=== PATIENT | male | born 1970 | race Caucasian/White ===

== ENCOUNTER 2017-07-15 11:28 | Emergency (ER) | payer BC, OTHER ==
[~2017-07-15] VITALS: Ht 182.9 cm; Wt 97.6 kg
[2017-07-15 11:33] VITALS: TEMP 36.9; Ht 182.9 cm; Wt 97.6 kg
[2017-07-15] MEDS ORDERED: XYLOCAINE 1%/SOD BICARB 20 ML VIAL INFIL ONE (12:00)
--- NOTE | 2017-07-15 12:02 | EMERGENCY ROOM VISIT NOTE ---
ED Visit Note First contact with patient: 11:39 CHIEF COMPLAINT: Left arm laceration HISTORY OF PRESENT ILLNESS: This 46-year-old male patient presents to the emergency department ambulatory after cutting the left anterior forearm. The bleeding has stopped. Denies weakness or numbness of the hand or fingers. He rates his discomfort a 2/10. The patient denies any other injuries. The patient 's Tetanus shot is up to date. REVIEW OF SYSTEMS: A 6 system review of systems was completed with positives and pertinent negatives listed in the HPI. ALLERGIES: No known drug allergies MEDICATIONS: None PMH: None SOCIAL HISTORY: E patient lives locally with family PHYSICAL EXAM: Vital Signs: Reviewed Nurse's notes, vital signs stable. GENERAL : Since a 46-year-old male, in no acute distress, well-developed, well- nourished. SKIN: There is a 4 cm long laceration on the anterior aspect of the left forearm. The edges gape apart with traction. There is no foreign material in the wound and it looks clean. There is minimal bleeding. No deep structures such as tendons, bones, or nerves are seen in the base of the wound. Normal strength and movement of the hand and fingers. There are 2 superficial lacerations one to the hand and one to the second finger. Capillary refill less than 2 seconds. Normal sensation to light and sharp touch. EMERGENCY DEPARTMENT COURSE: I examined the patient. Using sterile technique the wound was cleaned with Betadine. The area was sterilely draped. 5 ml of 1% buffered lidocaine was used to anesthetize the laceration on the arm. Once the patient was numb, the wound was copiously irrigated under pressure with sterile saline. The wound was explored and was as described above. The laceration was repaired using 2 vertical mattress 4-0 nylon sutures and 7 simple interrupted 4- 0 nylon sutures with the wound edges being well approximated. The patient tolerated the procedure well. The bleeding stopped. The area was cleaned with sterile saline and dressed with bacitracin ointment and bandage. The patient was discharged home in good condition. Vital Signs Date Time Temp Pulse Resp B/P (MAP) Pulse Ox O2 Delivery O2 Flow Rate FiO2 07/15/17 13:24 68 16 166/97 99 Room Air 07/15/17 11:33 36.9 80 18 165/101 96 Room Air Departure Information Impression Primary Impression: Laceration Dispostion Home / Self-Care Condition GOOD Referrals Karrie Baker (PCP) Patient Instructions ED Laceration All, My [facility] Additional Instructions Keep wound clean and dry. Do not allow any crusting or dried blood to accumulate on sutures. If this occurs, use a 1:1 solution of hydrogen peroxide/ water on a Q-tip to clean the wound. Use an antibiotic ointment for 3-4 days, then let wound dry. Suture removal in 10-12 days. Return sooner for any signs of infection (increasing redness, swelling, drainage). Ice and elevate for swelling and pain. Ibuprofen 600 mg every 6 hrs for pain. Keep covered when in sun until sutures removed then SPF 50 or higher for one year. Vitamin E oil if desired two weeks after suture removal for reduction of scar.
[2017-07-15 13:24] VITALS: BP 166/97; PULSE 68; O2SAT 99
== END 2017-07-15 13:27 | disposition home or self-care (01) ==
LOC: C.EDB 11:32 → C.EDD 13:27
DX: S51.812A Laceration without foreign body of left forearm, initial encounter (principal); W45.8XXA Other foreign body or object entering through skin, initial encounter; Y92.9 Unspecified place or not applicable

== ENCOUNTER 2018-03-01 17:11 | Emergency (ER) | payer OTHER ==
[~2018-03-01] VITALS: Ht 182.9 cm; Wt 101.0 kg
[2018-03-01 17:27] VITALS: TEMP 36.7; Ht 182.9 cm; Wt 101.0 kg
[2018-03-01] MEDS ORDERED: ONDANSETRON INJ 2 MG/ML 2 ML VIAL IV STA (18:57)
[2018-03-01] MEDS ORDERED: MoRPHine SULFATE 10 MG/ML CARP/VIAL IV STA (18:57)
[2018-03-01] MEDS ORDERED: OPTIRAY 320 IV PRN (19:00)
[2018-03-01] MEDS ORDERED: LISI-461 PO (19:09)
[2018-03-01] MEDS ORDERED: MELO-84 PO (19:09)
[2018-03-01] MEDS ORDERED: ASPI81TA28 PO (19:09)
[2018-03-01] MEDS ORDERED: OMEP20TA PO (19:09)
[2018-03-01] MEDS ORDERED: WLLSR150 PO (19:09)
[2018-03-01] MEDS ORDERED: DILT120C41 PO (19:09)
[2018-03-01] MEDS ORDERED: MULT20CH PO (19:09)
[2018-03-01 19:11] LABS: BASO % 0.2 %; BASO ABS # 0.02 K/uL (0-0.2); EOS % 1.5 %; EOS ABS # 0.13 K/uL (0-0.5); HEMATOCRIT 45.7 % (42-52); HEMOGLOBIN 16.4 g/dL (14.0-18.0); IG# 0.04 K/uL (0.00-0.02); MEAN CELL VOLUME 97.6 fL (80-100); MEAN CORPUSCULAR HGB CONC 35.9 g/dl (32-36); MEAN PLATELET VOLUME 9.3 fL (7.4-10.4); MONO % 11.5 %; MONO ABS # 0.97 K/uL (0.11-0.59); NEUT % 67.3 %; NEUT ABS # 5.65 K/uL (1.4-6.5); PLATELET COUNT 180 K/uL (130-400); RED CELL DISTRIBUTION WIDTH CV 12.4 % (11.5-14.5); RED CELL DISTRIBUTION WIDTH SD 43.8 fL (36.4-46.3); WHITE BLOOD COUNT 8.41 K/uL (4.8-10.8)
[2018-03-01 19:29] LABS: ALBUMIN 3.9 gm/dl (3.4-5.0); CALCIUM 9.3 mg/dl (8.5-10.1); CREATININE 1.03 mg/dl (0.60-1.40); POTASSIUM 3.6 mmol/L (3.5-5.1)
[2018-03-01 19:32] LABS: TOTAL PROTEIN 7.5 gm/dl (6.4-8.2)
--- NOTE | 2018-03-01 20:12 | EMERGENCY ROOM VISIT NOTE ---
History First contact with patient: 18:30 Chief Complaint: GI ASSESSMENT Stated Complaint: GASTRO DISTRESS Nursing Triage Summary: Patient ambulatory to triage with an upright and steady gait, states "I have had stomach cramps for the last couple of days. The last couple of hours have been brutal. I have the chills and nausea. My hands are shaking like crazy. I haven' t eaten anything at all today. All of the pain is in my right lower abdomen and down into my pelvis. I am nauseated and feel constipated." Patient reports feeling like his blood sugar is low. Not diabetic. BS. History of Present Illness The patient is a 47 year old male who presents to the Emergency Room with complaints of abdominal pain. The patient reports that he has had some generalized abdominal cramping for the past 2 days. He states that last night, the pain began to settle into his right lower quadrant. He reports severe pain in the right lower abdomen which radiates across his lower abdomen to the left side. He states that the pain is constant and is a burning sensation with waves of more severe pain. He rates his discomfort a 5/10. He states that the pain is better when he is standing but is worse when he is lying flat down. Pain is associated with nausea and chills. He has not vomited. He has not eaten today. He denies any urinary symptoms or changes in his bowel movements. He denies any history of abdominal issues. He does report that he feels bloated. He has not taken any medication for his symptoms. Review of Systems A complete 10 point review of systems was reviewed with the patient with pertinent positives and negatives as per history of present illness. All else were negative. Past Medical/Surgical History Medical Problems: (1) Hypertension Social History Smoking Status: Former Smoker Alcohol Use: occasionally Marital Status: Housing Status: lives with significant other Occupation Status: employed Current/Historical Medications Scheduled Aspirin (Aspirin Ec), 81 MG PO DAILY Bupropion HCl (Bupropion HCl Sr), 150 MG PO BID Ciprofloxacin Hcl (Cipro), 500 MG PO BID Diltiazem Hcl (Dilt-Xr), 120 MG PO DAILY Lisinopril (Zestril), 10 MG PO BID Meloxicam (Mobic), 15 MG PO DAILY Metronidazole (Flagyl), 500 MG PO TID Multiple Vitamins W/ Minerals (Adult One Daily Gummies), 2 TABS PO DAILY Omeprazole (Omeprazole), 20 MG PO DAILY Scheduled PRN Oxycodone Ir (Roxicodone Ir), 1 TAB PO Q4H PRN for Pain Physical Exam Vital Signs Date Time Temp Pulse Resp B/P (MAP) Pulse Ox O2 Delivery O2 Flow Rate FiO2 03/01/18 21:09 76 20 162/97 97 03/01/18 20:23 68 98 03/01/18 19:53 74 16 177/92 94 Room Air 03/01/18 18:50 71 24 171/102 99 Room Air 03/01/18 17:27 36.7 85 18 181/87 97 Room Air Physical Exam VITALS: Vitals are noted on the nurse's note and reviewed by myself. GENERAL: This is a 47-year-old male, uncomfortable appearing, well-developed well-nourished. SKIN: The skin was without rashes. HEAD: Normocephalic atraumatic. EARS: External auditory canals clear, tympanic membranes pearly herring without erythema or effusion bilaterally. EYES: Pupils equal round and reactive to light and accommodation. MOUTH: Mucous membranes moist. Tonsils are not enlarged. Pharynx without erythema or exudate. HEART: Regular rate and rhythm without murmurs gallops or rubs. LUNGS: Clear to auscultation bilaterally without wheezes, rales or rhonchi. ABDOMEN: Positive bowel sounds x 4. Soft, moderate tenderness to palpation in the right lower quadrant. No guarding or rebound tenderness. Negative Rovsing sign. NEURO: Patient was alert and oriented to person place and time. Medical Decision & Procedures ER Provider Diagnostic Interpretation: ABDOMEN AND PELVIS CT WITH IV AND ORAL CONTRAST FINDINGS: There is a 4 mm nodule within the left lower lobe on image 9. No pneumoperitoneum. No pneumatosis. No fractures within the visualized osseous structures. Hepatic steatosis. The gallbladder, pancreas, spleen, adrenal glands, and kidneys are unremarkable. No hydronephrosis. No retroperitoneal lymphadenopathy. Normal bladder. Focal moderate bowel wall thickening within the mid sigmoid colon with surrounding pericolonic inflammatory change and a thickened diverticulum. This is consistent with acute diverticulitis. No perforation or abscess identified at this time. No evidence for bowel obstruction. Normal appendix. Distended common hepatic duct measuring 1.5 cm. However, no significant intrahepatic bile duct dilatation. IMPRESSION: 1. Acute sigmoid diverticulitis. No perforation or abscess at this time. Recommend follow-up to ensure resolution and to exclude the less likely possibility of an underlying colonic lesion. 2. Distended common hepatic duct measuring 1.5 cm. However, there is no significant intrahepatic bile duct dilatation and the mid to distal common bile duct appears normal in caliber. Therefore, this is of uncertain clinical significance. Recommend correlation with LFTs. 3. Hepatic steatosis. 4. A 4 mm nodule within the left lower lobe. Please refer to the chart below for recommended follow-up. Laboratory Results 03/01/18 18:56 Red Blood Count 4.68, Mean Corpuscular Volume 97.6, Mean Corpuscular Hemoglobin 35.0, Mean Corpuscular Hemoglobin Concent 35.9, Mean Platelet Volume 9.3, Neutrophils (%) (Auto) 67.3, Lymphocytes (%) (Auto) 19.0, Monocytes (%) (Auto) 11.5, Eosinophils (%) (Auto) 1.5, Basophils (%) (Auto) 0.2, Neutrophils # (Auto ) 5.65, Lymphocytes # (Auto) 1.60, Monocytes # (Auto) 0.97, Eosinophils # (Auto ) 0.13, Basophils # (Auto) 0.02 03/01/18 18:56 Test 03/01/18 17:30 03/01/18 18:40 03/01/18 18:56 Bedside Glucose 87 mg/dl (70-99) Urine Color DK YELLOW Urine Appearance CLEAR (CLEAR) Urine pH 7.5 (4.5-7.5) Urine Specific [place] 1.023 (1.000-1.030) Urine Protein NEG (NEG) Urine Glucose (UA) NEG (NEG) Urine Ketones NEG (NEG) Urine Occult Blood NEG (NEG) Urine Nitrite NEG (NEG) Urine Bilirubin NEG (NEG) Urine Urobilinogen NEG (NEG) Urine Leukocyte Esterase NEG (NEG) White Blood Count 8.41 K/uL (4.8-10.8) Red Blood Count 4.68 M/uL (4.7-6.1) Hemoglobin 16.4 g/dL (14.0-18.0) Hematocrit 45.7 % (42-52) Mean Corpuscular Volume 97.6 fL (80-100) Mean Corpuscular Hemoglobin 35.0 pg (25-34) Mean Corpuscular Hemoglobin Concent 35.9 g/dl (32-36) Platelet Count 180 K/uL (130-400) Mean Platelet Volume 9.3 fL (7.4-10.4) Neutrophils (%) (Auto) 67.3 % Lymphocytes (%) (Auto) 19.0 % Monocytes (%) (Auto) 11.5 % Eosinophils (%) (Auto) 1.5 % Basophils (%) (Auto) 0.2 % Neutrophils # (Auto) 5.65 K/uL (1.4-6.5) Lymphocytes # (Auto) 1.60 K/uL (1.2-3.4) Monocytes # (Auto) 0.97 K/uL (0.11-0.59) Eosinophils # (Auto) 0.13 K/uL (0-0.5) Basophils # (Auto) 0.02 K/uL (0-0.2) RDW Standard Deviation 43.8 fL (36.4-46.3) RDW Coefficient of Variation 12.4 % (11.5-14.5) Immature Granulocyte % (Auto) 0.5 % Immature Granulocyte # (Auto) 0.04 K/uL (0.00-0.02) Anion Gap 9.0 mmol/L (3-11) Est Creatinine Clear Calc Drug Dose 109.1 ml/min Estimated GFR () 99.8 Estimated GFR (Non- 86.1 BUN/Creatinine Ratio 11.9 (10-20) Calcium Level 9.3 mg/dl (8.5-10.1) Total Bilirubin 0.9 mg/dl (0.2-1) Aspartate Amino Transf (AST/SGOT) 106 U/L (15-37) Alanine Aminotransferase (ALT/SGPT) 171 U/L (12-78) Alkaline Phosphatase 128 U/L (45-117) Total Protein 7.5 gm/dl (6.4-8.2) Albumin 3.9 gm/dl (3.4-5.0) Globulin 3.6 gm/dl (2.5-4.0) Albumin/Globulin Ratio 1.1 (0.9-2) Lipase 148 U/L (73-393) Medications Administered Medications (Trade) Dose Ordered Sig/Vani Route Start Time Stop Time Status Last Admin Dose Admin Morphine Sulfate (MoRPHine SULFATE INJ) 6 mg NOW STAT IV 03/01/18 18:57 03/01/18 18:58 DC 03/01/18 19:08 6 MG Ondansetron HCl (Zofran Inj) 4 mg NOW STAT IV 03/01/18 18:57 03/01/18 18:58 DC 03/01/18 19:07 4 MG Ciprofloxacin (Cipro 500MG Home Pack) 1 homepack UD ONCE PO 03/01/18 20:45 03/01/18 20:46 DC 03/01/18 21:00 1 HOMEPACK Metronidazole (Flagyl Tab) 1,000 mg NOW STAT PO 03/01/18 20:33 03/01/18 20:36 DC 03/01/18 21:00 1,000 MG Oxycodone HCl (Roxicodone Immediate Rel 5MG Home Pack) 1 homepack UD ONCE PO 03/01/18 21:00 03/01/18 21:01 DC 03/01/18 21:00 1 HOMEPACK ED Course The patient was evaluated as above. Labs were drawn and IV access was obtained. Patient was medicated with 6 mg morphine and [address] of the abdomen and pelvis was performed and read by radiology as above. Patient was reevaluated and findings were discussed. Home packs of medications were ordered. Discharge instructions were reviewed with the patient. The patient verbalized understanding of my assessment and treatment plan and was discharged home in good condition. Medical Decision Differential diagnosis includes appendicitis, kidney stone, diverticulitis, colitis, bowel obstruction, among others. The patient is a 47-year-old male who presents today complaining of right lower quadrant pain. Labs revealed no leukocytosis. Urinalysis was not suggestive of infection. No blood in the urine. CT scan did show evidence of acute diverticulitis. CT additionally showed distention of the common hepatic duct, but no intrahepatic bile duct dilatation. LFTs were mildly elevated. Patient was informed of this finding. I am unsure of the clinical significance at this time, although he will certainly need to be rechecked by his primary care provider. The patient was advised to avoid Tylenol and alcohol. I did check with the pharmacist to ensure that ciprofloxacin and Flagyl were safe to take and did not need to be hepatically adjusted. She confirmed that these were safe to take at the regular dosage for diverticulitis. Patient did request something for pain. He was given a small amount of OxyIR but urged to take this sparingly so as not to mask any worsening symptoms. He will need follow- up with his PCP for recheck of the LFTs as well as follow-up of this episode of diverticulitis. The patient's case was reviewed with Dr. Stephens, ED attending physician, who agreed with my assessment and treatment plan. Based on the patient's presentation and work up, I feel the patient is stable for outpatient treatment. The patient was educated to return to the emergency department for any worsening of their current condition or new/concerning symptoms. He will follow up with his primary care provider. Medication Reconcilliation Current Medication List: was personally reviewed by me Blood Pressure Screening Patient's blood pressure: Elevated blood pressure Blood pressure disposition: Elevated BP felt to be situational, Referred to PCP Impression Primary Impression: Acute diverticulitis Additional Impression: Elevated LFTs Departure Information Dispostion Home / Self-Care Condition GOOD Prescriptions Oxycodone Ir (Roxicodone Ir) 5 Mg Tab 1 TAB PO Q4H Y for Pain, #8 TAB For Initial Treatment Prov: Faiza Pacheco PA-C 03/01/18 Ciprofloxacin Hcl (CIPRO) 500 Mg Tab 500 MG PO BID for 10 Days, #20 TAB Prov: Faiza Pacheco PA-C 03/01/18 Metronidazole (FLAGYL) 500 Mg Tab 500 MG PO TID for 10 Days, #30 TAB Prov: Faiza Pacheco PA-C 03/01/18 Referrals Lizet Montenegro D.O. (PCP) Patient Instructions ED Diverticulitis, My [facility] Additional Instructions You have been treated in the Emergency Department for your Abdominal Pain. Your CT showed diverticulitis. You were prescribed ciprofloxacin to be taken 500 mg twice daily. This is an antibiotic. All antibiotics have the potential to cause diarrhea. Stop this medication and contact a medical provider if you were to develop any significant adverse side effects including: wheezing, shortness of breath, passing out, vomiting, or a diffuse rash. Always take antibiotics as directed and COMPLETE the ENTIRE course regardless of the improvement of your symptoms. You were prescribed Flagyl to be taken 500 mg 3 times daily. This is an antibiotic. All antibiotics have the potential to cause diarrhea. Stop this medication and contact a medical provider if you were to develop any significant adverse side effects including: wheezing, shortness of breath, passing out, vomiting, or a diffuse rash. Always take antibiotics as directed and COMPLETE the ENTIRE course regardless of the improvement of your symptoms. Avoid all alcohol while taking this medication. You have been prescribed Oxy IR to be used for pain control. This is a narcotic medication. You cannot drive or consume alcohol while on this medicine. This medicine should only be used for pain that cannot be controlled with over-the- counter pain medicines. For pain control, you can use the following [id number] medicines (if >12 yo): - Regular strength (200 mg/tab) Advil (ibuprofen) 3-4 tabs every 4-6 hours as needed. Do not exceed a dose of 3200 mg per day. You should keep a clear liquid diet for the next 48 hours, then advance to eating foods as tolerated. As with any trip to the Emergency Department, you should follow-up with your Primary Care Provider from today's visit. Call them to schedule an appointment within 1-2 weeks. You had some elevation of your liver function tests. This should be rechecked by her primary care provider. In the meantime, avoid alcohol and Tylenol as these can be harmful to your liver. Return to the emergency department if your symptoms persist despite treatment plan outlined above or if the following symptoms occur: Worsening pain, fevers, vomiting, passing out, or other new/concerning symptoms. Problem Qualifiers
--- NOTE | 2018-03-01 20:13 | DIAGNOSTIC IMAGING REPORT ---
ABDOMEN AND PELVIS CT WITH IV AND ORAL CONTRAST CT DOSE: 595.60 mGy.cm HISTORY: Right lower quadrant abdominal pain. TECHNIQUE: Multiaxial CT images of the abdomen and pelvis were performed following the use of intravenous and oral contrast. A dose lowering technique was utilized adhering to the principles of ALARA. COMPARISON STUDY: None. FINDINGS: There is a 4 mm nodule within the left lower lobe on image 9. No pneumoperitoneum. No pneumatosis. No fractures within the visualized osseous structures. Hepatic steatosis. The gallbladder, pancreas, spleen, adrenal glands, and kidneys are unremarkable. No hydronephrosis. No retroperitoneal lymphadenopathy. Normal bladder. Focal moderate bowel wall thickening within the mid sigmoid colon with surrounding pericolonic inflammatory change and a thickened diverticulum. This is consistent with acute diverticulitis. No perforation or abscess identified at this time. No evidence for bowel obstruction. Normal appendix. Distended common hepatic duct measuring 1.5 cm. However, no significant intrahepatic bile duct dilatation. IMPRESSION: 1. Acute sigmoid diverticulitis. No perforation or abscess at this time. Recommend follow-up to ensure resolution and to exclude the less likely possibility of an underlying colonic lesion. 2. Distended common hepatic duct measuring 1.5 cm. However, there is no significant intrahepatic bile duct dilatation and the mid to distal common bile duct appears normal in caliber. Therefore, this is of uncertain clinical significance. Recommend correlation with LFTs. 3. Hepatic steatosis. 4. A 4 mm nodule within the left lower lobe. Please refer to the chart below for recommended follow-up. Please refer to below summary of Fleischner criteria recommendations for follow-up of incidental CT nodules (Lori Fuentes, Guidelines for management of small pulmonary nodules detected on CT scans: A statement from the Fleischner Society, Radiology 237: [phone].) SOLID NODULES Solitary nodule size: <6 mm * Low risk patients: no follow-up needed * high risk patients: optional CT at 12 months Solitary nodule size: 6-8 mm * Low risk patients: follow-up at 6-12 months, then consider further follow-up at 18-24 months * high risk patients: initial follow-up CT at 6-12 months and then at 18-24 months if no change Solitary nodule size: >8 mm * either low or high risk patients - consider follow-up CT at 3 months, and/or CT-PET, and/or biopsy Multiple nodules size: <6 mm * Low risk patients: no routine follow-up * high risk patients: optional CT at 12 months Multiple nodules size: 6-8 mm * Low risk patients: follow-up at 3-6 months, then consider further follow-up at 18-24 months * high risk patients: follow-up at 3-6 months, then at 18-24 months if no change Multiple nodules size: >8 mm * Low risk patients: follow-up at 3-6 months, then consider further follow-up at 18-24 months * high risk patients: follow-up at 3-6 months, then at 18-24 months if no change Note: newly detected indeterminate nodule in persons 35 years of age or older. * Low risk patients: minimal or absent history of smoking and/or other known risk factors * high risk patients: history of smoking or of other known risk factors (e.g. first degree relative with lung cancer, or exposure to asbestos, radon, uranium) * if a nodule up to 8 mm is partly solid or is ground glass further follow-up is required after 24 months to exclude possible slow growing adenocarcinoma (KERRI) SUBSOLID NODULES Solitary pure ground-glass nodule * nodule size <6 mm - no CT follow-up required * nodule size >=6 mm - follow-up CT at 6-12 months, then every 2 years until 5 years Solitary part-solid nodule * nodule size <6 mm - no CT follow-up required * nodule size >=6 mm - follow-up CT at 3-6 months. If unchanged, and solid component remains <6 mm, then annual follow-up for 5 years Multiple subsolid nodules * nodule size <6 mm - follow-up CT at 3-6 months, consider further follow-up at 2 and 4 years if stable * nodule size >=6 mm - follow-up CT at 3-6 months, subsequent management based on the most suspicious nodule(s) Electronically signed by: Paddy Lucero M.D. 03/01/2018 8:12 PM Dictated Date/Time: 03/01/2018 8:06 PM
[2018-03-01] MEDS ORDERED: METRONIDAZOLE 250 MG TAB PO STA (20:33)
[2018-03-01] MEDS ORDERED: METR500T PO (20:37)
[2018-03-01] MEDS ORDERED: CIPR-255 PO (20:37)
[2018-03-01] MEDS ORDERED: HYDR-5688 PO (20:38)
[2018-03-01] MEDS ORDERED: OXYC1TAB3 PO (20:44)
[2018-03-01] MEDS ORDERED: CIPROFLOXACIN 500MG HOME PACK PO ONE (20:45)
[2018-03-01] MEDS ORDERED: NORCO 5/325MG HOME PACK PO ONE (20:45)
[2018-03-01] MEDS ORDERED: OXYCODONE IR HOME PACK PO ONE (21:00)
[2018-03-01 21:09] VITALS: BP 162/97; PULSE 76; O2SAT 97
== END 2018-03-01 21:11 | disposition home or self-care (01) ==
LOC: C.EDB 17:12 → C.EDC 21:11
DX: K57.92 Diverticulitis of intestine, part unspecified, without perforation or abscess without bleeding (principal); R79.89 Other specified abnormal findings of blood chemistry; K83.8 Other specified diseases of biliary tract; I10 Essential (primary) hypertension; Z79.82 Long term (current) use of aspirin; Z87.891 Personal history of nicotine dependence

== ENCOUNTER → 2018-06-29 | Outpatient (CLI) | payer OTHER ==
[~2018-06-29] MED LIST: ASPI81TA28 PO; ATOR-26 PO; DILT120C41 PO; LISI-461 PO; METO25TA56 PO; MULT20CH PO; NTRGSL/4 UT; OMEP20TA PO; PLV75 PO; TRMO2580 TOP; WLLSR150 PO
--- NOTE | 2018-06-29 15:55 | DIAGNOSTIC IMAGING REPORT ---
SOFT TISS HEAD/NECK-THYROID CLINICAL HISTORY: 47 years-old Male with R22.1 Localized swelling, mass or lump of neckWith attention to. Acute pain and swelling of the left supraclavicular neck COMPARISON: None available TECHNIQUE: Multiple real time sonographic images of the left and right supraclavicular neck were obtained accessing herring scale appearance and color doppler flow. FINDINGS: Within the area of clinical concern within the left supraclavicular tissues, no focal mass, lymph node, tissue heterogeneity, hyperemia or drainable fluid collection identified. Images of the right supraclavicular tissues were also obtained for comparison. Symmetric appearing tissue noted bilaterally. IMPRESSION: No focal mass or other abnormality identified within the left supraclavicular tissues. The above report was generated using voice recognition software. It may contain grammatical, syntax or spelling errors. Electronically signed by: Juan A March M.D. 06/29/2018 3:53 PM Dictated Date/Time: 06/29/2018 3:52 PM
== END | disposition home or self-care (01) ==
LOC: C.ULTRBC 15:15
PROVIDERS: ATTEND Nurse Practitioner Family
DX: R22.1 Localized swelling, mass and lump, neck (principal)

== ENCOUNTER → 2018-06-29 | Outpatient (CLI) | payer OTHER ==
[2018-06-29 17:34] LABS: ALBUMIN 3.8 gm/dl (3.4-5.0); ALKALINE PHOSPHATASE 96 U/L (45-117); ALT/SGPT 140 U/L (12-78); AST/SGOT 99 U/L (15-37); BLOOD UREA NITROGEN 13 mg/dl (7-18); CALCIUM 8.8 mg/dl (8.5-10.1); CARBON DIOXIDE 28 mmol/L (21-32); CHOLESTEROL 123 mg/dl (0-200); CREATININE 1.09 mg/dl (0.60-1.40); GLUCOSE 79 mg/dl (70-99); LDL CHOLESTEROL CALCULATED 52 mg/dl; POTASSIUM 3.8 mmol/L (3.5-5.1); SODIUM 140 mmol/L (136-145); TOTAL PROTEIN 7.1 gm/dl (6.4-8.2)
== END | disposition home or self-care (01) ==
LOC: C.LABBFT 11:17
PROVIDERS: ATTEND Neuromusculoskeletal Medicine & OMM
DX: R79.89 Other specified abnormal findings of blood chemistry (principal)

== ENCOUNTER → 2018-07-04 | Outpatient (CLI) | payer OTHER | END | disposition home or self-care (01) | LOC: C.LAB1850 10:52 | PROVIDERS: ATTEND Neuromusculoskeletal Medicine & OMM | DX: T14.8XXA Other injury of unspecified body region, initial encounter (principal); X58.XXXA Exposure to other specified factors, initial encounter ==

== ENCOUNTER → 2018-07-15 | Outpatient (CLI) | payer OTHER ==
[~2018-07-15] MED LIST changes: +CLOP1TAB15 PO; +CRS20 PO; +LISI40TA PO; -NTRGSL/4 UT; +OPTIRAY 320 IV PRN; +PANT40TA2 PO
--- NOTE | 2018-07-15 18:15 | DIAGNOSTIC IMAGING REPORT ---
CT OF THE ABDOMEN AND PELVIS WITH CONTRAST CLINICAL HISTORY: Left lower quadrant pain. Rectal bleeding. History of diverticulitis. COMPARISON STUDY: CT of the abdomen and pelvis March 01, 2018. TECHNIQUE: Following IV administration of 93 mL of Optiray-320, axial images of the abdomen and pelvis were obtained from the lung bases to the proximal femurs. Images were reviewed in the axial, sagittal, and coronal planes. IV contrast was administered without complication. A dose lowering technique was utilized adhering to the principles of ALARA. Oral contrast was administered. CT DOSE: 950.61 mGy.cm FINDINGS: Fatty infiltration of the liver is noted. Dilatation of the common hepatic duct is unchanged since exam of March 01, 2018. There is no pancreatic ductal dilatation. No hepatic lesions are identified. The spleen, adrenal glands and kidneys are normal. There is no evidence for a bowel obstruction. The appendix is normal. There is sigmoid diverticulosis. There is minimal infiltration adjacent to the proximal sigmoid colon. There is mild colonic wall thickening. No free air or abscess is present. No suspicious osseous lesion is noted. There is no lymphadenopathy. IMPRESSION: 1. Sigmoid diverticulosis with minimal infiltration adjacent to the proximal sigmoid colon which favors mild acute sigmoid diverticulitis. No free air or abscess. 2. Fatty liver. 3. No change in mild dilatation of the common hepatic duct since exam of March 01, 2018. Stability favors a benign etiology however correlation with obstructive liver function tests is recommended. Electronically signed by: Pieter Villegas M.D. 07/15/2018 6:14 PM Dictated Date/Time: 07/15/2018 6:07 PM
== END | disposition home or self-care (01) ==
LOC: C.CTS 15:37
PROVIDERS: ATTEND Physician Assistant
DX: R10.32 Left lower quadrant pain (principal); Z87.19 Personal history of other diseases of the digestive system; K62.5 Hemorrhage of anus and rectum; K62.89 Other specified diseases of anus and rectum; K76.0 Fatty (change of) liver, not elsewhere classified; K57.30 Diverticulosis of large intestine without perforation or abscess without bleeding

== ENCOUNTER → 2018-07-18 | Outpatient (CLI) | payer OTHER ==
[~2018-07-18] MED LIST changes: -OPTIRAY 320 IV PRN
[2018-07-18 12:46] LABS: ALBUMIN 3.6 gm/dl (3.4-5.0); ALKALINE PHOSPHATASE 118 U/L (45-117); ALT/SGPT 98 U/L (12-78); AST/SGOT 73 U/L (15-37); BLOOD UREA NITROGEN 13 mg/dl (7-18); CALCIUM 8.4 mg/dl (8.5-10.1); CARBON DIOXIDE 26 mmol/L (21-32); CREATININE 1.02 mg/dl (0.60-1.40); GLUCOSE 99 mg/dl (70-99); POTASSIUM 3.8 mmol/L (3.5-5.1); SODIUM 139 mmol/L (136-145); TOTAL PROTEIN 7.1 gm/dl (6.4-8.2)
[2018-07-18 13:35] LABS: HEP C IGG 13 YRS+OLDER_RFLX NEG (NEG)
[2018-07-19 15:09] LABS: ANA SCREEN TC 249X POSITIVE (NEGATIVE)
[2018-07-19 16:54] LABS: ANA TITER 1:40 TITER (<1:40)
== END | disposition home or self-care (01) ==
LOC: C.LAB1850 11:34
PROVIDERS: ATTEND Physician Assistant
DX: R94.5 Abnormal results of liver function studies (principal)

== ENCOUNTER 2018-07-21 12:01 | Inpatient (IN) | payer OTHER ==
[~2018-07-21] VITALS: Ht 180.3 cm; Wt 102.0 kg
[~2018-07-21 12:01] MED LIST changes: -CLOP1TAB15 PO; -CRS20 PO; -LISI40TA PO; -PANT40TA2 PO
[2018-07-21] MEDS ORDERED: SODIUM CHLORIDE 0.9% 1000ML 500 ML IV STA (12:27)
[2018-07-21] MEDS ORDERED: CLOP1TAB15 PO (12:31)
[2018-07-21] MEDS ORDERED: LISI40TA PO (12:31)
--- NOTE | 2018-07-21 13:05 | DIAGNOSTIC IMAGING REPORT ---
CHEST ONE VIEW PORTABLE CLINICAL HISTORY: 47 years-old Male presenting with CHEST PAIN. TECHNIQUE: Portable upright AP view of the chest was obtained. COMPARISON: None. FINDINGS: Cardiomediastinal silhouette normal. No focal opacity. No large effusion or pneumothorax. Osseous structures normal. Upper abdomen normal. IMPRESSION: 1. No acute cardiopulmonary disease. Electronically signed by: Raphael Ray M.D. 07/21/2018 1:04 PM Dictated Date/Time: 07/21/2018 1:03 PM
[2018-07-21 13:16] LABS: HEMATOCRIT 42.6 % (42-52); HEMOGLOBIN 14.9 g/dL (14.0-18.0); MEAN CELL VOLUME 98.2 fL (80-100); MEAN CORPUSCULAR HEMOGLOBIN 34.3 pg (25-34); MEAN PLATELET VOLUME 9.5 fL (7.4-10.4); PLATELET COUNT 183 K/uL (130-400); RED CELL DISTRIBUTION WIDTH CV 12.4 % (11.5-14.5); RED CELL DISTRIBUTION WIDTH SD 44.3 fL (36.4-46.3)
[2018-07-21 13:19] LABS: ALBUMIN 3.9 gm/dl (3.4-5.0); CREATININE 1.33 mg/dl (0.60-1.40); POTASSIUM 3.7 mmol/L (3.5-5.1); TOTAL PROTEIN 7.7 gm/dl (6.4-8.2)
[2018-07-21] MEDS ORDERED: ACETAMINOPHEN 325 MG TAB PO PRN (14:30)
[2018-07-21] MEDS ORDERED: ALUMINUM/MAGNESIUM/SIMETH (MAALOX MAX) 30 ML UDC PO PRN (14:30)
[2018-07-21] MEDS ORDERED: NITROGLYCERIN 0.4 MG SL PER TAB CHARGE SL PRN (14:30)
[2018-07-21] MEDS ORDERED: ZOLPIDEM TARTRATE 5 MG TAB PO PRN (14:30)
[2018-07-21] MEDS ORDERED: POLYETHYLENE (MIRALAX) 17 GM PACK PO PRN (14:30)
[2018-07-21] MEDS ORDERED: MoRPHine SULFATE 2 MG/ML CARP IV PRN (14:30)
[2018-07-21] MEDS ORDERED: ONDANSETRON INJ 2 MG/ML 2 ML VIAL IV PRN (14:30)
[2018-07-21] MEDS ORDERED: HEPARIN 25000 UNIT/500 ML D5W ONE (14:30)
[2018-07-21] MEDS ORDERED: MAGNESIUM HYDROXIDE SUSP 30 ML UDC PO PRN (14:30)
--- NOTE | 2018-07-21 14:35 | History and Physical ---
History & Physical Date & Time of Service: Jul 21, 2018 at 14:28 Chief Complaint: Chest Pain Primary Care Physician: Moise Drake D.O. History of Present Illness Source: patient, hospital records, other 47 y/o M Hx CAD, HTN, HLD. Cath 05/16 resulting in RCA stent. The pt presents with central CP, SOB, nausea and diaphoresis. He reports that he was working the prior day when he developed symptoms. He stopped working and drove home. His symptoms had abated within 15 min, however, he continued to have a poking sensation in his chest overnight. He was attending cardiac rehab prior to arrival when he developed CP again. He was provided with NTG which led to resolution of the pain. An EKG and labs were obtained. The EKG did not show ischemic changes. Initial troponin returned elevated however. The pt reports missing one dose of Plavix 5 days ago and has otherwise complied with his medications. Past Medical/Surgical History 1) HTN 2) HLD 3) CAD - RCA stent - Cath report 05/16: 1. Left main coronary artery: The LMCA is large in caliber. No significant CAD. 2. Left anterior descending: The LAD is large in caliber and extends to the apex. Proximal LAD 10-20%. There is a small caliber D1, large caliber D2, and small to medium caliber D3. No significant CAD within the diagonal vessels or remaining LAD. 3. Circumflex: The circumflex is a large caliber vessel and continues distally as a small caliber vessel. There is a large caliber OM1. No significant CAD within the circumflex system. 4. Right coronary artery: The RCA is dominant and a large caliber vessel. Proximal RCA 30%. Mid RCA has a 50-70% stenosis. There is a large caliber PDA and medium caliber PL without significant CAD. NAVID 3 flow. 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 Marital Status: Occupational Status: employed Allergies Coded Allergies: Codeine (Verified Allergy, Intermediate, Hives, swelling, 07/21/18) Penicillins (Verified Allergy, Intermediate, Hives, swelling, 07/21/18) Home Medications Scheduled Aspirin (Aspirin Ec), 81 MG PO DAILY Atorvastatin (Lipitor), 1 TAB PO DAILY Clopidogrel (Plavix), 75 MG PO DAILY Diltiazem Hcl (Dilt-Xr), 120 MG PO DAILY Lisinopril (Zestril), 40 MG PO DAILY Metoprolol Tartrate (Lopressor) (Lopressor), 1 TAB PO BID Multiple Vitamins W/ Minerals (Adult One Daily Gummies), 2 TABS PO DAILY Omeprazole (Omeprazole), 20 MG PO DAILY Review of Systems Constitutional: + sweats, No fever, No chills Eyes: No worsening of vision ENT: No hearing loss, No unusual epistaxis, No nasal symptoms Respiratory: + shortness of breath (with CP), No cough, No sputum, No wheezing Abdomen: No nausea Musculoskeletal: No joint pain Genitourinary - Male: No hematuria, No dysuria Neurologic: No memory loss, No paralysis, No weakness Psychiatric: No depression symptoms Endocrine: No fatigue Hematologic / Lymphatic: No abnormal bleeding/bruising Integumentary: No rash Allergic / Immunologic: No environmental allergies Physical Exam Vital Signs Date Time Temp Pulse Resp B/P (MAP) Pulse Ox O2 Delivery O2 Flow Rate FiO2 07/21/18 13:47 52 20 157/74 97 Room Air 07/21/18 12:43 59 20 142/83 97 Room Air 07/21/18 12:08 61 07/21/18 12:04 97 Room Air 07/21/18 12:04 97 Room Air 07/21/18 12:04 37.2 58 16 163/81 97 Room Air General Appearance: WD/WN, no apparent distress Head: normocephalic Eyes: normal inspection ENT: normal ENT inspection, pharynx normal Neck: supple, no JVD Respiratory/Chest: chest non-tender, lungs clear, normal breath sounds Cardiovascular: regular rate, rhythm, no edema, no gallop Abdomen/GI: normal bowel sounds, non tender, soft Back: normal inspection, no CVA tenderness Extremities/Musculoskelatal: normal inspection, no calf tenderness 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, no motor/sensory deficits, alert, oriented x 3 Skin: normal color Diagnostics Laboratory Results Results Past 24 Hours Test 07/21/18 12:20 Range/Units White Blood Count 5.70 4.8-10.8 K/uL Red Blood Count 4.34 4.7-6.1 M/uL Hemoglobin 14.9 14.0-18.0 g/dL Hematocrit 42.6 42-52 % Mean Corpuscular Volume 98.2 80-100 fL Mean Corpuscular Hemoglobin 34.3 25-34 pg Mean Corpuscular Hemoglobin Concent 35.0 32-36 g/dl RDW Standard Deviation 44.3 36.4-46.3 fL RDW Coefficient of Variation 12.4 11.5-14.5 % Platelet Count 183 130-400 K/uL Mean Platelet Volume 9.5 7.4-10.4 fL Prothrombin Time 10.9 9.0-12.0 SECONDS Prothromb Time International Ratio 1.0 0.9-1.1 Activated Partial Thromboplast Time 28.0 21.0-31.0 SECONDS Partial Thromboplastin Ratio 1.1 Sodium Level 134 136-145 mmol/L Potassium Level 3.7 3.5-5.1 mmol/L Chloride Level 101 98-107 mmol/L Carbon Dioxide Level 23 21-32 mmol/L Anion Gap 10.0 3-11 mmol/L Blood Urea Nitrogen 18 7-18 mg/dl Creatinine 1.33 0.60-1.40 mg/dl Est Creatinine Clear Calc Drug Dose 84.6 ml/min Estimated GFR () 73.3 Estimated GFR (Non- 63.2 BUN/Creatinine Ratio 13.6 10-20 Random Glucose 106 70-99 mg/dl Calcium Level 9.0 8.5-10.1 mg/dl Total Bilirubin 0.9 0.2-1 mg/dl Aspartate Amino Transf (AST/SGOT) 155 15-37 U/L Alanine Aminotransferase (ALT/SGPT) 149 12-78 U/L Alkaline Phosphatase 120 45-117 U/L Troponin I 0.270 0-0.045 ng/ml Total Protein 7.7 6.4-8.2 gm/dl Albumin 3.9 3.4-5.0 gm/dl Globulin 3.8 2.5-4.0 gm/dl Albumin/Globulin Ratio 1.0 0.9-2 EKG Sinus jessenia, LVH Impression Assessment and Plan 47 y/o M Hx CAD, HTN, HLD. Cath 05/16 resulting in RCA stent. The pt presents with central CP, SOB, nausea and diaphoresis. He reports that he was working the prior day when he developed symptoms. He stopped working and drove home. His symptoms had abated within 15 min, however, he continued to have a poking sensation in his chest overnight. He was attending cardiac rehab prior to arrival when he developed CP again. He was provided with NTG which led to resolution of the pain. An EKG and labs were obtained. The EKG did not show ischemic changes. Initial troponin returned elevated however. The pt reports missing one dose of Plavix 5 days ago and has otherwise complied with his medications. 1) CAD/NSTEMI - placed on full-dose Heparin - cont Lipitor, ASA, Plavix, Metoprolol. Cardiology consulted as there is concern for stent occlusion. 2) HTN - cont Diltiazem, Metoprolol 3) HLD - cont Lipitor - is on high-intensity Tx Full code - Full dose Heparin Total time for this admit including review of labs, meds, imaging, records - discussion with pt and ER attending - 38 min Resuscitation Status VTE Prophylaxis Will order VTE Prophylaxis: Yes
[2018-07-21 15:00] VITALS: O2SAT 98; Ht 180.3 cm; Wt 102.0 kg
--- NOTE | 2018-07-21 15:17 | EMERGENCY ROOM VISIT NOTE ---
History Report prepared by Shiloh: Jose Fontaine Under the Supervision of: Dr. Jose Perez M.D. First contact with patient: 12:23 Chief Complaint: CARDIAC ASSESSMENT Stated Complaint: CHEST PAIN Nursing Triage Summary: Patient was at cardiac rehab due to having chest pain & pressure yesterday while working. 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 PT reported SOB last evening but denies now. Cardiac rehab specialist administered 1 nitro tablet which relieved the chest pressure. EKG showed sinus bradycardia, but the nurse reported that his troponin was mildly elevated. This past May pt had a cath performed and stent placed RCA. PT is pain free at this time. History of Present Illness The patient is a 47 year old male who presents to the Emergency Room with complaints of intermittent chest pain beginning yesterday around 15:30-16:00. 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 He reports that after a [address] home, the chest pressure became a minor "twinge," and was resolved with rest. He notes that last night he was still experiencing the diaphoresis and shortness of breath. He states that today, he has been experiencing more chest pain, describing the sensation as if someone is poking him in that region. The patient reports that he went to cardiac rehabilitation today and was found to have an elevated troponin level. He notes that he was given nitroglycerin today, which improved his symptoms. He notes he currently feels "okay." The patient denies a history of these symptoms, but states that he had a coronary stent placed 5 weeks ago. He states that he regularly takes aspirin and Plavix, noting that 8 days ago he missed one dose. He reports that this past weekend he was placed on 2 antibiotics, possibly Cipro and Flagyl, for diverticulitis. He states his PCP is Dr. Vidal Love. Source of History: patient Onset: yesterday around 15:30-16:00 Position: chest Symptom Intensity: yesterday mild to moderate Timing: intermittent Modifying Factors (Worsening): exertion Modifying Factors (Relieving): rest, other (nitroglycerin) Associated Symptoms: + diaphoresis, + SOB Review of Systems See HPI for pertinent positives & negatives. A total of 10 systems reviewed and were otherwise negative. Past Medical & Surgical Medical Problems: (1) Hypertension (2) NSTEMI (non-ST elevated myocardial infarction) Family History Cancer Diabetes mellitus FH: heart disease FHx: lung disease Kidney disease Kidney stones Social History Smoking Status: Former Smoker Alcohol Use: occasionally Marital Status: Housing Status: lives with significant other Occupation Status: employed Current/Historical Medications Scheduled Aspirin (Aspirin Ec), 81 MG PO DAILY Atorvastatin (Lipitor), 1 TAB PO DAILY Clopidogrel (Plavix), 75 MG PO DAILY Diltiazem Hcl (Dilt-Xr), 120 MG PO DAILY Lisinopril (Zestril), 40 MG PO DAILY Metoprolol Tartrate (Lopressor) (Lopressor), 1 TAB PO BID Multiple Vitamins W/ Minerals (Adult One Daily Gummies), 2 TABS PO DAILY Omeprazole (Omeprazole), 20 MG PO DAILY Allergies Coded Allergies: Codeine (Verified Allergy, Intermediate, Hives, swelling, 07/21/18) Penicillins (Verified Allergy, Intermediate, Hives, swelling, 07/21/18) Physical Exam Vital Signs Date Time Temp Pulse Resp B/P (MAP) Pulse Ox O2 Delivery O2 Flow Rate FiO2 07/21/18 13:47 52 20 157/74 97 Room Air 07/21/18 12:43 59 20 142/83 97 Room Air 07/21/18 12:08 61 07/21/18 12:04 97 Room Air 07/21/18 12:04 97 Room Air 07/21/18 12:04 37.2 58 16 163/81 97 Room Air Physical Exam GENERAL: Patient is in no acute distress. HEENT: No acute trauma, normocephalic atraumatic, mucous membranes moist, no nasal congestion, no scleral icterus. NECK: No stridor, no adenopathy, no meningismus, trachea is midline. LUNGS: Clear to auscultation bilaterally, no wheeze, no rhonchi, breath sounds equal. HEART: Bradycardic with a regular rhythm. No murmurs. ABDOMEN: Soft, nontender, bowel sounds positive, no hernias, no peritonitis. EXTREMITIES: No cyanosis or edema, full range of motion of all the joints without pain or difficulty, no signs for acute trauma. NEUROLOGIC: Oriented x 3, no acute motor or sensory deficits, no focal weakness. SKIN: No rash, no jaundice, no diaphoresis. Medical Decision & Procedures ER Provider Diagnostic Interpretation: Radiology results as stated below per my review and radiologist interpretation: CHEST ONE VIEW PORTABLE CLINICAL HISTORY: 47 years-old Male presenting with CHEST PAIN. TECHNIQUE: Portable upright AP view of the chest was obtained. COMPARISON: None. FINDINGS: Cardiomediastinal silhouette normal. No focal opacity. No large effusion or pneumothorax. Osseous structures normal. Upper abdomen normal. IMPRESSION: 1. No acute cardiopulmonary disease. Electronically signed by: Raphael Ray M.D. 07/21/2018 1:04 PM Dictated Date/Time: 07/21/2018 1:03 PM Laboratory Results 07/21/18 12:20 07/21/18 12:20 Test 07/21/18 12:20 Red Blood Count 4.34 M/uL (4.7-6.1) Mean Corpuscular Volume 98.2 fL (80-100) Mean Corpuscular Hemoglobin 34.3 pg (25-34) Mean Corpuscular Hemoglobin Concent 35.0 g/dl (32-36) RDW Standard Deviation 44.3 fL (36.4-46.3) RDW Coefficient of Variation 12.4 % (11.5-14.5) Mean Platelet Volume 9.5 fL (7.4-10.4) Prothrombin Time 10.9 SECONDS (9.0-12.0) Prothromb Time International Ratio 1.0 (0.9-1.1) Activated Partial Thromboplast Time 28.0 SECONDS (21.0-31.0) Partial Thromboplastin Ratio 1.1 Anion Gap 10.0 mmol/L (3-11) Est Creatinine Clear Calc Drug Dose 84.6 ml/min Estimated GFR () 73.3 Estimated GFR (Non- 63.2 BUN/Creatinine Ratio 13.6 (10-20) Calcium Level 9.0 mg/dl (8.5-10.1) Total Bilirubin 0.9 mg/dl (0.2-1) Aspartate Amino Transf (AST/SGOT) 155 U/L (15-37) Alanine Aminotransferase (ALT/SGPT) 149 U/L (12-78) Alkaline Phosphatase 120 U/L (45-117) Troponin I 0.270 ng/ml (0-0.045) Total Protein 7.7 gm/dl (6.4-8.2) Albumin 3.9 gm/dl (3.4-5.0) Globulin 3.8 gm/dl (2.5-4.0) Albumin/Globulin Ratio 1.0 (0.9-2) Laboratory results reviewed by me. Medications Administered Medications (Trade) Dose Ordered Sig/Vani Route Start Time Stop Time Status Last Admin Dose Admin Sodium Chloride 500 ml @ 999 mls/hr Q31M STAT IV 07/21/18 12:27 07/21/18 12:57 DC 07/21/18 12:42 999 MLS/HR ECG Per My Interpretation Indication: chest pain Rate (beats per minute): 51 Rhythm: sinus bradycardia Findings: other (No ST elevation. No PVCs. LVH is present.) ED Course 1226: The patient was evaluated in room B4B. A complete history and physical exam was performed. 1227: Ordered Sodium Chloride 500 ml @ 999 mls/hr IV 1339: I updated with the patient on the current plan. 1342: I consulted Dr. Marlee Cesar [facility] Hospitalist. He will reevaluate the patient for hospitalization. Medical Decision Differential diagnosis: angina, MA, electrolyte imbalance, anemia, pneumonia, pericarditis, PE There is no leukocytosis or concerning anemia. No significant electrolyte abnormality or kidney failure. The patient does have some liver enzyme elevations. Chest film does not show mediastinal widening, pneumonia or pneumothorax. EKG shows a sinus rhythm, there was no acute ischemic change. Cardiac enzyme testing 1 is elevated, this is concerning for recent cardiac injury/strain. The patient was given a 500 cc saline bolus. He is currently resting comfortably. The patient presents with exertional chest pain. He had exertional chest pain yesterday and then again today. Today's event occurred at cardiac rehab. Patient had received nitroglycerin prior to arrival. He is currently pain-free but does have a troponin elevation. Patient requires further cardiac workup, a hospital stay is warranted. I spoke to the patient and case management. The on -call hospitalist was consulted. Medication Reconcilliation Current Medication List: was personally reviewed by me Blood Pressure Screening Patient's blood pressure: Elevated blood pressure referred to hospitalist Consults Time Called: [id number] Consulting Physician: Dr. Marlee Cesar [facility] Hospitalist Returned Call: [phone] Marlee Cesar [facility] Hospitalist. He will reevaluate the patient for hospitalization. Impression Primary Impression: Precordial chest pain Additional Impression: Elevated troponin Scribe Attestation The scribe's documentation has been prepared under my direction and personally reviewed by me in its entirety. I confirm that the note above accurately reflects all work, treatment, procedures, and medical decision making performed by me. Departure Information Dispostion Being Evaluated By Hospitalist Referrals Moise Drake D.O. (PCP) Patient Instructions My [facility] Problem Qualifiers
[2018-07-21 16:23] VITALS: BP 155/89; PULSE 57; TEMP 36.9
[2018-07-21 16:30] VITALS: O2SAT 98
[2018-07-21] MEDS: NITROGLYCERIN 2% OINTMENT 30GM TUBE EXT SCH ×2 (17:13→22:48)
--- NOTE | 2018-07-21 17:51 | Cardiology Consultation ---
Cardiology Consultation Date of Consultation: Jul 21, 2018. Requesting Physician: Dr. Whalen Reason for Consultation: Chest pain Pt evaluation today including: conversation w/ patient, conversation w/ family , physical exam, lab review, review of studies, review of inpatient medication list History of Present Illness This is a 47-year-old gentleman who had a history of angina for which he underwent stress testing, that was abnormal and therefore he underwent cardiac catheterization on June 08, 2018. He was found to have multivessel coronary disease but the right coronary artery was significantly stenotic (based on flow measurements) therefore he had a drug-eluting stent placed on that day. He was discharged and has been in cardiac rehab. He was building a shed yesterday which involved walking back and forth getting tools and he had typical substernal chest pain which he feels was the same as what he had in the past, this lasted 15-20 minutes and resolved but he was left with a heavy sensation after that. He went to cardiac rehab this morning and told them about it, blood tests were drawn and he was sent to the emergency room. He was admitted as his troponin was slightly abnormal, and on arrival in the floor he had a different type of substernal chest discomfort. This was a cramping type discomfort which he calls a spasm, he tells me that he has had it before but certainly not in the last 6 months and not related to exertion as his other discomfort was. The discomfort yesterday was similar to his prior angina. He was treated with intravenous heparin and topical nitroglycerin and he is had a brief "spasm" even after this treatment but it was brief and was this atypical type discomfort from his angina. He is not having shortness of breath or palpitations. He has not noticed any change in his exercise ability. He also has abnormal liver function tests, the value seem to fluctuate and he tells me are felt not to be related to statin therapy. Past Medical/Surgical History Hypertension Coronary artery disease PCI June 08, 2018 Family History Cancer Diabetes mellitus FH: heart disease FHx: lung disease Kidney disease Kidney stones Social History Smoking Status: Former Smoker History of Alcohol Use: Yes (2 [employer]/MONTH) Review of Systems Constitutional: No fever, No weight loss, No weakness Respiratory: No cough, No wheezing, No shortness of breath, No dyspnea on exertion Cardiac: + see HPI, + chest pain, No orthopnea, No PND, No edema, No palpitations Abdomen: No pain, No nausea, No vomiting, No diarrhea, No GI bleeding Male : No urinary frequency, No nocturia more than once/night, No slowing stream, No sexual dysfunction Neurologic: No paralysis, No weakness, No numbness/tingling, No balance problems Heme: No abnormal bleeding/bruising, No clotting problems Endo: No fatigue Skin: No problem reported All Other Systems: Reviewed and Negative Allergies Coded Allergies: Codeine (Verified Allergy, Intermediate, Hives, swelling, 07/21/18) Penicillins (Verified Allergy, Intermediate, Hives, swelling, 07/21/18) Medications Current Inpatient Medications Medications (Trade) Dose Ordered Sig/Vani Route Start Time Stop Time Status Last Admin Dose Admin Aspirin (Ecotrin Tab) 81 mg DAILY PO 07/22/18 09:00 08/21/18 08:59 Atorvastatin Calcium (Lipitor Tab) 80 mg DAILY PO 07/22/18 09:00 08/21/18 08:59 Clopidogrel Bisulfate (plAVix TAB) 75 mg DAILY PO 07/22/18 09:00 08/21/18 08:59 Diltiazem HCl (Dilacor Xr Cap) 120 mg DAILY PO 07/22/18 09:00 08/21/18 08:59 Lisinopril (Zestril Tab) 40 mg DAILY PO 07/22/18 09:00 08/21/18 08:59 Metoprolol Tartrate (Lopressor Tab) 25 mg BID PO 07/21/18 21:00 08/20/18 20:59 Pantoprazole Sodium (Protonix Tab) 40 mg DAILY PO 07/22/18 09:00 08/21/18 08:59 Heparin Sodium/ Dextrose 1 ea Q15M N/A 07/21/18 14:32 08/20/18 14:31 Acetaminophen (Tylenol Tab) 650 mg Q4H PRN PO 07/21/18 14:30 08/20/18 14:29 Al Hydrox/Mg Hydrox/Simethicone (Maalox Max Susp) 15 ml Q4H PRN PO 07/21/18 14:30 08/20/18 14:29 Magnesium Hydroxide (Milk Of Magnesia Susp) 30 ml Q12H PRN PO 07/21/18 14:30 08/20/18 14:29 Zolpidem Tartrate (Ambien Tab) 5 mg HSZ PRN PO 07/21/18 14:30 08/20/18 14:29 Ondansetron HCl (Zofran Inj) 4 mg Q6H PRN IV 07/21/18 14:30 08/20/18 14:29 Nitroglycerin (Nitrostat Tab) 0.4 mg UD PRN SL 07/21/18 14:30 08/20/18 14:29 Morphine Sulfate (MoRPHine SULFATE INJ) 2 mg Q30M PRN IV 07/21/18 14:30 08/04/18 14:29 Polyethylene (Miralax Powder Packet) 17 gm DAILY PRN PO 07/21/18 14:30 08/20/18 14:29 Nitroglycerin (Nitroglycerin 2% Oint) 0.5 inch Q6H EXT 07/21/18 17:15 08/20/18 17:14 07/21/18 17:13 0.5 INCH Physical Exam Vital Signs Past 12 Hours Date Time Temp Pulse Resp B/P (MAP) Pulse Ox O2 Delivery O2 Flow Rate FiO2 07/21/18 16:23 36.9 57 24 155/89 (111) 07/21/18 15:34 57 18 140/83 98 Room Air 07/21/18 15:00 98 Room Air 07/21/18 14:36 56 20 150/78 98 Room Air 07/21/18 13:47 52 20 157/74 97 Room Air 07/21/18 12:43 59 20 142/83 97 Room Air 07/21/18 12:08 61 07/21/18 12:04 97 Room Air 07/21/18 12:04 97 Room Air 07/21/18 12:04 37.2 58 16 163/81 97 Room Air Constitutional: General Apperance: heathly-appearing Level of Distress: NAD Psychiatric: Mental Status: active & alert Head: normocephalic Eyes: EOM: EOMI ENMT: normal ENT inspection, hearing grossly normal Neck: supple, no masses Lungs: Respiratory effort: no dyspnea, good air movement Auscultation: breath sounds normal, no wheezing Cardiovascular: Heart Auscultation: RRR, no murmurs, no rubs, no gallops Peripheral Pulses: Bruits: none appreciated Abdomen: Bowel Sounds: normal Inspection & Palpation: soft, no tenderness, guarding & rebound, no masses Musculoskeletal: normal strength (5/5 throughout) Extremities: no edema Neurologic: Cranial Nerves: grossly intact Sensation: grossly intact Data Laboratory Results: Last 24 Hours Test 07/21/18 12:20 07/21/18 16:57 White Blood Count 5.70 K/uL Red Blood Count 4.34 M/uL Hemoglobin 14.9 g/dL Hematocrit 42.6 % Mean Corpuscular Volume 98.2 fL Mean Corpuscular Hemoglobin 34.3 pg Mean Corpuscular Hemoglobin Concent 35.0 g/dl RDW Standard Deviation 44.3 fL RDW Coefficient of Variation 12.4 % Platelet Count 183 K/uL Mean Platelet Volume 9.5 fL Prothrombin Time 10.9 SECONDS Prothromb Time International Ratio 1.0 Activated Partial Thromboplast Time 28.0 SECONDS Partial Thromboplastin Ratio 1.1 Sodium Level 134 mmol/L Potassium Level 3.7 mmol/L Chloride Level 101 mmol/L Carbon Dioxide Level 23 mmol/L Anion Gap 10.0 mmol/L Blood Urea Nitrogen 18 mg/dl Creatinine 1.33 mg/dl Est Creatinine Clear Calc Drug Dose 84.6 ml/min Estimated GFR () 73.3 Estimated GFR (Non- 63.2 BUN/Creatinine Ratio 13.6 Random Glucose 106 mg/dl Calcium Level 9.0 mg/dl Total Bilirubin 0.9 mg/dl Aspartate Amino Transf (AST/SGOT) 155 U/L Alanine Aminotransferase (ALT/SGPT) 149 U/L Alkaline Phosphatase 120 U/L Troponin I 0.270 ng/ml Total Protein 7.7 gm/dl Albumin 3.9 gm/dl Globulin 3.8 gm/dl Albumin/Globulin Ratio 1.0 EKG: Sinus rhythm, no significant abnormality and no acute changes Telemetry reviewed: Sinus rhythm, no abnormality Assessment & Plan 1. Chest discomfort: He has 2 different types of chest discomfort now, when he had yesterday is worrisome in that it was the same for intervention and seemed to resolve with intervention until yesterday. That lasted 15-20 minutes and resolved. He was left with a dull sensation however. He also has a different type of chest discomfort which he calls a spasm, this he has had historically but was not exercise related and is not exercise related now. Former is suspicious for angina, the latter probably is not. It is worrisome that his cardiac enzymes are abnormal in view of his recent intervention and recurrence of symptoms. Since admission his enzymes have had a descending pattern, including his most recent of the 3, suggesting that this did occur some time prior to admission, perhaps yesterday. 2. Elevated liver function tests: His AST, ALT and alkaline phosphatase are all elevated, the AST and ALT are somewhat higher than in the recent past although his ALT was higher in February of this year. He is on atorvastatin 80 mg daily but this does not seem to suggest a trend. We do tentatively have him scheduled for catheterization tomorrow morning at 7: 00. Thank you for allowing me to participate in his care.
[2018-07-21 19:22] VITALS: BP 148/69; PULSE 77; TEMP 36.8; O2SAT 96
[2018-07-21] MEDS: HEPARIN 25,000 UNIT/500ML D5W 500 ML IV SCH ×2 (19:34→23:18)
[2018-07-21] MEDS: METOPROLOL TARTRATE 25 MG TAB PO SCH (20:38)
[2018-07-21] MEDS: ASPIRIN 81 MG ECTAB PO SCH (20:40)
[2018-07-21] MEDS: LISINOPRIL 40 MG TAB PO SCH (20:41)
[2018-07-21 21:02] LABS: PTT PATIENT 65.9 SECONDS (21.0-31.0)
[2018-07-21 23:36] VITALS: BP 134/71; PULSE 59; TEMP 37; O2SAT 97
[2018-07-22] VITALS (12 sets, daily range): BP systolic 97–149; BP diastolic 57–88; PULSE 52–69; TEMP 36.4–36.9; O2SAT 94–98
[2018-07-22 04:15] LABS: HEMATOCRIT 39.4 % (42-52); HEMOGLOBIN 13.9 g/dL (14.0-18.0); MEAN CELL VOLUME 98.3 fL (80-100); MEAN CORPUSCULAR HEMOGLOBIN 34.7 pg (25-34); MEAN CORPUSCULAR HGB CONC 35.3 g/dl (32-36); MEAN PLATELET VOLUME 9.4 fL (7.4-10.4); PLATELET COUNT 155 K/uL (130-400); RED CELL DISTRIBUTION WIDTH CV 12.5 % (11.5-14.5); RED CELL DISTRIBUTION WIDTH SD 44.6 fL (36.4-46.3); WHITE BLOOD COUNT 5.73 K/uL (4.8-10.8)
[2018-07-22 04:33] LABS: CALCIUM 8.4 mg/dl (8.5-10.1); CREATININE 1.07 mg/dl (0.60-1.40); POTASSIUM 3.5 mmol/L (3.5-5.1)
[2018-07-22] MEDS: NITROGLYCERIN 2% OINTMENT 30GM TUBE EXT SCH ×2 (05:15→11:15)
[2018-07-22] MEDS: HEPARIN 25,000 UNIT/500ML D5W 500 ML IV SCH (05:43)
--- NOTE | 2018-07-22 07:02 | Pre Sedation Assessment ---
Pre Sedation Assessment General Date of Sedation: Jul 22, 2018. Vital Signs Past 12 Hours Date Time Temp Pulse Resp B/P (MAP) Pulse Ox O2 Delivery O2 Flow Rate FiO2 07/22/18 03:45 36.9 56 16 97/57 (70) 94 Room Air 07/21/18 23:36 37.0 59 18 134/71 (92) 97 Room Air 07/21/18 23:20 Room Air 07/21/18 19:22 36.8 77 20 148/69 (95) 96 Room Air Review Cardiovascular: regular rate, rhythm Lungs: lungs clear Pre-Sedation Airway Assessment Smoking Status: Former Smoker Oral Cavity: WNL Mallampati Classification: Class II NPO Status Date of Last Intake of Fluids: Jul 21, 2018 Time of Last Intake of Fluids: 19:00 Date of Last Intake of Solids: Jul 21, 2018 Time of Last Intake of Solids: 19:00 Procedure Planning Contraindications for Sedation: None Current Medications Reviewed: Yes Notes The planned sedation has been discussed with the patient. Informed Consent was obtained. I have identified the patient, determined the appropriateness of sedation and have assessed the patient immediately prior to the procedure. All medicine(s) and interventions are by my order.
--- NOTE | 2018-07-22 07:54 | Cardiac Catheterization ---
Procedure Note Procedure Date Jul 22, 2018. Pre-Procedure Diagnosis Angina AUC Score 8 Post-Procedure Diagnosis Severe CAD, Normal Intracardiac Pressures Procedure(s) Performed Coronary Angiography, Left Heart Cath Risk Assessor Dr. Lechuga Sanitation Director(s) Omari Estimated Blood Loss < 25 ml Medication(s) Fentanyl, Heparin, Nicardipine, Versed, Lidocaine 1% Summary of Findings Coronary angiography: 1. Left main coronary artery: The LMCA is without significant CAD. 2. Left anterior descending: The LAD is a large caliber vessel that wraps around the apex. Proximal LAD 10-20% luminal irregularities. Small D1, large D2, small D3. No significant CAD within the diagonal vessels or remainder of the LAD. 3. Circumflex: The circumflex is a large caliber vessel. Proximal circumflex with mild luminal irregularities. Mid circumflex 70-80% stenosis, just before the bifurcation of a large OM1. The circumflex then continues on distally as a small caliber vessel. NAVID 3 flow. Large OM1 without significant CAD. 4. Right coronary artery: The RCA is a large and dominant vessel. Proximal RCA 20%. Mid RCA stent patent. Large PL branch and PDA without significant CAD. Left heart catheterization: 1. Left ventriculography was not performed. 2. Normal LVEDP; 9mmHg. 3. No aortic stenosis. Sedation start time: 7:10 a.m. Sedation end time: 7:30 a.m. Procedural details: 1. Coronary angiography was performed via the right radial artery with 6 [place] diagnostic catheters (JL 3.5 and JR4). No known complication. Impression: 1. Severe CAD involving the circumflex. 2. Mild nonobstructive CAD involving the RCA and LAD. 3. Patent mid RCA stent. 4. No aortic stenosis. 5. Normal LVEDP. Plan: 1. Dr. Bucio of interventional Cardiology was asked to review images and plans on performing PCI of the circumflex. Hemodynamics Rest Ao: 97/56 Final Ao: 115/66 LV: 107/0/9 Recommendations PCI without planned CABG Specimens None Radiation Exposure (mGy) 1131 mGy. Fluoro time 6.7 min. Contrast (mls) 30 ml Optiray. Procedural Complication(s) None Disposition Knuckle Strap Sewer Holding/Recovery (Remains in labor mediator for PCI.) ACC Data Cardiac Status Clinical evaluation leading to the procedure CAD Presntation: Unstable angina Anginal Classification: CCS III Heart Failure: No Cardiogenic Shock w/in 24Hrs: No Cardiac Arrest w/in 24Hrs: No Imaging studies past 6 months: Yes (Prior cardiac cath.) Stress studies past 6 months: Yes Standard Exercise Stress Test: Yes - Positive, Risk/Extent of Ischemia ( Intermediate) Stress Echocardiogram: No Stress Testing w/SPECT MPI: No Cardiac CTA: No Coronary Anatomy Dominant: Right Left Main (% Stenosis): Normal LAD (% Stenosis): Proximal (10-20%) D1 (% Stenosis): Normal D2 (% Stenosis): Normal D3 (% Stenosis): Normal Circumflex (% Stenosis): Mid (70-80%) OM1 (% Stenosis): Normal RCA (% Stenosis): Proximal (20%), Mid (mid RCA stent is patent) R PDA (% Stenosis): Normal R PL1 (% Stenosis): Normal Left Ventricular Angiography EF (%): n/a Diagnostic Physician's Name: Bakari Lechuga MD Status: Elective Closure Device Percutaneous Entry Location: Radial Closure Device: Radial Band Recommendations: PCI without planned CABG
--- NOTE | 2018-07-22 07:57 | Consultant Recommendations ---
Clinical Informatics Director Recommendations Date of Service Jul 22, 2018. Clinical Informatics Director Recommendations ACTIVITY RECOMMENDATIONS: Excess manipulation of the wrist should be avoided for the next 24-48 hours. * No lifting over 2 pounds (approximately a 1/2 gallon of milk) with the utilized arm for 24 hours. * No strenuous activity such as bowling or tennis for 3 days. * Keep the site of the procedure covered with a bandage for 24 hours. *You may shower the day after the procedure. Do not take a tub bath or submerge the puncture site in water for the next 3 days. *Do not operate any motorized equipment for 3 days. SPECIAL CARE INSTRUCTIONS: The site may be slightly bruised and sore following your procedure. Should any of the following occur, contact the Dr. who performed your procedure. 1. Redness/inflammation, swelling, chills, or fever, or colored drainage at procedure site within 3-7 days after your procedure. 2. Coldness, discoloration, ongoing numbness, severe pain, or swelling. Expect mild tingling of hand and tenderness at the puncture site for up to three days. If this persists beyond three days, or other symptoms develop, notify the Dr. who performed your procedure. BLEEDING: If the procedure site on your wrist begins to bleed, do not panic 1. Place 1 or 2 fingers firmly just slightly above the insertion site to stop the bleeding. You may be able to feel your pulse as you hold pressure. 2. Lift your finger after 5 minutes to see if the bleeding has stopped. 3. Once the bleeding has stopped, gently wipe the wrist area clean with a bandage. * If the bleeding from your wrist does not stop after 10 minutes, or if there is a large amount of bleeding or spurting, call 911 (do not drive yourself to the hospital). SKIN IRRITATION: * You may experience some redness and/or swelling in the area where radiation was administered. If any skin irritation occurs, please contact your family physician. FOLLOW UP VISIT: Keep any scheduled doctor appointments.
[2018-07-22] MEDS ORDERED: SODIUM CHLORIDE 0.9% 1000ML 1,000 ML IV SCH (07:58)
--- NOTE | 2018-07-22 08:00 | Post Sedation Assessment ---
Post Sedation Assessment General Date of Sedation Jul 22, 2018. Vital Signs: Vital Signs Past 12 Hours Date Time Temp Pulse Resp B/P (MAP) Pulse Ox O2 Delivery O2 Flow Rate FiO2 07/22/18 03:45 36.9 56 16 97/57 (70) 94 Room Air 07/21/18 23:36 37.0 59 18 134/71 (92) 97 Room Air 07/21/18 23:20 Room Air Post Procedure Recovery Score Activity: (2) Moves 4 extremities * Respiration: (2) Deep breath/cough Circulation: (2) +/-20% PreAnes Value Consciousness: (2) Fully Awake Oxygen Saturation: (1) O2 needed for >90% Discharge Sedation Level of Care: Fast Track Phase II Post Sedation Plan On clinical assessment, the patient appears to have tolerated the sedation without complications. Patient is recovering as anticipated. Patient will continue to be monitored by nursing and may be discharged when sedation discharge criteria are met per below protocol. Upon Completions of procedure and additional 15 minutes continue every 5 minute vital signs and the P.A.R. score; then discharge to a Phase I or Fast Track to Phase II per the following guidelines: * Discharge Patient to appropriate Phase II area if PAR is 8 or greater or return to pre- procedure baseline. The post - procedure orders will be as directed. * If PAR score is less than 8 or not return to pre-procedure baseline then patient will follow Phase I monitoring till PAR is reached for Phase II. The Phase I may be done in procedure room or may call to secure a Phase I area. * If naloxone or flumazenil are used for reversal, hold in Phase I for an additional 60 -120 minutes before discharge to Phase II. Please call the Sedation Physician to re-evaluate and complete post-note for discharge to Phase II area. Do NOT discharge from procedure sedation or Phase 1 until post- sedation evaluation note is complete by procedure /sedation MD Sedation Discharge Instructions to be given to the patient at discharge to home.
--- NOTE | 2018-07-22 08:05 | Cardiac Catheterization ---
Procedure Note Procedure Date Jul 22, 2018. Pre-Procedure Diagnosis Non STEMI AUC Score 8 Post-Procedure Diagnosis Severe CAD, Successful PCI Procedure(s) Performed Drug Eluting Stent Corporate Accountant caleb [employer](s) patrice Estimated Blood Loss 10 Medication(s) Fentanyl, Heparin, Versed, Lidocaine 1% Summary of Findings For full details of patient's coronary angiography please cath report dictated by Dr. Lechuga. Briefly, patient found to have severe single vessel disease including a 80% stenosis involving the mid circumflex. Decision to proceed with PCI. Indication: NSTEMI Access: 6fr right radial artery Catheters: EBU 3.5 guide -- PCI -- Antithrombotic therapy: Heparin, Clopidogrel Procedure: LM cannulated with EBU3.5 guide BMW wire passed across lesion into distal vessel Mid circumflex lesion predilated with 2.0 compliant balloon Dilated lesion stented with 2.75 x 12 [place] SHORTY Stent post-dilated with 2.75 noncompliant balloon IC vasodilators administered for spasm Post procedure NAVID 3 flow, stent well expanded with minimal residual stenosis and no apparent cardiac complications. Arterial Closure: TR band Summary: 1. Successful PCI of mid circumflex with single SHORTY (2.75 x 12 [place]). Recommendations: To PCU for continued monitoring Re-loaded with Clopidogrel 300mg in cathead operator Continue dual-antiplatelet therapy for at least 1 year Continue statin, and ASCVD risk factor modification Consult cardiac Rehab Hemodynamics Rest Ao: 97/57/75 Final Ao: 119/67/90 LV: -- Recommendations PCI without planned CABG Specimens None Radiation Exposure (mGy) 2575 Contrast (mls) 80 opti Fluids (cc crystalloids) 50 Drains none Anesthesia moderate Procedural Complication(s) None Disposition PCU ACC Data Cardiac Status Clinical evaluation leading to the procedure CAD Presntation: Non STEMI Anginal Classification: CCS IV Heart Failure: No, NYHA Class: CCS I Cardiogenic Shock w/in 24Hrs: No Cardiac Arrest w/in 24Hrs: No Imaging studies past 6 months: Yes Stress studies past 6 months: No Diagnostic Physician's Name: Bakari Lechuga MD Status: Elective Closure Device Percutaneous Entry Location: Radial Closure Device: Radial Band Recommendations: PCI without planned CABG PCI Indication: PCI for high risk Non-STEMI Lesion Segment Name: mid circumflex Culprit Artery: Yes Stenosis Prior to Rx (%): 80 Chronic Total Occlusion: No IVUS: No FFR: No Pre-Procedure NAVID Flow: 3 Previously Treated Lesion: No Lesion Complexity: Non-High/Non-C Lesion Length (mm): 8 Thrombus Present: Yes Bifurcation Lesion: Yes Guidewire Across Lesion: Yes Guidewire: Stenosis Post-Procedure (%): 0 Post-Procedure NAVID Flow: 3 Device(s) Deployed: Yes Intraprocedure Events Significant Dissection: No Perforation: No
--- NOTE | 2018-07-22 08:12 | Cardiology Follow-Up ---
Subjective Date of Service: Jul 22, 2018. Pt evaluation today including: conversation w/ patient, conversation w/ family , physical exam, chart review, lab review, review of studies, review of inpatient medication list History of Present Illness He has not had any further angina. He has a right-sided chest discomfort which has been intermittently occurring for years. This has been constant since yesterday. He has describes 3 different types of chest pain. His angina, which is a squeezing sensation substernally, a central chest pressure, and then a right-sided pain. He denies shortness of breath, syncope, near-syncope, palpitations, or edema. He underwent cardiac catheterization earlier today. He was found to have a significant mid circumflex stenosis which underwent PCI. Review of systems: As above. Medications Current Inpatient Medications Medications (Trade) Dose Ordered Sig/Vani Route Start Time Stop Time Status Last Admin Dose Admin Aspirin (Ecotrin Tab) 81 mg DAILY PO 07/22/18 09:00 08/21/18 08:59 07/21/18 20:40 81 MG Atorvastatin Calcium (Lipitor Tab) 80 mg DAILY PO 07/22/18 09:00 08/21/18 08:59 07/21/18 20:41 80 MG Clopidogrel Bisulfate (plAVix TAB) 75 mg DAILY PO 07/22/18 09:00 08/21/18 08:59 Diltiazem HCl (Dilacor Xr Cap) 120 mg DAILY PO 07/22/18 09:00 08/21/18 08:59 Lisinopril (Zestril Tab) 40 mg DAILY PO 07/22/18 09:00 08/21/18 08:59 07/21/18 20:41 40 MG Metoprolol Tartrate (Lopressor Tab) 25 mg BID PO 07/21/18 21:00 08/20/18 20:59 07/21/18 20:38 25 MG Pantoprazole Sodium (Protonix Tab) 40 mg DAILY PO 07/22/18 09:00 08/21/18 08:59 Acetaminophen (Tylenol Tab) 650 mg Q4H PRN PO 07/21/18 14:30 08/20/18 14:29 Al Hydrox/Mg Hydrox/Simethicone (Maalox Max Susp) 15 ml Q4H PRN PO 07/21/18 14:30 08/20/18 14:29 Magnesium Hydroxide (Milk Of Magnesia Susp) 30 ml Q12H PRN PO 07/21/18 14:30 08/20/18 14:29 Zolpidem Tartrate (Ambien Tab) 5 mg HSZ PRN PO 07/21/18 14:30 08/20/18 14:29 Ondansetron HCl (Zofran Inj) 4 mg Q6H PRN IV 07/21/18 14:30 08/20/18 14:29 Nitroglycerin (Nitrostat Tab) 0.4 mg UD PRN SL 07/21/18 14:30 08/20/18 14:29 Morphine Sulfate (MoRPHine SULFATE INJ) 2 mg Q30M PRN IV 07/21/18 14:30 08/04/18 14:29 Polyethylene (Miralax Powder Packet) 17 gm DAILY PRN PO 07/21/18 14:30 08/20/18 14:29 Nitroglycerin (Nitroglycerin 2% Oint) 0.5 inch Q6H EXT 07/21/18 17:15 08/20/18 17:14 07/21/18 22:48 0.5 INCH Heparin Sodium/ Dextrose 500 ml @ 28 mls/hr [id number] IV 07/21/18 19:00 08/20/18 18:59 07/22/18 05:43 28 MLS/HR Objective Vital Signs Past 12 Hours Date Time Temp Pulse Resp B/P (MAP) Pulse Ox O2 Delivery O2 Flow Rate FiO2 07/22/18 03:45 36.9 56 16 97/57 (70) 94 Room Air 07/21/18 23:36 37.0 59 18 134/71 (92) 97 Room Air 07/21/18 23:20 Room Air Last Recorded Weight-Kilograms: 105.000 Intake & Output 07/21/18 07/22/18 07/23/18 08:00 08:00 08:00 Intake Total 896 ml Balance 896 ml Physical Exam Gen.: No acute distress. Alert and oriented. HEENT: Anicteric sclera. Neck: No JVD. Cardiac: Regular rate and rhythm. Normal S1-S2. No murmurs, rubs, or gallops. Pulmonary: Clear to auscultation bilaterally without wheezes, rales, or rhonchi. Abdomen: Soft, nontender, nondistended, with normoactive bowel sounds. No bruits noted. Extremities: 2+ radial pulses bilaterally. No edema or cyanosis. Psychiatric: Affect appears appropriate. Chest: Nontender to palpation. Data Laboratory Results: Last 24 Hours Test 07/21/18 12:20 07/21/18 16:57 07/21/18 20:21 07/21/18 23:02 White Blood Count 5.70 K/uL Red Blood Count 4.34 M/uL Hemoglobin 14.9 g/dL Hematocrit 42.6 % Mean Corpuscular Volume 98.2 fL Mean Corpuscular Hemoglobin 34.3 pg Mean Corpuscular Hemoglobin Concent 35.0 g/dl RDW Standard Deviation 44.3 fL RDW Coefficient of Variation 12.4 % Platelet Count 183 K/uL Mean Platelet Volume 9.5 fL Prothrombin Time 10.9 SECONDS Prothromb Time International Ratio 1.0 Activated Partial Thromboplast Time 28.0 SECONDS 65.9 SECONDS Partial Thromboplastin Ratio 1.1 2.5 Sodium Level 134 mmol/L Potassium Level 3.7 mmol/L Chloride Level 101 mmol/L Carbon Dioxide Level 23 mmol/L Anion Gap 10.0 mmol/L Blood Urea Nitrogen 18 mg/dl Creatinine 1.33 mg/dl Est Creatinine Clear Calc Drug Dose 84.6 ml/min Estimated GFR () 73.3 Estimated GFR (Non- 63.2 BUN/Creatinine Ratio 13.6 Random Glucose 106 mg/dl Calcium Level 9.0 mg/dl Total Bilirubin 0.9 mg/dl Aspartate Amino Transf (AST/SGOT) 155 U/L Alanine Aminotransferase (ALT/SGPT) 149 U/L Alkaline Phosphatase 120 U/L Troponin I 0.270 ng/ml 0.204 ng/ml 0.194 ng/ml Total Protein 7.7 gm/dl Albumin 3.9 gm/dl Globulin 3.8 gm/dl Albumin/Globulin Ratio 1.0 Test 07/22/18 03:57 White Blood Count 5.73 K/uL Red Blood Count 4.01 M/uL Hemoglobin 13.9 g/dL Hematocrit 39.4 % Mean Corpuscular Volume 98.3 fL Mean Corpuscular Hemoglobin 34.7 pg Mean Corpuscular Hemoglobin Concent 35.3 g/dl RDW Standard Deviation 44.6 fL RDW Coefficient of Variation 12.5 % Platelet Count 155 K/uL Mean Platelet Volume 9.4 fL Activated Partial Thromboplast Time 107.0 SECONDS Partial Thromboplastin Ratio 4.1 Sodium Level 139 mmol/L Potassium Level 3.5 mmol/L Chloride Level 104 mmol/L Carbon Dioxide Level 25 mmol/L Anion Gap 10.0 mmol/L Blood Urea Nitrogen 14 mg/dl Creatinine 1.07 mg/dl Est Creatinine Clear Calc Drug Dose 105.2 ml/min Estimated GFR () 95.3 Estimated GFR (Non- 82.2 BUN/Creatinine Ratio 13.0 Random Glucose 103 mg/dl Calcium Level 8.4 mg/dl Magnesium Level 1.9 mg/dl Telemetry personally reviewed: No arrhythmia. Sinus rhythm. ECG personally reviewed 07/21/2018: Sinus bradycardia 57 bpm. Prolonged QT. Prior cardiac catheterization images personally reviewed. Cataract catheterization image from a 2418 reviewed. Mid circumflex severe stenosis which underwent PCI by Dr. Bucio. Otherwise, nonobstructive CAD and LAD and RCA. Assessment and Plan ASSESSMENT/PLAN: 1. Unstable angina: Symptoms concerning for unstable angina especially given elevated troponin which was trending down upon presentation. This likely represents this squeezing sensation which he refers to as prior angina that occurred day prior to presentation. The other chest discomforts are not likely ischemic in nature. He was on heparin drip which cannot be discontinued following PCI. Continue aspirin 81 mg daily indefinitely given prior PCI. Continue Plavix for at least 1 year from today's date as he had another stent deployed. Limited Echocardiogram to evaluate for wall motion abnormality. 2. CAD status post PCI: He now has a circumflex and RCA stent. Mid circumflex stent placed today. Continue aspirin and Plavix as above. Continue beta-kip and MAKI-inhibitor. Continue statin therapy if no contraindication given elevated transaminase levels. 3. Hypertension: Blood pressure has been intermittently hypertensive throughout but was hypotensive this morning. Can further titrate medications if necessary. Otherwise for now, continue current regimen. 4. Dyslipidemia: He does have elevated transaminase levels, which is not new. Given the fact that his AST is now greater than 3 times normal limit, atorvastatin will be replaced with Crestor 20 mg daily. Monitor transaminase levels closely. Consider further evaluation for elevated transaminase levels which appear to be chronic in nature. If able to continue statin therapy, this would be strongly recommended given his CAD. Patient states that he was diagnosed with fatty liver disease, to explain his chronic transaminase elevation. 5. Disposition: If no further acute issues, can likely be discharged tomorrow. Continue cardiac rehab upon discharge. Patient care discussed with the primary hospitalist, Preeti BOLDEN.
[2018-07-22] MEDS: CLOPIDOGREL BISULFATE 75 MG TAB PO SCH (08:17)
[2018-07-22] MEDS: PANTOprazole SOD 40 MG TAB PO SCH (08:18)
[2018-07-22] MEDS: METOPROLOL TARTRATE 25 MG TAB PO SCH ×2 (08:18→20:30)
[2018-07-22] MEDS: DILTIAZEM HCL 120 MG ER CAP PO SCH (08:18)
[2018-07-22] MEDS ORDERED: ATORVASTATIN 40 MG TAB PO SCH (09:00)
--- NOTE | 2018-07-22 10:11 | Hospitalist Progress Note ---
Hospitalist Progress Note Date of Service Jul 22, 2018. (Preeti Bruner CRNP) Subjective Pt evaluation today including: conversation w/ patient, physical exam, chart review, lab review, review of inpatient medication list Voiding: no voiding problems Mr. Calixto is feeling well and anxious to go home. He is post cath with stent this morning. He denies any chest pain or discomfort. ROS Constitutional: no chills, aches, sweats or fever Respiratory: no sob,cough, sputum, or wheezing Cardiac: no chest pain, palpitations, edema, orthopnea or lightheadedness GI: no abdominal pain, nausea, vomiting, diarrhea or constipation : no dysuria or hesitancy Extremities: no joint pain or weakness Skin: no rash All other systems reviewed and negative (Preeti Bruner CRNP) Medications Medications Administered Medications (Trade) Dose Ordered Sig/Vani Route Start Time Stop Time Status Last Admin Dose Admin Sodium Chloride 500 ml @ 999 mls/hr Q31M STAT IV 07/21/18 12:27 07/21/18 12:57 DC 07/21/18 12:42 999 MLS/HR Aspirin (Ecotrin Tab) 81 mg DAILY PO 07/22/18 09:00 08/21/18 08:59 07/21/18 20:40 81 MG Atorvastatin Calcium (Lipitor Tab) 80 mg DAILY PO 07/22/18 09:00 07/22/18 09:00 DC 07/21/18 20:41 80 MG Diltiazem HCl (Dilacor Xr Cap) 120 mg DAILY PO 07/22/18 09:00 08/21/18 08:59 07/22/18 08:18 120 MG Lisinopril (Zestril Tab) 40 mg DAILY PO 07/22/18 09:00 08/21/18 08:59 07/21/18 20:41 40 MG Metoprolol Tartrate (Lopressor Tab) 25 mg BID PO 07/21/18 21:00 08/20/18 20:59 07/22/18 08:18 25 MG Pantoprazole Sodium (Protonix Tab) 40 mg DAILY PO 07/22/18 09:00 08/21/18 08:59 07/22/18 08:18 40 MG Heparin Sodium/ Dextrose (Heparin 25,000 Unit/500ml D5W) 25,000 unit STK-MED ONCE .ROUTE 07/21/18 14:30 07/21/18 14:31 DC 07/21/18 14:33 25,000 UNIT Nitroglycerin (Nitroglycerin 2% Oint) 0.5 inch Q6H EXT 07/21/18 17:15 08/20/18 17:14 07/21/18 22:48 0.5 INCH Heparin Sodium/ Dextrose 500 ml @ 28 mls/hr [id number] IV 07/21/18 19:00 08/20/18 18:59 07/22/18 05:43 28 MLS/HR Sodium Chloride 1,000 ml @ 100 mls/hr Q10H IV 07/22/18 07:58 07/22/18 12:57 07/22/18 08:17 100 MLS/HR (Preeti Bruner .KIMI) Objective Vital Signs Date Time Temp Pulse Resp B/P (MAP) Pulse Ox O2 Delivery O2 Flow Rate FiO2 07/22/18 08:28 Room Air 07/22/18 08:05 68 16 146/88 (107) 96 Room Air 07/22/18 08:00 Room Air 07/22/18 07:56 68 16 147/92 (110) 96 Room Air 07/22/18 03:45 36.9 56 16 97/57 (70) 94 Room Air 07/21/18 23:36 37.0 59 18 134/71 (92) 97 Room Air 07/21/18 23:20 Room Air 07/21/18 19:22 36.8 77 20 148/69 (95) 96 Room Air 07/21/18 16:30 98 Room Air 07/21/18 16:23 36.9 57 24 155/89 (111) 07/21/18 15:34 57 18 140/83 98 Room Air 07/21/18 15:00 98 Room Air 07/21/18 14:36 56 20 150/78 98 Room Air 07/21/18 13:47 52 20 157/74 97 Room Air 07/21/18 12:43 59 20 142/83 97 Room Air 07/21/18 12:08 61 07/21/18 12:04 97 Room Air 07/21/18 12:04 97 Room Air 07/21/18 12:04 37.2 58 16 163/81 97 Room Air (Preeti Bruner CRNP) Physical Exam Notes: General: no distress Eyes: normal inspection, PERLL Respiratory: chest non tender, clear to auscultation, normal breath sounds, no respiratory distress, no accessory muscle use Cardiac: regular rate and rhythm, no rub or gallop, no murmur, no edema, no jvd GI/: active bowel sounds, no abd pain or tenderness, soft, non distended Extremities: normal range of motion, normal strength, non tender Neuro/Psych: alert and oriented x 3, normal mood and affect Skin: normal color, dry, TR band intact, no apparent bleeding (rPeeti Bruner CRNP) Laboratory Results Last 24 Hours Test 07/21/18 12:20 07/21/18 16:57 07/21/18 20:21 07/21/18 23:02 White Blood Count 5.70 K/uL Red Blood Count 4.34 M/uL Hemoglobin 14.9 g/dL Hematocrit 42.6 % Mean Corpuscular Volume 98.2 fL Mean Corpuscular Hemoglobin 34.3 pg Mean Corpuscular Hemoglobin Concent 35.0 g/dl RDW Standard Deviation 44.3 fL RDW Coefficient of Variation 12.4 % Platelet Count 183 K/uL Mean Platelet Volume 9.5 fL Prothrombin Time 10.9 SECONDS Prothromb Time International Ratio 1.0 Activated Partial Thromboplast Time 28.0 SECONDS 65.9 SECONDS Partial Thromboplastin Ratio 1.1 2.5 Sodium Level 134 mmol/L Potassium Level 3.7 mmol/L Chloride Level 101 mmol/L Carbon Dioxide Level 23 mmol/L Anion Gap 10.0 mmol/L Blood Urea Nitrogen 18 mg/dl Creatinine 1.33 mg/dl Est Creatinine Clear Calc Drug Dose 84.6 ml/min Estimated GFR () 73.3 Estimated GFR (Non- 63.2 BUN/Creatinine Ratio 13.6 Random Glucose 106 mg/dl Calcium Level 9.0 mg/dl Total Bilirubin 0.9 mg/dl Aspartate Amino Transf (AST/SGOT) 155 U/L Alanine Aminotransferase (ALT/SGPT) 149 U/L Alkaline Phosphatase 120 U/L Troponin I 0.270 ng/ml 0.204 ng/ml 0.194 ng/ml Total Protein 7.7 gm/dl Albumin 3.9 gm/dl Globulin 3.8 gm/dl Albumin/Globulin Ratio 1.0 Test 07/22/18 03:57 07/22/18 07:08 07/22/18 07:23 White Blood Count 5.73 K/uL Red Blood Count 4.01 M/uL Hemoglobin 13.9 g/dL Hematocrit 39.4 % Mean Corpuscular Volume 98.3 fL Mean Corpuscular Hemoglobin 34.7 pg Mean Corpuscular Hemoglobin Concent 35.3 g/dl RDW Standard Deviation 44.6 fL RDW Coefficient of Variation 12.5 % Platelet Count 155 K/uL Mean Platelet Volume 9.4 fL Activated Partial Thromboplast Time 107.0 SECONDS Partial Thromboplastin Ratio 4.1 Sodium Level 139 mmol/L Potassium Level 3.5 mmol/L Chloride Level 104 mmol/L Carbon Dioxide Level 25 mmol/L Anion Gap 10.0 mmol/L Blood Urea Nitrogen 14 mg/dl Creatinine 1.07 mg/dl Est Creatinine Clear Calc Drug Dose 105.2 ml/min Estimated GFR () 95.3 Estimated GFR (Non- 82.2 BUN/Creatinine Ratio 13.0 Random Glucose 103 mg/dl Calcium Level 8.4 mg/dl Magnesium Level 1.9 mg/dl Kaolin Activated Coagulation Time 153 SECONDS 202 SECONDS (Preeti Bruner CRNP) Assessment and Plan Mr. Calixto is a 47 year old man here for chest pain. CAD/NSTEMI - troponin peaked at 0.27 and trended down, no further chest pain today, no events on monitor - s/p stent to circumflex 07/22 - placed on full-dose Heparin, per discussion with cardiology can be discontinued - ASA, Plavix, Metoprolol. - high dose atorvastatin changed to 20mg Crestor due to liver function HLD, Elevated LFTs, hx fatty liver disease - patient's LFTs had been elevated above normal but now above 3x upper limit, will need to adjust statin. Cardiology changed statin from high dose atorvastatin to 20 mg Crestor. Will trend LFTs, hopefully will trend down and we can keep him on statin. I did caution him to stop drinking given his liver function and history HTN - cont Diltiazem, Metoprolol (Preeti Bruner CRNP) [employer] Physician Supervision Note: I discussed with Preeti Bruner NP and agree with findings and plan as documented in the note. Any exceptions or clarifications are listed here: None Acute NH, patient has known coronary disease with stenting of circumflex. He has elevation of his AST which raises some concern for continued use of statin therapy we will continue high potency statin with cautious surveillance of his AST. Documented By: Lan Laguerre (Lna Laguerre M.D.)
[2018-07-22 12:25] LABS: PTT PATIENT 62.3 SECONDS (21.0-31.0)
[2018-07-22] MEDS ORDERED: NURSING VERBAL MED ORDER ONE (16:30)
--- NOTE | 2018-07-22 17:57 | ECHOCARDIOGRAM REPORT ---
*NOTICE TO RECEIVING [employer] This information is strictly Confidential and protected under [place] law. [place] law prohibits you from making any further disclosure of this information unless further disclosure is expressly permitted by the written consent of the person to whom it pertains or is authorized by law. A general authorization for the release of medical or other information is not sufficient for this purpose. Hospital accepts no responsibility if the information is made available to any other person, INCLUDING THE PATIENT. Interpretation Summary * Name: BETO OLIVERA Study Date: 07/22/2018 10:06 AM BP: 122/76 mmHg * Patient Location: [facility] HR: 61 * : 1970 (M/d/yyyy) Gender: Male Height: 71 in * Age: 47 yrs Ethnicity: [place] Weight: 231 lb * Ordering Physician: Bakari Lechuga MD * Performed By: Eryn Damian RDCS * * Reason For Study: Unstable angina with elevated troponin * BSA: 2.2 m2 * -- Conclusions -- * 1. Normal left ventricular size and systolic function. EF 60-65%. No regional wall motion abnormalities. No left ventricular hypertrophy. No significant diastolic dysfunction. * 2. No significant valvular abnormalities visualized. * 3. Technically difficult study. Procedure Details * A two-dimensional transthoracic echocardiogram, with color flow Doppler was performed. * A two-dimensional transthoracic echocardiogram with M-mode and Doppler was performed. * A two-dimensional transthoracic echocardiogram with pulsed and continuous Doppler was performed. * A two-dimensional transthoracic echocardiogram was performed. Left Ventricle * Normal left ventricular size and systolic function. EF 60-65%. No regional wall motion abnormalities. No left ventricular hypertrophy. No significant diastolic dysfunction. Right Ventricle * The right ventricle is normal in size and function. * The right ventricular systolic function is normal as assessed by tricuspid annular plane systolic excursion (TAPSE) (normal >1.5 cm). Atria * The left atrial size is normal. * Right atrial size is normal. * There is no evidence of atrial septal defect, but resolution does not allow assessment for a patent foramen ovale. Mitral Valve * The mitral valve is grossly normal. * There is no mitral valve stenosis. * There is trace mitral regurgitation. Tricuspid Valve * The tricuspid valve is not well visualized. * There is no tricuspid stenosis. * Significant tricuspid regurgitation is absent. Aortic Valve * The aortic valve is trileaflet. * No hemodynamically significant valvular aortic stenosis. * No aortic regurgitation is present. Pulmonic Valve * The pulmonary valve is inadequately visualized, but the Doppler data is adequate for interpretation. * There is no pulmonic valvular stenosis. * Trace pulmonic valvular regurgitation. Great Vessels * The aortic root is normal size. * Ascending aorta of normal dimension Pericardium/Pleural * There is no pericardial effusion. Great Vessels * IVC not well visualized. MMode 2D Measurements and Calculations IVSd 0.87 cm IVSs 1.4 cm LVIDd 4.6 cm LVIDs 3.0 cm LVPWd 1.0 cm LVPWs 1.9 cm IVS/LVPW 0.85 FS 33.6 % EDV(Teich) 96.4 ml ESV(Teich) 36.2 ml EF(Teich) 62.4 % EDV(cubed) 96.1 ml ESV(cubed) 28.1 ml EF(cubed) 70.7 % % IVS thick 61.8 % % LVPW thick 89.2 % LV mass(C)d 146.2 grams LV mass(C)dI 65.2 grams/m\S\2 LV mass(C)s 193.5 grams LV mass(C)sI 86.3 grams/m\S\2 SV(Teich) 60.2 ml SI(Teich) 26.8 ml/m\S\2 SV(cubed) 68.0 ml SI(cubed) 30.3 ml/m\S\2 Ao root diam 3.5 cm Ao root area 9.8 cm\S\2 ACS 2.2 cm LA dimension 3.5 cm asc Aorta Diam 3.1 cm LA/Ao 0.98 LVOT diam 2.0 cm LVOT area 3.0 cm\S\2 LVAd ap4 28.0 cm\S\2 LVLd ap4 7.4 cm EDV(MOD-sp4) 85.6 ml EDV(sp4-el) 90.0 ml LVAs ap4 14.3 cm\S\2 LVLs ap4 5.7 cm ESV(MOD-sp4) 30.3 ml ESV(sp4-el) 30.5 ml EF(MOD-sp4) 64.6 % EF(sp4-el) 66.2 % LVAd ap2 29.9 cm\S\2 LVLd ap2 7.8 cm EDV(MOD-sp2) 97.1 ml EDV(sp2-el) 97.3 ml LVAs ap2 14.8 cm\S\2 LVLs ap2 5.8 cm ESV(MOD-sp2) 31.2 ml ESV(sp2-el) 32.2 ml EF(MOD-sp2) 67.9 % EF(sp2-el) 66.9 % LVLd %diff 13.3 % EDV(MOD-bp) 107.2 ml LVLs %diff 2.2 % ESV(MOD-bp) 31.1 ml EF(MOD-bp) 71.0 % SV(MOD-sp4) 55.3 ml SI(MOD-sp4) 24.7 ml/m\S\2 SV(MOD-sp2) 65.9 ml SI(MOD-sp2) 29.4 ml/m\S\2 SV(MOD-bp) 76.0 ml SI(MOD-bp) 33.9 ml/m\S\2 SV(sp4-el) 59.6 ml SI(sp4-el) 26.6 ml/m\S\2 SV(sp2-el) 65.1 ml SI(sp2-el) 29.0 ml/m\S\2 Doppler Measurements and Calculations MV E max tim 90.1 cm/sec MV A max tim 69.0 cm/sec MV E/A 1.3 MV dec time 0.25 sec Ao V2 max 130.7 cm/sec Ao max PG 6.8 mmHg Ao max PG (full) 2.6 mmHg RITCHIE(V,A) 2.4 cm\S\2 RITCHIE(V,D) 2.4 cm\S\2 LV V1 max PG 4.2 mmHg LV V1 max 102.5 cm/sec PA V2 max 68.2 cm/sec PA max PG 1.9 mmHg PA acc slope 339.1 cm/sec\S\2 PA acc time 0.16 sec PA pr(Accel) 8.2 mmHg
[2018-07-22] MEDS: ASPIRIN 81 MG ECTAB PO SCH (20:33)
[2018-07-22] MEDS: LISINOPRIL 40 MG TAB PO SCH (20:33)
[2018-07-22] MEDS ORDERED: ROSUVASTATIN CALCIUM 20 MG TAB PO SCH (21:00)
[2018-07-23 02:58] VITALS: BP 107/65; PULSE 56; TEMP 36.6; O2SAT 96
[2018-07-23 06:05] LABS: HEMATOCRIT 40.6 % (42-52); HEMOGLOBIN 13.8 g/dL (14.0-18.0); MEAN CELL VOLUME 100.5 fL (80-100); MEAN CORPUSCULAR HEMOGLOBIN 34.2 pg (25-34); MEAN PLATELET VOLUME 9.7 fL (7.4-10.4); PLATELET COUNT 155 K/uL (130-400); RED CELL DISTRIBUTION WIDTH CV 12.6 % (11.5-14.5); RED CELL DISTRIBUTION WIDTH SD 46.2 fL (36.4-46.3); WHITE BLOOD COUNT 4.29 K/uL (4.8-10.8)
[2018-07-23 06:44] LABS: ALBUMIN 3.4 gm/dl (3.4-5.0); CALCIUM 8.6 mg/dl (8.5-10.1); CREATININE 1.02 mg/dl (0.60-1.40); POTASSIUM 3.7 mmol/L (3.5-5.1); TOTAL PROTEIN 7.1 gm/dl (6.4-8.2)
[2018-07-23 07:26] VITALS: BP 124/74; PULSE 67; TEMP 36.5; O2SAT 97
[2018-07-23] MEDS: CLOPIDOGREL BISULFATE 75 MG TAB PO SCH (08:11)
[2018-07-23] MEDS: METOPROLOL TARTRATE 25 MG TAB PO SCH (08:11)
[2018-07-23] MEDS: DILTIAZEM HCL 120 MG ER CAP PO SCH (08:11)
[2018-07-23] MEDS: PANTOprazole SOD 40 MG TAB PO SCH (08:11)
[2018-07-23 10:29] VITALS: BP 124/74; PULSE 67; TEMP 36.5; O2SAT 97
[2018-07-23] MEDS ORDERED: PANT40TA2 PO (10:56)
[2018-07-23] MEDS ORDERED: CRS20 PO (10:56)
--- NOTE | 2018-07-23 11:04 | Discharge Instructions ---
Discharge Instructions Date of Service Jul 23, 2018. Admission Reason for Admission: Nstemi (Non-St Elevated Myocardial Infarction) Discharge Discharge Diagnosis / Problem: NSTEMI Discharge Goals Goal(s): Improve disease control Activity Recommendations Activity Limitations: resume your previous activity Exercise/Sports Limitations: gradually increase as tolerated . Instructions / Follow-Up Instructions / Follow-Up Please have your blood drawn on Wednesday to recheck your LFTs, results will go to Dr. Verdin and Dr. Akhtar I have changed your GERD medication to pantoprazole instead of omeprazole due to potential drug interaction with clopidogrel. Please follow up with Dr. Akhtar's office concerning further workup for your elevated liver function test Home Care: * Take your medications exactly as directed. Don't skip doses. * Remember that recovery after a heart attack takes time. Plan to rest for at lease 4-8 weeks while you recover. Then return to normal activity when your doctor says it's okay. * Ask your doctor about joining a heart rehabilitation program. * Tell your doctor if you are feeling depressed. Feelings of sadness are common after a heart attack, but it is important that you speak to someone if you are feeling overwhelmed by these feelings. * If you are having chest pain, call 911 for an ambulance. Do NOT drive yourself to the hospital. * Ask your family members to learn CPR. * Learn to take your own blood pressure and pulse. Keep a record of your results. Ask your doctor when you should seek emergency medical attention. He or she will tell you which blood pressure reading is dangerous. Lifestyle Changes: * Maintain a healthy weight. Get help to lose any extra pounds. * Cut back on salt. * Limit canned, dried, packaged, and fast foods. * Don't add salt to your food. * Season foods with herbs instead of salt when you cook. * Break the smoking habit. Enroll in a stop-smoking program to improve your chances of success. * Limit fatty foods. * Ask your doctor about having your lipid levels checked regularly. * Build up your activity according to your doctor's recommendation. * Ask your doctor when it's okay to resume sexual activity. * Tell your doctor about any erectile dysfunction (ED) medication you are taking. Some ED medications are not safe if you take certain heart medications. * Try to manage stress. Follow Up: It is important for you to keep your follow up appointments with your medical provider. ACTIVITY RECOMMENDATIONS: Excess manipulation of the wrist should be avoided for the next 24-48 hours. * No lifting over 2 pounds (approximately a 1/2 gallon of milk) with the utilized arm for 24 hours. * No strenuous activity such as bowling or tennis for 3 days. * Keep the site of the procedure covered with a bandage for 24 hours. *You may shower the day after the procedure. Do not take a tub bath or submerge the puncture site in water for the next 3 days. *Do not operate any motorized equipment for 3 days. SPECIAL CARE INSTRUCTIONS: The site may be slightly bruised and sore following your procedure. Should any of the following occur, contact the Dr. who performed your procedure. 1. Redness/inflammation, swelling, chills, or fever, or colored drainage at procedure site within 3-7 days after your procedure. 2. Coldness, discoloration, ongoing numbness, severe pain, or swelling. Expect mild tingling of hand and tenderness at the puncture site for up to three days. If this persists beyond three days, or other symptoms develop, notify the Dr. who performed your procedure. BLEEDING: If the procedure site on your wrist begins to bleed, do not panic 1. Place 1 or 2 fingers firmly just slightly above the insertion site to stop the bleeding. You may be able to feel your pulse as you hold pressure. 2. Lift your finger after 5 minutes to see if the bleeding has stopped. 3. Once the bleeding has stopped, gently wipe the wrist area clean with a bandage. * If the bleeding from your wrist does not stop after 10 minutes, or if there is a large amount of bleeding or spurting, call 911 (do not drive yourself to the hospital). SKIN IRRITATION: * You may experience some redness and/or swelling in the area where radiation was administered. If any skin irritation occurs, please contact your family physician. FOLLOW UP VISIT: Keep any scheduled doctor appointments. Current Hospital Diet Patient's current hospital diet: AHA Diet (Heart Healthy) Discharge Diet Recommended Diet: AHA Diet (Heart Healthy) Procedures Procedures Performed: Cardiac catheterization with placement of single drug eluting stent to the mid circumflex artery Pending Studies Studies pending at discharge: no Laboratory Results Lipid Panel Test 06/29/18 11:26 Range/Units Triglycerides Level 136 0-150 mg/dl Cholesterol Level 123 0-200 mg/dl HDL Cholesterol 44 mg/dl Cholesterol/HDL Ratio 2.8 LDL Cholesterol, Calculated 52 mg/dl Medical Emergencies . Who to Call and When: Medical Emergencies: If at any time you feel your situation is an emergency, please call 911 immediately. Call 911 immediately or go to your nearest Emergency Room if you experience any of the following: Warning Signs and Symptoms of a Heart Attack * Chest pain that is not relieved by medication * Shortness of breath . Non-Emergent Contact Non-Emergency issues call your: Primary Care Provider, Drum Sprayer Call Non-Emergent contact if: wound has increased drainage, you have any medication questions . . "Provider Documentation" section prepared by Preeti Bruner. . Special Education Director Recommendations Special Education Director Recommendations: ACTIVITY RECOMMENDATIONS: Excess manipulation of the wrist should be avoided for the next 24-48 hours. * No lifting over 2 pounds (approximately a 1/2 gallon of milk) with the utilized arm for 24 hours. * No strenuous activity such as bowling or tennis for 3 days. * Keep the site of the procedure covered with a bandage for 24 hours. *You may shower the day after the procedure. Do not take a tub bath or submerge the puncture site in water for the next 3 days. *Do not operate any motorized equipment for 3 days. SPECIAL CARE INSTRUCTIONS: The site may be slightly bruised and sore following your procedure. Should any of the following occur, contact the Dr. who performed your procedure. 1. Redness/inflammation, swelling, chills, or fever, or colored drainage at procedure site within 3-7 days after your procedure. 2. Coldness, discoloration, ongoing numbness, severe pain, or swelling. Expect mild tingling of hand and tenderness at the puncture site for up to three days. If this persists beyond three days, or other symptoms develop, notify the Dr. who performed your procedure. BLEEDING: If the procedure site on your wrist begins to bleed, do not panic 1. Place 1 or 2 fingers firmly just slightly above the insertion site to stop the bleeding. You may be able to feel your pulse as you hold pressure. 2. Lift your finger after 5 minutes to see if the bleeding has stopped. 3. Once the bleeding has stopped, gently wipe the wrist area clean with a bandage. * If the bleeding from your wrist does not stop after 10 minutes, or if there is a large amount of bleeding or spurting, call 911 (do not drive yourself to the hospital). SKIN IRRITATION: * You may experience some redness and/or swelling in the area where radiation was administered. If any skin irritation occurs, please contact your family physician. FOLLOW UP VISIT: Keep any scheduled doctor appointments. AMI Core Measures Reason no ASA as I/P: Treatment provided - N/A Reason no ASA at D/C: Treatment provided - N/A Reason no statin as I/P: Treatment provided - N/A Reason no statin at D/C: Treatment provided - N/A
--- NOTE | 2018-07-23 11:18 | Cardiology Follow-Up ---
Subjective Subjective Date of Service: Jul 23, 2018. Pt evaluation today including: conversation w/ patient, conversation w/ family , physical exam, chart review, lab review, review of studies, review of inpatient medication list Additional Details: feeling well. no recurrent chest pain. brief episode of atrial tachycardia on telemetry -- largely asymptomatic. no other new complaints. Problem List Medical Problems: (1) Elevated troponin Status: Acute (2) Laceration Status: Acute (3) Precordial chest pain Status: Acute Review of Systems Constitutional: No fever, No weight loss, No weakness Abdomen: No pain, No nausea, No vomiting, No diarrhea, No GI bleeding Male : No urinary frequency, No nocturia more than once/night, No slowing stream, No sexual dysfunction Neurologic: No paralysis, No weakness, No numbness/tingling, No balance problems Heme: No abnormal bleeding/bruising, No clotting problems Endo: No fatigue Skin: No problem reported Objective Vital Signs Last Vital Signs Documentation Date Time Temp Pulse Resp B/P (MAP) Pulse Ox O2 Delivery O2 Flow Rate FiO2 07/23/18 10:29 36.5 67 16 97 Room Air 07/23/18 07:26 124/74 (91) Physical Exam: General Appearance: no apparent distress ENT: hearing grossly normal Neck: no JVD Respiratory/Chest: chest non-tender, lungs clear, normal breath sounds Cardiovascular: regular rate, rhythm, no edema Abdomen: non tender, soft Extremities: normal inspection, no pedal edema, + pertinent finding (right radial artery -- no access site complications. Pulses intact, no ecchymosis/ hematoma. ) Neurologic/Psychiatric: alert, normal mood/affect Skin: normal color, warm/dry Assessment and Plan 1. NSTEMI 2. Multivessel CAD -- post PCI with SHORTY to circumflex. 3. Dyslipidemia 4. Elevated LFTs 5. Atrial tachycardia From a cardiac standpoint OK for discharge today. Continue DAPT with ASA/Clopidogrel. Home on [facility], follow-up LFTs as an outpatient. On AV juanjo agents with atrial tachycardia and largely asymptomatic. Follow-up with Dr. Lechuga in 2-3 weeks. Medications: Current Inpatient Medications Medications (Trade) Dose Ordered Sig/Vani Route Start Time Stop Time Status Last Admin Dose Admin Aspirin (Ecotrin Tab) 81 mg DAILY PO 07/22/18 09:00 9/23/18 08:59 07/22/18 20:33 81 MG Clopidogrel Bisulfate (plAVix TAB) 75 mg DAILY PO 07/22/18 09:00 08/21/18 08:59 07/23/18 08:11 75 MG Diltiazem HCl (Dilacor Xr Cap) 120 mg DAILY PO 07/22/18 09:00 08/21/18 08:59 07/23/18 08:11 120 MG Lisinopril (Zestril Tab) 40 mg DAILY PO 07/22/18 09:00 08/21/18 08:59 07/22/18 20:33 40 MG Metoprolol Tartrate (Lopressor Tab) 25 mg BID PO 07/21/18 21:00 08/20/18 20:59 07/23/18 08:11 25 MG Pantoprazole Sodium (Protonix Tab) 40 mg DAILY PO 07/22/18 09:00 08/21/18 08:59 07/23/18 08:11 40 MG Acetaminophen (Tylenol Tab) 650 mg Q4H PRN PO 07/21/18 14:30 08/20/18 14:29 07/22/18 19:23 650 MG Al Hydrox/Mg Hydrox/Simethicone (Maalox Max Susp) 15 ml Q4H PRN PO 07/21/18 14:30 08/20/18 14:29 Magnesium Hydroxide (Milk Of Magnesia Susp) 30 ml Q12H PRN PO 07/21/18 14:30 08/20/18 14:29 Zolpidem Tartrate (Ambien Tab) 5 mg HSZ PRN PO 07/21/18 14:30 08/20/18 14:29 07/22/18 22:07 5 MG Ondansetron HCl (Zofran Inj) 4 mg Q6H PRN IV 07/21/18 14:30 08/20/18 14:29 Nitroglycerin (Nitrostat Tab) 0.4 mg UD PRN SL 07/21/18 14:30 08/20/18 14:29 Morphine Sulfate (MoRPHine SULFATE INJ) 2 mg Q30M PRN IV 07/21/18 14:30 08/04/18 14:29 Polyethylene (Miralax Powder Packet) 17 gm DAILY PRN PO 07/21/18 14:30 08/20/18 14:29 Rosuvastatin Calcium (Crestor Tab) 20 mg HS PO 07/22/18 21:00 08/21/18 20:59 07/22/18 20:30 20 MG Lab Results: 07/23/18 05:25 07/23/18 05:25 Test 07/22/18 11:48 07/23/18 05:25 Activated Partial Thromboplast Time 62.3 SECONDS (21.0-31.0) Partial Thromboplastin Ratio 2.4 Red Blood Count 4.04 M/uL (4.7-6.1) Mean Corpuscular Volume 100.5 fL (80-100) Mean Corpuscular Hemoglobin 34.2 pg (25-34) Mean Corpuscular Hemoglobin Concent 34.0 g/dl (32-36) RDW Standard Deviation 46.2 fL (36.4-46.3) RDW Coefficient of Variation 12.6 % (11.5-14.5) Mean Platelet Volume 9.7 fL (7.4-10.4) Anion Gap 9.0 mmol/L (3-11) Est Creatinine Clear Calc Drug Dose 108.9 ml/min Estimated GFR () 101.0 Estimated GFR (Non- 87.1 BUN/Creatinine Ratio 10.8 (10-20) Calcium Level 8.6 mg/dl (8.5-10.1) Total Bilirubin 0.8 mg/dl (0.2-1) Direct Bilirubin 0.3 mg/dl (0-0.2) Aspartate Amino Transf (AST/SGOT) 105 U/L (15-37) Alanine Aminotransferase (ALT/SGPT) 114 U/L (12-78) Alkaline Phosphatase 101 U/L (45-117) Total Protein 7.1 gm/dl (6.4-8.2) Albumin 3.4 gm/dl (3.4-5.0)
--- NOTE | 2018-07-23 11:20 | Discharge Summary ---
Discharge Summary Date of Service Jul 23, 2018. Discharge Summary Admission Date: Jul 21, 2018 at 14:23 Discharge Date: Jul 23, 2018 Discharge Disposition: Home Principal Diagnosis: NSTEMI Problems/Secondary Diagnoses: HTN, HLD, fatty liver disease, elevated LFTs Procedures: Procedure Date Jul 22, 2018. Pre-Procedure Diagnosis Non STEMI AUC Score 8 Post-Procedure Diagnosis Severe CAD, Successful PCI Procedure(s) Performed Drug Eluting Stent External Relations Director caleb Business Systems Manager(s) patrice Estimated Blood Loss 10 Medication(s) Fentanyl, Heparin, Versed, Lidocaine 1% Summary of Findings For full details of patient's coronary angiography please cath report dictated by Dr. Lechuga. Briefly, patient found to have severe single vessel disease including a 80% stenosis involving the mid circumflex. Decision to proceed with PCI. Indication: NSTEMI Access: 6fr right radial artery Catheters: EBU 3.5 guide -- PCI -- Antithrombotic therapy: Heparin, Clopidogrel Procedure: LM cannulated with EBU3.5 guide BMW wire passed across lesion into distal vessel Mid circumflex lesion predilated with 2.0 compliant balloon Dilated lesion stented with 2.75 x 12 [place] SHORTY Stent post-dilated with 2.75 noncompliant balloon IC vasodilators administered for spasm Post procedure NAVID 3 flow, stent well expanded with minimal residual stenosis and no apparent cardiac complications. Arterial Closure: TR band Summary: 1. Successful PCI of mid circumflex with single SHORTY (2.75 x 12 [place]). Recommendations: To PCU for continued monitoring Re-loaded with Clopidogrel 300mg in freezer laboratory technician Continue dual-antiplatelet therapy for at least 1 year Continue statin, and ASCVD risk factor modification Consult cardiac Rehab Hemodynamics Rest Ao: 97/57/75 Final Ao: 119/67/90 LV: -- Recommendations PCI without planned CABG Specimens None Radiation Exposure (mGy) 2575 Contrast (mls) 80 opti Fluids (cc crystalloids) 50 Drains none Anesthesia moderate Procedural Complication(s) None Disposition PCU ACC Data Cardiac Status Clinical evaluation leading to the procedure CAD Presntation: Non STEMI Anginal Classification: CCS IV Heart Failure: No, NYHA Class: CCS I Cardiogenic Shock w/in 24Hrs: No Cardiac Arrest w/in 24Hrs: No Imaging studies past 6 months: Yes Stress studies past 6 months: No Diagnostic Physician's Name: Bakari Lechuga MD Status: Elective Closure Device Percutaneous Entry Location: Radial Closure Device: Radial Band Recommendations: PCI without planned CABG PCI Indication: PCI for high risk Non-STEMI Lesion Segment Name: mid circumflex Culprit Artery: Yes Stenosis Prior to Rx (%): 80 Chronic Total Occlusion: No IVUS: No FFR: No Pre-Procedure NAVID Flow: 3 Previously Treated Lesion: No Lesion Complexity: Non-High/Non-C Lesion Length (mm): 8 Thrombus Present: Yes Bifurcation Lesion: Yes Guidewire Across Lesion: Yes Guidewire: Stenosis Post-Procedure (%): 0 Post-Procedure NAVID Flow: 3 Device(s) Deployed: Yes Intraprocedure Events Significant Dissection: No Perforation: No Consultations: Dr. Lechuga and Dr. Bucio from cardiology Medication Reconciliation New Medications: Pantoprazole (Pantoprazole Sodium) 40 Mg Tab 40 MG PO DAILY for 30 Days, #30 TAB Rosuvastatin Calcium (Crestor) 20 Mg Tab 20 MG PO HS for 30 Days, #30 TAB Continued Medications: Aspirin (Aspirin Ec) 81 Mg Tab 81 MG PO DAILY Clopidogrel (Plavix) 75 Mg Tab 75 MG PO DAILY, TAB Diltiazem Hcl (Dilt-Xr) 120 Mg Cap 120 MG PO DAILY Lisinopril (Zestril) 40 Mg Tab 40 MG PO DAILY, TAB Metoprolol Tartrate (Lopressor) (Lopressor) 25 Mg Tab 1 TAB PO BID Multiple Vitamins W/ Minerals (Adult One Daily Gummies) 1 Chw Chw 2 TABS PO DAILY Discontinued Medications: Atorvastatin (Lipitor) 80 Mg Tab 1 TAB PO DAILY Omeprazole (Omeprazole) 20 Mg Tab 20 MG PO DAILY, TAB Discharge Exam ROS Constitutional: no chills, aches, sweats or fever Respiratory: no sob,cough, sputum, or wheezing Cardiac: no chest pain, palpitations, edema, orthopnea or lightheadedness GI: no abdominal pain, nausea, vomiting, diarrhea or constipation : no dysuria or hesitancy Extremities: no joint pain or weakness Skin: no rash All other systems reviewed and negative General: no distress Eyes: normal inspection, PERLL Respiratory: chest non tender, clear to auscultation, normal breath sounds, no respiratory distress, no accessory muscle use Cardiac: regular rate and rhythm, no rub or gallop, no murmur, no edema, no jvd GI/: active bowel sounds, no abd pain or tenderness, soft, non distended Extremities: normal range of motion, normal strength, non tender Neuro/Psych: alert and oriented x 3, normal mood and affect Skin: normal color, dry, radial PCI site dressing dry and intact, no s/s of hematoma or bleeding Hospital Course Mr. Calixto is a 47 y/o man with history of CAD, HTN, HLD. Cath 05/16 resulting in RCA stent. The pt presents with central CP, SOB, nausea and diaphoresis. He reports that he was working the prior day to admission when he developed symptoms. He stopped working and drove home. His symptoms had abated within 15 min, however, he continued to have a poking sensation in his chest overnight. He was attending cardiac rehab prior to arrival when he developed CP again. He was provided with NTG which led to resolution of the pain. An EKG and labs were obtained. The EKG did not show ischemic changes. Initial troponin returned elevated however. The pt reports missing one dose of Plavix 5 days ago and has otherwise had complied with his medications. CAD/NSTEMI - troponin peaked at 0.27 and trended down, no further chest pain post cath, brief tachycardia 07/22 on monitor, Dr. Bucio aware and patient had only a brief feeling of palpitations during the episode and no further issues after that - s/p stent to circumflex 07/22 - full dose heparin drip prior to cath and discontinued after - ASA, Plavix, Metoprolol. - high dose atorvastatin changed to 20mg Crestor due to liver function - liver enzymes back within 3x upper limit of normal, patient can continue the Crestor with repeat labs Wednesday. HLD, Elevated LFTs, hx fatty liver disease - LFTs and statin as above - Cardiology changed statin from high dose atorvastatin to 20 mg Crestor. - I did caution patient to stop drinking given his liver function and history -He has had hepatitis panel drawn by Dr. Akhtar last week which resulted showing negative panels for Hep A,B,C but abnormal DESTINY. I did discuss these results with him and told him to follow up with Dr. Akhtar's office for any further workup. HTN - cont Diltiazem, Metoprolol GERD - change from home omeprazole to Protonix as patient is on Plavix APPLE CHECKER Physician Supervision Note: I discussed with Preeti Guillard APPLE CHECKER and agree with findings and plan as documented in the note. Any exceptions or clarifications are listed here: None follow LFT and follow up with gastroenterology Documented By: Lan Laguerre Total Time Spent: Greater than 30 minutes This includes examination of the patient, discharge planning, medication reconciliation, and communication with other providers. Discharge Instructions Please refer to the electronic Patient Visit Report (Discharge Instructions) for additional information. Follow-Up pcp, cardiology, cardiac rehab next week, schedule with Dr. Akhtar Additional Copies To Wilian Verdin II., DO
== END 2018-07-23 11:54 | disposition home or self-care (01) | DRG 247 ==
LOC: EDBD 12:01 → C.EDB 12:02 → C.2T 14:23 → ENRESERV 15:06
PROVIDERS: ADMIT Internal Medicine; ATTEND Nurse Practitioner Family
PROC: B2111ZZ Fluoroscopy of Multiple Coronary Arteries using Low Osmolar Contrast (ICD-10-PCS; 2018-07-22)
PROC: 4A023N7 Measurement of Cardiac Sampling and Pressure, Left Heart, Percutaneous Approach (ICD-10-PCS; 2018-07-22)
PROC: 027034Z Dilation of Coronary Artery, One Artery with Drug-eluting Intraluminal Device, Percutaneous Approach (ICD-10-PCS; principal; 2018-07-22 06:36)
DX: I21.4 Non-ST elevation (NSTEMI) myocardial infarction (principal); I25.110 Atherosclerotic heart disease of native coronary artery with unstable angina pectoris; I10 Essential (primary) hypertension; Z83.3 Family history of diabetes mellitus; Z82.49 Family history of ischemic heart disease and other diseases of the circulatory system; Z87.891 Personal history of nicotine dependence; Z84.2 Family history of other diseases of the genitourinary system; Z95.5 Presence of coronary angioplasty implant and graft; E78.5 Hyperlipidemia, unspecified; Z88.5 Allergy status to narcotic agent; Z88.0 Allergy status to penicillin; K76.0 Fatty (change of) liver, not elsewhere classified; K21.9 Gastro-esophageal reflux disease without esophagitis

== ENCOUNTER 2019-10-05 13:28 | Inpatient (IN) ==
[2019-10-05] MEDS ORDERED: SODIUM CHLORIDE 0.9% 1000ML 1,000 ML IV SCH (14:15)
[2019-10-05 14:21] LABS: Basophils # (auto) 0.02 K/uL (0-0.2); Basophils % (auto) 0.3 %; Eosinophils # (auto) 0.11 K/uL (0-0.5); Eosinophils % (auto) 1.7 %; Hematocrit (blood only) 40.6 % (42-52); Immature Granulocytes # (auto) 0.01 K/uL (0.00-0.02); Immature Granulocytes % (auto) 0.2 %; Lymphocytes # (auto) 0.76 K/uL (1.2-3.4); Lymphocytes % (auto) 11.7 %; Mean Corpuscular Hemoglobin 35.2 pg (25-34); Mean Corpuscular Hgb Conc 34.5 g/dL (32-36); Mean Platelet Volume 10.7 fL (7.4-10.4); Monocytes # (auto) 1.22 K/uL (0.11-0.59); Monocytes % (auto) 18.8 %; Neutrophils # (auto) 4.37 K/uL (1.4-6.5); Neutrophils % (auto) 67.3 %; Platelet Count 129 K/uL (130-400); RDW Coefficient of Variation 13.1 % (11.5-14.5); RDW Standard Deviation 48.7 fL (36.4-46.3); Red Blood Count 3.98 M/uL (4.7-6.1); White Blood Count 6.49 K/uL (4.8-10.8)
[2019-10-05 15:11] LABS: Albumin Globulin Ratio 0.8 (0.9-2); BUN Creatinine Ratio 6.9 (10-20); Bilirubin,Total 1.3 mg/dl (0.2-1); Creatinine Clr Calc Pharmacy 15.7 ml/min; Est GFR (African American) 10.1; Est GFR (Non-African American) 8.7; Globulin 4.9 gm/dl (2.5-4.0); Magnesium 1.3 mg/dl (1.8-2.4); Potassium 4.3 mmol/L (3.5-5.1); Thyroid Stimulating Hormone 3.9 uIu/ml (0.300-4.500); Total Protein 8.9 gm/dl (6.4-8.2); Troponin I 0.105 ng/ml (0-0.045)
[2019-10-05] MEDS ORDERED: cefTRIAXone SODIUM 2,000 MG/70 ML BAG IV STA (15:16)
[2019-10-05 15:18] LABS: Appearance Urine Clear (Clear); Bilirubin Urine Negative (Negative); Blood Urine 3+ (Negative); Color Urine Yellow; Epithelial Cell Urine Auto >30 /lpf (0-5); Glucose Urine UA Trace (Negative); Ketones Urine Negative (Negative); Leukocyte Esterase Urine Negative (Negative); Nitrite Urine Negative (Negative); Protein Urine 2+ (Negative); RBC Urine Automated 0-4 /hpf (0-4); Specific Gravity Urine 1.013 (1.000-1.030); Urobilinogen Urine Negative (Negative); pH Urine 6.5 (4.5-7.5)
[2019-10-05 15:30] LABS: Bacteria Urine Automated 1+ (Negative)
[2019-10-05] MEDS: MAGNESIUM SULFATE / D5W 1 GM/100 ML BAG IV SCH ×2 (15:47→16:49)
[2019-10-05 15:50] LABS: Base Excess VBG -3.8 mEq/L; pH VBG 7.44 (7.36-7.41)
[2019-10-05] MEDS ORDERED: DAPTOmycin 750 MG in SYRINGE 0 ML IV ONE (16:00)
[2019-10-05] MEDS ORDERED: AZTREONAM 2,000 MG in DEXTROSE 5% 100 ML IV ONE (16:15)
--- NOTE | 2019-10-05 16:35 | XRay Report ---
SINGLE VIEW CHEST CLINICAL HISTORY: Generalized weakness. FINDINGS: 2 AP, portable, upright chest radiographs are compared to study dated 07/21/2018. The examin ation is degraded by portable technique and patient rotation. The heart is top normal for projection. The mediastinal contour is within normal limits. There is no airspace consolidation or large pleural effusion. No pneumothorax is seen. The bony thorax is grossly intact. IMPRESSION: No acute cardiopulmonary abnormality. Electronically signed by: Jose Hernandez M.D. 10/05/2019 4:33 PM
[2019-10-05] MEDS ORDERED: SODIUM CHLORIDE 0.9% 1000ML 1,000 ML IV ONE (17:08)
--- NOTE | 2019-10-05 17:13 | Emergency Department Note ---
Entered by Rudy Fontenot acting as a scribe for History of Present Illness General Chief complaint: Dehydration Stated complaint: DEHYDRATION Time Seen by Provider: 10/05/19 13:56 Source: patient History of Present Illness Onset (ago): day(s) (yesterday) Location: abdomen Pain Consistency: + intermittent Maximum Pain Intensity: 1 Quality: + other (diarrhea) Associated symptoms: + denies other symptoms (swelling to his anal fissure, vomiting, abdominal pain, fever, eating something abnormal, sore throat) and + other (worsening shakes, mild nose bleed, nausea); no chest pain and no hal rtness of breath The patient is a 48 y/o male who presents to the ED w/ CC of intermittent diarrhea beginning yesterday. The patient states he thinks he caught a bug. He reports he woke yesterday and felt okay. The patient notes his symptoms worsened as the day progressed, and he spent a large amount of time on the toilet with diarrhea. He states he was having diarrhea every 20 minutes yesterday, and then his diarrhea turned to gas. The patient reports his episodes of diarrhea return ed this morning and are about every hour. He notes he has a history of an anal fissure, so it is extremely painful to go to the restroom. The patient states he has also been shaking intermittent for the past week, and his symptoms worsened yesterday. He reports he has also had chills over the past day and is always thirsty. The patient notes he feels as if his lips are very cracked. He states he had nausea this morning that resolved with Zofran. The patient reports a very mild nose bleed that started last night and has continued into today. He notes he has been to four different offices over the past couple weeks. The patient states he was at his PCP for a well check-up, a gastrosurgeon for his anal fissure, a dentist, and a asthma educator for his inflamed liver. He reports a history of fatty liver and was told to stop drinking alcohol. The patient notes he normally drinks three alcoholic drinks on each day of the weekend. He states he does not drink during the week and has not had shakes when he stopped drinking alcohol. The patient reports a history of a heart murmur that supposedly resolved. He notes two months ago he had a heart catheterization and stress test that did not warrant intervention. The patient states last Wednesday he was told his heart murmur returned, and he has not seen his needle loom weaver, Dr. Santiago, yet. He reports a history of two cardiac stent placements, di verticulitis, and heart disease. He states he also takes Plavix and an aspirin daily. The patient denies swelling to his anal fissure, vomiting, abdominal pain, fever, eating something abnormal, shortness of breath, sore throat, and chest pain. Home Medications Home Medications Medication Instructions Recorded Confirmed Type clopidogrel [Plavix] 75 mg PO QAM 10/04/18 10/05/19 History diltiazem HCl 120 mg PO QAM 10/04/18 10/05/19 History multivitamin 1 tab PO QAM 10/04/18 10/05/19 History nitroglycerin [Nitrostat] 0.4 mg SUBLINGUAL UD PRN 10/04/18 10/05/19 History omega 1-xzn-hbe-fish oil [Fish Oil] 1,000 mg PO QAM 10/04/18 10/05/19 History fluticasone propionate 50 1 sprays INTRANASAL BID PRN #1 gm 06/20/19 10/05/19 History mcg/actuation nasal spray,suspension rosuvastatin 20 mg tablet 20 mg PO HS #90 tab 08/22/19 10/05/19 Rx broccoli flower 600 mg PO DAILY 09/14/19 10/05/19 History aspirin 81 mg PO HS 10/05/19 10/05/19 History cholecalciferol (vitamin D3) 50,000 units PO 2XWK 10/05/19 10/05/19 History lidocaine 1 appln TOP UD PRN 10/05/19 10/05/19 History lisinopril 10 mg PO QPM 10/05/19 10/05/19 History pantoprazole 40 mg PO HS 10/05/19 10/05/19 History potassium chloride [Klor-Con M20] 20 meq PO BID 10/05/19 10/05/19 History sertraline [Zoloft] 25 mg PO QAM 10/05/19 10/05/19 History Allergies Allergy/AdvReac Type Severity Reaction Status Date / Time mushroom Allergy Severe ANAPHALYAXSIS, Verified 10/05/19 17:04 HIVES oxycodone Allergy Severe rash Verified 10/05/19 17:04 swelling, anaphylaxis Penicillins Allergy Severe Hives, Verified 10/05/19 19:08 swelling hydrocodone Allergy Intermediate SWELLING, Verified 10/05/19 17:04 HIVES codeine Allergy MO Hives, Verified 10/05/19 17:04 swelling Past Med/Surg History Medical History Asthma MILD - NO INHALERS Bronchitis H/O Degenerative disc disease Depression NO MEDICATIONS CURRENTLY Diverticular disease Fatty liver GERD (gastroesophageal reflux disease) H/O esophageal spasm TAKES CARDIZEM H/O mitral valve prolapse HAS "GONE AWAY IN THE LAST 20 YEARS" Hemorrhoid Hypertension Myocardial Infarction Osteoarthritis Sleep apnea RECENT DIAGNOSIS -- NO MACHINE YET (CPAP) Surgical History History of cardiac cath MAY & JUNE 2018 AT [facility] JUN 2019 AT [facility] History of colonoscopy Done withing the last year. History of esophagogastroduodenoscopy (EGD) History of heart valve replacement X2 STENTS (MAY AND JUNE 2018) AT [facility] Family History Grandfather Family history of esophageal cancer Mother Myocardial infarction Father Myocardial infarction Grandfather (Maternal) Prostate cancer Other Colon cancer Social History Preferred Language: Spanish Communication Ability: Effective Visual Impairment: No Limitations 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: Normal Sap Project Manager Required: No Beliefs That Will Affect Care: None marital status: Current Living Situation: Spouse current occupational status: employed Feels Safe at Home: Yes Smoking Status: Former smoker Tobacco Type: cigarettes ; Age Quit Using Tobacco: 44 ; packs per day: 1 ; Second Hand Exposure: No ; Hx Alcohol Use: Yes Alcohol type: hard liquor Alcohol Intake Frequency: Weekly Alcohol Intake Frequency Comment: 2-3 week Hx Substance Use: No Dental Care, Regularly: Yes Physical Activity Frequency: Does not Exercise Review of Systems See HPI for pertinent positives & negatives. and A total of 10 systems reviewed and were otherwise negative Physical Exam Vital Signs Vital Signs - 24 hr 10/05/19 13:32 10/05/19 13:48 10/05/19 13:50 Temperature 36.7 C Temperature Source Oral Sepsis Recent Fever Within 48 Hours No Sepsis Action Taken by Nursing No Action Required Pulse Rate 93 H 74 69 Pulse Rate from SpO2 Sensor 73 70 Respiratory Rate 16 20 21 Blood Pressure 150/75 H 148/66 H Blood Pressure Mean 100 93 Pulse Oximetry 96 97 95 Oxygen Delivery Method Room Air 10/05/19 14:00 10/05/19 14:01 10/05/19 14:22 Temperature Temperature Source Sepsis Recent Fever Within 48 Hours Sepsis Action Taken by Nursing Pulse Rate 90 87 75 Pulse Rate from SpO2 Sensor 91 H 88 Respiratory Rate 18 15 18 Blood Pressure 119/93 119/93 Blood Pressure Mean 101 101 Pulse Oximetry 97 96 Oxygen Delivery Method 10/05/19 14:30 10/05/19 15:03 10/05/19 15:30 Temperature Temperature Source Sepsis Recent Fever Within 48 Hours Sepsis Action Taken by Nursing Pulse Rate 71 98 H 78 Pulse Rate from SpO2 Sensor 79 Respiratory Rate 22 23 Blood Pressure 156/68 H Blood Pressure Mean 97 Pulse Oximetry 96 Oxygen Delivery Method 10/05/19 16:00 10/05/19 16:01 10/05/19 16:30 Temperature Temperature Source Sepsis Recent Fever Within 48 Hours Sepsis Action Taken by Nursing Pulse Rate 83 76 72 Pulse Rate from SpO2 Sensor 83 78 69 Respiratory Rate 20 17 22 Blood Pressure 155/75 H 131/64 Blood Pressure Mean 101 86 Pulse Oximetry 95 96 96 Oxygen Delivery Method 10/05/19 16:31 Temperature Temperature Source Sepsis Recent Fever Within 48 Hours Sepsis Action Taken by Nursing Pulse Rate 74 Pulse Rate from SpO2 Sensor 73 Respiratory Rate 18 Blood Pressure Blood Pressure Mean Pulse Oximetry 97 Oxygen Delivery Method GENERAL: Patient is in no acute distress. HEENT: No acute trauma, normocephalic atraumatic, mucous membranes moist, no nasal congestion, no scleral icterus. NECK: No stridor, no adenopathy, no meningismus, trachea is midline. LUNGS: Clear to auscultation bilaterally, no wheeze, no rhonchi, breath sounds equal. HEART: 4/6 systolic murmur, regular rate and rhythm. ABDOMEN: Soft, nontender, bowel sounds positive, no hernias, no peritonitis. RECTAL: No evidence for perirectal abscess clinically. No bleeding. EXTREMITIES: No cyanosis or edema, full range of motion of all the joints without pain or difficulty, no signs for acute trauma. NEUROLOGIC: Oriented x 3, no acute motor or sensory deficits, no focal weakness. Extremity tremor noted. SKIN: No rash, no jaundice, no diaphoresis. Course 1359: Past medical records reviewed. The patient was evaluated in room C04. A complete history and physical exam was performed. 1409: I discussed the patient's case with Dr. Santiago, Cardiology. He recommends the patient have an echocardiogram, and he will read it. 1522: Upon reevaluation, the patient is resting comfortably. I discussed laboratory and radiographic results with him. He verbalized agreement of the treatment plan. The patient will be evaluated for further management and care. 1526: I discussed the patient's case with Dr. Gallegos, [facility] Nephrology. She recommends a renal ultrasound, and she will evaluate the patient tomorrow. She notes a hospitalist evaluation and ensuring the patient is well hydrated. 1534: I reviewed the patient's case with Dr. Drake, [facility] Hospitalist. He will evaluate the patient for further management. 1622: I spoke with Dr. Santiago again. He notes there is no obvious vegetation to suspect endocarditis, and he will follow-up with the patient in the hospital. Administered Medications Heparin Sodium (Porcine) (Heparin Sodium (Porcine)) 5,000 units SQ Q12 SARA Stop: 11/04/19 20:59 Last Admin: 10/05/19 21:02 Dose: Not Given Documented by: [id number] Rosuvastatin Calcium (Crestor) 20 mg PO HS SARA Stop: 11/04/19 20:59 Last Admin: 10/05/19 21:01 Dose: 20 mg Documented by: [id number] Discontinued Medications Sodium Chloride (Nss 1000ml) 1,000 mls @ 999 mls/hr IV .Q1H1M SARA Stop: 10/05/19 15:15 Last Infusion: 10/05/19 15:42 Dose: 0 mls/hr Documented by: [id number] Admin: 10/05/19 14:33 Dose: 999 mls/hr Documented by: [id number] Magnesium Sulfate/Dextrose (Magnesium Sulfate / D5w) 1 gm in 100 mls @ 100 mls/hr IV Q1H SARA Stop: 10/05/19 17:29 Last Infusion: 10/05/19 18:00 Dose: 0 mls/hr Documented by: [id number] Admin: 10/05/19 16:49 Dose: 100 mls/hr Documented by: [id number] Infusion: 10/05/19 16:47 Dose: 100 mls/hr Documented by: [id number] Admin: 10/05/19 15:47 Dose: 100 mls/hr Documented by: [id number] Daptomycin 750 mg/ Syringe 15 mls @ 7.5 mls/min IV NOW ONE; Protocol Stop: 10/05/19 16:01 Last Admin: 10/05/19 16:06 Dose: 7.5 mls/min Documented by: [id number] Aztreonam 2,000 mg/ Dextrose 110 mls @ 110 mls/hr IV NOW ONE Stop: 10/05/19 17:14 Last Infusion: 10/05/19 17:06 Dose: 0 mls/hr Documented by: [id number] Admin: 10/05/19 16:06 Dose: 110 mls/hr Documented by: [id number] Sodium Chloride (Nss 1000ml) 1,000 mls @ 999 mls/hr IV .Q1H1M ONE Stop: 10/05/19 18:08 Last Infusion: 10/05/19 18:45 Dose: 0 mls/hr Documented by: [id number] Admin: 10/05/19 17:39 Dose: 999 mls/hr Documented by: [id number] Lactated Ringer's (Lr) 1,000 mls @ 80 mls/hr IV .[id number] SARA Stop: 11/04/19 19:27 Last Infusion: 10/05/19 21:29 Dose: 0 mls/hr Documented by: [id number] Infusion: 10/05/19 21:28 Dose: 0 mls/hr Documented by: [id number] Admin: 10/05/19 20:46 Dose: 80 mls/hr Documented by: [id number] Oxymetazoline HCl (Afrin 0.05%) 1 sprays NA NOW ONE Stop: 10/05/19 20:06 Last Admin: 10/05/19 20:45 Dose: 1 sprays Documented by: [id number] Medical Decision Making Differential Diagnosis Differential diagnosis includes: endocarditis, alcohol withdraw, dehydration, electrolyte imbalance, anemia, [place], viral or food borne illness. Medical Records Attestation: I reviewed the patient's medical records. Home Medications Current Medication List: was personally reviewed by me Laboratory Data Attestation: I reviewed the patient's lab results. Result diagrams: 10/05/19 13:45 10/05/19 13:45 Lab Results 10/05/19 10/05/19 10/05/19 Range/Units 13:45 13:45 13:45 WBC 6.49 (4.8-10.8) K/uL RBC 3.98 L (4.7-6.1) M/uL Hgb 14.0 (14.0-18.0) g/dL Hct 40.6 L (42-52) % MCV 102.0 H (80-100) fL MCH 35.2 H (25-34) pg MCHC 34.5 (32-36) g/dL RDW Std Deviation 48.7 H (36.4-46.3) fL RDW Coeff of Heather 13.1 (11.5-14.5) % Plt Count 129 L (130-400) K/uL MPV 10.7 H (7.4-10.4) fL Immature Gran % (Auto) 0.2 % Neut % (Auto) 67.3 % Lymph % (Auto) 11.7 % [place] % (Auto) 18.8 % Eos % (Auto) 1.7 % Baso % (Auto) 0.3 % Immature Gran # (Auto) 0.01 (0.00-0.02) K/uL Neut # (Auto) 4.37 (1.4-6.5) K/uL Lymph # (Auto) 0.76 L (1.2-3.4) K/uL [place] # (Auto) 1.22 H (0.11-0.59) K/uL Eos # (Auto) 0.11 (0-0.5) K/uL Baso # (Auto) 0.02 (0-0.2) K/uL ESR > 90 H (0-14) mm/hr PT (9.0-12.0) Seconds INR (0.9-1.1) VBG pH (7.36-7.41) VBG pCO2 (38-50) mmHg VBG pO2 mmHg VBG HCO3 mmol/L VBG O2 Saturation % VBG Base Excess mEq/L Barometric Pressure mm/Hg Sodium 134 L (136-145) mmol/L Potassium 4.3 (3.5-5.1) mmol/L Chloride 104 (98-107) mmol/L Carbon Dioxide 16 L (21-32) mmol/L Anion Gap 14.0 H (3-11) BUN 47 H (7-18) mg/dl Creatinine 6.82 H* (0.6-1.4) mg/dl Est Cr Clr Drug Dosing 15.7 ml/min Est GFR ( Amer) 10.1 Est GFR (Non-Af Amer) 8.7 BUN/Creatinine Ratio 6.9 L (10-20) Glucose 116 H (70-99) mg/dl Lactate (0.4-2.0) mmol/L Calcium 10.0 (8.5-10.1) mg/dl Magnesium 1.3 L (1.8-2.4) mg/dl Total Bilirubin 1.3 H (0.2-1) mg/dl AST 80 H (15-37) U/L ALT 62 (12-78) U/L Alkaline Phosphatase 161 H (45-117) U/L Troponin I 0.105 H* (0-0.045) ng/ml Total Protein 8.9 H (6.4-8.2) gm/dl Albumin 4.0 (3.4-5.0) gm/dl Globulin 4.9 H (2.5-4.0) gm/dl Albumin/Globulin Ratio 0.8 L (0.9-2) TSH 3.900 (0.300-4.500) uIu/ml Urine Color Urine Appearance (Clear) Urine pH (4.5-7.5) Ur Specific [place] (1.000-1.030) Urine Protein (Negative) Urine Glucose (UA) (Negative) Urine Ketones (Negative) Urine Blood (Negative) Urine Nitrite (Negative) Urine Bilirubin (Negative) Urine Urobilinogen (Negative) Ur Leukocyte Esterase (Negative) Urine WBC (Auto) (0-5) /hpf Urine RBC (Auto) (0-4) /hpf U Hyaline Cast (Auto) (0-5) /lpf U Epithel Cells (Auto) (0-5) /lpf Urine Bacteria (Auto) (Negative) Ur Renal Epithelial Cell Granular Casts (0) /lpf 10/05/19 10/05/19 10/05/19 Range/Units 13:45 13:45 14:20 WBC (4.8-10.8) K/uL RBC (4.7-6.1) M/uL Hgb (14.0-18.0) g/dL Hct (42-52) % MCV (80-100) fL MCH (25-34) pg MCHC (32-36) g/dL RDW Std Deviation (36.4-46.3) fL RDW Coeff of Heather (11.5-14.5) % Plt Count (130-400) K/uL MPV (7.4-10.4) fL Immature Gran % (Auto) % Neut % (Auto) % Lymph % (Auto) % [place] % (Auto) % Eos % (Auto) % Baso % (Auto) % Immature Gran # (Auto) (0.00-0.02) K/uL Neut # (Auto) (1.4-6.5) K/uL Lymph # (Auto) (1.2-3.4) K/uL [place] # (Auto) (0.11-0.59) K/uL Eos # (Auto) (0-0.5) K/uL Baso # (Auto) (0-0.2) K/uL ESR (0-14) mm/hr PT 11.9 (9.0-12.0) Seconds INR 1.2 H (0.9-1.1) VBG pH (7.36-7.41) VBG pCO2 (38-50) mmHg VBG pO2 mmHg VBG HCO3 mmol/L VBG O2 Saturation % VBG Base Excess mEq/L Barometric Pressure mm/Hg Sodium (136-145) mmol/L Potassium (3.5-5.1) mmol/L Chloride (98-107) mmol/L Carbon Dioxide (21-32) mmol/L Anion Gap (3-11) BUN (7-18) mg/dl Creatinine (0.6-1.4) mg/dl Est Cr Clr Drug Dosing ml/min Est GFR ( Amer) Est GFR (Non-Af Amer) BUN/Creatinine Ratio (10-20) Glucose (70-99) mg/dl Lactate 1.5 (0.4-2.0) mmol/L Calcium (8.5-10.1) mg/dl Magnesium (1.8-2.4) mg/dl Total Bilirubin (0.2-1) mg/dl AST (15-37) U/L ALT (12-78) U/L Alkaline Phosphatase (45-117) U/L Troponin I Cancelled (0-0.045) ng/ml Total Protein (6.4-8.2) gm/dl Albumin (3.4-5.0) gm/dl Globulin (2.5-4.0) gm/dl Albumin/Globulin Ratio (0.9-2) TSH (0.300-4.500) uIu/ml Urine Color Urine Appearance (Clear) Urine pH (4.5-7.5) Ur Specific [place] (1.000-1.030) Urine Protein (Negative) Urine Glucose (UA) (Negative) Urine Ketones (Negative) Urine Blood (Negative) Urine Nitrite (Negative) Urine Bilirubin (Negative) Urine Urobilinogen (Negative) Ur Leukocyte Esterase (Negative) Urine WBC (Auto) (0-5) /hpf Urine RBC (Auto) (0-4) /hpf U Hyaline Cast (Auto) (0-5) /lpf U Epithel Cells (Auto) (0-5) /lpf Urine Bacteria (Auto) (Negative) Ur Renal Epithelial Cell Granular Casts (0) /lpf 10/05/19 10/05/19 Range/Units 15:08 15:29 WBC (4.8-10.8) K/uL RBC (4.7-6.1) M/uL Hgb (14.0-18.0) g/dL Hct (42-52) % MCV (80-100) fL MCH (25-34) pg MCHC (32-36) g/dL RDW Std Deviation (36.4-46.3) fL RDW Coeff of Heather (11.5-14.5) % Plt Count (130-400) K/uL MPV (7.4-10.4) fL Immature Gran % (Auto) % Neut % (Auto) % Lymph % (Auto) % [place] % (Auto) % Eos % (Auto) % Baso % (Auto) % Immature Gran # (Auto) (0.00-0.02) K/uL Neut # (Auto) (1.4-6.5) K/uL Lymph # (Auto) (1.2-3.4) K/uL [place] # (Auto) (0.11-0.59) K/uL Eos # (Auto) (0-0.5) K/uL Baso # (Auto) (0-0.2) K/uL ESR (0-14) mm/hr PT (9.0-12.0) Seconds INR (0.9-1.1) VBG pH 7.44 H (7.36-7.41) VBG pCO2 28 L (38-50) mmHg VBG pO2 52 mmHg VBG HCO3 19 mmol/L VBG O2 Saturation 87.0 % VBG Base Excess -3.8 mEq/L Barometric Pressure 733.3 mm/Hg Sodium (136-145) mmol/L Potassium (3.5-5.1) mmol/L Chloride (98-107) mmol/L Carbon Dioxide (21-32) mmol/L Anion Gap (3-11) BUN (7-18) mg/dl Creatinine (0.6-1.4) mg/dl Est Cr Clr Drug Dosing ml/min Est GFR ( Amer) Est GFR (Non-Af Amer) BUN/Creatinine Ratio (10-20) Glucose (70-99) mg/dl Lactate (0.4-2.0) mmol/L Calcium (8.5-10.1) mg/dl Magnesium (1.8-2.4) mg/dl Total Bilirubin (0.2-1) mg/dl AST (15-37) U/L ALT (12-78) U/L Alkaline Phosphatase (45-117) U/L Troponin I (0-0.045) ng/ml Total Protein (6.4-8.2) gm/dl Albumin (3.4-5.0) gm/dl Globulin (2.5-4.0) gm/dl Albumin/Globulin Ratio (0.9-2) TSH (0.300-4.500) uIu/ml Urine Color Yellow Urine Appearance Clear (Clear) Urine pH 6.5 (4.5-7.5) Ur Specific [place] 1.013 (1.000-1.030) Urine Protein 2+ H (Negative) Urine Glucose (UA) Trace H (Negative) Urine Ketones Negative (Negative) Urine Blood 3+ H (Negative) Urine Nitrite Negative (Negative) Urine Bilirubin Negative (Negative) Urine Urobilinogen Negative (Negative) Ur Leukocyte Esterase Negative (Negative) Urine WBC (Auto) 1-5 (0-5) /hpf Urine RBC (Auto) 0-4 (0-4) /hpf U Hyaline Cast (Auto) 1-5 (0-5) /lpf U Epithel Cells (Auto) >30 H (0-5) /lpf Urine Bacteria (Auto) 1+ H (Negative) Ur Renal Epithelial Cell Not Reportable Granular Casts 5-10 H (0) /lpf Imaging Data Radiologist's Impression: Radiology results as stated below per my review and the radiologist's interpretation: SINGLE VIEW CHEST CLINICAL HISTORY: Generalized weakness. FINDINGS: 2 AP, portable, upright chest radiographs are compared to study dated 07/21/2018. The examination is degraded by portable technique and patient rotation. The heart is top normal for projection. The mediastinal contour is within normal limits. There is no airspace consolidation or large pleural effusion. No pneumothorax is seen. The bony thorax is grossly intact. IMPRESSION: No acute cardiopulmonary abnormality. Electronically signed by: Jose Hernandez M.D. 10/05/2019 4:33 PM ULTRASOUND KIDNEYS AND BLADDER CLINICAL HISTORY: Elevated serum creatinine. COMPARISON STUDY: Abdominal CT dated 02/17/2019 TECHNIQUE: Real-time, grayscale, and color flow sonography of the kidneys and bladder is performed. Images are reviewed in the transverse and longitudinal planes. FINDINGS: Kidneys: The kidneys are normal in size and echotexture. The right kidney measures 11.8 cm in length and the left kidney measures 1.7 cm in length. There is no hydronephrosis. No shadowing renal calculi are identified. There is no sonographic evidence of contour deforming renal mass lesion. No perinephric fluid is identified. Bladder: The bladder is normal as imaged. Bilateral ureteral jets were seen. Upper abdomen: Survey images of the liver show evidence of steatosis. There is no evidence of abdominal ascites. IMPRESSION: 1. Unremarkable sonographic appearance of the kidneys. 2. The bladder is normal as visualized. 3. Hepatic steatosis. Electronically signed by: Jose Hernandez M.D. 10/05/2019 5:21 PM ECG Data Attestation: I personally reviewed and interpreted this ECG as follows: Indication: + weakness Rate (beats per minute): 68 Rhythm: + normal sinus ECG ST segments: no ST elevation ECG Findings: + Other (LVH, QTc prolonged at 521); no PACs and no PVCs Comparison ECG Date: from (07/21/18) Change: no significant change Blood Pressure Blood Pressure Findings: Elevated blood pressure Blood Pressure Disposition: further management by hospitalist JERED Narrative There is no leukocytosis or concerning anemia. Platelet count slightly low but this has been documented before. Sed rate was quite elevated at over 90, this is concerning for ongoing inflammation/infection. VBG does not show significant acidosis. Renal panel testing shows a lower CO2. The creatinine was quite high at 6.8. Potassium was normal. Lactic acid level was not elevated making sepsis less likely. Magnesium was low at 1.3. There were a few subtle liver enzyme elevations. EKG showed a sinus rhythm with a prolonged QT. The EKG was unchanged compared to previous EKGs. Cardiac enzyme testing x1 does show a mild troponin elevation, the patient has a history of such mild elevations. Urinalysis showed some blood and protein. Some granular casts were seen. Chest film does not show pneumonia or CHF. Renal ultrasound did not show any evidence for hydronephrosis. Blood cultures are pending. Patient presents with diarrhea. Work-up shows evidence for acute renal failure, possibly from the diarrhea and dehydration. Given the strong systolic murmur h eard, endocarditis was a concern. The patient was aggressively managed. He received 2 L of IV saline. He received IV daptomycin and IV aztreonam for the possibility of endocarditis/bacteremia. Patient received IV magnesium. The patient is resting comfortably. He is aware of all his findings. I did speak with cardiology as well as nephrology. Hospitalization was felt warranted. I spoke with case management, the on-call hospitalist has been consulted. Further work-up and care is required. Impression & Plan MAE (acute kidney injury), Acute dehydration, Newly recognized heart murmur, Hypomagnesemia, Diarrhea Discharge Plan Visit Data *Final* Discharge Date/Time: 10/05/19 18:29 Chief Complaint: Dehydration Stated Complaint: DEHYDRATION ED Provider: Jose Perez Discharge Problem: MAE (acute kidney injury), Acute dehydration, Newly recognized heart murmur, Hypomagnesemia, Diarrhea Patient Disposition: Admitted As Inpatient Discharge Instructions Interventions: ED Discharge Assessment Last Done: 10/05/19 18:29 Discharge Problem: Diarrhea Qualifiers: Diarrhea type: unspecified type Qualified Code(s): R19.7 - Diarrhea, unspecified The scribe's documentation has been prepared under my direction and personally reviewed by me in its entirety. I confirm that the note above accurately reflects all work, treatment, procedures, and medical decision making performed by me.
--- NOTE | 2019-10-05 17:23 | Ultrasound Report ---
ULTRASOUND KIDNEYS AND BLADDER CLINICAL HISTORY: Elevated serum creatinine. COMPARISON STUDY: Abdominal CT dated 02/17/2019 TECHNIQUE: Real-time, grayscale, and color flow sonography of the kidneys and bladder is performed. I mages are reviewed in the transverse and longitudinal planes. FINDINGS: Kidneys: The kidneys are normal in size and echotexture. The right kidney measures 11.8 cm in length and the left kidney measures 1.7 cm in length. There is no hydronephrosis. No shadowing renal calculi are identified. There is no sonographic evidence of contour deforming renal mass lesion. No perineph wilfredo fluid is identified. Bladder: The bladder is normal as imaged. Bilateral ureteral jets were seen. Upper abdomen: Survey images of the liver show evidence of steatosis. There is no evidence of abdomin al ascites. IMPRESSION: 1. Unremarkable sonographic appearance of the kidneys. 2. The bladder is normal as visualized. 3. Hepatic steatosis. Electronically signed by: Jose Hernandez M.D. 10/05/2019 5:21 PM
--- NOTE | 2019-10-05 17:30 | History & Physical Report ---
Date of Service October 05, 2019 Assessment & Plan (1) MAE (acute kidney injury): Baseline Cr was 1.0 one month ago. Admission Cr is 6.8 with unclear etiology. Ddx includes pre-renal/ATN from dehydration from his diarrhea, post- renal from unknown obstruction, intrinsic from some other factor (ED considering septic emboli given the new heart murmur.). - Renal ultrasound to look for obstruction - IV fluids - Abx as below - Monitor Cr - Consulted nephrology in the ED (2) Newly recognized heart murmur: Significant systolic ejection murmur noted on exam today. He reports he had a murmur as a child, but this has not been noted on recent cardiology visits. Concern for endocarditis; however, presently has 0 Lezama's criteria. He has no focal sign of infection. He denies high-risk behavior such as IV drug use. No recent dental procedures (last cleaning 6 months ago). Does use suppositories for his anal fissure; however, no pain, redness per ED provider. - Echo - Given daptomycin/aztreoname in the ED - I continued daptomycin; however, unless stat echo shows vegetation, will stop given low concern. (3) Diarrhea: Concern for infectious cause given rapid onset along with systemic symptoms; however, he denies eating anything out of the ordinary. No potlucks, no eating out, nothing different to diet. No one else sick around him. - C. diff, infectious testing - If negative, can treat with Imodium (4) Hypertension: Normal BP in the ED at 130/65. Normally takes - Hold lisinopril - Continue calcium channel kip (5) CAD (coronary artery disease): S/p 2 stents (RCA in 05/2018 & LCx in 06/2018) with Drs. Lechuga and Fortunato. - Continue ASA, Plavix (6) RUSSELL (nonalcoholic steatohepatitis): Significant liver work-up with Dr. Akhtar's office. Biopsy from 09/14/2019 shows likely hypersteatosis with possible early cirrhosis. Liver labs have waxed and waned for patient with AST/ALT as high as 160/145 and as low as 80/60 today. Has plan to see [facility] hepatology late this month. MELD unclear as he does not have coags here today. - Get PT/INR - Trend CMPs - Consult GI (7) Anemia: Hgb has been low-normal in recent draws. However, he has a macrocytosis as well which may be due to alcohol intake vs. B12/folate deficiency. - Monitor hgb - B12/folate in the morning (8) DVT prophylaxis: Heparin 5000 units BID Patient reports he has a DNR/DNI and confirms this with his SO present in the room. 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 Per the patient, he was in his usual state of health until 1pm yesterday when he began to feel dizzy, "punky," and had shaking hands and feet. Around 3pm, he had a large amount of non-bloody, non-tarry watery diarrhea which he reports occurred nearly every 30 minutes almost until midnight. He reports it has tapered off since then, but he is still going almost every hour. He also notes subjective chills, though no measured fever. His significant other in the room notes that he has been more "wheezy" in the last few weeks, though he does not note this. He reports drinking plenty of water and having normal output of light urine. He has not had any dysuria, polyuria, chest pain, abdominal pain, shortness of breath, headache, or other issues. He has an anal fissure with some bleeding, and has been using diltiazem suppositories, but has not noted any new, more significant pain in the rectal area and no major bleeding. Allergies Allergy/AdvReac Type Severity Reaction Status Date / Time mushroom Allergy Severe ANAPHALYAXSIS, Verified 10/05/19 17:04 HIVES oxycodone Allergy Severe rash Verified 10/05/19 17:04 swelling, anaphylaxis Penicillins Allergy Severe Hives, Verified 10/05/19 17:04 swelling hydrocodone Allergy Intermediate SWELLING, Verified 10/05/19 17:04 HIVES codeine Allergy MO Hives, Verified 10/05/19 17:04 swelling Home Medications Home Medications Medication Instructions Recorded Confirmed Type clopidogrel [Plavix] 75 mg PO QAM 10/04/18 10/05/19 History diltiazem HCl 120 mg PO QAM 10/04/18 10/05/19 History multivitamin 1 tab PO QAM 10/04/18 10/05/19 History nitroglycerin [Nitrostat] 0.4 mg SUBLINGUAL UD PRN 10/04/18 10/05/19 History omega 7-zny-dzd-fish oil [Fish Oil] 1,000 mg PO QAM 10/04/18 10/05/19 History fluticasone propionate 50 1 sprays INTRANASAL BID PRN #1 gm 06/20/19 10/05/19 History mcg/actuation nasal spray,suspension rosuvastatin 20 mg tablet 20 mg PO HS #90 tab 08/22/19 10/05/19 Rx broccoli flower 600 mg PO DAILY 09/14/19 10/05/19 History aspirin 81 mg PO HS 10/05/19 10/05/19 History cholecalciferol (vitamin D3) 50,000 units PO 2XWK 10/05/19 10/05/19 History lidocaine 1 appln TOP UD PRN 10/05/19 10/05/19 History lisinopril 10 mg PO QPM 10/05/19 10/05/19 History pantoprazole 40 mg PO HS 10/05/19 10/05/19 History potassium chloride [Klor-Con M20] 20 meq PO BID 10/05/19 10/05/19 History sertraline [Zoloft] 25 mg PO QAM 10/05/19 10/05/19 History Past Med/Surg History Medical History Asthma MILD - NO INHALERS Bronchitis H/O Degenerative disc disease Depression NO MEDICATIONS CURRENTLY Diverticular disease Fatty liver GERD (gastroesophageal reflux disease) H/O esophageal spasm TAKES CARDIZEM H/O mitral valve prolapse HAS "GONE AWAY IN THE LAST 20 YEARS" Hemorrhoid Hypertension Myocardial Infarction Osteoarthritis Sleep apnea RECENT DIAGNOSIS -- NO MACHINE YET (CPAP) Surgical History History of cardiac cath MAY & JUNE [address] [facility] JUN [address] [facility] History of colonoscopy Done withing the last year. History of esophagogastroduodenoscopy (EGD) History of heart valve replacement X2 STENTS (MAY AND JUNE 2018) AT 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 Required: No Beliefs That Will Affect Care: None marital status: Current Living Situation: Spouse current occupational status: employed Feels Safe at Home: Yes Smoking Status: Former smoker Tobacco Type: cigarettes ; Age Quit Using Tobacco: 44 ; packs per day: 1 ; Number of Years Since Quit: 4 ; Second Hand Exposure: No ; Hx Alcohol Use: Yes Alcohol type: hard liquor Alcohol Intake Frequency: Weekly Alcohol Intake Frequency Comment: 2-3 week Hx Substance Use: No Dental Care, Regularly: Yes Physical Activity Frequency: Does not Exercise Review of Systems Review of Systems: All systems reviewed & are unremarkable except as noted in HPI & below Physical Exam Constitutional: WD/WN, vitals as above Eyes: EOM intact bilaterally; no conjunctival abnormality ENMT: external ear and nose normal, oropharynx normal Neck: trachea midline, no thyromegaly normal visual inspection Respiratory: normal respiratory effort, lungs clear to auscultation no respiratory distress Cardiovascular: RRR, no murmur, no edema Gastrointestinal (Abdomen): Inspection/Auscultation: abdomen normal to inspection; abdomen not distended Musculoskeletal: no cyanosis or clubbing, extremities motor strength 5/5 Skin: no rashes, warm and dry Neurologic: moves all extremities and awake Psychiatric: Orientation: alert, oriented to person and cooperative Results & Data Vital Signs (Past 12 Hours) Vital Signs Temp Pulse Resp BP Pulse Ox 10/05/19 16:31 74 18 97 10/05/19 16:30 72 22 131/64 96 10/05/19 16:01 76 17 96 10/05/19 16:00 83 20 155/75 H 95 10/05/19 15:30 78 23 96 10/05/19 15:03 98 H 10/05/19 14:30 71 22 156/68 H 10/05/19 14:22 75 18 119/93 10/05/19 14:01 87 15 96 10/05/19 14:00 90 18 119/93 97 10/05/19 13:50 69 21 95 11/07/19 13:48 74 20 148/66 H 97 10/05/19 13:32 36.7 C 93 H 16 150/75 H 96 Code Status & VTE Plan VTE Prophylaxis Plan VTE Prophylaxis will be ordered: Yes PG Care Time/CCT Total # of Minutes Spent Total Time Spent with Patient: Total time spent is greater than 50% in coordination of care (as documented) at patient's floor/unit and/or counseling patient: (1) Diarrhea Diarrhea type: unspecified type Qualified Code(s): R19.7 - Diarrhea, unspecified
[2019-10-05] MEDS ORDERED: ACETAMINOPHEN 325 MG TAB PO PRN (19:28)
[2019-10-05] MEDS ORDERED: ONDANSETRON INJ 2 MG/ML 2 ML VIAL IV PRN (19:28)
[2019-10-05] MEDS ORDERED: LACTATED RINGER'S 1,000 ML IV SCH (19:28)
[2019-10-05] MEDS ORDERED: DAPTOMYCIN CONSULT ACTIVE PRN (19:34)
[2019-10-05 20:00] LABS: INR 1.2 (0.9-1.1); Prothrombin Time 11.9 Seconds (9.0-12.0)
[2019-10-05] MEDS ORDERED: OXYMETAZOLINE 0.05% 30 ML BTL ONE (20:05)
[2019-10-05] MEDS ORDERED: ROSUVASTATIN CALCIUM 20 MG TAB PO SCH (21:00)
[2019-10-05] MEDS: HEPARIN SOD 5,000 UNIT/0.5 ML VIAL SQ SCH (21:02)
[2019-10-05] MEDS: SODIUM BICARBONATE 8.4% 150 MEQ in DEXTROSE 5% 1,000 ML IV SCH (22:09)
[2019-10-06 06:48] LABS: Hematocrit (blood only) 38.1 % (42-52); Hemoglobin 12.8 g/dL (14.0-18.0); Mean Corpuscular Hemoglobin 34.4 pg (25-34); Mean Corpuscular Hgb Conc 33.6 g/dL (32-36); Mean Corpuscular Volume 102.4 fL (80-100); Mean Platelet Volume 10.7 fL (7.4-10.4); Platelet Count 102 K/uL (130-400); RDW Coefficient of Variation 13.1 % (11.5-14.5); RDW Standard Deviation 48.8 fL (36.4-46.3); Red Blood Count 3.72 M/uL (4.7-6.1); White Blood Count 4.76 K/uL (4.8-10.8)
[2019-10-06 06:57] LABS: INR 1.2 (0.9-1.1); Prothrombin Time 12.1 Seconds (9.0-12.0)
[2019-10-06 07:29] LABS: Albumin Globulin Ratio 0.7 (0.9-2); Albumin Level 3.3 gm/dl (3.4-5.0); BUN Creatinine Ratio 7.7 (10-20); Bilirubin,Total 0.8 mg/dl (0.2-1); Calcium 9.5 mg/dl (8.5-10.1); Est GFR (African American) 13.6; Est GFR (Non-African American) 11.7; Globulin 4.6 gm/dl (2.5-4.0); Magnesium 1.7 mg/dl (1.8-2.4); Phosphorus 4.3 mg/dl (2.5-4.9); Potassium 3.9 mmol/L (3.5-5.1); Total Protein 7.9 gm/dl (6.4-8.2)
[2019-10-06 08:13] LABS: Folate (Folic Acid) 13.53 ng/ml (>5.38)
[2019-10-06] MEDS: SERTRALINE HCL 50 MG TABLET PO SCH (08:18)
[2019-10-06] MEDS: ASPIRIN 81 MG ECTAB PO SCH (08:18)
[2019-10-06] MEDS: CLOPIDOGREL BISULFATE 75 MG TAB PO SCH (08:18)
[2019-10-06] MEDS: dilTIAZem HCL 120 MG CAPCR PO SCH (08:18)
[2019-10-06] MEDS: HEPARIN SOD 5,000 UNIT/0.5 ML VIAL SQ SCH ×2 (08:19→20:26)
--- NOTE | 2019-10-06 08:30 | Nephrology Consultation ---
Date of Consultation October 06, 2019 Assessment & Plan (1) MAE (acute kidney injury): Paddy presented to the hospital with 1 day history of diarrheal illness and found to have acute kidney injury with prior normal kidney function. On admission creatinine was 6.5 with metabolic acidosis, normal potassium. Diarrhea resolved and denies any other systemic symptom. Urinalysis with 2+ proteinuria hematuria. Renal ultrasound was unremarkable for any evidence of post renal obstruction. Currently, blood pressure, volume status acceptable. Denies any uremic symptoms. Acute kidney injury could be secondary to prerenal versus ATN however with hematuria and proteinuria in urinalysis there is definitive concern for acute GN versus acute interstitial nephritis. --continue sodium bicarbonate drip at current dose --24 hour urine for better assessment of proteinuria, ANCA, anti-GBM, DESTINY c omplements C3 and C4 and SPEP and UPEP --there is no acute indication for renal replacement therapy however if renal function continues to worsen or developed electrolyte abnormality may need to consider dialysis. Considering proteinuria hematuria with concern for underlying glomerular pathology, may need renal biopsy for definitive diagnosis and ultimately treatment in case renal function continues to worsen. -- avoid all NSAIDs, hold lisinopril for now. --Discussed in detail with the patient and explained the current status of his kidney function Will follow. Thank you for the consultation, it was a pleasure to see Paddy. History of Present Illness Reason for Consultation: Acute kidney injury Attending Physician: Diann Harvey MD History of Present Illness Paddy Calixto a 48-year-old gentlemen with past medical history significant for hypertension, coronary artery disease admitted to the hospital with gastroenteritis and found to have acute kidney injury. Nephrology consult was requested to manage acute kidney injury. Electronic medical records including labs and imaging are reviewed in detail during patient's visit. Paddy presented to the hospital with 1 day history of of diarrhea and dehydrated at home. He has been urinating normally and has been trying to keep up with fluid intake at home. He has been trying to keep up with fluid intake at home. Did not take any NSAID at home. Did not receive any antibiotics. On admission his creatinine was 6.8, had metabolic acidosis with bicarb 16, potassium normal. Urinalysis showed 2+ proteinuria and 3+ hematuria. Renal ultrasound showed otherwise normal kidney without any hydronephrosis. No known history of chronic kidney disease, had normal renal function on lab done just 2 weeks ago. Admission echo was negative for any endocarditis. No history of autoimmune disorder. No history of diabetes. Ex-smoker, quit smoking 5 years ago after more than 20 years smoking. Drinks alcohol over the weekend. No known family history of chronic kidney disease or end-stage renal disease, both parents at age 50-58. 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 , has grown-up son, lives at home with . Hypertension, seems to be well controlled, was on lisinopril 10 milligrams daily. History of coronary artery disease, had stent times twice before recent cardiac catheterization few months ago was normal. No history of congestive heart failure, had normal EF. Currently he is feeling better, did not have any further episode of diarrhea since he came in. Continues to urinate normally. Never had gross hematuria. Denies shortness of breath or chest pain, denies nausea, abdominal pain. Allergies Allergy/AdvReac Type Severity Reaction Status Date / Time mushroom Allergy Severe ANAPHALYAXSIS, Verified 10/05/19 17:04 HIVES oxycodone Allergy Severe rash Verified 10/05/19 17:04 swelling, anaphylaxis Penicillins Allergy Severe Hives, Verified 10/05/19 19:08 swelling hydrocodone Allergy Intermediate SWELLING, Verified 10/05/19 17:04 HIVES codeine Allergy MO Hives, Verified 10/05/19 17:04 swelling Home Medications Home Medications Medication Instructions Recorded Confirmed Type clopidogrel [Plavix] 75 mg PO QAM 10/04/18 10/05/19 History diltiazem HCl 120 mg PO QAM 10/04/18 10/05/19 History multivitamin 1 tab PO QAM 10/04/18 10/05/19 History nitroglycerin [Nitrostat] 0.4 mg SUBLINGUAL UD PRN 10/04/18 10/05/19 History omega 0-yym-enl-fish oil [Fish Oil] 1,000 mg PO QAM 10/04/18 10/05/19 History fluticasone propionate 50 1 sprays INTRANASAL BID PRN #1 gm 06/20/19 10/05/19 History mcg/actuation nasal spray,suspension rosuvastatin 20 mg tablet 20 mg PO HS #90 tab 08/22/19 10/05/19 Rx broccoli flower 600 mg PO DAILY 09/14/19 10/05/19 History aspirin 81 mg PO HS 10/05/19 10/05/19 History cholecalciferol (vitamin D3) 50,000 units PO 2XWK 10/05/19 10/05/19 History lidocaine 1 appln TOP UD PRN 10/05/19 10/05/19 History lisinopril 10 mg PO QPM 10/05/19 10/05/19 History pantoprazole 40 mg PO HS 10/05/19 10/05/19 History potassium chloride [Klor-Con M20] 20 meq PO BID 10/05/19 10/05/19 History sertraline [Zoloft] 25 mg PO QAM 10/05/19 10/05/19 History Patient History Medical History Asthma MILD - NO INHALERS Bronchitis H/O Degenerative disc disease Depression NO MEDICATIONS CURRENTLY Diverticular disease Fatty liver GERD (gastroesophageal reflux disease) H/O esophageal spasm TAKES CARDIZEM H/O mitral valve prolapse HAS "GONE AWAY IN THE LAST 20 YEARS" Hemorrhoid Hypertension Myocardial Infarction Osteoarthritis Sleep apnea RECENT DIAGNOSIS -- NO MACHINE YET (CPAP) Surgical History History of cardiac cath MAY & JUNE 2018 AT [facility] JUN 2019 AT [facility] History of colonoscopy Done withing the last year. History of esophagogastroduodenoscopy (EGD) History of heart valve replacement X2 STENTS (MAY AND JUNE 2018) AT [facility] Family History Grandfather Family history of esophageal cancer Mother Myocardial infarction Father Myocardial infarction Grandfather (Maternal) Prostate cancer Other Colon cancer Social History Preferred Language: [place] African Communication Ability: Effective Visual Impairment: No Limitations 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: Normal Stove Mounter Required: No Beliefs That Will Affect Care: None marital status: Current Living Situation: Spouse current occupational status: employed Feels Safe at Home: Yes Smoking Status: Former smoker Tobacco Type: cigarettes ; Age Quit Using Tobacco: 44 ; packs per day: 1 ; Second Hand Exposure: No ; Hx Alcohol Use: Yes Alcohol type: beer Alcohol Intake Frequency: Weekly Alcohol Intake Frequency Comment: 2-3 week Hx Substance Use: No Dental Care, Regularly: Yes Physical Activity Frequency: Does not Exercise Review of Systems Review of Systems: All systems reviewed & are unremarkable except as noted in HPI & below Physical Exam Constitutional: WD/WN, vitals as above well developed and well nourished; no acute distress Eyes: PERRL, conjunctivae normal, anicteric sclerae ENMT: external ear and nose normal, oropharynx normal Ears: no hearing impairment Neck: trachea midline Respiratory: normal respiratory effort, lungs clear to auscultation no cough Auscultation: no crackles, no rales and no wheezes Cardiovascular: RRR, no murmur, no edema Gastrointestinal (Abdomen): normal bowel sounds, soft, nontender, no hepatosplenomegaly Percussion/Palpation: abdomen nontender, no guarding and abdomen not rigid Musculoskeletal: Extremities: extremities normal to inspection Gait: normal gait Skin: no rashes, warm and dry Neurologic: moves all extremities and awake Psychiatric: A+Ox3, euthymic affect Results & Data Vital Signs (Past 12 Hours) Vital Signs Temp Pulse Pulse Resp BP Pulse Ox 10/06/19 08:20 64 124/71 10/06/19 07:14 70 10/06/19 06:57 36.6 C 74 18 155/72 H 94 10/06/19 04:00 36.8 C 71 18 111/66 97 10/06/19 00:55 57 L 10/05/19 22:38 66 10/05/19 21:00 36.9 C 16 96 PG Care Time/CCT Total # of Minutes Spent Total Time Spent with Patient: Total time spent is greater than 50% in coordination of care (as documented) at patient's floor/unit and/or counseling patient:
[2019-10-06] MEDS ORDERED: SERTRALINE HCL 50 MG TABLET PO SCH (09:00)
--- NOTE | 2019-10-06 09:12 | Gastrointestinal Consultation ---
Date of Consultation October 06, 2019 Assessment & Plan (1) RUSSELL (nonalcoholic steatohepatitis): Patient has had an extensive liver work-up including autoimmune studies, infectious hepatitis studies, normal HH panel and subsequent hematology eval, & a liver biopsy with fibrosis. Proceed with outpatient hepatology evaluation as already scheduled. I would reinforce the hematology recommendation of alcohol cessation, I would also advise he control underlying risk factors like hyperlipidemia, hypertension, CAD, and weight loss would be recommended to prevent progression to cirrhosis. There is no indication for further inpatient GI intervention at this time. Of note, please remove the diagnosis of hemochromatosis from the chart as he does not have this diagnosis. GI will sign off at this time. Present on Admission?: Yes Supervising Physician Co-Signing Physician Notes I personally evaluated the patient and agree with the findings as documented by Debra Frost, RUSTY Exam: abd: soft, nt, nd, central obesity is noted Impression: he has RUSSELL fibrosis without cirrhosis at this time. I do not think his acute kidney disease is related to his RUSSELL. I spoke with him about treatment options for his RUSSELL including achieving a minimum 10% weight loss in the next 6-12 months, and also regarding possible Bariatric surgery if he has trouble losing the weight with diet and exercise alone. Bariatric surgery has been shown to reverse/improve fibrosis in RUSSELL patients. He is scheduled to see a deputy sheriff civil division at [facility] as an outpatient so he will proceed with that evaluation. He also notes some constipation since being hospitalized, hard stools, in the setting of a healing anal fissure that he was on outpatient therapy for. Recs: --start senna and colace for bowel regimen while inpatient --supportive care --rest of care as per primary team History of Present Illness Reason for Consultation: Fibrosis, RUSSELL Attending Physician: Diann Harvey MD History of Present Illness Patient is a 48 yo male with a PMH of CAD with NSTEMI & PCI, Anemia, MAHAMED, recurrent diverticulitis, GERD, HLD, HTN, & internal hemorrhoids. The patient has intermittent elevation of his LFTs over the past 1+ year. He had an extensive work-up including normal autoimmune & infectious hepatitis studies. He was recently referred to our outpatient office for "hemochromatosis." His testing was negative for hereditary hemochromatosis. He had a liver biopsy in August that indicated fibrosis. He was seen by the hematology clinic at [facility] last week. It was reinforced that he does not have hemochromatosis. He was advised to stop drinking alcohol. He has an upcoming hepatology appointment at [facility]. He is currently hospitalized with unrelated issues. Current LFTs are: AST 73, ALT 52, T bili 0.8, Alk phos 138. Of note, he does see colorectal surgery at [facility] for his recurrent diverticulitis & hemorrhoids. He has required banding in the past due to extensive bleeding on ASA & Plavix. He recently saw Dr. Garcia for an anal fissure and was placed on Diltiazem topical ointment. Allergies Allergy/AdvReac Type Severity Reaction Status Date / Time mushroom Allergy Severe ANAPHALYAXSIS, Verified 10/05/19 17:04 HIVES oxycodone Allergy Severe rash Verified 10/05/19 17:04 swelling, anaphylaxis Penicillins Allergy Severe Hives, Verified 10/05/19 19:08 swelling hydrocodone Allergy Intermediate SWELLING, Verified 10/05/19 17:04 HIVES codeine Allergy MO Hives, Verified 10/05/19 17:04 swelling Home Medications Home Medications Medication Instructions Recorded Confirmed Type clopidogrel [Plavix] 75 mg PO QAM 10/04/18 10/05/19 History diltiazem HCl 120 mg PO QAM 10/04/18 10/05/19 History multivitamin 1 tab PO QAM 10/04/18 10/05/19 History nitroglycerin [Nitrostat] 0.4 mg SUBLINGUAL UD PRN 10/04/18 10/05/19 History omega 3-ojc-pds-fish oil [Fish Oil] 1,000 mg PO QAM 10/04/18 10/05/19 History fluticasone propionate 50 1 sprays INTRANASAL BID PRN #1 gm 06/20/19 10/05/19 History mcg/actuation nasal spray,suspension rosuvastatin 20 mg tablet 20 mg PO HS #90 tab 08/22/19 10/05/19 Rx broccoli flower 600 mg PO DAILY 09/14/19 10/05/19 History aspirin 81 mg PO HS 10/05/19 10/05/19 History cholecalciferol (vitamin D3) 50,000 units PO 2XWK 10/05/19 10/05/19 History lidocaine 1 appln TOP UD PRN 10/05/19 10/05/19 History pantoprazole 40 mg PO HS 10/05/19 10/05/19 History potassium chloride [Klor-Con M20] 20 meq PO BID 10/05/19 10/05/19 History sertraline [Zoloft] 25 mg PO QAM 10/05/19 10/05/19 History Patient History Medical History Asthma MILD - NO INHALERS Bronchitis H/O Degenerative disc disease Depression NO MEDICATIONS CURRENTLY Diverticular disease Fatty liver GERD (gastroesophageal reflux disease) H/O esophageal spasm TAKES CARDIZEM H/O mitral valve prolapse HAS "GONE AWAY IN THE LAST 20 YEARS" Hemorrhoid Hypertension Myocardial Infarction Osteoarthritis Sleep apnea RECENT DIAGNOSIS -- NO MACHINE YET (CPAP) Surgical History History of cardiac cath MAY & JUNE 2018 AT [facility] JUN 2019 AT [facility] History of colonoscopy Done withing the last year. 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 Required: No Beliefs That Will Affect Care: None marital status: Current Living Situation: Spouse current occupational status: employed Feels Safe at Home: Yes Smoking Status: Former smoker Tobacco Type: cigarettes ; Age Quit Using Tobacco: 44 ; packs per day: 1 ; Second Hand Exposure: No ; Hx Alcohol Use: Yes Alcohol type: beer Alcohol Intake Frequency: Weekly Alcohol Intake Frequency Comment: 2-3 week Hx Substance Use: No Dental Care, Regularly: Yes Physical Activity Frequency: Does not Exercise Review of Systems Constitutional: + fatigue Eyes: no acute complaints Ear, Nose, Mouth, Throat: no acute complaints Respiratory: + dyspnea on exertion; no cough and no dyspnea Cardiovascular: no chest pain Gastrointestinal: no abdominal pain Musculoskeletal: no joint pain Integumentary: no rash Neurologic: no abnormal speech Psychiatric: no acute complaints Endocrine: + fatigue Hematologic / Lymphatic: + easy bleeding Physical Exam Constitutional: WD/WN, vitals as above Eyes: PERRL, conjunctivae normal, anicteric sclerae ENMT: external ear and nose normal, oropharynx normal Neck: normal visual inspection Respiratory: normal respiratory effort, lungs clear to auscultation Cardiovascular: Rate/Rhythm: regular rate and regular rhythm Heart Sounds: + murmur Gastrointestinal (Abdomen): normal bowel sounds, soft, nontender, no hepatosplenomegaly Musculoskeletal: Extremities: extremities normal to inspection Skin: no rashes, warm and dry Psychiatric: A+Ox3, euthymic affect Results & Data Vital Signs (Past 12 Hours) Vital Signs Temp Pulse Pulse Resp BP Pulse Ox 10/06/19 08:20 64 124/71 10/06/19 07:14 70 10/06/19 06:57 36.6 C 74 18 155/72 H 94 10/06/19 04:00 36.8 C 71 18 111/66 97 10/06/19 00:55 57 L 10/05/19 22:38 66 PG Care Time/CCT Total # of Minutes Spent Total Time Spent with Patient: Total time spent is greater than 50% in coordination of care (as documented) at patient's floor/unit and/or counseling patient:
[2019-10-06] MEDS ORDERED: LORazepam 1 MG TAB PO PRN (09:27)
[2019-10-06] MEDS: SODIUM BICARBONATE 8.4% 150 MEQ in DEXTROSE 5% 1,000 ML IV SCH (11:19)
--- NOTE | 2019-10-06 11:35 | Hospitalist Progress Note ---
Date of Service October 06, 2019 Assessment & Plan (1) MAE (acute kidney injury): - Presented with Creatinine 6.8 with associated metabolic acidosis; possibly related to prerenal in setting of dehydration/diarrhea vs. ATN vs. acute GN or interstitial nephritis. - U/a positive for +2 protein, +3 blood, +1 bacteria and granular cast cells -- proteinuria and hematuria raise concern for acute GN or acute interstitial nephritis. - 24 hour urine for proteinuria, ANCA, anti-GBM, DESTINY, complements C3 and C4, SPEP/UPEP all pending. - Renal US negative for obstruction. - Creatinine improved over last 24 hours, was 5.33 this morning; monitor levels daily. - Continue sodium bicarb drip at 80 cc/hr. - Holding nephrotoxic meds, including home Lisinopril. - Nephrology following, greatly appreciate input; may ultimately require renal biopsy for definitive diagnosis pending work up. (2) Diarrhea: - May be related to viral gastroenteritis vs. other infectious source. - C. diff and stool cultures pending - has not had a BM since admission. (3) Newly recognized heart murmur: - Systolic ejection murmur noted on exam; did have childhood murmur but has not had any recent cardiology evaluations. - Concern for endocarditis but pt. does deny IV drug abuse, recent dental procedures, has 0 Lezama's Criteria; TTE was negative for vegetation, consider completing REBECA. - Received Dapto/Aztreonam in the ED, will hold further doses. (4) Hypertension: - Continue CCB; holding home ACEI in setting of ARF. (5) HLD (hyperlipidemia): - Holding home statin. (6) CAD (coronary artery disease): - S/p 2 stents (RCA in 05/2018 & LCx in 06/2018) with Drs. Lechuga and Fortunato. - Continue ASA, Plavix as prescribed. Holding home statin. (7) RUSSELL (nonalcoholic steatohepatitis): - S/p biopsy 09/14/19 showed hypersteatosis with possible early cirrhosis and fibrosis; he will be evaluated by hepatology later this month at [facility]. - His LFTs have fluctuated and are currently trending down. - Monitor CMP daily. - Consulted GI, appreciate input -- will sign off, no acute intervention indicated. - Recommend complete cessation of ETOH; control other risk factors, including HLD, HTN, CAD as well to prevent progression of cirrhosis. (8) Anemia: - B12 and Folate levels were WNL; has a macrocytic anemia noted on labs. - Will continue to monitor. (9) Thrombocytopenia: - Baseline plt count ~120 since June 2019. - Will continue to monitor - caution with DVT ppx and ASA/Plavix therapy. (10) Elevated CK: - CK level was 2102; on sodium bicarb drip, consider more aggressive IV fluids if necessary. (11) Epistaxis: - In setting of thrombocytopenia; consider plt transfusion if symptoms persist. - Also has prolonged INR in setting of underlying liver dysfunction -- consider Vit K x 3 doses. - Will continue to monitor; Afrin spray prn for max of 3 days. (12) Anal fissure: - Recently evaluated by Dr. Garcia and placed on Diltiazem topical ointment. - Will continue to monitor. - Of note, pt. also has required banding for hemorrhoids in setting of Plavix/ASA therapy. (13) Depression: - Continue home Zoloft as prescribed. (14) DVT prophylaxis: - Heparin BID; caution in setting of thrombocytopenia. Mag level 1.7 - ordered mag sulfate 1 gm IV. Dispo: Med/surg with tele for evaluation of ARF; nephro following. DNR/DNI - pt. did confirm this with SO present in room on day of admission. Supervising Physician Co-Signing Physician Notes PA Supervision Note: I did not personally see or examine the patient today, but I verified all spicer points of EFRAÍN Bah's assessment and plan with the following exceptions/additions: None Subjective Pt. reports dizziness is now improved. Tremor is present but also improving -- he has a chronic tremor. Is having frequent nosebleeds -- had improvement with Afrin last evening. Nephro and GI following, appreciate input. Review of Systems Review of Systems: All systems reviewed & are unremarkable except as noted in HPI & below Constitutional: no fever, no chills, no fatigue, no weakness and no anorexia Ear, Nose, Mouth, Throat: + epistaxis Respiratory: no cough, no dyspnea, no dyspnea on exertion and no wheezing Cardiovascular: no chest pain, no palpitations and no edema Gastrointestinal: no abdominal pain, no nausea, no vomiting and no constipation Genitourinary: no dysuria, no difficulty urinating, no decreased urination and no hematuria Musculoskeletal: no back pain and no joint pain Integumentary: no non-healing lesions Physical Exam Physical Exam: General: Resting comfortably, was present at bedside. HEENT: NC/AT; PERRLA with EOMI; [place] conjunctiva, MMM. +Epistaxis noted during exam. Neck: Supple and nontender Cardiac: RRR Lungs: CTA bilaterally Abdomen: Bowel normoactive X 4; Nontender to palpation Extremities: Warm. No edema present Neuro: No focal weakness Skin: No rash Results & Data Vital Signs (Past 12 Hours) Vital Signs Temp Pulse Pulse Resp BP Pulse Ox 10/06/19 08:20 64 124/71 10/06/19 07:14 70 10/06/19 06:57 36.6 C 74 18 155/72 H 94 10/06/19 04:00 36.8 C 71 18 111/66 97 10/06/19 00:55 57 L Laboratory Results 10/06/19 10/06/19 10/06/19 Range/Units 08:07 06:24 06:24 WBC (4.8-10.8) K/uL RBC (4.7-6.1) M/uL Hgb (14.0-18.0) g/dL Hct (42-52) % MCV (80-100) fL MCH (25-34) pg MCHC (32-36) g/dL RDW Std Deviation (36.4-46.3) fL RDW Coeff of Heather (11.5-14.5) % Plt Count (130-400) K/uL MPV (7.4-10.4) fL Immature Gran % (Auto) % Neut % (Auto) % Lymph % (Auto) % Hunt % (Auto) % Eos % (Auto) % Baso % (Auto) % Immature Gran # (Auto) (0.00-0.02) K/uL Neut # (Auto) (1.4-6.5) K/uL Lymph # (Auto) (1.2-3.4) K/uL Hunt # (Auto) (0.11-0.59) K/uL Eos # (Auto) (0-0.5) K/uL Baso # (Auto) (0-0.2) K/uL ESR (0-14) mm/hr PT (9.0-12.0) Seconds INR (0.9-1.1) VBG pH (7.36-7.41) VBG pCO2 (38-50) mmHg VBG pO2 mmHg VBG HCO3 mmol/L VBG O2 Saturation % VBG Base Excess mEq/L Barometric Pressure mm/Hg Sodium 138 (136-145) mmol/L Potassium 3.9 (3.5-5.1) mmol/L Chloride 108 H (98-107) mmol/L Carbon Dioxide 20 L (21-32) mmol/L Anion Gap 10.0 (3-11) BUN 41 H (7-18) mg/dl Creatinine 5.33 H* D (0.6-1.4) mg/dl Est Cr Clr Drug Dosing 20.0 ml/min Est GFR ( Amer) 13.6 Est GFR (Non-Af Amer) 11.7 BUN/Creatinine Ratio 7.7 L (10-20) Glucose 104 H (70-99) mg/dl Lactate (0.4-2.0) mmol/L Calcium 9.5 (8.5-10.1) mg/dl Phosphorus 4.3 (2.5-4.9) mg/dl Magnesium 1.7 L (1.8-2.4) mg/dl Total Bilirubin 0.8 D (0.2-1) mg/dl AST 73 H (15-37) U/L ALT 52 (12-78) U/L Alkaline Phosphatase 138 H (45-117) U/L Total Creatine Kinase 2102 H (39-308) U/L Troponin I (0-0.045) ng/ml Total Protein 7.9 (6.4-8.2) gm/dl Total Protein (PEP) Pending Albumin 3.3 L (3.4-5.0) gm/dl Albumin (PEP) Pending Globulin 4.6 H (2.5-4.0) gm/dl Albumin/Globulin Ratio 0.7 L (0.9-2) Yiqol-1-Ksrpqhmrg Pending Clilf-2-Qmlqynpnz Pending Zdtq-5-Erswkscd Pending Paux-5-Dxlimrwc Pending Gamma Globulins Pending Monoclonal Peak 3 Pending Ser Monoclonl Protein Pending Ser Monoclonal Prot 2 Pending PEP Interpretation Pending Vitamin B12 625 (211-911) pg/ml Folate 13.53 (>5.38) ng/ml TSH (0.300-4.500) uIu/ml Urine Color Urine Appearance (Clear) Urine pH (4.5-7.5) Ur Specific [place] (1.000-1.030) Urine Protein (Negative) Urine Glucose (UA) (Negative) Urine Ketones (Negative) Urine Blood (Negative) Urine Nitrite (Negative) Urine Bilirubin (Negative) Urine Urobilinogen (Negative) Ur Leukocyte Esterase (Negative) Urine WBC (Auto) (0-5) /hpf Urine RBC (Auto) (0-4) /hpf U Hyaline Cast (Auto) (0-5) /lpf U Epithel Cells (Auto) (0-5) /lpf Urine Bacteria (Auto) (Negative) Ur Renal Epithelial Cell Granular Casts (0) /lpf Ur Random Creatinine mg/dl Ur Random Sodium mmol/L DESTINY Screen Pending Anti-Proteinase 3 Pending Anti-Myeloperoxidase Pending ANCA Pending Glomerular Base Memb Ab Pending Complement C3 Pending Complement C4 Pending Free [place] LC, Quant Pending Free Lambda LC, Quant Pending Free [place]/Lambda Ratio Pending 10/06/19 10/06/19 10/05/19 Range/Units 06:24 06:24 Unknown WBC 4.76 L (4.8-10.8) K/uL RBC 3.72 L (4.7-6.1) M/uL Hgb 12.8 L (14.0-18.0) g/dL Hct 38.1 L (42-52) % MCV 102.4 H (80-100) fL MCH 34.4 H (25-34) pg MCHC 33.6 (32-36) g/dL RDW Std Deviation 48.8 H (36.4-46.3) fL RDW Coeff of Heather 13.1 (11.5-14.5) % Plt Count 102 L (130-400) K/uL MPV 10.7 H (7.4-10.4) fL Immature Gran % (Auto) % Neut % (Auto) % Lymph % (Auto) % Hunt % (Auto) % Eos % (Auto) % Baso % (Auto) % Immature Gran # (Auto) (0.00-0.02) K/uL Neut # (Auto) (1.4-6.5) K/uL Lymph # (Auto) (1.2-3.4) K/uL Hunt # (Auto) (0.11-0.59) K/uL Eos # (Auto) (0-0.5) K/uL Baso # (Auto) (0-0.2) K/uL ESR (0-14) mm/hr PT 12.1 H (9.0-12.0) Seconds INR 1.2 H (0.9-1.1) VBG pH (7.36-7.41) VBG pCO2 (38-50) mmHg VBG pO2 mmHg VBG HCO3 mmol/L VBG O2 Saturation % VBG Base Excess mEq/L Barometric Pressure mm/Hg Sodium (136-145) mmol/L Potassium (3.5-5.1) mmol/L Chloride (98-107) mmol/L Carbon Dioxide (21-32) mmol/L Anion Gap (3-11) BUN (7-18) mg/dl Creatinine (0.6-1.4) mg/dl Est Cr Clr Drug Dosing ml/min Est GFR ( Amer) Est GFR (Non-Af Amer) BUN/Creatinine Ratio (10-20) Glucose (70-99) mg/dl Lactate (0.4-2.0) mmol/L Calcium (8.5-10.1) mg/dl Phosphorus (2.5-4.9) mg/dl Magnesium (1.8-2.4) mg/dl Total Bilirubin (0.2-1) mg/dl AST (15-37) U/L ALT (12-78) U/L Alkaline Phosphatase (45-117) U/L Total Creatine Kinase (39-308) U/L Troponin I (0-0.045) ng/ml Total Protein (6.4-8.2) gm/dl Total Protein (PEP) Albumin (3.4-5.0) gm/dl Albumin (PEP) Globulin (2.5-4.0) gm/dl Albumin/Globulin Ratio (0.9-2) Axaif-2-Wzzfpmmvl Blejr-1-Hagjggfdg Royv-9-Yxacszuk Uhcl-1-Crwjyeoj Gamma Globulins Monoclonal Peak 3 Ser Monoclonl Protein Ser Monoclonal Prot 2 PEP Interpretation Vitamin B12 (211-911) pg/ml Folate (>5.38) ng/ml TSH (0.300-4.500) uIu/ml Urine Color Urine Appearance (Clear) Urine pH (4.5-7.5) Ur Specific [place] (1.000-1.030) Urine Protein (Negative) Urine Glucose (UA) (Negative) Urine Ketones (Negative) Urine Blood (Negative) Urine Nitrite (Negative) Urine Bilirubin (Negative) Urine Urobilinogen (Negative) Ur Leukocyte Esterase (Negative) Urine WBC (Auto) (0-5) /hpf Urine RBC (Auto) (0-4) /hpf U Hyaline Cast (Auto) (0-5) /lpf U Epithel Cells (Auto) (0-5) /lpf Urine Bacteria (Auto) (Negative) Ur Renal Epithelial Cell Granular Casts (0) /lpf Ur Random Creatinine mg/dl Ur Random Sodium 81 mmol/L DESTINY Screen Anti-Proteinase 3 Anti-Myeloperoxidase ANCA Glomerular Base Memb Ab Complement C3 Complement C4 Free [place] LC, Quant Free Lambda LC, Quant Free [place]/Lambda Ratio 10/05/19 10/05/19 10/05/19 Range/Units Unknown 15:29 15:08 WBC (4.8-10.8) K/uL RBC (4.7-6.1) M/uL Hgb (14.0-18.0) g/dL Hct (42-52) % MCV (80-100) fL MCH (25-34) pg MCHC (32-36) g/dL RDW Std Deviation (36.4-46.3) fL RDW Coeff of Heather (11.5-14.5) % Plt Count (130-400) K/uL MPV (7.4-10.4) fL Immature Gran % (Auto) % Neut % (Auto) % Lymph % (Auto) % Hunt % (Auto) % Eos % (Auto) % Baso % (Auto) % Immature Gran # (Auto) (0.00-0.02) K/uL Neut # (Auto) (1.4-6.5) K/uL Lymph # (Auto) (1.2-3.4) K/uL Hunt # (Auto) (0.11-0.59) K/uL Eos # (Auto) (0-0.5) K/uL Baso # (Auto) (0-0.2) K/uL ESR (0-14) mm/hr PT (9.0-12.0) Seconds INR (0.9-1.1) VBG pH 7.44 H (7.36-7.41) VBG pCO2 28 L (38-50) mmHg VBG pO2 52 mmHg VBG HCO3 19 mmol/L VBG O2 Saturation 87.0 % VBG Base Excess -3.8 mEq/L Barometric Pressure 733.3 mm/Hg Sodium (136-145) mmol/L Potassium (3.5-5.1) mmol/L Chloride (98-107) mmol/L Carbon Dioxide (21-32) mmol/L Anion Gap (3-11) BUN (7-18) mg/dl Creatinine (0.6-1.4) mg/dl Est Cr Clr Drug Dosing ml/min Est GFR ( Amer) Est GFR (Non-Af Amer) BUN/Creatinine Ratio (10-20) Glucose (70-99) mg/dl Lactate (0.4-2.0) mmol/L Calcium (8.5-10.1) mg/dl Phosphorus (2.5-4.9) mg/dl Magnesium (1.8-2.4) mg/dl Total Bilirubin (0.2-1) mg/dl AST (15-37) U/L ALT (12-78) U/L Alkaline Phosphatase (45-117) U/L Total Creatine Kinase (39-308) U/L Troponin I (0-0.045) ng/ml Total Protein (6.4-8.2) gm/dl Total Protein (PEP) Albumin (3.4-5.0) gm/dl Albumin (PEP) Globulin (2.5-4.0) gm/dl Albumin/Globulin Ratio (0.9-2) Wfhtm-6-Dndyoldyp Rewhe-4-Rqrxjeqoc Uozr-6-Ffcauukm Ledo-1-Fhqfpmwr Gamma Globulins Monoclonal Peak 3 Ser Monoclonl Protein Ser Monoclonal Prot 2 PEP Interpretation Vitamin B12 (211-911) pg/ml Folate (>5.38) ng/ml TSH (0.300-4.500) uIu/ml Urine Color Yellow Urine Appearance Clear (Clear) Urine pH 6.5 (4.5-7.5) Ur Specific [place] 1.013 (1.000-1.030) Urine Protein 2+ H (Negative) Urine Glucose (UA) Trace H (Negative) Urine Ketones Negative (Negative) Urine Blood 3+ H (Negative) Urine Nitrite Negative (Negative) Urine Bilirubin Negative (Negative) Urine Urobilinogen Negative (Negative) Ur Leukocyte Esterase Negative (Negative) Urine WBC (Auto) 1-5 (0-5) /hpf Urine RBC (Auto) 0-4 (0-4) /hpf U Hyaline Cast (Auto) 1-5 (0-5) /lpf U Epithel Cells (Auto) >30 H (0-5) /lpf Urine Bacteria (Auto) 1+ H (Negative) Ur Renal Epithelial Cell Not Reportable Granular Casts 5-10 H (0) /lpf Ur Random Creatinine 65.5 mg/dl Ur Random Sodium mmol/L DESTINY Screen Anti-Proteinase 3 Anti-Myeloperoxidase ANCA Glomerular Base Memb Ab Complement C3 Complement C4 Free [place] LC, Quant Free Lambda LC, Quant Free [place]/Lambda Ratio 10/05/19 10/05/19 10/05/19 Range/Units 14:20 13:45 13:45 WBC (4.8-10.8) K/uL RBC (4.7-6.1) M/uL Hgb (14.0-18.0) g/dL Hct (42-52) % MCV (80-100) fL MCH (25-34) pg MCHC (32-36) g/dL RDW Std Deviation (36.4-46.3) fL RDW Coeff of Heather (11.5-14.5) % Plt Count (130-400) K/uL MPV (7.4-10.4) fL Immature Gran % (Auto) % Neut % (Auto) % Lymph % (Auto) % Hunt % (Auto) % Eos % (Auto) % Baso % (Auto) % Immature Gran # (Auto) (0.00-0.02) K/uL Neut # (Auto) (1.4-6.5) K/uL Lymph # (Auto) (1.2-3.4) K/uL Hunt # (Auto) (0.11-0.59) K/uL Eos # (Auto) (0-0.5) K/uL Baso # (Auto) (0-0.2) K/uL ESR (0-14) mm/hr PT 11.9 (9.0-12.0) Seconds INR 1.2 H (0.9-1.1) VBG pH (7.36-7.41) VBG pCO2 (38-50) mmHg VBG pO2 mmHg VBG HCO3 mmol/L VBG O2 Saturation % VBG Base Excess mEq/L Barometric Pressure mm/Hg Sodium (136-145) mmol/L Potassium (3.5-5.1) mmol/L Chloride (98-107) mmol/L Carbon Dioxide (21-32) mmol/L Anion Gap (3-11) BUN (7-18) mg/dl Creatinine (0.6-1.4) mg/dl Est Cr Clr Drug Dosing ml/min Est GFR ( Amer) Est GFR (Non-Af Amer) BUN/Creatinine Ratio (10-20) Glucose (70-99) mg/dl Lactate 1.5 (0.4-2.0) mmol/L Calcium (8.5-10.1) mg/dl Phosphorus (2.5-4.9) mg/dl Magnesium (1.8-2.4) mg/dl Total Bilirubin (0.2-1) mg/dl AST (15-37) U/L ALT (12-78) U/L Alkaline Phosphatase (45-117) U/L Total Creatine Kinase (39-308) U/L Troponin I Cancelled (0-0.045) ng/ml Total Protein (6.4-8.2) gm/dl Total Protein (PEP) Albumin (3.4-5.0) gm/dl Albumin (PEP) Globulin (2.5-4.0) gm/dl Albumin/Globulin Ratio (0.9-2) Mohjc-0-Bevbrkala Ziivg-6-Idccwzecm Keha-1-Kfjgitqi Vufo-9-Rrjuzwss Gamma Globulins Monoclonal Peak 3 Ser Monoclonl Protein Ser Monoclonal Prot 2 PEP Interpretation Vitamin B12 (211-911) pg/ml Folate (>5.38) ng/ml TSH (0.300-4.500) uIu/ml Urine Color Urine Appearance (Clear) Urine pH (4.5-7.5) Ur Specific [place] (1.000-1.030) Urine Protein (Negative) Urine Glucose (UA) (Negative) Urine Ketones (Negative) Urine Blood (Negative) Urine Nitrite (Negative) Urine Bilirubin (Negative) Urine Urobilinogen (Negative) Ur Leukocyte Esterase (Negative) Urine WBC (Auto) (0-5) /hpf Urine RBC (Auto) (0-4) /hpf U Hyaline Cast (Auto) (0-5) /lpf U Epithel Cells (Auto) (0-5) /lpf Urine Bacteria (Auto) (Negative) Ur Renal Epithelial Cell Granular Casts (0) /lpf Ur Random Creatinine mg/dl Ur Random Sodium mmol/L DESTINY Screen Anti-Proteinase 3 Anti-Myeloperoxidase ANCA Glomerular Base Memb Ab Complement C3 Complement C4 Free [place] LC, Quant Free Lambda LC, Quant Free [place]/Lambda Ratio 10/05/19 10/05/19 10/05/19 Range/Units 13:45 13:45 13:45 WBC 6.49 (4.8-10.8) K/uL RBC 3.98 L (4.7-6.1) M/uL Hgb 14.0 (14.0-18.0) g/dL Hct 40.6 L (42-52) % MCV 102.0 H (80-100) fL MCH 35.2 H (25-34) pg MCHC 34.5 (32-36) g/dL RDW Std Deviation 48.7 H (36.4-46.3) fL RDW Coeff of Heather 13.1 (11.5-14.5) % Plt Count 129 L (130-400) K/uL MPV 10.7 H (7.4-10.4) fL Immature Gran % (Auto) 0.2 % Neut % (Auto) 67.3 % Lymph % (Auto) 11.7 % Hunt % (Auto) 18.8 % Eos % (Auto) 1.7 % Baso % (Auto) 0.3 % Immature Gran # (Auto) 0.01 (0.00-0.02) K/uL Neut # (Auto) 4.37 (1.4-6.5) K/uL Lymph # (Auto) 0.76 L (1.2-3.4) K/uL Hunt # (Auto) 1.22 H (0.11-0.59) K/uL Eos # (Auto) 0.11 (0-0.5) K/uL Baso # (Auto) 0.02 (0-0.2) K/uL ESR > 90 H (0-14) mm/hr PT (9.0-12.0) Seconds INR (0.9-1.1) VBG pH (7.36-7.41) VBG pCO2 (38-50) mmHg VBG pO2 mmHg VBG HCO3 mmol/L VBG O2 Saturation % VBG Base Excess mEq/L Barometric Pressure mm/Hg Sodium 134 L (136-145) mmol/L Potassium 4.3 (3.5-5.1) mmol/L Chloride 104 (98-107) mmol/L Carbon Dioxide 16 L (21-32) mmol/L Anion Gap 14.0 H (3-11) BUN 47 H (7-18) mg/dl Creatinine 6.82 H* (0.6-1.4) mg/dl Est Cr Clr Drug Dosing 15.7 ml/min Est GFR ( Amer) 10.1 Est GFR (Non-Af Amer) 8.7 BUN/Creatinine Ratio 6.9 L (10-20) Glucose 116 H (70-99) mg/dl Lactate (0.4-2.0) mmol/L Calcium 10.0 (8.5-10.1) mg/dl Phosphorus (2.5-4.9) mg/dl Magnesium 1.3 L (1.8-2.4) mg/dl Total Bilirubin 1.3 H (0.2-1) mg/dl AST 80 H (15-37) U/L ALT 62 (12-78) U/L Alkaline Phosphatase 161 H (45-117) U/L Total Creatine Kinase (39-308) U/L Troponin I 0.105 H* (0-0.045) ng/ml Total Protein 8.9 H (6.4-8.2) gm/dl Total Protein (PEP) Albumin 4.0 (3.4-5.0) gm/dl Albumin (PEP) Globulin 4.9 H (2.5-4.0) gm/dl Albumin/Globulin Ratio 0.8 L (0.9-2) Pbvqw-7-Idvlamnsh Dotsw-6-Sffplxbcu Ppsu-3-Lbgdnuim Uvng-1-Bprvghvv Gamma Globulins Monoclonal Peak 3 Ser Monoclonl Protein Ser Monoclonal Prot 2 PEP Interpretation Vitamin B12 (211-911) pg/ml Folate (>5.38) ng/ml TSH 3.900 (0.300-4.500) uIu/ml Urine Color Urine Appearance (Clear) Urine pH (4.5-7.5) Ur Specific [place] (1.000-1.030) Urine Protein (Negative) Urine Glucose (UA) (Negative) Urine Ketones (Negative) Urine Blood (Negative) Urine Nitrite (Negative) Urine Bilirubin (Negative) Urine Urobilinogen (Negative) Ur Leukocyte Esterase (Negative) Urine WBC (Auto) (0-5) /hpf Urine RBC (Auto) (0-4) /hpf U Hyaline Cast (Auto) (0-5) /lpf U Epithel Cells (Auto) (0-5) /lpf Urine Bacteria (Auto) (Negative) Ur Renal Epithelial Cell Granular Casts (0) /lpf Ur Random Creatinine mg/dl Ur Random Sodium mmol/L DESTINY Screen Anti-Proteinase 3 Anti-Myeloperoxidase ANCA Glomerular Base Memb Ab Complement C3 Complement C4 Free [place] LC, Quant Free Lambda LC, Quant Free [place]/Lambda Ratio PG Care Time/CCT Total # of Minutes Spent Total Time Spent with Patient: Total time spent is greater than 50% in coordination of care (as documented) at patient's floor/unit and/or counseling patient: (1) Diarrhea Diarrhea type: unspecified type Qualified Code(s): R19.7 - Diarrhea, unspecified
[2019-10-06] MEDS ORDERED: MAGNESIUM SULFATE / D5W 1 GM/100 ML BAG IV ONE (12:15)
[2019-10-06 15:05] LABS: Appearance Urine Clear (Clear); Bacteria Urine Automated Negative (Negative); Bilirubin Urine Negative (Negative); Blood Urine 3+ (Negative); Color Urine Yellow; Epithelial Cell Urine Auto >30 /lpf (0-5); Glucose Urine UA 1+ (Negative); Ketones Urine Negative (Negative); Leukocyte Esterase Urine Negative (Negative); Nitrite Urine Negative (Negative); RBC Urine Automated 0-4 /hpf (0-4); Specific Gravity Urine 1.014 (1.000-1.030); Urobilinogen Urine Negative (Negative); pH Urine 7.5 (4.5-7.5)
[2019-10-06 15:29] LABS: Protein Urine Negative (Negative); Sulfosalicylic Acid Urine Negative (Negative)
[2019-10-06] MEDS: DOCUSATE SODIUM 100 MG CAP PO SCH (20:26)
[2019-10-06] MEDS: ZOLPIDEM TARTRATE 5 MG TAB PO PRN (22:32)
[2019-10-07] MEDS: SODIUM BICARBONATE 8.4% 150 MEQ in DEXTROSE 5% 1,000 ML IV SCH (02:14)
[2019-10-07 07:53] LABS: Albumin Level 3.3 gm/dl (3.4-5.0); BUN Creatinine Ratio 8.1 (10-20); Calcium 9.8 mg/dl (8.5-10.1); Creatinine Clr Calc Pharmacy 25.9 ml/min; Est GFR (African American) 18.5; Potassium 3.3 mmol/L (3.5-5.1)
[2019-10-07] MEDS: DOCUSATE SODIUM 100 MG CAP PO SCH ×2 (08:21→20:32)
[2019-10-07] MEDS: CLOPIDOGREL BISULFATE 75 MG TAB PO SCH (08:22)
[2019-10-07] MEDS: SENNA 8.6 MG TAB PO SCH (08:22)
[2019-10-07] MEDS: ASPIRIN 81 MG ECTAB PO SCH (08:22)
[2019-10-07] MEDS: HEPARIN SOD 5,000 UNIT/0.5 ML VIAL SQ SCH ×2 (08:22→20:32)
[2019-10-07] MEDS: SERTRALINE HCL 50 MG TABLET PO SCH (08:22)
[2019-10-07] MEDS: dilTIAZem HCL 120 MG CAPCR PO SCH (08:23)
[2019-10-07] MEDS ORDERED: POTASSIUM CHLORIDE 20 MEQ TABCR PO ONE (08:30)
--- NOTE | 2019-10-07 10:14 | Hospitalist Progress Note ---
Date of Service October 07, 2019 Assessment & Plan (1) MAE (acute kidney injury): - Presented with Creatinine 6.8 with associated metabolic acidosis; possibly related to prerenal in setting of dehydration/diarrhea vs. ATN vs. acute GN or interstitial nephritis. - U/a positive for +2 protein, +3 blood, +1 bacteria and granular cast cells -- proteinuria and hematuria raise concern for acute GN or acute interstitial nephritis. - 24 hour urine for proteinuria, ANCA, anti-GBM, DESTINY, complements C3 and C4, SPEP/UPEP pending. - Renal US negative for obstruction. - Creatinine is trending down, was 4.12 this morning; CO2 also trending up, no anion gap noted. - Will d/c sodium bicarb drip; PO intake is adequate. - Holding nephrotoxic meds, including Lisinopril; avoid NSAIDs. - Nephrology following, greatly appreciate input; may ultimately require renal biopsy for definitive diagnosis pending results of testing documented above. (2) Diarrhea: - May be related to viral gastroenteritis vs. other infectious source. - C. diff and stool cultures pending - is constipated, no BM since admission. (3) Newly recognized heart murmur: - Systolic ejection murmur noted on exam; did have childhood murmur but has not had any recent cardiology evaluations. - Concern for endocarditis but pt. does deny IV drug abuse, recent dental procedures, has 0 Lezama's Criteria; TTE was negative for vegetation, consider REBECA. - Received Dapto/Aztreonam in the ED, hold further doses. - Per patient, Dr. Lechuga is planning on discussing newly diagnosed murmur with him today. (4) Hypertension: - Continue CCB; hold home ACEI in setting of ARF. (5) HLD (hyperlipidemia): - Hold home statin. (6) CAD (coronary artery disease): - S/p 2 stents (RCA in 05/2018 & LCx in 06/2018) with Drs. Lechuga and Fortunato. - Continue ASA, Plavix. Holding home statin. (7) RUSSELL (nonalcoholic steatohepatitis): - S/p biopsy 09/14/19 showed hypersteatosis with possible early cirrhosis and fibrosis; he will be evaluated by hepatology later this month at [facility]. - His LFTs have fluctuated over last few months. - Consulted GI, appreciate input -- signed off, no acute intervention indicated. - Recommend complete cessation of ETOH; control other risk factors, including HLD, HTN, CAD as well to prevent progression of cirrhosis. - Monitor LFTs frequently. (8) Anemia: - B12 and Folate levels were WNL; has a macrocytic anemia noted on labs. - Will continue to monitor - has not required transfusion support. (9) Thrombocytopenia: - Baseline plt count ~120 since June 2019. - Caution with DVT ppx and ASA/Plavix therapy. (10) Elevated CK: - CK level was 2102. - Repeat CK level on 10/08 to monitor for improvement. (11) Epistaxis: - In setting of thrombocytopenia; consider plt transfusion if symptoms persist. - Prolonged INR in setting of underlying liver dysfunction -- consider Vit K x 3 doses. - Continue home Plavix/ASA due to cardiac history; pt. is refusing heparin, encouraged ambulation. (12) Anal fissure: - Recently evaluated by Dr. Garcia and placed on Diltiazem topical ointment. - Of note, pt. also has required banding for hemorrhoids in setting of Plavix/ASA therapy. (13) Depression: - Continue home Zoloft as prescribed. (14) DVT prophylaxis: - Heparin BID - pt has been refusing injection; caution in setting of thrombocytopenia. K level 3.3 -- ordered K 20 mEq PO x 1 dose. Dispo: Med/surg with tele for evaluation of ARF; nephro following. DNR/DNI - pt. did confirm this with SO present in room on day of admission. Supervising Physician Co-Signing Physician Notes I have seen and examined patient with Holley Fuentes PA-C and agree with assessment and plan. Subjective Pt. is stable -- no BMs since admission. Is having intermittent nose bleeds - has been refusing heparin, ambulating often in hallways. Creatinine level is trending down, will continue to monitor. Review of Systems Review of Systems: All systems reviewed & are unremarkable except as noted in HPI & below Constitutional: no fever, no chills, no fatigue, no weakness and no anorexia Respiratory: no cough, no dyspnea, no dyspnea on exertion and no wheezing Cardiovascular: no chest pain, no palpitations and no edema Gastrointestinal: + constipation; no abdominal pain, no nausea and no vomiting Genitourinary: no dysuria and no difficulty urinating Musculoskeletal: no back pain and no joint pain Integumentary: no non-healing lesions Physical Exam Physical Exam: General: Resting comfortably. HEENT: NC/AT; PERRLA with EOMI; [place] conjunctiva, MMM. +Epistaxis noted during exam. Neck: Supple and nontender Cardiac: +3/6 systolic murmur noted. Lungs: CTA bilaterally Abdomen: Bowel normoactive X 4; Nontender to palpation Extremities: Warm. No edema present Neuro: No focal weakness Skin: No rash Results & Data Vital Signs (Past 12 Hours) Vital Signs Temp Pulse Pulse Resp BP BP Pulse Ox 10/07/19 07:26 36.8 C 64 20 122/70 96 10/07/19 04:00 36.8 C 57 L 20 124/68 96 10/07/19 03:38 61 10/06/19 23:53 36.8 C 56 L 20 131/70 95 Laboratory Results 10/07/19 10/07/19 10/07/19 Range/Units 10:10 06:52 06:52 Sodium 139 (136-145) mmol/L Potassium 3.3 L D (3.5-5.1) mmol/L Chloride 105 (98-107) mmol/L Carbon Dioxide 26 (21-32) mmol/L Anion Gap 9.0 (3-11) BUN 33 H (7-18) mg/dl Creatinine 4.12 H D (0.6-1.4) mg/dl Est Cr Clr Drug Dosing 25.9 ml/min Est GFR ( Amer) 18.5 Est GFR (Non-Af Amer) 16.0 BUN/Creatinine Ratio 8.1 L (10-20) Glucose 99 (70-99) mg/dl Calcium 9.8 (8.5-10.1) mg/dl Phosphorus 4.0 (2.5-4.9) mg/dl Total Protein (PEP) Pending Albumin 3.3 L (3.4-5.0) gm/dl Albumin (PEP) Pending [id number] Pending Akciz-8-Ycufolwon Pending [id number]-Emjrbgvm Pending [id number]-Wovwyyba Pending Gamma Globulins Pending Monoclonal Peak 3 Pending Ser Monoclonl Protein Pending Ser Monoclonal Prot 2 Pending PEP Interpretation Pending Urine Color Urine Appearance (Clear) Urine pH (4.5-7.5) Ur Specific Bighorn (1.000-1.030) Urine Protein (Negative) Urine Glucose (UA) (Negative) Urine Ketones (Negative) Urine Blood (Negative) Urine Nitrite (Negative) Urine Bilirubin (Negative) Urine Urobilinogen (Negative) Ur Leukocyte Esterase (Negative) Urine WBC (Auto) (0-5) /hpf Urine RBC (Auto) (0-4) /hpf U Hyaline Cast (Auto) (0-5) /lpf U Epithel Cells (Auto) (0-5) /lpf Urine Bacteria (Auto) (Negative) Urine Total Volume Pending Ur Total Protein 24 Hr Pending Urine Total Protein Pending 10/06/19 Range/Units 14:01 Sodium (136-145) mmol/L Potassium (3.5-5.1) mmol/L Chloride (98-107) mmol/L Carbon Dioxide (21-32) mmol/L Anion Gap (3-11) BUN (7-18) mg/dl Creatinine (0.6-1.4) mg/dl Est Cr Clr Drug Dosing ml/min Est GFR ( Amer) Est GFR (Non-Af Amer) BUN/Creatinine Ratio (10-20) Glucose (70-99) mg/dl Calcium (8.5-10.1) mg/dl Phosphorus (2.5-4.9) mg/dl Total Protein (PEP) Albumin (3.4-5.0) gm/dl Albumin (PEP) [id number] Vuaxd-6-Ibyzrurhu Vkye-6-Vbqwsibm Qhry-7-Qtnntodx Gamma Globulins Monoclonal Peak 3 Ser Monoclonl Protein Ser Monoclonal Prot 2 PEP Interpretation Urine Color Yellow Urine Appearance Clear (Clear) Urine pH 7.5 (4.5-7.5) Ur Specific Bighorn 1.014 (1.000-1.030) Urine Protein Negative (Negative) Urine Glucose (UA) 1+ H (Negative) Urine Ketones Negative (Negative) Urine Blood 3+ H (Negative) Urine Nitrite Negative (Negative) Urine Bilirubin Negative (Negative) Urine Urobilinogen Negative (Negative) Ur Leukocyte Esterase Negative (Negative) Urine WBC (Auto) 1-5 (0-5) /hpf Urine RBC (Auto) 0-4 (0-4) /hpf U Hyaline Cast (Auto) 1-5 (0-5) /lpf U Epithel Cells (Auto) >30 H (0-5) /lpf Urine Bacteria (Auto) Negative (Negative) Urine Total Volume Ur Total Protein 24 Hr Urine Total Protein PG Care Time/CCT Total # of Minutes Spent Total Time Spent with Patient: Total time spent is greater than 50% in coordination of care (as documented) at patient's floor/unit and/or counseling patient: (1) Diarrhea Diarrhea type: unspecified type Qualified Code(s): R19.7 - Diarrhea, unspecified
--- NOTE | 2019-10-07 10:28 | Nephrology Progress Note ---
Date of Service October 07, 2019 Assessment & Plan (1) MAE (acute kidney injury): Paddy presented to the hospital with 1 day history of diarrheal illness and found to have acute kidney injury with prior normal kidney function. On admission creatinine was 6.5 with metabolic acidosis, normal potassium. Diarrhea resolved and denies any other systemic symptom. Urinalysis with 2+ proteinuria hematuria. Renal ultrasound was unremarkable for any evidence of post renal obstruction. Currently, blood pressure, volume status acceptable. Denies any uremic symptoms. Acute kidney injury could be secondary to prerenal versus ATN however with hematuria and proteinuria in urinalysis there is definitive concern for acute GN versus acute interstitial nephritis. Renal function continues to improve. --DC IV fluid if po intake adequate -- avoid all NSAIDs, hold lisinopril for now. --if renal function continues to improve and clinically otherwise stable, OK to be DC tomorrow, will f/u the pending labs. Will follow. Subjective Paddy was seen and examined this morning. Overall doing well, no diarrhea, appetite fine. BP, volume status acceptable. Renal function improving. Review of Systems Review of Systems: All systems reviewed & are unremarkable except as noted in HPI & below Physical Exam Constitutional: WD/WN, vitals as above no acute distress Respiratory: normal respiratory effort, lungs clear to auscultation Cardiovascular: Rate/Rhythm: regular rate and regular rhythm Heart Sounds: normal S1, normal S2 and + murmur Skin: no rashes, warm and dry Neurologic: moves all extremities and awake; not confused Psychiatric: A+Ox3, euthymic affect Results & Data Vital Signs (Past 12 Hours) Vital Signs Temp Pulse Pulse Resp BP BP Pulse Ox 10/07/19 07:26 36.8 C 64 20 122/70 96 10/07/19 04:00 36.8 C 57 L 20 124/68 96 10/07/19 03:38 61 10/06/19 23:53 36.8 C 56 L 20 131/70 95 PG Care Time/CCT Total # of Minutes Spent Total Time Spent with Patient: Total time spent is greater than 50% in coordination of care (as documented) at patient's floor/unit and/or counseling patient:
[2019-10-07 10:49] LABS: Urine Total Protein 74.6 mg/dl
[2019-10-07 10:52] LABS: Total Protein 24 Hour Urine 2051.5 mg/24 Hr (0-149.1)
[2019-10-07] MEDS ORDERED: DAPTOmycin 450 MG in SYRINGE 0 ML IV SCH (16:00)
[2019-10-07] MEDS: ZOLPIDEM TARTRATE 5 MG TAB PO PRN (21:54)
[2019-10-08 06:47] LABS: Hematocrit (blood only) 39.1 % (42-52); Hemoglobin 13.1 g/dL (14.0-18.0); Mean Corpuscular Hemoglobin 34.6 pg (25-34); Mean Corpuscular Hgb Conc 33.5 g/dL (32-36); Mean Corpuscular Volume 103.2 fL (80-100); Mean Platelet Volume 10.5 fL (7.4-10.4); Platelet Count 100 K/uL (130-400); RDW Coefficient of Variation 12.8 % (11.5-14.5); RDW Standard Deviation 48.4 fL (36.4-46.3); Red Blood Count 3.79 M/uL (4.7-6.1); White Blood Count 5.05 K/uL (4.8-10.8)
[2019-10-08 07:25] LABS: Albumin Level 3.4 gm/dl (3.4-5.0); BUN Creatinine Ratio 10.3 (10-20); Calcium 10.3 mg/dl (8.5-10.1); Creatinine Clr Calc Pharmacy 31.6 ml/min; Est GFR (African American) 23.8; Est GFR (Non-African American) 20.5; Potassium 3.6 mmol/L (3.5-5.1)
[2019-10-08 07:40] LABS: Albumin Globulin Ratio 0.8 (0.9-2); Bilirubin,Total 1.1 mg/dl (0.2-1); Globulin 4.4 gm/dl (2.5-4.0); Total Protein 7.8 gm/dl (6.4-8.2)
[2019-10-08] MEDS ORDERED: SODIUM CHLORIDE 0.9% 1000ML 500 ML IV ONE (08:03)
[2019-10-08] MEDS: SENNA 8.6 MG TAB PO SCH (08:18)
[2019-10-08] MEDS: ASPIRIN 81 MG ECTAB PO SCH (08:18)
[2019-10-08] MEDS: SERTRALINE HCL 50 MG TABLET PO SCH (08:18)
[2019-10-08] MEDS: CLOPIDOGREL BISULFATE 75 MG TAB PO SCH (08:18)
[2019-10-08] MEDS: DOCUSATE SODIUM 100 MG CAP PO SCH ×2 (08:18→20:00)
[2019-10-08] MEDS: dilTIAZem HCL 120 MG CAPCR PO SCH (08:19)
[2019-10-08] MEDS: HEPARIN SOD 5,000 UNIT/0.5 ML VIAL SQ SCH ×2 (08:19→20:01)
[2019-10-08] MEDS: SODIUM CHLORIDE 0.9% 1000ML 1,000 ML IV SCH ×3 (08:49→22:06)
--- NOTE | 2019-10-08 11:25 | Hospitalist Progress Note ---
Date of Service October 08, 2019 Assessment & Plan (1) MAE (acute kidney injury): - Presented with Creatinine 6.8 with associated metabolic acidosis; possibly related to prerenal in setting of dehydration/diarrhea vs. ATN vs. acute GN or interstitial nephritis. - U/a positive for +2 protein, +3 blood, +1 bacteria and granular cast cells -- proteinuria and hematuria raise concern for acute GN or acute interstitial nephritis. - 24 hour urine for proteinuria, ANCA, anti-GBM, DESTINY, complements C3 and C4, SPEP/UPEP pending. - Renal US negative for obstruction. - Creatinine is trending down, was 4.12 this morning; CO2 also trending up, no anion gap noted. - Will d/c sodium bicarb drip; PO intake is adequate. - Holding nephrotoxic meds, including Lisinopril; avoid NSAIDs. - Nephrology following, greatly appreciate input; may ultimately require renal biopsy for definitive diagnosis pending results of testing documented above. (2) Diarrhea: - May be related to viral gastroenteritis vs. other infectious source. - C. diff and stool cultures pending - is constipated, no BM since admission. (3) Newly recognized heart murmur: - Systolic ejection murmur noted on exam; did have childhood murmur but has not had any recent cardiology evaluations. - Concern for endocarditis but pt. does deny IV drug abuse, recent dental procedures, has 0 Lezama's Criteria; TTE was negative for vegetation, consider REBECA. - Received Dapto/Aztreonam in the ED, hold further doses. - Per patient, Dr. Lechuga is planning on discussing newly diagnosed murmur with him today. (4) Hypertension: - Continue CCB; hold home ACEI in setting of ARF. (5) HLD (hyperlipidemia): - Hold home statin. (6) CAD (coronary artery disease): - S/p 2 stents (RCA in 05/2018 & LCx in 06/2018) with Drs. Lechuga and Fortunato. - Continue ASA, Plavix. Holding home statin. (7) RUSSELL (nonalcoholic steatohepatitis): - S/p biopsy 09/14/19 showed hypersteatosis with possible early cirrhosis and fibrosis; he will be evaluated by hepatology later this month at [facility]. - His LFTs have fluctuated over last few months. - Consulted GI, appreciate input -- signed off, no acute intervention indicated. - Recommend complete cessation of ETOH; control other risk factors, including HLD, HTN, CAD as well to prevent progression of cirrhosis. - Monitor LFTs frequently. (8) Anemia: - B12 and Folate levels were WNL; has a macrocytic anemia noted on labs. - Will continue to monitor - has not required transfusion support. (9) Thrombocytopenia: - Baseline plt count ~120 since June 2019. - Caution with DVT ppx and ASA/Plavix therapy. (10) Elevated CK: - CK level was 2102. - Repeat CK level on 10/08 to monitor for improvement. (11) Epistaxis: - In setting of thrombocytopenia; consider plt transfusion if symptoms persist. - Prolonged INR in setting of underlying liver dysfunction -- consider Vit K x 3 doses. - Continue home Plavix/ASA due to cardiac history; pt. is refusing heparin, encouraged ambulation. (12) Anal fissure: - Recently evaluated by Dr. Garcia and placed on Diltiazem topical ointment. - Of note, pt. also has required banding for hemorrhoids in setting of Plavix/ASA therapy. (13) Depression: - Continue home Zoloft as prescribed. (14) DVT prophylaxis: - Heparin BID - pt has been refusing injection; caution in setting of thrombocytopenia. K level 3.3 -- ordered K 20 mEq PO x 1 dose. Dispo: Med/surg with tele for evaluation of ARF; nephro following. DNR/DNI - pt. did confirm this with SO present in room on day of admission. Results & Data Vital Signs (Past 12 Hours) Vital Signs Temp Pulse Pulse Pulse Resp BP BP 10/08/19 11:15 36.4 C L 66 18 155/72 H 10/08/19 08:15 71 10/08/19 07:17 36.7 C 59 L 18 136/76 10/08/19 03:09 36.8 C 64 18 118/66 10/08/19 02:14 48 L 10/07/19 23:40 37.0 C 75 18 126/65 Pulse Ox 10/08/19 11:15 94 10/08/19 08:15 10/08/19 07:17 95 10/08/19 03:09 95 10/08/19 02:14 10/07/19 23:40 96 PG Care Time/CCT Total # of Minutes Spent Total Time Spent with Patient: Total time spent is greater than 50% in coordination of care (as documented) at patient's floor/unit and/or counseling patient: (1) Diarrhea Diarrhea type: unspecified type Qualified Code(s): R19.7 - Diarrhea, unspecified
--- NOTE | 2019-10-08 11:38 | Nephrology Progress Note ---
Date of Service October 08, 2019 Assessment & Plan (1) MAE (acute kidney injury): Paddy presented to the hospital with 1 day history of diarrheal illness and found to have acute kidney injury with prior normal kidney function. On admission creatinine was 6.5 with metabolic acidosis, normal potassium. Diarrhea resolved and denies any other systemic symptom. Urinalysis with 2+ proteinuria hematuria. Renal ultrasound was unremarkable for any evidence of post renal obstruction. Currently, blood pressure, volume status acceptable. Denies any uremic symptoms. Acute kidney injury could be secondary to prerenal versus ATN however with hematuria and proteinuria in urinalysis there is definitive concern for acute GN versus acute interstitial nephritis. Renal function continues to improve, creatinine down to 3.3 however he was found to have elevated CK and calcium was high at 10.3. --resume IV fluid, normal saline at 150ml/h, worsened check CPK, renal panel mainly to follow-up on calcium in the afternoon and if CPK stays stable okay to be discharged with close outpatient lab monitoring. -- avoid all NSAIDs, hold lisinopril for now. --avoid ca and vit D, check PTha nd vit D Will follow. Subjective Paddy was seen and examined this morning his at bedside. Overall doing well, no diarrhea, appetite fine. BP, volume status acceptable. Renal function improving. CPK came back elevated at again to around 4000. Calcium slightly elevated at 10.3. Review of Systems Review of Systems: All systems reviewed & are unremarkable except as noted in HPI & below Physical Exam Constitutional: WD/WN, vitals as above well developed and well nourished; no acute distress Neck: trachea midline Respiratory: normal respiratory effort, lungs clear to auscultation no cough Auscultation: no crackles, no rales and no wheezes Cardiovascular: RRR, no murmur, no edema Rate/Rhythm: regular rate and regular rhythm Heart Sounds: normal S1, normal S2 and + murmur Skin: no rashes, warm and dry Neurologic: moves all extremities and awake; not confused Psychiatric: A+Ox3, euthymic affect Results & Data Vital Signs (Past 12 Hours) Vital Signs Temp Pulse Pulse Pulse Resp BP BP 10/08/19 11:15 36.4 C L 66 18 155/72 H 10/08/19 08:15 71 10/08/19 07:17 36.7 C 59 L 18 136/76 10/08/19 03:09 36.8 C 64 18 118/66 10/08/19 02:14 48 L 10/07/19 23:40 37.0 C 75 18 126/65 Pulse Ox 10/08/19 11:15 94 10/08/19 08:15 10/08/19 07:17 95 10/08/19 03:09 95 10/08/19 02:14 10/07/19 23:40 96 PG Care Time/CCT Total # of Minutes Spent Total Time Spent with Patient: Total time spent is greater than 50% in coordination of care (as documented) at patient's floor/unit and/or counseling patient:
[2019-10-08 14:56] LABS: Albumin Level 3.2 gm/dl (3.4-5.0); BUN Creatinine Ratio 9.5 (10-20); Calcium 9.5 mg/dl (8.5-10.1); Creatinine Clr Calc Pharmacy 33.6 ml/min; Est GFR (African American) 25.7; Est GFR (Non-African American) 22.1; Potassium 3.3 mmol/L (3.5-5.1)
[2019-10-08] MEDS ORDERED: POTASSIUM CHLORIDE 20 MEQ TABCR PO STA (15:07)
[2019-10-08 15:14] LABS: Phosphorus 2.7 mg/dl (2.5-4.9)
--- NOTE | 2019-10-08 15:31 | Hospitalist Progress Note ---
Date of Service October 08, 2019 Assessment & Plan (1) MAE (acute kidney injury): - Presented with Creatinine 6.8 with associated metabolic acidosis; possibly related to prerenal in setting of dehydration/diarrhea vs. ATN vs. acute GN or interstitial nephritis. - U/a positive for +2 protein, +3 blood, +1 bacteria and granular cast cells -- proteinuria and hematuria raise concern for acute GN or acute interstitial nephritis. - 24 hour urine for proteinuria, ANCA, anti-GBM, DESTINY, complements C3 and C4, SPEP/UPEP pending. - Renal US negative for obstruction. - Creatinine is trending down, 3.13 per most recent labs. - Restarted NS at 150 cc/hr in setting of elevated CK levels. - Holding nephrotoxic meds, including Lisinopril; avoid NSAIDs. - Nephrology following, greatly appreciate input; may ultimately require renal biopsy for definitive diagnosis pending results of testing documented above. (2) Elevated CK: - CK level was 2,102 on 10/06, trended up to 3,979 this morning --> 4,711 this afternoon (after aggressive IV fluids) - Holding home statin. - Continue NS at 150 cc/hr; also received 500 cc bolus. - Repeat CK level in the morning. - Discussed case with rheumatology -- autoimmune process unlikely as ARF responded well without initiation of IV steroids. ANCA is pending (?vasculitis but unlikely). Will send HMG CoA reductase Ab test to evaluate for statin induced rhabdo (1 week send out lab). Polymyositis is unlikely as pt. did not present with progressive weakness x 2-3 months. Rhabdo is likely related metabolic etiology. DESTINY was negative in June, is not likely related to lupus. ESR was >90, could be multi-factorial. (3) Diarrhea: - May be related to viral gastroenteritis vs. other infectious source. - C. diff and stool cultures pending. (4) Newly recognized heart murmur: - Systolic ejection murmur noted on exam; did have childhood murmur but has not had any recent cardiology evaluations. - Concern for endocarditis but pt. does deny IV drug abuse, recent dental procedures, has 0 Lezama's Criteria; TTE was negative for vegetation, consider REBECA. - Received Dapto/Aztreonam in the ED, hold further doses. - Follows with Dr. Lechuga. (5) Hypertension: - Continue CCB; hold home ACEI in setting of ARF. (6) HLD (hyperlipidemia): - Holding home statin in setting of rhabdo/elevated CK levels. (7) CAD (coronary artery disease): - S/p 2 stents (RCA in 05/2018 & LCx in 06/2018) with Drs. Lechuga and Fortunato. - Continue ASA, Plavix. Holding home statin. (8) RUSSELL (nonalcoholic steatohepatitis): - S/p biopsy 09/14/19 showed hypersteatosis with possible early cirrhosis and fibrosis; he will be evaluated by hepatology later this month at [facility]. - LFTs have fluctuated over last few months. - Consulted GI, appreciate input -- signed off, no acute intervention indicated. - Recommend complete cessation of ETOH; control other risk factors, including HLD, HTN, CAD as well to prevent progression of cirrhosis. - Monitor LFTs frequently - trending up slightly over last few days. (9) Anemia: - B12 and Folate levels were WNL; has a macrocytic anemia noted on labs. (10) Thrombocytopenia: - Baseline plt count ~120 since June 2019. - Caution with DVT ppx and ASA/Plavix therapy. (11) Epistaxis: - In setting of thrombocytopenia. - Prolonged INR in setting of underlying liver dysfunction -- consider Vit K x 3 doses. - Continue home Plavix/ASA due to cardiac history. (12) Anal fissure: - Recently evaluated by Dr. Garcia and placed on Diltiazem topical ointment. - Of note, pt. also has required banding for hemorrhoids in setting of Plavix/ASA therapy. (13) Depression: - Continue home Zoloft as prescribed. (14) DVT prophylaxis: - Heparin BID - pt has been refusing injection; caution in setting of thrombocytopenia. K level 3.3 -- ordered K 40 mEq PO x 1 dose. Dispo: Med/surg with tele for evaluation of ARF; nephro following. Discharge pending improvement in rhabdomyolysis. DNR/DNI - pt. did confirm this with SO present in room on day of admission. Supervising Physician Co-Signing Physician Notes I have seen and examined pt with Holley Fuentes PA-C and agree with assessment and plan. Subjective Pt. is feeling well overall -- eating/drinking as tolerated. Denies chest pain, SOB. CK level elevated, trending up overall -- will continue aggressive IV fluids and monitor over next 24 hours. Review of Systems Review of Systems: All systems reviewed & are unremarkable except as noted in HPI & below Constitutional: no fever, no chills, no fatigue, no weakness and no anorexia Respiratory: no cough, no dyspnea and no dyspnea on exertion Cardiovascular: no chest pain and no edema Gastrointestinal: + constipation; no abdominal pain and no nausea Musculoskeletal: no back pain and no joint pain Physical Exam Physical Exam: General: Resting comfortably. HEENT: NC/AT; PERRLA with EOMI; [place] conjunctiva, MMM. +Epistaxis noted during exam. Neck: Supple and nontender Cardiac: +3/6 systolic murmur noted. Lungs: CTA bilaterally Abdomen: Bowel normoactive X 4; Nontender to palpation Extremities: Warm. No edema present Neuro: No focal weakness Skin: No rash Results & Data Vital Signs (Past 12 Hours) Vital Signs Temp Pulse Pulse Resp BP BP Pulse Ox 10/08/19 14:39 36.9 C 65 18 144/67 H 96 10/08/19 11:15 36.4 C L 66 18 155/72 H 94 10/08/19 08:15 71 10/08/19 07:17 36.7 C 59 L 18 136/76 95 Laboratory Results 10/08/19 10/08/19 10/08/19 Range/Units 15:03 14:15 09:34 WBC (4.8-10.8) K/uL RBC (4.7-6.1) M/uL Hgb (14.0-18.0) g/dL Hct (42-52) % MCV (80-100) fL MCH (25-34) pg MCHC (32-36) g/dL RDW Std Deviation (36.4-46.3) fL RDW Coeff of Heather (11.5-14.5) % Plt Count (130-400) K/uL MPV (7.4-10.4) fL Sodium 141 (136-145) mmol/L Potassium 3.3 L (3.5-5.1) mmol/L Chloride 107 (98-107) mmol/L Carbon Dioxide 23 (21-32) mmol/L Anion Gap 11.0 (3-11) BUN 30 H (7-18) mg/dl Creatinine 3.13 H (0.6-1.4) mg/dl Est Cr Clr Drug Dosing 33.6 ml/min Est GFR ( Amer) 25.7 Est GFR (Non-Af Amer) 22.1 BUN/Creatinine Ratio 9.5 L (10-20) Glucose 114 H (70-99) mg/dl Calcium 9.5 (8.5-10.1) mg/dl Phosphorus 2.7 D (2.5-4.9) mg/dl Total Bilirubin (0.2-1) mg/dl AST (15-37) U/L ALT (12-78) U/L Alkaline Phosphatase (45-117) U/L Total Creatine Kinase 4711 H (39-308) U/L Total Protein (6.4-8.2) gm/dl Albumin 3.2 L (3.4-5.0) gm/dl Globulin (2.5-4.0) gm/dl Albumin/Globulin Ratio (0.9-2) Vit D 1,25-Dihyd Total Pending 1,25 Dihydroxy Vit D2 Pending 1,25 Dihydroxy Vit D3 Pending PTH Intact (18.4-80.1) pg/ml Stl C. diff Tox B Gene Pending 10/08/19 10/08/19 10/08/19 Range/Units 09:34 06:08 06:08 WBC 5.05 (4.8-10.8) K/uL RBC 3.79 L (4.7-6.1) M/uL Hgb 13.1 L (14.0-18.0) g/dL Hct 39.1 L (42-52) % MCV 103.2 H (80-100) fL MCH 34.6 H (25-34) pg MCHC 33.5 (32-36) g/dL RDW Std Deviation 48.4 H (36.4-46.3) fL RDW Coeff of Heather 12.8 (11.5-14.5) % Plt Count 100 L (130-400) K/uL MPV 10.5 H (7.4-10.4) fL Sodium 140 (136-145) mmol/L Potassium 3.6 (3.5-5.1) mmol/L Chloride 107 (98-107) mmol/L Carbon Dioxide 26 (21-32) mmol/L Anion Gap 7.0 (3-11) BUN 34 H (7-18) mg/dl Creatinine 3.33 H D (0.6-1.4) mg/dl Est Cr Clr Drug Dosing 31.6 ml/min Est GFR ( Amer) 23.8 Est GFR (Non-Af Amer) 20.5 BUN/Creatinine Ratio 10.3 (10-20) Glucose 82 (70-99) mg/dl Calcium 10.3 H (8.5-10.1) mg/dl Phosphorus (2.5-4.9) mg/dl Total Bilirubin 1.1 H (0.2-1) mg/dl AST 145 H (15-37) U/L ALT 69 (12-78) U/L Alkaline Phosphatase 153 H (45-117) U/L Total Creatine Kinase 3979 H (39-308) U/L Total Protein 7.8 (6.4-8.2) gm/dl Albumin 3.4 (3.4-5.0) gm/dl Globulin 4.4 H (2.5-4.0) gm/dl Albumin/Globulin Ratio 0.8 L (0.9-2) Vit D 1,25-Dihyd Total 1,25 Dihydroxy Vit D2 1,25 Dihydroxy Vit D3 PTH Intact 42.0 (18.4-80.1) pg/ml Stl C. diff Tox B Gene PG Care Time/CCT Total # of Minutes Spent Total Time Spent with Patient: Total time spent is greater than 50% in coordination of care (as documented) at patient's floor/unit and/or counseling patient: (1) Diarrhea Diarrhea type: unspecified type Qualified Code(s): R19.7 - Diarrhea, unspecified
[2019-10-08] MEDS: ZOLPIDEM TARTRATE 5 MG TAB PO PRN (22:06)
[2019-10-09] MEDS: SODIUM CHLORIDE 0.9% 1000ML 1,000 ML IV SCH ×2 (03:57→11:44)
[2019-10-09 06:31] LABS: BUN Creatinine Ratio 12.9 (10-20); Calcium 9.2 mg/dl (8.5-10.1); Creatinine Clr Calc Pharmacy 47.1 ml/min; Est GFR (African American) 38.1; Est GFR (Non-African American) 32.8; Potassium 3.7 mmol/L (3.5-5.1)
[2019-10-09 06:45] LABS: Albumin Globulin Ratio 0.8 (0.9-2); Globulin 3.9 gm/dl (2.5-4.0); Total Protein 6.9 gm/dl (6.4-8.2)
[2019-10-09] MEDS: dilTIAZem HCL 120 MG CAPCR PO SCH (09:00)
[2019-10-09] MEDS: CLOPIDOGREL BISULFATE 75 MG TAB PO SCH (09:01)
[2019-10-09] MEDS: DOCUSATE SODIUM 100 MG CAP PO SCH (09:01)
[2019-10-09] MEDS: ASPIRIN 81 MG ECTAB PO SCH (09:01)
[2019-10-09] MEDS: SERTRALINE HCL 50 MG TABLET PO SCH (09:01)
[2019-10-09] MEDS: SENNA 8.6 MG TAB PO SCH (09:01)
[2019-10-09] MEDS: HEPARIN SOD 5,000 UNIT/0.5 ML VIAL SQ SCH (09:01)
[2019-10-09 11:41] VITALS: BP 161/74; TEMP 98.6; O2SAT 96
--- NOTE | 2019-10-09 12:27 | Nephrology Progress Note ---
Date of Service October 09, 2019 Assessment & Plan (1) MAE (acute kidney injury): Paddy presented to the hospital with 1 day history of diarrheal illness and found to have acute kidney injury with prior normal kidney function. On admission creatinine was 6.5 with metabolic acidosis, normal potassium. Diarrhea resolved and denies any other systemic symptom. Urinalysis with 2+ proteinuria hematuria. Renal ultrasound was unremarkable for any evidence of post renal obstruction. Currently, blood pressure, volume status acceptable. Denies any uremic symptoms. Kidney function continues to improve. Would stop IV fluids at this time. Encourage oral fluids. Patient should have close outpatient follow-up in the nephrology clinic with Dr. Gallegos after discharge. Patient's CPK remains elevated. The etiology of this is unclear. He did have daptomycin on . Physical exam is unrevealing. No other significant culprit medications were identified. We will repeat this afternoon and if stable improving discharge with outpatient follow-up Subjective No acute events overnight. Overall, the patient feels well. He hopes to be discharged home today. Review of Systems Constitutional: no weight loss, no weight gain and no problem reported Eyes: no problem reported Ear, Nose, Mouth, Throat: no problem reported Respiratory: no problem reported Cardiovascular: no problem reported Gastrointestinal: no problem reported Musculoskeletal: no problem reported Integumentary: no problem reported Neurologic: no problem reported Psychiatric: no problem reported Endocrine: no problem reported Hematologic / Lymphatic: no problem reported Physical Exam Constitutional: well developed; no acute distress Eyes: no scleral abnormality and no corneal abnormality ENMT: Mouth: no oral mucosal abnormality and oral mucous membranes not dry Neck: normal visual inspection and trachea midline Respiratory: normal respiratory effort Auscultation: lungs clear to auscultation bilaterally Cardiovascular: Rate/Rhythm: regular rate Heart Sounds: normal S1 and normal S2 Extremities: no edema Musculoskeletal: Extremities: no cyanosis and no clubbing Skin: normal turgor; no lesions Neurologic: Motor/Sensory: no tremor and no asterixis Psychiatric: Orientation: alert and oriented x 3 Results & Data Vital Signs (Past 12 Hours) Vital Signs Temp Pulse Pulse Resp BP BP Pulse Ox 10/09/19 11:39 37.0 C 64 20 161/74 H 96 10/09/19 09:23 36.6 C 60 60 18 135/75 135/75 92 10/09/19 08:55 63 153/75 H 10/09/19 02:55 37.0 C 67 17 124/70 96 PG Care Time/CCT Total # of Minutes Spent Total Time Spent with Patient: Total time spent is greater than 50% in coordination of care (as documented) at patient's floor/unit and/or counseling patient:
[2019-10-09 13:43] LABS: Calcium 9.6 mg/dl (8.5-10.1); Creatinine Clr Calc Pharmacy 45.9 ml/min; Est GFR (African American) 36.9; Est GFR (Non-African American) 31.8; Potassium 3.4 mmol/L (3.5-5.1)
[2019-10-09 14:14] VITALS: PULSE 66
--- NOTE | 2019-10-09 15:16 | Discharge Summary ---
Date of Service October 09, 2019 Admission HPI Per Admitting Provider 48yo M w/ hx of CAD s/p 2 stents in LCx (06/2018) and RCA (05/2018) & presumed RUSSELL fibrosis/early cirrhosis who presents for acute renal failure. Per the patient, he was in his usual state of health until 1pm yesterday when he began to feel dizzy, "punky," and had shaking hands and feet. Around 3pm, he had a large amount of non-bloody, non-tarry watery diarrhea which he reports occurred nearly every 30 minutes almost until midnight. He reports it has tapered off since then, but he is still going almost every hour. He also notes subjective chills, though no measured fever. His significant other in the room notes that he has been more "wheezy" in the last few weeks, though he does not note this. He reports drinking plenty of water and having normal output of light urine. He has not had any dysuria, polyuria, chest pain, abdominal pain, shortness of breath, headache, or other issues. He has an anal fissure with some bleeding, and has been using diltiazem suppositories, but has not noted any new, more significant pain in the rectal area and no major bleeding. Principal Diagnosis Acute renal failure, improving Discharge Exam Constitutional WD/WN, vitals as above Eyes PERRL, conjunctivae normal, anicteric sclerae ENMT external ear and nose normal, oropharynx normal Neck trachea midline, no thyromegaly Respiratory normal respiratory effort, lungs clear to auscultation Cardiovascular Rate/Rhythm: regular rate and regular rhythm Heart Sounds: normal S1, normal S2 and + murmur Vessels: no JVD Extremities: normal capillary refill; no edema Gastrointestinal (Abdomen) normal bowel sounds, soft, nontender, no hepatosplenomegaly Musculoskeletal no cyanosis or clubbing, extremities motor strength 5/5 Skin no rashes, warm and dry Neurologic patellar DTR's 2+ bilat, sensation intact and PERRL, EOMI, accommodation nl, no face palsy, no dysarthria Psychiatric A+Ox3, euthymic affect Lymphatic no cervical or axillary lymphadenopathy Discharge Data Allergies Allergy/AdvReac Type Severity Reaction Status Date / Time mushroom Allergy Severe ANAPHALYAXSIS, Verified 10/05/19 17:04 HIVES oxycodone Allergy Severe rash Verified 10/05/19 17:04 swelling, anaphylaxis Penicillins Allergy Severe Hives, Verified 10/05/19 19:08 swelling hydrocodone Allergy Intermediate SWELLING, Verified 10/05/19 17:04 HIVES codeine Allergy MO Hives, Verified 10/05/19 17:04 swelling Consultations 10/05/19 15:39 ED Decision to Admit Stat 10/05/19 19:28 Consult Gastroenterology Routine Consult Nephrology Routine Ordered Studies 10/05/19 15:29 US renal/blad retro comp Stat Hospital Course (1) MAE (acute kidney injury): - Presented with Creatinine 6.8 with associated metabolic acidosis; possibly related to prerenal in setting of dehydration/diarrhea vs. ATN vs. acute GN or interstitial nephritis. - U/a positive for +2 protein, +3 blood, +1 bacteria and granular cast cells -- proteinuria and hematuria raise concern for acute GN or acute interstitial nephritis. - 24 hour urine for proteinuria = 2gm level, ANCA, anti-GBM, DESTINY, complements C3 and C4, SPEP/UPEP pending. - Renal US negative for obstruction. Cr trended down with IV fluids and holding any potential nephrotoxins Cr down to 2.2 and 2.3 on the day of discharge d/c to home, instructed to stay well hydrated and get rest, avoid NSAIDs, Lisinopril etc repeat BMP on 10/12 with results to PCP and Dr. Gallegos follow up scheduled with Dr. Gallegos in one week discussed d/c plan with Dr. Barrera today (2) Elevated CK: - CK level was 2,102 on 10/06, trended up to 3,979 --> 4,711 and then 6000 and 6100 today continue to hold statin no muscle pain or weakness could be Daptomycin dose received earlier in admission? repeat CPK level on 10/12 HMG CoA reductase Ab sent out, results pending (3) Diarrhea: - May be related to viral gastroenteritis vs. other infectious source. - C. diff and stool cultures negative (4) Newly recognized heart murmur: - Systolic ejection murmur noted on exam; did have childhood murmur but has not had any recent cardiology evaluations. - blood cultures negative, no clinical signs of endocarditis follow up with Dr. Lechuga as previously scheduled 10/23 (5) Hypertension: - Continue CCB; hold home ACEI in setting of ARF. continue to hold Ming inh on discharge (6) HLD (hyperlipidemia): - Holding home statin in setting of rhabdo/elevated CK levels. (7) CAD (coronary artery disease): - S/p 2 stents (RCA in 05/2018 & LCx in 06/2018) with Drs. Lechuga and Fortunato. - Continue ASA, Plavix. Holding home statin. (8) RUSSELL (nonalcoholic steatohepatitis): - S/p biopsy 09/14/19 showed hypersteatosis with possible early cirrhosis and fibrosis; he will be evaluated by hepatology later this month at [facility]. - LFTs have fluctuated over last few months, stable during this admission - Recommend complete cessation of ETOH; control other risk factors, including HLD, HTN, CAD as well to prevent progression of cirrhosis. follow up with [facility] as scheduled (9) Anemia: - B12 and Folate levels were WNL; has a macrocytic anemia noted on labs. (10) Thrombocytopenia: - Baseline plt count ~120 since June 2019. - Caution with DVT ppx and ASA/Plavix therapy. (11) Epistaxis: - In setting of thrombocytopenia. - Prolonged INR in setting of underlying liver dysfunction -- consider Vit K x 3 doses. - Continue home Plavix/ASA due to cardiac history. (12) Anal fissure: - Recently evaluated by Dr. Garcia and placed on Diltiazem topical ointment. - Of note, pt. also has required banding for hemorrhoids in setting of Plavix/ASA therapy. (13) Depression: - Continue home Zoloft as prescribed. (14) DVT prophylaxis: - Heparin BID - pt has been refusing injection; caution in setting of thrombocytopenia. Total Time Total Time Spent Total Time Spent (In Minutes): 40 minutes Total Time Includes: Examination of the Patient, Discharge Planning, Medication Reconciliation, Communication With Other Providers (Dr. Barrera) and Other (discussion with patient's ) Discharge Plan Discharge Items Patient Disposition: Home - Self-Care Reason For Visit: RENAL FAILURE Discharge Diagnosis: Acute Renal Failure Condition on Discharge: Fair Goals: follow up renal function with labs on 10/[address] Gallegos with nephrology early next week, 10/16 Activity: As commented below Lifting: Gradually increase as tolerated Bathing: No limitations Sexual Activity: When tolerated Exercise/Sports: Wait until after follow-up appointment Driving/Machine Use: Resume 1 day after discharge Weightbearing: Full weightbearing Non-emergency contact: Primary Care Provider and Parachute Repairer Call non-emergency contact if: you have any medication questions, your symptoms worsen, your pain is not controlled and you have a fever Follow-up/Referrals: Dorothy Gallegos MD [Physician] - 10/16/19 3:15 pm (Please, follow up at [facility] Nephrology Office with Dr. Gallegos on WednesdayOctober 16 at 3:15 pm. *The office is located in [address] of [facility], next to this hospital. If you need to change this appointment, call the office at [phone].) Moise Drake, [Primary Care Provider] - 10/13/19 9:20 am (Please, follow up with Dr. Moise Drake on WednesdayOctober 13 at 9:20 am. *If you need to change this appointment, call the office at [phone].) Diet: Heart Healthy and Low Sodium (2gm) Ambulatory Orders: Basic Metabolic Panel (Routine) Timeframe: 3 Days Location: Determined by Patient Ordered By: Jasper Montenegro Creatine Kinase (Routine) Timeframe: 3 Days Location: Determined by Patient Ordered By: Jasper Valdes Attending Provider Instructions: Medications: - POTASSIUM: dose reduced to 20mEq from 40 Acute renal failure: still unclear etiology, multiple serology studies pending Cr has improved to 2.2 from a Cr of 6.8 on admission looking at past labs, your baseline is 1.0-1.2 you are making urine, your electrolytes are stable and Cr coming down will order repeat BMP for , results will go to Dr Gallegos recommend that you keep follow up appt with nephrology for next week, my nurse navigator will help arrange AVOID all NSAIDs such as ibuprofen, naproxen, Advil, Aleve etc Heart murmur: keep appt with Dr. Lechuga there was no growth on blood cultures here, no concerns at all for endocarditis RUSSELL: keep appt with [facility] bilirubin, other liver enzymes stable here minimally elevated to normal levels during stay important to continue to abstain from alcohol Elevated creatine kinase (muscle enzyme) could be delayed reaction from Daptomycin (antibiotic) safe to follow up outpatient since you have no muscle pain, no weakness recommend that you do NOT take rosuvastatin until told to resume by physician antibody for autoimmune reaction to the statin sent out, but results will take a week Pending Studies at Discharge: Yes Studies:: multiple serology studies for acute renal failure anti HMG CoA reductase testing Stand-Alone Forms: My [facility] Medications and DC Order Prescriptions: New potassium chloride [Klor-Con M20] 20 mEq tablet,ER particles/crystals 20 meq PO DAILY 30 Days Qty: 30 RF: 1 Continued fluticasone propionate [Flonase Allergy Relief] 50 mcg/actuation spray,suspension 1 sprays intranasal BID PRN (Reason: Allergy Symptoms) Qty: 1 RF: 0 multivitamin Tablet 1 tab PO QAM RF: 0 clopidogrel [Plavix] 75 mg Tablet 75 mg PO QAM RF: 0 nitroglycerin [Nitrostat] 0.4 mg Tablet, Sublingual 0.4 mg Sublingual UD PRN (Reason: CHEST PAINS) RF: 0 diltiazem HCl 120 mg Capsule,Extended Release 24hr 120 mg PO QAM RF: 0 omega [id number] oil [Fish Oil] 1,000 mg (120 mg-180 mg) Capsule 1,000 mg PO QAM RF: 0 broccoli flower 500 mg Tablet 600 mg PO DAILY RF: 0 aspirin 81 mg Tablet,Delayed Release (Dr/Ec) 81 mg PO HS RF: 0 pantoprazole 40 mg tablet,delayed release (DR/EC) 40 mg PO HS RF: 0 sertraline [Zoloft] 25 mg tablet 25 mg PO QAM RF: 0 cholecalciferol (vitamin D3) 50,000 unit capsule 50,000 units PO 2XWK RF: 0 lidocaine 5 % ointment 1 appln TOP UD PRN (Reason: anal irritation) RF: 0 Discontinued rosuvastatin 20 mg tablet 20 mg PO HS Qty: 90 RF: 3 Discharge Orders: Discharge Order (Routine); Ordered 10/09/19 Ordered By: Jasper Montenegro Admission Data Admit Date/Time: 10/05/19 16:51 Attending Provider: Jasper Montenegro Admit Provider: Tree Drake Primary Care Provider: Moise Drake Other Providers: Tree Drake ; Uday Akhtar ; Dorothy Gallegos Other Interventions: Discharge Summary Assessment (RN) Last Done: 10/09/19 14:11 DC Date/Time DO NOT enter until pt leaves facility: 10/09/19 15:01
[2019-10-09 20:42] LABS: Albumin 3.5 G/DL (3.8-4.8); Alpha 1 Globulin 0.3 G/DL (0.2-0.3); Alpha 2 Globulin 0.8 G/DL (0.5-0.9); Beta-1-Globulin 0.4 G/DL (0.4-0.6); Beta-2-Globulin 0.5 G/DL (0.2-0.5); Gamma Globulin 1.2 G/DL (0.8-1.7); Monoclonal Protein Band 1 DNR G/DL (NOT DETECTED); Monoclonal Protein Band 2 DNR G/DL (NOT DETECTED); Monoclonal Protein Band 3 DNR G/DL (NOT DETECTED); Total Protein 6.7 G/DL (6.2-8.3)
[2019-10-12 17:22] LABS: Vitamin D 1,25 30 pg/mL (18-72); Vitamin D3,1,25 30 pg/mL
== END 2019-10-09 15:01 | disposition home or self-care (01) | DRG 684 ==
LOC: ED 13:28 → SUATTDRO 16:51 → 2W 16:51

== ENCOUNTER 2019-10-13 12:00 | Inpatient (IN) ==
[2019-10-13] MEDS ORDERED: SODIUM CHLORIDE 0.9% 1000ML 1,000 ML IV SCH ×2 (12:30)
[2019-10-13 13:25] LABS: Basophils # (auto) 0.03 K/uL (0-0.2); Basophils % (auto) 0.8 %; Eosinophils # (auto) 0.12 K/uL (0-0.5); Hematocrit (blood only) 39.4 % (42-52); Hemoglobin 13.5 g/dL (14.0-18.0); Lymphocytes # (auto) 0.87 K/uL (1.2-3.4); Lymphocytes % (auto) 21.8 %; Mean Corpuscular Hgb Conc 34.3 g/dL (32-36); Mean Corpuscular Volume 102.1 fL (80-100); Mean Platelet Volume 10.1 fL (7.4-10.4); Neutrophils # (auto) 2.38 K/uL (1.4-6.5); Neutrophils % (auto) 59.4 %; Platelet Count 127 K/uL (130-400); RDW Coefficient of Variation 13.1 % (11.5-14.5); RDW Standard Deviation 48.5 fL (36.4-46.3); Red Blood Count 3.86 M/uL (4.7-6.1)
[2019-10-13 13:42] LABS: Albumin Level 3.5 gm/dl (3.4-5.0); BUN Creatinine Ratio 14.1 (10-20); Calcium 9.9 mg/dl (8.5-10.1); Creatinine Clr Calc Pharmacy 71.2 ml/min; Est GFR (African American) 63.5; Est GFR (Non-African American) 54.8; Potassium 3.2 mmol/L (3.5-5.1)
[2019-10-13 14:14] LABS: Albumin Globulin Ratio 0.8 (0.9-2); Bilirubin,Total 1.2 mg/dl (0.2-1); Globulin 4.5 gm/dl (2.5-4.0); Thyroid Stimulating Hormone 2.71 uIu/ml (0.300-4.500)
[2019-10-13 14:36] LABS: Appearance Urine Clear (Clear); Bacteria Urine Automated Negative (Negative); Bilirubin Urine Negative (Negative); Blood Urine 2+ (Negative); Color Urine Yellow; Glucose Urine UA Trace (Negative); Ketones Urine Negative (Negative); Leukocyte Esterase Urine Negative (Negative); Nitrite Urine Negative (Negative); Protein Urine Negative (Negative); RBC Urine Automated 0-4 /hpf (0-4); Specific Gravity Urine 1.016 (1.000-1.030); Urobilinogen Urine Negative (Negative); pH Urine 5.5 (4.5-7.5)
[2019-10-13] MEDS ORDERED: SODIUM CHLORIDE 0.9% 1000ML 1,000 ML IV ONE (15:13)
[2019-10-13 17:33] LABS: Amphetamines+Metham, Urine Neg (Neg); Barbiturates, Urine Neg (Neg); Benzodiazepine, Urine Neg (Neg); Cocaine, Urine Neg (Neg); MDMA (Ecstacy), Urine Neg (Neg); Methadone, Urine Neg (Neg); Opiate, Urine Neg (Neg); Phencyclidine, Urine Neg (Neg)
--- NOTE | 2019-10-13 18:23 | History & Physical Report ---
Date of Service October 13, 2019 Assessment & Plan (1) Rhabdomyolysis: 49-year-old male with history of NSTEMI x2, severe CAD status post stent to RCA and mid circumflex, hyperlipidemia, hypertension, hepatic steatosis (possibly Norman versus alcoholic given history) and GERD presents for concern of elevated CK per PCP. Rhabdomyolysis Possibly the second thing of alcohol withdrawal: Patient stopped drinking 2-1/2 weeks ago and has active tremors Denies marijuana/recreational drug use, negative drug screen Potassium 3.2, [place] 2 [place] [address] LR at 150 cc/h -ensure urine output of 200 to 300 cc/h Continue to monitor CK MAE: Improving Likely in the setting of rhabdomyolysis versus ATN BUNs/creatinine 19/12.48 -patent improved from 1.6 yesterday and 6.8 on 10/05/2018 Previous admission: - U/a positive for +2 protein, +3 blood, +1 bacteria and granular cast cells -- proteinuria and hematuria raise concern for acute GN or acute interstitial nephritis. - 24 hour urine for proteinuria = 2gm level, -ANCA, anti-GBM, DESTINY, complements C3 and C4, SPEP/UPEP: wnl, free kappa and lambda light chains both increased with normal ratio which likely points to renal disease Current UA no protein, trace ketones and 2+ blood (likely myoglobin) Elevated liver enzymes Likely secondary to alcohol intake versus rhabdo History of hepatic steatosis: Likely alcoholic versus Norman AST 502, ALT 143 alk phos 145 total bili 1.2 (gradually increased since previous admission) Renal ultrasound 10/05/2019: Noted hepatic steatosis Continue to monitor LFTs History of CAD/NSTEMI/hyperlipidemia/hypertension Continue home aspirin, Plavix, diltiazem Hold home lisinopril in the setting of MAE Hold home statin in the setting of abnormal LFTs GERD Continue home Protonix Anal fissures Continue home lidocaine and diltiazem topical FEN/GI: Heart healthy diet, LR at 150 cc/h DVT prophylaxis: Encourage ambulation, SCDs Code: DNR/DNI as discussed with patient Disposition: MedSurg with telemetry (2) HLD (hyperlipidemia): (3) Anal fissure: (4) Thrombocytopenia: (5) CAD (coronary artery disease): (6) MAE (acute kidney injury): (7) Anemia: (8) S/P coronary artery stent placement: (9) Acute diverticulitis: History of Present Illness Chief Complaint: Lab abnormality Primary Care Provider: Moise Drake DO 49-year-old male with history of NSTEMI x2, severe CAD status post stent to RCA and mid circumflex, hyperlipidemia, hypertension, hepatic steatosis (possibly Norman versus alcoholic given history) presents with elevated CK per PCP. Patient was admitted on 10/05/2019 for 1 day history of diarrheal illness and found to have acute kidney injury with prior normal kidney function. On admission creatinine was 6.5 with metabolic acidosis, normal potassium. Diarrhea resolved, his renal function improved and he was discharged home with p.o. intake encouragement and nephrology follow-up. However his CPK remains elevated to 6000 on 10/09/2019 on the day of discharge of unknown etiology potential risk factors included receiving daptomycin on 10/05/2019. Today patient reports feeling well however his PCP had checked labs and noted elevated CK of 11,000 and was told to come to the emergency room. He has anal fissures and reports occasional blood on toilet paper. Otherwise denies any fever, chills, chest pain, shortness of breath, headache, lightheadedness, nausea, vomiting, abdominal pain, diarrhea, constipation, hematochezia, melena dysuria, hematuria Patient denies marijuana or recreational drug use. Reports stopping alcohol 2- 1/2 weeks ago. Patient used to drink 3 mixed drinks on Wednesday and Wednesday. Quit smoking 4-1/2 years ago used to smoke for 28 years 1 pack/day 20 pack years Allergies Allergy/AdvReac Type Severity Reaction Status Date / Time mushroom Allergy Severe ANAPHALYAXSIS, Verified 10/13/19 15:00 HIVES oxycodone Allergy Severe rash Verified 10/13/19 15:00 swelling, anaphylaxis Penicillins Allergy Severe Hives, Verified 10/13/19 15:00 swelling hydrocodone Allergy Intermediate SWELLING, Verified 10/13/19 15:00 HIVES codeine Allergy MO Hives, Verified 10/13/19 15:00 swelling Home Medications Home Medications Medication Instructions Recorded Confirmed Type clopidogrel [Plavix] 75 mg PO QAM 10/04/18 10/13/19 History diltiazem HCl 120 mg PO QAM 10/04/18 10/13/19 History multivitamin 1 tab PO QAM 10/04/18 10/13/19 History nitroglycerin [Nitrostat] 0.4 mg SUBLINGUAL UD PRN 10/04/18 10/13/19 History omega 4-mvo-oue-fish oil [Fish Oil] 1,000 mg PO QAM 10/04/18 10/13/19 History fluticasone propionate 50 1 sprays INTRANASAL BID PRN #1 gm 06/20/19 10/13/19 History mcg/actuation nasal spray,suspension broccoli flower 600 mg PO QAM 09/14/19 10/13/19 History aspirin 81 mg PO QAM 10/05/19 10/13/19 History cholecalciferol (vitamin D3) 50,000 units PO UD 10/05/19 10/13/19 History lidocaine 1 appln TOP UD PRN 10/05/19 10/13/19 History pantoprazole 40 mg PO QAM 10/05/19 10/13/19 History sertraline [Zoloft] 25 mg PO QAM 10/05/19 10/13/19 History Diltiazem 2% Ointment 1 applic TOPICAL TID 10/13/19 10/13/19 History docusate sodium [Colace] 100 mg PO BID 10/13/19 10/13/19 History hydroxyzine HCl 25 mg tablet See Rx Instructions PO .qhs PRN 10/13/19 10/13/19 Rx #60 tab oxymetazoline [Afrin 2 spray INTRANASAL Q12H PRN 10/13/19 10/13/19 History (oxymetazoline)] potassium chloride [Klor-Con M20] 20 meq PO QAM 10/13/19 10/13/19 History Past Med/Surg History Medical History Asthma MILD - NO INHALERS Bronchitis H/O Degenerative disc disease Depression NO MEDICATIONS CURRENTLY Diverticular disease Fatty liver GERD (gastroesophageal reflux disease) H/O esophageal spasm TAKES CARDIZEM H/O mitral valve prolapse HAS "GONE AWAY IN THE LAST 20 YEARS" Hemorrhoid Hypertension Myocardial Infarction Osteoarthritis Sleep apnea RECENT DIAGNOSIS -- NO MACHINE YET (CPAP) Surgical History History of cardiac cath MAY & JUNE 2018 AT [facility] JUN 2019 AT [facility] History of colonoscopy Done withing the last year. 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: No Beliefs That Will Affect Care: None marital status: Current Living Situation: Spouse current occupational status: employed Other Information That Helps Us Care for You: No Feels Safe at Home: Yes Safety Concerns: Feels Safe At This Time Smoking Status: Former smoker Tobacco Type: cigarettes ; Age Quit Using Tobacco: 44 ; packs per day: 1 ; Do You Dip or Chew Tobacco: No ; Number of Years Since Quit: 4 ; Second Hand Exposure: No ; Hx Alcohol Use: Yes Alcohol type: beer Alcohol Intake Frequency: Weekly Alcohol Intake Frequency Comment: 2-3 week Hx Substance Use: No Dental Care, Regularly: Yes Physical Activity Frequency: Does not Exercise Review of Systems Review of Systems: As per HPI Physical Exam Physical Exam: General: In NAD HEENT: moist oral mucosa Neuro: A&O x 4, active hand tremors Pulm: CTAB equal breath sounds bilaterally CV: RRR, no m/r/g, cap refill 3 secs Abdomen:+BS, no TTP in all quadrants, non-distended LE: no LE edema, no calf TTP Results & Data Vital Signs (Past 12 Hours) Vital Signs Temp Pulse Resp BP Pulse Ox 10/13/19 18:00 59 L 14 99 10/13/19 17:31 49 L 17 98 10/13/19 17:30 53 L 16 153/78 H 97 10/13/19 17:01 53 L 21 98 10/13/19 17:00 58 L 21 139/83 99 10/13/19 16:31 54 L 20 98 10/13/19 16:30 52 L 23 139/86 97 10/13/19 16:01 56 L 16 99 10/13/19 16:00 59 L 20 147/91 H 98 10/13/19 15:31 59 L 24 98 10/13/19 15:30 57 L 17 147/83 H 97 10/13/19 15:00 74 23 98 10/13/19 14:31 58 L 24 97 10/13/19 14:30 57 L 21 142/81 H 97 10/13/19 14:00 66 18 149/83 H 97 10/13/19 13:30 59 L 15 155/77 H 97 10/13/19 13:11 53 L 18 145/75 H 96 10/13/19 13:00 54 L 18 96 10/13/19 12:03 36.6 C 16 L 16 153/85 H 97 Laboratory Results Abnormal lab results 10/13/19 10/13/19 10/13/19 Range/Units 13:08 13:08 14:10 WBC 4.00 L (4.8-10.8) K/uL RBC 3.86 L (4.7-6.1) M/uL Hgb 13.5 L (14.0-18.0) g/dL Hct 39.4 L (42-52) % MCV 102.1 H (80-100) fL MCH 35.0 H (25-34) pg RDW Std Deviation 48.5 H (36.4-46.3) fL Plt Count 127 L (130-400) K/uL Lymph # (Auto) 0.87 L (1.2-3.4) K/uL Pacific # (Auto) 0.60 H (0.11-0.59) K/uL Potassium 3.2 L (3.5-5.1) mmol/L Chloride 109 H (98-107) mmol/L BUN 21 H (7-18) mg/dl Creatinine 1.48 H (0.6-1.4) mg/dl Glucose 127 H (70-99) mg/dl Total Bilirubin 1.2 H (0.2-1) mg/dl AST 502 H (15-37) U/L ALT 143 H (12-78) U/L Alkaline Phosphatase 145 H (45-117) U/L Total Creatine Kinase 56009 H (39-308) U/L Globulin 4.5 H (2.5-4.0) gm/dl Albumin/Globulin Ratio 0.8 L (0.9-2) Urine Glucose (UA) Trace H (Negative) Urine Blood 2+ H (Negative) U Epithel Cells (Auto) 5-10 H (0-5) /lpf Code Status & VTE Plan Code Status DNR/DNI per patient VTE Prophylaxis Plan VTE Prophylaxis will be ordered: Yes Supervising Physician Co-Signing Physician Notes I personally interviewed and examined the patient. I agree with history of present illness and physical exam mentioned above, I also performed my own history taking and examination. Past medical history and review of system has been obtained by myself I reviewed all pertinent labs and studies Reviewed current medications I discussed and formulated of the assessment and plan mentioned above. Please refer to the Summary mentioned below. 49-year-old male with history of non-STEMI x2, CAD status post stents, dyslipidemia, hypertension, alcohol abuse and GERD recently admitted for diarrhea acute kidney injury and rhabdomyolysis, was discharged after renal function improved, unfortunately after discharge patient creatinine CK started going up again he was sent from her primary care physician after CT was 11,000, his CK here in the ED is 24,000 will be admitted for hydration and treatment of rhabdo, patient denies any use of any drugs or marijuana, denies synthetic or medicinal marijuana, patient reported that he has been sober from alcohol for 2 weeks now. Unsure about the cause of his rhabdo if not improved by tomorrow consider consulting nephrology General Appearance: not in acute distress Eyes: normal Sclerae, extraocular muscle intact ENT: hearing grossly normal Neck: supple Respiratory/Chest: normal air entry bilateral ,no respiratory distress, no accessory muscle use Cardiovascular: regular rate, rhythm, no murmur Abdomen: non tender, soft, no masses Extremities: no edema musculoskeletal: no significant swelling or inflammation in any joint Neurologic/Psychiatric: Awake alert oriented times place and person moves all extremities sensation intact cranial nerves II-12 appear to be intact Skin: normal color, warm/dry, no rash Mariola Betancourt MD, [facility] hospitalist group Resident Activity Tracking Resident Involvement: Resident Care Provided Care Provided: Adult Hospital Medicine (1) Rhabdomyolysis Rhabdomyolysis type: non-traumatic Qualified Code(s): M62.82 - Rhabdomyolysis
--- NOTE | 2019-10-13 19:31 | Emergency Department Note ---
Entered by See Bang acting as a scribe for ED Provider Note CHIEF COMPLAINT: Abnormal labs HISTORY OF PRESENT ILLNESS: The patient is a 49 year old male who presents to the ED with a chief complaint of abnormal labs that he was notified of today while seeing his doctor as an outpatient. The patient reports that he was recently hospitalized for acute renal failure last week. At this time his creatinine level was 6.8 which is greatly increased from his baseline of 1.2. The patient states that he had a stomach bug just prior to his kidney injury which the doctors thought might have made him severely dehydrated. The patient adds that yesterday his creatinine lev el was greatly improved at 1.6, however his CK levels were elevated at 11,537. The patient denies any muscle soreness or aches but given his recent kidney injury, Dr. Drake told him to go to the ED. The patient states he has a nephrology appointment next week and is currently asymptomatic. The patient is on Plavix for a history of CAD and 2 coronary stents. Pt denies LOC, headache, fevers, chills, diaphoresis, visual changes, neck pain, chest pain, breathing difficulties, nausea, vomiting, abdominal pain, back pain, melena, hematochezia, urinary symptoms, numbness, weakness, lymphadenopathy, rash, or other complaints. REVIEW OF SYSTEMS: See HPI for pertinent positives and negatives. A total of ten systems were reviewed and were otherwise negative. PMHx/PSHx: HLD CAD Diverticulitis HTN SOCIAL HISTORY: Patient lives at home. PHYSICAL EXAM: GENERAL: Awake, alert, well-appearing, in no distress HENT: Normocephalic, atraumatic. Oropharynx unremarkable. EYES: Normal conjunctiva. Sclera non-icteric. NECK: Inspection normal. Non-tender. Supple. No nuchal rigidity. FROM. No masses. RESPIRATORY: Clear to auscultation. No wheezes. No rales. Normal respiratory effort. CARDIAC: Normal rate. Normal rhythm. No murmurs. No rubs. Extremities warm and well perfused. Pulses equal. No JVD. GI: Soft, non-distended. No tenderness to palpation. No rebound or guarding. No masses. RECTAL: Deferred. MUSCULOSKELETAL: Atraumatic. Chest examination reveals no tenderness. The back is symmetrical on inspection without obvious abnormality. There is no CVA tenderness to palpation. No joint edema. LOWER EXTREMITIES: Calves are equal size bilaterally and non-tender. No edema. No discoloration. NEURO: Normal sensorium. No sensory or motor deficits noted. SKIN: No rash or jaundice noted. Venipuncture site is nontender. No thrombosis. EMERGENCY DEPARTMENT COURSE: 1250: Past medical records reviewed. The patient was evaluated in room C4, and a complete history and physical examination were performed. 1525: I checked on and updated the patient on all results. 1651: I discussed the case with Dr. Graham-[facility] Hospitalist who accepts the patient for further evaluation. MEDICAL DECISION MAKING: Patient presents to the emergency department due to abnormal outpatient labs. The patient had an elevated total CK. Differential includes rhabdomyolysis, acute kidney injury, medication effect, infectious, myositis, as well as others. Blood work was obtained. The patient was started on IV hydration. His CBC showed a mild pancytopenia. The patient did have mild hypokalemia but otherwise his chemistry panel was unremarkable. The patient's total CK came back markedly elevated over 24,000. He is experiencing rhabdomyolysis. The exact etiology is not obvious at this time. I did review his medications with pharmacy. He was taken off of his cholesterol medication previously. He will need further management in the hospital to prevent further deterioration. I gave my usual and customary discussion regarding this issue. Consult patient was made with internal medicine. The patient was evaluated for further management. IMPRESSION: Rhabdomyolysis PLAN: Evaluated by hospitalist. The scribe's documentation has been prepared under my direction and personally reviewed by me in its entirety. I confirm that the note above accurately reflects all work, treatment, procedures, and medical decision making performed by me. Impression & Plan Rhabdomyolysis Past Med/Surg History Medical History Asthma MILD - NO INHALERS Bronchitis H/O Degenerative disc disease Depression NO MEDICATIONS CURRENTLY Diverticular disease Fatty liver GERD (gastroesophageal reflux disease) H/O esophageal spasm TAKES CARDIZEM H/O mitral valve prolapse HAS "GONE AWAY IN THE LAST 20 YEARS" Hemorrhoid Hypertension Myocardial Infarction Osteoarthritis Sleep apnea RECENT DIAGNOSIS -- NO MACHINE YET (CPAP) Surgical History History of cardiac cath MAY & JUNE 2018 AT [facility] JUN 2019 AT [facility] History of colonoscopy Done withing the last year. History of esophagogastroduodenoscopy (EGD) History of heart valve replacement X2 STENTS (MAY AND JUNE 2018) AT [facility] Family History Grandfather Family history of esophageal cancer Mother Myocardial infarction Father Myocardial infarction Grandfather (Maternal) Prostate cancer Other Colon cancer Social History Preferred Language: Mauritian Communication Ability: Effective Visual Impairment: No Limitations 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: Normal Devulcanizer Tender Required: No Beliefs That Will Affect Care: None marital status: Current Living Situation: Spouse current occupational status: employed Feels Safe at Home: Yes Smoking Status: Former smoker Tobacco Type: cigarettes ; Age Quit Using Tobacco: 44 ; packs per day: 1 ; Number of Years Since Quit: 4 ; Second Hand Exposure: No ; Hx Alcohol Use: Yes Alcohol type: beer Alcohol Intake Frequency: Weekly Alcohol Intake Frequency Comment: 2-3 week Hx Substance Use: No Dental Care, Regularly: Yes Physical Activity Frequency: Does not Exercise Results & Data Vital Signs Vital Signs - 24 hr 10/13/19 12:03 10/13/19 13:00 10/13/19 13:11 Temperature 36.6 C Temperature Source Oral Pulse Rate 16 L 54 L 53 L Pulse Rate from SpO2 Sensor 54 L Pulse Rhythm Regular Respiratory Rate 16 18 18 Respiratory Effort / Characteristics Non-Labored Respiratory Depth Normal Respiratory Pattern Regular Blood Pressure 153/85 H 145/75 H Blood Pressure Mean 107 89 Blood Pressure Position Sitting Pulse Oximetry 97 96 96 Oxygen Delivery Method Room Air Room Air Sepsis Recent Fever Within 48 Hours No Sepsis New/Unexplained Change in Mental Status No Sepsis Action Taken by Nursing No Action Required 10/13/19 13:30 10/13/19 14:00 10/13/19 14:30 Temperature Temperature Source Pulse Rate 59 L 66 57 L Pulse Rate from SpO2 Sensor 58 L 56 L Pulse Rhythm Respiratory Rate 15 18 21 Respiratory Effort / Characteristics Respiratory Depth Respiratory Pattern Blood Pressure 155/77 H 149/83 H 142/81 H Blood Pressure Mean 103 93 97 Blood Pressure Position Pulse Oximetry 97 97 97 Oxygen Delivery Method Sepsis Recent Fever Within 48 Hours Sepsis New/Unexplained Change in Mental Status Sepsis Action Taken by Nursing 10/13/19 14:31 10/13/19 15:00 10/13/19 15:30 Temperature Temperature Source Pulse Rate 58 L 74 57 L Pulse Rate from SpO2 Sensor 59 L 74 54 L Pulse Rhythm Respiratory Rate 24 23 17 Respiratory Effort / Characteristics Respiratory Depth Respiratory Pattern Blood Pressure 147/83 H Blood Pressure Mean 104 Blood Pressure Position Pulse Oximetry 97 98 97 Oxygen Delivery Method Sepsis Recent Fever Within 48 Hours Sepsis New/Unexplained Change in Mental Status Sepsis Action Taken by Nursing 10/13/19 15:31 10/13/19 16:00 10/13/19 16:01 Temperature Temperature Source Pulse Rate 59 L 59 L 56 L Pulse Rate from SpO2 Sensor 58 L 59 L 56 L Pulse Rhythm Respiratory Rate 24 20 16 Respiratory Effort / Characteristics Respiratory Depth Respiratory Pattern Blood Pressure 147/91 H Blood Pressure Mean 112 Blood Pressure Position Pulse Oximetry 98 98 99 Oxygen Delivery Method Sepsis Recent Fever Within 48 Hours Sepsis New/Unexplained Change in Mental Status Sepsis Action Taken by Nursing 10/13/19 16:30 10/13/19 16:31 10/13/19 17:00 Temperature Temperature Source Pulse Rate 52 L 54 L 58 L Pulse Rate from SpO2 Sensor 53 L 55 L 56 L Pulse Rhythm Respiratory Rate 23 20 21 Respiratory Effort / Characteristics Respiratory Depth Respiratory Pattern Blood Pressure 139/86 139/83 Blood Pressure Mean 109 94 Blood Pressure Position Pulse Oximetry 97 98 99 Oxygen Delivery Method Sepsis Recent Fever Within 48 Hours Sepsis New/Unexplained Change in Mental Status Sepsis Action Taken by Nursing 10/13/19 17:01 10/13/19 17:30 10/13/19 17:31 Temperature Temperature Source Pulse Rate 53 L 53 L 49 L Pulse Rate from SpO2 Sensor 52 L 52 L 49 L Pulse Rhythm Respiratory Rate 21 16 17 Respiratory Effort / Characteristics Respiratory Depth Respiratory Pattern Blood Pressure 153/78 H Blood Pressure Mean 89 Blood Pressure Position Pulse Oximetry 98 97 98 Oxygen Delivery Method Sepsis Recent Fever Within 48 Hours Sepsis New/Unexplained Change in Mental Status Sepsis Action Taken by Nursing 10/13/19 18:00 10/13/19 18:30 10/13/19 18:33 Temperature Temperature Source Pulse Rate 59 L 53 L 53 L Pulse Rate from SpO2 Sensor 61 52 L 54 L Pulse Rhythm Respiratory Rate 14 24 18 Respiratory Effort / Characteristics Respiratory Depth Respiratory Pattern Blood Pressure 146/85 H Blood Pressure Mean 101 Blood Pressure Position Pulse Oximetry 99 97 97 Oxygen Delivery Method Sepsis Recent Fever Within 48 Hours Sepsis New/Unexplained Change in Mental Status Sepsis Action Taken by Care Home Medications Current Medication List: was personally reviewed by me Laboratory Data Attestation: I reviewed the patient's lab results. Result diagrams: 10/13/19 13:08 10/13/19 13:08 Lab Results 10/13/19 10/13/19 10/13/19 Range/Units 13:08 13:08 14:10 WBC 4.00 L (4.8-10.8) K/uL RBC 3.86 L (4.7-6.1) M/uL Hgb 13.5 L (14.0-18.0) g/dL Hct 39.4 L (42-52) % MCV 102.1 H (80-100) fL MCH 35.0 H (25-34) pg MCHC 34.3 (32-36) g/dL RDW Std Deviation 48.5 H (36.4-46.3) fL RDW Coeff of Heather 13.1 (11.5-14.5) % Plt Count 127 L (130-400) K/uL MPV 10.1 (7.4-10.4) fL Immature Gran % (Auto) 0.0 % Neut % (Auto) 59.4 % Lymph % (Auto) 21.8 % Mccone % (Auto) 15.0 % Eos % (Auto) 3.0 % Baso % (Auto) 0.8 % Immature Gran # (Auto) 0.00 (0.00-0.02) K/uL Neut # (Auto) 2.38 (1.4-6.5) K/uL Lymph # (Auto) 0.87 L (1.2-3.4) K/uL Mccone # (Auto) 0.60 H (0.11-0.59) K/uL Eos # (Auto) 0.12 (0-0.5) K/uL Baso # (Auto) 0.03 (0-0.2) K/uL Sodium 138 (136-145) mmol/L Potassium 3.2 L (3.5-5.1) mmol/L Chloride 109 H (98-107) mmol/L Carbon Dioxide 22 (21-32) mmol/L Anion Gap 7.0 (3-11) BUN 21 H (7-18) mg/dl Creatinine 1.48 H (0.6-1.4) mg/dl Est Cr Clr Drug Dosing 71.2 ml/min Est GFR ( Amer) 63.5 Est GFR (Non-Af Amer) 54.8 BUN/Creatinine Ratio 14.1 (10-20) Glucose 127 H (70-99) mg/dl Calcium 9.9 (8.5-10.1) mg/dl Magnesium 2.0 (1.8-2.4) mg/dl Total Bilirubin 1.2 H (0.2-1) mg/dl AST 502 H (15-37) U/L ALT 143 H (12-78) U/L Alkaline Phosphatase 145 H (45-117) U/L Total Creatine Kinase 24088 H (39-308) U/L Total Protein 8.0 (6.4-8.2) gm/dl Albumin 3.5 (3.4-5.0) gm/dl Globulin 4.5 H (2.5-4.0) gm/dl Albumin/Globulin Ratio 0.8 L (0.9-2) TSH 2.710 (0.300-4.500) uIu/ml Urine Color Yellow Urine Appearance Clear (Clear) Urine pH 5.5 (4.5-7.5) Ur Specific [place] 1.016 (1.000-1.030) Urine Protein Negative (Negative) Urine Glucose (UA) Trace H (Negative) Urine Ketones Negative (Negative) Urine Blood 2+ H (Negative) Urine Nitrite Negative (Negative) Urine Bilirubin Negative (Negative) Urine Urobilinogen Negative (Negative) Ur Leukocyte Esterase Negative (Negative) Urine WBC (Auto) 1-5 (0-5) /hpf Urine RBC (Auto) 0-4 (0-4) /hpf U Hyaline Cast (Auto) 1-5 (0-5) /lpf U Epithel Cells (Auto) 5-10 H (0-5) /lpf Urine Bacteria (Auto) Negative (Negative) Urine Opiates Screen (Neg) Ur Methadone, Qual (Neg) Urine Barbiturates (Neg) Ur Phencyclidine (PCP) (Neg) U Amphetamin/Meth Scrn (Neg) MDMA (Ecstasy) Screen (Neg) U Benzodiazepines Scrn (Neg) Ur Cocaine Metabolite (Neg) U Marijuana (THC) Screen (Neg) 10/13/19 Range/Units 14:10 WBC (4.8-10.8) K/uL RBC (4.7-6.1) M/uL Hgb (14.0-18.0) g/dL Hct (42-52) % MCV (80-100) fL MCH (25-34) pg MCHC (32-36) g/dL RDW Std Deviation (36.4-46.3) fL RDW Coeff of Heather (11.5-14.5) % Plt Count (130-400) K/uL MPV (7.4-10.4) fL Immature Gran % (Auto) % Neut % (Auto) % Lymph % (Auto) % Mccone % (Auto) % Eos % (Auto) % Baso % (Auto) % Immature Gran # (Auto) (0.00-0.02) K/uL Neut # (Auto) (1.4-6.5) K/uL Lymph # (Auto) (1.2-3.4) K/uL Mccone # (Auto) (0.11-0.59) K/uL Eos # (Auto) (0-0.5) K/uL Baso # (Auto) (0-0.2) K/uL Sodium (136-145) mmol/L Potassium (3.5-5.1) mmol/L Chloride (98-107) mmol/L Carbon Dioxide (21-32) mmol/L Anion Gap (3-11) BUN (7-18) mg/dl Creatinine (0.6-1.4) mg/dl Est Cr Clr Drug Dosing ml/min Est GFR ( Amer) Est GFR (Non-Af Amer) BUN/Creatinine Ratio (10-20) Glucose (70-99) mg/dl Calcium (8.5-10.1) mg/dl Magnesium (1.8-2.4) mg/dl Total Bilirubin (0.2-1) mg/dl AST (15-37) U/L ALT (12-78) U/L Alkaline Phosphatase (45-117) U/L Total Creatine Kinase (39-308) U/L Total Protein (6.4-8.2) gm/dl Albumin (3.4-5.0) gm/dl Globulin (2.5-4.0) gm/dl Albumin/Globulin Ratio (0.9-2) TSH (0.300-4.500) uIu/ml Urine Color Urine Appearance (Clear) Urine pH (4.5-7.5) Ur Specific [place] (1.000-1.030) Urine Protein (Negative) Urine Glucose (UA) (Negative) Urine Ketones (Negative) Urine Blood (Negative) Urine Nitrite (Negative) Urine Bilirubin (Negative) Urine Urobilinogen (Negative) Ur Leukocyte Esterase (Negative) Urine WBC (Auto) (0-5) /hpf Urine RBC (Auto) (0-4) /hpf U Hyaline Cast (Auto) (0-5) /lpf U Epithel Cells (Auto) (0-5) /lpf Urine Bacteria (Auto) (Negative) Urine Opiates Screen Neg (Neg) Ur Methadone, Qual Neg (Neg) Urine Barbiturates Neg (Neg) Ur Phencyclidine (PCP) Neg (Neg) U Amphetamin/Meth Scrn Neg (Neg) MDMA (Ecstasy) Screen Neg (Neg) U Benzodiazepines Scrn Neg (Neg) Ur Cocaine Metabolite Neg (Neg) U Marijuana (THC) Screen Neg (Neg) Administered Medications Sodium Chloride (Nss 1000ml) 1,000 mls @ 125 mls/hr IV .Q8H SARA Stop: 10/13/19 20:29 Last Infusion: 10/13/19 14:33 Dose: 0 mls/hr Documented by: [id number] Admin: 10/13/19 13:00 Dose: 999 mls/hr Documented by: [id number] Discontinued Medications Sodium Chloride (Nss 1000ml) 1,000 mls @ 999 mls/hr IV .Q1H1M SARA Stop: 10/13/19 13:30 Last Infusion: 10/13/19 14:33 Dose: 0 mls/hr Documented by: [id number] Admin: 10/13/19 13:00 Dose: 999 mls/hr Documented by: [id number] Sodium Chloride (Nss 1000ml) 1,000 mls @ 999 mls/hr IV .Q1H1M ONE Stop: 10/13/19 16:13 Last Admin: 10/13/19 16:38 Dose: 125 mls/hr Documented by: [id number] ECG Data Attestation: I personally reviewed and interpreted this ECG as follows: Indication: + other (abnormal labs) Rate (beats per minute): 58 Rhythm: sinus bradycardia ECG Intervals/blocks: + Normal QRS ECG ST segments: no ST depression and no ST elevation ECG Findings: + Other (LVH); no PACs and no PVCs Blood Pressure Blood Pressure Findings: Elevated blood pressure Blood Pressure Disposition: further management by hospitalist Discharge Plan Visit Data Chief Complaint: Abnormal Labs/Diagnostic Testing Stated Complaint: ELEVATED CK LEVELS ED Provider: Ambrosio Swenson Discharge Problem: Rhabdomyolysis Patient Disposition: Being Evaluated by Hospitalist Forms Stand Alone Forms: My [facility] Prescriptions Prescriptions: No Action fluticasone propionate [Flonase Allergy Relief] 50 mcg/actuation spray,suspension 1 sprays intranasal BID PRN (Reason: Allergy Symptoms) Qty: 1 RF: 0 hydroxyzine HCl 25 mg tablet See Rx Instructions PO .qhs PRN (Reason: sleep) Qty: 60 RF: 1 multivitamin Tablet 1 tab PO QAM RF: 0 clopidogrel [Plavix] 75 mg Tablet 75 mg PO QAM RF: 0 nitroglycerin [Nitrostat] 0.4 mg Tablet, Sublingual 0.4 mg Sublingual UD PRN (Reason: CHEST PAINS) RF: 0 diltiazem HCl 120 mg Capsule,Extended Release 24hr 120 mg PO QAM RF: 0 omega 9-hmb-yik-fish oil [Fish Oil] 1,000 mg (120 mg-180 mg) Capsule 1,000 mg PO QAM RF: 0 docusate sodium [Colace] 100 mg Capsule 100 mg PO BID RF: 0 oxymetazoline [Afrin (oxymetazoline)] 0.05 % [place],Non-Aerosol 2 spray INTRANASAL Q12H PRN (Reason: Congestion) RF: 0 Diltiazem 2% Ointment 1 applic topical TID RF: 0 potassium chloride [Klor-Con M20] 20 mEq tablet,ER particles/crystals 20 meq PO QAM RF: 0 broccoli flower 500 mg Tablet 600 mg PO QAM RF: 0 aspirin 81 mg Tablet,Delayed Release (Dr/Ec) 81 mg PO QAM RF: 0 pantoprazole 40 mg tablet,delayed release (DR/EC) 40 mg PO QAM RF: 0 sertraline [Zoloft] 25 mg tablet 25 mg PO QAM RF: 0 cholecalciferol (vitamin D3) 50,000 unit capsule 50,000 units PO UD RF: 0 lidocaine 5 % ointment 1 appln TOP UD PRN (Reason: anal irritation) RF: 0 Referrals Referrals: Moise Drake DO [Primary Care Provider] - Discharge Problem: Rhabdomyolysis Qualifiers: Rhabdomyolysis type: non-traumatic Qualified Code(s): M62.82 - Rhabdomyolysis The scribe's documentation has been prepared under my direction and personally reviewed by me in its entirety. I confirm that the note above accurately reflects all work, treatment, procedures, and medical decision making performed by me.
[2019-10-13] MEDS ORDERED: NITROGLYCERIN SL 0.4 MG/TAB TAB SL PRN (20:03)
[2019-10-13] MEDS ORDERED: ACETAMINOPHEN 325 MG TAB PO PRN (20:03)
[2019-10-13] MEDS ORDERED: LIDOCAINE HCL 5% OINT 30 GM TUBE TOP PRN (20:03)
[2019-10-13] MEDS ORDERED: POLYETHYLENE (MIRALAX) 17 GM PACK PO PRN (20:03)
[2019-10-13] MEDS ORDERED: LORazepam 1 MG TAB PO PRN ×3 (20:03→20:45)
[2019-10-13] MEDS ORDERED: FLUTICASONE PROPIONATE NA SPR 16 GM BTL PRN (20:03)
[2019-10-13] MEDS: LACTATED RINGER'S 1,000 ML IV SCH (20:36)
[2019-10-13] MEDS: DOCUSATE SODIUM 100 MG CAP PO SCH (21:05)
--- NOTE | 2019-10-13 21:23 | Billing Data ---
Coding Level of Care Code 40463 Initial Inpt Care Lvl 2
[2019-10-13] MEDS: ZOLPIDEM TARTRATE 5 MG TAB PO PRN (22:37)
[2019-10-14] MEDS: LACTATED RINGER'S 1,000 ML IV SCH ×3 (03:28→18:04)
[2019-10-14] MEDS: dilTIAZem HCL 120 MG CAPCR PO SCH (07:45)
[2019-10-14] MEDS: DOCUSATE SODIUM 100 MG CAP PO SCH ×2 (07:46→21:07)
[2019-10-14] MEDS: ASPIRIN 81 MG ECTAB PO SCH (07:47)
[2019-10-14] MEDS: FOLIC ACID 1 MG TAB PO SCH (07:47)
[2019-10-14] MEDS: CLOPIDOGREL BISULFATE 75 MG TAB PO SCH (07:48)
[2019-10-14] MEDS: PANTOprazole 40 MG TAB PO SCH (07:48)
[2019-10-14] MEDS: POTASSIUM CHLORIDE 20 MEQ TABCR PO SCH (07:48)
[2019-10-14] MEDS: SERTRALINE HCL 50 MG TABLET PO SCH (07:49)
[2019-10-14] MEDS: THIAMINE HCL 100 MG TAB PO SCH (07:49)
[2019-10-14 08:32] LABS: Basophils # (auto) 0.03 K/uL (0-0.2); Basophils % (auto) 0.9 %; Eosinophils # (auto) 0.12 K/uL (0-0.5); Eosinophils % (auto) 3.6 %; Hemoglobin 12.5 g/dL (14.0-18.0); Lymphocytes # (auto) 0.88 K/uL (1.2-3.4); Lymphocytes % (auto) 26.4 %; Mean Corpuscular Hemoglobin 34.6 pg (25-34); Mean Corpuscular Hgb Conc 33.8 g/dL (32-36); Mean Corpuscular Volume 102.5 fL (80-100); Mean Platelet Volume 9.7 fL (7.4-10.4); Monocytes # (auto) 0.49 K/uL (0.11-0.59); Monocytes % (auto) 14.7 %; Neutrophils # (auto) 1.81 K/uL (1.4-6.5); Neutrophils % (auto) 54.4 %; Platelet Count 119 K/uL (130-400); RDW Coefficient of Variation 13.1 % (11.5-14.5); RDW Standard Deviation 48.9 fL (36.4-46.3); Red Blood Count 3.61 M/uL (4.7-6.1); White Blood Count 3.33 K/uL (4.8-10.8)
[2019-10-14 09:08] LABS: Albumin Level 3.1 gm/dl (3.4-5.0); BUN Creatinine Ratio 12.8 (10-20); Bilirubin Direct 0.5 mg/dl (0-0.2); Calcium 9.5 mg/dl (8.5-10.1); Est GFR (African American) 77.1; Est GFR (Non-African American) 66.5; Potassium 3.6 mmol/L (3.5-5.1)
[2019-10-14 09:40] LABS: Bilirubin,Total 1.2 mg/dl (0.2-1); Total Protein 7.2 gm/dl (6.4-8.2)
--- NOTE | 2019-10-14 11:25 | Hospitalist Progress Note ---
Date of Service October 14, 2019 Assessment & Plan (1) Rhabdomyolysis: unclear etiology CK climbed to 24k from a level of 6k when discharged 5 days prior renal function actually improved LFT elevated slightly but has a h/o such with his RUSSELL treated with aggressive IV fluids CK down to 8k today, Cr down to 1.2 making adequate urine nephrology following plan to repeat labs in the morning (2) MAE (acute kidney injury): Cr was quite elevated on prior admission improved on admission at 1.48, down to 1.26 today immunologic testing from last admission for vasculitis, auto immune disease was all negative continue IV fluids, repeat BMP in the AM at this point the MAE appears to be completely resolved (3) HLD (hyperlipidemia): holding statin since last admission due to rhabdomyolysis anti HMG CoA sent out last admission, don't see results back (4) Anal fissure: no current issues (5) Thrombocytopenia: stable at 119, due to RUSSELL (6) CAD (coronary artery disease): no chest pain (7) Anemia: Hb stable at 12.5 (8) S/P coronary artery stent placement: (9) RUSSELL (nonalcoholic steatohepatitis): follows with Pj has frequent rise and fall of LFT they are within normal ranges for him Subjective patient feeling well says he has felt well all week, no muscle pain, no muscle weakness if it were not for the elevated CK he does not see a reason to be in hospital CK down to 8k today from 24k yesterday Cr is improved to 1.2 from 1.4 making adequate urine appreciate nephrology consult, will continue aggressive IV fluids and repeat labs in the AM eating and drinking well, no complaints Review of Systems Review of Systems: All systems reviewed & are unremarkable except as noted in HPI & below Physical Exam Constitutional: WD/WN, vitals as above Eyes: PERRL, conjunctivae normal, anicteric sclerae ENMT: external ear and nose normal, oropharynx normal Neck: trachea midline, no thyromegaly Respiratory: normal respiratory effort, lungs clear to auscultation Cardiovascular: RRR, no murmur, no edema Gastrointestinal (Abdomen): normal bowel sounds, soft, nontender, no hepatosplenomegaly Musculoskeletal: no cyanosis or clubbing, extremities motor strength 5/5 Skin: no rashes, warm and dry Neurologic: patellar DTR's 2+ bilat, sensation intact and PERRL, EOMI, accommodation nl, no face palsy, no dysarthria Psychiatric: A+Ox3, euthymic affect Lymphatic: no cervical or axillary lymphadenopathy Results & Data Vital Signs (Past 12 Hours) Vital Signs Temp Pulse Resp BP BP Pulse Ox 10/14/19 07:22 36.5 C 51 L 18 143/82 H 95 10/14/19 04:55 36.6 C 52 L 18 127/62 96 Laboratory Results Laboratory Results - last 24 hr 10/13/19 10/13/19 10/13/19 13:08 13:08 14:10 WBC 4.00 L RBC 3.86 L Hgb 13.5 L Hct 39.4 L MCV 102.1 H MCH 35.0 H MCHC 34.3 RDW Std Deviation 48.5 H RDW Coeff of Heather 13.1 Plt Count 127 L MPV 10.1 Immature Gran % (Auto) 0.0 Neut % (Auto) 59.4 Lymph % (Auto) 21.8 [place] % (Auto) 15.0 Eos % (Auto) 3.0 Baso % (Auto) 0.8 Immature Gran # (Auto) 0.00 Neut # (Auto) 2.38 Lymph # (Auto) 0.87 L [place] # (Auto) 0.60 H Eos # (Auto) 0.12 Baso # (Auto) 0.03 Hypersegmented Neuts Sodium 138 Potassium 3.2 L Chloride 109 H Carbon Dioxide 22 Anion Gap 7.0 BUN 21 H Creatinine 1.48 H Est Cr Clr Drug Dosing 71.2 Est GFR ( Amer) 63.5 Est GFR (Non-Af Amer) 54.8 BUN/Creatinine Ratio 14.1 Glucose 127 H Calcium 9.9 Phosphorus Magnesium 2.0 Total Bilirubin 1.2 H Direct Bilirubin AST 502 H ALT 143 H Alkaline Phosphatase 145 H Total Creatine Kinase 17188 H Total Protein 8.0 Albumin 3.5 Globulin 4.5 H Albumin/Globulin Ratio 0.8 L TSH 2.710 Urine Color Yellow Urine Appearance Clear Urine pH 5.5 Ur Specific [place] 1.016 Urine Protein Negative Urine Glucose (UA) Trace H Urine Ketones Negative Urine Blood 2+ H Urine Nitrite Negative Urine Bilirubin Negative Urine Urobilinogen Negative Ur Leukocyte Esterase Negative Urine WBC (Auto) 1-5 Urine RBC (Auto) 0-4 U Hyaline Cast (Auto) 1-5 U Epithel Cells (Auto) 5-10 H Urine Bacteria (Auto) Negative Urine Opiates Screen Ur Methadone, Qual Urine Barbiturates Ur Phencyclidine (PCP) U Amphetamin/Meth Scrn MDMA (Ecstasy) Screen U Benzodiazepines Scrn Ur Cocaine Metabolite U Marijuana (THC) Screen 10/13/19 10/14/19 10/14/19 14:10 08:19 08:19 WBC 3.33 L RBC 3.61 L Hgb 12.5 L Hct 37.0 L MCV 102.5 H MCH 34.6 H MCHC 33.8 RDW Std Deviation 48.9 H RDW Coeff of Heather 13.1 Plt Count 119 L MPV 9.7 Immature Gran % (Auto) 0.0 Neut % (Auto) 54.4 Lymph % (Auto) 26.4 [place] % (Auto) 14.7 Eos % (Auto) 3.6 Baso % (Auto) 0.9 Immature Gran # (Auto) 0.00 Neut # (Auto) 1.81 Lymph # (Auto) 0.88 L [place] # (Auto) 0.49 Eos # (Auto) 0.12 Baso # (Auto) 0.03 Hypersegmented Neuts 1+ Sodium 141 Potassium 3.6 Chloride 112 H Carbon Dioxide 23 Anion Gap 6.0 BUN 16 Creatinine 1.26 Est Cr Clr Drug Dosing 84.0 Est GFR ( Amer) 77.1 Est GFR (Non-Af Amer) 66.5 BUN/Creatinine Ratio 12.8 Glucose 97 Calcium 9.5 Phosphorus Magnesium Total Bilirubin 1.2 H Direct Bilirubin 0.5 H AST 332 H ALT 118 H Alkaline Phosphatase 123 H Total Creatine Kinase 8161 H Total Protein 7.2 Albumin 3.1 L Globulin Albumin/Globulin Ratio TSH Urine Color Urine Appearance Urine pH Ur Specific [place] Urine Protein Urine Glucose (UA) Urine Ketones Urine Blood Urine Nitrite Urine Bilirubin Urine Urobilinogen Ur Leukocyte Esterase Urine WBC (Auto) Urine RBC (Auto) U Hyaline Cast (Auto) U Epithel Cells (Auto) Urine Bacteria (Auto) Urine Opiates Screen Neg Ur Methadone, Qual Neg Urine Barbiturates Neg Ur Phencyclidine (PCP) Neg U Amphetamin/Meth Scrn Neg MDMA (Ecstasy) Screen Neg U Benzodiazepines Scrn Neg Ur Cocaine Metabolite Neg U Marijuana (THC) Screen Neg 10/14/19 08:19 WBC RBC Hgb Hct MCV MCH MCHC RDW Std Deviation RDW Coeff of Heather Plt Count MPV Immature Gran % (Auto) Neut % (Auto) Lymph % (Auto) [place] % (Auto) Eos % (Auto) Baso % (Auto) Immature Gran # (Auto) Neut # (Auto) Lymph # (Auto) [place] # (Auto) Eos # (Auto) Baso # (Auto) Hypersegmented Neuts Sodium Potassium Chloride Carbon Dioxide Anion Gap BUN Creatinine Est Cr Clr Drug Dosing Est GFR ( Amer) Est GFR (Non-Af Amer) BUN/Creatinine Ratio Glucose Calcium Phosphorus 2.4 L Magnesium Total Bilirubin Direct Bilirubin AST ALT Alkaline Phosphatase Total Creatine Kinase Total Protein Albumin Globulin Albumin/Globulin Ratio TSH Urine Color Urine Appearance Urine pH Ur Specific [place] Urine Protein Urine Glucose (UA) Urine Ketones Urine Blood Urine Nitrite Urine Bilirubin Urine Urobilinogen Ur Leukocyte Esterase Urine WBC (Auto) Urine RBC (Auto) U Hyaline Cast (Auto) U Epithel Cells (Auto) Urine Bacteria (Auto) Urine Opiates Screen Ur Methadone, Qual Urine Barbiturates Ur Phencyclidine (PCP) U Amphetamin/Meth Scrn MDMA (Ecstasy) Screen U Benzodiazepines Scrn Ur Cocaine Metabolite U Marijuana (THC) Screen Medications Administered Current Inpatient Medications Acetaminophen (Tylenol) 650 mg PO Q4H PRN PRN Reason: Pain or Fever Stop: 11/12/19 20:02 Aspirin (Ecotrin Ectab) 81 mg PO [facility] Stop: 11/13/19 08:59 Last Admin: 10/14/19 07:47 Dose: 81 mg Documented by: Clopidogrel Bisulfate (Plavix) 75 mg PO [facility] Stop: 11/13/19 08:59 Last Admin: 10/14/19 07:48 Dose: 75 mg Documented by: Diltiazem HCl (Cardizem Cd) 120 mg PO [facility] Stop: 11/13/19 08:59 Last Admin: 10/14/19 07:45 Dose: Not Given Documented by: Docusate Sodium (Colace) 100 mg PO BID [facility] Stop: 11/12/19 20:59 Last Admin: 10/14/19 07:46 Dose: 100 mg Documented by: Fluticasone Propionate (Flonase) 1 sprays NA BID PRN PRN Reason: Allergy Symptoms Stop: 11/12/19 20:02 Folic Acid (Folvite) 1 mg PO QAM [facility] Stop: 11/13/19 08:59 Last Admin: 10/14/19 07:47 Dose: 1 mg Documented by: Lactated Ringer's (Lr) 1,000 mls @ 150 mls/hr IV .Q6H40M [facility] Stop: 11/12/19 20:02 Last Admin: 10/14/19 11:18 Dose: 150 mls/hr Documented by: Lidocaine (Xylocaine 5% Oint) 1 appln TOP UD PRN PRN Reason: anal irritation Stop: 11/12/19 20:02 Lorazepam (Ativan) 1 mg PO UD PRN; Protocol PRN Reason: EtoH Withdrawal AWSS 6-10 Miscellaneous (Order Awaiting Action) 1 ea N/A QS [facility] Stop: 11/13/19 00:00 Last Admin: 10/14/19 07:43 Dose: Not Given Documented by: Nitroglycerin (Nitrostat) 0.4 mg SL UD PRN PRN Reason: CHEST PAINS Stop: 11/12/19 20:02 Pantoprazole [facility]odium ([facility]ix) [facility] [place] Stop: 11/13/19 08:59 Last Admin: 10/14/19 07:48 Dose: 40 mg Documented by: Polyethylene Glycol (Miralax Powder Packet) 17 gm PO DAILY PRN PRN Reason: Constipation Stop: 11/12/19 20:02 Potassium Chloride (Klor-Con M20) [facility] meq [facility] [place] Stop: 11/13/19 08:59 Last Admin: 10/14/19 07:48 Dose: 20 meq Documented by: Sertraline HCl (Zoloft) [facility] [place] Stop: 11/13/19 08:59 Last Admin: 10/14/19 07:49 Dose: 25 mg Documented by: Thiamine HCl (Vitamin B-1) [facility] [place] Stop: 11/13/19 08:59 Last Admin: 10/14/19 07:49 Dose: 100 mg Documented by: Zolpidem Tartrate (Ambien) 5 mg PO HS PRN PRN Reason: Sleep Stop: 11/12/19 20:19 Last Admin: 10/13/19 22:37 Dose: 5 mg Documented by: PG Care Time/CCT Total # of Minutes Spent Total Time Spent with Patient: Total time spent is greater than 50% in coordination of care (as documented) at patient's floor/unit and/or counseling patient: (1) Rhabdomyolysis Rhabdomyolysis type: non-traumatic Qualified Code(s): M62.82 - Rhabdomyolysis
[2019-10-14] MEDS ORDERED: POT PHOSPHATE MONOBASIC W/ SOD TAB PO STA (11:57)
--- NOTE | 2019-10-14 12:00 | Nephrology Consultation ---
Date of Consultation October 14, 2019 Assessment & Plan (1) Rhabdomyolysis: Improving. Muscle compartments are all soft. Abdomen is benign. No alcohol or NSAIDs. Statin has been held. MAE resolving. PO4 replacement provided. Etiology likely related to persistent response to daptomycin in setting of renal insufficiency with inadequate fluid intake. (2) MAE (acute kidney injury): Improving with IVF. Continue LR at 150 ml/hr and repeat metabolic profile this afternoon. Document I/O's. (3) HLD (hyperlipidemia): Holding statin. anti HMG CoA sent out last admission. (4) CAD (coronary artery disease): (5) Anemia: Chronic, stable. (6) NORMAN (nonalcoholic steatohepatitis): LFTs slightly elevated but improving. History of Present Illness Reason for Consultation: rhabdomyolysis, MAE Requesting Physician: Jasper Montenegro DO Attending Physician: Jasper Montenegro DO History of Present Illness Mr. Paddy Calixto is a 49-year-old male with coronary artery disease, hyperlipidemia, hypertension, hepatic steatosis, history of alcohol abuse, osteoarthritis. The patient is know from prior recent admission to [facility]. Nephrology consultation provided today regarding elevated CPK and creatinine. The patient was seen and evaluated this morning with his at the bedside. He was referred to the ER yesterday from his PCP's office due to rising CK levels. [place] [address]. He feels well and denies any complaints. Paddy has not engaged in any physically strenuous activities since hospital discharge. His statin has been held. He denies NSAID use. He has not consumed alcohol. He denies any illicit drug or substance use. He denies pain. He as has persistent loose stool but this is improving. He is drinking plenty of fluids. His urine is clear. He has not had fevers or chills. Appetite is good. Medical history is notable for NSTEMI x 2 in the past. Paddy is status post stent to RCA and mid circumflex. He has hyperlipidemia, hypertension, hepatic steatosis (possibly Norman versus alcoholic given history). He was admitted on 10/05/2019 for 1 day history of diarrheal illness and found to have acute kidney injury with prior normal kidney function. On admission creatinine was 6.5 with metabolic acidosis, normal potassium. Diarrhea resolved, his renal function improved and he was discharged home with p.o. intake encouragement and nephrology follow-up. However his CPK remains elevated to 6000 on 10/09/2019 on the day of discharge of unknown etiology potential risk factors included receiving daptomycin on 10/05/2019. This continued to rise after discharge. An infusion of IV LR was [place] overnight[place] [address] to 8000. Creatinine improved from 1.48 to 1.26 mg/dL. Electrolytes are otherwise normal with a slightly low PO4 of 2.8. Allergies Allergy/AdvReac Type Severity Reaction Status Date / Time mushroom Allergy Severe ANAPHALYAXSIS, Verified 10/13/19 15:00 HIVES oxycodone Allergy Severe rash Verified 10/13/19 15:00 swelling, anaphylaxis Penicillins Allergy Severe Hives, Verified 10/13/19 15:00 swelling hydrocodone Allergy Intermediate SWELLING, Verified 10/13/19 15:00 HIVES codeine Allergy MO Hives, Verified 10/13/19 15:00 swelling Home Medications Home Medications Medication Instructions Recorded Confirmed Type clopidogrel [Plavix] 75 mg PO QAM 10/04/18 10/13/19 History diltiazem HCl 120 mg PO QAM 10/04/18 10/13/19 History multivitamin 1 tab PO QAM 10/04/18 10/13/19 History nitroglycerin [Nitrostat] 0.4 mg SUBLINGUAL UD PRN 10/04/18 10/13/19 History omega [id number]-fish oil [Fish Oil] 1,000 mg PO QAM 10/04/18 10/13/19 History fluticasone propionate 50 1 sprays INTRANASAL BID PRN #1 gm 06/20/19 10/13/19 History mcg/actuation nasal spray,suspension broccoli flower 600 mg PO QAM 09/14/19 10/13/19 History aspirin 81 mg PO QAM 10/05/19 10/13/19 History cholecalciferol (vitamin D3) 50,000 units PO UD 10/05/19 10/13/19 History lidocaine 1 appln TOP UD PRN 10/05/19 10/13/19 History pantoprazole 40 mg PO QAM 10/05/19 10/13/19 History sertraline [Zoloft] 25 mg PO QAM 10/05/19 10/13/19 History Diltiazem 2% Ointment 1 applic TOPICAL TID 10/13/19 10/13/19 History docusate sodium [Colace] 100 mg PO BID 10/13/19 10/13/19 History hydroxyzine HCl 25 mg tablet See Rx Instructions PO .qhs PRN 10/13/19 10/13/19 Rx #60 tab oxymetazoline [Afrin 2 spray INTRANASAL Q12H PRN 10/13/19 10/13/19 History (oxymetazoline)] potassium chloride [Klor-Con M20] 20 meq PO QAM 10/13/19 10/13/19 History Patient History Medical History Asthma MILD - NO INHALERS Bronchitis H/O Degenerative disc disease Depression NO MEDICATIONS CURRENTLY Diverticular disease Fatty liver GERD (gastroesophageal reflux disease) H/O esophageal spasm TAKES CARDIZEM H/O mitral valve prolapse HAS "GONE AWAY IN THE LAST 20 YEARS" Hemorrhoid Hypertension Myocardial Infarction Osteoarthritis Sleep apnea RECENT DIAGNOSIS -- NO MACHINE YET (CPAP) Surgical History History of cardiac cath MAY & JUNE 2018 AT [facility] JUN 2019 AT [facility] History of colonoscopy Done withing the last year. 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 Beliefs That Will Affect Care: None marital status: Current Living Situation: Spouse current occupational status: employed Other Information That Helps Us Care for You: No Feels Safe at Home: Yes Safety Concerns: Feels Safe At This Time Smoking Status: Former smoker Tobacco Type: cigarettes ; Age Quit Using Tobacco: 44 ; packs per day: 1 ; Do You Dip or Chew Tobacco: No ; Number of Years Since Quit: 4 ; Second Hand Exposure: No ; Hx Alcohol Use: Yes Alcohol type: beer Alcohol Intake Frequency: Weekly Alcohol Intake Frequency Comment: 2-3 week Hx Substance Use: No Dental Care, Regularly: Yes Physical Activity Frequency: Does not Exercise Review of Systems Review of Systems: All systems reviewed & are unremarkable except as noted in HPI & below Physical Exam Constitutional: well developed; no acute distress Eyes: no scleral abnormality and no corneal abnormality ENMT: Mouth: no oral mucosal abnormality and oral mucous membranes not dry Neck: normal visual inspection and trachea midline Respiratory: normal respiratory effort Auscultation: lungs clear to auscultation bilaterally Cardiovascular: Rate/Rhythm: regular rate Heart Sounds: normal S1 and normal S2 Extremities: no edema Musculoskeletal: Extremities: no cyanosis and no clubbing Skin: normal turgor; no lesions Neurologic: Motor/Sensory: no tremor and no asterixis Psychiatric: Orientation: alert and oriented x 3 Results & Data Vital Signs (Past 12 Hours) Vital Signs Temp Pulse Pulse Resp BP BP Pulse Ox 10/14/19 08:00 63 10/14/19 07:22 36.5 C 51 L 18 143/82 H 95 10/14/19 04:55 36.6 C 52 L 18 127/62 96 Laboratory Results Laboratory Results - last 24 hr 10/13/19 10/13/19 10/13/19 13:08 13:08 14:10 WBC 4.00 L RBC 3.86 L Hgb 13.5 L Hct 39.4 L MCV 102.1 H MCH 35.0 H MCHC 34.3 RDW Std Deviation 48.5 H RDW Coeff of Heather 13.1 Plt Count 127 L MPV 10.1 Immature Gran % (Auto) 0.0 Neut % (Auto) 59.4 Lymph % (Auto) 21.8 [place] % (Auto) 15.0 Eos % (Auto) 3.0 Baso % (Auto) 0.8 Immature Gran # (Auto) 0.00 Neut # (Auto) 2.38 Lymph # (Auto) 0.87 L [place] # (Auto) 0.60 H Eos # (Auto) 0.12 Baso # (Auto) 0.03 Hypersegmented Neuts Sodium 138 Potassium 3.2 L Chloride 109 H Carbon Dioxide 22 Anion Gap 7.0 BUN 21 H Creatinine 1.48 H Est Cr Clr Drug Dosing 71.2 Est GFR ( Amer) 63.5 Est GFR (Non-Af Amer) 54.8 BUN/Creatinine Ratio 14.1 Glucose 127 H Calcium 9.9 Phosphorus Magnesium 2.0 Total Bilirubin 1.2 H Direct Bilirubin AST 502 H ALT 143 H Alkaline Phosphatase 145 H Total Creatine Kinase 14790 H Total Protein 8.0 Albumin 3.5 Globulin 4.5 H Albumin/Globulin Ratio 0.8 L TSH 2.710 Urine Color Yellow Urine Appearance Clear Urine pH 5.5 Ur Specific [place] 1.016 Urine Protein Negative Urine Glucose (UA) Trace H Urine Ketones Negative Urine Blood 2+ H Urine Nitrite Negative Urine Bilirubin Negative Urine Urobilinogen Negative Ur Leukocyte Esterase Negative Urine WBC (Auto) 1-5 Urine RBC (Auto) 0-4 U Hyaline Cast (Auto) 1-5 U Epithel Cells (Auto) 5-10 H Urine Bacteria (Auto) Negative Urine Opiates Screen Ur Methadone, Qual Urine Barbiturates Ur Phencyclidine (PCP) U Amphetamin/Meth Scrn MDMA (Ecstasy) Screen U Benzodiazepines Scrn Ur Cocaine Metabolite U Marijuana (THC) Screen 10/13/19 10/14/19 10/14/19 14:10 08:19 08:19 WBC 3.33 L RBC 3.61 L Hgb 12.5 L Hct 37.0 L MCV 102.5 H MCH 34.6 H MCHC 33.8 RDW Std Deviation 48.9 H RDW Coeff of Heather 13.1 Plt Count 119 L MPV 9.7 Immature Gran % (Auto) 0.0 Neut % (Auto) 54.4 Lymph % (Auto) 26.4 [place] % (Auto) 14.7 Eos % (Auto) 3.6 Baso % (Auto) 0.9 Immature Gran # (Auto) 0.00 Neut # (Auto) 1.81 Lymph # (Auto) 0.88 L [place] # (Auto) 0.49 Eos # (Auto) 0.12 Baso # (Auto) 0.03 Hypersegmented Neuts 1+ Sodium 141 Potassium 3.6 Chloride 112 H Carbon Dioxide 23 Anion Gap 6.0 BUN 16 Creatinine 1.26 Est Cr Clr Drug Dosing 84.0 Est GFR ( Amer) 77.1 Est GFR (Non-Af Amer) 66.5 BUN/Creatinine Ratio 12.8 Glucose 97 Calcium 9.5 Phosphorus Magnesium Total Bilirubin 1.2 H Direct Bilirubin 0.5 H AST 332 H ALT 118 H Alkaline Phosphatase 123 H Total Creatine Kinase 8161 H Total Protein 7.2 Albumin 3.1 L Globulin Albumin/Globulin Ratio TSH Urine Color Urine Appearance Urine pH Ur Specific [place] Urine Protein Urine Glucose (UA) Urine Ketones Urine Blood Urine Nitrite Urine Bilirubin Urine Urobilinogen Ur Leukocyte Esterase Urine WBC (Auto) Urine RBC (Auto) U Hyaline Cast (Auto) U Epithel Cells (Auto) Urine Bacteria (Auto) Urine Opiates Screen Neg Ur Methadone, Qual Neg Urine Barbiturates Neg Ur Phencyclidine (PCP) Neg U Amphetamin/Meth Scrn Neg MDMA (Ecstasy) Screen Neg U Benzodiazepines Scrn Neg Ur Cocaine Metabolite Neg U Marijuana (THC) Screen Neg 10/14/19 08:19 WBC RBC Hgb Hct MCV MCH MCHC RDW Std Deviation RDW Coeff of Heather Plt Count MPV Immature Gran % (Auto) Neut % (Auto) Lymph % (Auto) [place] % (Auto) Eos % (Auto) Baso % (Auto) Immature Gran # (Auto) Neut # (Auto) Lymph # (Auto) [place] # (Auto) Eos # (Auto) Baso # (Auto) Hypersegmented Neuts Sodium Potassium Chloride Carbon Dioxide Anion Gap BUN Creatinine Est Cr Clr Drug Dosing Est GFR ( Amer) Est GFR (Non-Af Amer) BUN/Creatinine Ratio Glucose Calcium Phosphorus 2.4 L Magnesium Total Bilirubin Direct Bilirubin AST ALT Alkaline Phosphatase Total Creatine Kinase Total Protein Albumin Globulin Albumin/Globulin Ratio TSH Urine Color Urine Appearance Urine pH Ur Specific [place] Urine Protein Urine Glucose (UA) Urine Ketones Urine Blood Urine Nitrite Urine Bilirubin Urine Urobilinogen Ur Leukocyte Esterase Urine WBC (Auto) Urine RBC (Auto) U Hyaline Cast (Auto) U Epithel Cells (Auto) Urine Bacteria (Auto) Urine Opiates Screen Ur Methadone, Qual Urine Barbiturates Ur Phencyclidine (PCP) U Amphetamin/Meth Scrn MDMA (Ecstasy) Screen U Benzodiazepines Scrn Ur Cocaine Metabolite U Marijuana (THC) Screen PG Care Time/CCT Total # of Minutes Spent Total Time Spent with Patient: Total time spent is greater than 50% in coordination of care (as documented) at patient's floor/unit and/or counseling patient: (1) Rhabdomyolysis Rhabdomyolysis type: non-traumatic Qualified Code(s): M62.82 - Rhabdomyolysis
[2019-10-14 20:16] LABS: BUN Creatinine Ratio 13.6 (10-20); Calcium 9.3 mg/dl (8.5-10.1); Creatinine Clr Calc Pharmacy 83.3 ml/min; Est GFR (African American) 76.4; Est GFR (Non-African American) 65.9; Potassium 3.3 mmol/L (3.5-5.1)
[2019-10-14] MEDS: ZOLPIDEM TARTRATE 5 MG TAB PO PRN (22:44)
[2019-10-14] MEDS ORDERED: POTASSIUM CHLORIDE 20 MEQ TABCR PO STA (23:41)
[2019-10-15] MEDS: LACTATED RINGER'S 1,000 ML IV SCH ×4 (00:06→22:48)
[2019-10-15] MEDS: POTASSIUM CHLORIDE 20 MEQ TABCR PO SCH (07:33)
[2019-10-15] MEDS: CLOPIDOGREL BISULFATE 75 MG TAB PO SCH (07:33)
[2019-10-15] MEDS: DOCUSATE SODIUM 100 MG CAP PO SCH ×2 (07:33→21:10)
[2019-10-15] MEDS: SERTRALINE HCL 50 MG TABLET PO SCH (07:34)
[2019-10-15] MEDS: ASPIRIN 81 MG ECTAB PO SCH (07:34)
[2019-10-15] MEDS: FOLIC ACID 1 MG TAB PO SCH (07:34)
[2019-10-15] MEDS: THIAMINE HCL 100 MG TAB PO SCH (07:34)
[2019-10-15] MEDS: PANTOprazole 40 MG TAB PO SCH (07:34)
[2019-10-15] MEDS: dilTIAZem HCL 120 MG CAPCR PO SCH (07:35)
[2019-10-15 08:09] LABS: Albumin Level 2.8 gm/dl (3.4-5.0); BUN Creatinine Ratio 12.7 (10-20); Calcium 9.6 mg/dl (8.5-10.1); Creatinine Clr Calc Pharmacy 85.4 ml/min; Est GFR (African American) 78.6; Est GFR (Non-African American) 67.8; Potassium 3.7 mmol/L (3.5-5.1)
[2019-10-15 08:23] LABS: Phosphorus 2.8 mg/dl (2.5-4.9)
[2019-10-15] MEDS ORDERED: POT PHOSPHATE MONOBASIC W/ SOD TAB PO STA (10:24)
--- NOTE | 2019-10-15 10:36 | Nephrology Progress Note ---
Date of Service October 15, 2019 Assessment & Plan (1) Rhabdomyolysis: Etiology unclear but possibly related to daptomycin in setting of renal insufficiency, hypokalemia. Improving. Will stop IVF this AM and repeat labs this afternoon. Encourage oral fluids. No potentially contributory medications identified at this time. (2) MAE (acute kidney injury): Prerenal improved with IVF. (3) HLD (hyperlipidemia): Holding statin. anti HMG CoA sent out last admission. (4) CAD (coronary artery disease): (5) Anemia: Chronic, stable. (6) RUSSELL (nonalcoholic steatohepatitis): LFTs slightly elevated but improving in the setting of elevated CK and known history of RUSSELL and ETOH. The importance of avoiding alcohol at this time has been discussed in detail. (7) Vitamin D imbalance: Vitamin D excessive on admission. Corrected calcium remains excessive. Hold all vitamin D supplements. Unclear if this may have contributed to some of the patient's persistent laboratory abnormalities on admission. Subjective No acute events overnight. Paddy feels well this morning. He was seen and evaluated with his at the bedside. He would really like to go home today. He is tolerating IVF. He denies pain. He denies constipation. He feels well overall. Review of Systems Review of Systems: All systems reviewed & are unremarkable except as noted in HPI & below Physical Exam Constitutional: well developed; no acute distress Eyes: no scleral abnormality and no corneal abnormality ENMT: Mouth: no oral mucosal abnormality and oral mucous membranes not dry Neck: normal visual inspection and trachea midline Respiratory: normal respiratory effort Auscultation: lungs clear to auscultation bilaterally Cardiovascular: Rate/Rhythm: regular rate Heart Sounds: normal S1 and normal S2 Extremities: no edema Musculoskeletal: Extremities: no cyanosis and no clubbing Skin: normal turgor; no lesions Neurologic: Motor/Sensory: no tremor and no asterixis Psychiatric: Orientation: alert and oriented x 3 Results & Data Vital Signs (Past 12 Hours) Vital Signs Temp Pulse Pulse Resp BP Pulse Ox 10/15/19 07:30 36.4 C L 55 L 18 145/81 H 93 10/15/19 07:23 51 L 10/15/19 01:19 51 L 10/14/19 22:47 36.8 C 55 L 19 164/83 H 97 Laboratory Results Laboratory Results - last 24 hr 10/14/19 10/15/19 19:51 06:57 Sodium 140 142 Potassium 3.3 L 3.7 Chloride 111 H 113 H Carbon Dioxide 23 22 Anion Gap 6.0 8.0 BUN 17 16 Creatinine 1.27 1.24 Est Cr Clr Drug Dosing 83.3 85.4 Est GFR ( Amer) 76.4 78.6 Est GFR (Non-Af Amer) 65.9 67.8 BUN/Creatinine Ratio 13.6 12.7 Glucose 104 H 81 Calcium 9.3 9.6 Phosphorus 2.8 Total Creatine Kinase 5632 H 3320 H Albumin 2.8 L PG Care Time/CCT Total # of Minutes Spent Total Time Spent with Patient: Total time spent is greater than 50% in coordination of care (as documented) at patient's floor/unit and/or counseling patient: (1) Rhabdomyolysis Rhabdomyolysis type: non-traumatic Qualified Code(s): M62.82 - Rhabdomyolysis
[2019-10-15 15:20] LABS: BUN Creatinine Ratio 9.6 (10-20); Calcium 9.6 mg/dl (8.5-10.1); Creatinine Clr Calc Pharmacy 63.1 ml/min; Est GFR (African American) 54.5; Potassium 3.8 mmol/L (3.5-5.1)
--- NOTE | 2019-10-15 15:46 | Hospitalist Progress Note ---
Date of Service October 15, 2019 Assessment & Plan (1) Rhabdomyolysis: unclear etiology CK climbed to 24k from a level of 6k when discharged 5 days prior renal function actually improved at the time of admission LFT elevated slightly but has a h/o such with his RUSSELL treated with aggressive IV fluids CK down to 3300 and then 2700 this afternoon continue fluids at 150cc/hr making adequate urine nephrology following plan to repeat labs in the morning (2) MAE (acute kidney injury): Cr was quite elevated on prior admission initially Cr was improved at 1.2, up to 1.68 this afternoon, unclear why continue IV fluids and repeat in the morning immunologic testing from last admission for vasculitis, auto immune disease was all negative (3) HLD (hyperlipidemia): holding statin since last admission due to rhabdomyolysis anti HMG CoA sent out last admission, don't see results back (4) Anal fissure: no current issues (5) Thrombocytopenia: stable, due to RUSSELL (6) CAD (coronary artery disease): no chest pain (7) Anemia: Hb stable at 12.5 (8) S/P coronary artery stent placement: (9) RUSSELL (nonalcoholic steatohepatitis): follows with [facility] has frequent rise and fall of LFT they are within normal ranges for him (10) Hypercalcemia: corrected calcium in the 10.5 range will continue IV fluids to push Ca lower Subjective patient feeling well again today no muscle pain, no muscle weakness eating and drinking well labs this AM with Cr at 1.2, CK down to [address] Barrera, stopped fluids, encouraged PO fluid intake, repeat labs labs this afternoon show Cr up to 1.68, CK down at 2700, corrected calcium high, around 10.[address] Barrera, will resume IV fluids and repeat labs in the AM patient frustrated but okay with staying Review of Systems Review of Systems: All systems reviewed & are unremarkable except as noted in HPI & below Physical Exam Constitutional: WD/WN, vitals as above Eyes: PERRL, conjunctivae normal, anicteric sclerae ENMT: external ear and nose normal, oropharynx normal Neck: trachea midline, no thyromegaly Respiratory: normal respiratory effort, lungs clear to auscultation Cardiovascular: RRR, no murmur, no edema Gastrointestinal (Abdomen): normal bowel sounds, soft, nontender, no hepatosplenomegaly Musculoskeletal: no cyanosis or clubbing, extremities motor strength 5/5 Skin: no rashes, warm and dry Neurologic: patellar DTR's 2+ bilat, sensation intact and PERRL, EOMI, accommodation nl, no face palsy, no dysarthria Psychiatric: A+Ox3, euthymic affect Lymphatic: no cervical or axillary lymphadenopathy Results & Data Vital Signs (Past 12 Hours) Vital Signs Temp Pulse Pulse Resp BP Pulse Ox 10/15/19 14:46 58 L 10/15/19 07:30 36.4 C L 55 L 18 145/81 H 93 10/15/19 07:23 51 L Laboratory Results Laboratory Results - last 24 hr 10/14/19 10/15/19 10/15/19 19:51 06:57 14:54 Sodium 140 142 141 Potassium 3.3 L 3.7 3.8 Chloride 111 H 113 H 109 H Carbon Dioxide 23 22 24 Anion Gap 6.0 8.0 8.0 BUN 17 16 16 Creatinine 1.27 1.24 1.68 H D Est Cr Clr Drug Dosing 83.3 85.4 63.1 Est GFR ( Amer) 76.4 78.6 54.5 Est GFR (Non-Af Amer) 65.9 67.8 47.0 BUN/Creatinine Ratio 13.6 12.7 9.6 L Glucose 104 H 81 78 Calcium 9.3 9.6 9.6 Phosphorus 2.8 Total Creatine Kinase 5632 H 3320 H 2751 H Albumin 2.8 L Medications Administered Current Inpatient Medications Acetaminophen (Tylenol) 650 mg PO Q4H PRN PRN Reason: Pain or Fever Stop: 11/12/19 20:02 Aspirin (Ecotrin Ectab) 81 mg PO [facility] Stop: 11/13/19 08:59 Last Admin: 10/15/19 07:34 Dose: 81 mg Documented by: Clopidogrel Bisulfate (Plavix) 75 mg PO [facility] Stop: 11/13/19 08:59 Last Admin: 10/15/19 07:33 Dose: 75 mg Documented by: Diltiazem HCl (Cardizem Cd) 120 mg PO [facility] Stop: 11/13/19 08:59 Last Admin: 10/15/19 07:35 Dose: Not Given Documented by: Docusate Sodium (Colace) 100 mg PO BID [facility] Stop: 11/12/19 20:59 Last Admin: 10/15/19 07:33 Dose: 100 mg Documented by: Fluticasone Propionate (Flonase) 1 sprays NA BID PRN PRN Reason: Allergy Symptoms Stop: 11/12/19 20:02 Folic Acid (Folvite) 1 mg PO QAM [facility] Stop: 11/13/19 08:59 Last Admin: 10/15/19 07:34 Dose: 1 mg Documented by: Lactated Ringer's (Lr) 1,000 mls @ 150 mls/hr IV .Q6H40M [facility] Stop: 11/14/19 15:44 Lidocaine (Xylocaine 5% Oint) 1 appln TOP UD PRN PRN Reason: anal irritation Stop: 11/12/19 20:02 Lorazepam (Ativan) 1 mg PO UD PRN; Protocol PRN Reason: EtoH Withdrawal AWSS 6-10 Miscellaneous (Order Awaiting Action) 1 ea N/A QS [facility] Stop: 11/13/19 00:00 Last Admin: 10/15/19 15:27 Dose: Not Given Documented by: Nitroglycerin (Nitrostat) 0.4 mg SL UD PRN PRN Reason: CHEST PAINS Stop: 11/12/19 20:02 Pantoprazole [facility] ([facility]ix) [facility] Stop: 11/13/19 08:59 Last Admin: 10/15/19 07:34 Dose: 40 mg Documented by: Polyethylene Glycol (Miralax Powder Packet) 17 gm PO DAILY PRN PRN Reason: Constipation Stop: 11/12/19 20:02 Potassium Chloride (Klor-Con M20) 20 meq [facility] Stop: 11/13/19 08:59 Last Admin: 10/15/19 07:33 Dose: 20 meq Documented by: Sertraline HCl (Zoloft) [facility] Stop: 11/13/19 08:59 Last Admin: 10/15/19 07:34 Dose: 25 mg Documented by: Thiamine HCl (Vitamin B-1) 100 mg PO QAM [facility] Stop: 11/13/19 08:59 Last Admin: 10/15/19 07:34 Dose: 100 mg Documented by: Zolpidem Tartrate (Ambien) 5 mg PO HS PRN PRN Reason: Sleep Stop: 11/12/19 20:19 Last Admin: 10/14/19 22:44 Dose: 5 mg Documented by: PG Care Time/CCT Total # of Minutes Spent Total Time Spent with Patient: Total time spent is greater than 50% in coordination of care (as documented) at patient's floor/unit and/or counseling patient: (1) Rhabdomyolysis Rhabdomyolysis type: non-traumatic Qualified Code(s): M62.82 - Rhabdomyolysis
[2019-10-15] MEDS: ZOLPIDEM TARTRATE 5 MG TAB PO PRN (22:48)
[2019-10-16] MEDS: LACTATED RINGER'S 1,000 ML IV SCH ×2 (05:29→11:50)
[2019-10-16 07:22] LABS: Hematocrit (blood only) 35.1 % (42-52); Mean Corpuscular Hemoglobin 34.8 pg (25-34); Mean Corpuscular Hgb Conc 34.2 g/dL (32-36); Mean Corpuscular Volume 101.7 fL (80-100); Mean Platelet Volume 10.1 fL (7.4-10.4); Platelet Count 128 K/uL (130-400); RDW Coefficient of Variation 13.3 % (11.5-14.5); Red Blood Count 3.45 M/uL (4.7-6.1); White Blood Count 3.62 K/uL (4.8-10.8)
[2019-10-16] MEDS: THIAMINE HCL 100 MG TAB PO SCH (07:34)
[2019-10-16] MEDS: DOCUSATE SODIUM 100 MG CAP PO SCH (07:34)
[2019-10-16] MEDS: CLOPIDOGREL BISULFATE 75 MG TAB PO SCH (07:35)
[2019-10-16] MEDS: PANTOprazole 40 MG TAB PO SCH (07:35)
[2019-10-16] MEDS: SERTRALINE HCL 50 MG TABLET PO SCH (07:35)
[2019-10-16] MEDS: ASPIRIN 81 MG ECTAB PO SCH (07:35)
[2019-10-16] MEDS: FOLIC ACID 1 MG TAB PO SCH (07:35)
[2019-10-16] MEDS: POTASSIUM CHLORIDE 20 MEQ TABCR PO SCH (07:35)
[2019-10-16] MEDS: dilTIAZem HCL 120 MG CAPCR PO SCH (07:36)
[2019-10-16 07:43] LABS: Albumin Level 2.9 gm/dl (3.4-5.0); BUN Creatinine Ratio 12.2 (10-20); Calcium 9.9 mg/dl (8.5-10.1); Creatinine Clr Calc Pharmacy 84.7 ml/min; Est GFR (African American) 77.9; Est GFR (Non-African American) 67.2; Potassium 3.7 mmol/L (3.5-5.1)
[2019-10-16 07:57] LABS: Albumin Globulin Ratio 0.8 (0.9-2); Globulin 3.7 gm/dl (2.5-4.0); Total Protein 6.6 gm/dl (6.4-8.2)
--- NOTE | 2019-10-16 10:18 | Nephrology Progress Note ---
Date of Service October 16, 2019 Assessment & Plan (1) Rhabdomyolysis: -- Etiology unclear but possibly related to daptomycin in setting of renal insufficiency, hypokalemia. CPK is now < 2,000 -- Remains on IVF. Continue for now. Discussed importance of hydration following discharge from hospital. Advised sufficient free water to maintain clear urine (2) MAE (acute kidney injury): -- Resolved. Cr 1.2 this am. Electrolyte balance acceptable -- Patient reports missed appointment w/ Dr. Gallegos. Please schedule Nephrology follow up visit w/ Dr. Gallegos when hospital discharge is anticipated (3) HLD (hyperlipidemia): -- Holding statin -- Patient had been taking Broccoli supplement. Advised against using any supplement without [facility]PC seal (4) CAD (coronary artery disease): -- Quiescent (5) Anemia: -- Mild, asymptomatic. No acute indication for JONO (6) RUSSELL (nonalcoholic steatohepatitis): -- Reinforced importance of abstinence from alcohol Subjective Mr. aClixto was seen & examined in his hospital room this morning. He reports tolerating IVF without dyspnea or LE swelling. His UO has been brisk and his urine has been clear. Mr. Cailxto denies muscle tenderness or weakness. He is anxious to return home. Review of Systems Constitutional: no fever, no chills and no weakness Eyes: no worsening vision and no problem reported Ear, Nose, Mouth, Throat: no problem reported Respiratory: no cough and no dyspnea Cardiovascular: no chest pain, no palpitations and no edema Gastrointestinal: no abdominal pain, no nausea, no vomiting and no diarrhea/loose stools Genitourinary: no dysuria, no urinary hesitancy and no hematuria Musculoskeletal: no back pain Integumentary: no rash Neurologic: no falls, no dizziness and no confusion Physical Exam Constitutional: well developed, well nourished and healthy appearing Eyes: PERRL, conjunctivae normal, anicteric sclerae ENMT: external ear and nose normal, oropharynx normal Neck: trachea midline, no thyromegaly Respiratory: normal respiratory effort, lungs clear to auscultation Cardiovascular: Rate/Rhythm: regular rate and regular rhythm Heart Sounds: + murmur Extremities: no edema Gastrointestinal (Abdomen): normal bowel sounds, soft, nontender, no hepatosplenomegaly Musculoskeletal: Extremities: no cyanosis Skin: no rashes, warm and dry Neurologic: awake; not confused Results & Data Vital Signs (Past 12 Hours) Vital Signs Temp Pulse Pulse Resp BP Pulse Ox 10/16/19 07:24 53 L 10/16/19 07:00 36.6 C 55 L 20 151/84 H 94 10/16/19 01:08 57 L 10/15/19 22:46 36.8 C 67 18 156/85 H 96 Laboratory Results Laboratory Tests 10/16/19 10/16/19 06:42 06:42 WBC 3.62 L Hgb 12.0 L Hct 35.1 L Plt Count 128 L Sodium 142 Potassium 3.7 Chloride 112 H Carbon Dioxide 22 BUN 15 Creatinine 1.25 D Glucose 83 Calcium 9.9 AST 143 H ALT 92 H Alkaline Phosphatase 126 H Total Creatine Kinase 1315 H Albumin 2.9 L PG Care Time/CCT Total # of Minutes Spent Total Time Spent with Patient: Total time spent is greater than 50% in coordination of care (as documented) at patient's floor/unit and/or counseling patient: (1) Rhabdomyolysis Rhabdomyolysis type: non-traumatic Qualified Code(s): M62.82 - Rhabdomyolysis
--- NOTE | 2019-10-16 15:13 | Discharge Summary ---
Date of Service October 16, 2019 Admission HPI Per Admitting Provider 49-year-old male with history of NSTEMI x2, severe CAD status post stent to RCA and mid circumflex, hyperlipidemia, hypertension, hepatic steatosis (possibly Norman versus alcoholic given history) presents with elevated CK per PCP. Patient was admitted on 10/05/2019 for 1 day history of diarrheal illness and found to have acute kidney injury with prior normal kidney function. On admission creatinine was 6.5 with metabolic acidosis, normal potassium. Diarrhea resolved, his renal function improved and he was discharged home with p.o. intake encouragement and nephrology follow-up. However his CPK remains elevated to 6000 on 10/09/2019 on the day of discharge of unknown etiology potential risk factors included receiving daptomycin on 10/05/2019. Today patient reports feeling well however his PCP had checked labs and noted elevated CK of 11,000 and was told to come to the emergency room. He has anal fissures and reports occasional blood on toilet paper. Otherwise denies any fever, chills, chest pain, shortness of breath, headache, lightheadedness, nausea, vomiting, abdominal pain, diarrhea, constipation, hematochezia, melena dysuria, hematuria Patient denies marijuana or recreational drug use. Reports stopping alcohol 2- 1/2 weeks ago. Patient used to drink 3 mixed drinks on Wednesday and Wednesday. Quit smoking 4-1/2 years ago used to smoke for 28 years 1 pack/day 20 pack years Principal Diagnosis Rhabdomyolysis, Acute kidney injury Discharge Exam Constitutional WD/WN, vitals as above Eyes + anicteric sclerae ENMT external ear and nose normal, oropharynx normal Neck trachea midline, no thyromegaly Respiratory normal respiratory effort, lungs clear to auscultation Cardiovascular RRR, no murmur, no edema Gastrointestinal (Abdomen) normal bowel sounds, soft, nontender, no hepatosplenomegaly Musculoskeletal Extremities: extremities normal to inspection; no cyanosis and no clubbing Skin no rashes, warm and dry Neurologic moves all extremities and awake; no focal motor deficits Psychiatric A+Ox3, euthymic affect Discharge Data Allergies Allergy/AdvReac Type Severity Reaction Status Date / Time mushroom Allergy Severe ANAPHALYAXSIS, Verified 10/13/19 15:00 HIVES oxycodone Allergy Severe rash Verified 10/13/19 15:00 swelling, anaphylaxis Penicillins Allergy Severe Hives, Verified 10/13/19 15:00 swelling hydrocodone Allergy Intermediate SWELLING, Verified 10/13/19 15:00 HIVES codeine Allergy MO Hives, Verified 10/13/19 15:00 swelling Consultations 10/13/19 15:42 ED Decision to Admit Stat 10/14/19 07:48 Consult Nephrology Routine Hospital Course (1) Rhabdomyolysis: unclear etiology, but possible that was secondary to receiving a single dose of Daptomycin on admission last time in the setting of MAE and statin use caused the rhabdo CK climbed to 24k from a level of 6k when discharged 5 days prior and then was down to 1300 at the time of discharge after aggressive IVF hydration Renal function actually improved at the time of admission from previous LFT elevated slightly but has a h/o such with his NORMAN Stable for discharge and will have follow up labs in 2-3 days and see Nephrology and PCP within the week (2) MAE (acute kidney injury): Cr was quite elevated on prior admission initially Cr was improved at 1.2, up to 1.68 the day prior to discharge, but then back to 1.25 with further IVF hydration Encouraged copious po hydration after discharge -check BMP in 2-3 days as outpt immunologic testing from last admission for vasculitis, auto immune disease was all negative A 24 hour urine did have 2 gm of protein -Appreciate Nephrology consultation-he will f/u as planned with Nephrology as outpt (3) HLD (hyperlipidemia): holding statin since last admission due to rhabdomyolysis anti HMG CoA sent out last admission, don't see results back yet by the time of discharge-f/u as outpt (4) Anal fissure: no current issues (5) Thrombocytopenia: stable, due to NORMAN possibly Plts 128 day of dc (6) CAD (coronary artery disease): no chest pain -continue home ASA, Plavix, but holding statin as above due to rhabdo -too bradycardic for beta kip (7) Anemia: Hb stable at 12.0 (8) S/P coronary artery stent placement: with known CAD as above (9) NORMAN (nonalcoholic steatohepatitis): follows with [place] has frequent rise and fall of LFT they are within normal ranges for him -continue f/u with Hepatology at [place] (10) Hypercalcemia: corrected calcium here in the 10.5-10.7 range, not severely elevated -iPTH normal -his Vitamin D level was significantly elevated at 147 -his Vit D supplement and multivitamin should not be continued --please follow calcium levels as outpt (11) Hypervitaminosis D: Vit D level elevated at 147 -taking Vit D 46074 units "as directed" but unclear how often he is actually taking -dc Vit D supplement Dispo-stable for dc to home Total Time Total Time Spent Total Time Spent (In Minutes): 35 min Total Time Includes: Examination of the Patient, Discharge Planning, Medication Reconciliation and Communication With Other Providers (Nephrology) Discharge Plan Discharge Items Patient Disposition: Home - Self-Care Reason For Visit: RHABDOMYOLYSIS WITH MAE AND LIVER DYSFUNCTION Discharge Diagnosis: Acute kidney injury, Rhabdomyolysis Condition on Discharge: Good Health Concerns: You have been hospitalized for an acute medical problem. During your stay at [facility], we have made an effort to correct the problem that brought you to the hospital while keeping you as comfortable as possible. Please make sure you see your Primary Care Provider as part of your follow up plan. Activity: Resume your previous activity Lifting: Gradually increase as tolerated Bathing: No limitations Exercise/Sports: Gradually increase as tolerated Non-emergency contact: Primary Care Provider and Marketing Agent Call non-emergency contact if: you have any medication questions and your symptoms worsen Follow-up/Referrals: Dorothy Gallegos MD [Physician] - 10/24/19 11:00 am (follow up appointment with the kidney doctor) Moise Drake DO [Primary Care Provider] - 10/23/19 9:20 am (follow up appointment with your primary care physician) Diet: Heart Healthy Ambulatory Orders: Creatine Kinase (Routine) Timeframe: 3 Days Location: Determined by Patient Ordered By: Diann Harvey Comprehensive Metabolic Panel (Routine) Timeframe: 3 Days Location: Determined by Patient Ordered By: Diann Harvey Addtl Attending Provider Instructions: Please ensure you stay hydrated with plenty of water so that your urine remains pale in color. Please get labs drawn in 3-4 days to recheck your kidney function and muscle enzyme level. Please keep your follow up appointments with Dr. Gallegos and Dr. Drake as scheduled. Pending Studies at Discharge: No Stand-Alone Forms: My [facility] Medications and DC Order Prescriptions: Continued fluticasone propionate [Flonase Allergy Relief] 50 mcg/actuation spray,suspension 1 sprays intranasal BID PRN (Reason: Allergy Symptoms) Qty: 1 RF: 0 clopidogrel [Plavix] 75 mg Tablet 75 mg PO QAM RF: 0 nitroglycerin [Nitrostat] 0.4 mg Tablet, Sublingual 0.4 mg Sublingual UD PRN (Reason: CHEST PAINS) RF: 0 diltiazem HCl 120 mg Capsule,Extended Release 24hr 120 mg PO QAM RF: 0 omega [id number]-lik-fish oil [Fish Oil] 1,000 mg (120 mg-180 mg) Capsule 1,000 mg PO QAM RF: 0 docusate sodium [Colace] 100 mg Capsule 100 mg PO BID RF: 0 oxymetazoline [Afrin (oxymetazoline)] 0.05 % Zephyr,Non-Aerosol 2 spray INTRANASAL Q12H PRN (Reason: Congestion) RF: 0 Diltiazem 2% Ointment 1 applic topical TID RF: 0 potassium chloride [Klor-Con M20] 20 mEq tablet,ER particles/crystals 20 meq PO QAM RF: 0 aspirin 81 mg Tablet,Delayed Release (Dr/Ec) 81 mg PO QAM RF: 0 pantoprazole 40 mg tablet,delayed release (DR/EC) 40 mg PO QAM RF: 0 sertraline [Zoloft] 25 mg tablet 25 mg PO QAM RF: 0 lidocaine 5 % ointment 1 appln TOP UD PRN (Reason: anal irritation) RF: 0 Discontinued zolpidem 6.25 mg tablet,ext release multiphase 6.25 mg PO .qhs PRN (Reason: sleep) Qty: 10 RF: 0 hydroxyzine HCl 25 mg tablet See Rx Instructions PO .qhs PRN (Reason: sleep) Qty: 60 RF: 1 multivitamin Tablet 1 tab PO QAM RF: 0 broccoli flower 500 mg Tablet 600 mg PO QAM RF: 0 cholecalciferol (vitamin D3) 50,000 unit capsule 50,000 units PO UD RF: 0 Discharge Orders: Discharge Order (Routine); Ordered 10/16/19 Ordered By: Diann Harvey Admission Data Admit Date/Time: 10/13/19 18:20 Attending Provider: Tussey,Diann B. Admit Provider: Mariola Wallace Primary Care Provider: Moise Drake Other Providers: Mariola Wallace ; Oh Barrera Other Interventions: Discharge Summary Assessment (RN) Last Done: 10/16/19 15:46 DC Date/Time DO NOT enter until pt leaves facility: 10/16/19 15:58
--- NOTE | 2019-10-20 19:28 | Communication Note ---
Date of Service: October 20, 2019 I received this patient's BMP results in my inbox that he had drawn today after discharge. I called him to review the results. His creatinine has increased slightly to 1.5 from 1.25. He reports he has been drinking 2 gallons of water every day. I advised him to drink fluids that had some salts in them such as Gatorade in addition to the free water. I also advised him that his calcium level was back up and because his vitamin D level was so high from previous, advised him to completely discontinue his vitamin D supplement at this time. His CPK was normal and his LFTs were stable to improved. Otherwise, patient reported he was doing well, denied any leg swelling or other difficulties. Patient has an appointment with nephrology this coming Wednesday and will likely need repeat BMP at that time to ensure the creatinine is not continuing to rise again Patient understood all of his results and appreciated the phone call.
== END 2019-10-16 15:58 | disposition home or self-care (01) | DRG 683 ==
LOC: ED 12:00 → 2W 18:20 → SUATTDRO 18:20 → 2W 19:41

== ENCOUNTER 2020-07-08 15:47 | Inpatient (IN) ==
[2020-07-08 16:37] LABS: Hematocrit (blood only) 35.2 % (42-52); Hemoglobin 12.2 g/dL (14.0-18.0); Mean Corpuscular Hemoglobin 35.7 pg (25-34); Mean Corpuscular Hgb Conc 34.7 g/dL (32-36); Mean Corpuscular Volume 102.9 fL (80-100); Mean Platelet Volume 9.4 fL (7.4-10.4); Platelet Count 120 K/uL (130-400); RDW Coefficient of Variation 14.4 % (11.5-14.5); RDW Standard Deviation 54.1 fL (36.4-46.3); Red Blood Count 3.42 M/uL (4.7-6.1); White Blood Count 5.51 K/uL (4.8-10.8)
[2020-07-08 16:55] LABS: Alanine Aminotransferase 102 U/L (12-78); Albumin Level 4.1 gm/dl (3.4-5.0); Aspartate Aminotransferase 63 U/L (15-37); BUN Creatinine Ratio 11.5 (10-20); Blood Urea Nitrogen 33 mg/dl (7-18); Calcium 9.3 mg/dl (8.5-10.1); Carbon Dioxide 20 mmol/L (21-32); Chloride 109 mmol/L (98-107); Est GFR (African American) 28.5; Est GFR (Non-African American) 24.6; Glucose 93 mg/dl (70-99); Magnesium 2.3 mg/dl (1.8-2.4); Potassium 3.9 mmol/L (3.5-5.1); Sodium 140 mmol/L (136-145)
[2020-07-08 16:56] LABS: Partial Thromboplastin Time 28.2 Seconds (21.0-31.0); Prothrombin Time 10.9 Seconds (9.0-12.0)
[2020-07-08 16:58] LABS: Albumin Globulin Ratio 1.1 (0.9-2); Alkaline Phosphatase 87 U/L (45-117); Bilirubin,Total 0.7 mg/dl (0.2-1); Globulin 3.6 gm/dl (2.5-4.0); Total Protein 7.7 gm/dl (6.4-8.2)
[2020-07-08] MEDS ORDERED: SODIUM CHLORIDE 0.9% 500 ML IV ONE (18:53)
[2020-07-08 19:12] LABS: Creatine Kinase 65 U/L (39-308)
--- NOTE | 2020-07-08 19:16 | Emergency Department Note ---
History of Present Illness General Chief complaint: Neuro Symptoms/Deficit Stated complaint: left sided weakness, dizzy, blurry vison Time Seen by Provider: 07/08/20 18:33 Source: patient Mode of arrival: ambulatory Limitations: no limitations History of Present Illness Provider complaint: Dizziness This is a 49-year-old male who presents to the ED with a chief complaint of dizziness. The patient states that he has been having dizzy spells for the past couple of weeks. He states that it has been worse today. He also reports some vision issues in his right eye for the past couple of weeks. He also states th at he has tremors and some numbness in his hands. He reports a decreased appetite. He was seen by his PCP today. He states that his PCP was worried about MS and sent him here for further evaluation. Nothing makes his symptoms better or worse. The patient does report drinking alcohol daily. He states that he drinks 3 fingers with high of bourbon each night. He denies Tylenol use. Home Medications Home Medications Medication Instructions Recorded Confirmed Type nitroglycerin [Nitrostat] 0.4 mg SUBLINGUAL UD PRN 10/04/18 07/08/20 History aspirin 81 mg PO QAM 10/05/19 07/08/20 History clopidogrel 75 mg tablet 75 mg PO QAM #90 tab 11/14/19 07/08/20 Rx tamsulosin 0.4 mg capsule 0.4 mg PO DAILY #90 cap 01/26/20 07/08/20 Rx pantoprazole 40 mg tablet,delayed 40 mg PO QAM #30 tab 02/23/20 07/08/20 Rx release lidocaine 5 % topical ointment 1 appln TOP UD PRN #30 gm 03/28/20 07/08/20 Rx diltiazem HCl 120 mg 120 mg PO QAM #30 cap 04/23/20 07/08/20 Rx capsule,extended release 24 hr lisinopril 10 mg tablet 10 mg PO DAILY #90 tab 05/02/20 07/08/20 Rx fluticasone propionate 50 1 sprays INTRANASAL DAILY PRN #1 gm 06/03/20 07/08/20 History mcg/actuation nasal spray,suspension sertraline 50 mg tablet 50 mg PO QAM #30 tab 06/06/20 07/08/20 Rx propranolol 10 mg tablet 10 mg PO BID PRN #60 tab 06/07/20 07/08/20 Rx topiramate 50 mg tablet 50 mg PO DAILY 30 Days #30 tab 07/05/20 07/08/20 Rx Allergies Allergy/AdvReac Type Severity Reaction Status Date / Time mushroom Allergy Severe ANAPHALYAXSIS, Verified 07/08/20 15:02 HIVES oxycodone Allergy Severe rash Verified 07/08/20 15:02 swelling, anaphylaxis hydrocodone Allergy Intermediate SWELLING, Verified 07/08/20 15:02 HIVES codeine Allergy MO Hives, Verified 07/08/20 15:02 swelling doxycycline Allergy Unknown "CPK Verified 07/08/20 15:02 levels get out of whack" Past Med/Surg History Medical History Acute kidney injury (Acute) Asthma MILD - NO INHALERS Bronchitis H/O Degenerative disc disease Depression NO MEDICATIONS CURRENTLY Diverticular disease Fatty liver GERD (gastroesophageal reflux disease) H/O esophageal spasm TAKES CARDIZEM H/O mitral valve prolapse HAS "GONE AWAY IN THE LAST 20 YEARS" Hemorrhoid Hypertension Hypervitaminosis D Myocardial Infarction Osteoarthritis Sleep apnea RECENT DIAGNOSIS -- NO MACHINE YET (CPAP) Surgical History History of cardiac cath MAY & JUNE 2018 AT [facility] JUN 2019 AT [facility] History of colonoscopy Done withing the last year. History of esophagogastroduodenoscopy (EGD) History of heart valve replacement X2 STENTS (MAY AND JUNE 2018) AT [facility] History of neurologic surgery 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 Family History Grandfather Family history of esophageal cancer Mother Myocardial infarction Diabetes Hypertension Father Myocardial infarction Hypertension Grandfather (Maternal) Prostate cancer Brother Myocardial infarction Grandfather (Paternal) Myocardial infarction Grandmother (Paternal) Myocardial infarction Other Colon cancer Denies family history of Ovarian cancer Breast cancer Social History Smoking Status: Former smoker Age Quit Using Tobacco: 44; packs per day: 1; Number of Years Since Quit: 4; Second Hand Exposure: No; Hx Alcohol Use: Yes Alcohol type: beer Alcohol Intake Frequency Comment: 2-3 week Hx Substance Use: No Preferred Language: Turkmen Communication Ability: Effective Visual Impairment: No Limitations 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: Normal 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 Beliefs That Will Affect Care: None marital status: Current Living Situation: Spouse current occupational status: employed Feels Safe at Home: Yes Dental Care, Regularly: Yes Physical Activity Frequency: Does not Exercise Review of Systems A total of 10 systems reviewed and were otherwise negative Physical Exam Vital Signs Vital Signs - 24 hr 07/08/20 16:01 07/08/20 18:29 Temperature 36.6 C Temperature Source Oral Pulse Rate 66 Pulse Rate [Apical] 56 L Respiratory Rate 20 16 Blood Pressure 94/56 L Blood Pressure [Left Arm] 143/69 H Blood Pressure Mean 68 Blood Pressure Mean [Left Arm] 93 Pulse Oximetry 98 98 Oxygen Delivery Method Room Air Room Air Sepsis Recent Fever Within 48 Hours No Sepsis New/Unexplained Change in Mental Status No Sepsis Action Taken by Nursing No Action Required CONSTITUTIONAL/VITAL SIGNS: Reviewed / noted above. GENERAL: Non-toxic in appearance. INTEGUMENTARY: Warm, dry, and [place]. HEAD: Normocephalic. EYES: without scleral icterus or trauma. ENT/OROPHARYNX: clear and moist. LYMPHADENOPATHY/NECK: Is supple without lymphadenopathy or meningismus. RESPIRATORY: Lungs clear and equal. CARDIOVASCULAR: Regular rate and rhythm. GI/ABDOMEN: Soft and nontender. No organomegaly or pulsatile mass. No rebound or guarding. Normal bowel sounds. EXTREMITIES: Warm and well perfused. BACK: No CVA tenderness. NEUROLOGICAL: Intact without focal deficits. Patient does have tremors in his h ands. PSYCHIATRIC: normal affect. MUSCULOSKELETAL: Normally developed with good muscle tone. TRIAGE NURSING DOCUMENTATION REVIEWED. Course Administered Medications Sodium Chloride (Nss) 500 mls @ 999 mls/hr IV .Q31M ONE Stop: 07/08/20 19:23 Last Admin: 07/08/20 19:14 Dose: 999 mls/hr Documented by: [id number] Medical Decision Making Differential Diagnosis Differential includes acute coronary syndrome, myocardial infarction, CVA, TIA, anemia, infection, pneumonia, UTI, pyelonephritis, poor nutrition, dehydration, electrolyte disturbance,hypoglycemia. Medical Records Attestation: I reviewed the patient's medical records. Home Medications Current Medication List: was personally reviewed by me Laboratory Data Attestation: I reviewed the patient's lab results. Result diagrams: 07/08/20 16:20 07/08/20 16:20 Lab Results 07/08/20 07/08/20 07/08/20 Range/Units 16:20 16:20 16:20 WBC 5.51 (4.8-10.8) K/uL RBC 3.42 L (4.7-6.1) M/uL Hgb 12.2 L (14.0-18.0) g/dL Hct 35.2 L (42-52) % MCV 102.9 H (80-100) fL MCH 35.7 H (25-34) pg MCHC 34.7 (32-36) g/dL RDW Std Deviation 54.1 H (36.4-46.3) fL RDW Coeff of Heather 14.4 (11.5-14.5) % Plt Count 120 L (130-400) K/uL MPV 9.4 (7.4-10.4) fL PT 10.9 (9.0-12.0) Seconds INR 1.0 (0.9-1.1) APTT 28.2 (21.0-31.0) Seconds PTT Ratio 1.0 Sodium 140 (136-145) mmol/L Potassium 3.9 (3.5-5.1) mmol/L Chloride 109 H (98-107) mmol/L Carbon Dioxide 20 L (21-32) mmol/L Anion Gap 11.0 (3-11) BUN 33 H (7-18) mg/dl Creatinine 2.87 H (0.6-1.4) mg/dl Est Cr Clr Drug Dosing Not Reportable Est GFR ( Amer) 28.5 Est GFR (Non-Af Amer) 24.6 BUN/Creatinine Ratio 11.5 (10-20) Glucose 93 (70-99) mg/dl Calcium 9.3 (8.5-10.1) mg/dl Magnesium 2.3 (1.8-2.4) mg/dl Total Bilirubin 0.7 (0.2-1) mg/dl AST 63 H (15-37) U/L ALT 102 H (12-78) U/L Alkaline Phosphatase 87 (45-117) U/L Total Creatine Kinase 65 (39-308) U/L Total Protein 7.7 (6.4-8.2) gm/dl Albumin 4.1 (3.4-5.0) gm/dl Globulin 3.6 (2.5-4.0) gm/dl Albumin/Globulin Ratio 1.1 (0.9-2) ECG Data Attestation: I personally reviewed and interpreted this ECG as follows: Indication: + weakness Rate (beats per minute): 55 Rhythm: + sinus bradycardia ECG Intervals/blocks: + Normal QT-c ECG ST segments: no ST elevation ECG Findings: no PVCs MDM Narrative This is a 49-year-old male who presents to the ED with a chief complaint of dizzy spells that have been worsening over the past couple of weeks. He does drink alcohol daily although he reports that it is a small amount. Further details listed above. His vital signs here reveal hypertension. Other vital signs are unremarkable. His exam showed some tremors in his hands but otherwise no other acute abnormality. His CBC is normal. His BUN is 33 and his creatinine is 2.87. In December it was 1.02. His ALT is 102 and the AST is 63. An EKG shows a sinus bradycardia at a rate of 55. The patient was told the results of the test. He has had renal failure in the past. He states that it was related to doxycycline causing rhabdomyolysis. His total CK today was 65. Because of his acute renal failure, he will see the hospitalist for further patient evaluation and care. Impression & Plan Acute renal failure (ARF) Discharge Plan Visit Data Chief Complaint: Neuro Symptoms/Deficit Stated Complaint: left sided weakness, dizzy, blurry vison ED Provider: Oh Pelletier Discharge Problem: Acute renal failure (ARF) Patient Disposition: Being Evaluated by Hospitalist Forms Stand Alone Forms: [facility] Prescriptions Prescriptions: No Action clopidogrel [Plavix] 75 mg tablet 75 mg PO QAM Qty: 90 RF: 3 tamsulosin 0.4 mg capsule 0.4 mg PO DAILY Qty: 90 RF: 2 pantoprazole 40 mg tablet,delayed release (DR/EC) 40 mg PO QAM Qty: 30 RF: 5 lidocaine 5 % ointment 1 appln TOP UD PRN (Reason: anal irritation) Qty: 30 RF: 0 diltiazem HCl 120 mg capsule,extended release 24hr 120 mg PO QAM Qty: 30 RF: 5 lisinopril 10 mg tablet 10 mg PO DAILY Qty: 90 RF: 3 sertraline 50 mg tablet 50 mg PO QAM Qty: 30 RF: 5 propranolol 10 mg tablet 10 mg PO BID PRN (Reason: tremor) Qty: 60 RF: 0 topiramate 50 mg tablet 50 mg PO DAILY 30 Days Qty: 30 RF: 0 fluticasone propionate [Flonase Allergy Relief] 50 mcg/actuation spray,suspension 1 sprays intranasal DAILY PRN (Reason: Allergy Symptoms) Qty: 1 RF: 0 nitroglycerin [Nitrostat] 0.4 mg Tablet, Sublingual 0.4 mg Sublingual UD PRN (Reason: CHEST PAINS) RF: 0 aspirin 81 mg Tablet,Delayed Release (Dr/Ec) 81 mg PO QAM RF: 0 Referrals Referrals: Moise Drake DO [Primary Care Provider] -
--- NOTE | 2020-07-08 19:34 | XRay Report ---
XR chest 1V portable CLINICAL HISTORY: dizziness, SOB, blurry vision, left sided numbness COMPARISON STUDY: 01/18/2020 FINDINGS: The cardiac and mediastinal contours remain stable. There is no focal pulmonary consolidati on. There is no failure. There are no pleural effusions. There is minor elevation/eventration of the left hemidiaphragm. IMPRESSION: No active disease in the chest. ACT 112: Negative or not required by law. Electronically signed by: Yohannes Quinonez M.D. 07/08/2020 7:33 PM
--- NOTE | 2020-07-08 20:29 | History & Physical Report ---
Date of Service July 08, 2020 Assessment & Plan Admission and Anticipated Discharge Date Admission Date: Paddy Calixto is a 49 year old man with a past medical history significant for CAD with NSTEMI and stent placement in 2018, RUSSELL, hemochromatosis, rhabdomyolysis with hospitalization for acute renal failure in 2019, and Chiari malformation repaired many years ago presents today with dizziness, occasional blindness in his right eye and muscle weakness MAE No symptoms of obstruction, either intrinsic or pre renal Will treat as pre renal and give fluid now, 500 ml bolus in ED, 125 mls/hour NSS moving forward Will check CK with past history of Rhabdo and current MAE and muscle body tenderness Patient having orthostatic symptoms which could be indicative of a prerenal process Renal ultrasound last year negative, follows with Dr. Gallegos of nephrology WIll recheck BMP in am if not improving could consider intrinsic causes and further workup Neuro Symptoms Wide differential for global weakness, hyperreflexia, Concerning story of vision changes, but examines normally at present will check B12, Folate, TSH, electrolytes, Brain MRI no known tick bite but will check lyme, anaplasmosis, erlichiosis Does not appear to have any focal neuro symptoms at this time, Dizziness may be secondary to dehydration though patient tells me he drinks a large 40 oz water bottle or two every day. Will hold propranolol and diltiazem CAD Stable, no anginal or exertional symptoms Continuing home asa and clopidogrel, holding home lisinopril for acute renal injury. F/E/N: Heart Healthy diet Dispo: Admit for further workup, IV fluid rehydration and neuro evaluation DVT PPx: Heparin Full Code History of Present Illness Chief Complaint: Blurry vision, left sided weakness Primary Care Provider: Moise Drake DO Paddy Calixto is a 49 year old man with a past medical history significant for CAD with NSTEMI and stent placement in 2018, RUSSELL, hemochromatosis, rhabdomyolysis with hospitalization for acute renal failure in 2019, and Chiari malformation repaired many years ago presents today with dizziness, occasional blindness in his right eye and muscle weakness. He tells me he has been having dizziness, headaches and weakness for a few months that is getting worse particularly in the last week. He has a neurologist Dr. Crum who he sees for his tremor who placed him on topiramate and propranolol which he feels have made his tremor even worse. He has also developed a new symptom over the past few weeks of occasionally losing vision in his right eye. He says he can still see light and shape but not make anything out of his right eye. He also reports a ghost vision phenomenon of seeing his hand move by in a delayed way with one eye but not the other. He presented to his primary care provider earlier today who noticed worsening tremor, weakness he advised him to come into emergency department for evaluation. In ED patient was found to have MAE with creatinine elevated from 1.0 in December up to 2.87. He also appears to have a metabolic acidosis. AST and ALT are both elevated at 63 and 102 respectively they have both been chronically elevated in the past. He did not have any vision symptoms or sided weakness in ED but rather a global weakness. CXR negative. Was given 500 mls of NSS. He is a current drinker of alcohol, says he drinks a little over six fingers of bourbon a night, he is a former smoker with a 27 pack year smoking history no drug use. He tells me his appetite has been low, but usually a meat and potato diet, here with his . Full code Allergies Allergy/AdvReac Type Severity Reaction Status Date / Time mushroom Allergy Severe ANAPHALYAXSIS, Verified 07/08/20 15:02 HIVES oxycodone Allergy Severe rash Verified 07/08/20 19:26 swelling, anaphylaxis hydrocodone Allergy Intermediate SWELLING, Verified 07/08/20 15:02 HIVES codeine Allergy MO Hives, Verified 07/08/20 15:02 swelling doxycycline Allergy Unknown "CPK Verified 07/08/20 15:02 levels get out of whack" daptomycin AdvReac Rhabdomyoly Verified 07/08/20 19:36 sis Home Medications Home Medications Medication Instructions Recorded Confirmed Type nitroglycerin [Nitrostat] 0.4 mg SUBLINGUAL UD PRN 10/04/18 07/08/20 History aspirin 81 mg PO QAM 10/05/19 07/08/20 History clopidogrel 75 mg tablet 75 mg PO QAM #90 tab 11/14/19 07/08/20 Rx tamsulosin 0.4 mg capsule 0.4 mg PO DAILY #90 cap 01/26/20 07/08/20 Rx pantoprazole 40 mg tablet,delayed 40 mg PO QAM #30 tab 02/23/20 07/08/20 Rx release lidocaine 5 % topical ointment 1 appln TOP UD PRN #30 gm 03/28/20 07/08/20 Rx diltiazem HCl 120 mg 120 mg PO QAM #30 cap 04/23/20 07/08/20 Rx capsule,extended release 24 hr lisinopril 10 mg tablet 10 mg PO DAILY #90 tab 05/02/20 07/08/20 Rx fluticasone propionate 50 1 sprays INTRANASAL DAILY PRN #1 gm 06/03/20 07/08/20 History mcg/actuation nasal spray,suspension sertraline 50 mg tablet 50 mg PO QAM #30 tab 06/06/20 07/08/20 Rx topiramate 50 mg tablet 50 mg PO DAILY 30 Days #30 tab 07/05/20 07/08/20 Rx propranolol 5 mg PO DAILY PRN 07/08/20 07/08/20 History Past Med/Surg History Medical History Acute kidney injury (Acute) Asthma MILD - NO INHALERS Bronchitis H/O Degenerative disc disease Depression NO MEDICATIONS CURRENTLY Diverticular disease Fatty liver GERD (gastroesophageal reflux disease) H/O esophageal spasm TAKES CARDIZEM H/O mitral valve prolapse HAS "GONE AWAY IN THE LAST 20 YEARS" Hemorrhoid Hypertension Hypervitaminosis D Myocardial Infarction Osteoarthritis Sleep apnea RECENT DIAGNOSIS -- NO MACHINE YET (CPAP) Surgical History History of cardiac cath MAY & JUNE 2018 AT [facility] JUN 2019 AT [facility] History of colonoscopy Done withing the last year. History of esophagogastroduodenoscopy (EGD) History of heart valve replacement X2 STENTS (MAY AND JUNE 2018) AT [facility] History of neurologic surgery 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 Family History Grandfather Family history of esophageal cancer Mother Myocardial infarction Diabetes Hypertension Father Myocardial infarction Hypertension Grandfather (Maternal) Prostate cancer Brother Myocardial infarction Grandfather (Paternal) Myocardial infarction Grandmother (Paternal) Myocardial infarction Other Colon cancer Denies family history of Ovarian cancer Breast cancer Social History Smoking Status: Former smoker Age Quit Using Tobacco: 44; packs per day: 1; Smoking End Date: 5 years ago; Number of Years Since Quit: 4; Second Hand Exposure: No; Do You Dip or Chew Tobacco: No; Hx Alcohol Use: Yes Alcohol type: hard liquor Alcohol Intake Frequency Comment: 2-3 week Hx Substance Use: No Preferred Language: Yoruba Communication Ability: Effective Visual Impairment: No Limitations 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: Normal Psychiatric Security Nurse Required: No Beliefs That Will Affect Care: None marital status: Current Living Situation: Spouse current occupational status: employed Other Information That Helps Us Care for You: No Feels Safe at Home: Yes Safety Concerns: Feels Safe At This Time Dental Care, Regularly: Yes Physical Activity Frequency: Does not Exercise Review of Systems Constitutional: + fatigue and + weakness; no fever and no chills Eyes: as per Subjective / HPI and + decreased night vision; no blind spots, no diplopia, no loss of peripheral vision, no photophobia and no spots in vision Ear, Nose, Mouth, Throat: no problem reported Respiratory: no cough, no dyspnea, no dyspnea on exertion, no wheezing and no problem reported Cardiovascular: no chest pain, no dyspnea, no orthopnea, no lightheadedness, no syncope, no edema and no calf pain Gastrointestinal: no abdominal pain, no nausea, no vomiting, no blood in stool s and no melena Genitourinary: no dysuria, no difficulty urinating and no urinary frequency Musculoskeletal: + muscle weakness Neurologic: + unsteadiness, + tremor(s) and + headache(s); no gait abnormality, no seizure-like activity and no syncope Physical Exam Constitutional: well developed, well nourished and + well hydrated; no acute distress, not ill appearing and no altered mental status Eyes: PERRL, conjunctivae normal, anicteric sclerae normal accommodation; no scleral abnormality ENMT: external ear and nose normal, oropharynx normal Neck: trachea midline, no thyromegaly Respiratory: normal respiratory effort, lungs clear to auscultation Cardiovascular: RRR, no murmur, no edema Heart Sounds: no click, no gallop and no cardiac rub Vessels: normal peripheral pulses Gastrointestinal (Abdomen): normal bowel sounds, soft, nontender, no hepatosplenomegaly Musculoskeletal: no cyanosis or clubbing, extremities motor strength 5/5 Neurologic: CN's II-XI intact bilaterally and moves all extremities; no focal motor deficits Speech / Cognition: normal speech Motor/Sensory: + tremor Deep tendon reflexes exaggerated, 3+ globally, able to exhibit clonus in bilateral feet. Tremor at all times with any moving muscle including eye lids, arms, legs. Results & Data Results & Data ([facility]) Vital Signs (Past 12 Hours) Vital Signs Temp Pulse Pulse Resp BP BP Pulse Ox 07/08/20 20:10 59 L 20 95 07/08/20 20:01 63 29 H 96 07/08/20 20:00 54 L 21 145/75 H 98 07/08/20 19:50 64 21 99 07/08/20 19:40 55 L 15 98 07/08/20 19:38 53 L 23 145/74 H 99 07/08/20 19:30 58 L 22 98 07/08/20 19:20 64 23 96 07/08/20 19:10 58 L 22 99 07/08/20 19:00 52 L 24 97 07/08/20 18:50 57 L 18 98 07/08/20 18:40 55 L 22 97 07/08/20 18:39 52 L 17 97 07/08/20 18:29 56 L 16 143/69 H 98 07/08/20 18:27 51 L 18 143/69 H 98 07/08/20 16:01 36.6 C 66 20 94/56 L 98 Supervising Physician Co-Signing Physician Notes Attending addendum: I have physically seen this patient, have supervised the medical residents activities, and agree with the H&P unless as otherwise noted. Assessment and Plan: Acute kidney injury- Creatinine 2.87 upon admission, with range 1.02-1.68. Hold lisinopril for now. Received 500 cc normal saline in the ED, and will continue 125 mL's per hour. Recheck laboratories in the a.m. CAD/HTN/Stented coronary arteries x 2- continue ASA and clopidogrel BPH with LUTS- hold tamsulosin due to retrograde ejaculation and orthostasis issues. Neuro symptoms- check lyme, ehrlichiosis and anaplasmosis order brain MRI orthostatic component would improve with holding tamsulosin and propranolol. Remaining orders and notations as noted Resident Activity Tracking Resident Involvement: Resident Care Provided Care Provided: [facility] Medicine
[2020-07-08] MEDS ORDERED: NITROGLYCERIN SL 0.4 MG/TAB TAB SL PRN (21:42)
[2020-07-08] MEDS ORDERED: MULTI-VITAMIN INFUSION 10 ML, THIAMINE HCL 100 MG, FOLIC ACID 1 MG in SODIUM CHLORIDE 0... IV ONE (21:42)
[2020-07-08] MEDS ORDERED: POLYETHYLENE (MIRALAX) 17 GM PACK PO PRN (21:42)
[2020-07-08] MEDS ORDERED: LIDOCAINE HCL 5% OINT 30 GM TUBE TOP PRN (21:42)
[2020-07-08] MEDS ORDERED: FLUTICASONE PROPIONATE NA SPR 16 GM BTL PRN (21:42)
[2020-07-08 23:03] LABS: Folate (Folic Acid) 17.39 ng/ml (>5.38)
[2020-07-08] MEDS: SODIUM CHLORIDE 0.9% 1000ML 1,000 ML IV SCH (23:42)
[2020-07-08 23:44] LABS: Lyme Ab IgM w/WB Rflx Negative (Negative)
[2020-07-08 23:45] LABS: Lyme Ab IgG w/WB Rflx Negative (Negative)
[2020-07-08] MEDS ORDERED: LORazepam 0.5 MG TAB PO PRN (23:54)
[2020-07-08] MEDS ORDERED: LORazepam 0.5 MG TAB PO STA (23:54)
[2020-07-09] MEDS: ENOXAPARIN INJ 40 MG/0.4 ML SYR SQ SCH ×2 (00:55→21:48)
[2020-07-09] MEDS ORDERED: LORazepam 1 MG/2 ML VIAL IV PRN (02:55)
--- NOTE | 2020-07-09 07:32 | Magnetic Resonance Report ---
Brain MRI WITHOUT CONTRAST HISTORY: Weakness, vision changes, tremor, TECHNIQUE: Multiplanar multisequence MRI of the brain was performed without the use of contrast. COMPARISON STUDY: Brain MRI 01/11/2019. FINDINGS: There are no areas of restricted diffusion to suggest acute infarction. The midline structu res are intact. The paranasal sinuses are clear. The mastoid air cells are clear. The ventricles and sulci are within normal limits for age. There is no mass, hematoma, midline shift. The major vascular flow-voids at the skull base are well maintained. IMPRESSION: No acute intracranial abnormality. ACT 112: Negative or not required by law. Electronically signed by: Paddy Lucero M.D. 07/09/2020 7:30 AM
[2020-07-09] MEDS: SODIUM CHLORIDE 0.9% 1000ML 1,000 ML IV SCH (07:49)
[2020-07-09 08:50] LABS: Hematocrit (blood only) 32.1 % (42-52); Hemoglobin 11.1 g/dL (14.0-18.0); Mean Corpuscular Hemoglobin 35.4 pg (25-34); Mean Corpuscular Volume 102.2 fL (80-100); RDW Standard Deviation 52.1 fL (36.4-46.3); Red Blood Count 3.14 M/uL (4.7-6.1); White Blood Count 4.43 K/uL (4.8-10.8)
[2020-07-09] MEDS ORDERED: TOPIRAMATE 50 MG TAB PO SCH (09:00)
[2020-07-09] MEDS ORDERED: CLOPIDOGREL BISULFATE 75 MG TAB PO SCH (09:00)
[2020-07-09] MEDS ORDERED: SERTRALINE HCL 50 MG TABLET PO SCH (09:00)
[2020-07-09] MEDS ORDERED: ASPIRIN 81 MG ECTAB PO SCH (09:00)
[2020-07-09] MEDS ORDERED: TAMSULOSIN HCL 0.4 MG CAP PO SCH (09:00)
[2020-07-09] MEDS ORDERED: PANTOprazole 40 MG TAB PO SCH (09:00)
[2020-07-09 09:16] LABS: BUN Creatinine Ratio 22.5 (10-20); Calcium 8.4 mg/dl (8.5-10.1); Creatinine Clr Calc Pharmacy 78.1 ml/min; Est GFR (African American) 69.1; Est GFR (Non-African American) 59.6; Potassium 4.2 mmol/L (3.5-5.1)
[2020-07-09 09:20] LABS: Basophils # (auto) 0.01 K/uL (0-0.2); Basophils % (auto) 0.2 %; Eosinophils # (auto) 0.13 K/uL (0-0.5); Eosinophils % (auto) 2.9 %; Lymphocytes # (auto) 1.21 K/uL (1.2-3.4); Lymphocytes % (auto) 27.3 %; Mean Corpuscular Hgb Conc 34.6 g/dL (32-36); Mean Platelet Volume 8.8 fL (7.4-10.4); Monocytes # (auto) 0.56 K/uL (0.11-0.59); Monocytes % (auto) 12.6 %; Neutrophils # (auto) 2.52 K/uL (1.4-6.5); Platelet Count 88 K/uL (130-400); Platelet Estimate Decreased (Normal)
--- NOTE | 2020-07-09 11:03 | Neurology Consultation ---
Date of Consultation July 09, 2020 Assessment & Plan (1) Benign essential tremor: This patient has a history of benign essential tremor. He has not tolerated propranolol dosage increases previously and this medication is currently on hold. He seems to be having some difficulty tolerating topiramate that was started for his tremor 3 months ago as well. At this point I would recommend discontinuing the topiramate. At this point, I will hold off on starting another medication for his tremor. However, I may consider a trial of either primidone or gabapentin going forward, depending on his clinical status. Either of these medications could potentially be started in the outpatient setting. (2) Episode of visual loss of right eye: This patient does report experiencing multiple episodes of painless vision loss to the right eye over the past few weeks. Explicitly denies the perception of a shade or darkness coming over the eye. I am not really certain if the episodes are consistent with amaurosis fugax. Ocular pathology not excluded. The patient informs me that he has an appointment tomorrow with Dr. Milligan, ophthalmology, which is appropriate. I would like him to have a carotid ultrasound as well as MR angiography of the head and neck completed during this hospitalization, however. There is no evidence of stroke, multiple sclerosis, Parkinson's disease, or other significant neurological process in this patient. He does appear to have dehydration and acute kidney injury. He has endorsed daily alcohol/hard liquor consumption. However, to what extent alcohol use/withdrawal could be contributing to his current presentation is not clear. He is tremulous, anxious, and somewhat diaphoretic appearing. It may be delgado to monitor for alcohol withdrawal. Please contact me if I may be of further assistance. History of Present Illness Reason for Consultation: Weakness, hyperreflexia, tremor Requesting Physician: Epi Nuñez MD Attending Physician: Cristino Shirley MD History of Present Illness The patient is a 49-year-old male who is known to me, he was last seen in neurology clinic on April 02, 2020 for ongoing management of a chronic bilateral upper extremity, left greater than right postural and action tremor. He has been on propranolol for his tremor but has not tolerated dosage escalation. I had recommended starting a trial of topiramate for his tremor at his last appointment. The patient indicates that his tremor has not significantly improved with the addition of topiramate to his medication regimen. He also reports experiencing generalized tingling/paresthesias of the limbs since starting the medication as well as some increased dizziness lately. He is also complained of mild difficulty with concentration and word finding difficulty previously. He has a history of obstructive sleep apnea, chronic insomnia, coronary artery disease, hemochromatosis, [place], and remote Chiari I malformation decompressive surgery. He presented to the emergency department yesterday complaining of dizziness, weakness, and episodic vision loss affecting the right eye for the past few weeks. He informs me that he has an appointment with Dr. Delgado, ophthalmology, tomorrow. He expressed some concern as to whether or not his symptoms could be related to multiple sclerosis. A brain MRI completed overnight was normal and described in further detail below. He was admitted w ith a diagnosis of acute kidney injury likely related to dehydration. His propranolol and diltiazem have been held. Allergies Allergy/AdvReac Type Severity Reaction Status Date / Time mushroom Allergy Severe ANAPHALYAXSIS, Verified 07/08/20 15:02 HIVES oxycodone Allergy Severe rash Verified 07/08/20 19:26 swelling, anaphylaxis hydrocodone Allergy Intermediate SWELLING, Verified 07/08/20 15:02 HIVES codeine Allergy MO Hives, Verified 07/08/20 15:02 swelling doxycycline Allergy Unknown "CPK Verified 07/08/20 15:02 levels get out of whack" daptomycin AdvReac Rhabdomyoly Verified 07/08/20 19:36 sis Home Medications Home Medications Medication Instructions Recorded Confirmed Type nitroglycerin [Nitrostat] 0.4 mg SUBLINGUAL UD PRN 10/04/18 07/08/20 History aspirin 81 mg PO QAM 10/05/19 07/08/20 History clopidogrel 75 mg tablet 75 mg PO QAM #90 tab 11/14/19 07/08/20 Rx tamsulosin 0.4 mg capsule 0.4 mg PO DAILY #90 cap 01/26/20 07/08/20 Rx pantoprazole 40 mg tablet,delayed 40 mg PO QAM #30 tab 02/23/20 07/08/20 Rx release lidocaine 5 % topical ointment 1 appln TOP UD PRN #30 gm 03/28/20 07/08/20 Rx diltiazem HCl 120 mg 120 mg PO QAM #30 cap 04/23/20 07/08/20 Rx capsule,extended release 24 hr lisinopril 10 mg tablet 10 mg PO DAILY #90 tab 05/02/20 07/08/20 Rx fluticasone propionate 50 1 sprays INTRANASAL DAILY PRN #1 gm 06/03/20 07/08/20 History mcg/actuation nasal spray,suspension sertraline 50 mg tablet 50 mg PO QAM #30 tab 06/06/20 07/08/20 Rx topiramate 50 mg tablet 50 mg PO DAILY 30 Days #30 tab 07/05/20 07/08/20 Rx propranolol 5 mg PO DAILY PRN 07/08/20 07/08/20 History Patient History Medical History Acute kidney injury (Acute) Asthma MILD - NO INHALERS Bronchitis H/O Degenerative disc disease Depression NO MEDICATIONS CURRENTLY Diverticular disease Fatty liver GERD (gastroesophageal reflux disease) H/O esophageal spasm TAKES CARDIZEM H/O mitral valve prolapse HAS "GONE AWAY IN THE LAST 20 YEARS" Hemorrhoid Hypertension Hypervitaminosis D Myocardial Infarction Osteoarthritis Sleep apnea RECENT DIAGNOSIS -- NO MACHINE YET (CPAP) Surgical History History of cardiac cath MAY & JUNE 2018 AT [facility] JUN 2019 AT [facility] History of colonoscopy Done withing the last year. History of esophagogastroduodenoscopy (EGD) History of heart valve replacement X2 STENTS (MAY AND JUNE 2018) AT [facility] History of neurologic surgery 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 Family History Grandfather Family history of esophageal cancer Mother Myocardial infarction Diabetes Hypertension Father Myocardial infarction Hypertension Grandfather (Maternal) Prostate cancer Brother Myocardial infarction Grandfather (Paternal) Myocardial infarction Grandmother (Paternal) Myocardial infarction Other Colon cancer Denies family history of Ovarian cancer Breast cancer Social History Smoking Status: Former smoker Age Quit Using Tobacco: 44; packs per day: 1; Smoking End Date: 5 years ago; Number of Years Since Quit: 4; Second Hand Exposure: No; Do You Dip or Chew Tobacco: No; Hx Alcohol Use: Yes Alcohol type: hard liquor Alcohol Intake Frequency Comment: 2-3 week Hx Substance Use: No Preferred Language: Sinhala Communication Ability: Effective Visual Impairment: No Limitations 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: Normal 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 Ear, Nose, Mouth, Throat: no tinnitus Respiratory: no cough and no dyspnea Cardiovascular: no chest pain and no palpitations Gastrointestinal: no nausea and no vomiting Genitourinary: no dysuria Musculoskeletal: no myalgia Integumentary: no rash and no lesions Neurologic: as per Subjective / HPI, + paresthesia and + tremor(s) Psychiatric: + anxiety; no depression Hematologic / Lymphatic: no easy bleeding and no easy bruising Exam (Neuro) Constitutional: well developed and well nourished; no acute distress Eyes: normal visual dickson by confrontation, PERRL, normal accommodation and EOM intact bilaterally; no fundoscopic abnormality, no nystagmus and no papilledema Cardiovascular: Vessels: normal carotid upstroke; no carotid bruit Neurologic: Oriented to:: Person, Place and Time Memory: Short Term Intact and Remote Intact Attention: Span Intact and Concentration Intact Language: Naming Objects and Repeating Phrases Speech Fluency: negative Dysarthria Speech Aphasia: negative Aphasia Fund of Knowledge: Current Events, Past History and Vocabulary Cranial Nerves: Normal II (Visual dickson full to confrontation, visual acuity normal), III, IV, (Pupils equal round reactive to light and accommodation, eye movements normal), V (Facial sensation intact), VII (There is no facial droop or weakness), VIII (Hearing intact), IX, X (Palate elevates to midline), XI (Shoulder shrug intact) and XII (Tongue protrudes to midline) Motor Strength: Normal Lower Extremities and Normal Upper Extremities; negative Pronator Drift Motor Tone: Normal Lower Extremities and Normal Upper Extremities Muscle Bulk/Involuntary Movements: Intention Tremor and Action Tremor; negative Muscle Atrophy, Pill Rolling Tremor and Rest Tremor (Arm) Sensation: Light Touch Intact, Pain/Temperature Intact, Vibration Intact and Proprioception Intact Coordination: Normal; negative Limited Balance, Dysdiadochokinesia, Finger-Nose Abnormal and Heel-Mcgee Abnormal Deep Tendon Reflexes: Rt Triceps: 2+, Lt Triceps: 2+, Rt Biceps: 2+, Lt Biceps: 2+, Rt Brachioradialis: 2+, Lt Brachioradialis: 2+, Rt Patellar: 3+, Lt Patellar: 3+, Rt Ankle: 3+ and Lt Ankle: 3+ Special Tests: negative Babinski Present Gait: Normal Station and Gait Results & Data ([facility]) Vital Signs (Past 12 Hours) Vital Signs Temp Pulse Pulse Resp BP Pulse Ox 07/09/20 07:39 36.8 C 57 L 18 127/76 97 07/08/20 23:30 36.6 C 61 20 164/74 H 96 Laboratory Results WBC 4.43, hemoglobin 11.1, hematocrit 32.1, platelet count 88, sodium 140, potassium 4.2, BUN 31, creatinine 1.38, glucose 90, calcium 8.4, magnesium 2.3, AST 63, ALT 102, CK 65, B12 824, folate 17.39 Lyme antibody screen negative, anaplasmosis smear negative Diagnostic Findings Brain MRI reveals no significant abnormalities. No evidence of demyelinating disease or acute or subacute stroke. Cerebellar tonsils appear normal. No hydrocephalus or obvious structural abnormalities. I reviewed the images as well as the radiologist interpretation of this test. An electrocardiogram completed yesterday reveals sinus bradycardia, 55 bpm. Coding Level of Care Code 12930 Office/OBS Consult Lvl 5 Diagnoses Benign essential tremor G25.0 Episode of visual loss of right eye H53.121
--- NOTE | 2020-07-09 11:57 | Nephrology Consultation ---
Date of Consultation July 09, 2020 Assessment & Plan (1) Acute renal failure (ARF): Creatinine has improved significantly with IV fluids. This suggested the patient was volume depleted. It is unclear why would become so at dehydrated based on his clinical history. However, at this time is reasonable to stop his IV fluids. I would not just attributes his elevated creatinine to a lab error. It is reassuring to note that his CK chest checked and found to be normal. His electrolytes are otherwise normal. On exam he is euvolemic. His blood pressure is appropriate. No nephrotoxic medications were identified. No additional change in his treatment was recommended at this time. I note that testing for in a plasma [place] was also negative. IV saline infusion will be stopped. I will repeat a metabolic profile this afternoon. At this time and nothing more to add. Nephrology follow-up in the outpatient clinic can be arranged with Dr. Gallegos as needed. History of Present Illness Reason for Consultation: MAE Requesting Physician: Cristino Shirley MD Attending Physician: Cristino Shirley MD History of Present Illness Mr. 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 He avoids tetracyclines. Paddy has followed in the nephrology clinic with Dr. Gallegos. Creatinine has been normal as measured at 1.0 mg/dL as recently as December 2019. Medical history is also notable for obstructive sleep apnea, coronary artery disease, hypertension, chronic liver disease, Spaulding's esophagus, alcohol use, documented hemochromatosis. Patient also has a essential tremor. Has multiple recent neurologic concerns. These include intermittent sudden vision loss affecting his right eye. He is scheduled to see Dr. Delgado in the Ophthalmology Clinic for evaluation of this tomorrow. Patient follows in the Neurology Clinic locally with Dr. Crum. He was seen evaluated by Dr. Crum in the hospitals morning. Paddy presented to the hospital yesterday with serum creatinine of 2.87 mg/dL. He has received IV fluids. He is maintained in a positive fluid balance of approximately 2 L. He is nonoliguric. Blood pressure has been acceptable. He denies any recent tetracycline use. He denies any recent NSAID use. At this time he feels well. Creatinine has improved to 1.38 mg/dL. No urine studies or renal imaging are available for this admission. Allergies Allergy/AdvReac Type Severity Reaction Status Date / Time mushroom Allergy Severe ANAPHALYAXSIS, Verified 07/08/20 15:02 HIVES oxycodone Allergy Severe rash Verified 07/08/20 19:26 swelling, anaphylaxis hydrocodone Allergy Intermediate SWELLING, Verified 07/08/20 15:02 HIVES codeine Allergy MO Hives, Verified 07/08/20 15:02 swelling doxycycline Allergy Unknown "CPK Verified 07/08/20 15:02 levels get out of whack" daptomycin AdvReac Rhabdomyoly Verified 07/08/20 19:36 sis Home Medications Home Medications Medication Instructions Recorded Confirmed Type nitroglycerin [Nitrostat] 0.4 mg SUBLINGUAL UD PRN 10/04/18 07/08/20 History aspirin 81 mg PO QAM 10/05/19 07/08/20 History clopidogrel 75 mg tablet 75 mg PO QAM #90 tab 11/14/19 07/08/20 Rx tamsulosin 0.4 mg capsule 0.4 mg PO DAILY #90 cap 01/26/20 07/08/20 Rx pantoprazole 40 mg tablet,delayed 40 mg PO QAM #30 tab 02/23/20 07/08/20 Rx release lidocaine 5 % topical ointment 1 appln TOP UD PRN #30 gm 03/28/20 07/08/20 Rx diltiazem HCl 120 mg 120 mg PO QAM #30 cap 04/23/20 07/08/20 Rx capsule,extended release 24 hr lisinopril 10 mg tablet 10 mg PO DAILY #90 tab 05/02/20 07/08/20 Rx fluticasone propionate 50 1 sprays INTRANASAL DAILY PRN #1 gm 06/03/20 07/08/20 History mcg/actuation nasal spray,suspension sertraline 50 mg tablet 50 mg PO QAM #30 tab 06/06/20 07/08/20 Rx topiramate 50 mg tablet 50 mg PO DAILY 30 Days #30 tab 07/05/20 07/08/20 Rx propranolol 5 mg PO DAILY PRN 07/08/20 07/08/20 History Patient History Medical History Acute kidney injury (Acute) Asthma MILD - NO INHALERS Bronchitis H/O Degenerative disc disease Depression NO MEDICATIONS CURRENTLY Diverticular disease Fatty liver GERD (gastroesophageal reflux disease) H/O esophageal spasm TAKES CARDIZEM H/O mitral valve prolapse HAS "GONE AWAY IN THE LAST 20 YEARS" Hemorrhoid Hypertension Hypervitaminosis D Myocardial Infarction Osteoarthritis Sleep apnea RECENT DIAGNOSIS -- NO MACHINE YET (CPAP) Surgical History History of cardiac cath MAY & JUNE 2018 AT [facility] JUN 2019 AT [facility] History of colonoscopy Done withing the last year. History of esophagogastroduodenoscopy (EGD) History of heart valve replacement X2 STENTS (MAY AND JUNE 2018) AT [facility] History of neurologic surgery 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 Family History Grandfather Family history of esophageal cancer Mother Myocardial infarction Diabetes Hypertension Father Myocardial infarction Hypertension Grandfather (Maternal) Prostate cancer Brother Myocardial infarction Grandfather (Paternal) Myocardial infarction Grandmother (Paternal) Myocardial infarction Other Colon cancer Denies family history of Ovarian cancer Breast cancer Social History Smoking Status: Former smoker Age Quit Using Tobacco: 44; packs per day: 1; Smoking End Date: 5 years ago; Number of Years Since Quit: 4; Second Hand Exposure: No; Do You Dip or Chew Tobacco: No; Hx Alcohol Use: Yes Alcohol type: hard liquor Alcohol Intake Frequency Comment: 2-3 week Hx Substance Use: No Preferred Language: Omani Communication Ability: Effective Visual Impairment: No Limitations 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: 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 Beliefs That Will Affect Care: None marital status: Current Living Situation: Spouse current occupational status: employed Other Information That Helps Us Care for You: No Feels Safe at Home: Yes Safety Concerns: Feels Safe At This Time Dental Care, Regularly: Yes Physical Activity Frequency: Does not Exercise Review of Systems Review of Systems: All systems reviewed & are unremarkable except as noted in HPI & below Physical Exam Constitutional: well developed; no acute distress Eyes: no scleral abnormality and no corneal abnormality ENMT: Mouth: no oral mucosal abnormality and oral mucous membranes not dry Neck: normal visual inspection and trachea midline Respiratory: normal respiratory effort Auscultation: lungs clear to auscultation bilaterally Cardiovascular: Rate/Rhythm: regular rate Heart Sounds: normal S1 and normal S2 Extremities: no edema Musculoskeletal: Extremities: no cyanosis and no clubbing Skin: normal turgor; no lesions Neurologic: Motor/Sensory: no tremor and no asterixis Psychiatric: Orientation: alert and oriented x 3 Results & Data Vital Signs (Past 12 Hours) Vital Signs Temp Pulse Resp BP Pulse Ox 07/09/20 07:39 36.8 C 57 L 18 127/76 97 Laboratory Results Laboratory Results - last 24 hr 07/08/20 07/08/20 07/08/20 16:20 16:20 16:20 WBC 5.51 RBC 3.42 L Hgb 12.2 L Hct 35.2 L MCV 102.9 H MCH 35.7 H MCHC 34.7 RDW Std Deviation 54.1 H RDW Coeff of Heather 14.4 Plt Count 120 L MPV 9.4 Immature Gran % (Auto) Neut % (Auto) Lymph % (Auto) [place] % (Auto) Eos % (Auto) Baso % (Auto) Neut # (Auto) Lymph # (Auto) [place] # (Auto) Eos # (Auto) Baso # (Auto) Immature Gran # (Auto) Platelet Estimate PT 10.9 INR 1.0 APTT 28.2 PTT Ratio 1.0 Sodium 140 Potassium 3.9 Chloride 109 H Carbon Dioxide 20 L Anion Gap 11.0 BUN 33 H Creatinine 2.87 H Est Cr Clr Drug Dosing Not Reportable Est GFR ( Amer) 28.5 Est GFR (Non-Af Amer) 24.6 BUN/Creatinine Ratio 11.5 Glucose 93 Calcium 9.3 Magnesium 2.3 Total Bilirubin 0.7 AST 63 H ALT 102 H Alkaline Phosphatase 87 Total Creatine Kinase 65 Total Protein 7.7 Albumin 4.1 Globulin 3.6 Albumin/Globulin Ratio 1.1 Vitamin B12 Folate Anaplasma Smear A. phagocytophilum DNA Lyme Disease IgG Ab Lyme Disease IgM Ab 07/08/20 07/08/20 07/08/20 22:16 22:16 22:16 WBC RBC Hgb Hct MCV MCH MCHC RDW Std Deviation RDW Coeff of Heather Plt Count MPV Immature Gran % (Auto) Neut % (Auto) Lymph % (Auto) [place] % (Auto) Eos % (Auto) Baso % (Auto) Neut # (Auto) Lymph # (Auto) [place] # (Auto) Eos # (Auto) Baso # (Auto) Immature Gran # (Auto) Platelet Estimate PT INR APTT PTT Ratio Sodium Potassium Chloride Carbon Dioxide Anion Gap BUN Creatinine Est Cr Clr Drug Dosing Est GFR ( Amer) Est GFR (Non-Af Amer) BUN/Creatinine Ratio Glucose Calcium Magnesium Total Bilirubin AST ALT Alkaline Phosphatase Total Creatine Kinase Total Protein Albumin Globulin Albumin/Globulin Ratio Vitamin B12 Folate Anaplasma Smear See Comment A. phagocytophilum DNA Pending Lyme Disease IgG Ab Negative Lyme Disease IgM Ab Negative 07/08/20 07/09/20 07/09/20 22:16 08:37 08:37 WBC 4.43 L RBC 3.14 L Hgb 11.1 L Hct 32.1 L MCV 102.2 H MCH 35.4 H MCHC 34.6 RDW Std Deviation 52.1 H RDW Coeff of Heather 14.0 Plt Count 88 L MPV 8.8 Immature Gran % (Auto) 0.0 Neut % (Auto) 57.0 Lymph % (Auto) 27.3 [place] % (Auto) 12.6 Eos % (Auto) 2.9 Baso % (Auto) 0.2 Neut # (Auto) 2.52 Lymph # (Auto) 1.21 [place] # (Auto) 0.56 Eos # (Auto) 0.13 Baso # (Auto) 0.01 Immature Gran # (Auto) 0.00 Platelet Estimate Decreased L PT INR APTT PTT Ratio Sodium 140 Potassium 4.2 Chloride 113 H Carbon Dioxide 22 Anion Gap 5.0 BUN 31 H Creatinine 1.38 D Est Cr Clr Drug Dosing 78.1 Est GFR ( Amer) 69.1 Est GFR (Non-Af Amer) 59.6 BUN/Creatinine Ratio 22.5 H Glucose 90 Calcium 8.4 L Magnesium Total Bilirubin AST ALT Alkaline Phosphatase Total Creatine Kinase Total Protein Albumin Globulin Albumin/Globulin Ratio Vitamin B12 824 Folate 17.39 Anaplasma Smear A. phagocytophilum DNA Lyme Disease IgG Ab Lyme Disease IgM Ab PG Care Time/CCT Total # of Minutes Spent Total Time Spent with Patient: Total time spent is greater than 50% in coordi nation of care (as documented) at patient's floor/unit and/or counseling patient: Coding Level of Care Code 96164 Inpt Consult Level 4 Diagnoses Acute renal failure (ARF) N17.9 Acute renal failure type: unspecified (1) Acute renal failure (ARF) Acute renal failure type: unspecified Qualified Code(s): N17.9 - Acute kidney failure, unspecified
--- NOTE | 2020-07-09 12:55 | Medical Student Progress Note ---
Date of Service July 09, 2020 Assessment & Plan (1) Episode of visual loss of right eye: Paddy is a 49-year-old male with a past medical history significant for CAD with NSTEMI and stent placement, RUSSELL, hemochromatosis, and MAE secondary to rhabdomyolysis in 2019 who is currently being evaluated for intermittent right vision loss and MAE. 1. Right vision loss and weakness The patient's history of intermittent vision loss has a wide differential diagnosis and Neurology has been consulted. Due to the patient's personal and family history of CAD, a vascular etiology deserves consideration. -B12 and folate levels within normal range -Lyme IgG and IgM antibodies negative -Negative Anaplasma smear. PCR pending -Brain MRI negative for any acute intracranial findings -Neurology consulted * Carotid Ultrasound obtained - no carotid stenosis * MRA head w/o contrast ordered - pending * discontinued topiramate due to potential side effects of weakness, hyperreflexia -Ophthalmology appointment scheduled for 07/10 for further evaluation 2. Acute Kidney Injury Initial lab work showed evidence of MAE of unclear prerenal vs. intrinsic renal etiology. However, the improvement in creatinine following IV fluids suggests prerenal MAE. A normal CK is reassuring that Paddy is not having a repeat episode of rhabdomyolysis-induced MAE. -500 mL fluid bolus administered in ED followed by 125 mL normal saline upon admission -Creatinine downtrending (2.87 --> 1.38) -Total creatine kinase = 65 -Nephrology consulted * discontinued fluids * trend BMP 3. Idiopathic Essential Tremor The patient has an essential tremor of the left arm for which he is followed by neurology as an outpatient. Medication modifications over the past few months have not improved symptoms and may have contributed to the other neurologic symptoms of weakness and visual disturbance. -Neurology consulted * Discontinued Topiramate and Propranolol * Withhold from new medication trials at this time. primidone or gabapentin may be considered as an outpatient 4. Alcohol Use Disorder Paddy endorses a long history of alcohol abuse but he is actively working on reducing his alcohol consumption. He is seeing a therapist and has reduced his alcohol consumption over the past few months. He attributes his alcohol use to a combination of depression, PTSD, and insomnia. -Discussed connection between insomnia and alcohol use disorder. Consider initiating Trazodone for management of insomnia prior to discharge 5. Depression - continue Sertraline 50 mg daily - patient has upcoming appointment with psychiatrist for depression and sleep FENGI: heart healthy, no IVF DVT Prophylaxis: Lovenox 40 mg SQ Code Status: Full Code Disposition: med/surg, discharge planning pending MRA head results Supervising Attestation Attending attestation Pt seen and examined in concert with Student Dr. Toledo and Dr. Saul. In agreement with the documented findings as noted in the resident documentation with any exceptions or additions as noted here. Resting comfortably in bed with intermittent opthalmic complaint of loss of focus/blurring without overt loss. Does report feeling better since d/c of topiramate, propranolol and tamsulosin, comparatively. On examination, S1/S2 nl RRR no MCG. CTAB. Abd NT/ND BS+ve. CNII-XII grossly intact. Right sided vision loss with weakness - neurology consultation appreciated - follow up MRA brain - ophthalmology f/u pending d/c MAE - resolved, lab error v. acute fluid shift. Off IVF for now, repeat BMP in AM Essential tremor - off topiramate and propranolol. Neuro rec's appreciated, for further mgmt as outpatient. Else see resident documentation as noted. Subjective Paddy Calixto is a 49/year-old male with an extensive past medical history of CAD with stent placement, RUSSELL, hemochromatosis, MAE secondary to rhabdomyolysis, and repaired chiari malformation presenting with worsening dizziness, transient right vision loss, and muscle weakness. He states that he has been experiencing dizziness, headaches, and weakness for the past few months. Over the past week, however, his symptoms have increased in severity and frequency and he now endorses intermittent right visual disturbance as well. He is currently being followed by Dr. Crum of Neurology as an outpatient for management of an idiopathic essential tremor. In the emergency department, Paddy did not display any localized neurologic findings but he was found to have global weakness. He was also found to have MAE of unclear prerenal vs. intrinsic renal etiology, for which fluids were initiated. Today, Paddy continues to endorse intermittent dizziness and lightheadedness. However, he denies any muscle weakness. He notes that he experienced an episode of blurry vision in his right eye while he was undergoing the carotid ultrasound but his vision has returned to baseline. He endorses good urine output without dysuria. Additional history worth noting includes daily alcohol consumption of "6 fingers" worth of bourbon for the last 3 months since starting therapy, and more than twice as much daily alcohol consumption for years before starting therapy. 27 pack-year smoking history, and a significant family history of myocardial infarction in his dad, mom, both paternal grandparents, and brother. Review of Systems Constitutional: no weakness Eyes: no diplopia, no eye pain and no problem reported Ear, Nose, Mouth, Throat: no tinnitus and no hearing loss Respiratory: no problem reported Cardiovascular: no problem reported Gastrointestinal: no problem reported Genitourinary: no decreased urination Musculoskeletal: no muscle weakness Physical Exam Constitutional: WD/WN, vitals as above no acute distress Eyes: PERRL, conjunctivae normal, anicteric sclerae normal visual dickson by confrontation, normal accommodation, EOM intact bilaterally and reactive pupils ENMT: Ears: no hearing impairment Neck: normal visual inspection Respiratory: normal respiratory effort, lungs clear to auscultation Cardiovascular: RRR, no murmur, no edema Musculoskeletal: no cyanosis or clubbing, extremities motor strength 5/5 Skin: no rashes, warm and dry Neurologic: PERRL, EOMI, accommodation nl, no face palsy, no dysarthria CN's II-XI intact bilaterally; no focal motor deficits Motor/Sensory: + sukhjinder mor (Left hand) Coordination: normal [id number] test Results & Data ([facility]) Vital Signs (Past 12 Hours) Vital Signs Temp Pulse Resp BP Pulse Ox 07/09/20 07:39 36.8 C 57 L 18 127/76 97 Laboratory Results Hgb 12.2 MCV 102.9 Sodium 140 Potassium 3.9 -->4.2 Calcium 8.4 Magnesium 2.3 BUN 33 --> 31 Cr 2.87 --> 1.38 (Baseline 1.02 in December 2019) AST 63, ALT 102, ALP 87 Total CK 65 B12 824, Folate 17 Lyme IgM and IgG negative Negative Anaplasma smear, PCR pending Diagnostic Findings No abnormal findings on CXR Brain MRI: No acute intracranial abnormalities Resident Activity Tracking Resident Involvement: Resident Care Provided Care Provided: [facility]
--- NOTE | 2020-07-09 14:05 | Ultrasound Report ---
US carotid doppler BI HISTORY: Visual change Transient vision loss right eye, amaurosis fugax? COMPARISON: None. TECHNIQUE: Real-time, grayscale, and color Doppler sonography of the carotid arteries was performed. Imaging reviewed in the transverse and longitudinal planes. All measurements were calculated based on NASCET criteria. FINDINGS: Antegrade flow is seen in the bilateral vertebral arteries. The brachial pressures are hemodynamically similar. Minimal plaque formation bilaterally The peak systolic velocity within the right ICA is 59. The right systolic ratio is 0.6. The peak systolic velocity within the left ICA is 71. The left systolic ratio is 0.7. IMPRESSION: No hemodynamically significant stenosis seen within the carotid arteries. Minimal plaque formation. ACT 112: Negative or not required by law. The above report was generated using voice recognition software. It may contain grammatical, syntax or spelling errors. Electronically signed by: Pillo Espinoza M.D. 07/09/2020 2:04 PM
[2020-07-09 14:41] LABS: BUN Creatinine Ratio 19.8 (10-20); Creatinine Clr Calc Pharmacy 73.3 ml/min; Est GFR (Non-African American) 55.2; Potassium 3.9 mmol/L (3.5-5.1)
--- NOTE | 2020-07-09 19:02 | Magnetic Resonance Report ---
MR ANGIOGRAM OF THE BRAIN CLINICAL HISTORY: Generalized weakness. Partial blindness of the right eye. COMPARISON STUDY: MRI of the brain performed the same day 07/09/2020. TECHNIQUE: 3-D [id number] MR angiography of the intracranial circulation is performed. 3-D tumble views are created and assessed. IV contrast was not administered for this examination. FINDINGS: There is origin of the right posterior cerebral artery. The internal carotid arteries are widely patent bilaterally, as are the anterior and middle cerebral arteries. The vertebrobasilar system and posterior cerebral arteries are widely patent. The right vertebral artery is dominant. T here is no aneurysm, high-grade stenosis, or focal vessel cutoff seen throughout the intracranial cir culation. The brain parenchyma is normal as visualized. IMPRESSION: Unremarkable MR angiogram of the brain. ACT 112: Negative or not required by law. Electronically signed by: Jose Hernandez M.D. 07/09/2020 7:01 PM
--- NOTE | 2020-07-09 20:24 | Billing Data ---
Date of Service July 09, 2020 Coding Level of Care Code 36624 Initial Inpt Care Lvl 3
[2020-07-09 22:53] VITALS: O2SAT 98
[2020-07-10] MEDS ORDERED: Nursing to Pharmacy Communication SCH (06:30)
[2020-07-10 06:45] LABS: Basophils # (auto) 0.01 K/uL (0-0.2); Basophils % (auto) 0.2 %; Eosinophils # (auto) 0.14 K/uL (0-0.5); Eosinophils % (auto) 3.1 %; Hematocrit (blood only) 34.6 % (42-52); Hemoglobin 11.9 g/dL (14.0-18.0); Immature Granulocytes # (auto) 0.01 K/uL (0.00-0.02); Immature Granulocytes % (auto) 0.2 %; Lymphocytes # (auto) 1.24 K/uL (1.2-3.4); Lymphocytes % (auto) 27.7 %; Mean Corpuscular Hemoglobin 35.2 pg (25-34); Mean Corpuscular Hgb Conc 34.4 g/dL (32-36); Mean Corpuscular Volume 102.4 fL (80-100); Mean Platelet Volume 9.3 fL (7.4-10.4); Monocytes # (auto) 0.49 K/uL (0.11-0.59); Neutrophils # (auto) 2.58 K/uL (1.4-6.5); Neutrophils % (auto) 57.8 %; Platelet Count 100 K/uL (130-400); RDW Coefficient of Variation 13.8 % (11.5-14.5); RDW Standard Deviation 51.8 fL (36.4-46.3); Red Blood Count 3.38 M/uL (4.7-6.1); White Blood Count 4.47 K/uL (4.8-10.8)
[2020-07-10 07:19] LABS: BUN Creatinine Ratio 19.5 (10-20); Calcium 9.2 mg/dl (8.5-10.1); Creatinine Clr Calc Pharmacy 85.5 ml/min; Est GFR (African American) 77.1; Est GFR (Non-African American) 66.5; Potassium 4.4 mmol/L (3.5-5.1)
[2020-07-10 07:36] VITALS: BP 138/80; TEMP 98.4
[2020-07-10] MEDS ORDERED: TAMSULOSIN HCL 0.4 MG CAP PO SCH ×2 (09:00→21:00)
[2020-07-10 11:03] VITALS: PULSE 49
--- NOTE | 2020-07-10 12:24 | Nephrology Progress Note ---
Date of Service July 10, 2020 Assessment & Plan (1) Acute renal failure (ARF): Creatinine has improved significantly with IV fluids. This suggested the patient was volume depleted. It is unclear why would become so at dehydrated based on his clinical history. However, I would defer any additional evaluation at this time given the rapid improvement. I would not just attribute his elevated creatinine to a lab error. It is reassuring to note that his CK chest checked and found to be normal. His electrolytes are otherwise normal. On exam he is euvolemic. His blood pressure is appropriate. No nephrotoxic medications were identified. No additional change in his treatment was recommended at this time. Nephrology follow-up in the outpatient clinic can be arranged with Dr. Gallegos as needed. Admission and Anticipated Discharge Date Admission Date: July 08, 2020 Subjective No acute events overnight. Paddy was seen and evaluated with his at the bedside this AM. Plan for discharge reviewed. Review of Systems Review of Systems: All systems reviewed & are unremarkable except as noted in HPI & below Physical Exam Constitutional: well developed; no acute distress Eyes: no scleral abnormality and no corneal abnormality ENMT: Mouth: no oral mucosal abnormality and oral mucous membranes not dry Neck: normal visual inspection and trachea midline Respiratory: normal respiratory effort Auscultation: lungs clear to auscultation bilaterally Cardiovascular: Rate/Rhythm: regular rate Heart Sounds: normal S1 and normal S2 Extremities: no edema Musculoskeletal: Extremities: no cyanosis and no clubbing Skin: normal turgor; no lesions Neurologic: Motor/Sensory: no tremor and no asterixis Psychiatric: Orientation: alert and oriented x 3 Results & Data ([facility]) Vital Signs (Past 12 Hours) Vital Signs Temp Pulse Pulse Resp BP Pulse Ox 07/10/20 11:02 36.9 C 53 L 49 L 16 138/80 98 07/10/20 07:34 36.9 C 53 L 16 138/80 98 Laboratory Results Laboratory Results - last 24 hr 07/09/20 07/10/20 07/10/20 14:05 06:23 06:23 WBC 4.47 L RBC 3.38 L Hgb 11.9 L Hct 34.6 L MCV 102.4 H MCH 35.2 H MCHC 34.4 RDW Std Deviation 51.8 H RDW Coeff of Heather 13.8 Plt Count 100 L MPV 9.3 Immature Gran % (Auto) 0.2 Neut % (Auto) 57.8 Lymph % (Auto) 27.7 [place] % (Auto) 11.0 Eos % (Auto) 3.1 Baso % (Auto) 0.2 Neut # (Auto) 2.58 Lymph # (Auto) 1.24 [place] # (Auto) 0.49 Eos # (Auto) 0.14 Baso # (Auto) 0.01 Immature Gran # (Auto) 0.01 Sodium 140 141 Potassium 3.9 4.4 Chloride 113 H 114 H Carbon Dioxide 20 L 20 L Anion Gap 8.0 7.0 BUN 29 H 25 H Creatinine 1.47 H 1.26 Est Cr Clr Drug Dosing 73.3 85.5 Est GFR ( Amer) 64.0 77.1 Est GFR (Non-Af Amer) 55.2 66.5 BUN/Creatinine Ratio 19.8 19.5 Glucose 125 H 89 Calcium 9.0 9.2 PG Care Time/CCT Total # of Minutes Spent Total Time Spent with Patient: Total time spent is greater than 50% in coordination of care (as documented) at patient's floor/unit and/or counseling patient: Coding Level of Care Code 32162 Subseq Hosp Care Lvl 3 Diagnoses Acute renal failure (ARF) N17.9 Acute renal failure type: unspecified (1) Acute renal failure (ARF) Acute renal failure type: unspecified Qualified Code(s): N17.9 - Acute kidney failure, unspecified
--- NOTE | 2020-07-10 17:43 | Discharge Summary ---
Date of Service July 10, 2020 Admission HPI Per Admitting Provider Paddy Calixto is a 49 year old man with a past medical history significant for CAD with NSTEMI and stent placement in 2018, RUSSELL, hemochromatosis, rhabdomyolysis with hospitalization for acute renal failure in 2019, and Chiari malformation repaired many years ago presents today with dizziness, occasional blindness in his right eye and muscle weakness. He tells me he has been having dizziness, headaches and weakness for a few months that is getting worse particularly in the last week. He has a neurologist Dr. Crum who he sees for his tremor who placed him on topiramate and propranolol which he feels have made his tremor even worse. He has also developed a new symptom over the past few weeks of occasionally losing vision in his right eye. He says he can still see light and shape but not make anything out of his right eye. He also reports a ghost vision phenomenon of seeing his hand move by in a delayed way with one eye but not the other. He presented to his primary care provider earlier today who noticed worsening tremor, weakness he advised him to come into emergency department for evaluation. In ED patient was found to have MAE with creatinine elevated from 1.0 in December up to 2.87. He also appears to have a metabolic acidosis. AST and ALT are both elevated at 63 and 102 respectively they have both been chronically elevated in the past. He did not have any vision symptoms or sided weakness in ED but rather a global weakness. CXR negative. Was given 500 mls of NSS. He is a current drinker of alcohol, says he drinks a little over six fingers of bourbon a night, he is a former smoker with a 27 pack year smoking history no drug use. He tells me his appetite has been low, but usually a meat and potato diet, here with his . Full code Admission Exam Per Admitting Provider Constitutional: well developed, well nourished and + well hydrated; no acute distress, not ill appearing and no altered mental status Eyes: PERRL, conjunctivae normal, anicteric sclerae normal accommodation; no scleral abnormality ENMT: external ear and nose normal, oropharynx normal Neck: trachea midline, no thyromegaly Respiratory: normal respiratory effort, lungs clear to auscultation Cardiovascular: RRR, no murmur, no edema Heart Sounds: no click, no gallop and no cardiac rub Vessels: normal peripheral pulses Gastrointestinal (Abdomen): normal bowel sounds, soft, nontender, no hepatosplenomegaly Musculoskeletal: no cyanosis or clubbing, extremities motor strength 5/5 Neurologic: CN's II-XI intact bilaterally and moves all extremities; no focal motor deficits Speech / Cognition: normal speech Motor/Sensory: + tremor Deep tendon reflexes exaggerated, 3+ globally, able to exhibit clonus in bila teral feet. Tremor at all times with any moving muscle including eye lids, arms, legs. Principal Diagnosis Acute Kidney Injury Generalized weakness Intermittent Blurry Vision in Right Eye Discharge Exam Constitutional WD/WN, vitals as above Eyes PERRL, conjunctivae normal, anicteric sclerae ENMT external ear and nose normal, oropharynx normal Neck normal visual inspection Respiratory normal respiratory effort, lungs clear to auscultation Cardiovascular RRR, no murmur, no edema Gastrointestinal (Abdomen) normal bowel sounds, soft, nontender, no hepatosplenomegaly Inspection/Auscultation: abdomen not distended Musculoskeletal no cyanosis or clubbing, extremities motor strength 5/5 Head/Neck/Chest: normocephalic and head atraumatic Skin no rashes, warm and dry Neurologic patellar DTR's 2+ bilat, sensation intact and PERRL, EOMI, accommodation nl, no face palsy, no dysarthria normal touch/pain/proprioception, CN's II-XI intact bilaterally, deep tendon reflexes 2+ bilaterally and moves all extremities Motor/Sensory: + tremor Psychiatric A+Ox3, euthymic affect Lymphatic no cervical lymphadenopathy Discharge Data Allergies Allergy/AdvReac Type Severity Reaction Status Date / Time mushroom Allergy Severe ANAPHALYAXSIS, Verified 07/08/20 15:02 HIVES oxycodone Allergy Severe rash Verified 07/08/20 19:26 swelling, anaphylaxis hydrocodone Allergy Intermediate SWELLING, Verified 07/08/20 15:02 HIVES codeine Allergy MO Hives, Verified 07/08/20 15:02 swelling doxycycline Allergy Unknown "CPK Verified 07/08/20 15:02 levels get out of whack" daptomycin AdvReac Rhabdomyoly Verified 07/08/20 19:36 sis Consultations 07/08/20 19:18 ED Decision to Admit Stat 07/08/20 21:42 Consult Nephrology Routine Consult Neurology Routine Ordered Studies 07/09/20 00:00 MR brain wo con Urgent 07/09/20 13:30 US carotid doppler BI Routine 07/09/20 17:54 MR angio head wo con Stat Hospital Course (1) Episode of visual loss of right eye: Paddy is a 49-year-old male with a past medical history significant for CAD with NSTEMI and stent placement, RUSSELL, hemochromatosis, essential tremor and MAE secondary to rhabdomyolysis in 2019 who was admitted on 07/08/2020 for MAE, generalized weakness, and intermittent blurry vision of right eye. He was started on IVFs which quickly resolved the MAE - Creatinine near baseline by the morning of 07/09 - suspected to be secondary to dehydration as the patient was only drinking two bottles of water per day. He was seen by Nephrology which ruled out other potential causes of MAE, including rhabdomyolysis, given his past medical history. He was also seen by neurology and had a neck US, MRI brain and MRA head which did not show signs of carotid artery stenosis, other vascular pathology, or any acute intracranial process. Neurology also discontinued his Topamax and Propranolol for his essential tremor, as these medications may have contributed to his generalized weakness. The patient reported that his intermittent blurry vision improved throughout the hospitalization. He was discharged on 07/10/2020 in good condition. He will follow up with his Council Member on 07/10/2020. He will also follow up with his Neurologist for further treatment of tremor, weakness and eye symptoms, and he will follow with his Amr Physician as well. (2) Acute kidney injury: Total Time Total Time Spent Total Time Spent (In Minutes): 30 minutes Total Time Includes: Examination of the Patient, Discharge Planning and Medication Reconciliation Discharge Plan Discharge Items Patient Disposition: Home - Self-Care Reason For Visit: MAE, WEAKNESS, TREMOR Discharge Diagnosis: Acute Kidney Injury secondary to Dehydration, resolved Condition on Discharge: Good Activity: Per Instructions section Non-emergency contact: Primary Care Provider and Neurologist Call non-emergency contact if: you have any medication questions, your symptoms worsen and you have a fever Follow-up/Referrals: Jose Crum MD [Physician] - 08/13/20 3:45 pm Oh Barrera DO [Physician] - 07/17/20 10:20 am Moise Drake DO [Primary Care Provider] - 07/12/20 9:20 am Diet: Heart Healthy Addtl Attending Provider Instructions: You were admitted to [facility] on 07/08/2020 for an acute kidney injury and for generalized weakness with occasional right eye vision blurriness. We treated your kidney injury with IV fluids which quickly resolved your injury. You were also seen by your Neurologist in the hospital for your weakness and eye symptoms - he ordered an ultrasound of your neck and imaging of your brain which both showed no signs of vessel blockage. You should follow up with your Council Member for further evaluation of your eye symptoms, should they continue. Your Neurologist also recommended that you stop the Topamax and Propranolol medications that you have been taking for tremors, as he thinks your weakness may be due to this medication. You should follow up with your Amr Physician to monitor your kidneys. You will be discharged on 07/10/2020. You should follow up with your neurologist for further management of your tremors. You should also follow up with your primary care physician and your therapist in order to continue on your path to alcohol cessation. Pending Studies at Discharge: No Stand-Alone Forms: My [facility], Smoking Cessation Medications and DC Order Prescriptions: Continued clopidogrel [Plavix] 75 mg tablet 75 mg PO QAM Qty: 90 RF: 3 pantoprazole 40 mg tablet,delayed release (DR/EC) 40 mg PO QAM Qty: 30 RF: 5 lidocaine 5 % ointment 1 appln TOP UD PRN (Reason: anal irritation) Qty: 30 RF: 0 diltiazem HCl 120 mg capsule,extended release 24hr 120 mg PO QAM Qty: 30 RF: 5 lisinopril 10 mg tablet 10 mg PO DAILY Qty: 90 RF: 3 sertraline 50 mg tablet 50 mg PO QAM Qty: 30 RF: 5 fluticasone propionate [Flonase Allergy Relief] 50 mcg/actuation spray,suspension 1 sprays intranasal DAILY PRN (Reason: Allergy Symptoms) Qty: 1 RF: 0 nitroglycerin [Nitrostat] 0.4 mg Tablet, Sublingual 0.4 mg Sublingual UD PRN (Reason: CHEST PAINS) RF: 0 aspirin 81 mg Tablet,Delayed Release (Dr/Ec) 81 mg PO QAM RF: 0 Discontinued tamsulosin 0.4 mg capsule 0.4 mg PO DAILY Qty: 90 RF: 2 topiramate 50 mg tablet 50 mg PO DAILY 30 Days Qty: 30 RF: 0 propranolol 10 mg tablet 5 mg PO DAILY PRN (Reason: tremor) RF: 0 Discharge Orders: Discharge Order (Routine); Ordered 07/10/20 Ordered By: Mahnaz Asif/Other Patient Handouts: Alcoholism Resources, Alcohol Addiction Admission Data Admit Date/Time: 07/08/20 20:42 Attending Provider: Cristino Shirley Admit Provider: Epi Nuñez Primary Care Provider: Moise Drake Other Providers: Vlad Lobo ; Oh Barrera ; Jose Crum Other Interventions: Discharge Summary Assessment (RN) Last Done: 07/10/20 11:02 Supervising Physician Co-Signing Physician Notes Attending attestation Pt seen and examined in concert with Student Dr. Toledo and Dr. Saul. In agreement with the documented findings as noted in the resident documentation with any exceptions or additions as noted here. Resting comfortably in bed with intermittent opthalmic complaint of loss of focus/blurring without overt loss. Reports episodes are considerably lessened since medications changed. BPH was mild and occurred remotely, no issues with nocturia or daily function. On examination, S1/S2 nl RRR no MCG. CTAB. Abd NT/ND BS+ve. CNII-XII grossly intact. Right sided vision loss with weakness - neurology consultation appreciated - follow up MRA brain - ophthalmology f/u pending d/c. Can d/c tamsulosin with follow up with PCP MAE - resolved, lab error v. acute fluid shift Essential tremor - off topiramate and propranolol. Neuro rec's appreciated, for further mgmt as outpatient. Else see resident documentation as noted. Greater than 30 minutes of attending time spent in the preparation and completion of this discharge. Resident Activity Tracking Resident Involvement: Resident Care Provided Care Provided: Adult Hospital Medicine
[2020-07-10] MEDS ORDERED: PANTOprazole 40 MG TAB PO SCH (21:00)
[2020-07-10] MEDS ORDERED: SERTRALINE HCL 50 MG TABLET PO SCH (21:00)
[2020-07-10] MEDS ORDERED: CLOPIDOGREL BISULFATE 75 MG TAB PO SCH (21:00)
[2020-07-10] MEDS ORDERED: ASPIRIN 81 MG ECTAB PO SCH (21:00)
--- NOTE | 2020-07-10 23:20 | Electrocardiogram Report ---
Test Reason : Blood Pressure : / mmHG Vent. Rate : 055 BPM Atrial Rate : 055 BPM P-R Int : 190 ms QRS Dur : 092 ms QT Int : 442 ms P-R-T Axes : 001 -10 007 degrees QTc Int : 422 ms Sinus bradycardia Minimal voltage criteria for LVH, may be normal variant Cannot rule out Anterior infarct , age undetermined Abnormal ECG When compared with ECG of 13-OCT-2019 12:42, QT has shortened Confirmed by Bakari Lechuga ([id number]) on 07/10/2020 11:20:41 PM Referred By: Moise Drake Confirmed By:Bakari Lechuga
== END 2020-07-10 11:33 | disposition home or self-care (01) | DRG 684 ==
LOC: ED 15:47 → 3N 20:42 → SUATTDRO 20:42 → 3N 21:24

== ENCOUNTER 2020-08-24 14:52 | Inpatient (IN) ==
[2020-08-24] MEDS ORDERED: LORazepam 1 MG TAB SL STA (15:41)
--- NOTE | 2020-08-24 16:00 | Emergency Department Note ---
History of Present Illness General Chief complaint: Mental Health Evaluation Stated complaint: MENTAL HEALTH EVAL Time Seen by Provider: 08/24/20 15:06 Source: patient and RN notes reviewed Mode of arrival: ambulatory Limitations: no limitations History of Present Illness Provider complaint: Suicidal ideation Maximum Pain Intensity: 2 This patient is a 49-year-old male who presents emergency department with complaints of thoughts of self-harm earlier today. The patient states "something became disconnected" and points to his head. He states he had thoughts of cutting his forearms with a utility knife while sitting in a hot bath. Patient got the utility knife out of the drawer however did not proceed any further. He contacted his and asked her to come home from work. He did begin a text message to her son with his boris, however he did not actually send it. Patient states he has had "30 years of clinical depression" and a remote history of suicide attempt x1. He does drink bourbon and white tequila "3 finger breaths, 2-3 drinks daily." He admits to a history of heart disease, anxiety and an inability to sleep. He did present to the crisis center [facility] for assistance today. They referred him to the emergency department for further management. Patient states he used to smoke but quit 5 years ago. He does not use any illicit substances. Home Medications Home Medications Medication Instructions Recorded Confirmed Type nitroglycerin [Nitrostat] 0.4 mg SUBLINGUAL UD PRN 10/04/18 08/24/20 History aspirin 81 mg PO QAM 10/05/19 08/24/20 History clopidogrel 75 mg tablet 75 mg PO QAM #90 tab 11/14/19 08/24/20 Rx pantoprazole 40 mg tablet,delayed 40 mg PO QAM #30 tab 02/23/20 08/24/20 Rx release lidocaine 5 % topical ointment 1 appln TOP UD PRN #30 gm 03/28/20 08/24/20 Rx fluticasone propionate 50 1 sprays INTRANASAL DAILY PRN #1 gm 06/03/20 08/24/20 History mcg/actuation nasal spray,suspension sertraline 50 mg tablet 50 mg PO QAM #30 tab 06/06/20 08/24/20 Rx primidone 50 mg tablet 50 mg PO .QD PRN #30 tab 08/21/20 09/26/20 Rx lisinopril 5 mg tablet 5 mg PO DAILY #90 tab 07/30/20 08/24/20 Rx potassium phosphate, monobasic 500 500 mg PO TID #10 tab 07/30/20 08/24/20 Rx mg soluble tablet diltiazem HCl 180 mg 180 mg PO QAM #30 cap 08/13/20 08/24/20 Rx capsule,extended release 24 hr Allergies Allergy/AdvReac Type Severity Reaction Status Date / Time mushroom Allergy Severe ANAPHALYAXSIS, Verified 08/14/20 13:44 HIVES doxycycline Allergy Unknown "CPK Verified 08/14/20 13:44 levels get out of whack" venom-honey bee AdvReac Unknown Anaphylaxis Verified 08/14/20 13:44 daptomycin AdvReac Rhabdomyoly Verified 08/14/20 13:44 sis Past Med/Surg History Medical History Acute renal failure (ARF) Asthma MILD - NO INHALERS Bronchitis H/O Degenerative disc disease Depression NO MEDICATIONS CURRENTLY Diverticular disease Fatty liver GERD (gastroesophageal reflux disease) H/O esophageal spasm TAKES CARDIZEM H/O mitral valve prolapse HAS "GONE AWAY IN THE LAST 20 YEARS" Hemorrhoid Hypertension Hypervitaminosis D Hypophosphatemia Myocardial Infarction Osteoarthritis Sleep apnea RECENT DIAGNOSIS -- NO MACHINE YET (CPAP) Surgical History History of cardiac cath MAY & JUNE 2018 AT [facility] JUN 2019 AT [facility] History of colonoscopy Done withing the last year. 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 Family History Grandfather Family history of esophageal cancer Mother Myocardial infarction Diabetes Hypertension Father Myocardial infarction Hypertension Grandfather (Maternal) Prostate cancer Brother Myocardial infarction Grandfather (Paternal) Myocardial infarction Grandmother (Paternal) Myocardial infarction Other Colon cancer Denies family history of Ovarian cancer Breast cancer Social History (Updated 08/24/20 @ 16:07 by Yolanda Fuller MD) Smoking Status: Former smoker Age Quit Using Tobacco: 44; packs per day: 1; Number of Years Since Quit: 4; Second Hand Exposure: No; Hx Alcohol Use: Yes Alcohol type: hard liquor Alcohol Intake Frequency Comment: 2-3 large serving hard liquor/daily Hx Substance Use: No Preferred Language: Thai Communication Ability: Effective Visual Impairment: No Limitations 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: Normal Language Path Required: No Beliefs That Will Affect Care: None marital status: Current Living Situation: Spouse current occupational status: other current occupation: unemployed x 2 years b/c of "medical conditions" Feels Safe at Home: Yes Dental Care, Regularly: Yes Physical Activity Frequency: Does not Exercise Assistive Devices: Glasses Review of Systems See HPI for pertinent positives & negatives. and A total of 10 systems reviewed and were otherwise negative Physical Exam Vital Signs Vital Signs - 24 hr 08/24/20 14:54 08/24/20 17:34 Temperature 37.0 C Temperature Source Oral Pulse Rate 75 Pulse Rate [Right Finger] 72 Respiratory Rate 18 16 Respiratory Depth Normal Blood Pressure 148/89 H Blood Pressure [Right Arm] 144/66 H Blood Pressure Mean 108 Blood Pressure Mean [Right Arm] 92 Blood Pressure Position [Right Arm] Lying Pulse Oximetry 96 96 Oxygen Delivery Method Room Air Room Air Sepsis Recent Fever Within 48 Hours No Sepsis New/Unexplained Change in Mental Status No Sepsis Action Taken by Nursing No Action Required Vital signs reviewed. General: Well-appearing 49 yo male, in no significant distress. HEENT: No scleral icterus, PERRLA, neck supple. Atraumatic. Cardiovascular: Regular rate and rhythm, no extra sounds. Pulmonary: Clear to auscultation bilaterally, normal work of breathing. Abdomen: Soft, nontender, nondistended, positive bowel sounds. Musculoskeletal: Atraumatic, no peripheral edema. Neurologic: Patient awake alert and oriented x 3, baseline peripheral tremor Psych: Positive SI with plan and active furtherance, negative HI. Currently denies any intention of self-harm. Skin: Warm, dry, no rash Course Administered Medications Aspirin (Aspirin 81 Mg Ectab) [address] [facility] Stop: 09/23/20 21:14 Last Admin: 08/24/20 22:05 Dose: Not Given Documented by: [id number] Admin: 08/24/20 21:58 Dose: 81 mg Documented by: [id number] Clopidogrel Bisulfate (Clopidogrel Bisulfate 75 Mg Tab) [address] [facility] Stop: 10/26/20 21:14 Last Admin: 08/24/20 22:05 Dose: Not Given Documented by: [id number] Admin: 08/24/20 22:02 Dose: 75 mg Documented by: [id number] Diltiazem HCl (Diltiazem Hcl 180 Mg Capcr) [address] [facility] Stop: 09/23/20 21:14 Last Admin: 08/24/20 22:05 Dose: Not Given Documented by: [id number] Admin: 08/24/20 21:57 Dose: 180 mg Documented by: [id number] Lisinopril (Lisinopril 5 Mg Tab) 5 mg PO [facility] Stop: 09/23/20 21:14 Last Admin: 08/24/20 22:06 Dose: Not Given Documented by: [id number] Admin: 08/24/20 22:03 Dose: 5 mg Documented by: [id number] Pantoprazole Sodium (Pantoprazole 40 Mg Tab) [address] [facility] Stop: 09/23/20 21:14 Last Admin: 08/24/20 22:06 Dose: Not Given Documented by: [id number] Admin: 08/24/20 21:59 Dose: 40 mg Documented by: [id number] Potassium Phosphate (Pot Phosphate Monobasic W/ Sod Tab) 2 tab PO TID SARA Stop: 09/23/20 20:59 Last Admin: 08/24/20 21:56 Dose: 2 tab Documented by: [id number] Sertraline HCl (Sertraline Hcl 50 Mg Tablet) [address] [facility] Stop: 09/23/20 21:14 Last Admin: 08/24/20 22:06 Dose: Not Given Documented by: [id number] Admin: 08/24/20 22:04 Dose: 50 mg Documented by: [id number] Discontinued Medications Lorazepam (Lorazepam 1 Mg Tab) 2 mg SL NOW STA Stop: 08/24/20 15:42 Last Admin: 08/24/20 16:02 Dose: 2 mg Documented by: [id number] Potassium Chloride (Potassium Chloride 20 Meq Tabcr) 40 meq PO NOW STA Stop: 08/24/20 16:49 Last Admin: 08/24/20 17:12 Dose: 40 meq Documented by: [id number] Medical Decision Making Differential Diagnosis Differential diagnosis: Etiologies such as psychiatric disorder, infection, hypoglycemia, electrolyte abnormalities, cardiac sources, intracerebral event, toxicological process, neurologic disorder, as well as others were entertained. Medical Records Attestation: I reviewed the patient's medical records. Home Medications Current Medication List: was personally reviewed by me Laboratory Data Attestation: I reviewed the patient's lab results. Result diagrams: 08/24/20 15:25 08/24/20 15:25 Lab Results 08/24/20 08/24/20 08/24/20 Range/Units 15:25 15:25 15:25 WBC 5.29 (4.8-10.8) K/uL RBC 4.04 L (4.7-6.1) M/uL Hgb 15.0 (14.0-18.0) g/dL Hct 43.2 (42-52) % MCV 106.9 H (80-100) fL MCH 37.1 H (25-34) pg MCHC 34.7 (32-36) g/dL RDW Std Deviation 51.2 H (36.4-46.3) fL RDW Coeff of Heather 12.9 (11.5-14.5) % Plt Count 143 (130-400) K/uL MPV 9.6 (7.4-10.4) fL Immature Gran % (Auto) 0.2 % Neut % (Auto) 54.7 % Lymph % (Auto) 26.5 % Parmer % (Auto) 14.9 % Eos % (Auto) 2.8 % Baso % (Auto) 0.9 % Neut # (Auto) 2.89 (1.4-6.5) K/uL Lymph # (Auto) 1.40 (1.2-3.4) K/uL Parmer # (Auto) 0.79 H (0.11-0.59) K/uL Eos # (Auto) 0.15 (0-0.5) K/uL Baso # (Auto) 0.05 (0-0.2) K/uL Immature Gran # (Auto) 0.01 (0.00-0.02) K/uL RBC Morphology Unremarkable PT (9.0-12.0) Seconds INR (0.9-1.1) Sodium 138 (136-145) mmol/L Potassium 3.0 L (3.5-5.1) mmol/L Chloride 103 (98-107) mmol/L Carbon Dioxide 24 (21-32) mmol/L Anion Gap 11.0 (3-11) BUN 7 (7-18) mg/dl Creatinine 0.86 (0.6-1.4) mg/dl Est Cr Clr Drug Dosing 126.6 ml/min Est GFR ( Amer) 118.0 Est GFR (Non-Af Amer) 101.8 BUN/Creatinine Ratio 8.3 L (10-20) Glucose 97 (70-99) mg/dl Calcium 9.0 (8.5-10.1) mg/dl Phosphorus 2.6 (2.5-4.9) mg/dl Magnesium 1.8 (1.8-2.4) mg/dl Total Bilirubin 1.1 H (0.2-1) mg/dl AST 133 H (15-37) U/L ALT 134 H (12-78) U/L Alkaline Phosphatase 151 H (45-117) U/L Total Protein 8.0 (6.4-8.2) gm/dl Albumin 4.1 (3.4-5.0) gm/dl Globulin 3.9 (2.5-4.0) gm/dl Albumin/Globulin Ratio 1.1 (0.9-2) TSH 1.520 (0.300-4.500) uIu/ml Urine Color Urine Appearance (Clear) Urine pH (4.5-7.5) Ur Specific [place] (1.000-1.030) Urine Protein (Negative) Urine Glucose (UA) (Negative) Urine Ketones (Negative) Urine Blood (Negative) Urine Nitrite (Negative) Urine Bilirubin (Negative) Urine Urobilinogen (Negative) Ur Leukocyte Esterase (Negative) Salicylates < 1.7 L (2.8-20) mg/dl Urine Opiates Screen (Neg) Ur Methadone, Qual (Neg) Acetaminophen < 2 L (10-30) ug/ml Urine Barbiturates (Neg) Ur Phencyclidine (PCP) (Neg) U Amphetamin/Meth Scrn (Neg) MDMA (Ecstasy) Screen (Neg) U Benzodiazepines Scrn (Neg) Ur Cocaine Metabolite (Neg) U Marijuana (THC) Screen (Neg) Ethyl Alcohol mg/dL (0-3) mg/dl 08/24/20 08/24/20 08/24/20 Range/Units 15:25 15:30 17:33 WBC (4.8-10.8) K/uL RBC (4.7-6.1) M/uL Hgb (14.0-18.0) g/dL Hct (42-52) % MCV (80-100) fL MCH (25-34) pg MCHC (32-36) g/dL RDW Std Deviation (36.4-46.3) fL RDW Coeff of Heather (11.5-14.5) % Plt Count (130-400) K/uL MPV (7.4-10.4) fL Immature Gran % (Auto) % Neut % (Auto) % Lymph % (Auto) % Parmer % (Auto) % Eos % (Auto) % Baso % (Auto) % Neut # (Auto) (1.4-6.5) K/uL Lymph # (Auto) (1.2-3.4) K/uL Parmer # (Auto) (0.11-0.59) K/uL Eos # (Auto) (0-0.5) K/uL Baso # (Auto) (0-0.2) K/uL Immature Gran # (Auto) (0.00-0.02) K/uL RBC Morphology PT 11.4 (9.0-12.0) Seconds INR 1.1 (0.9-1.1) Sodium (136-145) mmol/L Potassium (3.5-5.1) mmol/L Chloride (98-107) mmol/L Carbon Dioxide (21-32) mmol/L Anion Gap (3-11) BUN (7-18) mg/dl Creatinine (0.6-1.4) mg/dl Est Cr Clr Drug Dosing ml/min Est GFR ( Amer) Est GFR (Non-Af Amer) BUN/Creatinine Ratio (10-20) Glucose (70-99) mg/dl Calcium (8.5-10.1) mg/dl Phosphorus (2.5-4.9) mg/dl Magnesium (1.8-2.4) mg/dl Total Bilirubin (0.2-1) mg/dl AST (15-37) U/L ALT (12-78) U/L Alkaline Phosphatase (45-117) U/L Total Protein (6.4-8.2) gm/dl Albumin (3.4-5.0) gm/dl Globulin (2.5-4.0) gm/dl Albumin/Globulin Ratio (0.9-2) TSH (0.300-4.500) uIu/ml Urine Color Yellow Urine Appearance Clear (Clear) Urine pH 6.0 (4.5-7.5) Ur Specific [place] 1.010 (1.000-1.030) Urine Protein Negative (Negative) Urine Glucose (UA) Negative (Negative) Urine Ketones Negative (Negative) Urine Blood Negative (Negative) Urine Nitrite Negative (Negative) Urine Bilirubin Negative (Negative) Urine Urobilinogen Negative (Negative) Ur Leukocyte Esterase Negative (Negative) Salicylates (2.8-20) mg/dl Urine Opiates Screen (Neg) Ur Methadone, Qual (Neg) Acetaminophen (10-30) ug/ml Urine Barbiturates (Neg) Ur Phencyclidine (PCP) (Neg) U Amphetamin/Meth Scrn (Neg) MDMA (Ecstasy) Screen (Neg) U Benzodiazepines Scrn (Neg) Ur Cocaine Metabolite (Neg) U Marijuana (THC) Screen (Neg) Ethyl Alcohol mg/dL 85.0 H (0-3) mg/dl 08/24/20 Range/Units 17:33 WBC (4.8-10.8) K/uL RBC (4.7-6.1) M/uL Hgb (14.0-18.0) g/dL Hct (42-52) % MCV (80-100) fL MCH (25-34) pg MCHC (32-36) g/dL RDW Std Deviation (36.4-46.3) fL RDW Coeff of Heather (11.5-14.5) % Plt Count (130-400) K/uL MPV (7.4-10.4) fL Immature Gran % (Auto) % Neut % (Auto) % Lymph % (Auto) % Parmer % (Auto) % Eos % (Auto) % Baso % (Auto) % Neut # (Auto) (1.4-6.5) K/uL Lymph # (Auto) (1.2-3.4) K/uL [place]mer # (Auto) (0.11-0.59) K/uL Eos # (Auto) (0-0.5) K/uL Baso # (Auto) (0-0.2) K/uL Immature Gran # (Auto) (0.00-0.02) K/uL RBC Morphology PT (9.0-12.0) Seconds INR (0.9-1.1) Sodium (136-145) mmol/L Potassium (3.5-5.1) mmol/L Chloride (98-107) mmol/L Carbon Dioxide (21-32) mmol/L Anion Gap (3-11) BUN (7-18) mg/dl Creatinine (0.6-1.4) mg/dl Est Cr Clr Drug Dosing ml/min Est GFR ( Amer) Est GFR (Non-Af Amer) BUN/Creatinine Ratio (10-20) Glucose (70-99) mg/dl Calcium (8.5-10.1) mg/dl Phosphorus (2.5-4.9) mg/dl Magnesium (1.8-2.4) mg/dl Total Bilirubin (0.2-1) mg/dl AST (15-37) U/L ALT (12-78) U/L Alkaline Phosphatase (45-117) U/L Total Protein (6.4-8.2) gm/dl Albumin (3.4-5.0) gm/dl Globulin (2.5-4.0) gm/dl Albumin/Globulin Ratio (0.9-2) TSH (0.300-4.500) uIu/ml Urine Color Urine Appearance (Clear) Urine pH (4.5-7.5) Ur Specific [place] (1.000-1.030) Urine Protein (Negative) Urine Glucose (UA) (Negative) Urine Ketones (Negative) Urine Blood (Negative) Urine Nitrite (Negative) Urine Bilirubin (Negative) Urine Urobilinogen (Negative) Ur Leukocyte Esterase (Negative) Salicylates (2.8-20) mg/dl Urine Opiates Screen Neg (Neg) Ur Methadone, Qual Neg (Neg) Acetaminophen (10-30) ug/ml Urine Barbiturates Neg (Neg) Ur Phencyclidine (PCP) Neg (Neg) U Amphetamin/Meth Scrn Neg (Neg) MDMA (Ecstasy) Screen Neg (Neg) U Benzodiazepines Scrn Neg (Neg) Ur Cocaine Metabolite Neg (Neg) U Marijuana (THC) Screen Neg (Neg) Ethyl Alcohol mg/dL (0-3) mg/dl Blood Pressure Blood Pressure Findings: Elevated blood pressure Blood Pressure Disposition: elevated BP felt to be situational MDM Narrative This patient was evaluated and appeared to be in no significant distress. He was medically evaluated and is cleared for mental health evaluation. Patient did receive 2 mg of sublingual Ativan for anxiety but more importantly potential alcohol withdrawal. EtOH level is noted to be 85. The patient was either drinking earlier in the day or was highly intoxicated overnight and has yet to clear. Nonetheless I think the patient minimizes his alcohol intake overall. Lori quinn has made some significant suicidal gestures and warrants inpatient mental health treatment. He has been referred to [facility] and accepted on a 201. Impression & Plan Suicidal risk, Alcohol intoxication Discharge Plan Visit Data Chief Complaint: Mental Health Evaluation Stated Complaint: MENTAL HEALTH EVAL ED Provider: Yolanda Fuller Discharge Problem: Suicidal risk, Alcohol intoxication Patient Disposition: Admitted As Inpatient Discharge Instructions Interventions: ED Discharge Assessment Last Done: 08/24/20 20:15 Discharge Problem: Alcohol intoxication Qualifiers: Complication of substance-induced condition: uncomplicated Qualified Code(s): F10.920 - Alcohol use, unspecified with intoxication, uncomplicated
[2020-08-24 16:14] LABS: Albumin Level 4.1 gm/dl (3.4-5.0); BUN Creatinine Ratio 8.3 (10-20); Creatinine Clr Calc Pharmacy 126.6 ml/min; Est GFR (Non-African American) 101.8
[2020-08-24 16:22] LABS: Basophils # (auto) 0.05 K/uL (0-0.2); Basophils % (auto) 0.9 %; Eosinophils # (auto) 0.15 K/uL (0-0.5); Eosinophils % (auto) 2.8 %; Hematocrit (blood only) 43.2 % (42-52); Immature Granulocytes # (auto) 0.01 K/uL (0.00-0.02); Immature Granulocytes % (auto) 0.2 %; Lymphocytes % (auto) 26.5 %; Mean Corpuscular Hemoglobin 37.1 pg (25-34); Mean Corpuscular Hgb Conc 34.7 g/dL (32-36); Mean Corpuscular Volume 106.9 fL (80-100); Mean Platelet Volume 9.6 fL (7.4-10.4); Monocytes # (auto) 0.79 K/uL (0.11-0.59); Monocytes % (auto) 14.9 %; Neutrophils # (auto) 2.89 K/uL (1.4-6.5); Neutrophils % (auto) 54.7 %; Platelet Count 143 K/uL (130-400); RBC Morphology Unremarkable; RDW Coefficient of Variation 12.9 % (11.5-14.5); RDW Standard Deviation 51.2 fL (36.4-46.3); Red Blood Count 4.04 M/uL (4.7-6.1); White Blood Count 5.29 K/uL (4.8-10.8)
[2020-08-24 16:24] LABS: Albumin Globulin Ratio 1.1 (0.9-2); Bilirubin,Total 1.1 mg/dl (0.2-1); Globulin 3.9 gm/dl (2.5-4.0); Thyroid Stimulating Hormone 1.52 uIu/ml (0.300-4.500)
[2020-08-24] MEDS ORDERED: POTASSIUM CHLORIDE 20 MEQ TABCR PO STA (16:48)
[2020-08-24 17:00] LABS: Acetaminophen < 2 ug/ml (10-30); Salicylate < 1.7 mg/dl (2.8-20)
[2020-08-24 17:08] LABS: Magnesium 1.8 mg/dl (1.8-2.4); Phosphorus 2.6 mg/dl (2.5-4.9)
[2020-08-24 17:08] LABS: INR 1.1 (0.9-1.1); Prothrombin Time 11.4 Seconds (9.0-12.0)
[2020-08-24 17:45] LABS: Appearance Urine Clear (Clear); Bilirubin Urine Negative (Negative); Blood Urine Negative (Negative); Color Urine Yellow; Glucose Urine UA Negative (Negative); Ketones Urine Negative (Negative); Leukocyte Esterase Urine Negative (Negative); Nitrite Urine Negative (Negative); Protein Urine Negative (Negative); Urobilinogen Urine Negative (Negative)
[2020-08-24 18:10] LABS: Amphetamines+Metham, Urine Neg (Neg); Barbiturates, Urine Neg (Neg); Benzodiazepine, Urine Neg (Neg); Cocaine, Urine Neg (Neg); MDMA (Ecstacy), Urine Neg (Neg); Methadone, Urine Neg (Neg); Opiate, Urine Neg (Neg); Phencyclidine, Urine Neg (Neg)
[2020-08-24] MEDS ORDERED: SODIUM CHLORIDE 0.65% NA SOLN 45 ML (OCEAN) PRN (19:23)
[2020-08-24] MEDS ORDERED: ACETAMINOPHEN 325 MG TAB PO PRN (19:23)
[2020-08-24] MEDS ORDERED: ALUMINUM/MAGNESIUM SUSP 30 ML UDC PO PRN (19:23)
[2020-08-24] MEDS ORDERED: MAGNESIUM HYDROXIDE SUSP 30 ML UDC PO PRN (19:23)
[2020-08-24] MEDS ORDERED: LORazepam 1 MG TAB PO PRN (19:23)
[2020-08-24] MEDS ORDERED: BISMUTH SUBSALICYLATE LIQD 236 ML PO PRN (19:23)
[2020-08-24] MEDS ORDERED: NITROGLYCERIN SL 0.4 MG/TAB TAB SL PRN (19:27)
[2020-08-24] MEDS ORDERED: LIDOCAINE HCL 5% OINT 30 GM TUBE TOP PRN (19:27)
[2020-08-24] MEDS ORDERED: PRIMIDONE 50 MG TAB PO PRN (19:27)
[2020-08-24] MEDS ORDERED: FLUTICASONE PROPIONATE NA SPR 16 GM BTL NAE PRN (19:27)
[2020-08-24] MEDS: POT PHOSPHATE MONOBASIC W/ SOD TAB PO SCH (21:56)
[2020-08-24] MEDS: dilTIAZem HCL 180 MG CAPCR PO SCH ×2 (21:57→22:05)
[2020-08-24] MEDS: ASPIRIN 81 MG ECTAB PO SCH ×2 (21:58→22:05)
[2020-08-24] MEDS: PANTOprazole 40 MG TAB PO SCH ×2 (21:59→22:06)
[2020-08-24] MEDS: CLOPIDOGREL BISULFATE 75 MG TAB PO SCH ×2 (22:02→22:05)
[2020-08-24] MEDS: lisinopriL 5 MG TAB PO SCH ×2 (22:03→22:06)
[2020-08-24] MEDS: SERTRALINE HCL 50 MG TABLET PO SCH ×2 (22:04→22:06)
[2020-08-25] MEDS ORDERED: CLOPIDOGREL BISULFATE 75 MG TAB PO SCH (09:00)
[2020-08-25] MEDS ORDERED: dilTIAZem HCL 180 MG CAPCR PO SCH (09:00)
[2020-08-25] MEDS ORDERED: lisinopriL 5 MG TAB PO SCH (09:00)
[2020-08-25] MEDS ORDERED: ASPIRIN 81 MG ECTAB PO SCH (09:00)
[2020-08-25] MEDS ORDERED: PANTOprazole 40 MG TAB PO SCH (09:00)
[2020-08-25] MEDS ORDERED: SERTRALINE HCL 50 MG TABLET PO SCH (09:00)
--- NOTE | 2020-08-25 09:25 | History & Physical ---
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 (Diltiazem Hcl 180 Mg Capcr) 180 mg PO HS [facility] Stop: 09/23/20 21:14 Last Admin: 08/24/20 22:05 Dose: Not Given Documented by: Fluticasone Propionate (Fluticasone Propionate Na Spr 16 Gm Btl) 1 sprays ESTRELLITA DAILY PRN PRN Reason: Allergy Symptoms Stop: 09/23/20 19:26 Hydroxyzine HCl (Hydroxyzine Hcl 25 Mg Tab) 50 mg PO HSZ PRN PRN Reason: Insomnia Stop: 09/23/20 19:22 Last Admin: 08/24/20 22:43 Dose: 50 mg Documented by: Hydroxyzine HCl (Hydroxyzine Hcl 25 Mg Tab) 25 mg PO Q4H PRN PRN Reason: Anxiety Stop: 09/23/20 19:22 Lidocaine (Lidocaine Hcl 5% Oint 30 Gm Tube) 1 appln TOP DAILY PRN PRN Reason: anal irritation Stop: 09/23/20 19:26 Lisinopril (Lisinopril 5 Mg Tab) 5 mg PO HS SARA Stop: 09/23/20 21:14 Last Admin: 08/24/20 22:06 Dose: Not Given Documented by: Lorazepam (Lorazepam 1 Mg Tab) 1 - 3 mg PO UD PRN; Protocol PRN Reason: EtoH Withdrawal AWSS 6-10+ Stop: 09/23/20 19:22 Magnesium Hydroxide (Magnesium Hydroxide Susp 30 Ml Udc) 30 ml PO DAILY PRN PRN Reason: Constipation Stop: 09/23/20 19:22 Nitroglycerin (Nitroglycerin Sl 0.4 Mg/Tab Tab) 0.4 mg SL UD PRN PRN Reason: CHEST PAINS Stop: 09/23/20 19:26 Pantoprazole Sodium (Pantoprazole 40 Mg Tab) 40 mg PO HS SARA Stop: 09/23/20 21:14 Last Admin: 08/24/20 22:06 Dose: Not Given Documented by: Potassium Phosphate (Pot Phosphate Monobasic W/ Sod Tab) 2 tab PO TID SARA Stop: 09/23/20 20:59 Last Admin: 08/24/20 21:56 Dose: 2 tab Documented by: Primidone (Primidone 50 Mg Tab) 50 mg PO QD PRN PRN Reason: tremor Stop: 09/23/20 19:26 Sertraline HCl (Sertraline Hcl 50 Mg Tablet) 50 mg PO HS SARA Stop: 09/23/20 21:14 Last Admin: 08/24/20 22:06 Dose: Not Given Documented by: Sodium Chloride (Sodium Chloride 0.65% Na Soln 45 Ml ([place])) 1 - 2 sprays NA PRN PRN PRN Reason: Nasal Dryness/Congestion Stop: 09/23/20 19:22
[2020-08-25] MEDS: POT PHOSPHATE MONOBASIC W/ SOD TAB PO SCH ×3 (09:40→21:38)
--- NOTE | 2020-08-25 11:28 | Electrocardiogram Report ---
Test Reason : Blood Pressure : / mmHG Vent. Rate : 061 BPM Atrial Rate : 061 BPM P-R Int : 182 ms QRS Dur : 086 ms QT Int : 468 ms P-R-T Axes : -08 -13 -10 degrees QTc Int : 471 ms Normal sinus rhythm Minimal voltage criteria for LVH, may be normal variant Borderline ECG When compared with ECG of 08-JUL-2020 16:13, QT has lengthened Confirmed by Joseph Reina ([id number]) on 08/25/2020 11:27:30 AM Referred By: Confirmed By:Joseph Reina
[2020-08-25] MEDS: ASPIRIN 81 MG ECTAB PO SCH (21:39)
[2020-08-25] MEDS: dilTIAZem HCL 180 MG CAPCR PO SCH (21:39)
[2020-08-25] MEDS: lisinopriL 5 MG TAB PO SCH (21:40)
[2020-08-25] MEDS: PANTOprazole 40 MG TAB PO SCH (21:40)
[2020-08-25] MEDS: CLOPIDOGREL BISULFATE 75 MG TAB PO SCH (21:40)
[2020-08-25] MEDS: SERTRALINE HCL 50 MG TABLET PO SCH (21:41)
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
[2020-08-26] MEDS: POT PHOSPHATE MONOBASIC W/ SOD TAB PO SCH ×3 (08:44→22:15)
[2020-08-26] MEDS ORDERED: SERTRALINE HCL 50 MG TABLET PO SCH (22:00)
[2020-08-26] MEDS: ASPIRIN 81 MG ECTAB PO SCH (22:15)
[2020-08-26] MEDS: CLOPIDOGREL BISULFATE 75 MG TAB PO SCH (22:15)
[2020-08-26] MEDS: lisinopriL 5 MG TAB PO SCH (22:16)
[2020-08-26] MEDS: dilTIAZem HCL 180 MG CAPCR PO SCH (22:16)
[2020-08-26] MEDS: PANTOprazole 40 MG TAB PO SCH (22:17)
[2020-08-27] MEDS: POT PHOSPHATE MONOBASIC W/ SOD TAB PO SCH (09:05)
--- NOTE | 2020-08-27 09:35 | Discharge Summary ---
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 For questions or emergencies related to your hospital stay, please contact the Inpatient Behavioral Health Unit at [phone]. A enforcement manager is on-call 21/06 for the Behavioral Health Unit for emergencies At any time you feel your situation is an emergency, you may also call 911 immediately. Pending Studies at Discharge: No Stand-Alone Forms: My [facility] [employer], Smoking Cessation, Suicide Prevention Resources Medications and DC Order Prescriptions: New sertraline 50 mg Tablet 75 mg PO HS 30 Days Qty: 45 RF: 0 Continued lidocaine 5 % ointment 1 appln TOP UD PRN (Reason: anal irritation) Qty: 30 RF: 0 fluticasone propionate [Flonase Allergy Relief] 50 mcg/actuation spray,suspension 1 sprays intranasal DAILY PRN (Reason: Allergy Symptoms) Qty: 1 RF: 0 potassium phosphate, monobasic 500 mg tablet,soluble 500 mg PO TID Qty: 10 RF: 0 primidone 50 mg tablet 50 mg PO .QD PRN (Reason: tremor) Qty: 30 RF: 2 Vaqta (PF) 50 unit/mL syringe 1 ml IM ONCE Qty: 1 RF: 0 nitroglycerin [Nitrostat] 0.4 mg Tablet, Sublingual 0.4 mg Sublingual UD PRN (Reason: CHEST PAINS) RF: 0 Changed diltiazem HCl 180 mg capsule,extended release 24hr 180 mg PO HS Qty: 30 RF: 5 pantoprazole 40 mg tablet,delayed release (DR/EC) 40 mg PO HS Qty: 30 RF: 5 clopidogrel [Plavix] 75 mg tablet 75 mg PO HS Qty: 90 RF: 3 lisinopril 5 mg tablet 5 mg PO HS Qty: 90 RF: 3 aspirin 81 mg Tablet,Delayed Release (Dr/Ec) 81 mg PO HS Qty: 0 RF: 0 Discontinued sertraline 50 mg tablet 50 mg PO QAM Qty: 30 RF: 5 Discharge Orders: Discharge Order (Routine); Ordered 08/27/20 Ordered By: Diann Rod Admission Data Admit Date/Time: 08/24/20 19:23 Attending Provider: Michelle Doshi Admit Provider: Michelle Doshi Primary Care Provider: Moise Drake Other Interventions: PSY Interdisciplinary Discharge Planning Last Done: 08/27/20 08:43 Coding Level of Care Code 83503 D/C day mgmt > 30 min Diagnoses Suicidal ideation R45.851 Depression F32.9 PTSD (post-traumatic stress disorder) F43.10 Alcohol abuse F10.10 Hypokalemia E87.6 Benign essential tremor G25.0 RUSSELL (nonalcoholic steatohepatitis) K75.81 CAD (coronary artery disease) I25.10 Hypertension I10 GERD (gastroesophageal reflux disease) K21.9
== END 2020-08-27 11:48 | disposition home or self-care (01) | DRG 885 ==
LOC: ED 14:52 → 3S 19:23

== ENCOUNTER 2021-09-08 11:46 | Observation (INO) ==
[2021-09-08 12:12] LABS: Hematocrit (blood only) 39.7 % (42-52); Hemoglobin 14.2 g/dL (14.0-18.0); Mean Corpuscular Hemoglobin 32.9 pg (25-34); Mean Corpuscular Hgb Conc 35.8 g/dL (32-36); Mean Corpuscular Volume 92.1 fL (80-100); Mean Platelet Volume 9.3 fL (7.4-10.4); Platelet Count 175 K/uL (130-400); RDW Coefficient of Variation 14.1 % (11.5-14.5); RDW Standard Deviation 47.5 fL (36.4-46.3); Red Blood Count 4.31 M/uL (4.7-6.1); White Blood Count 7.28 K/uL (4.8-10.8)
[2021-09-08 12:22] LABS: INR 1.1 (0.9-1.1); Partial Thromboplastin Time 26.5 Seconds (21.0-31.0); Prothrombin Time 10.7 Seconds (9.0-12.0)
[2021-09-08 12:31] LABS: Albumin Level 3.9 gm/dl (3.4-5.0); BUN Creatinine Ratio 18.2 (10-20); Calcium 9.5 mg/dl (8.5-10.1); Creatinine Clr Calc Pharmacy 120.2 ml/min; Est GFR (African American) 113.5 ml/min; Est GFR (Non-African American) 97.9 ml/min; Potassium 3.7 mmol/L (3.5-5.1)
[2021-09-08 12:34] LABS: Albumin Globulin Ratio 1.2 (0.9-2); Bilirubin,Total 1.1 mg/dl (0.2-1); Globulin 3.3 gm/dl (2.5-4.0); Total Protein 7.2 gm/dl (6.4-8.2)
--- NOTE | 2021-09-08 14:10 | Emergency Department Note ---
Impression & Plan Acute lower GI bleeding ED Provider Note NAME: BETO OLIVERA AGE: 50 SEX: M : 1970 ARRIVES VIA: Walk-In INFORMANT: Patient, ED PROVIDER(S): Eulogio Cruz DO CHIEF COMPLAINT: Rectal bleeding HPI: The patient is a 50-year-old male who presented to the emergency department for rectal bleeding. The patient had a colonoscopy in July at our facility. He was found to have multiple polyps which were removed but then he was found to have a very large polyp that was very vascular and just above the rectum. This was felt to be better managed at a tertiary center and the patient was referred to [facility]. The patient had a colonoscopy at [place] on the first of this month. He had removal of the polyp. Afterwards he started having significant bleeding and was seen in our facility. He was stabi lized and able to be discharged home. He was feeling well and has had no follow-up with his own GI doctor but then started having bleeding over the course the last few days. He describes the bleeding is intermittent. He describes it as mixed with stool. He also describes lower abdominal burning. He denies having any fever or vomiting. He has had no weakness in the arms or legs. He called his GI doctor today and was referred to the emergency department for further evaluation. The patient currently takes Plavix. ROS: See above HPI for pertinent positives & negatives. A total of 10 systems reviewed and were otherwise negative. PAST MEDICAL HISTORY: See Below PAST SURGICAL HISTORY: See Below FAMILY HISTORY: See Below SOCIAL HISTORY: See Below HOME MEDICATIONS: See Below ALLERGIES: See Below VITALS: See Below PHYSICAL EXAMINATION: GENERAL: Patient is awake alert in no acute distress patient is resting comfortably and showing no signs of anxiety EYES: The conjunctivae are clear. The pupils are round and reactive. EARS, NOSE, MOUTH AND THROAT: The nose is without any evidence of any deformity. NECK: The neck is nontender and supple. RESPIRATORY: Normal respiratory effort is noted there is no evidence of wheezing rhonchi or rales CARDIOVASCULAR: Regular rate and rhythm noted there no murmurs rubs or gallops normal S1 normal S2. GASTROINTESTINAL: The abdomen is soft and nondistended. There is no tenderness guarding rigidity. Rectal exam revealed some blood mixed with brown stool which was strongly heme positive. MUSCULOSKELETAL/EXTREMITIES: There is no evidence of gross deformity full range of motion is noted in the hips and shoulders. SKIN: There is no obvious evidence of any rash. There are no petechiae, pallor or cyanosis noted. NEUROLOGIC: Patient is awake alert and oriented x3. MEDICAL DECISION MAKING: The patient is a 50-year-old male who presented to the emergency department for lower GI bleeding. This is the second time the patient presented to the emergency department for lower GI bleeding. He is status post colonoscopy with removal of multiple polyps. The second polypectomy was a rather large vascular mass that was just above the rectum. Pathology is still pending. I did discuss the patient's presentation with his primary swing saw operator. At this time he feels that the patient given his active bleeding may require a procedure to further evaluate the source as well as possibly treat the source of the bleeding. He does recommend that we keep the patient for further evaluation and he will likely require a trip to the GI suite. I also discussed this case with the on-call [facility] hospitalist. They have agreed to evaluate the patient in the emergency department. Triage Nursing notes reviewed. Prior medical records reviewed Vital Signs: reviewed and remarkable for no significant abnormalities Differential diagnosis: Diverticulosis, AVM, coagulopathy, colitis, inflammatory bowel disease, malignancy, Roxann-Montero tear, esophagitis, peptic ulcer disease, variceal bleed, gastritis, epistaxis, fissure, hemorrhoids, as well as other pathologies. ER treatment provided: See below Diagnostics interpreted by me: ECG: none Cardiac Monitoring: An order was placed for continuous cardiac monitoring. The monitor shows a rate of 47 bpm with sinus bradycardia rhythm. Laboratory studies: As stated above and show below. Imaging studies: See below Consultation(s): 1405: I discussed the patient's condition with Dr Atkinson who did the initial colonoscopy. 1435: I discussed this case with Dr. Guzman who [facility]. Past Med/Surg History Medical History Acute renal failure (ARF) TO FOLLOW UP WITH ANUALLY Anal irritation REASON FOR LIDOCAINE OINTMENT PRN Anxiety and depression Arthritis LUMBAR/THORACIC SPINE Atrial tachycardia 2018 2 event and had 2 stents placed CKD (chronic kidney disease) stage 2, GFR 60-89 ml/min Diverticular disease Fatty liver GERD (gastroesophageal reflux disease) H/O esophageal spasm History of anemia History of rhabdomyolysis History of stomach ulcers HTN (hypertension) Hx of cardiac murmur Hx of esophageal varices Localized swelling, mass or lump of neck LEFT SIDE "BLOCKED LYMPH NODE" Migraine occular Myocardial Infarction 2018 X 2 RUSSELL (nonalcoholic steatohepatitis) PTSD (post-traumatic stress disorder) Restless leg syndrome Sleep apnea hx of and no issues Tremor RT/LEFT HANDS Surgical History H/O knee surgery RT Hemorrhoid BANDING IN PAST History of arthroscopy of left shoulder History of cardiac cath 2 STENTS PLACED>MAY & JUNE 2018 AT [facility] JUN 2019 AT [facility] NO STENTS History of colonoscopy History of esophagogastroduodenoscopy (EGD) History of heart artery stent 2 STENTS PLACED 2017 History of liver biopsy 2019 History of neurologic surgery 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 History of tooth extraction Family History Grandfather Family history of esophageal cancer Mother Diabetes Myocardial infarction Hypertension Family history of diabetes mellitus Father Myocardial infarction Hypertension Grandfather (Maternal) Prostate cancer Family hx of colon cancer Brother Myocardial infarction Grandfather (Paternal) Myocardial infarction Grandmother (Paternal) Myocardial infarction Other Colon cancer No family history of adverse response to anesthesia Denies family history of Ovarian cancer Breast cancer Social History Smoking Status: Never smoker Tobacco Type: Cigarettes Age Started Using Tobacco: 17; Age Quit Using Tobacco: 44; packs per day: 1; Number of Years Since Quit: 4; Second Hand Exposure: No; Hx Alcohol Use: No (quit 2019) Hx Substance Use: No Preferred Language: Guyanese Communication Ability: Effective Visual Impairment: No Limitations 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: Normal Event Sales Manager Required: No Beliefs That Will Affect Care: None marital status: Current Living Situation: Spouse current occupational status: other current occupation: unemployed x 2 years b/c of "medical conditions" Feels Safe at Home: Yes Childhood Exposure to Second-Hand Smoke: Yes Dental Care, Regularly: Yes Physical Activity Frequency: Does not Exercise Seatbelt Use: always Sunscreen Use: Yes Assistive Devices: Glasses Allergies Allergies Allergy/AdvReac Type Severity Reaction Status Date / Time mushroom Allergy Severe ANAPHALYAXSIS, Verified 10/11/21 14:18 HIVES doxycycline Allergy Intermediate "CPK Verified 09/08/21 14:18 levels get out of whack" daptomycin AdvReac Intermediate Rhabdomyoly Verified 09/08/21 14:18 sis mirtazapine AdvReac Mild ITCHY Verified 09/08/21 14:18 FEELING ALL OVER/ARMS Home Meds Home Medications Medication Instructions Recorded Confirmed nitroglycerin 0.4 mg sublingual 0.4 mg SUBLINGUAL UD PRN 10/04/18 09/08/21 tablet (Nitrostat) fluticasone propionate 50 1 sprays INTRANASAL DAILY PRN #1 gm 06/03/20 09/08/21 mcg/actuation nasal spray,suspension (Flonase Allergy Relief) multivitamin (Daily Multi-Vitamin) 1 tab PO HS 09/19/20 09/08/21 acetaminophen 500 mg tablet 500 - 1,000 mg PO HS 06/19/21 09/08/21 (Tylenol Extra Strength) escitalopram oxalate 10 mg tablet 10 mg PO HS 08/05/21 09/08/21 (Lexapro) hydroxyzine pamoate 25 mg capsule 25 mg PO HS cap 08/05/21 09/08/21 (Vistaril) lorazepam 1 mg tablet (Ativan) 1 mg PO HS 08/15/21 09/08/21 vitamin B complex 1 tab PO DAILY 09/08/21 09/08/21 Previous Rx's Medication Instructions Recorded lidocaine 5 % topical ointment 1 appln TOP UD PRN #30 gm 03/28/20 aspirin 81 mg tablet,delayed 81 mg PO HS #0 tab 08/27/20 release atorvastatin 20 mg tablet 20 mg PO HS #90 tab 09/19/20 hydrocortisone 2.5 % topical cream 1 applic TOPICAL BID #30 g 10/14/20 primidone 50 mg tablet 50 mg PO DAILY PRN 30 Days #30 tab 10/16/20 clopidogrel 75 mg tablet (Plavix) 75 mg PO HS #90 tab 11/19/20 diltiazem HCl 180 mg 180 mg PO HS #30 cap 03/13/21 capsule,extended release 24 hr pantoprazole 40 mg tablet,delayed 40 mg PO HS #90 tab 04/03/21 release ketoconazole 2 % topical cream 1 applic TOPICAL BID #60 g 04/30/21 lisinopril 10 mg tablet 10 mg PO HS #90 tab 08/05/21 oxycodone-acetaminophen 5 mg-325 1 tab PO Q8H PRN #14 tab 08/30/21 mg tablet (Percocet) tadalafil 2.5 mg tablet (Cialis) 2.5 mg PO HS #30 tab 09/01/21 metformin 500 mg tablet 1,000 mg PO BID #360 tab 09/04/21 metoprolol succinate 25 mg 25 mg PO HS #90 tab 09/05/21 tablet,extended release 24 hr Results & Data (ED) Vital Signs Vital Signs - 24 hr 09/08/21 11:50 09/08/21 13:34 09/08/21 15:16 Temperature 36.9 C Temperature Source Temporal Artery Scan Pulse Rate 64 Pulse Rate [Finger] 48 L 49 L Pulse Rate from SpO2 Sensor Pulse Rhythm Regular Pulse Rhythm [Finger] Regular Regular Pulse Strength Normal Pulse Strength [Finger] Normal Normal Respiratory Rate 18 16 16 Respiratory Effort / Characteristics Non-Labored Spontaneous Non-Labored Spontaneous Non-Labored Spontaneous Respiratory Depth Normal Normal Normal Respiratory Pattern Regular Blood Pressure 132/77 Blood Pressure [Right Arm] 141/78 H 130/77 Blood Pressure Mean 95 Blood Pressure Mean [Right Arm] 99 94 Blood Pressure Position [Right Arm] Sitting Sitting Pulse Oximetry 97 98 97 Oxygen Delivery Method Room Air Room Air Room Air Sepsis Recent Fever Within 48 Hours No Sepsis New/Unexplained Change in Mental Status No Sepsis Action Taken by Nursing No Action Required 09/08/21 15:44 09/08/21 15:50 09/08/21 16:00 Temperature Temperature Source Pulse Rate 48 L 48 L 57 L Pulse Rate [Finger] Pulse Rate from SpO2 Sensor 47 L 50 L 58 L Pulse Rhythm Pulse Rhythm [Finger] Pulse Strength Pulse Strength [Finger] Respiratory Rate 15 17 18 Respiratory Effort / Characteristics Respiratory Depth Respiratory Pattern Blood Pressure Blood Pressure [Right Arm] Blood Pressure Mean Blood Pressure Mean [Right Arm] Blood Pressure Position [Right Arm] Pulse Oximetry 97 98 98 Oxygen Delivery Method Sepsis Recent Fever Within 48 Hours Sepsis New/Unexplained Change in Mental Status Sepsis Action Taken by Nursing 09/08/21 16:10 09/08/21 16:20 09/08/21 16:30 Temperature Temperature Source Pulse Rate 49 L 58 L 47 L Pulse Rate [Finger] Pulse Rate from SpO2 Sensor 49 L 57 L 47 L Pulse Rhythm Pulse Rhythm [Finger] Pulse Strength Pulse Strength [Finger] Respiratory Rate 18 12 18 Respiratory Effort / Characteristics Respiratory Depth Respiratory Pattern Blood Pressure Blood Pressure [Right Arm] Blood Pressure Mean Blood Pressure Mean [Right Arm] Blood Pressure Position [Right Arm] Pulse Oximetry 96 98 97 Oxygen Delivery Method Sepsis Recent Fever Within 48 Hours Sepsis New/Unexplained Change in Mental Status Sepsis Action Taken by Nursing 09/08/21 16:40 09/08/21 16:50 09/08/21 17:02 Temperature Temperature Source Pulse Rate 48 L 45 L 97 H Pulse Rate [Finger] Pulse Rate from SpO2 Sensor 47 L 45 L 90 Pulse Rhythm Pulse Rhythm [Finger] Pulse Strength Pulse Strength [Finger] Respiratory Rate 21 24 17 Respiratory Effort / Characteristics Respiratory Depth Respiratory Pattern Blood Pressure Blood Pressure [Right Arm] Blood Pressure Mean Blood Pressure Mean [Right Arm] Blood Pressure Position [Right Arm] Pulse Oximetry 97 96 91 Oxygen Delivery Method Sepsis Recent Fever Within 48 Hours Sepsis New/Unexplained Change in Mental Status Sepsis Action Taken by Nursing 09/08/21 17:10 09/08/21 17:20 09/08/21 17:30 Temperature Temperature Source Pulse Rate 47 L 47 L 47 L Pulse Rate [Finger] Pulse Rate from SpO2 Sensor 46 L 48 L 46 L Pulse Rhythm Pulse Rhythm [Finger] Pulse Strength Pulse Strength [Finger] Respiratory Rate 20 16 16 Respiratory Effort / Characteristics Respiratory Depth Respiratory Pattern Blood Pressure Blood Pressure [Right Arm] Blood Pressure Mean Blood Pressure Mean [Right Arm] Blood Pressure Position [Right Arm] Pulse Oximetry 96 98 98 Oxygen Delivery Method Sepsis Recent Fever Within 48 Hours Sepsis New/Unexplained Change in Mental Status Sepsis Action Taken by Nursing 09/08/21 17:40 09/08/21 17:50 09/08/21 18:00 Temperature Temperature Source Pulse Rate 45 L 48 L 46 L Pulse Rate [Finger] Pulse Rate from SpO2 Sensor 46 L 51 L 46 L Pulse Rhythm Pulse Rhythm [Finger] Pulse Strength Pulse Strength [Finger] Respiratory Rate 15 18 15 Respiratory Effort / Characteristics Respiratory Depth Respiratory Pattern Blood Pressure Blood Pressure [Right Arm] Blood Pressure Mean Blood Pressure Mean [Right Arm] Blood Pressure Position [Right Arm] Pulse Oximetry 97 96 97 Oxygen Delivery Method Sepsis Recent Fever Within 48 Hours Sepsis New/Unexplained Change in Mental Status Sepsis Action Taken by Nursing 09/08/21 18:10 Temperature Temperature Source Pulse Rate 47 L Pulse Rate [Finger] Pulse Rate from SpO2 Sensor 48 L Pulse Rhythm Pulse Rhythm [Finger] Pulse Strength Pulse Strength [Finger] Respiratory Rate 16 Respiratory Effort / Characteristics Respiratory Depth Respiratory Pattern Blood Pressure Blood Pressure [Right Arm] Blood Pressure Mean Blood Pressure Mean [Right Arm] Blood Pressure Position [Right Arm] Pulse Oximetry 98 Oxygen Delivery Method Sepsis Recent Fever Within 48 Hours Sepsis New/Unexplained Change in Mental Status Sepsis Action Taken by Assisted Medications Current Medication List: was personally reviewed by me Laboratory Data Attestation: I reviewed the patient's lab results. Result diagrams: 09/08/21 11:55 09/08/21 11:55 Lab Results 09/08/21 09/08/21 09/08/21 Range/Units 11:55 11:55 11:55 WBC 7.28 (4.8-10.8) K/uL RBC 4.31 L (4.7-6.1) M/uL Hgb 14.2 (14.0-18.0) g/dL Hct 39.7 L (42-52) % MCV 92.1 (80-100) fL MCH 32.9 (25-34) pg MCHC 35.8 (32-36) g/dL RDW Std Deviation 47.5 H (36.4-46.3) fL RDW Coeff of Heather 14.1 (11.5-14.5) % Plt Count 175 (130-400) K/uL MPV 9.3 (7.4-10.4) fL PT 10.7 (9.0-12.0) Seconds INR 1.1 (0.9-1.1) APTT 26.5 (21.0-31.0) Seconds PTT Ratio 1.0 Sodium 138 (136-145) mmol/L Potassium 3.7 (3.5-5.1) mmol/L Chloride 108 H (98-107) mmol/L Carbon Dioxide 20 L (21-32) mmol/L Anion Gap 10.0 (3-11) BUN 17 (7-18) mg/dl Creatinine 0.91 (0.6-1.4) mg/dl Est Cr Clr Drug Dosing 120.2 ml/min Est GFR ( Amer) 113.5 ml/min Est GFR (Non-Af Amer) 97.9 ml/min BUN/Creatinine Ratio 18.2 (10-20) Glucose 105 H (70-99) mg/dl Calcium 9.5 (8.5-10.1) mg/dl Total Bilirubin 1.1 H (0.2-1) mg/dl AST 16 (15-37) U/L ALT 30 (12-78) U/L Alkaline Phosphatase 87 (45-117) U/L Total Protein 7.2 (6.4-8.2) gm/dl Albumin 3.9 (3.4-5.0) gm/dl Globulin 3.3 (2.5-4.0) gm/dl Albumin/Globulin Ratio 1.2 (0.9-2) COVID-19 Eval Order SARS-CoV-2 (PCR) (Negative) Blood Type Antibody Screen 09/08/21 09/08/21 09/08/21 Range/Units 11:56 15:15 15:15 WBC (4.8-10.8) K/uL RBC (4.7-6.1) M/uL Hgb (14.0-18.0) g/dL Hct (42-52) % MCV (80-100) fL MCH (25-34) pg MCHC (32-36) g/dL RDW Std Deviation (36.4-46.3) fL RDW Coeff of Heather (11.5-14.5) % Plt Count (130-400) K/uL MPV (7.4-10.4) fL PT (9.0-12.0) Seconds INR (0.9-1.1) APTT (21.0-31.0) Seconds PTT Ratio Sodium (136-145) mmol/L Potassium (3.5-5.1) mmol/L Chloride (98-107) mmol/L Carbon Dioxide (21-32) mmol/L Anion Gap (3-11) BUN (7-18) mg/dl Creatinine (0.6-1.4) mg/dl Est Cr Clr Drug Dosing ml/min Est GFR ( Amer) ml/min Est GFR (Non-Af Amer) ml/min BUN/Creatinine Ratio (10-20) Glucose (70-99) mg/dl Calcium (8.5-10.1) mg/dl Total Bilirubin (0.2-1) mg/dl AST (15-37) U/L ALT (12-78) U/L Alkaline Phosphatase (45-117) U/L Total Protein (6.4-8.2) gm/dl Albumin (3.4-5.0) gm/dl Globulin (2.5-4.0) gm/dl Albumin/Globulin Ratio (0.9-2) COVID-19 Eval Order Covid19 at [facility] SARS-CoV-2 (PCR) NEGATIVE (Negative) Blood Type O Positive Antibody Screen NEGATIVE Discharge Plan Visit Data Chief Complaint: Rectal Bleed Stated Complaint: RECTAL BLEEDING ED Provider: Eulogio Cruz Discharge Problem: Acute lower GI bleeding Patient Disposition: Being Evaluated by Hospitalist Forms Stand Alone Forms: [facility] Prescriptions Prescriptions: No Action lidocaine 5 % ointment 1 appln TOP UD PRN (Reason: anal irritation) Qty: 30 RF: 0 primidone 50 mg tablet 50 mg PO DAILY PRN (Reason: tremor) 30 Days Qty: 30 RF: 3 clopidogrel [Plavix] 75 mg tablet 75 mg PO HS Qty: 90 RF: 3 diltiazem HCl 180 mg capsule,extended release 24hr 180 mg PO HS Qty: 30 RF: 5 pantoprazole 40 mg tablet,delayed release (DR/EC) 40 mg PO HS Qty: 90 RF: 5 tadalafil [Cialis] 2.5 mg tablet 2.5 mg PO HS Qty: 30 RF: 5 metoprolol succinate 25 mg tablet extended release 24 hr 25 mg PO HS Qty: 90 RF: 3 fluticasone propionate [Flonase Allergy Relief] 50 mcg/actuation spr ay,suspension 1 sprays intranasal DAILY PRN (Reason: Allergy Symptoms) Qty: 1 RF: 0 escitalopram oxalate [Lexapro] 10 mg tablet 10 mg PO HS RF: 0 hydroxyzine pamoate [Vistaril] 25 mg capsule 25 mg PO HS RF: 0 lisinopril 10 mg tablet 10 mg PO HS Qty: 90 RF: 3 ketoconazole 2 % cream 1 applic topical BID Qty: 60 RF: 0 metformin 500 mg tablet 1,000 mg PO BID Qty: 360 RF: 5 multivitamin [Daily Multi-Vitamin] Tablet 1 tab PO HS RF: 0 atorvastatin 20 mg tablet 20 mg PO HS Qty: 90 RF: 3 hydrocortisone 2.5 % cream 1 applic topical BID Qty: 30 RF: 0 nitroglycerin [Nitrostat] 0.4 mg Tablet, Sublingual 0.4 mg Sublingual UD PRN (Reason: CHEST PAINS) RF: 0 aspirin 81 mg Tablet,Delayed Release (Dr/Ec) 81 mg PO HS Qty: 0 RF: 0 vitamin B complex Tablet 1 tab PO DAILY RF: 0 acetaminophen [Tylenol Extra Strength] 500 mg Tablet 500 - 1,000 mg PO HS RF: 0 lorazepam [Ativan] 1 mg Tablet 1 mg PO HS RF: 0 oxycodone-acetaminophen [Percocet] 5-325 mg tablet 1 tab PO Q8H PRN (Reason: pain) Qty: 14 RF: 0 Referrals Referrals: Moise Drake DO [Primary Care Provider] -
[2021-09-08] MEDS ORDERED: PRIMIDONE 50 MG TAB PO PRN (20:07)
[2021-09-08] MEDS ORDERED: ONDANSETRON INJ 2 MG/ML 2 ML VIAL IV PRN (20:07)
[2021-09-08] MEDS ORDERED: ACETAMINOPHEN 325 MG TAB PO PRN (20:07)
[2021-09-08] MEDS ORDERED: oxyCODONE/ACETAMINOPHEN 5mg/325mg TAB PO PRN (20:07)
[2021-09-08] MEDS ORDERED: LIDOCAINE 5% OINT 30 GM TUBE TOP PRN (20:07)
[2021-09-08] MEDS ORDERED: FLUTICASONE PROPIONATE NA SPR 16 GM BTL PRN (20:07)
[2021-09-08] MEDS: PANTOprazole 40 MG TAB PO SCH (21:26)
[2021-09-08] MEDS: ATORVASTATIN 20 MG TAB PO SCH (21:26)
[2021-09-08] MEDS: ESCITALOPRAM OXALATE 10 MG TAB PO SCH (21:27)
[2021-09-08] MEDS: HYDROCORTISONE 2.5% CR 30 GM TUBE EXT SCH (21:28)
[2021-09-08] MEDS: lisinopril 10 MG TAB PO SCH (21:28)
[2021-09-08] MEDS: KETOCONAZOLE 2% CR 15 GM TUBE EXT SCH (21:28)
[2021-09-08] MEDS: LORazepam 1 MG TAB PO SCH (22:07)
[2021-09-08] MEDS: METOPROLOL SUCC 25MG EXT REL TAB PO SCH (22:08)
[2021-09-08] MEDS: dilTIAZem HCL 180 MG CAPCR PO SCH (22:08)
--- NOTE | 2021-09-08 22:23 | History & Physical Report ---
Date of Service September 08, 2021 Assessment & Plan (1) Rectal bleeding: Plan: tubulovillous adenoma removed about 9 days ago at [place] with Dr. Stoddard past 24 hours he started to have bright red blood per rectum, slightly painful hurts to move bowels he was taking his aspirin/Plavix, last dose was evening on 09/07 called [facility] today, told to go to ED Hb is 14, BP stable will make NPO after midnight, can have clears for now likely for colonoscopy tomorrow to see if area can be cauterized/clipped check H/H in the morning (2) Anal or rectal pain: Admission and Anticipated Discharge Date Admission Date: September 08, 2021 History of Present Illness Chief Complaint: I've had rectal bleeding Primary Care Provider: Moise Drake, DO 50 yo male with recent history of colonoscopy that showed some small polyps but also large vascular mass in rectum. The polyps were removed by Dr. Atkinson but the patient was sent to [facility] for evaluation of the vascular rectal mass. The colonoscopy was done on 08/20/21. Pathology showed tubular adenoma and hyperplastic polyp. 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 At [place] he saw Dr. Stoddard who performed endoscopic resection of the mass on 08/29/21. The patient says he had held his aspirin and Plavix after the procedure, just resumed them a few days ago. For the past 36 hour he has noticed rectal bleeding. He says he took the dog for a walk and when he got back his underwear was saturated with blood. He has more rectal pain, moving his bowels is incredibly uncomfortable. He has experienced some right lower quadrant abdominal discomfort, burning sensation. He is eating fine but he stopped eating when the bleeding started. He took his aspirin and Plavix last night. Vitals are stable in the ED and Hb is 14. Will place him on observation and make NPO after midnight for scope tomorrow. Allergies Allergy/AdvReac Type Severity Reaction Status Date / Time mushroom Allergy Severe ANAPHALYAXSIS, Verified 09/08/21 14:18 HIVES doxycycline Allergy Intermediate "CPK Verified 09/08/21 14:18 levels get out of whack" daptomycin AdvReac Intermediate Rhabdomyoly Verified 09/08/21 14:18 sis mirtazapine AdvReac Mild ITCHY Verified 09/08/21 14:18 FEELING ALL OVER/ARMS Home Medications Medication Instructions Recorded Confirmed Type nitroglycerin 0.4 mg sublingual 0.4 mg SUBLINGUAL UD PRN 10/04/18 09/08/21 History tablet (Nitrostat) lidocaine 5 % topical ointment 1 appln TOP UD PRN #30 gm 03/28/20 09/08/21 Rx fluticasone propionate 50 1 sprays INTRANASAL DAILY PRN #1 gm 06/03/20 09/08/21 History mcg/actuation nasal spray,suspension (Flonase Allergy Relief) aspirin 81 mg tablet,delayed 81 mg PO HS #0 tab 08/27/20 09/08/21 Rx release atorvastatin 20 mg tablet 20 mg PO HS #90 tab 09/19/20 09/08/21 Rx multivitamin (Daily Multi-Vitamin) 1 tab PO HS 09/19/20 09/08/21 History hydrocortisone 2.5 % topical cream 1 applic TOPICAL BID #30 g 10/14/20 09/08/21 Rx primidone 50 mg tablet 50 mg PO DAILY PRN 30 Days #30 tab 10/16/20 09/08/21 Rx clopidogrel 75 mg tablet (Plavix) 75 mg PO HS #90 tab 11/19/20 09/08/21 Rx diltiazem HCl 180 mg 180 mg PO HS #30 cap 03/13/21 09/08/21 Rx capsule,extended release 24 hr pantoprazole 40 mg tablet,delayed 40 mg PO HS #90 tab 04/03/21 09/08/21 Rx release ketoconazole 2 % topical cream 1 applic TOPICAL BID #60 g 04/30/21 09/08/21 Rx acetaminophen 500 mg tablet 500 - 1,000 mg PO HS 06/19/21 09/08/21 History (Tylenol Extra Strength) escitalopram oxalate 10 mg tablet 10 mg PO HS 08/05/21 09/08/21 History (Lexapro) hydroxyzine pamoate 25 mg capsule 25 mg PO HS cap 08/05/21 09/08/21 History (Vistaril) lisinopril 10 mg tablet 10 mg PO HS #90 tab 08/05/21 09/08/21 Rx lorazepam 1 mg tablet (Ativan) 1 mg PO HS 08/15/21 09/08/21 History oxycodone-acetaminophen 5 mg-325 1 tab PO Q8H PRN #14 tab 08/30/21 09/08/21 Rx mg tablet (Percocet) tadalafil 2.5 mg tablet (Cialis) 2.5 mg PO HS #30 tab 09/01/21 09/08/21 Rx metformin 500 mg tablet 1,000 mg PO BID #360 tab 09/04/21 09/08/21 Rx metoprolol succinate 25 mg 25 mg PO HS #90 tab 09/05/21 09/08/21 Rx tablet,extended release 24 hr vitamin B complex 1 tab PO DAILY 09/08/21 09/08/21 History Past Med/Surg History Medical History Acute renal failure (ARF) TO FOLLOW UP WITH ANUALLY Anal irritation REASON FOR LIDOCAINE OINTMENT PRN Anxiety and depression Arthritis LUMBAR/THORACIC SPINE Atrial tachycardia 2018 2 event and had 2 stents placed CKD (chronic kidney disease) stage 2, GFR 60-89 ml/min Diverticular disease Fatty liver GERD (gastroesophageal reflux disease) H/O esophageal spasm History of anemia History of rhabdomyolysis History of stomach ulcers HTN (hypertension) Hx of cardiac murmur Hx of esophageal varices Localized swelling, mass or lump of neck LEFT SIDE "BLOCKED LYMPH NODE" Migraine occular Myocardial Infarction 2018 X 2 RUSSELL (nonalcoholic steatohepatitis) PTSD (post-traumatic stress disorder) Restless leg syndrome Sleep apnea hx of and no issues Tremor RT/LEFT HANDS Surgical History H/O knee surgery RT Hemorrhoid BANDING IN PAST History of arthroscopy of left shoulder History of cardiac cath 2 STENTS PLACED>MAY & JUNE 2018 AT [facility] JUN 2019 AT [facility] NO STENTS History of colonoscopy History of esophagogastroduodenoscopy (EGD) History of heart artery stent 2 STENTS PLACED 2017 History of liver biopsy 2019 History of neurologic surgery 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 History of tooth extraction Family History Grandfather Family history of esophageal cancer Mother Diabetes Myocardial infarction Hypertension Family history of diabetes mellitus Father Myocardial infarction Hypertension Grandfather (Maternal) Prostate cancer Family hx of colon cancer Brother Myocardial infarction Grandfather (Paternal) Myocardial infarction Grandmother (Paternal) Myocardial infarction Other Colon cancer No family history of adverse response to anesthesia Denies family history of Ovarian cancer Breast cancer Social History Smoking Status: Former smoker Tobacco Type: Cigarettes Age Started Using Tobacco: 17; Age Quit Using Tobacco: 44; packs per day: 1; Number of Years Since Quit: 4; Second Hand Exposure: No; Hx Alcohol Use: No Hx Substance Use: No Preferred Language: Welsh Communication Ability: Effective Visual Impairment: No Limitations 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: Normal 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 Required: No Beliefs That Will Affect Care: None marital status: Current Living Situation: Spouse current occupational status: other current occupation: unemployed x 2 years b/c of "medical conditions" Feels Safe at Home: Yes Safety Concerns: Feels Safe At This Time Childhood Exposure to Second-Hand Smoke: Yes Dental Care, Regularly: Yes Physical Activity Frequency: Does not Exercise Seatbelt Use: always Sunscreen Use: Yes Assistive Devices: None and Crutches Review of Systems Review of Systems: All systems reviewed & are unremarkable except as noted in Subjective Physical Exam Physical Exam: General: well developed, well nourished, no acute distress, comfortable Neck: supple, trachea midline, normal thyroid Lungs: clear to auscultation bilaterally, normal respiratory effort, no accessory muscle use, no distress Heart: regular S1 and S2, no murmur, peripheral pulses normal, capillary refill normal, no edema Abdomen: soft, NT, ND, + BS, no hepatomegaly, normal to percussion Extremities: normal in appearance, no cyanosis, no petechiae, strength is 5/5 bilaterally Neuro: awake, cooperative, moves all extremities, no focal motor deficits, CN II-XII intact, sensation in extremities intact, normal speech Skin: warm, dry, no rash, normal turgor Psych: Awake, alert oriented x 3, euthymic affect Results & Data Results & Data ([facility]) Vital Signs (Past 12 Hours) Vital Signs Temp Pulse Pulse Resp BP BP Pulse Ox 09/08/21 21:24 53 L 16 149/82 H 97 09/08/21 18:10 47 L 16 98 09/08/21 18:00 46 L 15 97 09/08/21 17:50 48 L 18 96 09/08/21 17:40 45 L 15 97 09/08/21 17:30 47 L 16 98 09/08/21 17:20 47 L 16 98 09/08/21 17:10 47 L 20 96 09/08/21 17:02 97 H 17 91 09/08/21 16:50 45 L 24 96 09/08/21 16:40 48 L 21 97 09/08/21 16:30 47 L 18 97 09/08/21 16:20 58 L 12 98 09/08/21 16:10 49 L 18 96 09/08/21 16:00 57 L 18 98 09/08/21 15:50 48 L 17 98 09/08/21 15:44 48 L 15 97 09/08/21 15:16 49 L 16 130/77 97 09/08/21 13:34 48 L 16 141/78 H 98 09/08/21 11:50 36.9 C 64 18 132/77 97 Laboratory Results Laboratory Results - last 24 hr 09/08/21 09/08/21 09/08/21 11:55 11:55 11:55 WBC 7.28 RBC 4.31 L Hgb 14.2 Hct 39.7 L MCV 92.1 MCH 32.9 MCHC 35.8 RDW Std Deviation 47.5 H RDW Coeff of Heather 14.1 Plt Count 175 MPV 9.3 PT 10.7 INR 1.1 APTT 26.5 PTT Ratio 1.0 Sodium 138 Potassium 3.7 Chloride 108 H Carbon Dioxide 20 L Anion Gap 10.0 BUN 17 Creatinine 0.91 Est Cr Clr Drug Dosing 120.2 Est GFR ( Amer) 113.5 Est GFR (Non-Af Amer) 97.9 BUN/Creatinine Ratio 18.2 Glucose 105 H POC Glucose Calcium 9.5 Total Bilirubin 1.1 H AST 16 ALT 30 Alkaline Phosphatase 87 Total Protein 7.2 Albumin 3.9 Globulin 3.3 Albumin/Globulin Ratio 1.2 COVID-19 Eval Order SARS-CoV-2 (PCR) Blood Type Antibody Screen 09/08/21 09/08/21 09/08/21 11:56 15:15 15:15 WBC RBC Hgb Hct MCV MCH MCHC RDW Std Deviation RDW Coeff of Heather Plt Count MPV PT INR APTT PTT Ratio Sodium Potassium Chloride Carbon Dioxide Anion Gap BUN Creatinine Est Cr Clr Drug Dosing Est GFR ( Amer) Est GFR (Non-Af Amer) BUN/Creatinine Ratio Glucose POC Glucose Calcium Total Bilirubin AST ALT Alkaline Phosphatase Total Protein Albumin Globulin Albumin/Globulin Ratio COVID-19 Eval Order Covid19 at [facility] SARS-CoV-2 (PCR) NEGATIVE Blood Type O Positive Antibody Screen NEGATIVE 09/08/21 19:59 WBC RBC Hgb Hct MCV MCH MCHC RDW Std Deviation RDW Coeff of Heather Plt Count MPV PT INR APTT PTT Ratio Sodium Potassium Chloride Carbon Dioxide Anion Gap BUN Creatinine Est Cr Clr Drug Dosing Est GFR ( Amer) Est GFR (Non-Af Amer) BUN/Creatinine Ratio Glucose POC Glucose 93 Calcium Total Bilirubin AST ALT Alkaline Phosphatase Total Protein Albumin Globulin Albumin/Globulin Ratio COVID-19 Eval Order SARS-CoV-2 (PCR) Blood Type Antibody Screen Medications Administered Current Inpatient Medications Acetaminophen (Acetaminophen 325 Mg Tab) 650 mg PO Q4H PRN PRN Reason: pain/fever Stop: 10/08/21 20:06 Atorvastatin Calcium (Atorvastatin 20 Mg Tab) 20 mg PO HS SARA Stop: 10/08/21 20:59 Last Admin: 09/08/21 21:26 Dose: 20 mg Documented by: Diltiazem HCl (Diltiazem Hcl 180 Mg Capcr) 180 mg PO HS SARA Stop: 10/08/21 20:59 Last Admin: 09/08/21 22:08 Dose: Not Given Documented by: Escitalopram Oxalate (Escitalopram Oxalate 10 Mg Tab) 10 mg PO HS SARA Stop: 10/08/21 20:59 Last Admin: 09/08/21 21:27 Dose: 10 mg Documented by: Fluticasone Propionate (Fluticasone Propionate Na Spr 16 Gm Btl) 1 sprays NA DAILY PRN PRN Reason: Allergy Symptoms Stop: 10/08/21 20:06 Hydrocortisone (Hydrocortisone 2.5% Cr 30 Gm Tube) 1 appln EXT BID SARA Stop: 10/08/21 20:59 Last Admin: 09/08/21 21:28 Dose: Not Given Documented by: Hydroxyzine HCl (Hydroxyzine Hcl 25 Mg Tab) 25 mg PO HS SARA Stop: 10/08/21 20:59 Ketoconazole (Ketoconazole 2% Cr 15 Gm Tube) 1 appln EXT BID SARA Stop: 09/18/21 20:59 Last Admin: 09/08/21 21:28 Dose: Not Given Documented by: Lidocaine (Lidocaine 5% Oint 30 Gm Tube) 1 appln TOP UD PRN PRN Reason: anal irritation Stop: 10/08/21 20:06 Lisinopril (Lisinopril 10 Mg Tab) 10 mg PO HS [facility] Stop: 10/08/21 20:59 Last Admin: 09/08/21 21:28 Dose: 10 mg Documented by: Lorazepam (Lorazepam 1 Mg Tab) 1 mg PO HS [facility] Stop: 10/08/21 20:59 Last Admin: 09/08/21 22:07 Dose: 1 mg Documented by: Metoprolol Succinate (Metoprolol Succ 25mg Ext Rel Tab) 25 mg PO HS [facility] Stop: 10/08/21 20:59 Last Admin: 09/08/21 22:08 Dose: Not Given Documented by: Ondansetron HCl (Ondansetron Inj 2 Mg/Ml 2 Ml Vial) 4 mg IV Q6H PRN PRN Reason: Nausea Stop: 10/08/21 20:06 Oxycodone/Acetaminophen (Oxycodone/Acetaminophen 5mg/325mg Tab) 1 tab PO Q8H PRN PRN Reason: pain Stop: 09/22/21 20:06 Pantoprazole Sodium (Pantoprazole 40 Mg Tab) 40 mg PO [facility] Stop: 10/08/21 20:59 Last Admin: 09/08/21 21:26 Dose: 40 mg Documented by: Primidone (Primidone 50 Mg Tab) 50 mg PO DAILY PRN PRN Reason: tremor Stop: 10/08/21 20:06 Code Status & VTE Plan VTE Prophylaxis Plan VTE Prophylaxis will be ordered: Yes PG Care Time/CCT Total # of Minutes Spent Total Time Spent with Patient: Total time spent is greater than 50% in coordination of care (as documented) at patient's floor/unit and/or counseling patient: Coding Level of Care Code INT OBSERVATION CARE 50M LVL 2 Diagnoses Rectal bleeding K62.5 Anal or rectal pain K62.89
[2021-09-08] MEDS: hydrOXYzine HCl 25 MG TAB PO SCH (22:34)
[2021-09-09 06:18] LABS: Hematocrit (blood only) 40.7 % (42-52); Hemoglobin 14.3 g/dL (14.0-18.0)
[2021-09-09 06:36] LABS: BUN Creatinine Ratio 15.3 (10-20); Calcium 9.4 mg/dl (8.5-10.1); Creatinine Clr Calc Pharmacy 125.7 ml/min; Est GFR (African American) 116.6 ml/min; Est GFR (Non-African American) 100.6 ml/min; Potassium 4.2 mmol/L (3.5-5.1)
--- NOTE | 2021-09-09 08:19 | Gastroenterology Progress Note ---
Date of Service September 09, 2021 Assessment & Plan (1) Rectal bleeding: Plan: Rectal bleeding: The patient underwent colonoscopy with EMR for removal of a 25 mm rectal polyp demonstrating benign pathology 08/29/[address] [facility]. He began experiencing rectal bleeding approximately 3 to 4 days ago. He has had increase in bleeding intensity with each bowel movement. Plan today is flexible sigmoidoscopy for further evaluation and intervention. Maintain n.p.o. He will require bowel prep of 2 fleets enemas approximately 2 hours and 1 hour prior to procedure this afternoon. Procedure and risks explained to patient which include but not limited to medication reaction, bleeding, perforation, aspiration, and missed lesions. Verbalizes understanding and is agreeable to proceed. Please refer to supervising physician addendum for further recommendations. Admission and Anticipated Discharge Date Admission Date: September 08, 2021 Supervising Physician Co-Signing Physician Notes I have seen and examined the patient. I agree with note above by KIMI Wolfe except as noted below. HPI Pt with rectal bleeding post colo with EMR of large rectal polyp at [place] 08/29/21 and removal of polyps 4-8 mm in size in DC. PE Abdomen pos bs, soft, no guarding nor rebound A/P rectal bleeding---Suspect post polypectomy bleeding Flex sig with therapeutic intent now. Procedure and risks explained to patient which include but not limited to medication reaction, bleeding, perforation, aspiration, and m issed lesions. Subjective The patient is a pleasant 50-year-old male who presents with past medical history to include rectal mass, obstructive sleep apnea, GERD, hiatal hernia, RUSSELL, depression, anxiety disorder who presented to the emergency department due to rectal bleeding was subsequently admitted for further evaluation. He is status post colonoscopy with EMR 08/29/2021 and GI was consulted for further evaluation. 08/29/2021: Colonoscopy notes are reviewed from Dr. Garcia at [facility]. A total of three 4 to 8 mm polyps in the descending colon were removed. There were a few ulcers in the sigmoid colon. There was 125 mm nonbleeding polyp in the rectum which was removed with endoscopic submucosal dissection. Endoscopic suturing was performed. Endoscopic submucosal dissection was performed. Recommendations were to perform a flexible sigmoidoscopy to check healing in 6 months. Pathology results from the descending polyp demonstrated fragments of tubular adenoma and fragments of hyperplastic polyps; rectal EMR demonstrated tubular adenoma; rectum biopsy demonstrated markedly crushed tissue which was inadequate for diagnosis. In addition to flex sig in 6 months, recommend colonoscopy in 3 years time. On exam/interview today, he reports that he began experiencing rectal bleeding on Wednesday and Wednesday. He states that blood and mucus were mixed in stool. He was experience bleeding with every bowel movement. He began having lower abdominal cramping and a constant burning sensation in his abdomen. He then began noting rectal bleeding with activity that actually soaked through onto his clothing. He states that the blood was varied in intensity but he was leaking. Denies any fever or chills. States he has had some sweatiness. He has had intentional 27 pound weight loss of the last several months. Reports that he had been in the emergency department about a week ago with some "shock symptoms". These notes were reviewed. He reports some burning sensation in his right lower abdomen. Denies any nausea or vomiting. Bright red blood is noted. Denies melena. Reports normal pattern of bowel movements 2-3 times daily soft formed and easy to pass. He was on aspirin and Plavix prior to hospital evaluation. The patient quit smoking 6 years ago. He was smoking 1 pack of cigarettes per day for 28 years. He also reports alcohol intake which he quit 1 year ago. He was drinking 3-4 mixed alcoholic drinks daily for many years. Denies any use of recreational drugs including marijuana. He is independently employed. 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 He is and has 1 adult son. Review of Systems Review of Systems: All systems reviewed & are unremarkable except as noted in Subjective Physical Exam Constitutional: WD/WN, vitals as above Wears corrective lenses Neck: trachea midline, no thyromegaly Respiratory: normal respiratory effort, lungs clear to auscultation Cardiovascular: RRR, no murmur, no edema Gastrointestinal (Abdomen): normal bowel sounds, soft, nontender, no hepatosplenomegaly Skin: no rashes, warm and dry Psychiatric: A+Ox3, euthymic affect Results & Data ([facility]) Vital Signs (Past 12 Hours) Vital Signs Temp Pulse Resp BP Pulse Ox 09/08/21 22:34 37 C 54 L 18 149/82 H 96 09/08/21 21:24 53 L 16 149/82 H 97 Laboratory Results Laboratory Results - last 24 hr 09/08/21 09/08/21 09/08/21 11:55 11:55 11:55 WBC 7.28 RBC 4.31 L Hgb 14.2 Hct 39.7 L MCV 92.1 MCH 32.9 MCHC 35.8 RDW Std Deviation 47.5 H RDW Coeff of Heather 14.1 Plt Count 175 MPV 9.3 PT 10.7 INR 1.1 APTT 26.5 PTT Ratio 1.0 Sodium 138 Potassium 3.7 Chloride 108 H Carbon Dioxide 20 L Anion Gap 10.0 BUN 17 Creatinine 0.91 Est Cr Clr Drug Dosing 120.2 Est GFR ( Amer) 113.5 Est GFR (Non-Af Amer) 97.9 BUN/Creatinine Ratio 18.2 Glucose 105 H POC Glucose Calcium 9.5 Total Bilirubin 1.1 H AST 16 ALT 30 Alkaline Phosphatase 87 Total Protein 7.2 Albumin 3.9 Globulin 3.3 Albumin/Globulin Ratio 1.2 COVID-19 Eval Order SARS-CoV-2 (PCR) Blood Type Antibody Screen 09/08/21 09/08/21 09/08/21 11:56 15:15 15:15 WBC RBC Hgb Hct MCV MCH MCHC RDW Std Deviation RDW Coeff of Heather Plt Count MPV PT INR APTT PTT Ratio Sodium Potassium Chloride Carbon Dioxide Anion Gap BUN Creatinine Est Cr Clr Drug Dosing Est GFR ( Amer) Est GFR (Non-Af Amer) BUN/Creatinine Ratio Glucose POC Glucose Calcium Total Bilirubin AST ALT Alkaline Phosphatase Total Protein Albumin Globulin Albumin/Globulin Ratio COVID-19 Eval Order Covid19 at [facility] SARS-CoV-2 (PCR) NEGATIVE Blood Type O Positive Antibody Screen NEGATIVE 09/08/21 09/09/21 09/09/21 19:59 05:57 05:57 WBC RBC Hgb 14.3 Hct 40.7 L MCV MCH MCHC RDW Std Deviation RDW Coeff of Heather Plt Count MPV PT INR APTT PTT Ratio Sodium 139 Potassium 4.2 Chloride 109 H Carbon Dioxide 24 Anion Gap 6.0 BUN 13 Creatinine 0.87 Est Cr Clr Drug Dosing 125.7 Est GFR ( Amer) 116.6 Est GFR (Non-Af Amer) 100.6 BUN/Creatinine Ratio 15.3 Glucose 106 H POC Glucose 93 Calcium 9.4 Total Bilirubin AST ALT Alkaline Phosphatase Total Protein Albumin Globulin Albumin/Globulin Ratio COVID-19 Eval Order SARS-CoV-2 (PCR) Blood Type Antibody Screen
[2021-09-09] MEDS: KETOCONAZOLE 2% CR 15 GM TUBE EXT SCH ×2 (09:43→21:41)
[2021-09-09] MEDS: HYDROCORTISONE 2.5% CR 30 GM TUBE EXT SCH ×2 (09:43→21:41)
[2021-09-09] MEDS: SOD PHOSPHATE/SOD BIPHOSPHATE ENEMA 132 ML BTL PR PRN ×2 (12:07→13:02)
--- NOTE | 2021-09-09 13:41 | Anesthesiology Consultation ---
Date of Service September 09, 2021 Assessment & Plan (1) Encounter for pre-operative examination: Chart Review Chart Review: Acceptable Risk for Surgery History Surgery Operation Date: 09/09/21 16:45 Proposed Procedures p Flexible Sigmoidoscopy Dr Demetrio Atkinson Height/Weight Height: 6 ft Weight: 102.4 kg Allergies Allergy/AdvReac Type Severity Reaction Status Date / Time mushroom Allergy Severe ANAPHALYAXSIS, Verified 09/08/21 14:18 HIVES doxycycline Allergy Intermediate "CPK Verified 09/08/21 14:18 levels get out of whack" daptomycin AdvReac Intermediate Rhabdomyoly Verified 09/08/21 14:18 sis mirtazapine AdvReac Mild ITCHY Verified 09/08/21 14:18 FEELING ALL OVER/ARMS Medications Home Medications Medication Instructions Recorded Confirmed Last Taken nitroglycerin 0.4 mg sublingual 0.4 mg SUBLINGUAL UD PRN 10/04/18 09/08/21 09/07/21 tablet (Nitrostat) lidocaine 5 % topical ointment 1 appln TOP UD PRN #30 gm 03/28/20 09/08/21 09/07/21 fluticasone propionate 50 1 sprays INTRANASAL DAILY PRN #1 gm 06/03/20 09/08/21 09/07/21 mcg/actuation nasal spray,suspension (Flonase Allergy Relief) aspirin 81 mg tablet,delayed 81 mg PO HS #0 tab 08/27/20 09/08/21 09/07/21 release atorvastatin 20 mg tablet 20 mg PO HS #90 tab 09/19/20 09/08/21 09/07/21 multivitamin (Daily Multi-Vitamin) 1 tab PO HS 09/19/20 09/08/21 09/07/21 hydrocortisone 2.5 % topical cream 1 applic TOPICAL BID #30 g 10/14/20 09/08/21 09/07/21 primidone 50 mg tablet 50 mg PO DAILY PRN 30 Days #30 tab 10/16/20 09/08/21 09/07/21 clopidogrel 75 mg tablet (Plavix) 75 mg PO HS #90 tab 11/19/20 09/08/21 09/07/21 diltiazem HCl 180 mg 180 mg PO HS #30 cap 03/13/21 09/08/21 09/07/21 capsule,extended release 24 hr pantoprazole 40 mg tablet,delayed 40 mg PO HS #90 tab 04/03/21 09/08/21 09/07/21 release ketoconazole 2 % topical cream 1 applic TOPICAL BID #60 g 04/30/21 09/08/21 09/07/21 acetaminophen 500 mg tablet 500 - 1,000 mg PO HS 06/19/21 09/08/21 09/07/21 (Tylenol Extra Strength) escitalopram oxalate 10 mg tablet 10 mg PO HS 08/05/21 09/08/21 09/07/21 (Lexapro) hydroxyzine pamoate 25 mg capsule 25 mg PO HS cap 08/05/21 09/08/21 09/07/21 (Vistaril) lisinopril 10 mg tablet 10 mg PO HS #90 tab 08/05/21 09/08/21 09/07/21 lorazepam 1 mg tablet (Ativan) 1 mg PO HS 08/15/21 09/08/21 09/07/21 oxycodone-acetaminophen 5 mg-325 1 tab PO Q8H PRN #14 tab 08/30/21 09/08/21 09/07/21 mg tablet (Percocet) tadalafil 2.5 mg tablet (Cialis) 2.5 mg PO HS #30 tab 09/01/21 09/08/21 09/07/21 metformin 500 mg tablet 1,000 mg PO BID #360 tab 09/04/21 09/08/21 09/08/21 metoprolol succinate 25 mg 25 mg PO HS #90 tab 09/05/21 09/08/21 09/07/21 tablet,extended release 24 hr vitamin B complex 1 tab PO DAILY 09/08/21 09/08/21 09/07/21 Active Medications Generic Name Dose Route Start Last Admin Trade Name Freq PRN Reason Stop Dose Admin Atorvastatin Calcium 20 mg 09/08/21 21:00 09/08/21 21:26 Atorvastatin 20 Mg Tab PO 10/08/21 20:59 20 mg HS SARA Administration Diltiazem HCl 180 mg 09/08/21 21:00 09/08/21 22:08 Diltiazem Hcl 180 Mg Capcr PO 10/08/21 20:59 Not Given HS SARA Escitalopram Oxalate 10 mg 09/08/21 21:00 09/08/21 21:27 Escitalopram Oxalate 10 Mg Tab PO 10/08/21 20:59 10 mg HS SRAA Administration Hydrocortisone 1 appln 09/08/21 21:00 09/09/21 09:43 Hydrocortisone 2.5% Cr 30 Gm Tube EXT 10/08/21 20:59 Not Given BID SARA Hydroxyzine HCl 25 mg 09/08/21 21:00 09/08/21 22:34 Hydroxyzine Hcl 25 Mg Tab PO 10/08/21 20:59 25 mg HS SARA Administration Ketoconazole 1 appln 09/08/21 21:00 09/09/21 09:43 Ketoconazole 2% Cr 15 Gm Tube EXT 09/18/21 20:59 Not Given BID SARA Lisinopril 10 mg 09/08/21 21:00 09/08/21 21:28 Lisinopril 10 Mg Tab PO 10/08/21 20:59 10 mg HS SARA Administration Lorazepam 1 mg 09/08/21 21:00 09/08/21 22:07 Lorazepam 1 Mg Tab PO 10/08/21 20:59 1 mg HS SARA Administration Metoprolol Succinate 25 mg 09/08/21 21:00 09/08/21 22:08 Metoprolol Succ 25mg Ext Rel Tab PO 10/08/21 20:59 Not Given HS SARA Pantoprazole Sodium 40 mg 09/08/21 21:00 09/08/21 21:26 Pantoprazole 40 Mg Tab PO 10/08/21 20:59 40 mg HS SARA Administration Sodium Biphosphate/Sodium Phosphate 132 ml 09/09/21 08:05 09/09/21 13:02 Sod Phosphate/Sod Biphosphate Enema 132 Ml Btl MA 10/09/21 08:04 132 ml DAILY PRN Administration Constipation Past Medical History Medical History Acute renal failure (ARF) TO FOLLOW UP WITH ANUALLY Anal irritation REASON FOR LIDOCAINE OINTMENT PRN Anxiety and depression Arthritis LUMBAR/THORACIC SPINE Atrial tachycardia 2018 2 event and had 2 stents placed CKD (chronic kidney disease) stage 2, GFR 60-89 ml/min Diverticular disease Fatty liver GERD (gastroesophageal reflux disease) H/O esophageal spasm History of anemia History of rhabdomyolysis History of stomach ulcers HTN (hypertension) Hx of cardiac murmur Hx of esophageal varices Localized swelling, mass or lump of neck LEFT SIDE "BLOCKED LYMPH NODE" Migraine occular Myocardial Infarction 2018 X 2 RUSSELL (nonalcoholic steatohepatitis) PTSD (post-traumatic stress disorder) Restless leg syndrome Sleep apnea hx of and no issues Tremor RT/LEFT HANDS Past Family History Family History Grandfather Family history of esophageal cancer Mother Diabetes Myocardial infarction Hypertension Family history of diabetes mellitus Father Myocardial infarction Hypertension Grandfather (Maternal) Prostate cancer Family hx of colon cancer Brother Myocardial infarction Grandfather (Paternal) Myocardial infarction Grandmother (Paternal) Myocardial infarction Other Colon cancer No family history of adverse response to anesthesia Denies family history of Ovarian cancer Breast cancer Past Surgical History Surgical History H/O knee surgery RT Hemorrhoid BANDING IN PAST History of arthroscopy of left shoulder History of cardiac cath 2 STENTS PLACED>MAY & JUNE 2018 AT [facility] JUN 2019 AT [facility] NO STENTS History of colonoscopy History of esophagogastroduodenoscopy (EGD) History of heart artery stent 2 STENTS PLACED 2017 History of liver biopsy 2019 History of neurologic surgery 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 History of tooth extraction Social History Smoking Status: Former smoker tobacco type: cigarettes Hx Alcohol Use: No Alcohol type: hard liquor alcohol intake frequency: 3 or more drinks per day Hx Substance Use: No substance use type: does not use Physical Exam Vital Signs Last Vital Signs Temp 36.7 C 09/09/21 08:00 Pulse 50 L 09/09/21 08:00 Resp 18 09/09/21 08:00 BP 117/67 09/09/21 08:00 Pulse Ox 95 09/09/21 08:00 Testing Laboratory Results 09/09/21 05:57 09/09/21 05:57 PT 10.7 Seconds (9.0-12.0) 09/08/21 11:55 INR 1.1 (0.9-1.1) 09/08/21 11:55 APTT 26.5 Seconds (21.0-31.0) 09/08/21 11:55 Blood Type O Positive 09/08/21 11:56 Antibody Screen NEGATIVE 09/08/21 11:56 Electrocardiogram Date: 08/29/21 Findings: + NSR @ (87) and + NSST changes Echocardiogram Date: 05/07/21 EF: 70% mitral valve leaflet creating LVOT obstruction - max pressure gradient 31mmHg
[2021-09-09] MEDS ORDERED: PROPOFOL IV EMULSION 10 MG/ML 20 ML VIAL IV ONE ×2 (14:28→14:29)
--- NOTE | 2021-09-09 14:47 | Post Operative Brief Note ---
Immediate Post Op Note v1 Date of Surgery September 09, 2021 Pre & Post Diagnosis Operation Date: 09/09/21 16:45 Pre-Op Diagnosis: RECTAL BLEEDING Post-Op Diagnosis: Bleeding rectal ulcer. I identified the patient and participated in the time-out.: Yes Procedure Operation Date: 09/09/21 16:45 Actual Procedures p Colonoscopy Hemostasis - Jose Atkinson Surgeon Jose Atkinson Cso see report Estimated Blood Loss 5 Findings Consistent with Post-Op Diagnosis post polypectomy ulcer in rectum with stigmata of recent bleeding epi and APC one area and APC another area, no fresh nor old blood noted except minimal post maneuvers Follow H and H, clear liquid diet. hold ASA and Plavix
--- NOTE | 2021-09-09 14:57 | GI REPORT ---
Patient Name: Paddy Calixto Procedure Date: 09/09/2021 2:19 PM Date of : 1970 Admit Type: Inpatient Age: 50 Gender: Male Attending MD: Jose Atkinson MD Procedure: Flexible Sigmoidoscopy Providers: Jose Atkinson MD Referring MD: Jasper Montenegro Indications: Hematochezia, last colonoscopy 08/29/2021 at [facility] with EMR of large rectal polyp Medicines: Monitored Anesthesia Care Complications: No immediate complications. Estimated blood loss: Minimal. Estimated Blood Loss: Estimated blood loss was minimal. Procedure: Pre-Anesthesia Assessment: - The risks and benefits of the procedure and the sedation options and risks were discussed with the patient. All questions were answered and informed consent was obtained. After obtaining informed consent, the endoscope was passed under direct vision. Throughout the procedure, the patient's blood pressure, pulse, and oxygen saturations were monitored continuously. The Colonoscope was introduced through the anus and advanced to the left transverse colon. The flexible sigmoidoscopy was accomplished without difficulty. The patient tolerated the procedure well. Procedure and risks explained to patient which include but not limited to med reaction, bleeding, perforation, aspiration and missed lesions. Judicious gas insufflation and gas removal done on the way out. The lumen always well visualized when advancing the scope. Washes and suctioning used as needed to improve visualization but prep poor overall. . Retroflexion in the rectum not done secondary to large ulcer. Findings: A large amount of semi-liquid stool was found in the entire examined colon (stopped left transverse colon), precluding visualization. Lavage of the area was performed using copious amounts, resulting in clearance with fair visualization. A single large ulcer was found in the rectum corresponding to EMR site. Some suture noted from previous endoscopic suturing.. Two stigmata of recent bleeding were present. One area was successfully injected with 2 mL of a 1:10,000 solution of epinephrine to help prevent bleeding. Estimated blood loss was minimal. Coagulation for bleeding prevention using argon plasma at 1.2 liters/minute and 30 blue was successful for both areas. Estimated blood loss was minimal. No fresh nor old blood noted during exam except with scope manipulation and therapeutic maneuvers with self limited bleeding. The exam was otherwise without abnormality. Impression: - Stool in the entire examined colon. - A single (solitary) ulcer in the rectum. Injected. Treated with argon plasma coagulation (APC). - No fresh nor old blood noted during exam except with scope manipulation and therapeutic maneuvers with self limited bleeding. - The examination was otherwise normal. - No specimens collected. Recommendation: - Return patient to [facility] for ongoing care. Jose Atkinson M.D. Jose Atkinson MD 09/09/2021 2:57:28 PM This report has been signed electronically. Note Initiated On: 09/09/2021 2:19 PM Number of Addenda: 0 I attest to the content of the Intraoperative Record and orders documented therein, exceptions below {[id number]}
--- NOTE | 2021-09-09 15:02 | Anesthesiology Progress Note ---
Date of Service September 09, 2021 Anesthesia Post Procedure Vital Signs Vital Signs: Temp Pulse Pulse Resp BP Pulse Ox 09/09/21 14:47 103 H 16 153/83 H 97 09/09/21 13:35 37.7 C H 57 L 16 150/86 H 96 09/09/21 08:00 36.7 C 50 L 18 117/67 95 09/08/21 22:34 37 C 54 L 18 149/82 H 96 09/08/21 21:24 53 L 16 149/82 H 97 09/08/21 18:10 47 L 16 98 09/08/21 18:00 46 L 15 97 09/08/21 17:50 48 L 18 96 09/08/21 17:40 45 L 15 97 09/08/21 17:30 47 L 16 98 09/08/21 17:20 47 L 16 98 09/08/21 17:10 47 L 20 96 09/08/21 17:02 97 H 17 91 09/08/21 16:50 45 L 24 96 09/08/21 16:40 48 L 21 97 09/08/21 16:30 47 L 18 97 09/08/21 16:20 58 L 12 98 09/08/21 16:10 49 L 18 96 09/08/21 16:00 57 L 18 98 09/08/21 15:50 48 L 17 98 09/08/21 15:44 48 L 15 97 09/08/21 15:16 49 L 16 130/77 97 Transfer of Care Handoff Completed per policy Notes Mental Status: alert / awake / arousable Patient Amnestic to Procedure: Yes Nausea / Vomiting: adequately controlled Pain: adequately controlled Airway Patency, RR, SpO2: stable & adequate BP & HR: stable & adequate Hydration State: stable & adequate Anesthetic Complications: no major complications apparent and Pt Satisfied with anesthetic care
--- NOTE | 2021-09-09 16:33 | Hospitalist Progress Note ---
Date of Service September 09, 2021 Assessment & Plan (1) Rectal bleeding: Plan: tubulovillous adenoma removed about 9 days ago at [place] with Dr. Stoddard past 24 hours he started to have bright red blood per rectum, slightly painful hurts to move bowels he was taking his aspirin/Plavix, last dose was evening on 09/07 Hb remains stable at 14.3, no further bleeding colonoscopy on 09/08 with ulcer, nonbleeding, treated with cautery hold Plavix and aspirin again this evening will speak with cardiology about Plavix (2) Anal or rectal pain: Plan: due to recent polypectomy and ulcer Admission and Anticipated Discharge Date Admission Date: September 09, 2021 Subjective no further bleeding colonoscopy with ulcer at site of polypectomy, not actively bleeding cauterized hold aspirin and Plavix give him clears but allow some crackers d/w Dr. Atkinson H/H in AM and can likely go home Review of Systems Review of Systems: All systems reviewed & are unremarkable except as noted in Subjective Gastrointestinal: no abdominal pain, no nausea, no vomiting, no constipation, no diarrhea/loose stools, no blood in stools and no melena Physical Exam Physical Exam: General: well developed, well nourished, no acute distress, comfortable Neck: supple, trachea midline, normal thyroid Lungs: clear to auscultation bilaterally, normal respiratory effort, no accessory muscle use, no distress Heart: regular S1 and S2, no murmur, peripheral pulses normal, capillary refill normal, no edema Abdomen: soft, NT, ND, + BS, no hepatomegaly, normal to percussion Extremities: normal in appearance, no cyanosis, no petechiae, strength is 5/5 bilaterally Neuro: awake, cooperative, moves all extremities, no focal motor deficits, CN II-XII intact, sensation in extremities intact, normal speech Skin: warm, dry, no rash, normal turgor Psych: Awake, alert oriented x 3, euthymic affect Results & Data Results & Data ([facility]) Vital Signs (Past 12 Hours) Vital Signs Temp Pulse Resp BP Pulse Ox 09/09/21 15:39 36.6 C 78 16 145/92 H 97 09/09/21 15:15 60 16 149/75 H 98 09/09/21 15:03 82 16 160/90 H 98 09/09/21 14:47 103 H 16 153/83 H 97 09/09/21 13:35 37.7 C H 57 L 16 150/86 H 96 09/09/21 08:00 36.7 C 50 L 18 117/67 95 Laboratory Results Laboratory Results - last 24 hr 09/09/21 09/09/21 05:57 05:57 Hgb 14.3 Hct 40.7 L Sodium 139 Potassium 4.2 Chloride 109 H Carbon Dioxide 24 Anion Gap 6.0 BUN 13 Creatinine 0.87 Est Cr Clr Drug Dosing 125.7 Est GFR ( Amer) 116.6 Est GFR (Non-Af Amer) 100.6 BUN/Creatinine Ratio 15.3 Glucose 106 H Calcium 9.4 Medications Administered Current Inpatient Medications Acetaminophen (Acetaminophen 325 Mg Tab) 650 mg PO Q4H PRN PRN Reason: pain/fever Stop: 10/08/21 20:06 Atorvastatin Calcium (Atorvastatin 20 Mg Tab) 20 mg PO [facility] Stop: 10/08/21 20:59 Last Admin: 09/08/21 21:26 Dose: 20 mg Documented by: Diltiazem HCl (Diltiazem Hcl 180 Mg Capcr) 180 mg PO [facility] Stop: 10/08/21 20:59 Last Admin: 09/08/21 22:08 Dose: Not Given Documented by: Escitalopram Oxalate (Escitalopram Oxalate 10 Mg Tab) 10 mg PO [facility] Stop: 10/08/21 20:59 Last Admin: 09/08/21 21:27 Dose: 10 mg Documented by: Fluticasone Propionate (Fluticasone Propionate Na Spr 16 Gm Btl) 1 sprays NA DAILY PRN PRN Reason: Allergy Symptoms Stop: 10/08/21 20:06 Hydrocortisone (Hydrocortisone 2.5% Cr 30 Gm Tube) 1 appln EXT BID [facility] Stop: 10/08/21 20:59 Last Admin: 09/09/21 09:43 Dose: Not Given Documented by: Hydroxyzine HCl (Hydroxyzine Hcl 25 Mg Tab) 25 mg PO [facility] Stop: 10/08/21 20:59 Last Admin: 09/08/21 22:34 Dose: 25 mg Documented by: Ketoconazole (Ketoconazole 2% Cr 15 Gm Tube) 1 appln EXT BID [facility] Stop: 09/18/21 20:59 Last Admin: 09/09/21 09:43 Dose: Not Given Documented by: Lidocaine (Lidocaine 5% Oint 30 Gm Tube) 1 appln TOP UD PRN PRN Reason: anal irritation Stop: 10/08/21 20:06 Lisinopril (Lisinopril 10 Mg Tab) 10 mg PO [facility] Stop: 10/08/21 20:59 Last Admin: 09/08/21 21:28 Dose: 10 mg Documented by: Lorazepam (Lorazepam 1 Mg Tab) 1 mg PO HS [facility] Stop: 10/08/21 20:59 Last Admin: 09/09/21 21:08 Dose: 1 mg Documented by: Metoprolol Succinate (Metoprolol Succ 25mg Ext Rel Tab) 25 mg PO [facility] Stop: 10/08/21 20:59 Last Admin: 09/08/21 22:08 Dose: Not Given Documented by: Ondansetron HCl (Ondansetron Inj 2 Mg/Ml 2 Ml Vial) 4 mg IV Q6H PRN PRN Reason: Nausea Stop: 10/08/21 20:06 Oxycodone/Acetaminophen (Oxycodone/Acetaminophen 5mg/325mg Tab) 1 tab PO Q8H PRN PRN Reason: pain Stop: 09/22/21 20:06 Pantoprazole Sodium (Pantoprazole 40 Mg Tab) 40 mg PO [facility] Stop: 10/08/21 20:59 Last Admin: 09/08/21 21:26 Dose: 40 mg Documented by: Primidone (Primidone 50 Mg Tab) 50 mg PO DAILY PRN PRN Reason: tremor Stop: 10/08/21 20:06 Sodium Biphosphate/Sodium Phosphate (Sod Phosphate/Sod Biphosphate Enema 132 Ml Btl) 132 ml [place] DAILY PRN PRN Reason: Constipation Stop: 10/09/21 08:04 Last Admin: 09/09/21 13:02 Dose: 132 ml Documented by: PG Care Time/CCT Total # of Minutes Spent Total Time Spent with Patient: Total time spent is greater than 50% in coordination of care (as documented) at patient's floor/unit and/or counseling patient: Coding Level of Care Code 31123 Subseq Hosp Care Lvl 2 Diagnoses Rectal bleeding K62.5 Anal or rectal pain K62.89
[2021-09-09] MEDS: LORazepam 1 MG TAB PO SCH (21:08)
[2021-09-09] MEDS: dilTIAZem HCL 180 MG CAPCR PO SCH (21:40)
[2021-09-09] MEDS: ESCITALOPRAM OXALATE 10 MG TAB PO SCH (21:40)
[2021-09-09] MEDS: lisinopril 10 MG TAB PO SCH (21:40)
[2021-09-09] MEDS: METOPROLOL SUCC 25MG EXT REL TAB PO SCH (21:40)
[2021-09-09] MEDS: PANTOprazole 40 MG TAB PO SCH (21:41)
[2021-09-09] MEDS: ATORVASTATIN 20 MG TAB PO SCH (21:41)
[2021-09-09] MEDS: hydrOXYzine HCl 25 MG TAB PO SCH (21:41)
[2021-09-10 06:40] LABS: Basophils # (auto) 0.01 K/uL (0-0.2); Basophils % (auto) 0.1 %; Eosinophils # (auto) 0.01 K/uL (0-0.5); Eosinophils % (auto) 0.1 %; Hematocrit (blood only) 43.2 % (42-52); Immature Granulocytes # (auto) 0.03 K/uL (0.00-0.02); Immature Granulocytes % (auto) 0.3 %; Lymphocytes # (auto) 1.46 K/uL (1.2-3.4); Lymphocytes % (auto) 15.9 %; Mean Corpuscular Hemoglobin 32.9 pg (25-34); Mean Corpuscular Hgb Conc 34.7 g/dL (32-36); Mean Corpuscular Volume 94.7 fL (80-100); Mean Platelet Volume 9.9 fL (7.4-10.4); Monocytes # (auto) 0.71 K/uL (0.11-0.59); Monocytes % (auto) 7.8 %; Neutrophils # (auto) 6.94 K/uL (1.4-6.5); Neutrophils % (auto) 75.8 %; Platelet Count 176 K/uL (130-400); RDW Coefficient of Variation 14.1 % (11.5-14.5); RDW Standard Deviation 47.9 fL (36.4-46.3); Red Blood Count 4.56 M/uL (4.7-6.1); White Blood Count 9.16 K/uL (4.8-10.8)
[2021-09-10 07:27] LABS: Albumin Level 3.6 gm/dl (3.4-5.0); BUN Creatinine Ratio 15.2 (10-20); Calcium 8.9 mg/dl (8.5-10.1); Creatinine Clr Calc Pharmacy 104.2 ml/min; Est GFR (African American) 95.5 ml/min; Est GFR (Non-African American) 82.4 ml/min
[2021-09-10 07:29] LABS: Albumin Globulin Ratio 1.1 (0.9-2); Bilirubin,Total 1.4 mg/dl (0.2-1); Globulin 3.4 gm/dl (2.5-4.0)
--- NOTE | 2021-09-10 08:24 | Gastroenterology Progress Note ---
Date of Service September 10, 2021 Assessment & Plan (1) Rectal bleeding: Plan: Rectal bleeding: The patient underwent colonoscopy with EMR for removal of a 25 mm rectal polyp demonstrating benign pathology 08/29/2021 at [facility]. He began experiencing rectal bleeding approximately 3 to 4 days ago. Flexible sigmoidoscopy with hemostasis was completed yesterday. The patient has had no further rectal bleeding. He has had 2 loose to liquid bowel movements. Would not recommend advance diet as tolerated. Soft foods and low residue. He will need follow-up outpatient sigmoidoscopy in 6 months which our office will arrange. Please refer to supervising physician addendum for further recommendations. Admission and Anticipated Discharge Date Admission Date: September 09, 2021 Supervising Physician Co-Signing Physician Notes Pt DCed prior to being seen on my rounds today. Subjective The patient is awake alert and oriented this morning. He is sitting and position of comfort in bed reading. He states that he had a good night last night. Denies any abdominal pain. He has had resolution of the right lower quadrant burning sensation that he had yesterday. Denies any nausea or vomiting. Tolerating clear liquids. States he had liquid to loose bowel movement last night and this morning. Denies any melena or hematochezia. He is hoping for discharge today. Review of Systems Review of Systems: All systems reviewed & are unremarkable except as noted in Subjective Physical Exam Respiratory: normal respiratory effort, lungs clear to auscultation Cardiovascular: Rate/Rhythm: regular rate and regular rhythm Gastrointestinal (Abdomen): normal bowel sounds, soft, nontender, no hepatosplenomegaly Results & Data ([facility]) Vital Signs (Past 12 Hours) Vital Signs Temp Pulse Pulse Resp BP Pulse Ox 09/10/21 07:34 36.9 C 51 L 16 109/67 97 09/09/21 22:03 36.6 C 55 L 16 133/79 97 09/09/21 21:40 62 135/80 Diagnostic Findings Laboratory Results - last 24 hr 09/10/21 09/10/21 06:13 06:13 WBC 9.16 RBC 4.56 L Hgb 15.0 Hct 43.2 MCV 94.7 MCH 32.9 MCHC 34.7 RDW Std Deviation 47.9 H RDW Coeff of Heather 14.1 Plt Count 176 MPV 9.9 Immature Gran % (Auto) 0.3 Neut % (Auto) 75.8 Lymph % (Auto) 15.9 Peach % (Auto) 7.8 Eos % (Auto) 0.1 Baso % (Auto) 0.1 Neut # (Auto) 6.94 H Lymph # (Auto) 1.46 Peach # (Auto) 0.71 H Eos # (Auto) 0.01 Baso # (Auto) 0.01 Immature Gran # (Auto) 0.03 H Sodium 140 Potassium 4.0 Chloride 108 H Carbon Dioxide 24 Anion Gap 8.0 BUN 16 Creatinine 1.05 Est Cr Clr Drug Dosing 104.2 Est GFR ( Amer) 95.5 Est GFR (Non-Af Amer) 82.4 BUN/Creatinine Ratio 15.2 Glucose 107 H Calcium 8.9 Total Bilirubin 1.4 H AST 17 ALT 33 Alkaline Phosphatase 83 Total Protein 7.0 Albumin 3.6 Globulin 3.4 Albumin/Globulin Ratio 1.1 09/09/2021: Sigmoidoscopy with hemostasis was performed by Dr. Atkinson demonstrated stool in the entire examined colon; there was a single (solitary) ulcer in the rectum which was injected and treated with argon plasma coagulation (APC). There was no fresh or old blood noted during exam except with scope m anipulation and therapeutic maneuvers with self-limited bleeding. Exam was otherwise normal. There was no specimens collected.
[2021-09-10] MEDS: HYDROCORTISONE 2.5% CR 30 GM TUBE EXT SCH (09:04)
[2021-09-10] MEDS: KETOCONAZOLE 2% CR 15 GM TUBE EXT SCH (09:04)
[2021-09-10] MEDS ORDERED: Influenza Vaccine (Fluarix) 0.5 ML SYR (Standard Dose) IM ONE (09:45)
--- NOTE | 2021-09-10 10:12 | Discharge Summary ---
Date of Service September 10, 2021 Admission HPI Per Admitting Provider 50 yo male with recent history of colonoscopy that showed some small polyps but also large vascular mass in rectum. The polyps were removed by Dr. Atkinson but the patient was sent to [facility] for evaluation of the vascular rectal mass. The colonoscopy was done on 08/20/21. Pathology showed tubular adenoma and hyperplastic polyp. 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 At [place] he saw Dr. Stoddard who performed endoscopic resection of the mass on 08/29/21. The patient says he had held his aspirin and Plavix after the procedure, just resumed them a few days ago. For the past 36 hour he has noticed rectal bleeding. He says he took the dog for a walk and when he got back his underwear was saturated with blood. He has more rectal pain, moving his bowels is incredibly uncomfortable. He has experienced some right lower quadrant abdominal discomfort, burning sensation. He is eating fine but he stopped eating when the bleeding started. He took his aspirin and Plavix last night. Vitals are stable in the ED and Hb is 14. Will place him on observation and make NPO after midnight for scope tomorrow. Principal Diagnosis Rectal bleeding due to ulcer, recent polypectomy Discharge Exam General: well developed, well nourished, no acute distress, comfortable Neck: supple, trachea midline, normal thyroid Lungs: clear to auscultation bilaterally, normal respiratory effort, no accessory muscle use, no distress Heart: regular S1 and S2, no murmur, peripheral pulses normal, capillary refill normal, no edema Abdomen: soft, NT, ND, + BS, no hepatomegaly, normal to percussion Extremities: normal in appearance, no cyanosis, no petechiae, strength is 5/5 bilaterally Neuro: awake, cooperative, moves all extremities, no focal motor deficits, CN II-XII intact, sensation in extremities intact, normal speech Skin: warm, dry, no rash, normal turgor Psych: Awake, alert oriented x 3, euthymic affect Discharge Data Allergies Allergy/AdvReac Type Severity Reaction Status Date / Time mushroom Allergy Severe ANAPHALYAXSIS, Verified 09/08/21 14:18 HIVES doxycycline Allergy Intermediate "CPK Verified 09/08/21 14:18 levels get out of whack" daptomycin AdvReac Intermediate Rhabdomyoly Verified 09/08/21 14:18 sis mirtazapine AdvReac Mild ITCHY Verified 09/08/21 14:18 FEELING ALL OVER/ARMS Consultations 09/08/21 14:34 ED Decision to Admit Stat 09/08/21 20:07 Consult Gastroenterology Routine Procedures Performed Operation Date: 09/09/21 16:45 Actual Procedures p Colonoscopy Hemostasis - [facility] Course (1) Rectal bleeding: tubulovillous adenoma removed about 9 days ago at [place] with Dr. Stoddard past 24 hours he started to have bright red blood per rectum, slightly painful hurts to move bowels he was taking his aspirin/Plavix, last dose was evening on 09/07 Hb remains stable at 15, no further bleeding colonoscopy on 09/08 with ulcer, nonbleeding, treated with cautery can resume aspirin this evening hold Plavix another week, d/w Dr. Lechuga, his director of career resources (2) Anal or rectal pain: no pain or bleeding with moving bowels today (3) S/P coronary artery stent placement: per cardiology records, needs to be on lifelong DAPT resume aspirin this evening, hold Plavix for a week then resume no chest pain while here (4) T2DM (type 2 diabetes mellitus): diabetic diet (5) Hypertension: BP controlled on home regimen Total Time Total Time Spent Total Time Spent (In Minutes): 32 Total Time Includes: Examination of the Patient, Discharge Planning, Medication Reconciliation and Communication With Other Providers Discharge Plan Discharge Items Patient Disposition: Home - Self-Care Reason For Visit: RECTAL BLEEDING Discharge Diagnosis: Rectal bleeding after polypectomy Condition on Discharge: Good Goals: monitor for bleeding hold Plavix for a week Activity: Resume your previous activity Driving/Machine Use: No limitations Weightbearing: Full weightbearing Non-emergency contact: Primary Care Provider Call non-emergency contact if: you have any medication questions Follow-up/Referrals: Moise Drake, [Primary Care Provider] - 09/17/21 9:20 am (one week) Diet: Carb Consistent or DM2 and Heart Healthy Addtl Attending Provider Instructions: Medications: - PLAVIX: hold for another week!! resume on 09/16/21, okay to resume aspirin this evening Rectal bleeding: resolved, due to ulceration at polypectomy site, treated with cautery monitor for any further bleeding hemoglobin has been stable, actually going up to 15 today Pending Studies at Discharge: No Stand-Alone Forms: My [facility], Smoking Cessation Medications and DC Order Prescriptions: Continued lidocaine 5 % ointment 1 appln TOP UD PRN (Reason: anal irritation) Qty: 30 RF: 0 primidone 50 mg tablet 50 mg PO DAILY PRN (Reason: tremor) 30 Days Qty: 30 RF: 3 clopidogrel [Plavix] 75 mg tablet 75 mg PO HS Qty: 90 RF: 3 diltiazem HCl 180 mg capsule,extended release 24hr 180 mg PO HS Qty: 30 RF: 5 pantoprazole 40 mg tablet,delayed release (DR/EC) 40 mg PO HS Qty: 90 RF: 5 tadalafil [Cialis] 2.5 mg tablet 2.5 mg PO HS Qty: 30 RF: 5 metoprolol succinate 25 mg tablet extended release 24 hr 25 mg PO HS Qty: 90 RF: 3 fluticasone propionate [Flonase Allergy Relief] 50 mcg/actuation spray,suspension 1 sprays intranasal DAILY PRN (Reason: Allergy Symptoms) Qty: 1 RF: 0 escitalopram oxalate [Lexapro] 10 mg tablet 10 mg PO HS RF: 0 hydroxyzine pamoate [Vistaril] 25 mg capsule 25 mg PO HS RF: 0 lisinopril 10 mg tablet 10 mg PO HS Qty: 90 RF: 3 ketoconazole 2 % cream 1 applic topical BID Qty: 60 RF: 0 metformin 500 mg tablet 1,000 mg PO BID Qty: 360 RF: 5 multivitamin [Daily Multi-Vitamin] Tablet 1 tab PO HS RF: 0 atorvastatin 20 mg tablet 20 mg PO HS Qty: 90 RF: 3 hydrocortisone 2.5 % cream 1 applic topical BID Qty: 30 RF: 0 nitroglycerin [Nitrostat] 0.4 mg Tablet, Sublingual 0.4 mg Sublingual UD PRN (Reason: CHEST PAINS) RF: 0 aspirin 81 mg Tablet,Delayed Release (Dr/Ec) 81 mg PO HS Qty: 0 RF: 0 vitamin B complex Tablet 1 tab PO DAILY RF: 0 acetaminophen [Tylenol Extra Strength] 500 mg Tablet 500 - 1,000 mg PO HS RF: 0 lorazepam [Ativan] 1 mg Tablet 1 mg PO HS RF: 0 oxycodone-acetaminophen [Percocet] 5-325 mg tablet 1 tab PO Q8H PRN (Reason: pain) Qty: 14 RF: 0 Discharge Orders: Discharge Order (Routine); Ordered 09/10/21 Ordered By: Jasper Montenegro Admission Data Admit Date/Time: 09/09/21 15:16 Attending Provider: Jasper Montenegro Admit Provider: Jasper Montenegro Primary Care Provider: Moise Drake Other Providers: Chicho Palomares Kenneth A. ; Jose Atkinson Coding Level of Care Code D/C DAY MANAGEMENT >30 MINS Diagnoses Rectal bleeding K62.5 Anal or rectal pain K62.89 T2DM (type 2 diabetes mellitus) E11.9 Hypertension I10 S/P coronary artery stent placement Z95.5
== END 2021-09-10 11:04 | disposition home or self-care (01) | DRG 920 ==
LOC: ED 11:46 → EDINP 11:46 → 3N 09-09 15:36

== ENCOUNTER 2022-01-13 15:26 | Observation (INO) ==
[2022-01-13 15:57] LABS: Basophils # (auto) 0.01 K/uL (0-0.2); Basophils % (auto) 0.2 %; Eosinophils # (auto) 0.05 K/uL (0-0.5); Eosinophils % (auto) 0.9 %; Hematocrit (blood only) 43.4 % (42-52); Immature Granulocytes # (auto) 0.01 K/uL (0.00-0.02); Immature Granulocytes % (auto) 0.2 %; Lymphocytes # (auto) 1.29 K/uL (1.2-3.4); Lymphocytes % (auto) 24.3 %; Mean Corpuscular Hemoglobin 34.2 pg (25-34); Mean Corpuscular Hgb Conc 34.6 g/dL (32-36); Mean Corpuscular Volume 98.9 fL (80-100); Mean Platelet Volume 9.2 fL (7.4-10.4); Monocytes # (auto) 0.66 K/uL (0.11-0.59); Monocytes % (auto) 12.4 %; Neutrophils # (auto) 3.29 K/uL (1.4-6.5); Platelet Count 167 K/uL (130-400); RDW Coefficient of Variation 13.4 % (11.5-14.5); RDW Standard Deviation 48.2 fL (36.4-46.3); Red Blood Count 4.39 M/uL (4.7-6.1); White Blood Count 5.31 K/uL (4.8-10.8)
[2022-01-13 16:16] LABS: Partial Thromboplastin Time 27.2 Seconds (21.0-31.0); Prothrombin Time 10.3 Seconds (9.0-12.0)
[2022-01-13 16:19] LABS: Troponin I 0.03 ng/ml (0-0.04)
[2022-01-13 16:28] LABS: Albumin Globulin Ratio 1.9 (0.9-2); Albumin Level 4.3 gm/dl (3.4-5.0); BUN Creatinine Ratio 14.3 (10-20); Bilirubin,Total 1.6 mg/dl (0.2-1.0); Calcium 9.3 mg/dl (8.5-10.1); Creatinine Clr Calc Pharmacy 137.4 ml/min; Est GFR (African American) 121.8 ml/min; Est GFR (Non-African American) 105.1 ml/min; Globulin 2.3 gm/dl (2.5-4.0); Potassium 3.6 mmol/L (3.5-5.1); Total Protein 6.6 gm/dl (6.0-8.3)
--- NOTE | 2022-01-13 16:42 | XRay Report ---
XR chest 1V portable CLINICAL HISTORY: Chest Pain. COMPARISON STUDY: 08/29/2021 TECHNIQUE: 1 view of the chest FINDINGS: Single frontal view of the chest demonstrates the cardiomediastinal silhouette to be within normal li mits. The lungs are clear of alveolar opacities. There is no evidence for pleural effusion. There is no evidence for vascular congestion. There is no acute osseous pathology. IMPRESSION: 1. No acute cardiopulmonary disease. ACT 112: Negative or not required by law. Electronically signed by: Shaheed Chow M.D. 01/13/2022 4:41 PM
[2022-01-13] MEDS ORDERED: ASPIRIN CHEW 324 MG PO STA (16:57)
[2022-01-13] MEDS ORDERED: NITROGLYCERIN SL 0.4 MG/TAB TAB SL STA (16:57)
[2022-01-13] MEDS ORDERED: NITROGLYCERIN 2% OINTMENT 30GM TUBE EXT ONE (16:57)
--- NOTE | 2022-01-13 17:16 | Emergency Department Note ---
History of Present Illness General Chief complaint: Chest Pain Stated complaint: CHEST PAIN, GENERAL MALAISE Time Seen by Provider: 01/13/22 16:36 History of Present Illness Maximum Pain Intensity: 3 51-year-old male presents to the ED with a chief complaint of a retrosternal chest pain that radiated into the left chest that started yesterday. He states that on Wednesday he had some reflux symptoms. He then developed stabbing chest pain yesterday. He also developed some pressure in his substernal region. He had a routine appointment already scheduled for today with his PCP. When he saw his PCP, they did an EKG and told him to come to the ED because he had EKG changes concerning for lateral ischemia. He does have a history of stents x2 in 2019. He is currently having 3/10 chest discomfort. No associated shortness of breath. No fevers or recent illness. No pain or swelling in the legs. He did not try any medication or the nitro that he has at home for his symptoms. Home Medications Medication Instructions Recorded Confirmed Type nitroglycerin 0.4 mg sublingual 0.4 mg SUBLINGUAL UD PRN 10/04/18 12/24/21 History tablet (Nitrostat) lidocaine 5 % topical ointment 1 appln TOP UD PRN #30 gm 03/28/20 12/24/21 Rx fluticasone propionate 50 1 sprays INTRANASAL DAILY PRN #1 gm 06/03/20 12/24/21 History mcg/actuation nasal spray,suspension (Flonase Allergy Relief) aspirin 81 mg tablet,delayed 81 mg PO HS #0 tab 08/27/20 12/24/21 Rx release multivitamin (Daily Multi-Vitamin) 1 tab PO HS 09/19/20 12/24/21 History hydrocortisone 2.5 % topical cream 1 applic TOPICAL BID #30 g 10/14/20 12/24/21 Rx primidone 50 mg tablet 50 mg PO DAILY PRN 30 Days #30 tab 10/16/20 12/24/21 Rx pantoprazole 40 mg tablet,delayed 40 mg PO HS #90 tab 04/03/21 12/24/21 Rx release ketoconazole 2 % topical cream 1 applic TOPICAL BID #60 g 04/30/21 12/24/21 Rx acetaminophen 500 mg tablet 500 - 1,000 mg PO HS 06/19/21 12/24/21 History (Tylenol Extra Strength) escitalopram oxalate 10 mg tablet 10 mg PO HS 08/05/21 12/24/21 History (Lexapro) hydroxyzine pamoate 25 mg capsule 25 mg PO HS cap 08/05/21 12/24/21 History (Vistaril) lisinopril 10 mg tablet 10 mg PO HS #90 tab 08/05/21 12/24/21 Rx lorazepam 1 mg tablet (Ativan) 1 mg PO HS 08/15/21 12/24/21 History vitamin B complex 1 tab PO DAILY 09/08/21 12/24/21 History diltiazem HCl 180 mg 180 mg PO HS #30 cap 11/06/21 12/24/21 Rx capsule,extended release 24 hr metoprolol succinate 25 mg 25 mg PO HS #90 tab 11/12/21 12/24/21 Rx tablet,extended release 24 hr metformin 500 mg tablet 1,000 mg PO BID tab 12/24/21 12/24/21 History tadalafil 2.5 mg tablet (Cialis) 2.5 mg PO HS tab 12/24/21 History atorvastatin 20 mg tablet 20 mg PO HS #90 tab 01/05/22 Rx Allergies Allergy/AdvReac Type Severity Reaction Status Date / Time mushroom Allergy Severe ANAPHALYAXSIS, Verified 12/24/21 16:00 HIVES doxycycline Allergy Intermediate "CPK Verified 12/24/21 16:00 levels get out of whack" daptomycin AdvReac Intermediate Rhabdomyoly Verified 12/24/21 16:00 sis mirtazapine AdvReac Mild ITCHY Verified 12/24/21 16:00 FEELING ALL OVER/ARMS Past Med/Surg History Medical History Acute lower GI bleeding Acute renal failure (ARF) TO FOLLOW UP WITH ANUALLY Anal irritation REASON FOR LIDOCAINE OINTMENT PRN Anal or rectal pain Anxiety and depression Arthritis LUMBAR/THORACIC SPINE Atrial tachycardia 2018 2 event and had 2 stents placed CKD (chronic kidney disease) stage 2, GFR 60-89 ml/min Diverticular disease Fatty liver GERD (gastroesophageal reflux disease) H/O esophageal spasm History of anemia History of rhabdomyolysis History of stomach ulcers HTN (hypertension) Hx of cardiac murmur Hx of esophageal varices Localized swelling, mass or lump of neck LEFT SIDE "BLOCKED LYMPH NODE" Migraine occular Myocardial Infarction 2018 X 2 RUSSELL (nonalcoholic steatohepatitis) PTSD (post-traumatic stress disorder) Restless leg syndrome Sleep apnea hx of and no issues Tremor RT/LEFT HANDS Surgical History H/O knee surgery RT Hemorrhoid BANDING IN PAST History of arthroscopy of left shoulder History of cardiac cath 2 STENTS PLACED>MAY & JUNE 2018 AT [facility] JUN 2019 AT [facility] NO STENTS History of colonoscopy History of esophagogastroduodenoscopy (EGD) History of heart artery stent 2 STENTS PLACED 2017 History of liver biopsy 2019 History of neurologic surgery 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 History of tooth extraction Family History Grandfather Family history of esophageal cancer Mother Diabetes Myocardial infarction Hypertension Family history of diabetes mellitus Father Myocardial infarction Hypertension Grandfather (Maternal) Prostate cancer Family hx of colon cancer Brother Myocardial infarction Grandfather (Paternal) Myocardial infarction Grandmother (Paternal) Myocardial infarction Other Colon cancer No family history of adverse response to anesthesia Denies family history of Ovarian cancer Breast cancer Social History Smoking Status: Never smoker Tobacco Type: Cigarettes Age Started Using Tobacco: 17; Age Quit Using Tobacco: 44; packs per day: 1; Number of Years Since Quit: 4; Second Hand Exposure: No; Hx Alcohol Use: No Hx Substance Use: No Preferred Language: Setswana Communication Ability: Effective Visual Impairment: No Limitations 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: Normal Director Facilities Maintenance Required: No Beliefs That Will Affect Care: None marital status: Current Living Situation: Spouse current occupational status: other current occupation: unemployed x 2 years b/c of "medical conditions" Feels Safe at Home: Yes Childhood Exposure to Second-Hand Smoke: Yes Dental Care, Regularly: Yes Physical Activity Frequency: Does not Exercise Seatbelt Use: always Sunscreen Use: Yes Assistive Devices: None Review of Systems A total of 10 systems reviewed and were otherwise negative Physical Exam Vital Signs Vital Signs - 24 hr 01/13/22 15:29 01/13/22 16:35 Temperature 36.8 C Temperature Source Temporal Artery Scan Pulse Rate 68 54 L Pulse Rate from SpO2 Sensor 55 L Respiratory Rate 20 18 Respiratory Effort / Characteristics Non-Labored Spontaneous Respiratory Depth Normal Blood Pressure 154/83 H 140/83 Blood Pressure Mean 106 102 Pulse Oximetry 96 96 Oxygen Delivery Method Room Air Room Air Sepsis Recent Fever Within 48 Hours No Sepsis New/Unexplained Change in Mental Status No Sepsis Action Taken by Nursing No Action Required CONSTITUTIONAL/VITAL SIGNS: Reviewed / noted above. GENERAL: Non-toxic in appearance. INTEGUMENTARY: Warm, dry, and [place]. HEAD: Normocephalic. EYES: without scleral icterus or trauma. ENT/OROPHARYNX: clear and moist. LYMPHADENOPATHY/NECK: Is supple without lymphadenopathy or meningismus. RESPIRATORY: Clear to auscultation bilaterally. No increased work of breathing. CARDIOVASCULAR: Regular rate and rhythm. GI/ABDOMEN: Soft and nontender. No organomegaly or pulsatile mass. EXTREMITIES: Warm and well perfused. BACK: No CVA tenderness. NEUROLOGICAL: Intact without focal deficits. PSYCHIATRIC: normal affect. MUSCULOSKELETAL: Normally developed with good muscle tone. TRIAGE NURSING DOCUMENTATION REVIEWED. Course Administered Medications Discontinued Medications Aspirin (Aspirin Chew 324 Mg) 324 mg PO NOW STA Stop: 01/13/22 16:58 Last Admin: 01/13/22 17:09 Dose: 324 mg Documented by: [id number] Nitroglycerin (Nitroglycerin Sl 0.4 Mg/Tab Tab) 0.4 mg SL NOW STA Stop: 01/13/22 16:58 Last Admin: 01/13/22 17:09 Dose: 0.4 mg Documented by: [id number] Nitroglycerin (Nitroglycerin 2% Ointment 30gm Tube) 0.5 inch EXT NOW ONE Stop: 01/13/22 16:58 Last Admin: 01/13/22 17:09 Dose: 0.5 inch Documented by: [id number] Medical Decision Making Differential Diagnosis The differential that was considered includes acute myocardial infarction, acute coronary syndrome, myocarditis, pericarditis, pericardial effusions /tamponade, esophageal perforation, thoracic aortic dissection, pulmonary embolism, pneumonia, pneumothorax, pancreatitis, shingles, acute cholecystitis, perforated abdominal viscus. Medical Records Attestation: I reviewed the patient's medical records. Home Medications Current Medication List: was personally reviewed by me Laboratory Data Attestation: I reviewed the patient's lab results. Result diagrams: 01/13/22 15:44 01/13/22 15:44 Lab Results 01/13/22 01/13/22 01/13/22 Range/Units 15:44 15:44 15:44 WBC 5.31 (4.8-10.8) K/uL RBC 4.39 L (4.7-6.1) M/uL Hgb 15.0 (14.0-18.0) g/dL Hct 43.4 (42-52) % MCV 98.9 (80-100) fL MCH 34.2 H (25-34) pg MCHC 34.6 (32-36) g/dL RDW Std Deviation 48.2 H (36.4-46.3) fL RDW Coeff of Heather 13.4 (11.5-14.5) % Plt Count 167 (130-400) K/uL MPV 9.2 (7.4-10.4) fL Immature Gran % (Auto) 0.2 % Neut % (Auto) 62.0 % Lymph % (Auto) 24.3 % Owsley % (Auto) 12.4 % Eos % (Auto) 0.9 % Baso % (Auto) 0.2 % Neut # (Auto) 3.29 (1.4-6.5) K/uL Lymph # (Auto) 1.29 (1.2-3.4) K/uL Owsley # (Auto) 0.66 H (0.11-0.59) K/uL Eos # (Auto) 0.05 (0-0.5) K/uL Baso # (Auto) 0.01 (0-0.2) K/uL Immature Gran # (Auto) 0.01 (0.00-0.02) K/uL PT 10.3 (9.0-12.0) Seconds INR 1.0 (0.9-1.1) APTT 27.2 (21.0-31.0) Seconds PTT Ratio 1.0 Sodium 138 (136-145) mmol/L Potassium 3.6 (3.5-5.1) mmol/L Chloride 105 (98-107) mmol/L Carbon Dioxide 24 (21-32) mmol/L Anion Gap 9 (3-11) BUN 11 (6-23) mg/dl Creatinine 0.77 (0.6-1.4) mg/dl Est Cr Clr Drug Dosing 137.4 ml/min Est GFR ( Amer) 121.8 ml/min Est GFR (Non-Af Amer) 105.1 ml/min BUN/Creatinine Ratio 14.3 (10-20) Glucose 96 (70-99(Fasting)) mg/dl Calcium 9.3 (8.5-10.1) mg/dl Total Bilirubin 1.6 H (0.2-1.0) mg/dl AST 26 (13-39) U/L ALT 29 (7-52) U/L Alkaline Phosphatase 73 (34-104) U/L Troponin I 0.03 (0-0.04) ng/ml Total Protein 6.6 (6.0-8.3) gm/dl Albumin 4.3 (3.4-5.0) gm/dl Globulin 2.3 L (2.5-4.0) gm/dl Albumin/Globulin Ratio 1.9 (0.9-2) Imaging Data Radiologist's Impression: Chest X-Ray 01/13/22 15:32 XR chest 1V portable CLINICAL HISTORY: Chest Pain. COMPARISON STUDY: 08/29/2021 TECHNIQUE: 1 view of the chest FINDINGS: Single frontal view of the chest demonstrates the cardiomediastinal silhouette to be within normal limits. The lungs are clear of alveolar opacities. There is no evidence for pleural effusion. There is no evidence for vascular congestion. There is no acute osseous pathology. IMPRESSION: 1. No acute cardiopulmonary disease. ACT 112: Negative or not required by law. Electronically signed by: Shaheed Chow M.D. 01/13/2022 4:41 PM ECG Data Attestation: I personally reviewed and interpreted this ECG as follows: Additional Comments: Twelve-lead EKG: Per my interpretation shows a sinus bradycardia rate 58 with T wave inversions inferior laterally. These changes are new compared to an EKG from August 2021. No PVCs. No ST elevation. Normal QTC. MDM Narrative Patient presents with some atypical sounding chest discomfort over the past couple of days including symptoms consistent with what the patient feels is reflux as well as a stabbing pain and then also a retrosternal chest discomfort. His troponin is negative. His EKG shows a sinus bradycardia rate of 58 with some T wave inversions inferior laterally that are new compared to his previous EKG. CBC and chemistry panel was unremarkable. He has not take anything for his pain. The patient was given aspirin p.o. here. He was also given a sublingual nitro and some Nitropaste. Given the patient's cardiac history and his new EKG changes suggesting lateral ischemia, the patient will be seen by the hospitalist for further inpatient evaluation and care Impression & Plan Retrosternal chest pain, Acute electrocardiogram changes Discharge Plan Visit Data Chief Complaint: Chest Pain Stated Complaint: CHEST PAIN, GENERAL MALAISE ED Provider: Oh Pelletier Discharge Problem: Retrosternal chest pain, Acute electrocardiogram changes Patient Disposition: Being Evaluated by Hospitalist Forms Stand Alone Forms: [facility] Prescriptions Prescriptions: No Action lidocaine 5 % ointment 1 appln TOP UD PRN (Reason: anal irritation) Qty: 30 RF: 0 primidone 50 mg tablet 50 mg PO DAILY PRN (Reason: tremor) 30 Days Qty: 30 RF: 3 pantoprazole 40 mg tablet,delayed release (DR/EC) 40 mg PO HS Qty: 90 RF: 5 diltiazem HCl 180 mg capsule,extended release 24hr 180 mg PO HS Qty: 30 RF: 5 metoprolol succinate 25 mg tablet extended release 24 hr 25 mg PO HS Qty: 90 RF: 3 atorvastatin 20 mg tablet 20 mg PO HS Qty: 90 RF: 3 fluticasone propionate [Flonase Allergy Relief] 50 mcg/actuation spray,suspension 1 sprays intranasal DAILY PRN (Reason: Allergy Symptoms) Qty: 1 RF: 0 escitalopram oxalate [Lexapro] 10 mg tablet 10 mg PO HS RF: 0 hydroxyzine pamoate [Vistaril] 25 mg capsule 25 mg PO HS RF: 0 lisinopril 10 mg tablet 10 mg PO HS Qty: 90 RF: 3 ketoconazole 2 % cream 1 applic topical BID Qty: 60 RF: 0 metformin 500 mg tablet 1,000 mg PO BID RF: 0 multivitamin [Daily Multi-Vitamin] Tablet 1 tab PO HS RF: 0 hydrocortisone 2.5 % cream 1 applic topical BID Qty: 30 RF: 0 tadalafil [Cialis] 2.5 mg tablet 2.5 mg PO HS RF: 0 nitroglycerin [Nitrostat] 0.4 mg Tablet, Sublingual 0.4 mg Sublingual UD PRN (Reason: CHEST PAINS) RF: 0 aspirin 81 mg Tablet,Delayed Release (Dr/Ec) 81 mg PO HS Qty: 0 RF: 0 vitamin B complex Tablet 1 tab PO DAILY RF: 0 acetaminophen [Tylenol Extra Strength] 500 mg Tablet 500 - 1,000 mg PO HS RF: 0 lorazepam [Ativan] 1 mg Tablet 1 mg PO HS RF: 0 Referrals Referrals: Chicho Palomares MD [Primary Care Provider] -
--- NOTE | 2022-01-13 17:17 | History & Physical Report ---
Date of Service January 13, 2022 Assessment & Plan (1) Chest pain: Plan: Chest pain Troponin normal on admission Seen by outpatient provider, had an EKG performed which was compared to EKG from 08/29/2021. Current EKG shows new T wave inversions in II, V4, V5, V6 this is with inferolateral ischemia. No territorial ST segment changes were appreciated. Last echo 04/2021 with preserved EF, no regional wall motion abnormalities CXR: No acute cardiopulmonary disease No leukocytosis, hemoglobin 15 Creatinine normal at baseline, at 0.77 on admission No transaminitis He has been having pain overnight, persistent/constant and is currently epigastric/low substernal 02/05. Troponin is detectable, but normal. Trended every 6 hours x3 total Cardiology consulted, discussed over the phone. We will not heparinize at this time, observe overnight and trend troponins. If worsening pain/dynamic EKG changes/uptrending troponin can heparinize at that time. Otherwise likely follow-up with stress test. Differential does include GERD/esophageal spasm which patient has a history of for which famotidine, Protonix, GI cocktail is being given (2) T2DM (type 2 diabetes mellitus): Plan: Type 2 diabetes mellitus Last A1c well controlled 5.3 12/22/2021 Home Metformin held SSI CF 45/CR 15 Glucose checks AC/at bedtime (3) HLD (hyperlipidemia): Plan: Hyperlipidemia Statin as above, atorvastatin limited 20 mg due to history of transaminitis on higher doses (4) Depression: Plan: Continue Lexapro 10 mg p.o. nightly (5) HTN (hypertension): Plan: Hypertension Continue diltiazem 180 mg p.o. nightly Continue lisinopril 10 mg p.o. nightly Continue metoprolol succinate 25 mg p.o. nightly (6) CKD (chronic kidney disease) stage 2, GFR 60-89 ml/min: Plan: History of CKD History of CKD 2, GFR 6089 On admission creatinine 0.77, estimated GFR 105, normal renal function BMP daily Plan: ED prophylaxis: SCDs, Lovenox Diet: Heart healthy, DM Disposition: Cardiac observation/rule out on telemetry CODE STATUS: DNR/DNI, discussed with patient and at bedside History of Present Illness Chief Complaint: Chest Pain Primary Care Provider: MD Paddy Carter is a 51-year-old male with a past medical history of Norman followed by GI, CAD status post RCA and CX PCI on aspirin, atorvastatin, 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 Plaavix stopped after bowel mass was removed August 2021 with residual bleeding, moved to aspirin monotherapy. Non-cancerous mass patient. Saw PCP today and had been having pain for 12+ hours (began yesterday, present overnight)performed and EKG showed new T wave inversions laterally. Was recommended for ER evaluation. Stenting 2018. 3/10 pain at time of bedside assessment. +Nitro and aspirin by ER shortly before visit. "Today sweating like crazy this morning". Saw Dr. Palomares for an outpt appointment. Was tender in the chest to palpation. Tenderness is now 3/10. Just got nitro and seems to 'be starting to ease off a little.' Pain went up to 4/10 initially now coming down and with slight headache. +Nausea, and a little shaky. No diarrhea/constipation. Some epigastric tenderness, has a history of GERD/esophageal spasm Most exercise normally is going up stairs. No problems yesterday or preceding. Has had some right eye blurry vision. Type 2 DM. BSG 75 yesterday. Had a hx of blurry vision with BSG over 500 in the past, but very well controlled in the past. Hx of ocular migraines. Has not eaten b/c knew he needed to get worked up. No nausea until arriving in the ER. Only taken metformin today, no other medications. +Edema of bother legs mildly. Had venoseal. No change in edema in last few days/weeks, resolves with compression socks, does not take diuretics. Medical History: Reviewed Medications: Reviewed Surgical History: Reviewed Allergies: Reviewed Social History: No tobacco, no EtoH, no medical marijuana. Code Status: Surrogate decision maker would be his . DNR/DNI, confirmed with patient at bedside. Allergies Allergy/AdvReac Type Severity Reaction Status Date / Time mushroom Allergy Severe ANAPHALYAXSIS, Verified 01/13/22 17:35 HIVES doxycycline Allergy Intermediate "CPK Verified 01/13/22 17:35 levels get out of whack" prazosin AdvReac Severe PASSED Verified 01/13/22 17:35 OUT, HIT FACE ON FLOOR daptomycin AdvReac Intermediate Rhabdomyoly Verified 01/13/22 17:35 sis mirtazapine AdvReac Intermediate ITCHY Verified 01/13/22 17:35 FEELING ALL OVER/ARMS Home Medications Medication Instructions Recorded Confirmed Type nitroglycerin 0.4 mg sublingual 0.4 mg SUBLINGUAL UD PRN 10/04/18 01/13/22 History tablet (Nitrostat) lidocaine 5 % topical ointment 1 appln TOP UD PRN #30 gm 03/28/20 01/13/22 Rx fluticasone propionate 50 1 sprays INTRANASAL DAILY PRN #1 gm 06/03/20 01/13/22 History mcg/actuation nasal spray,suspension (Flonase Allergy Relief) aspirin 81 mg tablet,delayed 81 mg PO HS #0 tab 08/27/20 01/13/22 Rx release multivitamin (Daily Multi-Vitamin) 1 tab PO HS 09/19/20 01/13/22 History primidone 50 mg tablet 50 mg PO DAILY PRN 30 Days #30 tab 10/16/20 01/13/22 Rx pantoprazole 40 mg tablet,delayed 40 mg PO HS #90 tab 04/03/21 01/13/22 Rx release acetaminophen 500 mg tablet 500 - 1,000 mg PO DIRECTED PRN 06/19/21 01/13/22 History (Tylenol Extra Strength) escitalopram oxalate 10 mg tablet 10 mg PO HS 08/05/21 01/13/22 History (Lexapro) hydroxyzine pamoate 25 mg capsule 25 mg PO HS cap 08/05/21 01/13/22 History (Vistaril) lisinopril 10 mg tablet 10 mg PO HS #90 tab 08/05/21 01/13/22 Rx lorazepam 1 mg tablet (Ativan) 1 mg PO HS PRN 08/15/21 01/13/22 History vitamin B complex 1 tab PO HS 09/08/21 01/13/22 History diltiazem HCl 180 mg 180 mg PO HS #30 cap 11/06/21 01/13/22 Rx capsule,extended release 24 hr metoprolol succinate 25 mg 25 mg PO HS #90 tab 11/12/21 01/13/22 Rx tablet,extended release 24 hr metformin 500 mg tablet 1,000 mg PO BID tab 12/24/21 01/13/22 History tadalafil 2.5 mg tablet (Cialis) 2.5 mg PO HS tab 12/24/21 01/13/22 History atorvastatin 20 mg tablet 20 mg PO HS #90 tab 01/05/22 01/13/22 Rx hydrocortisone 2.5 % topical cream 1 applic TOPICAL BID PRN 01/13/22 01/13/22 History ketoconazole 2 % topical cream 1 applic TOPICAL BID PRN 01/13/22 01/13/22 History Past Med/Surg History Medical History (Updated 01/13/22 @ 18:21 by Raphael Jordan MD) Acute lower GI bleeding Acute renal failure (ARF) TO FOLLOW UP WITH ANUALLY Anal irritation REASON FOR LIDOCAINE OINTMENT PRN Anal or rectal pain Anxiety and depression Arthritis LUMBAR/THORACIC SPINE Atrial tachycardia 2018 2 event and had 2 stents placed CKD (chronic kidney disease) stage 2, GFR 60-89 ml/min Diverticular disease Fatty liver GERD (gastroesophageal reflux disease) H/O esophageal spasm History of anemia History of rhabdomyolysis History of stomach ulcers HTN (hypertension) Hx of cardiac murmur Hx of esophageal varices Localized swelling, mass or lump of neck LEFT SIDE "BLOCKED LYMPH NODE" Migraine occular Myocardial Infarction 2018 X 2 NORMAN (nonalcoholic steatohepatitis) PTSD (post-traumatic stress disorder) Restless leg syndrome Tremor RT/LEFT HANDS Surgical History H/O knee surgery RT Hemorrhoid BANDING IN PAST History of arthroscopy of left shoulder History of cardiac cath 2 STENTS PLACED>MAY & JUNE 2018 AT [facility] JUN 2019 AT [facility] NO STENTS History of colonoscopy History of esophagogastroduodenoscopy (EGD) History of heart artery stent 2 STENTS PLACED 2017 History of liver biopsy 2019 History of neurologic surgery 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 History of tooth extraction Family History Grandfather Family history of esophageal cancer Mother Diabetes Myocardial infarction Hypertension Family history of diabetes mellitus Father Myocardial infarction Hypertension Grandfather (Maternal) Prostate cancer Family hx of colon cancer Brother Myocardial infarction Grandfather (Paternal) Myocardial infarction Grandmother (Paternal) Myocardial infarction Other Colon cancer No family history of adverse response to anesthesia Denies family history of Ovarian cancer Breast cancer Social History Smoking Status: Never smoker Tobacco Type: Cigarettes Age Started Using Tobacco: 17; Age Quit Using Tobacco: 44; packs per day: 1; Number of Years Since Quit: 4; Second Hand Exposure: No; Hx Alcohol Use: No Hx Substance Use: No Preferred Language: Slovenian Communication Ability: Effective Visual Impairment: No Limitations 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: Normal 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 NAD. Cooperative. HEENT: Atraumatic, normocephalic. Dual acuity and hearing grossly intact. Pulm: CTAB A&P. -wheezes, -rales, -rhonchi. Symmetrical chest rise. No increase in work of breathing. No respiratory distress. Cardiac: RRR, -mrg. Radial pulses intact and symmetrical. Abdominal: Trace low sternal/epigastric tenderness mildly worsened by palpation. No rebound. No guarding. Extremities: Warm, dry, moving all extremities equally. Station intact in hands and feet without asymmetry. Trace ankle edema bilaterally. Results & Data Results & Data ([facility]) Vital Signs (Past 12 Hours) Vital Signs Temp Pulse Resp BP Pulse Ox 01/13/22 16:35 54 L 18 140/83 96 01/13/22 15:29 36.8 C 68 20 154/83 H 96 PG Care Time/CCT Total # of Minutes Spent Total Time Spent with Patient: Total time spent is greater than 50% in coordination of care (as documented) at patient's floor/unit and/or counseling patient: Coding Level of Care Code INT OBSERVATION CARE 50M LVL 2 Diagnoses Chest pain R07.9 T2DM (type 2 diabetes mellitus) E11.9 HLD (hyperlipidemia) E78.5 Depression F32.9 HTN (hypertension) I10 CKD (chronic kidney disease) stage 2, GFR 60-89 ml/min N18.2
[2022-01-13] MEDS ORDERED: FAMOTIDINE 20MG IV PUSH 20 MG/5 ML SYR IV STA (17:39)
[2022-01-13] MEDS ORDERED: ALUMINUM/MAGNESIUM SUSP 18 ML, LIDOCAINE VISCOUS 2% SOLN 6 ML, BARCODE IDENTIFIER 1 EA PO ONE (17:39)
[2022-01-13] MEDS ORDERED: GI COCKTAIL ED USE PO ONE (18:30)
[2022-01-13] MEDS ORDERED: MoRPHine SULFATE 2 MG/ML CARP IV STA (19:37)
[2022-01-13] MEDS ORDERED: DEXTROSE 50% 50 ML SYRINGE IV PRN (19:50)
[2022-01-13] MEDS ORDERED: GLUCOSE 40% GEL 15 GM TUBE PO PRN (19:50)
[2022-01-13] MEDS ORDERED: CARBOHYDRATES FOR HYPOGLYCEMIA PO PRN (19:50)
[2022-01-13] MEDS ORDERED: PRIMIDONE 50 MG TAB PO PRN (19:50)
[2022-01-13] MEDS ORDERED: GLUCAGON FOR INJ 1 MG VIAL SQ PRN (19:50)
[2022-01-13] MEDS ORDERED: ATIVAN 1MG HOMEPACK PO PRN (19:50)
[2022-01-13] MEDS ORDERED: FLUTICASONE PROPIONATE NA SPR 16 GM BTL PRN (19:50)
[2022-01-13] MEDS ORDERED: ACETAMINOPHEN 325 MG TAB PO PRN (19:50)
[2022-01-13] MEDS ORDERED: GLUCOSE 10 TABS/TUBE PO PRN (19:50)
[2022-01-13] MEDS ORDERED: LIDOCAINE 5% OINT 30 GM TUBE TOP PRN (19:50)
[2022-01-13] MEDS ORDERED: METOPROLOL SUCC 25MG EXT REL TAB PO SCH (21:00)
[2022-01-13] MEDS ORDERED: ESCITALOPRAM OXALATE 10 MG TAB PO SCH (21:00)
[2022-01-13] MEDS ORDERED: lisinopril 10 MG TAB PO SCH (21:00)
[2022-01-13] MEDS ORDERED: ENOXAPARIN INJ 40 MG/0.4 ML SYR SQ SCH (21:00)
[2022-01-13] MEDS ORDERED: ATORVASTATIN 20 MG TAB PO SCH (21:00)
[2022-01-13] MEDS ORDERED: PANTOprazole 40 MG TAB PO SCH (21:00)
[2022-01-13] MEDS ORDERED: hydrOXYzine HCl 25 MG TAB PO SCH (21:00)
[2022-01-13] MEDS ORDERED: dilTIAZem HCL 180 MG CAPCR PO SCH (21:00)
[2022-01-13] MEDS: INSULIN ASPART PER UNIT SC SCH (21:53)
[2022-01-14 04:58] LABS: Basophils # (auto) 0.01 K/uL (0-0.2); Basophils % (auto) 0.2 %; Eosinophils # (auto) 0.03 K/uL (0-0.5); Eosinophils % (auto) 0.6 %; Hematocrit (blood only) 41.8 % (42-52); Hemoglobin 14.3 g/dL (14.0-18.0); Immature Granulocytes # (auto) 0.01 K/uL (0.00-0.02); Immature Granulocytes % (auto) 0.2 %; Lymphocytes # (auto) 1.65 K/uL (1.2-3.4); Lymphocytes % (auto) 32.2 %; Mean Corpuscular Hemoglobin 34.2 pg (25-34); Mean Corpuscular Hgb Conc 34.2 g/dL (32-36); Mean Platelet Volume 9.2 fL (7.4-10.4); Monocytes # (auto) 0.54 K/uL (0.11-0.59); Monocytes % (auto) 10.5 %; Neutrophils # (auto) 2.88 K/uL (1.4-6.5); Neutrophils % (auto) 56.3 %; Platelet Count 147 K/uL (130-400); RDW Coefficient of Variation 13.4 % (11.5-14.5); RDW Standard Deviation 49.1 fL (36.4-46.3); Red Blood Count 4.18 M/uL (4.7-6.1); White Blood Count 5.12 K/uL (4.8-10.8)
[2022-01-14 05:17] LABS: Anion Gap 7 (3-11); Blood Urea Nitrogen 9 mg/dl (6-23); Calcium 8.8 mg/dl (8.5-10.1); Carbon Dioxide 25 mmol/L (21-32); Chloride 106 mmol/L (98-107); Creatinine Clr Calc Pharmacy 152.7 ml/min; Est GFR (African American) 127.4 ml/min; Est GFR (Non-African American) 109.9 ml/min; Glucose 105 mg/dl (70-99(Fasting)); Potassium 3.8 mmol/L (3.5-5.1); Sodium 138 mmol/L (136-145)
[2022-01-14 05:32] LABS: Troponin I < 0.03 ng/ml (0-0.04)
--- NOTE | 2022-01-14 08:59 | Medical Student Progress Note ---
Date of Service January 14, 2022 Assessment & Plan (1) Chest pain: Plan: This is a 51-year-old gentleman with a history of CAD s/p stent x2, hypertension, dyslipidemia, and type 2 diabetes who presented for evaluation of a 1 day history of chest pain. Chest pain - 1 day history, seen by PCP, had an EKG performed with new T wave inversions compared to EKG from 08/29/2021. EKG on admission confirmed T wave inversions in II, V4, V5, V6, consistent with inferolateral ischemia. No territorial ST segment changes appreciated. - CXR unremarkable, troponins negative x3 - TTE shows EF 55-60%, mild mitral regurgitation, no wall motion abnormalities, consistent with last TTE 04/2021 - cardiac vs GI in setting of known history of esophageal spasm, continue home diltiazem, pantoprazole (received GI cocktail and famotidine in ER) - Cardiology consulted, opting to catheterize Type 2 diabetes mellitus, well-controlled - most recent A1c 5.3 (12/22/2021) - Hold home metformin - SSI CF 45/CR 15 - blood glucose checks ACHS Hyperlipidemia - continue home atorvastatin (20 mg d/t hx of transaminitis on higher doses) Depression - continue home escitalopram Hypertension - Continue home diltiazem, lisinopril, metoprolol succinate DVT prophylaxis: Lovenox FEN/GI: Heart healthy, DM Disposition: medsurg with tele CODE STATUS: DNR/DNI (2) Acute electrocardiogram changes: (3) T2DM (type 2 diabetes mellitus): (4) CAD (coronary artery disease): (5) Hypertension: Admission and Anticipated Discharge Date Admission Date: January 13, 2022 Supervising Attestation I personally examined the patient and verified all spicer points of history and exam, discussed case, and agree with decision making with David Linda MS4 as above, see discharge summary as well Subjective Confirmed H&P history with patient, no further clarifications. Overnight, Mr. Calixto had trouble sleeping, partially due to pain. He says that his pain faded yesterday after receiving the aspirin/nitro/GI cocktail/morphine, but this AM, he is having intermittent 4/10 pain. It is a retrosternal "sharp ache" that is not associated with SOB, positional changes, or chest pressure. He says that the pain does not radiate. He says that he no longer feels the malaise he had yesterday but is experiencing fatigue. He had some angina in the past, before he got 2 stents, but feels that this pain is different. He also used to get esophageal spasms (and had one episode on Wednesday), but says this is pain is different from that, too. He denies reflux, cough, or sour taste in his mouth. 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 Review of Systems Review of Systems: per HPI Physical Exam Constitutional: WD/WN, vitals as above Eyes: PERRL, conjunctivae normal, anicteric sclerae ENMT: external ear and nose normal, oropharynx normal Neck: trachea midline, no thyromegaly Respiratory: normal respiratory effort, lungs clear to auscultation Cardiovascular: bradycardic, distant heart sounds, no edema Chest (Breasts): Additional Comments: Tenderness to palpation over sternum (but does not reproduce his pain) Gastrointestinal (Abdomen): normal bowel sounds, soft, nontender, no hepatosplenomegaly Skin: warm, dry, well-perfused Results & Data ([facility]) Vital Signs (Past 12 Hours) Vital Signs Temp Pulse Pulse Resp BP Pulse Ox 01/14/22 07:46 36.5 C 58 L 16 124/76 95 01/14/22 06:16 88 01/14/22 02:53 36.8 C 50 L 16 108/64 95 01/13/22 23:54 51 L 01/13/22 23:35 36.8 C 60 17 158/82 H 95
[2022-01-14] MEDS ORDERED: ASPIRIN 81 MG ECTAB PO SCH (09:00)
[2022-01-14] MEDS: INSULIN ASPART PER UNIT SC SCH ×3 (10:05→17:21)
--- NOTE | 2022-01-14 10:28 | XCELERA ---
[id number]
--- NOTE | 2022-01-14 10:48 | Electrocardiogram Report ---
Test Reason : Blood Pressure : / mmHG Vent. Rate : 049 BPM Atrial Rate : 049 BPM P-R Int : 194 ms QRS Dur : 090 ms QT Int : 518 ms P-R-T Axes : 007 -18 155 degrees QTc Int : 467 ms Sinus bradycardia Voltage criteria for left ventricular hypertrophy Cannot rule out Septal infarct , age undetermined T wave abnormality, consider lateral ischemia Abnormal ECG When compared with ECG of 13-JAN-2022 15:38, (unconfirmed) Minimal criteria for Septal infarct are now Present Confirmed by Joseph Reina ([id number]) on 01/14/2022 10:48:20 AM Referred By: REFERRED SELF Confirmed By:Joseph Reina
--- NOTE | 2022-01-14 10:49 | Electrocardiogram Report ---
Test Reason : Blood Pressure : / mmHG Vent. Rate : 058 BPM Atrial Rate : 058 BPM P-R Int : 180 ms QRS Dur : 084 ms QT Int : 492 ms P-R-T Axes : 016 -11 191 degrees QTc Int : 482 ms Poor data quality, interpretation may be adversely affected Sinus bradycardia Moderate voltage criteria for LVH, may be normal variant T wave abnormality, consider inferolateral ischemia Prolonged QT Abnormal ECG When compared with ECG of 29-AUG-2021 21:59, Vent. rate has decreased BY 29 BPM T wave inversion now evident in Inferior leads T wave inversion now evident in Lateral leads QT has shortened Confirmed by Joseph Reina ([id number]) on 01/14/2022 10:49:26 AM Referred By: Confirmed By:Joseph Reina
--- NOTE | 2022-01-14 10:50 | Cardiology Consultation ---
Date of Consultation January 14, 2022 Assessment & Plan (1) Chest pain: (2) Acute electrocardiogram changes: (3) CAD (coronary artery disease): (4) HTN (hypertension): (5) HLD (hyperlipidemia): 1. Chest discomfort: Although he describes a lot of his chest discomfort as being due to reflux I am not sure he can distinguish. It is possible his current chest discomfort is gastrointestinal, however the electrocardiographic changes are worrisome and perhaps he had a coronary event long enough before presentation that the enzymes are negative, perhaps even several months ago. With negative enzymes but ongoing chest discomfort it is worrisome although this may be GI. 2. Electrocardiographic changes: His electrocardiogram is quite different than prior ones, it has remained stable with inferolateral T wave inversions since presentation here. Since his cardiac enzymes are negative and we do not have an interim electrocardiogram between August 2021 and now it is possible that these occurred sometime in the past. They are worrisome in the setting of coronary artery disease suggesting progression. 3. Coronary disease: He has known coronary disease with interventions in the past. In 2018 his vessels were patent, however with these electrocardiographic changes and his current chest discomfort I think we need to evaluate for progression with a cardiac catheterization. I do not think we should do a stress test given this presentation and the possibility this represents unstable angina or recent myocardial infarction. 4. Hypertension: His blood pressure has been elevated here, predominantly on arrival, his most recent measurements are well controlled however. I have not adjusted his medications. 5. Hyperlipidemia: He has a history of hyperlipidemia and is on low-dose atorvastatin. I do not know if this can be increased, it may be reasonable to do so if possible. In the past he had elevated transaminases but it may be reasonable to make an attempt again if he has progression, if he does not have progression at catheterization then the current approach is probably adequate. Injectable agents are also a consideration. I discussed catheterization with him and he is agreeable. Although he did eat breakfast about 3 hours ago we do not want to delay his evaluation and we will proceed to catheterization. History of Present Illness Reason for Consultation: Chest pain, ECG changes Attending Physician: Ej Baldwin, History of Present Illness This is a 51-year-old male who has a history of hypertension, dyslipidemia, diabetes mellitus, peripheral arterial disease and coronary artery disease including prior intervention. His last catheterization was July 14, 2019 w here his stents were still patent and he had no obstructive disease in other vessels. An echocardiogram May 07, 2021 showed normal left ventricular size with ejection fraction of greater than 70% and no wall motion abnormalities. He did have mildly elevated outflow tract velocity. You presented to the emergency room on January 13, 2022 with substernal chest discomfort with radiation to his left chest. This started on January 12, 2022. He had an appointment with his PCP on January 13, 2022 an electrocardiogram done there was concerning for lateral ischemia he was sent to the emergency r oom. In the emergency room he continued to have substernal chest discomfort. He continued to have epigastric and low substernal chest discomfort. Evaluation here includes an echocardiogram on January 14, 2022 where he had normal left ventricular systolic function with mild concentric left ventricular hypertrophy and normal wall motion. He does have mild to moderate mitral regurgitation. I reviewed his electrocardiogram from January 13, 2022 and this shows sinus bradycardia 58 bpm with left ventricular hypertrophy and marked T wave inversion V4 through V6. He also has mild T wave inversion in the inferior leads. These findings are new compared to August 29, 2021. An electrocardiogram done several hours later on January 13, 2022 was similar. Troponin measurements January 13 and January 14 are unremarkable and less than 0.03. A chest x-ray on January 13, 2022 showed no acute cardiopulmonary disease. At the time of my evaluation he continues to have intermittent chest discomfort. He feels that his discomfort earlier over the weekend was reflux, last day or 2 he thinks it may be cardiac but I am not sure he can differentiate. He does not have shortness of breath, lightheadedness, dizziness or palpitations. It does not sound as though the symptoms are exertional. Allergies Allergy/AdvReac Type Severity Reaction Status Date / Time mushroom Allergy Severe ANAPHALYAXSIS, Verified 01/13/22 17:35 HIVES doxycycline Allergy Intermediate "CPK Verified 01/13/22 17:35 levels get out of whack" prazosin AdvReac Severe PASSED Verified 01/13/22 17:35 OUT, HIT FACE ON FLOOR daptomycin AdvReac Intermediate Rhabdomyoly Verified 01/13/22 17:35 sis mirtazapine AdvReac Intermediate ITCHY Verified 01/13/22 17:35 FEELING ALL OVER/ARMS Home Medications Medication Instructions Recorded Confirmed Type nitroglycerin 0.4 mg sublingual 0.4 mg SUBLINGUAL UD PRN 10/04/18 01/13/22 History tablet (Nitrostat) lidocaine 5 % topical ointment 1 appln TOP UD PRN #30 gm 03/28/20 01/13/22 Rx fluticasone propionate 50 1 sprays INTRANASAL DAILY PRN #1 gm 06/03/20 01/13/22 History mcg/actuation nasal spray,suspension (Flonase Allergy Relief) aspirin 81 mg tablet,delayed 81 mg PO HS #0 tab 08/27/20 01/13/22 Rx release multivitamin (Daily Multi-Vitamin) 1 tab PO HS 09/19/20 01/13/22 History primidone 50 mg tablet 50 mg PO DAILY PRN 30 Days #30 tab 10/16/20 01/13/22 Rx pantoprazole 40 mg tablet,delayed 40 mg PO HS #90 tab 04/03/21 01/13/22 Rx release acetaminophen 500 mg tablet 500 - 1,000 mg PO DIRECTED PRN 06/19/21 01/13/22 History (Tylenol Extra Strength) escitalopram oxalate 10 mg tablet 10 mg PO HS 08/05/21 01/13/22 History (Lexapro) hydroxyzine pamoate 25 mg capsule 25 mg PO HS cap 08/05/21 01/13/22 History (Vistaril) lisinopril 10 mg tablet 10 mg PO HS #90 tab 08/05/21 01/13/22 Rx lorazepam 1 mg tablet (Ativan) 1 mg PO HS PRN 08/15/21 01/13/22 History vitamin B complex 1 tab PO HS 09/08/21 01/13/22 History diltiazem HCl 180 mg 180 mg PO HS #30 cap 11/06/21 01/13/22 Rx capsule,extended release 24 hr metoprolol succinate 25 mg 25 mg PO HS #90 tab 11/12/21 01/13/22 Rx tablet,extended release 24 hr metformin 500 mg tablet 1,000 mg PO BID tab 12/24/21 01/13/22 History tadalafil 2.5 mg tablet (Cialis) 2.5 mg PO HS tab 12/24/21 01/13/22 History atorvastatin 20 mg tablet 20 mg PO HS #90 tab 01/05/22 01/13/22 Rx hydrocortisone 2.5 % topical cream 1 applic TOPICAL BID PRN 02/15/22 02/15/22 History ketoconazole 2 % topical cream 1 applic TOPICAL BID PRN 01/13/22 01/13/22 History Patient History Medical History Acute lower GI bleeding Acute renal failure (ARF) TO FOLLOW UP WITH ANUALLY Anal irritation REASON FOR LIDOCAINE OINTMENT PRN Anal or rectal pain Anxiety and depression Arthritis LUMBAR/THORACIC SPINE Atrial tachycardia 2017 2 event and had 2 stents placed CKD (chronic kidney disease) stage 2, GFR 60-89 ml/min Diverticular disease Fatty liver GERD (gastroesophageal reflux disease) H/O esophageal spasm History of anemia History of rhabdomyolysis History of stomach ulcers HTN (hypertension) Hx of cardiac murmur Hx of esophageal varices Localized swelling, mass or lump of neck LEFT SIDE "BLOCKED LYMPH NODE" Migraine occular Myocardial Infarction 2018 X 2 RUSSELL (nonalcoholic steatohepatitis) PTSD (post-traumatic stress disorder) Restless leg syndrome Tremor RT/LEFT HANDS Surgical History H/O knee surgery RT Hemorrhoid BANDING IN PAST History of arthroscopy of left shoulder History of cardiac cath 2 STENTS PLACED>MAY & JUNE 2018 AT [facility] JUN 2019 AT [facility] NO STENTS History of colonoscopy History of esophagogastroduodenoscopy (EGD) History of heart artery stent 2 STENTS PLACED 2017 History of liver biopsy 2019 History of neurologic surgery 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 History of tooth extraction Family History Grandfather Family history of esophageal cancer Mother Diabetes Myocardial infarction Hypertension Family history of diabetes mellitus Father Myocardial infarction Hypertension Grandfather (Maternal) Prostate cancer Family hx of colon cancer Brother Myocardial infarction Grandfather (Paternal) Myocardial infarction Grandmother (Paternal) Myocardial infarction Other Colon cancer No family history of adverse response to anesthesia Denies family history of Ovarian cancer Breast cancer Social History Smoking Status: Former smoker Tobacco Type: Cigarettes Age Started Using Tobacco: 17; Age Quit Using Tobacco: 44; packs per day: 1; Number of Years Since Quit: 4; Second Hand Exposure: No; Hx Alcohol Use: No Hx Substance Use: No Preferred Language: Monegasque Communication Ability: Effective Visual Impairment: No Limitations 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: Normal Mine Deputy Required: No Beliefs That Will Affect Care: None marital status: Current Living Situation: Spouse current occupational status: other current occupation: unemployed x 2 years b/c of "medical conditions" Feels Safe at Home: Yes Safety Concerns: Feels Safe At This Time Childhood Exposure to Second-Hand Smoke: Yes Dental Care, Regularly: Yes Physical Activity Frequency: Does not Exercise Seatbelt Use: always Sunscreen Use: Yes Assistive Devices: None Review of Systems Review of Systems: All systems reviewed & are unremarkable except as noted in HPI & below Physical Exam Physical Exam: Constitutional: Alert, cooperative and in no distress. HEENT: Unremarkable Neck: No jugular venous distention, carotid pulses are normal and equal bilaterally without bruits. Pulmonary: Clear to auscultation bilaterally. Cardiac: Regular rhythm with a soft holosystolic murmur at the apex, no gallop or rub. Abdomen: Soft, nontender with normal bowel sounds. Extremities: No edema. Distal pulses intact. Neurologic: No focal findings. Gait is steady. Skin: No rash, ecchymoses or petechiae. Results & Data ([facility]) Vital Signs (Past 12 Hours) Vital Signs Temp Pulse Pulse Resp BP Pulse Ox 01/14/22 07:46 36.5 C 58 L 16 124/76 95 01/14/22 06:16 88 01/14/22 02:53 36.8 C 50 L 16 108/64 95 01/13/22 23:54 51 L 01/13/22 23:35 36.8 C 60 17 158/82 H 95 Laboratory Results Cardiac Enzymes 01/13/22 01/13/22 01/14/22 Range/Units 15:44 22:01 04:34 AST 26 (13-39) U/L Troponin I 0.03 < 0.03 Cancelled (0-0.04) ng/ml 01/14/22 Range/Units 04:34 AST (13-39) U/L Troponin I < 0.03 (0-0.04) ng/ml Coagulation 01/13/22 Range/Units 15:44 PT 10.3 (9.0-12.0) Seconds APTT 27.2 (21.0-31.0) Seconds CBC 01/13/22 01/14/22 Range/Units 15:44 04:34 WBC 5.31 5.12 (4.8-10.8) K/uL RBC 4.39 L 4.18 L (4.7-6.1) M/uL Hgb 15.0 14.3 (14.0-18.0) g/dL Hct 43.4 41.8 L (42-52) % Plt Count 167 147 (130-400) K/uL Neut # (Auto) 3.29 2.88 (1.4-6.5) K/uL Lymph # (Auto) 1.29 1.65 (1.2-3.4) K/uL Mcpherson # (Auto) 0.66 H 0.54 (0.11-0.59) K/uL Eos # (Auto) 0.05 0.03 (0-0.5) K/uL Baso # (Auto) 0.01 0.01 (0-0.2) K/uL Comprehensive Metabolic Panel 01/13/22 01/14/22 Range/Units 15:44 04:34 Sodium 138 138 (136-145) mmol/L Potassium 3.6 3.8 (3.5-5.1) mmol/L Chloride 105 106 (98-107) mmol/L Carbon Dioxide 24 25 (21-32) mmol/L BUN 11 9 (6-23) mg/dl Creatinine 0.77 0.69 (0.6-1.4) mg/dl Glucose 96 105 H (70-99(Fasting)) mg/dl Calcium 9.3 8.8 (8.5-10.1) mg/dl AST 26 (13-39) U/L ALT 29 (7-52) U/L Alkaline Phosphatase 73 (34-104) U/L Total Protein 6.6 (6.0-8.3) gm/dl Albumin 4.3 (3.4-5.0) gm/dl Intake and Output 01/13/22 01/14/22 01/14/22 22:59 06:59 14:59 Intake Total 550 / 550 Balance 550 / 550 Intake: Oral 550 / 550 Other: Weight 97 kg 96.706 kg Weight Measurement Method Built in Bedscale Standing Scale Diagnostic Findings Telemetry: Sinus bradycardia, average about 50 bpm, in the 40s at night. PG Care Time/CCT Total # of Minutes Spent Total Time Spent with Patient: Total time spent is greater than 50% in coordination of care (as documented) at patient's floor/unit and/or counseling patient: Coding Level of Care Code 14720 Inpt Consult Level 5 Diagnoses Chest pain I20.0 Chest pain type: chest pain due to myocardial ischemia Ischemic chest pain type: unstable angina pectoris Acute electrocardiogram changes R94.31 CAD (coronary artery disease) I25.110 Coronary Disease-Associated Artery/Lesion type: [place] artery [place] vs. transplanted heart: [place] heart Associated angina: with unstable angina HTN (hypertension) I10 Hypertension type: primary hypertension HLD (hyperlipidemia) E78.5 Hyperlipidemia type: unspecified (1) Chest pain Chest pain type: chest pain due to myocardial ischemia Ischemic chest pain type: unstable angina pectoris Qualified Code(s): I20.0 - Unstable angina (2) CAD (coronary artery disease) Coronary Disease-Associated Artery/Lesion type: [place] artery [place] vs. transplanted heart: [place] heart Associated angina: with unstable angina Qualified Code(s): I25.110 - Atherosclerotic heart disease of [place] coronary artery with unstable angina pectoris (3) HTN (hypertension) Hypertension type: primary hypertension Qualified Code(s): I10 - Essential (primary) hypertension (4) HLD (hyperlipidemia) Hyperlipidemia type: unspecified Qualified Code(s): E78.5 - Hyperlipidemia, unspecified
[2022-01-14] MEDS ORDERED: fentaNYL citrate 100 MCG/2 ML VIAL ONE ×2 (11:45→12:23)
[2022-01-14] MEDS ORDERED: MIDAZOLAM HCL 1 MG/ML 2ML VIAL ONE ×2 (12:22→14:01)
[2022-01-14] MEDS ORDERED: NITROGLYCERIN/D5W 100MCG/ML 20ML SYR ONE (12:23)
[2022-01-14] MEDS ORDERED: niCARdipine HCL INJ 2.5 MG/ML 10 ML AMP ONE (12:23)
[2022-01-14] MEDS ORDERED: HEPARIN (PORCINE) 1000 UNIT/ML 10 ML (CATH LAB USE ONLY) ONE (12:23)
[2022-01-14] MEDS ORDERED: LIDOCAINE 1% LOCAL 20 ML VIAL ONE (12:42)
--- NOTE | 2022-01-14 14:22 | Electrocardiogram Report ---
Test Reason : Blood Pressure : / mmHG Vent. Rate : 046 BPM Atrial Rate : 046 BPM P-R Int : 174 ms QRS Dur : 096 ms QT Int : 554 ms P-R-T Axes : 019 -17 117 degrees QTc Int : 484 ms Sinus bradycardia Moderate voltage criteria for LVH, may be normal variant T wave abnormality, consider lateral ischemia Prolonged QT Abnormal ECG When compared with ECG of 13-JAN-2022 19:35, Inverted T waves have replaced nonspecific T wave abnormality in Anterior leads Confirmed by Joseph Reina ([id number]) on 01/14/2022 2:22:34 PM Referred By: REFERRED SELF Confirmed By:Joseph Reina
--- NOTE | 2022-01-14 14:39 | Pre Anesthesia Assessment ---
Date of Service January 14, 2022 Pre Sedation Assessment Vital Signs Temp Pulse Pulse Pulse Resp BP BP 01/14/22 14:30 54 L 16 125/79 01/14/22 14:15 53 L 16 144/80 H 01/14/22 11:41 50 L 16 147/88 H 01/14/22 11:15 97.3 F L 44 L 16 107/64 01/14/22 07:46 97.7 F 58 L 16 124/76 01/14/22 06:16 88 01/14/22 02:53 98.2 F 50 L 16 108/64 01/13/22 23:54 51 L 01/13/22 23:35 98.2 F 60 17 158/82 H 01/13/22 20:57 49 L 16 135/89 01/13/22 20:56 51 L 15 135/89 01/13/22 18:00 47 L 12 143/87 H 01/13/22 17:30 65 14 146/82 H 01/13/22 17:07 60 21 141/89 H 01/13/22 16:35 54 L 18 140/83 01/13/22 15:29 98.2 F 68 20 154/83 H Pulse Ox 01/14/22 14:30 99 01/14/22 14:15 98 01/14/22 11:41 98 01/14/22 11:15 96 01/14/22 07:46 95 01/14/22 06:16 01/14/22 02:53 95 01/13/22 23:54 01/13/22 23:35 95 01/13/22 20:57 95 01/13/22 20:56 96 01/13/22 18:00 97 01/13/22 17:30 01/13/22 17:07 98 01/13/22 16:35 96 01/13/22 15:29 96 Cardiovascular RRR, no murmur, no edema Respiratory normal respiratory effort, lungs clear to auscultation Pre-Sedation Airway Assessment Smoking Status: Former smoker Hx Sleep Apnea: Yes Hx Difficult Intubation: No Short, Thick Neck: No Thyromental Distance: > or= 3.5 Finger Breadths Oral Cavity: + WNL Mallampati Class: III ASA: ASA3 NPO Status Date of Last Intake of Fluids: 01/14/22 Time of Last Intake of Fluids: 08:00 Date of Last Intake of Solid Food: 01/14/22 Time of Last Intake of Solid Foods: 08:00 Procedure Planning Contraindications for Sedation: none Current Medications Reviewed: Yes Notes The planned sedation has been discussed with the patient. Informed Consent was obtained. I have identified the patient, determined the appropriateness of sedation and have assessed the patient immediately prior to the procedure. All medicine(s) and interventions are by my order.
--- NOTE | 2022-01-14 14:40 | Post Anesthesia Assessment ---
Date of Service January 14, 2022 Post Sedation Assessment Vital Signs Temp Pulse Pulse Pulse Resp BP BP 01/14/22 14:30 54 L 16 125/79 01/14/22 14:15 53 L 16 144/80 H 01/14/22 11:41 50 L 16 147/88 H 01/14/22 11:15 97.3 F L 44 L 16 107/64 01/14/22 07:46 97.7 F 58 L 16 124/76 01/14/22 06:16 88 01/14/22 02:53 98.2 F 50 L 16 108/64 01/13/22 23:54 51 L 01/13/22 23:35 98.2 F 60 17 158/82 H 01/13/22 20:57 49 L 16 135/89 01/13/22 20:56 51 L 15 135/89 01/13/22 18:00 47 L 12 143/87 H 01/13/22 17:30 65 14 146/82 H 01/13/22 17:07 60 21 141/89 H 01/13/22 16:35 54 L 18 140/83 01/13/22 15:29 98.2 F 68 20 154/83 H Pulse Ox 01/14/22 14:30 99 01/14/22 14:15 98 01/14/22 11:41 98 01/14/22 11:15 96 01/14/22 07:46 95 01/14/22 06:16 01/14/22 02:53 95 01/13/22 23:54 01/13/22 23:35 95 01/13/22 20:57 95 01/13/22 20:56 96 01/13/22 18:00 97 01/13/22 17:30 01/13/22 17:07 98 01/13/22 16:35 96 01/13/22 15:29 96 Recovery Score Activity: Moves 4 extremities Respiration: Deep Breath/Cough Circulation: +/-20% PreAnes Value Consciousness: Fully Awake Oxygen Saturation: > 92% On Room Air Post Anesthesia Score: 10 Discharge Sedation Level of Care: Fast Track Phase II Post Sedation Plan On clinical assessment, the patient appears to have tolerated the sedation without complications. Patient is recovering as anticipated. Patient will continue to be monitored by nursing and may be discharged when sedation discharge criteria are met per below protocol. Upon Completions of procedure up to 15 minutes continue every 5 minute vital signs and the P.A.R. score; then discharge to a Phase I or Fast Track to Phase II per the following guidelines: * Discharge Patient to appropriate Phase II area if PAR is 8 or greater or return to pre- procedure baseline. The post - procedure orders will be as directed. * If PAR score is less than 8 or not return to pre-procedure baseline then patient will follow Phase I monitoring till PAR is reached for Phase II. The Phase I may be done in procedure room or may call to secure a Phase I area. * If naloxone or flumazenil are used for reversal, hold in Phase I for continued monitoring from when last reversal dose was given for a minimum of 60 minutes or longer pending the nurse and/or physician discretion of patient condition before discharge to Phase II. Please call the Sedation Physician to re-evaluate and complete post-note for discharge to Phase II area. Do NOT discharge from procedure sedation or Phase 1 until post- sedation evaluation note is complete by procedure /sedation MD Sedation Discharge Instructions to be given to the patient at discharge to home.
--- NOTE | 2022-01-14 14:49 | Cardiac Catheterization ---
ACC Data: Adjunct Mathematics Instructor Cardiac Status Clinical evaluation leading to the procedure CAD Presenation: Unstable angina Anginal Classification: CCS IV Cardiogenic Shock within 24 Hours: No Cardiac Arrest within 24 Hours: No Imaging Studies Past 6 Months: Yes Stress Studies Past 6 Months: No Diagnostic Physicians Name: Gorge Bucio MD Status: Elective Closure Device Percutaneous Entry Location: Radial Recommendations: Medical Therapy and/or Counseling Intraprocedure Events Significant Disection: No Perforation: No Cardiac Cath Procedure Full Procedure Date January 14, 2022 Pre-Procedure Diagnosis Pre-Procedure Diagnosis: Acute Coronary Syndrome AUC Score AUC Score: 7 Post-Procedure Diagnosis Post-Procedure Diagnosis: Mild CAD and Normal Intracardiac Pressures Procedure(s) Performed Procedure(s) Performed: Coronary Angiography and Left Heart Cath Slate Mixer Gorge Bucio MD Gui Developer(s) Showers Estimated Blood Loss Estimated Blood Loss: 10 Medication(s) Medication(s): Fentanyl, Heparin, Lidocaine 1%, Nicardipine, Nitroglycerin and Versed Summary of Findings Indication: Suspected ACS, history of CAD Access: 6 Fr right radial artery Catheters: [place] Findings: LM -normal caliber without significant disease LAD -medium caliber vessel extends to the apex. 30 to 40% mid segment stenosis between large caliber D2 and medium D3. No other significant disease. Circumflex -large caliber vessel, mid circumflex stent is patent. OM1, distal vessel without significant disease RCA -dominant, large caliber, 20 to 30% lateproximal stenosis. Mid RCA stent widely patent. Large PDA, RPL without significant disease. LVEDP -5 Arterial Closure: TR band Summary: 1. Mild nonobstructive coronary artery disease -Widely patent circumflex stent Widely patent mid RCA stent 30 to 40% mid LAD 20 to 30% proximal RCA 2. Normal intracardiac filling pressure Recommendations: No new high risk CAD to explain patient's recent chest pain. Feel chest pain likely noncardiac. T wave inversions resolved during cardiac catheterization. Evaluate for noncardiac causes of patient's chest pain. From a cardiac standpoint okay with discharge later today after TR band off Hemodynamics Rest Ao:: -- Final Ao: -- LV: -- Recommendations Recommendations: Medical Therapy and/or Counseling Specimens Specimens: None Radiation Exposure (mGy) 100/57/79 Contrast (mls) 30 Drains Drains: None Anesthesia Moderate Procedural Complication(s) None Disposition Adjunct Mathematics Instructor Holding/Recovery I attest to the content of the Intraoperative Record and any orders documented therein. Any exceptions are noted below. [facility] Card Cath Procedure Codes Cardiac Catheterization Procedure 1: Cardiovascular Cath Procedures: 01019 Coronaries and LHC (+/-LV) Moderate Sedation Procedure 1: Sedation/Anesthesia: 35973 Mod Sedation by the same physician;Init15 Min Child Age 5 & Up PG Care Time/CCT Total # of Minutes Spent Total Time Spent with Patient: Total time spent is greater than 50% in coordination of care (as documented) at patient's floor/unit and/or counseling patient:
[2022-01-14] MEDS ORDERED: SODIUM CHLORIDE 0.9% 500 ML IV SCH (15:00)
--- NOTE | 2022-01-14 17:40 | Discharge Summary ---
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 Plaavix stopped after bowel mass was removed August 2021 with residual bleeding, moved to aspirin monotherapy. Non-cancerous mass patient. Saw PCP today and had been having pain for 12+ hours (began yesterday, present overnight)performed and EKG showed new T wave inversions laterally. Was recommended for ER evaluation. Stenting 2018. 3/10 pain at time of bedside assessment. +Nitro and aspirin by ER shortly before visit. "Today sweating like crazy this morning". Saw Dr. Palomares for an outpt appointment. Was tender in the chest to palpation. Tenderness is now 3/10. Just got nitro and seems to 'be starting to ease off a little.' Pain went up to 4/10 initially now coming down and with slight headache. +Nausea, and a little shaky. No diarrhea/constipation. Some epigastric tenderness, has a history of GERD/esophageal spasm Most exercise normally is going up stairs. No problems yesterday or preceding. Has had some right eye blurry vision. Type 2 DM. BSG 75 yesterday. Had a hx of blurry vision with BSG over 500 in the past, but very well controlled in the past. Hx of ocular migraines. Has not eaten b/c knew he needed to get worked up. No nausea until arriving in the ER. Only taken metformin today, no other medications. +Edema of bother legs mildly. Had venoseal. No change in edema in last few days/weeks, resolves with compression socks, does not take diuretics. Medical History: Reviewed Medications: Reviewed Surgical History: Reviewed Allergies: Reviewed Social History: No tobacco, no EtoH, no medical marijuana. Code Status: Surrogate decision maker would be his . DNR/DNI, confirmed with patient at bedside. Admission Exam Per Admitting Provider General: A&Ox3. NAD. Cooperative. HEENT: Atraumatic, normocephalic. Dual acuity and hearing grossly intact. Pulm: CTAB A&P. -wheezes, -rales, -rhonchi. Symmetrical chest rise. No increase in work of breathing. No respiratory distress. Cardiac: RRR, -mrg. Radial pulses intact and symmetrical. Abdominal: Trace low sternal/epigastric tenderness mildly worsened by palpation. No rebound. No guarding. Extremities: Warm, dry, moving all extremities equally. Station intact in hands and feet without asymmetry. Trace ankle edema bilaterally. Principal Diagnosis Coronary artery vasospasm Discharge Exam Constitutional: WD/WN, vitals as above Eyes: PERRL, conjunctivae normal, anicteric sclerae ENMT: external ear and nose normal, oropharynx normal Neck: trachea midline, no thyromegaly Respiratory: normal respiratory effort, lungs clear to auscultation Cardiovascular: bradycardic, distant heart sounds, no edema Chest (Breasts): Additional Comments: Tenderness to palpation over sternum (but does not reproduce his pain) Gastrointestinal (Abdomen): normal bowel sounds, soft, nontender, no hepatosplenomegaly Skin: warm, dry, well-perfused Discharge Data Allergies Allergy/AdvReac Type Severity Reaction Status Date / Time mushroom Allergy Severe ANAPHALYAXSIS, Verified 01/13/22 17:35 HIVES doxycycline Allergy Intermediate "CPK Verified 01/13/22 17:35 levels get out of whack" prazosin AdvReac Severe PASSED Verified 01/13/22 17:35 OUT, HIT FACE ON FLOOR daptomycin AdvReac Intermediate Rhabdomyoly Verified 01/13/22 17:35 sis mirtazapine AdvReac Intermediate ITCHY Verified 01/13/22 17:35 FEELING ALL OVER/ARMS Consultations 01/13/22 17:02 ED Decision to Admit Stat 01/13/22 19:50 Consult Cardiology Routine Procedures Performed Operation Date: 01/14/22 11:30 Actual Procedures p Cath, Left with Cors and Vent - Cristino Bucio MD s Cineradiography w/Routine Exam - Cristino Bucio MD Ordered Studies 01/14/22 12:47 CL Cath Imgs for PACS use only Routine Hospital Course (1) Chest pain: This is a 51-year-old gentleman with a history of CAD s/p stent x2, hypertension, dyslipidemia, and type 2 diabetes who presented for evaluation of a 1 day history of chest pain. Chest pain - 1 day history, seen by PCP, had an EKG performed with new T wave inversions compared to EKG from 08/29/2021. EKG on admission confirmed T wave inversions in II, V4, V5, V6, consistent with inferolateral ischemia. No territorial ST segment changes appreciated. - CXR unremarkable, troponins negative x3 - TTE shows EF 55-60%, mild mitral regurgitation, no wall motion abnormalities, consistent with last TTE 04/2021 - cardiac vs GI in setting of known history of esophageal spasm, continued home diltiazem, pantoprazole (received GI cocktail and famotidine in ER) - Cardiology consulted- performed cardiac catheterization today to evaluate for progression of CAD. - Catheterization results- Widely patent circumflex stent, widely patent mid RCA stent, 30 to 40% mid LAD, 20 to 30% proximal RCA. ECG normalized with no T-wave inversions during catheterization. - Most likely etiology of pain was coronary artery vasospasm, pt discharged on Imdur and cardiology f/u in clinic Type 2 diabetes mellitus, well-controlled - most recent A1c 5.3 (12/22/2021) Hyperlipidemia - continued home atorvastatin (20 mg d/t hx of transaminitis on higher doses) Depression - continued home escitalopram Hypertension - Continued home diltiazem, lisinopril, metoprolol succinate DVT prophylaxis: Lovenox FEN/GI: Heart healthy, DM Disposition: [facility] / [facility] with tele CODE STATUS: DNR/DNI (2) Acute electrocardiogram changes: (3) T2DM (type 2 diabetes mellitus): (4) CAD (coronary artery disease): (5) Hypertension: Total Time Total Time Spent Total Time Spent (In Minutes): <30 Discharge Plan Discharge Items Patient Disposition: Home - Self-Care Reason For Visit: CHEST PAIN, CARDIAC EVAL Discharge Diagnosis: Chest pain Activity: Resume your previous activity Non-emergency contact: Primary Care Provider Call non-emergency contact if: you have any medication questions and your pain is concerning for you Follow-up/Referrals: Chicho Palomares MD [Primary Care Provider] - Diet: Heart Healthy Addtl Attending Provider Instructions: You were admitted to [facility] for evaluation of chest discomfort on the recommendation of your PCP. When you got here, we checked your troponins three times, which were all negative. However, we also saw changes on your EKG that could be concerning for strain on your heart. We performed an echocardiogram, which was unchanged from your previous. We consulted cardiology, who decided to do a catheterization procedure. When you were catheterized, your EKG returned to normal and your chest pain resolved. Dr. Bucio, who performed your catheterization, found no evidence of new stenosis, or narrowing, warranting placement of another stent. In summary, as for the cause of your chest pain, one thought is that it may have been from vasospasm, or temporary narrowing, of the blood vessels that nourish your heart (coronary arteries). In an effort to treat future vasospasm, we're going to start you on a medication that dilates blood vessels called Imdur (is osorbide mononitrate). Please take Imdur, 1 tab 30 mg daily. The prescription was sent to your pharmacy. Pending Studies at Discharge: No Stand-Alone Forms: My [facility], Smoking Cessation Medications and DC Order Prescriptions: New isosorbide mononitrate 30 mg tablet extended release 24 hr 30 mg PO QAM Qty: 30 RF: 0 Continued lidocaine 5 % ointment 1 appln TOP UD PRN (Reason: anal irritation) Qty: 30 RF: 0 primidone 50 mg tablet 50 mg PO DAILY PRN (Reason: tremor) 30 Days Qty: 30 RF: 3 pantoprazole 40 mg tablet,delayed release (DR/EC) 40 mg PO HS Qty: 90 RF: 5 diltiazem HCl 180 mg capsule,extended release 24hr 180 mg PO HS Qty: 30 RF: 5 metoprolol succinate 25 mg tablet extended release 24 hr 25 mg PO HS Qty: 90 RF: 3 atorvastatin 20 mg tablet 20 mg PO HS Qty: 90 RF: 3 fluticasone propionate [Flonase Allergy Relief] 50 mcg/actuation spray,suspension 1 sprays intranasal DAILY PRN (Reason: Allergy Symptoms) Qty: 1 RF: 0 escitalopram oxalate [Lexapro] 10 mg tablet 10 mg PO HS RF: 0 hydroxyzine pamoate [Vistaril] 25 mg capsule 25 mg PO HS RF: 0 lisinopril 10 mg tablet 10 mg PO HS Qty: 90 RF: 3 metformin 500 mg tablet 1,000 mg PO BID RF: 0 multivitamin [Daily Multi-Vitamin] Tablet 1 tab PO HS RF: 0 tadalafil [Cialis] 2.5 mg tablet 2.5 mg PO HS RF: 0 nitroglycerin [Nitrostat] 0.4 mg Tablet, Sublingual 0.4 mg Sublingual UD PRN (Reason: CHEST PAINS) RF: 0 aspirin 81 mg Tablet,Delayed Release (Dr/Ec) 81 mg PO HS Qty: 0 RF: 0 vitamin B complex Tablet 1 tab PO HS RF: 0 hydrocortisone 2.5 % cream 1 applic topical BID PRN (Reason: ECZEMA FLARE UPS) RF: 0 ketoconazole 2 % cream 1 applic topical BID PRN (Reason: ECZEMA FLARE UPS) RF: 0 acetaminophen [Tylenol Extra Strength] 500 mg Tablet 500 - 1,000 mg PO DIRECTED PRN (Reason: Pain) RF: 0 lorazepam [Ativan] 1 mg Tablet 1 mg PO HS PRN (Reason: Anxiety) RF: 0 Discharge Orders: Discharge Order (Routine); Ordered 01/14/22 Ordered By: Tatyana Rico Admission Data Admit Date/Time: 01/13/22 18:06 Attending Provider: Ej Baldwin Admit Provider: Raphael Jordan Primary Care Provider: Chicho Palomares Other Providers: Raphael Jordan ; Eulogio Olson Other Interventions: Discharge Summary Assessment (RN) Last Done: 01/14/22 17:02 Supervising Physician Co-Signing Physician Notes I personally examined the patient and verified all spicer points of history and exam, discussed case, and agree with decision making with Dr Rey feeling better - notes that basically at the start of cath procedure, he immediately had resolution of CP and also EKG changes resolved vitals noted nad heent nc at mmm breathing unlabored no accessory musles good effort skn no rsashes no pallor or icterus, neuro no focal deficits CP - very odd situation - given duration but negative troponins would have highly doubted anything coronary/ischemic, but with resolution of CP combined w resolution of EKG changes at time of cath - ?low grade vasospasm? safe for discharge - imdur for now (discussed possibly using amlodipine instead of dilt for esophageal spasm, and then amlodipine would also be effective for coronary vasospasm - for now will add imdur but once situation clearly resolved/he's doing better/etc - may consider that as a change down the road) stable or home, otherwise as above Resident Activity Tracking Resident Involvement: Resident Care Provided Care Provided: Adult Hospital Medicine
--- NOTE | 2022-01-14 18:16 | Billing Data ---
Date of Service January 14, 2022 Coding Level of Care Code 90612 OBS Care - Discharge
== END 2022-01-14 18:34 | disposition home or self-care (01) ==
LOC: ED 15:26 → EDINP 15:26 → SUATTDRO 18:06 → EDINP 20:13 → 2N 23:31 → 2S 01-14 13:12
DX: Z88.8 Allergy status to other drugs, medicaments and biological substances; Z91.018 Allergy to other foods; I25.110 Atherosclerotic heart disease of native coronary artery with unstable angina pectoris; I25.2 Old myocardial infarction; E78.5 Hyperlipidemia, unspecified; Z87.891 Personal history of nicotine dependence; I12.9 Hypertensive chronic kidney disease with stage 1 through stage 4 chronic kidney disease, or unspecified chronic kidney disease; E11.22 Type 2 diabetes mellitus with diabetic chronic kidney disease; Z82.49 Family history of ischemic heart disease and other diseases of the circulatory system; Z79.899 Other long term (current) drug therapy; R94.31 Abnormal electrocardiogram [ECG] [EKG]; Z79.84 Long term (current) use of oral hypoglycemic drugs; Z95.5 Presence of coronary angioplasty implant and graft; Z79.82 Long term (current) use of aspirin; N18.2 Chronic kidney disease, stage 2 (mild); K21.9 Gastro-esophageal reflux disease without esophagitis; Z88.1 Allergy status to other antibiotic agents

== ENCOUNTER 2022-10-17 23:26 | Observation (INO) ==
--- NOTE | 2022-10-17 23:43 | Emergency Department Note ---
History of Present Illness General Chief complaint: Overdose (Intentional) Time Seen by Provider: 10/17/22 23:31 Source: EMS Mode of arrival: EMS Limitations: altered mental status and patient cooperation History of Present Illness Provider complaint: Overdose This is a 52-year-old male brought in by EMS after son requested a well check on his father as he was not responding to any form of communication. Father posted on Facebook earlier this evening that he was going to take Ativan and he was asking people to give him additional Ativan and made statements suggestive of overdose intention. Patient's problem of Ativan was filled the end of August with 30 tablets. Patient does have a history of depression and according to EMS is currently going through divorce. Unknown time of ingestion, unknown of coin gestions. Patient here is somnolent, withdraws to pain, will intermittently speak although seems confused. Vital signs stable for EMS in route. Patient found sitting in a recliner, no evidence of trauma. Home Medications Medication Instructions Recorded Confirmed Type nitroglycerin 0.4 mg sublingual 0.4 mg sublingual UD PRN CHEST 10/04/18 09/02/22 History tablet (Nitrostat) PAINS aspirin 81 mg tablet,delayed 81 mg PO HS #0 tabs 08/27/20 10/18/22 Rx release multivitamin (Daily Multi-Vitamin 1 tab PO HS 09/19/20 10/18/22 History tablet) acetaminophen 500 mg tablet 500 - 1,000 mg PO DIRECTED PRN 06/19/21 10/18/22 History (Tylenol Extra Strength) Pain escitalopram oxalate 10 mg tablet 10 mg PO HS 08/05/21 09/02/22 History (Lexapro) hydroxyzine pamoate 25 mg capsule 25 mg PO HS 08/05/21 10/18/22 History (Vistaril) vitamin B complex 1 tab PO HS 09/08/21 09/02/22 History metoprolol succinate 25 mg 25 mg PO HS #90 tabs 11/12/21 09/02/22 Rx tablet,extended release 24 hr metformin 500 mg tablet 1,000 mg PO BID 12/24/21 10/18/22 History atorvastatin 20 mg tablet 20 mg PO HS #90 tabs 01/05/22 10/18/22 Rx blood sugar diagnostic (OneTouch #300 ea 03/30/22 09/02/22 Rx Verio test strips) lancets 30 gauge (Onetouch Delica #300 ea 03/30/22 09/02/22 Rx Safety Lancet) dulaglutide 0.75 mg/0.5 mL 0.75 mg (0.5 mL) subcut ONCE 30 04/28/22 10/18/22 Rx subcutaneous pen injector days #6 mL (Trulicity) pantoprazole 40 mg tablet,delayed 40 mg PO HS 05/18/22 10/18/22 History release (Protonix) primidone 50 mg tablet (Mysoline) 50 mg PO DAILY PRN tremor 05/18/22 09/02/22 History diltiazem HCl 120 mg 120 mg PO DAILY 07/14/22 10/18/22 History capsule,extended release 24 hr lamotrigine 25 mg tablet (Lamictal) See Rx Instructions .Route 08/13/22 09/02/22 Rx .COMPLEX #60 tabs lisinopril 10 mg tablet 10 mg PO HS #90 tabs 08/17/22 10/18/22 Rx gabapentin 400 mg capsule 300 mg PO TID 10/18/22 10/18/22 History lorazepam 1 mg tablet 1 mg PO DAILY PRN Unknown 10/18/22 10/18/22 History naltrexone 50 mg tablet 50 mg PO DAILY 10/18/22 10/18/22 History Allergies Allergy/AdvReac Type Severity Reaction Status Date / Time mushroom Allergy Severe Anaphylaxis, Verified 09/02/22 13:40 hives doxycycline Allergy Intermediate Abnormal Verified 09/02/22 13:40 CPK levels prazosin AdvReac Severe Syncope Verified 09/02/22 13:40 daptomycin AdvReac Intermediate Rhabdomyoly Verified 09/02/22 13:40 sis mirtazapine AdvReac Intermediate Diffuse Verified 09/02/22 13:40 itching Past Med/Surg History Medical History Anal irritation Reason for PRN lidocaine ointment Anxiety and depression Arthritis Lumbar/thoracic spine Atrial tachycardia Hx CAD (coronary artery disease) Stents x2 (2017) Mild non-obstructive CAD with widely patent stents per 12/2021 cardiac cath > chest pain suspected noncardiac, medical management recommended. CKD (chronic kidney disease) stage 2, GFR 60-89 ml/min Diabetes mellitus Fatty liver GERD (gastroesophageal reflux disease) controlled H/O esophageal spasm History of anemia History of Chiari malformation s/p decompression surgery (~2000) History of GI bleed History of rhabdomyolysis History of stomach ulcers Remote hx Hx of esophageal varices "Controlled" x years per pt Localized swelling, mass or lump of neck Left s/p head/neck ultrasound noting no sonographic abnormality ("blocked lymph node" per pt) Migraine Occular Myocardial Infarction 2018 x2 RUSSELL (nonalcoholic steatohepatitis) Obesity PTSD (post-traumatic stress disorder) Restless leg syndrome Tremor Essential tremors (R/L hands) Surgical History H/O knee surgery Right Hemorrhoid Hemorrhoid banding History of arthroscopy of left shoulder Left shoulder arthroscopy, RCR (02/13/21): LMA#5, atraumatic attempt x1 + PNB at [facility]. No issues per post-op anesthesia progress note. History of cardiac cath 2018 (stents x2) 2019 > no stents 12/2021 > no stents History of colonoscopy History of esophagogastroduodenoscopy (EGD) History of liver biopsy 2019 History of neurologic surgery Foramen magnum decompression for arnold chiari malformation History of tooth extraction Family History Grandfather Family history of esophageal cancer Mother Diabetes Myocardial infarction Hypertension Family history of diabetes mellitus Father Myocardial infarction Hypertension Grandfather (Maternal) Prostate cancer Family hx of colon cancer Brother Myocardial infarction Grandfather (Paternal) Myocardial infarction Grandmother (Paternal) Myocardial infarction Other Colon cancer No family history of adverse response to anesthesia Denies family history of Ovarian cancer Breast cancer Social History Smoking Status: Former smoker Tobacco Type: Cigarettes Age Started Using Tobacco: 17; Age Quit Using Tobacco: 44; packs per day: 1; Smoking End Date: 2014; Second Hand Exposure: No; Hx Alcohol Use: No Hx Substance Use: No Preferred Language: Bahamian Communication Ability: Effective Visual Impairment: No Limitations 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: Normal Industrial Renderer Required: No Beliefs That Will Affect Care: None marital status: Current Living Situation: Spouse current occupational status: other current occupation: unemployed x 2 years b/c of "medical conditions" Other Information That Helps Us Care for You: No Feels Safe at Home: Yes Safety Concerns: Feels Safe At This Time Childhood Exposure to Second-Hand Smoke: Yes Dental Care, Regularly: Yes Physical Activity Frequency: Does not Exercise Seatbelt Use: always Sunscreen Use: Yes Assistive Devices: Glasses Review of Systems A total of 10 systems reviewed and were otherwise negative All systems reviewed & are unremarkable except as noted in HPI & below Physical Exam Vital Signs Vital Signs - 24 hr 10/18/22 01:33 10/18/22 02:01 10/18/22 02:16 Pulse Rate 79 61 58 L Pulse Rate from SpO2 Sensor Respiratory Rate 16 18 16 Blood Pressure 96/58 L 86/49 L 76/45 L Blood Pressure Mean 70 61 55 Pulse Oximetry 100 100 100 Oxygen Delivery Method Nasal Cannula Nasal Cannula Nasal Cannula Oxygen Flow Rate 2 2 2 10/18/22 02:30 10/18/22 03:02 10/18/22 03:00 Pulse Rate 73 69 69 Pulse Rate from SpO2 Sensor 68 69 Respiratory Rate 18 18 15 Blood Pressure 92/56 L 106/72 106/72 Blood Pressure Mean 68 83 83 Pulse Oximetry 97 99 99 Oxygen Delivery Method Nasal Cannula Room Air Oxygen Flow Rate 2 10/18/22 03:30 10/18/22 03:45 10/18/22 03:45 Pulse Rate 59 L 72 Pulse Rate from SpO2 Sensor 59 L 92 H Respiratory Rate 14 11 L Blood Pressure 77/46 L 110/64 Blood Pressure Mean 56 79 Pulse Oximetry 100 81 L Oxygen Delivery Method Oxygen Flow Rate 10/18/22 04:00 10/18/22 04:00 10/18/22 04:30 Pulse Rate 63 Pulse Rate from SpO2 Sensor 62 Respiratory Rate 14 Blood Pressure 94/47 L 93/65 L Blood Pressure Mean 62 74 Pulse Oximetry 98 Oxygen Delivery Method Oxygen Flow Rate 10/18/22 04:30 10/18/22 05:00 10/18/22 05:00 Pulse Rate 62 63 Pulse Rate from SpO2 Sensor 62 62 Respiratory Rate 14 18 Blood Pressure 99/62 L Blood Pressure Mean 74 Pulse Oximetry 99 100 Oxygen Delivery Method Oxygen Flow Rate 10/18/22 05:30 10/18/22 05:30 10/18/22 06:00 Pulse Rate 78 Pulse Rate from SpO2 Sensor 77 Respiratory Rate 18 Blood Pressure 98/57 L 96/59 L Blood Pressure Mean 70 71 Pulse Oximetry 97 Oxygen Delivery Method Oxygen Flow Rate 10/18/22 06:00 10/18/22 08:27 Pulse Rate 62 Pulse Rate from SpO2 Sensor 62 Respiratory Rate 14 20 Blood Pressure Blood Pressure Mean Pulse Oximetry 99 88 L Oxygen Delivery Method Room Air Oxygen Flow Rate GENERAL: well nourished, no distress, non-toxic EYE EXAM: normal conjunctiva, PERRL and EOM's grossly intact OROPHARYNX: no exudate, no erythema, lips, buccal mucosa, and tongue normal and mucous membranes are dry NECK: supple, no nuchal rigidity, no adenopathy, non-tender LUNGS: Clear to auscultation. Normal chest wall mechanics, no w/r/r HEART: no murmurs, S1 normal and S2 normal ABDOMEN: abdomen soft, non-tender, normo-active bowel sounds, no masses, no rebound or guarding. BACK: Back is symmetrical on inspection and there is no deformity, no midline tenderness, no CVA tenderness. SKIN: no rashes and no bruising UPPER EXTREMITIES: upper extremities are grossly normal. FROM, nml pulses b/l. LOWER EXTREMITIES: No pitting edema. FROM, nml pulses b/l. NEURO EXAM: Somnolent, withdraws to pain, moans and mumbles nonsensical words, no obvious facial droop, moves all extremities spontaneously Course Course 0018: No change after narcan. Spoke with pharmacy to help with med rec. PDMP with ativan and percocet filled in the last several months. 0035: Patient slightly more easily aroused with painful stimuli although still somnolent. 0135: Vital signs stable, patient still sleeping. 0442: Discussed with poison control. No additional recommendations at this time. Did suggest checking a phenobarbital level as a precaution due to the p rescribed primidone. Would continue to monitor. 0720: Patient awakens easily and can answer brief questions but is still somnolent. Administered Medications Aspirin (Aspirin 81 Mg Ectab) 81 mg PO HS SARA Stop: 11/17/22 20:59 Last Admin: 10/18/22 21:12 Dose: 81 mg Documented By: LAT Escitalopram Oxalate (Escitalopram Oxalate 10 Mg Tab) 10 mg PO HS SARA Stop: 11/17/22 20:59 Last Admin: 10/18/22 21:13 Dose: 10 mg Documented By: LAT Heparin Sodium (Porcine) (Heparin Sod 5,000 Unit/0.5 Ml Vial) 5,000 units SQ Q12 SARA Stop: 11/17/22 20:59 Last Admin: 10/18/22 21:13 Dose: 5,000 units Documented By: SERGIO Insulin Aspart (Insulin Aspart Per Unit) 0 units SC ACHS SARA Stop: 11/17/22 15:20 Last Admin: 10/18/22 21:30 Dose: Not Given Documented By: SERGIO Co-signed By: ROBERTO Admin: 10/18/22 16:35 Dose: Not Given Documented By: Admin: 10/18/22 16:34 Dose: Not Given Documented By: LOUANN Insulin Glargine (Lantus Per Unit Charge) 9 units SQ BID SARA Stop: 11/17/22 15:20 Last Admin: 10/18/22 21:30 Dose: Not Given Documented By: Admin: 10/18/22 16:35 Dose: Not Given Documented By: LOUANN Lisinopril (Lisinopril 10 Mg Tab) 10 mg PO HS SARA Stop: 11/17/22 20:59 Last Admin: 10/18/22 21:14 Dose: 10 mg Documented By: SERGIO Miscellaneous (Carbohydrates For Hypoglycemia ) 15 - 30 gm PO UD PRN PRN Reason: Hypoglycemia Protocol Stop: 11/17/22 15:20 Last Admin: 10/18/22 16:37 Dose: 15 gm Documented By: Admin: 10/18/22 16:11 Dose: 15 gm Documented By: LOUANN Multivitamins (Multivitamin Tab) 1 tab PO HS SARA Stop: 11/17/22 20:59 Last Admin: 10/18/22 21:13 Dose: 1 tab Documented By: SERGIO Pantoprazole Sodium (Pantoprazole 40 Mg Tab) 40 mg PO HS SARA Stop: 11/17/22 20:59 Last Admin: 10/18/22 21:29 Dose: 40 mg Documented By: SERGIO Discontinued Medications Flumazenil (Flumazenil 0.1 Mg/1 Ml 10 Ml Vial) 0.2 mg IV NOW STA Stop: 10/18/22 00:02 Last Admin: 10/18/22 00:19 Dose: 0.2 mg Documented By: KENNETH Sodium Chloride (Nss 1000ml) 1,000 mls @ 125 mls/hr IV .Q8H SARA Stop: 11/16/22 23:44 Last Admin: 10/18/22 15:48 Dose: Not Given Documented By: Infusion: 10/18/22 01:52 Dose: 0 mls/hr Documented By: Infusion: 10/18/22 01:00 Dose: 999 mls/hr Documented By: Admin: 10/17/22 23:53 Dose: 125 mls/hr Documented By: KENNETH Magnesium Sulfate/Dextrose (Magnesium Sulfate / D5w) 1 gm in 100 mls @ 100 mls/hr IV NOW STA Stop: 10/18/22 00:53 Last Infusion: 10/18/22 01:03 Dose: 0 mls/hr Documented By: Admin: 10/17/22 23:57 Dose: 100 mls/hr Documented By: KENNETH Sodium Chloride (Nss 1000ml) 1,000 mls @ 150 mls/hr IV .Q6H40M SARA Stop: 11/17/22 01:44 Last Admin: 10/18/22 15:48 Dose: Not Given Documented By: Admin: 10/18/22 15:48 Dose: Not Given Documented By: Infusion: 10/18/22 04:58 Dose: 0 mls/hr Documented By: Infusion: 10/18/22 03:00 Dose: 150 mls/hr Documented By: Infusion: 10/18/22 02:24 Dose: 999 mls/hr Documented By: Admin: 10/18/22 01:41 Dose: 150 mls/hr Documented By: KENNETH Magnesium Sulfate/Dextrose (Magnesium Sulfate / D5w) 1 gm in 100 mls @ 100 mls/hr IV NOW STA Stop: 10/18/22 05:23 Last Infusion: 10/18/22 05:32 Dose: 0 mls/hr Documented By: Admin: 10/18/22 04:32 Dose: 100 mls/hr Documented By: KENNETH Sodium Chloride (Nss 1000ml) 1,000 mls @ 125 mls/hr IV .Q8H SARA Stop: 11/17/22 06:44 Last Admin: 10/18/22 15:48 Dose: Not Given Documented By: Infusion: 10/18/22 15:48 Dose: 0 mls/hr Documented By: Admin: 10/18/22 06:54 Dose: 125 mls/hr Documented By: FRANK Naloxone HCl (Naloxone Hcl 0.4 Mg/1 Ml Vial/Carp) 0.4 mg IV NOW STA Stop: 10/18/22 00:01 Last Admin: 10/18/22 00:05 Dose: 0.4 mg Documented By: KENNETH Medical Decision Making Differential Diagnosis Overdose, toxicologic, infection, hypoglycemia, electrolyte abnormalities, cardiac sources, intracerebral event, neurologic, trauma, as well as other pathologies. Medical Records Attestation: I reviewed the patient's medical records. Home Medications Current Medication List: was personally reviewed by me Laboratory Data Attestation: I reviewed the patient's lab results. Result diagrams: 10/17/22 23:40 10/18/22 16:50 Lab Results 10/17/22 10/17/22 10/17/22 Range/Units 23:40 23:40 23:40 WBC (4.8-10.8) K/ul RBC (4.63-6.08) M/uL Hgb (14.0-18.0) g/dl Hct (40.1-51.0) % MCV (80.0-100.0) fL MCH (25.0-34.0) pg MCHC (32.0-36.0) g/dL RDW Std Deviation (36.4-46.3) fL RDW Coeff of Heather (11.5-14.5) % Plt Count (130-400) K/uL MPV (9.4-12.4) fL Immature Gran % (Auto) % Neut % (Auto) % Lymph % (Auto) % Tama % (Auto) % Eos % (Auto) % Baso % (Auto) % Neut # (Auto) (1.4-6.5) K/uL Lymph # (Auto) (1.2-3.4) K/uL Tama # (Auto) (0.24-0.82) K/uL Eos # (Auto) (0-0.50) K/uL Baso # (Auto) (0-0.2) K/uL Immature Gran # (Auto) (0.00-0.02) K/uL PT 10.9 (9.0-12.0) Seconds INR 1.0 (0.9-1.1) Sodium 138 (136-145) mmol/L Potassium 3.8 (3.5-5.1) mmol/L Chloride 105 (98-107) mmol/L Carbon Dioxide 27 (21-32) mmol/L Anion Gap 6 (3-11) BUN 7 (6-23) mg/dl Creatinine 0.88 (0.6-1.4) mg/dl Est Cr Clr Drug Dosing 107.8 ml/min Est GFR ( Amer) 114.5 ml/min Est GFR (Non-Af Amer) 98.8 ml/min BUN/Creatinine Ratio 8.0 L (10-20) Glucose 83 (70-99(Fasting)) mg/dl POC Glucose (70-99) mg/dl Calcium 9.2 (8.5-10.1) mg/dl Magnesium 1.9 (1.7-2.4) mg/dl Total Bilirubin 0.7 (0.2-1.0) mg/dl AST 37 (13-39) U/L ALT 47 (7-52) U/L Alkaline Phosphatase 95 (34-104) U/L Troponin I High Sens 6.3 (0-20) pg/ml Total Protein 6.7 (6.0-8.3) gm/dl Albumin 4.3 (3.4-5.0) gm/dl Globulin 2.4 L (2.5-4.0) gm/dl Albumin/Globulin Ratio 1.8 (0.9-2) Lipase 81 (11-82) U/L Salicylates < 3.0 L (3.0-30) mg/dl Acetaminophen < 3 L (10-30) ug/ml Phenobarbital (10-40) mcg/ml Ethyl Alcohol mg/dL (<10.0) mg/dl SARS-CoV-2, RNA, NAAT (NEGATIVE) 10/17/22 10/17/22 10/17/22 Range/Units 23:40 23:40 23:41 WBC 6.62 (4.8-10.8) K/ul RBC 4.80 (4.63-6.08) M/uL Hgb 16.0 (14.0-18.0) g/dl Hct 46.0 (40.1-51.0) % MCV 95.8 (80.0-100.0) fL MCH 33.3 (25.0-34.0) pg MCHC 34.8 (32.0-36.0) g/dL RDW Std Deviation 41.9 (36.4-46.3) fL RDW Coeff of Heather 11.9 (11.5-14.5) % Plt Count 163 (130-400) K/uL MPV 9.0 L (9.4-12.4) fL Immature Gran % (Auto) 0.3 % Neut % (Auto) 52.7 % Lymph % (Auto) 32.6 % Tama % (Auto) 11.2 % Eos % (Auto) 2.4 % Baso % (Auto) 0.8 % Neut # (Auto) 3.49 (1.4-6.5) K/uL Lymph # (Auto) 2.16 (1.2-3.4) K/uL Tama # (Auto) 0.74 (0.24-0.82) K/uL Eos # (Auto) 0.16 (0-0.50) K/uL Baso # (Auto) 0.05 (0-0.2) K/uL Immature Gran # (Auto) 0.02 (0.00-0.02) K/uL PT (9.0-12.0) Seconds INR (0.9-1.1) Sodium (136-145) mmol/L Potassium (3.5-5.1) mmol/L Chloride (98-107) mmol/L Carbon Dioxide (21-32) mmol/L Anion Gap (3-11) BUN (6-23) mg/dl Creatinine (0.6-1.4) mg/dl Est Cr Clr Drug Dosing ml/min Est GFR ( Amer) ml/min Est GFR (Non-Af Amer) ml/min BUN/Creatinine Ratio (10-20) Glucose (70-99(Fasting)) mg/dl POC Glucose 82 (70-99) mg/dl Calcium (8.5-10.1) mg/dl Magnesium (1.7-2.4) mg/dl Total Bilirubin (0.2-1.0) mg/dl AST (13-39) U/L ALT (7-52) U/L Alkaline Phosphatase (34-104) U/L Troponin I High Sens (0-20) pg/ml Total Protein (6.0-8.3) gm/dl Albumin (3.4-5.0) gm/dl Globulin (2.5-4.0) gm/dl Albumin/Globulin Ratio (0.9-2) Lipase (11-82) U/L Salicylates (3.0-30) mg/dl Acetaminophen (10-30) ug/ml Phenobarbital (10-40) mcg/ml Ethyl Alcohol mg/dL 181.1 H (<10.0) mg/dl SARS-CoV-2, RNA, NAAT (NEGATIVE) 10/17/22 10/18/22 10/18/22 Range/Units 23:45 02:50 04:50 WBC (4.8-10.8) K/ul RBC (4.63-6.08) M/uL Hgb (14.0-18.0) g/dl Hct (40.1-51.0) % MCV (80.0-100.0) fL MCH (25.0-34.0) pg MCHC (32.0-36.0) g/dL RDW Std Deviation (36.4-46.3) fL RDW Coeff of Heather (11.5-14.5) % Plt Count (130-400) K/uL MPV (9.4-12.4) fL Immature Gran % (Auto) % Neut % (Auto) % Lymph % (Auto) % Tama % (Auto) % Eos % (Auto) % Baso % (Auto) % Neut # (Auto) (1.4-6.5) K/uL Lymph # (Auto) (1.2-3.4) K/uL [place]ama # (Auto) (0.24-0.82) K/uL Eos # (Auto) (0-0.50) K/uL Baso # (Auto) (0-0.2) K/uL Immature Gran # (Auto) (0.00-0.02) K/uL PT (9.0-12.0) Seconds INR (0.9-1.1) Sodium (136-145) mmol/L Potassium (3.5-5.1) mmol/L Chloride (98-107) mmol/L Carbon Dioxide (21-32) mmol/L Anion Gap (3-11) BUN (6-23) mg/dl Creatinine (0.6-1.4) mg/dl Est Cr Clr Drug Dosing ml/min Est GFR ( Amer) ml/min Est GFR (Non-Af Amer) ml/min BUN/Creatinine Ratio (10-20) Glucose (70-99(Fasting)) mg/dl POC Glucose 75 (70-99) mg/dl Calcium (8.5-10.1) mg/dl Magnesium (1.7-2.4) mg/dl Total Bilirubin (0.2-1.0) mg/dl AST (13-39) U/L ALT (7-52) U/L Alkaline Phosphatase (34-104) U/L Troponin I High Sens (0-20) pg/ml Total Protein (6.0-8.3) gm/dl Albumin (3.4-5.0) gm/dl Globulin (2.5-4.0) gm/dl Albumin/Globulin Ratio (0.9-2) Lipase (11-82) U/L Salicylates (3.0-30) mg/dl Acetaminophen (10-30) ug/ml Phenobarbital < 5.0 L (10-40) mcg/ml Ethyl Alcohol mg/dL (<10.0) mg/dl SARS-CoV-2, RNA, NAAT NEGATIVE (NEGATIVE) Imaging Data Radiologist's Impression: Chest X-Ray 10/17/22 23:37 SINGLE VIEW CHEST CLINICAL HISTORY: Overdose. FINDINGS: An AP, portable, semierect chest radiograph is compared to study dated 09/14/2022. Correlation is made with chest CT dated 02/17/2021. The cardiomediastinal silhouette is top normal for projection. There are low lung volumes with bibasilar atelectasis. The lungs and pleural spaces are otherwise clear. No pneumothorax is seen. The bony thorax is grossly intact. IMPRESSION: No active disease in the chest. ACT 112: Negative or not required by law. Electronically signed by: Jose Hernandez M.D. 10/18/2022 7:[address] 10/18/22 06:16 CT OF THE HEAD WITHOUT CONTRAST CLINICAL HISTORY: Altered mental status. COMPARISON STUDY: Head CT September 14, 2022 and MRI of the brain July 09, 2020. CT DOSE: 614.27 mGy.cm TECHNIQUE: Helical axial images of the head were obtained without IV contrast. Automated exposure control was utilized for the study. A dose lowering technique was utilized adhering to the principles of ALARA. FINDINGS: No acute intracranial hemorrhage, midline shift or mass effect is present. The ventricular system is unremarkable. The basal cisterns are patent. No extra-axial collections are present. There are no findings to suggest acute dural sinus thrombosis or acute territorial infarct. No is no acute calvarial fracture. There are stable postoperative findings following suboccipital craniectomy. Mild mucosal thickening with a small air-fluid level within the left maxillary sinus is noted. Similar findings were shown on prior exam. IMPRESSION: No acute intracranial findings. ACT 112: Negative or not required by law. Electronically signed by: Pieter Villegas M.D. 10/18/2022 6:51 AM ECG Data Attestation: I personally reviewed and interpreted this ECG as follows: Indication: + toxicologic Rate (beats per minute): 85 Rhythm: + normal sinus ECG Intervals/blocks: + Normal QRS and + Prolonged QT ECG [place]: + Left axis deviation ECG ST segments: + Nonspecific ST abnormalities MDM Narrative An order was placed for continuous cardiac monitoring. The monitor shows a rate of _74__ with _normal sinus_ rhythm. Patient has no contributory family history. Patient was first seen and observation began at 2331 and was necessary in order to monitor for changes in evolving symptoms/complications due to overdose. Upon re-evaluation, 9 hours of observation revealed that the patient could be discharged. Discharge from observation time at 0900. This is a 52-year-old male brought in for a suspected intentional overdose. Significant time spent evaluating patient's med list on recent PCP visit and hospitalizations, checking PDMP, and asking pharmacy to help evaluate further channels with patient may have had access to. Vitals laying near patient suggest that he took Ativan and possibly primidone or naltrexone. Labs drawn and sent, patient monitored on telemetry, IV fluids started. Patient had no significant improvement with Narcan or flumazenil, no additional doses were given. Patient remained hemodynamically stable overnight, he was given IV fluid rehydration. Patient slowly became more arousable, although was still somnolent. Patient's labs otherwise reassuring. I do not otherwise suspect any additional coingestion. By the morning patient was responsive to voice and would follow commands and answer simple questions. He was signed out awaiting mental health evaluation and placement. Impression & Plan Altered mental status, Depression, Intentional overdose, Suicide attempt Discharge Plan Visit Data Chief Complaint: Overdose (Intentional) ED Provider: Derek Howard Discharge Problem: Altered mental status, Depression, Intentional overdose, Suicide attempt Patient Disposition: Admitted As Inpatient Discharge Instructions Interventions: ED Discharge Assessment Last Done: 10/18/22 15:00
[2022-10-17] MEDS: SODIUM CHLORIDE 0.9% 1000ML 1,000 ML IV SCH (23:53)
[2022-10-17] MEDS ORDERED: MAGNESIUM SULFATE / D5W 1 GM/100 ML BAG IV STA (23:54)
[2022-10-18] MEDS ORDERED: NALOXONE HCL 0.4 MG/1 ML VIAL/CARP IV STA
[2022-10-18] MEDS ORDERED: FLUMAZENIL 0.1 MG/1 ML 10 ML VIAL IV STA (00:01)
[2022-10-18 00:03] LABS: Basophils # (auto) 0.05 K/uL (0-0.2); Basophils % (auto) 0.8 %; Eosinophils # (auto) 0.16 K/uL (0-0.50); Eosinophils % (auto) 2.4 %; Immature Granulocytes # (auto) 0.02 K/uL (0.00-0.02); Immature Granulocytes % (auto) 0.3 %; Lymphocytes # (auto) 2.16 K/uL (1.2-3.4); Lymphocytes % (auto) 32.6 %; Mean Corpuscular Hemoglobin 33.3 pg (25.0-34.0); Mean Corpuscular Hgb Conc 34.8 g/dL (32.0-36.0); Mean Corpuscular Volume 95.8 fL (80.0-100.0); Monocytes # (auto) 0.74 K/uL (0.24-0.82); Monocytes % (auto) 11.2 %; Neutrophils # (auto) 3.49 K/uL (1.4-6.5); Neutrophils % (auto) 52.7 %; Platelet Count 163 K/uL (130-400); RDW Coefficient of Variation 11.9 % (11.5-14.5); RDW Standard Deviation 41.9 fL (36.4-46.3); White Blood Count 6.62 K/ul (4.8-10.8)
[2022-10-18 00:20] LABS: Prothrombin Time 10.9 Seconds (9.0-12.0)
[2022-10-18 00:32] LABS: Acetaminophen < 3 ug/ml (10-30); Salicylate < 3.0 mg/dl (3.0-30)
[2022-10-18 00:33] LABS: Albumin Globulin Ratio 1.8 (0.9-2); Albumin Level 4.3 gm/dl (3.4-5.0); Bilirubin,Total 0.7 mg/dl (0.2-1.0); Calcium 9.2 mg/dl (8.5-10.1); Creatinine Clr Calc Pharmacy 107.8 ml/min; Est GFR (African American) 114.5 ml/min; Est GFR (Non-African American) 98.8 ml/min; Globulin 2.4 gm/dl (2.5-4.0); Magnesium 1.9 mg/dl (1.7-2.4); Potassium 3.8 mmol/L (3.5-5.1); Total Protein 6.7 gm/dl (6.0-8.3)
[2022-10-18 00:36] LABS: Troponin I High Sensitivity 6.3 pg/ml (0-20)
[2022-10-18] MEDS: SODIUM CHLORIDE 0.9% 1000ML 1,000 ML IV SCH ×5 (01:41→15:48)
[2022-10-18] MEDS ORDERED: MAGNESIUM SULFATE / D5W 1 GM/100 ML BAG IV STA (04:24)
--- NOTE | 2022-10-18 06:52 | CT Scan Report ---
CT OF THE HEAD WITHOUT CONTRAST CLINICAL HISTORY: Altered mental status. COMPARISON STUDY: Head CT September 14, 2022 and MRI of the brain July 09, 2020. CT DOSE: 614.27 mGy.cm TECHNIQUE: Helical axial images of the head were obtained without IV contrast. Automated exposure con trol was utilized for the study. A dose lowering technique was utilized adhering to the principles o f ALARA. FINDINGS: No acute intracranial hemorrhage, midline shift or mass effect is present. The ventricular system is unremarkable. The basal cisterns are patent. No extra-axial collections are present. There are no findings to suggest acute dural sinus thrombosis or acute territorial infarct. No is no acute calvarial fracture. There are stable postoperative findings following suboccipital craniectomy. Mild mucosal thickening with a small air-fluid level within the left maxillary sinus is noted. Similar fin dings were shown on prior exam. IMPRESSION: No acute intracranial findings. ACT 112: Negative or not required by law. Electronically signed by: Pieter Villegas M.D. 10/18/2022 6:51 AM
--- NOTE | 2022-10-18 07:57 | XRay Report ---
SINGLE VIEW CHEST CLINICAL HISTORY: Overdose. FINDINGS: An AP, portable, semierect chest radiograph is compared to study dated 09/14/2022. Correlat ion is made with chest CT dated 02/17/2021. The cardiomediastinal silhouette is top normal for project ion. There are low lung volumes with bibasilar atelectasis. The lungs and pleural spaces are otherwis e clear. No pneumothorax is seen. The bony thorax is grossly intact. IMPRESSION: No active disease in the chest. ACT 112: Negative or not required by law. Electronically signed by: Jose Hernandez M.D. 10/18/2022 7:56 AM
--- NOTE | 2022-10-18 08:49 | Emergency Department Note ---
ED Visit Note 0848: Signout from Dr. Nielsen. 52-year-old male with history of depression with attempted overdose due to recent divorce. Awaiting psychiatric evaluation and possible placement. Medically cleared. CT negative. 0950: Patient was attempted to be assessed by psychiatric bilingual case manager however the patient was continuously excessively sleepy and nodding off. Repeat EKG showed sinus rhythm with rate of 64. MO 204 QRS [address] elevation or ST depression. Patient will be admitted to the medicine service for his polypharmacy overdose until he hien up and can be assessed promptly by psychiatry. .
[2022-10-18 09:13] LABS: Appearance Urine Clear (Clear); Bilirubin Urine Negative (Negative); Blood Urine Negative (Negative); Color Urine Yellow; Glucose Urine UA Negative (Negative); Ketones Urine Negative (Negative); Leukocyte Esterase Urine Negative (Negative); Nitrite Urine Negative (Negative); Protein Urine Negative (Negative); Specific Gravity Urine 1.013 (1.000-1.030); Urobilinogen Urine Negative (Negative)
[2022-10-18 09:58] LABS: Amphetamines+Metham, Urine Neg (Neg); Barbiturates, Urine Neg (Neg); Benzodiazepine, Urine Neg (Neg); Cocaine, Urine Neg (Neg); MDMA (Ecstacy), Urine Neg (Neg); Methadone, Urine Neg (Neg); Opiate, Urine Neg (Neg); Phencyclidine, Urine Neg (Neg)
--- NOTE | 2022-10-18 10:38 | History & Physical Report ---
Date of Service October 18, 2022 Assessment & Plan (1) Intentional overdose: Plan: Intentional overdose -Up to 30 Ativan, primidone, lorazepam around 8:30 PM on 10/17/2022 with alcohol level 181 on admission Awakens easily morning of 10/18, somewhat somnolent and goes back to sleep. 2 L oxygen with history of sleep apnea, improving Follow on med telemetry, repeat BMP check with VBG in afternoon, follow for Ativan washout. Currently hemodynamically stable, BP in room 118/62 Patient only took 1 Lexapro last night, was not part of his ingestion per patient. Will continue, BHU/psych consulted for additional management Suicide precautions, safe tray Salicylate negative, phenobarb negative, alcohol 181, marijuana screen positive, APAP negative on admit No additional recommendations per poison control. Repeat BMP/VBG x1 pending Guarding airway, hemodynamically stable at bedside CAD s/p PCI Cath 01/14/2022 showing widely patent circumflex stent, widely patent mid RCA stent, 30 to 40% mid LAD stenosis, 20 to 30% proximal RCA stenosis without any evidence of high-grade CAD requiring reintervention. Chest pain at that time was suspected due to vasospasm. Was discharged to continue aspirin. Original stents placed 2018. Continue aspirin Metoprolol temporarily held for hypotension, resume tonight if normotensive QT initially prolonged, narrowed on recheck. No clinical chest pain. Type II DM Hold home antilipemics Glucose checks AC/at bedtime DM diet Basal bolus with sliding scale. Lantus 9 twice daily, CF 45, CR 60 Hyperlipidemia Statin temporarily held in the setting of ingestion/alcohol washout Transaminases normal on admission Depression Lexapro 10 mg in the evening BHU consulted in setting of intentional overdose of Suicide precautions Hypertension Previously on diltiazem, lisinopril, metoprolol Pending med check fax from [facility] Hold lisinopril/metoprolol/diltiazem for hypotension, improving and normotensive at bedside If blood pressure climbing resume metoprolol, then diltiazem, then lisinopril CKD Admitting creatinine normal Trend daily History hemochromatosis Hemoglobin 16 on admission, no transaminitis DVT prophylaxis: Heparin twice daily Diet: Safe tray/heart healthy/DM CODE STATUS: Full code Disposition: Medical telemetry for another 12 hours as observation, then recommend transfer to BHU if no metabolic derangements/hypoxia/hypotension at that (2) Hypotension: (3) Hypertension: (4) Fatigue: (5) Hemochromatosis: (6) Elevated LFTs: (7) Depression: (8) CKD (chronic kidney disease) stage 2, GFR 60-89 ml/min: (9) BPH NOS w ur obs/LUTS: (10) CAD (coronary artery disease): (11) T2DM (type 2 diabetes mellitus): History of Present Illness Primary Care Provider: Chicho Palomares MD Paddy is a 52-year-old male with past medical history of depression, hypertension, Chiari malformation type I, MAHAMED, CAD s/p PCI with stent placement, RUSSELL, essential tremor, BPH with LUTS, night terrors, type II DM, CKD, PTSD, and depression who presented to the emergency department at 11 PM last night after an intentional Ativan overdose. Paddy is seen at the bedside, signout received by ER physician. Patient had presented around 11 PM prior evening following an intentional overdose with Ativan, primidone, and lorazepam around 8:30 PM on 10/17/2022. Patient reports that he has a history of depression and 1 past episode of feeling similarly low for which she sees a outpatient therapist. continues lexapro daily, only took 1 last night. He reports that he has been going through difficult divorce for 2-3 months, reports nothing in particular changed in the last week but things just seem like they were exploding. He reports he did not feel well, at home. He denies that his intention was to end his life by taking the overdose, but does not verbalize what his intention was. At bedside denies current SI/HI, but endorses depression and a feeling of not being welcome in his life. He reports he did not take any other medications last night other than the naltrexone/primidone/lorazepam, approximately a small handful but he is not sure exactly how many. He was found after his son requested a well check from EMS after Paddy based on her Facebook he is going to take Ativan around the divorce, unknown amount of ingestion but patient did have a prescription for 30 tablets of Ativan filled at the end of August. EKG on admission: Sinus rhythm first-degree AV block, CO 210, QTc 507 nonspecific T wave abnormality repeat EKG 10/18/2022: QTC 470, NSR, CO 204 No leukocytosis Hemoglobin 16.0 Sodium normal, potassium normal Creatinine less than 1 at baseline, 0.88 on admission POC glucose normal overnight UA uninfected appearing U tox positive for marijuana, otherwise clear Ethyl alcohol 181 on admission CThead: No acute findings CXR: No acute findings Reports he is not sure his medications, notes that he has had many medications and that he is followed by [facility] and the list can be gotten from them for reconciliation. He is not sure the last time he took his medications, did not take them yesterday. Does have a cardiac history. At time of bedside assessment he endorses feeling sleepy and tired, but denies fever/chills/syncope/presyncope/lightheadedness/dizziness/shortness of breath/difficulty breathing/chest pain/chest pressure/nausea/vomiting/diarrhea/abdominal pain. Former tobacco use Intermittent marijuana use Social alcohol use, did drink alcohol with his ingestion yesterday CODE STATUS: UFull Allergies Allergy/AdvReac Type Severity Reaction Status Date / Time mushroom Allergy Severe Anaphylaxis, Verified 09/02/22 13:40 hives doxycycline Allergy Intermediate Abnormal Verified 09/02/22 13:40 CPK levels prazosin AdvReac Severe Syncope Verified 09/02/22 13:40 daptomycin AdvReac Intermediate Rhabdomyoly Verified 09/02/22 13:40 sis mirtazapine AdvReac Intermediate Diffuse Verified 09/02/22 13:40 itching Home Medications Medication Instructions Recorded Confirmed Type nitroglycerin 0.4 mg sublingual 0.4 mg sublingual UD PRN CHEST 10/04/18 09/02/22 History tablet (Nitrostat) PAINS aspirin 81 mg tablet,delayed 81 mg PO HS #0 tabs 08/27/20 10/18/22 Rx release multivitamin (Daily Multi-Vitamin 1 tab PO HS 09/19/20 10/18/22 History tablet) acetaminophen 500 mg tablet 500 - 1,000 mg PO DIRECTED PRN 06/19/21 10/18/22 History (Tylenol Extra Strength) Pain escitalopram oxalate 10 mg tablet 10 mg PO HS 08/05/21 09/02/22 History (Lexapro) hydroxyzine pamoate 25 mg capsule 25 mg PO HS 08/05/21 10/18/22 History (Vistaril) vitamin B complex 1 tab PO HS 09/08/21 09/02/22 History metoprolol succinate 25 mg 25 mg PO HS #90 tabs 11/12/21 09/02/22 Rx tablet,extended release 24 hr metformin 500 mg tablet 1,000 mg PO BID 12/24/21 10/18/22 History atorvastatin 20 mg tablet 20 mg PO HS #90 tabs 01/05/22 10/18/22 Rx blood sugar diagnostic (OneTouch #300 ea 03/30/22 09/02/22 Rx Verio test strips) lancets 30 gauge (Onetouch Delica #300 ea 03/30/22 09/02/22 Rx Safety Lancet) dulaglutide 0.75 mg/0.5 mL 0.75 mg (0.5 mL) subcut ONCE 30 04/28/22 10/18/22 Rx subcutaneous pen injector days #6 mL (Trulicity) pantoprazole 40 mg tablet,delayed 40 mg PO HS 05/18/22 10/18/22 History release (Protonix) primidone 50 mg tablet (Mysoline) 50 mg PO DAILY PRN tremor 05/18/22 09/02/22 History diltiazem HCl 120 mg 120 mg PO DAILY 07/14/22 10/18/22 History capsule,extended release 24 hr lamotrigine 25 mg tablet (Lamictal) See Rx Instructions .Route 08/13/22 09/02/22 Rx .COMPLEX #60 tabs lisinopril 10 mg tablet 10 mg PO HS #90 tabs 08/17/22 10/18/22 Rx gabapentin 400 mg capsule 300 mg PO TID 10/18/22 10/18/22 History lorazepam 1 mg tablet 1 mg PO DAILY PRN Unknown 10/18/22 10/18/22 History naltrexone 50 mg tablet 50 mg PO DAILY 10/18/22 10/18/22 History Past Med/Surg History Medical History (Updated 10/18/22 @ 11:13 by Raphael Jordan MD) Anal irritation Reason for PRN lidocaine ointment Anxiety and depression Arthritis Lumbar/thoracic spine Atrial tachycardia Hx CAD (coronary artery disease) Stents x2 (2017) Mild non-obstructive CAD with widely patent stents per 12/2021 cardiac cath > chest pain suspected noncardiac, medical management recommended. CKD (chronic kidney disease) stage 2, GFR 60-89 ml/min Diabetes mellitus Fatty liver GERD (gastroesophageal reflux disease) controlled H/O esophageal spasm History of anemia History of Chiari malformation s/p decompression surgery (~2000) History of GI bleed History of rhabdomyolysis History of stomach ulcers Remote hx Hx of esophageal varices "Controlled" x years per pt Localized swelling, mass or lump of neck Left s/p head/neck ultrasound noting no sonographic abnormality ("blocked lymph node" per pt) Migraine Occular Myocardial Infarction 2018 x2 RUSSELL (nonalcoholic steatohepatitis) Obesity PTSD (post-traumatic stress disorder) Restless leg syndrome Tremor Essential tremors (R/L hands) Surgical History H/O knee surgery Right Hemorrhoid Hemorrhoid banding History of arthroscopy of left shoulder Left shoulder arthroscopy, RCR (02/13/21): LMA#5, atraumatic attempt x1 + PNB at [facility]. No issues per post-op anesthesia progress note. History of cardiac cath 2018 (stents x2) 2019 > no stents 12/2021 > no stents History of colonoscopy History of esophagogastroduodenoscopy (EGD) History of liver biopsy 2019 History of neurologic surgery Foramen magnum decompression for arnold chiari malformation History of tooth extraction Family History Grandfather Family history of esophageal cancer Mother Diabetes Myocardial infarction Hypertension Family history of diabetes mellitus Father Myocardial infarction Hypertension Grandfather (Maternal) Prostate cancer Family hx of colon cancer Brother Myocardial infarction Grandfather (Paternal) Myocardial infarction Grandmother (Paternal) Myocardial infarction Other Colon cancer No family history of adverse response to anesthesia Denies family history of Ovarian cancer Breast cancer Social History Smoking Status: Unknown if ever smoked Tobacco Type: Cigarettes Age Started Using Tobacco: 17; Age Quit Using Tobacco: 44; packs per day: 1; Second Hand Exposure: No; Hx Alcohol Use: No (Quit 2019) Hx Substance Use: No Preferred Language: Yoruba Communication Ability: Effective Visual Impairment: No Limitations 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: Normal Training And Development Head Required: No Beliefs That Will Affect Care: None marital status: Current Living Situation: Spouse current occupational status: other current occupation: unemployed x 2 years b/c of "medical conditions" Feels Safe at Home: Yes Childhood Exposure to Second-Hand Smoke: Yes Dental Care, Regularly: Yes Physical Activity Frequency: Does not Exercise Seatbelt Use: always Sunscreen Use: Yes Assistive Devices: None Review of Systems Review of Systems: All systems reviewed & are unremarkable except as noted in HPI & below Physical Exam Physical Exam: General: A somnolent, awakens easily and answers questions appropriately. Endorses ingesting a 3 last night as noted. Follows 1 and two- step commands. Somewhat withdrawn, mild speech slowing. Somewhat flat affect. HEENT: Atraumatic, normocephalic. Pupils equal and reactive to light. Pulm: CTAB A&P. -wheezes, -rales, -rhonchi. Symmetrical chest rise. No increased work of breathing. No respiratory distress. Cardiac: RRR, -mrg. Radial pulses intact and symmetrical. Abdominal: Nontender, nondistended, soft. BS present. : Extremities warm, dry. Sensation soft touch grossly intact in hands/feet Results & Data Results & Data ([facility]) Vital Signs (Past 12 Hours) Vital Signs Temp Pulse Resp BP Pulse Ox O2 Del Method O2 Flow Rate 10/18/22 08:27 20 88 L Room Air 10/18/22 06:00 62 14 99 10/18/22 06:00 96/59 L 10/18/22 05:30 78 18 97 10/18/22 05:30 98/57 L 10/18/22 05:00 63 18 100 10/18/22 05:00 99/62 L 10/18/22 04:30 62 14 99 10/18/22 04:30 93/65 L 10/18/22 04:00 63 14 98 10/18/22 04:00 94/47 L 10/18/22 03:45 110/64 10/18/22 03:45 72 11 L 81 L 10/18/22 03:30 59 L 14 77/46 L 100 10/18/22 03:00 69 15 106/72 99 10/18/22 03:02 69 18 106/72 99 Room Air 10/18/22 02:30 73 18 92/56 L 97 Nasal Cannula 2 10/18/22 02:16 58 L 16 76/45 L 100 Nasal Cannula 2 10/18/22 02:01 61 18 86/49 L 100 Nasal Cannula 2 11/20/22 01:33 79 16 96/58 L 100 Nasal Cannula 2 10/18/22 00:30 62 16 89/59 L 98 Nasal Cannula 2 10/18/22 00:08 75 18 102/61 99 Nasal Cannula 2 10/18/22 00:05 98 Nasal Cannula 2 10/17/22 23:20 87 L Room Air, Nasal Cannula 0 10/17/22 23:20 36.5 C 90 16 106/66 98 Nasal Cannula 2 PG Care Time/CCT Total # of Minutes Spent Total Time Spent with Patient: Total time spent is greater than 50% in coordination of care (as documented) at patient's floor/unit and/or counseling patient: Coding Level of Care Code INT OBSERVATION CARE 50M LVL 2 Diagnoses Intentional overdose T50.902A Hypotension I95.9 Hypertension I10 Fatigue R53.83 Hemochromatosis E83.119 Elevated LFTs R94.5 Depression F32.9 CKD (chronic kidney disease) stage 2, GFR 60-89 ml/min N18.2 BPH NOS w ur obs/LUTS N40.1 CAD (coronary artery disease) I25.110 Coronary Disease-Associated Artery/Lesion type: [place] artery [place] vs. transplanted heart: [place] heart Associated angina: with unstable angina T2DM (type 2 diabetes mellitus) E11.9 (1) CAD (coronary artery disease) Coronary Disease-Associated Artery/Lesion type: [place] artery [place] vs. transplanted heart: [place] heart Associated angina: with unstable angina Qualified Code(s): I25.110 - Atherosclerotic heart disease of [place] coronary artery with unstable angina pectoris
[2022-10-18] MEDS ORDERED: GLUCOSE 40% GEL 15 GM TUBE PO PRN (15:21)
[2022-10-18] MEDS ORDERED: DEXTROSE 50% 50 ML SYRINGE IV PRN (15:21)
[2022-10-18] MEDS ORDERED: GLUCAGON FOR INJ 1 MG VIAL SQ PRN (15:21)
[2022-10-18] MEDS ORDERED: GLUCOSE 10 TAB/TUBE PO PRN (15:21)
--- NOTE | 2022-10-18 15:48 | Psychiatric Consultation ---
Date of Consultation October 18, 2022 Impression / Recommendations Impression This is a 52 yo admitted medically following an intentional overdose suicide attempt in context of divorce. Acute risk of self-harm remains elevated and high given suicide attempt requiring medical admission, major depressive symptoms, history of prior attempts, social isolation, hopelessness, ongoing regret about surviving the attempt, limited insight, high psychic distress. Given elevated risk of harm to self they meet criteria for inpatient psychiatric care for diagnostic clarification, safety/stabilization, development of additional coping skills, medication management and disposition/safety planning once medically stable. If they do not agree to voluntary treatment at that time they will meet criteria for 302 status based on severity of suicide attempt and ongoing modifiable risk factors. (1) Intentional overdose: (2) Suicide attempt: (3) Depression: Plan -Continue 1-on-1 for risk of harm to self -Do not discharge or allow to leave AMA, 302 petition on the chart -Hold psych medications for now -Once medically cleared plan for psychiatric hospitalization (either 201 or 302 status). Psych History Identifying Data 52 yo man with history of depression, T2DM, night terrors, insomnia, CKD, CAD, cirrhosis admitted medically following suicide attempt via overdose. Chief Complaint "I'm disappointed". History of Present Illness Paddy was brought to the ED by EMS after he texted his son "it's not your fault, remember", made some social media posts asking about potential effects of naltrexone and then posted "John and Ralph" leading his son to request a wellfare check. EMS found him minimally responsive and with concern he had ingested an unknown amount of his prescribed ativan 1mg tablets, primidone 50mg tablets and possibly naltrexone tablets. He was medically admitted for ongoing medical monitoring from overdose. When seen this afternoon he remains very tired but is able to engage briefly. Confirms he the medication as a suicide attempt driven by distress from his pending divorce and sense of loneliness as the holiday season approaches. Endorses ongoing SI and regret that he did not stating he feels "disappointed" about surviving the attempt. Wonders how he got here asking "who found me". States he would likely agree to inpatient psych hospitalization once medically stable. Is able to confirm he has a therapist Keya and that his primary care provider is prescribing his psychiatric medications. Further history limited by his level of drowsiness. Currently prescribed escitalopram 20mg qd, lorazepam 1mg prn, hydroxyzine 50mg daily prn, Past Psychiatric History Previous Psych History: long hx of depression since his early 30s and PTSD Outpatient Services: therapist Keya Victor, [facility] Previous Psych Admissions: [facility] 08/25/2020 - 08/27/2020 History of Previous Suicide Attempt: Yes Describe Attempts in the Past: per chart age 12 via tylenol OD Past Medication Trials: per chart review: duloxetine 90mg qhs, doxepin 3mg qhs, ambien, trazodone, Wellbutrin, Zoloft Allergies Allergy/AdvReac Type Severity Reaction Status Date / Time mushroom Allergy Severe Anaphylaxis, Verified 09/02/22 13:40 hives doxycycline Allergy Intermediate Abnormal Verified 09/02/22 13:40 CPK levels prazosin AdvReac Severe Syncope Verified 09/02/22 13:40 daptomycin AdvReac Intermediate Rhabdomyoly Verified 09/02/22 13:40 sis mirtazapine AdvReac Intermediate Diffuse Verified 09/02/22 13:40 itching Home Medications Medication Instructions Recorded Confirmed Type nitroglycerin 0.4 mg sublingual 0.4 mg sublingual UD PRN CHEST 10/04/18 09/02/22 History tablet (Nitrostat) PAINS aspirin 81 mg tablet,delayed 81 mg PO HS #0 tabs 08/27/20 10/18/22 Rx release multivitamin (Daily Multi-Vitamin 1 tab PO HS 09/19/20 10/18/22 History tablet) acetaminophen 500 mg tablet 500 - 1,000 mg PO DIRECTED PRN 06/19/21 10/18/22 History (Tylenol Extra Strength) Pain escitalopram oxalate 10 mg tablet 10 mg PO HS 08/05/21 09/02/22 History (Lexapro) hydroxyzine pamoate 25 mg capsule 25 mg PO HS 08/05/21 10/18/22 History (Vistaril) vitamin B complex 1 tab PO HS 09/08/21 09/02/22 History metoprolol succinate 25 mg 25 mg PO HS #90 tabs 11/12/21 09/02/22 Rx tablet,extended release 24 hr metformin 500 mg tablet 1,000 mg PO BID 12/24/21 10/18/22 History atorvastatin 20 mg tablet 20 mg PO HS #90 tabs 01/05/22 10/18/22 Rx blood sugar diagnostic (OneTouch #300 ea 03/30/22 09/02/22 Rx Verio test strips) lancets 30 gauge (Onetouch Delica #300 ea 03/30/22 09/02/22 Rx Safety Lancet) dulaglutide 0.75 mg/0.5 mL 0.75 mg (0.5 mL) subcut ONCE 30 04/28/22 10/18/22 Rx subcutaneous pen injector days #6 mL (Trulicity) pantoprazole 40 mg tablet,delayed 40 mg PO HS 05/18/22 10/18/22 History release (Protonix) primidone 50 mg tablet (Mysoline) 50 mg PO DAILY PRN tremor 05/18/22 09/02/22 History diltiazem HCl 120 mg 120 mg PO DAILY 07/14/22 10/18/22 History capsule,extended release 24 hr lamotrigine 25 mg tablet (Lamictal) See Rx Instructions .Route 08/13/22 09/02/22 Rx .COMPLEX #60 tabs lisinopril 10 mg tablet 10 mg PO HS #90 tabs 08/17/22 10/18/22 Rx gabapentin 400 mg capsule 300 mg PO TID 10/18/22 10/18/22 History lorazepam 1 mg tablet 1 mg PO DAILY PRN Unknown 10/18/22 10/18/22 History naltrexone 50 mg tablet 50 mg PO DAILY 10/18/22 10/18/22 History Substance Abuse History 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 CKD (chronic kidney disease) stage 2, GFR 60-89 ml/min Diabetes mellitus Fatty liver GERD (gastroesophageal reflux disease) controlled H/O esophageal spasm History of anemia History of Chiari malformation s/p decompression surgery (~2000) History of GI bleed History of rhabdomyolysis History of stomach ulcers Remote hx Hx of esophageal varices "Controlled" x years per pt Localized swelling, mass or lump of neck Left s/p head/neck ultrasound noting no sonographic abnormality ("blocked lymph node" per pt) Migraine Occular Myocardial Infarction 2018 x2 RUSSELL (nonalcoholic steatohepatitis) Obesity PTSD (post-traumatic stress disorder) Restless leg syndrome Tremor Essential tremors (R/L hands) Surgical History H/O knee surgery Right Hemorrhoid Hemorrhoid banding History of arthroscopy of left shoulder Left shoulder arthroscopy, RCR (02/13/21): LMA#5, atraumatic attempt x1 + PNB at [facility]. No issues per post-op anesthesia progress note. History of cardiac cath 2018 (stents x2) 2018 > no stents 12/2021 > no stents History of colonoscopy History of esophagogastroduodenoscopy (EGD) History of liver biopsy 2019 History of neurologic surgery Foramen magnum decompression for arnold chiari malformation History of tooth extraction Family History Grandfather Family history of esophageal cancer Mother Diabetes Myocardial infarction Hypertension Family history of diabetes mellitus Father Myocardial infarction Hypertension Grandfather (Maternal) Prostate cancer Family hx of colon cancer Brother Myocardial infarction Grandfather (Paternal) Myocardial infarction Grandmother (Paternal) Myocardial infarction Other Colon cancer No family history of adverse response to anesthesia Denies family history of Ovarian cancer Breast cancer Social History Smoking Status: Former smoker Tobacco Type: Cigarettes Age Started Using Tobacco: 17; Age Quit Using Tobacco: 44; packs per day: 1; Smoking End Date: 2014; Second Hand Exposure: No; Hx Alcohol Use: No Hx Substance Use: No Preferred Language: Yoruba Communication Ability: Effective Visual Impairment: No Limitations 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: Normal 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 Beliefs That Will Affect Care: None marital status: Current Living Situation: Spouse current occupational status: other current occupation: unemployed x 2 years b/c of "medical conditions" Other Information That Helps Us Care for You: No Feels Safe at Home: Yes Safety Concerns: Feels Safe At This Time Childhood Exposure to Second-Hand Smoke: Yes Dental Care, Regularly: Yes Physical Activity Frequency: Does not Exercise Seatbelt Use: always Sunscreen Use: Yes Assistive Devices: Glasses Physical Exam Psychiatric: Orientation: alert, oriented to person and oriented to place Apperance: appropriately dressed and + disheveled Eye Contact: + poor eye contact Motor Behavior: no abnormal motor movements Speech: + abnormal rate/rhythm/volume of speech (brief, quiet) Affect: + depressed affect Mood: + depressed mood Thought Process: + concrete thought process Thought Content: + hopelessness Suicidal Thoughts: denies suicidal intent; + reports suicidal thoughts and + reports suicidal plan (attempt prior to admission) Homicidal Thoughts: denies homicidal thoughts Hallucinations: no auditory hallucinations and no visual hallucinations Cognition: remote memory grossly intact and language grossly intact; + recent memory not intact and + attention not intact Insight: + limited insight Judgement: + limited judgement Vital Signs (Past 24 Hours): Last Vital Signs Temp 36.7 C 10/18/22 15:24 Pulse 73 10/18/22 15:24 Resp 18 10/18/22 15:24 BP 174/110 H 10/18/22 15:24 Pulse Ox 100 10/18/22 15:24 O2 Del Method 10/18/22 15:24 O2 Flow Rate 2 10/18/22 02:30 Review of Systems Unobtainable due to reduced consciousness Coding Level of Care Code 33638 Inpt Consult Level 3 Diagnoses Intentional overdose T50.902A Suicide attempt T14.91XA Depression F32.A
[2022-10-18] MEDS: CARBOHYDRATES FOR HYPOGLYCEMIA PO PRN ×2 (16:11→16:37)
[2022-10-18] MEDS: INSULIN ASPART PER UNIT SC SCH ×3 (16:34→21:30)
[2022-10-18] MEDS: LANTUS PER UNIT CHARGE SQ SCH ×2 (16:35→21:30)
[2022-10-18 16:59] LABS: Base Excess VBG -0.2 mEq/L; HCO3 VBG 25 mmol/L; Oxygen Saturation VBG 69.4 %; PCO2 VBG 44 mmHg (38-50); PO2 VBG 39 mmHg; pH VBG 7.37 (7.36-7.41)
[2022-10-18 17:42] LABS: BUN Creatinine Ratio 4.7 (10-20); Calcium 8.4 mg/dl (8.5-10.1); Creatinine Clr Calc Pharmacy 119.3 ml/min; Est GFR (African American) 115.6 ml/min; Est GFR (Non-African American) 99.7 ml/min; Potassium 4.3 mmol/L (3.5-5.1)
[2022-10-18] MEDS: ASPIRIN 81 MG ECTAB PO SCH (21:12)
[2022-10-18] MEDS: HEPARIN SOD 5,000 UNIT/0.5 ML VIAL SQ SCH (21:13)
[2022-10-18] MEDS: MULTIVITAMIN TAB PO SCH (21:13)
[2022-10-18] MEDS: ESCITALOPRAM OXALATE 10 MG TAB PO SCH (21:13)
[2022-10-18] MEDS: lisinopril 10 MG TAB PO SCH (21:14)
[2022-10-18] MEDS: PANTOprazole 40 MG TAB PO SCH (21:29)
--- NOTE | 2022-10-19 05:17 | Electrocardiogram Report ---
Test Reason : Blood Pressure : / mmHG Vent. Rate : 085 BPM Atrial Rate : 085 BPM P-R Int : 190 ms QRS Dur : 100 ms QT Int : 400 ms P-R-T Axes : 043 -31 009 degrees QTc Int : 476 ms Normal sinus rhythm Left axis deviation Moderate voltage criteria for LVH, may be normal variant Nonspecific T wave abnormality Abnormal ECG When compared with ECG of 14-SEP-2022 14:46, T wave amplitude has decreased in Anterolateral leads Confirmed by Bakari Lechuga ([id number]) on 10/19/2022 5:16:56 AM Referred By: REFERRED SELF Confirmed By:Bakari Lechuga
--- NOTE | 2022-10-19 05:27 | Electrocardiogram Report ---
Test Reason : Blood Pressure : / mmHG Vent. Rate : 063 BPM Atrial Rate : 063 BPM P-R Int : 200 ms QRS Dur : 088 ms QT Int : 496 ms P-R-T Axes : -03 -26 -17 degrees QTc Int : 507 ms Sinus rhythm Possible Anterior infarct , age undetermined T wave abnormality, consider inferior ischemia Prolonged QT Abnormal ECG When compared with ECG of 17-OCT-2022 23:37, QT has lengthened Confirmed by Bakari Lechuga ([id number]) on 10/19/2022 5:27:31 AM Referred By: REFERRED SELF Confirmed By:Bakari Lechuga
[2022-10-19 06:40] LABS: Base Excess VBG -0.8 mEq/L; Basophils # (auto) 0.03 K/uL (0-0.2); Basophils % (auto) 0.9 %; Eosinophils # (auto) 0.17 K/uL (0-0.50); Eosinophils % (auto) 4.9 %; HCO3 VBG 24 mmol/L; Hematocrit (blood only) 40.9 % (40.1-51.0); Hemoglobin 14.6 g/dl (14.0-18.0); Immature Granulocytes # (auto) 0.01 K/uL (0.00-0.02); Immature Granulocytes % (auto) 0.3 %; Lymphocytes # (auto) 0.93 K/uL (1.2-3.4); Lymphocytes % (auto) 26.9 %; Mean Corpuscular Hemoglobin 33.6 pg (25.0-34.0); Mean Corpuscular Hgb Conc 35.7 g/dL (32.0-36.0); Mean Corpuscular Volume 94.2 fL (80.0-100.0); Mean Platelet Volume 9.2 fL (9.4-12.4); Monocytes # (auto) 0.47 K/uL (0.24-0.82); Monocytes % (auto) 13.6 %; Neutrophils # (auto) 1.85 K/uL (1.4-6.5); Neutrophils % (auto) 53.4 %; Oxygen Saturation VBG 93.1 %; PCO2 VBG 41 mmHg (38-50); PO2 VBG 63 mmHg; Platelet Count 136 K/uL (130-400); RDW Coefficient of Variation 11.8 % (11.5-14.5); RDW Standard Deviation 41.4 fL (36.4-46.3); Red Blood Count 4.34 M/uL (4.63-6.08); White Blood Count 3.46 K/ul (4.8-10.8); pH VBG 7.38 (7.36-7.41)
[2022-10-19 07:03] LABS: BUN Creatinine Ratio 6.2 (10-20); Calcium 8.8 mg/dl (8.5-10.1); Creatinine Clr Calc Pharmacy 117.1 ml/min; Est GFR (African American) 118.4 ml/min; Est GFR (Non-African American) 102.2 ml/min; Potassium 3.8 mmol/L (3.5-5.1)
--- NOTE | 2022-10-19 07:56 | Hospitalist Progress Note ---
Date of Service October 19, 2022 Assessment & Plan (1) Intentional overdose: Plan: Intentional overdose. Given flumazenil/naloxone on admit, NSS, 1gm MAG * Reported ingestion of Ativan/primidone/lorazepam around 8:30 PM on 10/17/2022 with alcohol level 181 on admission (although denies alcohol use). Ativan last filled in end August (09/25/22), so if taking daily, would suspect he would have had about * Had been placed on 2L Oxygen given hx sleep apnea/spo2 81-88 on admission, currently 97% on RA * --> of note, patient w/ repeat sleep study 2020 which did NOT show sleep apnea. Will check overnight pulse ox tonight to see about any desaturations but suspect from respiratory depression from ingested medications * UDS -- +marijuana -- endorses edibles * ALcohol level 181 on admit * CT head negative for acute process but does note prior suboccipital craniectomy -- patient stated hx Chiari malformation * Evaluated AM 10/19, stable, 97% on RA. NSR/sinus jessenia on monitor * Of note, was in ER 09/14 for "transient" chest pain/anxiety/not eating or drinking in several days and sent PO keflex for possible UTI (cx negative) * Endorses long standing history of depression/PTSD, now worse w/ going through divorce * Psych consulted * 302 on chart * Monitoring overnight, possible d/c and admit to inpatient psych tomorrow as discussed with Dr Rosario this morning * WBC not elevated (3.4k, hx cirrhosis, plt borderline low) * May need additional IVF for hydration pending course, reports poor PO intake, likely from depression Depression * He notes longstanding depression/PTSD (childhood trauma, not discussed in detail) * Typically on Lexapro 10mg daily, lamotrigine 25mg, gabapentin 300mg TID, hydroxyzine 25mg HS * Of note, on primidone 50mg daily for essential tremor (checking ammonia given hx cirrhosis to r/o asterixis rather than tremor) -- minimal tremor noted on exam. This has adverse side effect for INCREASED SUICIDAL IDEATION * --> Primidone has not been ordered on admit, had OD with such as above. Would not resume at d/c. 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 Per notes from Dr Resendez, patient diagnosed with cirrhosis in 2018 during an episode of infective endocarditis w/ CT done during that time showing fatty liver. Fibroscan done in follow-up that showed advanced fibrosis. Liver biopsy w/ steatohepatitis and advanced bridging fibrosis. EGD 04/17 with small esophageal varices but to date his cirrhosis not complicated by variceal hemorrhage, hepatic encephalopathy or ascites * Reports does take lactulose daily -- hx elevated ammonia * check ammonia given tremor * Recommend having patient follow up with Dr Atkinson locally if able to arrange outpatient EGD for surveillance * Check B12/folate given +alcohol on admit, although noted patient on B12 * Consider empiric thiamine CAD s/p PCI * patient reports prior stenting in 2018 with 2 stents * [place]s [place] [facility] * Cath 01/14/2022 showing widely patent circumflex stent, widely patent mid RCA stent, 30 to 40% mid LAD stenosis, 20 to 30% proximal RCA stenosis without any evidence of high-grade CAD requiring reintervention. * ECHO w/ mild concentric LVH, normal EF, normal wall motion. mild-mod MR. RVSP normal * --> Chest pain at that time was suspected due to vasospasm and was discharged to continue ASA daily, which has been continued * No chest pain reported however did have episode of chest pain on admit per patient * Trop negative w/ high sensitivity troponin, has remained NSR/sinus jessenia on telemetry -- continue to monitor * EKG w/ CP * Continues on metoprolol, lisinopril -- resumed last evening for elevated BP as was hypotensive on admit, received IVF * QT initially prolonged, narrowed on recheck. No clinical chest pain. Type II DM * A1c 5.2 as outpatient, excellent control on dulaglutide weekly/metformin BID * BSG AC/HS * Discontinued lantus BID given BSGs low normals -- holding outpatient meds * Continue BSG checks AC/HS, sliding scale while inpatient Hyperlipidemia * Statin temporarily held in the setting of ingestion/alcohol washout, typically on atorvastatin 20mg HS (given hx CAD, ?increasing this on outpatient basis) * LFTs wnl -- of note, patient w/ history of cirrhosis, had been on lactulose outpatient, not on med list however patient reported he has been taking this at home and will order daily Hypertension * BP hypotensive on admission, elevated in evening after admit and lisinopril resumed evening HS 10/19 * Metoprolol succinate 25mg, diltiazem resumed this morning for elevated BP, currently stable at 142/81 * He does report history of orthostatic hypotension/lightheaded/dizzy --> check orthostatics/hold diuretics if + and order fluids. Not overly dehyrated on exam but not w/ much PO intake reported * Monitor CKD * Hx of, Cr normal on admit. Did get IVF, lisinopril resumed last evening * Cr 0.81 on am labs, does not appear overly dehydrated * Monitor on AM labs DVT prophylaxis: Heparin SQ BID Dispo: continued monitoring inpatient overnight, planning for discharge to inpatient U tomorrow (2) Hypotension: (3) Hypertension: (4) Fatigue: (5) Hemochromatosis: (6) Elevated LFTs: (7) Depression: (8) CKD (chronic kidney disease) stage 2, GFR 60-89 ml/min: (9) BPH NOS w ur obs/LUTS: (10) CAD (coronary artery disease): (11) T2DM (type 2 diabetes mellitus): Admission and Anticipated Discharge Date Admission Date: October 18, 2022 Subjective Eval this morning, sleeping in bed, fatigued/tired, but conversive agreeable that divorce rough for him, difficulty dealing agreeable to inpatient psychiatry care when medically stable. endorses taking ativan and primidone but unsure of amount, "whatever left in the bottle". has been dealing with anxiety/depression symptoms long standing hx chiari malformation in the past s/p neurosurgery, follows with Dr Crum. Has been on primidone for tremor, about what it typically is at, had not decreased to the 25mg per prior recs given reports of fatigue. Noted primidone adverse reaction for SI, given long standing issue may be beneficial to consider something different. Has not yet been seen by psychiatry. Never tried remeron in the past, does have hx PTSD (did not go into details, but reported childhood trauma). No fever/chills, no chest pain (but of note did report L sided chest pain he had yesterday, hx CAD, s/p stent x 2 in 2019, follows with cardiology). Denies shortness of breath/nausea/vomiting. Not much of an appetite/poor PO intake. Denied alcohol/tobacco use (although on admit admitted to taking alcohol with his medications for OD). Does endorse has used edibles w/ marijuana though. Asked if wanted to update anyone today, he states he is going to call his son but does not need any calls made at this time. Of note, does not have his glasses -- blue frame -- not in room but had when he came in. Asked nursing to call ER to see if able to track down/otherwise will need reported. Questions/concerns addressed. 1:1 remains at bedside for safety. Will check overnight pulse ox study/ambulatory in AM given concerns by psych but anticipate being able to transfer to inpatient unit tomorrow. Review of Systems Review of Systems: All systems reviewed & are unremarkable except as noted in HPI & below Physical Exam Physical Exam: General: WD male laying on his side in bed, NAD, withdrawn, flat affect, short answers to questions, but cooperative with questions/care HEENT: pupils equal in size, trachea midline without deviation, mm slightly dry Resp: CTAB, no w/c, on room air 97% CV: GI: +BS, nontender, no guarding/rigidity : no rajan MSK/Neuro: no focal deficits, no slurred speech/facial droop, follows commands, strength equal b/l, sensation intact, fine resting tremor b/l hands noted Psych: alert, oriented to person/knows in hospital/remembers taking medications in attempted suicide, endorses depression regarding divorce but also longstanding depression Results & Data Results & Data ([facility]) Vital Signs (Past 12 Hours) Vital Signs Temp Pulse Pulse Resp BP Pulse Ox O2 Del Method 10/19/22 07:50 36.4 C L 62 18 139/85 95 Room Air 10/19/22 07:20 58 L 10/19/22 04:07 36.5 C 69 20 110/65 95 Room Air 10/18/22 22:20 90 10/18/22 23:01 Room Air Laboratory Results 10/19/22 10/19/22 10/19/22 Range/Units 12:56 11:51 11:50 WBC (4.8-10.8) K/ul RBC (4.63-6.08) M/uL Hgb (14.0-18.0) g/dl Hct (40.1-51.0) % MCV (80.0-100.0) fL MCH (25.0-34.0) pg MCHC (32.0-36.0) g/dL RDW Std Deviation (36.4-46.3) fL RDW Coeff of Heather (11.5-14.5) % Plt Count (130-400) K/uL MPV (9.4-12.4) fL Immature Gran % (Auto) % Neut % (Auto) % Lymph % (Auto) % [place] % (Auto) % Eos % (Auto) % Baso % (Auto) % Neut # (Auto) (1.4-6.5) K/uL Lymph # (Auto) (1.2-3.4) K/uL [place] # (Auto) (0.24-0.82) K/uL Eos # (Auto) (0-0.50) K/uL Baso # (Auto) (0-0.2) K/uL Immature Gran # (Auto) (0.00-0.02) K/uL VBG pH (7.36-7.41) VBG pCO2 (38-50) mmHg VBG pO2 mmHg VBG HCO3 mmol/L VBG O2 Saturation % VBG Base Excess mEq/L Sodium (136-145) mmol/L Potassium (3.5-5.1) mmol/L Chloride (98-107) mmol/L Carbon Dioxide (21-32) mmol/L Anion Gap (3-11) BUN (6-23) mg/dl Creatinine (0.6-1.4) mg/dl Est Cr Clr Drug Dosing ml/min Est GFR ( Amer) ml/min Est GFR (Non-Af Amer) ml/min BUN/Creatinine Ratio (10-20) Glucose (70-99(Fasting)) mg/dl POC Glucose (70-99) mg/dl Calcium (8.5-10.1) mg/dl Ammonia (18-72) umol/L Vitamin B1 Pending Cancelled Vitamin B12 > 1500 H (180-914) pg/ml Folate 10.13 (>5.38) ng/ml 10/19/22 10/19/22 10/19/22 Range/Units 11:50 11:41 07:48 WBC (4.8-10.8) K/ul RBC (4.63-6.08) M/uL Hgb (14.0-18.0) g/dl Hct (40.1-51.0) % MCV (80.0-100.0) fL MCH (25.0-34.0) pg MCHC (32.0-36.0) g/dL RDW Std Deviation (36.4-46.3) fL RDW Coeff of Heather (11.5-14.5) % Plt Count (130-400) K/uL MPV (9.4-12.4) fL Immature Gran % (Auto) % Neut % (Auto) % Lymph % (Auto) % [place] % (Auto) % Eos % (Auto) % Baso % (Auto) % Neut # (Auto) (1.4-6.5) K/uL Lymph # (Auto) (1.2-3.4) K/uL [place] # (Auto) (0.24-0.82) K/uL Eos # (Auto) (0-0.50) K/uL Baso # (Auto) (0-0.2) K/uL Immature Gran # (Auto) (0.00-0.02) K/uL VBG pH (7.36-7.41) VBG pCO2 (38-50) mmHg VBG pO2 mmHg VBG HCO3 mmol/L VBG O2 Saturation % VBG Base Excess mEq/L Sodium (136-145) mmol/L Potassium (3.5-5.1) mmol/L Chloride (98-107) mmol/L Carbon Dioxide (21-32) mmol/L Anion Gap (3-11) BUN (6-23) mg/dl Creatinine (0.6-1.4) mg/dl Est Cr Clr Drug Dosing ml/min Est GFR ( Amer) ml/min Est GFR (Non-Af Amer) ml/min BUN/Creatinine Ratio (10-20) Glucose (70-99(Fasting)) mg/dl POC Glucose 74 74 (70-99) mg/dl Calcium (8.5-10.1) mg/dl Ammonia 30.0 (18-72) umol/L Vitamin B1 Vitamin B12 (180-914) pg/ml Folate (>5.38) ng/ml 10/19/22 10/19/22 10/19/22 Range/Units 06:23 06:23 06:23 WBC 3.46 L (4.8-10.8) K/ul RBC 4.34 L (4.63-6.08) M/uL Hgb 14.6 (14.0-18.0) g/dl Hct 40.9 (40.1-51.0) % MCV 94.2 (80.0-100.0) fL MCH 33.6 (25.0-34.0) pg MCHC 35.7 (32.0-36.0) g/dL RDW Std Deviation 41.4 (36.4-46.3) fL RDW Coeff of Heather 11.8 (11.5-14.5) % Plt Count 136 (130-400) K/uL MPV 9.2 L (9.4-12.4) fL Immature Gran % (Auto) 0.3 % Neut % (Auto) 53.4 % Lymph % (Auto) 26.9 % [place] % (Auto) 13.6 % Eos % (Auto) 4.9 % Baso % (Auto) 0.9 % Neut # (Auto) 1.85 (1.4-6.5) K/uL Lymph # (Auto) 0.93 L (1.2-3.4) K/uL [place] # (Auto) 0.47 (0.24-0.82) K/uL Eos # (Auto) 0.17 (0-0.50) K/uL Baso # (Auto) 0.03 (0-0.2) K/uL Immature Gran # (Auto) 0.01 (0.00-0.02) K/uL VBG pH 7.38 (7.36-7.41) VBG pCO2 41 (38-50) mmHg VBG pO2 63 mmHg VBG HCO3 24 mmol/L VBG O2 Saturation 93.1 % VBG Base Excess -0.8 mEq/L Sodium 136 (136-145) mmol/L Potassium 3.8 (3.5-5.1) mmol/L Chloride 105 (98-107) mmol/L Carbon Dioxide 26 (21-32) mmol/L Anion Gap 5 (3-11) BUN 5 L (6-23) mg/dl Creatinine 0.81 (0.6-1.4) mg/dl Est Cr Clr Drug Dosing 117.1 ml/min Est GFR ( Amer) 118.4 ml/min Est GFR (Non-Af Amer) 102.2 ml/min BUN/Creatinine Ratio 6.2 L (10-20) Glucose 81 (70-99(Fasting)) mg/dl POC Glucose (70-99) mg/dl Calcium 8.8 (8.5-10.1) mg/dl Ammonia (18-72) umol/L Vitamin B1 Vitamin B12 (180-914) pg/ml Folate (>5.38) ng/ml 10/18/22 10/18/22 10/18/22 Range/Units 21:06 16:50 16:50 WBC (4.8-10.8) K/ul RBC (4.63-6.08) M/uL Hgb (14.0-18.0) g/dl Hct (40.1-51.0) % MCV (80.0-100.0) fL MCH (25.0-34.0) pg MCHC (32.0-36.0) g/dL RDW Std Deviation (36.4-46.3) fL RDW Coeff of Heather (11.5-14.5) % Plt Count (130-400) K/uL MPV (9.4-12.4) fL Immature Gran % (Auto) % Neut % (Auto) % Lymph % (Auto) % [place] % (Auto) % Eos % (Auto) % Baso % (Auto) % Neut # (Auto) (1.4-6.5) K/uL Lymph # (Auto) (1.2-3.4) K/uL [place] # (Auto) (0.24-0.82) K/uL Eos # (Auto) (0-0.50) K/uL Baso # (Auto) (0-0.2) K/uL Immature Gran # (Auto) (0.00-0.02) K/uL VBG pH 7.37 (7.36-7.41) VBG pCO2 44 (38-50) mmHg VBG pO2 39 mmHg VBG HCO3 25 mmol/L VBG O2 Saturation 69.4 % VBG Base Excess -0.2 mEq/L Sodium 137 (136-145) mmol/L Potassium 4.3 (3.5-5.1) mmol/L Chloride 107 (98-107) mmol/L Carbon Dioxide 26 (21-32) mmol/L Anion Gap 4 (3-11) BUN 4 L (6-23) mg/dl Creatinine 0.86 (0.6-1.4) mg/dl Est Cr Clr Drug Dosing 119.3 ml/min Est GFR ( Amer) 115.6 ml/min Est GFR (Non-Af Amer) 99.7 ml/min BUN/Creatinine Ratio 4.7 L (10-20) Glucose 85 (70-99(Fasting)) mg/dl POC Glucose 71 (70-99) mg/dl Calcium 8.4 L (8.5-10.1) mg/dl Ammonia (18-72) umol/L Vitamin B1 Vitamin B12 (180-914) pg/ml Folate (>5.38) ng/ml 10/18/22 10/18/22 10/18/22 Range/Units 16:49 16:31 16:06 WBC (4.8-10.8) K/ul RBC (4.63-6.08) M/uL Hgb (14.0-18.0) g/dl Hct (40.1-51.0) % MCV (80.0-100.0) fL MCH (25.0-34.0) pg MCHC (32.0-36.0) g/dL RDW Std Deviation (36.4-46.3) fL RDW Coeff of Heather (11.5-14.5) % Plt Count (130-400) K/uL MPV (9.4-12.4) fL Immature Gran % (Auto) % Neut % (Auto) % Lymph % (Auto) % [place] % (Auto) % Eos % (Auto) % Baso % (Auto) % Neut # (Auto) (1.4-6.5) K/uL Lymph # (Auto) (1.2-3.4) K/uL [place] # (Auto) (0.24-0.82) K/uL Eos # (Auto) (0-0.50) K/uL Baso # (Auto) (0-0.2) K/uL Immature Gran # (Auto) (0.00-0.02) K/uL VBG pH (7.36-7.41) VBG pCO2 (38-50) mmHg VBG pO2 mmHg VBG HCO3 mmol/L VBG O2 Saturation % VBG Base Excess mEq/L Sodium (136-145) mmol/L Potassium (3.5-5.1) mmol/L Chloride (98-107) mmol/L Carbon Dioxide (21-32) mmol/L Anion Gap (3-11) BUN (6-23) mg/dl Creatinine (0.6-1.4) mg/dl Est Cr Clr Drug Dosing ml/min Est GFR ( Amer) ml/min Est GFR (Non-Af Amer) ml/min BUN/Creatinine Ratio (10-20) Glucose (70-99(Fasting)) mg/dl POC Glucose 80 66 L* 68 L* (70-99) mg/dl Calcium (8.5-10.1) mg/dl Ammonia (18-72) umol/L Vitamin B1 Vitamin B12 (180-914) pg/ml Folate (>5.38) ng/ml 10/18/22 Range/Units 16:05 WBC (4.8-10.8) K/ul RBC (4.63-6.08) M/uL Hgb (14.0-18.0) g/dl Hct (40.1-51.0) % MCV (80.0-100.0) fL MCH (25.0-34.0) pg MCHC (32.0-36.0) g/dL RDW Std Deviation (36.4-46.3) fL RDW Coeff of Heather (11.5-14.5) % Plt Count (130-400) K/uL MPV (9.4-12.4) fL Immature Gran % (Auto) % Neut % (Auto) % Lymph % (Auto) % [place] % (Auto) % Eos % (Auto) % Baso % (Auto) % Neut # (Auto) (1.4-6.5) K/uL Lymph # (Auto) (1.2-3.4) K/uL [place] # (Auto) (0.24-0.82) K/uL Eos # (Auto) (0-0.50) K/uL Baso # (Auto) (0-0.2) K/uL Immature Gran # (Auto) (0.00-0.02) K/uL VBG pH (7.36-7.41) VBG pCO2 (38-50) mmHg VBG pO2 mmHg VBG HCO3 mmol/L VBG O2 Saturation % VBG Base Excess mEq/L Sodium (136-145) mmol/L Potassium (3.5-5.1) mmol/L Chloride (98-107) mmol/L Carbon Dioxide (21-32) mmol/L Anion Gap (3-11) BUN (6-23) mg/dl Creatinine (0.6-1.4) mg/dl Est Cr Clr Drug Dosing ml/min Est GFR ( Amer) ml/min Est GFR (Non-Af Amer) ml/min BUN/Creatinine Ratio (10-20) Glucose (70-99(Fasting)) mg/dl POC Glucose 65 L* (70-99) mg/dl Calcium (8.5-10.1) mg/dl Ammonia (18-72) umol/L Vitamin B1 Vitamin B12 (180-914) pg/ml Folate (>5.38) ng/ml Diagnostic Findings Chest X-Ray 10/17/22 23:37 SINGLE VIEW CHEST CLINICAL HISTORY: Overdose. FINDINGS: An AP, portable, semierect chest radiograph is compared to study dated 09/14/2022. Correlation is made with chest CT dated 02/17/2021. The cardiomediastinal silhouette is top normal for projection. There are low lung volumes with bibasilar atelectasis. The lungs and pleural spaces are otherwise clear. No pneumothorax is seen. The bony thorax is grossly intact. IMPRESSION: No active disease in the chest. ACT 112: Negative or not required by law. Electronically signed by: Jose Hernandez M.D. 10/18/2022 7:[address] 10/18/22 06:16 CT OF THE HEAD WITHOUT CONTRAST CLINICAL HISTORY: Altered mental status. COMPARISON STUDY: Head CT September 14, 2022 and MRI of the brain July 09, 2020. CT DOSE: 614.27 mGy.cm TECHNIQUE: Helical axial images of the head were obtained without IV contrast. Automated exposure control was utilized for the study. A dose lowering technique was utilized adhering to the principles of ALARA. FINDINGS: No acute intracranial hemorrhage, midline shift or mass effect is present. The ventricular system is unremarkable. The basal cisterns are patent. No extra-axial collections are present. There are no findings to suggest acute dural sinus thrombosis or acute territorial infarct. No is no acute calvarial fracture. There are stable postoperative findings following suboccipital craniectomy. Mild mucosal thickening with a small air-fluid level within the left maxillary sinus is noted. Similar findings were shown on prior exam. IMPRESSION: No acute intracranial findings. ACT 112: Negative or not required by law. Electronically signed by: Pieter Villegas M.D. 10/18/2022 6:51 AM PG Care Time/CCT Total # of Minutes Spent Total Time Spent with Patient: Total time spent is greater than 50% in coordination of care (as documented) at patient's floor/unit and/or counseling patient: Coding Level of Care Code 70613 Subseq Obs Care Lvl 3 Diagnoses Intentional overdose T50.902A Hypotension I95.9 Hypertension I10 Fatigue R53.83 Hemochromatosis E83.119 Elevated LFTs R94.5 Depression F32.9 CKD (chronic kidney disease) stage 2, GFR 60-89 ml/min N18.2 BPH NOS w ur obs/LUTS N40.1 CAD (coronary artery disease) I25.110 Associated angina: with unstable angina Coronary Disease-Associated Artery/Lesion type: [place] artery [place] vs. transplanted heart: [place] heart T2DM (type 2 diabetes mellitus) E11.9 (1) CAD (coronary artery disease) Associated angina: with unstable angina Coronary Disease-Associated Artery/Lesion type: [place] artery [place] vs. transplanted heart: [place] heart Qualified Code(s): I25.110 - Atherosclerotic heart disease of [place] coronary artery with unstable angina pectoris
[2022-10-19] MEDS: LANTUS PER UNIT CHARGE SQ SCH (08:09)
[2022-10-19] MEDS: INSULIN ASPART PER UNIT SC SCH (08:09)
[2022-10-19] MEDS: NALTREXONE HCL 50 MG TAB PO SCH (09:55)
[2022-10-19] MEDS: dilTIAZem HCL 120 MG CAPCR PO SCH (09:55)
[2022-10-19] MEDS: METOPROLOL SUCC 25MG EXT REL TAB PO SCH (09:55)
[2022-10-19] MEDS: HEPARIN SOD 5,000 UNIT/0.5 ML VIAL SQ SCH ×2 (09:56→20:19)
--- NOTE | 2022-10-19 12:16 | Communication Note ---
Date of Service: October 19, 2022 initial psych consult reviewed, interim progress reviewed. case discussed with hospitalist service. Unclear if primodine may have any contribution to de pressive symptoms/SI (symptoms predate and does have marked psychosocial stressor) but tremor mild and will continue to hold due to OD. Currently on Toprol XL for HTN which may help tremor, unclear what baseline is. Remains willing for inpatient care, reports no CPAP use for sleep apnea hx for 2 year, rec. ambulatory O2 sat as nears medical clearance.
[2022-10-19 12:48] LABS: Vitamin B12 > 1500 pg/ml (180-914)
[2022-10-19] MEDS ORDERED: THIAMINE HCL 100 MG in SYRINGE 9 ML IV STA (15:53)
[2022-10-19] MEDS: LACTULOSE SYRUP 20 GM/30 ML UDC PO SCH (16:41)
[2022-10-19] MEDS ORDERED: D5NSS + 20MEQ KCL 20 MEQ/1,000 ML BAG IV SCH (18:30)
[2022-10-19] MEDS: MAGNESIUM SULFATE / D5W 1 GM/100 ML BAG IV SCH ×2 (19:29→21:31)
[2022-10-19] MEDS: ASPIRIN 81 MG ECTAB PO SCH (20:20)
[2022-10-19] MEDS: ESCITALOPRAM OXALATE 10 MG TAB PO SCH (20:20)
[2022-10-19] MEDS: MULTIVITAMIN TAB PO SCH (20:21)
[2022-10-19] MEDS: lisinopril 10 MG TAB PO SCH (20:22)
[2022-10-19] MEDS: PANTOprazole 40 MG TAB PO SCH (20:23)
--- NOTE | 2022-10-20 05:59 | Electrocardiogram Report ---
Test Reason : Blood Pressure : / mmHG Vent. Rate : 064 BPM Atrial Rate : 064 BPM P-R Int : 204 ms QRS Dur : 080 ms QT Int : 456 ms P-R-T Axes : 004 -28 -15 degrees QTc Int : 470 ms Normal sinus rhythm Minimal voltage criteria for LVH, may be normal variant Cannot rule out Anterior infarct (cited on or before 18-OCT-2022) Abnormal ECG When compared with ECG of 18-OCT-2022 04:13, QT has shortened Confirmed by Bakari Lechuga ([id number]) on 10/20/2022 5:59:13 AM Referred By: REFERRED SELF Confirmed By:Bakari Lechuga
[2022-10-20 08:40] LABS: Hematocrit (blood only) 40.6 % (40.1-51.0); Hemoglobin 14.3 g/dl (14.0-18.0); Mean Corpuscular Hemoglobin 33.1 pg (25.0-34.0); Mean Corpuscular Hgb Conc 35.2 g/dL (32.0-36.0); Mean Platelet Volume 8.8 fL (9.4-12.4); Platelet Count 135 K/uL (130-400); RDW Coefficient of Variation 11.8 % (11.5-14.5); RDW Standard Deviation 40.8 fL (36.4-46.3); Red Blood Count 4.32 M/uL (4.63-6.08); White Blood Count 3.61 K/ul (4.8-10.8)
[2022-10-20] MEDS: NALTREXONE HCL 50 MG TAB PO SCH (08:45)
[2022-10-20] MEDS: METOPROLOL SUCC 25MG EXT REL TAB PO SCH (08:45)
[2022-10-20] MEDS: dilTIAZem HCL 120 MG CAPCR PO SCH (08:45)
[2022-10-20] MEDS: HEPARIN SOD 5,000 UNIT/0.5 ML VIAL SQ SCH (08:45)
[2022-10-20] MEDS: LACTULOSE SYRUP 20 GM/30 ML UDC PO SCH (08:45)
[2022-10-20] MEDS ORDERED: THIAMINE HCL 100 MG in SYRINGE 9 ML IV SCH (09:00)
[2022-10-20 09:05] LABS: BUN Creatinine Ratio 5.4 (10-20); Calcium 8.5 mg/dl (8.5-10.1); Creatinine Clr Calc Pharmacy 103.1 ml/min; Est GFR (African American) 110.4 ml/min; Est GFR (Non-African American) 95.3 ml/min; Magnesium 1.9 mg/dl (1.7-2.4); Potassium 3.7 mmol/L (3.5-5.1)
--- NOTE | 2022-10-20 13:52 | Hospitalist Progress Note ---
Date of Service October 20, 2022 Assessment & Plan (1) Intentional overdose: Plan: Intentional overdose. Given flumazenil/naloxone on admit, NSS, and Mag 1gm * Reported ingestion of Ativan/primidone/lorazepam around 8:30 PM on 10/17/2022 with alcohol level 181 on admission (although denies alcohol use). * Had been placed on 2L O2 given hx MAHAMED/spo2 81-88 on admission, currently 97% on RA - patient w/ sleep study 2020 which did NOT show sleep apnea. Will check overnight pulse ox tonight to see about any desaturations but suspect from respiratory depression from ingested medications * UDS -- +marijuana -- endorses edibles * Alcohol level 181 on admit * CT head negative for acute process but does note prior suboccipital craniectomy -- patient stated hx Chiari malformation * Evaluated AM 10/19, stable, 97% on RA. NSR/sinus jessenia on monitor * Of note, was in ER 09/14 for "transient" chest pain/anxiety/not eating or drinking in several days and sent PO keflex for possible UTI (cx negative) * Endorses long standing history of depression/PTSD, now worse w/ going through divorce with of 18 yrs * Psych consulted * 302 on chart * Agreeable to inpatient treatment and medically stable for transfer to [facility] at this time (2) Depression: Plan: MDD * He notes longstanding depression/PTSD (childhood trauma, not discussed in detail) * Typically on Lexapro 10mg daily, lamotrigine 25mg, gabapentin 300mg TID, hydroxyzine 25mg HS * Of note, on primidone 50mg daily for essential tremor (checking ammonia given hx cirrhosis to r/o asterixis rather than tremor) -- minimal tremor noted on exam. This has adverse side effect for INCREASED SUICIDAL IDEATION * --> Primidone has not been ordered on admit, had OD with such as above. Would not resume at d/c. * -Is on Toprol XL, if needed touch base w/ neuro for other recs but appears stable on exam at present * Psychiatry consulted, 302 on chart --> possible d/c and admit to inpatient psychiatry for ongoing treatment tomorrow * Suicide precautions, 1:1 for patient safety for intention OD as above (3) Hypertension: Plan: * BP hypotensive on admission, elevated in evening after admit and lisinopril resumed evening HS 111/21 * Metoprolol succinate 25mg, diltiazem resumed this morning for elevated BP, cu rrently stable at 142/81 * He does report history of orthostatic hypotension/lightheaded/dizzy --> check orthostatics/hold diuretics if + and order fluids. Not overly dehydrated on exam but not w/ much PO intake reported * BP fine but noted bradycardia overnight, given this was during sleep, I am not overly concerned, when awake/alert/talking pulse >50 and asymptomatic (4) CKD (chronic kidney disease) stage 2, GFR 60-89 ml/min: Plan: * Hx of, Cr normal on admit. Did get IVF, lisinopril resumed last evening * Cr 0.81 on am labs, does not appear overly dehydrated * Monitor on AM labs (5) CAD (coronary artery disease): Plan: CAD/HLD * Statin temporarily held in the setting of ingestion/alcohol washout, typically on atorvastatin 20mg HS (given hx CAD, ?increasing this on outpatient basis) * LFTs wnl -- of note, patient w/ history of cirrhosis, had been on lactulose outpatient, not on med list however patient reported he has been taking this at home and will order daily * patient reports prior stenting in 2019 with 2 stents * Follows with [facility] * Cath 01/14/2022 showing widely patent circumflex stent, widely patent mid RCA stent, 30 to 40% mid LAD stenosis, 20 to 30% proximal RCA stenosis without any evidence of high-grade CAD requiring reintervention. * ECHO w/ mild concentric LVH, normal EF, normal wall motion. mild-mod MR. RVSP normal * --> Chest pain at that time was suspected due to vasospasm and was discharged to continue ASA daily, which has been continued * No chest pain reported however did have episode of chest pain on admit per pat ient * Trop negative w/ high sensitivity troponin, has remained NSR/sinus jessenia on telemetry -- continue to monitor * EKG w/ CP * Continues on metoprolol, lisinopril -- resumed last evening for elevated BP as was hypotensive on admit, received IVF (6) T2DM (type 2 diabetes mellitus): Plan: * A1c 5.2 as outpatient, excellent control on dulaglutide weekly/metformin BID * BSG AC/HS * Discontinued lantus BID given BSGs low normals -- holding outpatient meds * Continue BSG checks AC/HS, sliding scale while inpatient (7) MAHAMED (obstructive sleep apnea): Plan: * History of such, diagnosed with mild MAHAMED about 6 years ago, 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 Per notes from Dr Resendez, patient diagnosed with cirrhosis in 2018 during an episode of infective endocarditis w/ CT done during that time showing fatty liver. Fibroscan done in follow-up that showed advanced fibrosi s. Liver biopsy w/ steatohepatitis and advanced bridging fibrosis. EGD 04/17 with small esophageal varices but to date his cirrhosis not complicated by variceal hemorrhage, hepatic encephalopathy or ascites * Reports does take lactulose daily -- hx elevated ammonia * check ammonia given tremor * Recommend having patient follow up with Dr Atkinson locally if able to arrange outpatient EGD for surveillance * Check B12/folate given +alcohol on admit, although noted patient on B12 * Consider empiric thiamine Plan Patient is medically stable for discharge from medical service and transfer to [facility]. Plan d/w Dr. Harrington and also with Dr. Rosario. Admission and Anticipated Discharge Date Admission Date: October 18, 2022 Subjective Patient was seen on daily rounds this morning. He remains quite depressed with flat affect, admits that he is interested in inpatient mental health treatment for his severe depression and suicide attempt by intentional OD. He notes that the event that precipitated his SI was his serving him with a PFA and telling him she wanted a divorce. He is currently under treatment with a counselor as an outpatient and admits this is the first time he's ever attempted self harm. Denies cp, dyspnea, n/v/d, f/c, headache, palpitations, lightheadedness. Review of Systems Review of Systems: All systems reviewed and are unremarkable except as noted in HPI and below. Denies fever, chills, fatigue, headache, nasal congestion, sore throat, cough, chest pain, shortness of breath, palpitations, orthopnea, PND, abdominal pain, n/v/d, constipation, dysuria, hematuria, frequency, back pain, joint pain or swelling, easy bruising or bleeding, skin lesions or rashes. Physical Exam Physical Exam: GENERAL: 52 yo Well-developed, well-nourished WM. NAD LUNGS: Clear to auscultation bilaterally. No W/R/R. CARDIOVASCULAR: Regular rate and rhythm. ABDOMEN: Soft, non-tender and non-distended. BS normoactive x 4 quad. EXTREMITIES: No edema. Non-tender. Peripheral pulses +2/4. NEUROLOGIC: A&O x3. PSYCHIATRIC: Cooperative. Appropriate mood and affect. SKIN: Warm, dry, intact. No rashes or lesions. Results & Data Results & Data ([facility]) Vital Signs (Past 12 Hours) Vital Signs Temp Pulse Pulse Pulse Resp BP Pulse Ox 10/20/22 11:19 36.7 C 58 L 122/72 96 10/20/22 07:40 50 L 10/20/22 05:10 36.3 C L 53 L 20 116/71 96 10/20/22 04:18 48 L Pulse Ox O2 Del Method O2 Del Method 10/20/22 11:19 Room Air 10/20/22 07:40 10/20/22 05:10 Room Air 10/20/22 04:18 95 Room Air Laboratory Results 10/20/22 08:15 10/20/22 08:15 PG Care Time/CCT Total # of Minutes Spent Total Time Spent with Patient: Total time spent is greater than 50% in coordination of care (as documented) at patient's floor/unit and/or counseling patient: Coding Level of Care Code 26590 Subseq Obs Care Lvl 2 Diagnoses Intentional overdose T50.902A Depression F32.9 Hypertension I10 CKD (chronic kidney disease) stage 2, GFR 60-89 ml/min N18.2 CAD (coronary artery disease) I25.110 Coronary Disease-Associated Artery/Lesion type: [place] artery [place] vs. transplanted heart: [place] heart Associated angina: with unstable angina T2DM (type 2 diabetes mellitus) E11.9 MAHAMED (obstructive sleep apnea) G47.33 RUSSELL (nonalcoholic steatohepatitis) K75.81 (1) CAD (coronary artery disease) Coronary Disease-Associated Artery/Lesion type: [place] artery [place] vs. transplanted heart: [place] heart Associated angina: with unstable angina Qualified Code(s): I25.110 - Atherosclerotic heart disease of [place] coronary artery with unstable angina pectoris
--- NOTE | 2022-10-20 16:09 | Discharge Summary ---
Date of Service October 20, 2022 Admission HPI Per Admitting Provider Paddy is a 52-year-old male with past medical history of depression, hypertension, Chiari malformation type I, MAHAMED, CAD s/p PCI with stent placement, RUSSELL, essential tremor, BPH with LUTS, night terrors, type II DM, CKD, PTSD, and depression who presented to the emergency department at 11 PM last night after an intentional Ativan overdose. Paddy is seen at the bedside, signout received by ER physician. Patient had presented around 11 PM prior evening following an intentional overdose with Ativan, primidone, and lorazepam around 8:30 PM on 10/17/2022. Patient reports that he has a history of depression and 1 past episode of feeling similarly low for which she sees a outpatient therapist. continues lexapro daily, only took 1 last night. He reports that he has been going through difficult divorce for 2-3 months, reports nothing in particular changed in the last week but things just seem like they were exploding. He reports he did not feel well, at home. He denies that his intention was to end his life by taking the overdose, but does not verbalize what his intention was. At bedside denies current SI/HI, but endorses depression and a feeling of not being welcome in his life. He reports he did not take any other medications last night other than the naltrexone/primidone/lorazepam, approximately a small handful but he is not sure exactly how many. He was found after his son requested a well check from EMS after Paddy based on her Facebook he is going to take Ativan around the divorce, unknown amount of ingestion but patient did have a prescription for 30 tablets of Ativan filled at the end of August. EKG on admission: Sinus rhythm first-degree AV block, NH 210, QTc 507 nonspecific T wave abnormality repeat EKG 10/18/2022: QTC 470, NSR, NH 204 No leukocytosis Hemoglobin 16.0 Sodium normal, potassium normal Creatinine less than 1 at baseline, 0.88 on admission POC glucose normal overnight UA uninfected appearing U tox positive for marijuana, otherwise clear Ethyl alcohol 181 on admission CThead: No acute findings CXR: No acute findings Reports he is not sure his medications, notes that he has had many medications and that he is followed by [facility] and the list can be gotten from them for reconciliation. He is not sure the last time he took his medications, did not take them yesterday. Does have a cardiac history. At time of bedside assessment he endorses feeling sleepy and tired, but denies fever/chills/syncope/presyncope/lightheadedness/dizziness/shortness of breath/difficulty breathing/chest pain/chest pressure/nausea/vomiting/diarrhea/abdominal pain. Former tobacco use Intermittent marijuana use Social alcohol use, did drink alcohol with his ingestion yesterday CODE STATUS: UFull Principal Diagnosis 1. Intentional OD 2. MDD 3. Bradycardia Discharge Exam GENERAL: 52 yo Well-developed, well-nourished WM. NAD LUNGS: Clear to auscultation bilaterally. No W/R/R. CARDIOVASCULAR: Regular rate and rhythm. ABDOMEN: Soft, non-tender and non-distended. BS normoactive x 4 quad. EXTREMITIES: No edema. Non-tender. Peripheral pulses +2/4. NEUROLOGIC: A&O x3. PSYCHIATRIC: Cooperative. Appropriate mood and affect. SKIN: Warm, dry, intact. No rashes or lesions. Discharge Data Allergies Allergy/AdvReac Type Severity Reaction Status Date / Time mushroom Allergy Severe Anaphylaxis, Verified 09/02/22 13:40 hives doxycycline Allergy Intermediate Abnormal Verified 09/02/22 13:40 CPK levels prazosin AdvReac Severe Syncope Verified 09/02/22 13:40 daptomycin AdvReac Intermediate Rhabdomyoly Verified 09/02/22 13:40 sis mirtazapine AdvReac Intermediate Diffuse Verified 09/02/22 13:40 itching Consultations 10/18/22 09:17 ED Decision to Admit Stat 10/18/22 13:11 Consult Psychiatry Routine Ordered Studies Chest X-Ray 10/17/22 23:37 SINGLE VIEW CHEST CLINICAL HISTORY: Overdose. FINDINGS: An AP, portable, semierect chest radiograph is compared to study dated 09/14/2022. Correlation is made with chest CT dated 02/17/2021. The cardiomediastinal silhouette is top normal for projection. There are low lung volumes with bibasilar atelectasis. The lungs and pleural spaces are otherwise clear. No pneumothorax is seen. The bony thorax is grossly intact. IMPRESSION: No active disease in the chest. ACT 112: Negative or not required by law. Electronically signed by: Jose Hernandez M.D. 10/18/2022 7:[address] 10/18/22 06:16 CT OF THE HEAD WITHOUT CONTRAST CLINICAL HISTORY: Altered mental status. COMPARISON STUDY: Head CT September 14, 2022 and MRI of the brain July 09, 2020. CT DOSE: 614.27 mGy.cm TECHNIQUE: Helical axial images of the head were obtained without IV contrast. Automated exposure control was utilized for the study. A dose lowering technique was utilized adhering to the principles of ALARA. FINDINGS: No acute intracranial hemorrhage, midline shift or mass effect is present. The ventricular system is unremarkable. The basal cisterns are patent. No extra-axial collections are present. There are no findings to suggest acute dural sinus thrombosis or acute territorial infarct. No is no acute calvarial fracture. There are stable postoperative findings following suboccipital craniec princess. Mild mucosal thickening with a small air-fluid level within the left maxillary sinus is noted. Similar findings were shown on prior exam. IMPRESSION: No acute intracranial findings. ACT 112: Negative or not required by law. Electronically signed by: Pieter Villegas M.D. 10/18/2022 6:51 AM Hospital Course (1) Intentional overdose: Intentional overdose. Given flumazenil/naloxone on admit, NSS, and Mag 1gm * Reported ingestion of Ativan/primidone/lorazepam around 8:30 PM on 10/17/2022 with alcohol level 181 on admission (although denies alcohol use). * Had been placed on 2L O2 given hx MAHAMED/spo2 81-88 on admission, currently 97% on RA - patient w/ sleep study 2020 which did NOT show sleep apnea. Will check overnight pulse ox tonight to see about any desaturations but suspect from respiratory depression from ingested medications * UDS -- +marijuana -- endorses edibles * Alcohol level 181 on admit * CT head negative for acute process but does note prior suboccipital craniectomy -- patient stated hx Chiari malformation * Evaluated AM 10/19, stable, 97% on RA. NSR/sinus jessenia on monitor * Of note, was in ER 09/14 for "transient" chest pain/anxiety/not eating or drinking in several days and sent PO keflex for possible UTI (cx negative) * Endorses long standing history of depression/PTSD, now worse w/ going through divorce with of 18 yrs * Psych consulted * 302 on chart * Agreeable to inpatient treatment and medically stable for transfer to U at this time (2) Depression: MDD * He notes longstanding depression/PTSD (childhood trauma, not discussed in detail) * Typically on Lexapro 10mg daily, lamotrigine 25mg, gabapentin 300mg TID, hydroxyzine 25mg HS * Of note, on primidone 50mg daily for essential tremor (checking ammonia given hx cirrhosis to r/o asterixis rather than tremor) -- minimal tremor noted on exam. This has adverse side effect for INCREASED SUICIDAL IDEATION * --> Primidone has not been ordered on admit, had OD with such as above. Would not resume at d/c. * -Is on Toprol XL, if needed touch base w/ neuro for other recs but appears stable on exam at present * Psychiatry consulted, 302 on chart --> possible d/c and admit to inpatient psychiatry for ongoing treatment tomorrow * Suicide precautions, 1:1 for patient safety for intention OD as above (3) Hypertension: * BP hypotensive on admission, elevated in evening after admit and lisinopril resumed evening HS 111/21 * Metoprolol succinate 25mg, diltiazem resumed this morning for elevated BP, currently stable at 142/81 * He does report history of orthostatic hypotension/lightheaded/dizzy --> check orthostatics/hold diuretics if + and order fluids. Not overly dehydrated on exam but not w/ much PO intake reported * BP fine but noted bradycardia overnight, given this was during sleep, I am not overly concerned, when awake/alert/talking pulse >50 and asymptomatic (4) CKD (chronic kidney disease) stage 2, GFR 60-89 ml/min: * Hx of, Cr normal on admit. Did get IVF, lisinopril resumed last evening * Cr 0.81 on am labs, does not appear overly dehydrated * Monitor on AM labs (5) CAD (coronary artery disease): CAD/HLD * Statin temporarily held in the setting of ingestion/alcohol washout, typically on atorvastatin 20mg HS (given hx CAD, ?increasing this on outpatient basis) * LFTs wnl -- of note, patient w/ history of cirrhosis, had been on lactulose outpatient, not on med list however patient reported he has been taking this at home and will order daily * patient reports prior stenting in 2019 with 2 stents * Follows with [facility] * Cath 01/14/2022 showing widely patent circumflex stent, widely patent mid RCA stent, 30 to 40% mid LAD stenosis, 20 to 30% proximal RCA stenosis without any evidence of high-grade CAD requiring reintervention. * ECHO w/ mild concentric LVH, normal EF, normal wall motion. mild-mod MR. RVSP normal * --> Chest pain at that time was suspected due to vasospasm and was discharged to continue ASA daily, which has been continued * No chest pain reported however did have episode of chest pain on admit per patient * Trop negative w/ high sensitivity troponin, has remained NSR/sinus jessenia on telemetry -- continue to monitor * EKG w/ CP * Continues on metoprolol, lisinopril -- resumed last evening for elevated BP as was hypotensive on admit, received IVF * Given had bradycardia overnight (even though asymptomatic), will dc Metoprolol and continue Diltiazem as he takes this for esophageal spasms. This was d/w cardiology, advise outpatient f/u. (6) T2DM (type 2 diabetes mellitus): * A1c 5.2 as outpatient, excellent control on dulaglutide weekly/metformin BID * BSG AC/HS * Discontinued lantus BID given BSGs low normals -- holding outpatient meds * Continue BSG checks AC/HS, sliding scale while inpatient (7) MAHAMED (obstructive sleep apnea): * History of such, diagnosed with mild MAHAMED about 6 years ago, had dream enactment/REM behavior disorder and sleep maintenance insomnia * Per notes-- had been doing well on clonazepam 0.5mg but was d/c due to cirrhosis * Sleep study July notes --> patient w/ repeat in-lab sleep study 2020 without evidence for sleep apnea or nocturnal hypoxemia * Suspect drop in O2 sats on admit from OD from benzodiazepine w/ Ativan * Has remained stable on RA * Overnight pulse ox noted a 6 sec total accumulation of time w/ pulse ox <89% - not clinically relevant, doesn't require O2 or NIPPV device (8) RUSSELL (nonalcoholic steatohepatitis): * Follows with [facility], hx cirrhosis/RUSSELL, also hx hemochromatosis w/ hgb 16 on admit. Per notes from Dr Resendez, patient diagnosed with cirrhosis in 2019 during an episode of infective endocarditis w/ CT done during that time showing fatty liver. Fibroscan done in follow-up that showed advanced fibrosis. Liver biopsy w/ steatohepatitis and advanced bridging fibrosis. EGD 04/17 with small esophageal varices but to date his cirrhosis not complicated by variceal hemorrhage, hepatic encephalopathy or ascites * Reports does take lactulose daily -- hx elevated ammonia * check ammonia given tremor * Recommend having patient follow up with Dr Atkinson locally if able to arrange outpatient EGD for surveillance * Check B12/folate given +alcohol on admit, although noted patient on B12 * Consider empiric thiamine Plan Patient is medically stable for discharge from medical service and transfer to [facility]. Plan d/w Dr. Harrington and also with Dr. Rosario. Total Time Total Time Spent Total Time Spent (In Minutes): <30 minutes Discharge Plan Discharge Items Patient Disposition: Transfer Behavioral Health Fac Reason For Visit: OVERDOSE (INTENTIONAL) Discharge Diagnosis: intentional OD Activity: Resume your previous activity Non-emergency contact: Primary Care Provider and Psychiatrist Call non-emergency contact if: you have any medication questions Follow-up/Referrals: Chicho Palomares MD [Primary Care Provider] - Diet: Carb Consistent or DM2 Addtl Attending Provider Instructions: You were hospitalized due to intentional overdose. It is recommended that you be transferred to the Behavioral Health Unit for continued treatment for your depression. Of note, your heart rates have been low, given how low they are, although you are not having symptoms, it is recommended that you stop taking Metoprolol. This was discussed with your foxing cutting machine operator. It is advise that you follow up with your foxing cutting machine operator as scheduled. Follow up with your primary care provider within 1 week of discharge from the hospital. Pending Studies at Discharge: No Stand-Alone Forms: [facility] Medications and DC Order Prescriptions: New lactulose 20 gram/30 mL Solution 20 g PO DAILY Qty: 900 0RF Continued atorvastatin 20 mg tablet 20 mg PO HS Qty: 90 3RF (DME) OneTouch Verio test strips Strip See Rx Instructions .ROUTE .MEDSUPPLY Qty: 300 1RF Rx Instructions: test TID (DME) lancets [Onetouch Delica Safety Lancet] 30 gauge misc See Rx Instructions .Route Qty: 300 1RF Rx Instructions: test BD TID Trulicity 0.75 mg/0.5 mL pen injector 0.75 mg subcut ONCE 30 Days Qty: 6 3RF Rx Instructions: Inject once a week on the same day each week. lisinopril 10 mg tablet 10 mg PO HS Qty: 90 3RF hydroxyzine pamoate [Vistaril] 25 mg capsule 25 mg PO HS diltiazem HCl 120 mg capsule,extended release 24hr 120 mg PO DAILY metformin 500 mg tablet 1,000 mg PO BID Rx Instructions: take with food. multivitamin [Daily Multi-Vitamin] Tablet 1 tab PO HS nitroglycerin [Nitrostat] 0.4 mg Tablet, Sublingual 0.4 mg Sublingual UD PRN (Reason: CHEST PAINS) aspirin 81 mg Tablet,Delayed Release (Dr/Ec) 81 mg PO HS Qty: 0 0RF vitamin B complex Tablet 1 tab PO HS pantoprazole [Protonix] 40 mg tablet,delayed release (DR/EC) 40 mg PO HS naltrexone 50 mg Tablet 50 mg PO DAILY lorazepam 1 mg Tablet 1 mg PO DAILY PRN (Reason: Unknown) gabapentin 400 mg capsule 300 mg PO TID escitalopram oxalate 20 mg tablet 20 mg HS lamotrigine 25 mg tablet 50 mg PO DAILY acetaminophen [Tylenol Extra Strength] 500 mg Tablet 500 - 1,000 mg PO DIRECTED PRN (Reason: Pain) Discontinued metoprolol succinate 25 mg tablet extended release 24 hr 25 mg PO HS Qty: 90 3RF primidone [Mysoline] 50 mg tablet 50 mg PO DAILY PRN (Reason: tremor) Discharge Orders: Discharge Order (Routine); Ordered 10/20/22 Ordered By: Magda Swann Admission Data Admit Date/Time: 10/18/22 11:10 Attending Provider: Keo Harrington Admit Provider: Raphael Jordan Primary Care Provider: Chicho Palomares Other Providers: Raphael Jordan ; Sahara Purcell ; Abigail Rosario ; Deonna Brice Coding Level of Care Code 97576 OBS Care - Discharge Diagnoses Intentional overdose T50.902A Depression F32.9 Hypertension I10 CKD (chronic kidney disease) stage 2, GFR 60-89 ml/min N18.2 CAD (coronary artery disease) I25.110 Coronary Disease-Associated Artery/Lesion type: mohegan artery [place] vs. transplanted heart: mohegan heart Associated angina: with unstable angina T2DM (type 2 diabetes mellitus) E11.9 MAHAMED (obstructive sleep apnea) G47.33 RUSSELL (nonalcoholic steatohepatitis) K75.81
[2022-10-21 19:36] LABS: Marijuana Quant, GCMS Urine 465 ng/mL (<5)
== END 2022-10-20 16:58 ==
LOC: EDINP 23:26 → ED 23:26 → SUATTDRO 10-18 11:10 → 2W 10-18 15:00

== ENCOUNTER 2022-10-20 13:41 | Inpatient (IN) ==
[2022-10-20] MEDS ORDERED: ACETAMINOPHEN 325 MG TAB PO PRN (18:12)
[2022-10-20] MEDS ORDERED: BISMUTH SUBSALICYLATE LIQD 236 ML PO PRN (18:12)
[2022-10-20] MEDS ORDERED: MAGNESIUM HYDROXIDE SUSP 30 ML UDC PO PRN (18:12)
[2022-10-20] MEDS ORDERED: hydrOXYzine HCl 25 MG TAB PO PRN ×2 (18:12)
[2022-10-20] MEDS ORDERED: ALUMINUM/MAGNESIUM SUSP 30 ML UDC PO PRN (18:12)
[2022-10-20] MEDS ORDERED: SODIUM CHLORIDE 0.65% NA SOLN 45 ML (OCEAN) PRN (18:12)
[2022-10-20] MEDS ORDERED: NITROGLYCERIN SL 0.4 MG/TAB TAB SL PRN (18:41)
[2022-10-20] MEDS: lisinopril 10 MG TAB PO SCH (20:15)
[2022-10-20] MEDS: PANTOprazole 40 MG TAB PO SCH (20:15)
[2022-10-20] MEDS: MULTIVITAMIN TAB PO SCH (20:15)
[2022-10-20] MEDS: ASPIRIN 81 MG ECTAB PO SCH (20:16)
[2022-10-20] MEDS: ATORVASTATIN 20 MG TAB PO SCH (20:16)
[2022-10-20] MEDS: metFORMIN HCL 500 MG TAB PO SCH (20:16)
[2022-10-20] MEDS: ESCITALOPRAM OXALATE 20 MG TAB PO SCH (20:16)
[2022-10-20] MEDS: NALTREXONE HCL 50 MG TAB PO SCH (20:16)
[2022-10-20] MEDS: GABAPENTIN 300 MG CAP PO SCH (20:16)
[2022-10-20] MEDS ORDERED: NON-FORMULARY MEDICATION (Multivitamin [Daily Multi-Vitamin] tablet) PO SCH (22:00)
[2022-10-20] MEDS ORDERED: dilTIAZem HCL 120 MG CAPCR PO SCH (22:00)
[2022-10-21] MEDS: GABAPENTIN 300 MG CAP PO SCH ×3 (08:22→21:08)
[2022-10-21] MEDS: LACTULOSE SYRUP 20 GM/30 ML UDC PO SCH (08:23)
[2022-10-21] MEDS: metFORMIN HCL 500 MG TAB PO SCH ×2 (08:23→17:21)
[2022-10-21] MEDS ORDERED: lamoTRIgine 25 MG TAB PO SCH (09:00)
--- NOTE | 2022-10-21 12:50 | History & Physical ---
Date of Service October 21, 2022 Impression / Recommendations Impression Paddy is a 52 yo male with a history of type II DM, RUSSELL, alcohol misuse, Chiaria malformation, recurrent depression with SI presents following an intentional OD as a suicidal gesture following an argument with his who has since sought a PFA. (1) Depression: (2) Suicide attempt: (3) RUSSELL (nonalcoholic steatohepatitis): (4) T2DM (type 2 diabetes mellitus): Plan The patient was admitted to the [facility] ([facility]) on q15 min checks (behavioral with suicide precautions) for safety. The patient will participate in group, recreational, and milieu therapies and will be offered additional individual and family sessions as clinically appropriate. Inventory Assets Strengths: therapy minded, intelligent Needs: improving coping skills, legal representation Suicide Risk Level Suicide Risk Level: Moderate (q15 min suicide checks) Risk Factors Assessment Male: Yes : Yes Do You Have Access To A Gun?: No Health Problems: Yes Mental Health Diagnoses: Yes Substance Use Disorders: Yes Previous Attempt: Yes Previous Psychiatric Hospitalization: Yes Protective Factors Assessment Stable Relationships: Yes (therapist and son) Psychiatric History Identifying Data PADDY OLIVERA is a 52-year-old M who was residing in [place], has a history of 1 prior admission to in 2019, and was admitted on 10/20/22 17:08 on a 201 voluntary commitment s/p suicide attempt. The patient was admitted to the medical floor on 10/18/22 and transferred upon medical clearance. Chief Complaint "It was a stupid thing to do, in the moment I wanted to get back at her". History of Present Illness Patient reports that he deals with chronic medical issues and has been stressed but "holding my own with therapy" until 2 months ago. 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 He admitted to his that he relapsed (having quit alcohol for 18 months "totally on my own.") and she saw this an an opportunity to ask for a divorce. He has been residing in the home but it has been tense and during an argument he ended up sending some texts to his son "that I now regret" and taking an unknown amount of Ativan and primodine on 10/17/22. 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 His sleep has been disrupted and he doesn't feel like "doing much of anything" and is overwhelmed by the PFA he was served with by as can't return home. He does have a son from a previous relationship that lives in [place] as a support. He hasn't been able to work for 2 years due to combination of health issues and change in [employer] business due to COVID. He was noncompliant with many of his medications. Past Psychiatric History Current Psychiatric Diagnosis: MDD Outpatient Services: [facility]--Tina Victor for therapy; patient had seen Dr. Walter but transferred to PCP Previous Psych Admissions: 08/18--SI Do You Have Access To A Gun?: No History of Previous Suicide Attempt: Yes (Tylenol OD age 12) Past Medication Trials: duloxetine, doxepin, Ambien, trazodone, Wellbutrin, Zoloft. Lexapro, lorazepam. Vistaril. naltrexone. Allergies Allergy/AdvReac Type Severity Reaction Status Date / Time mushroom Allergy Severe Anaphylaxis, Verified 09/02/22 13:40 hives doxycycline Allergy Intermediate Abnormal Verified 09/02/22 13:40 CPK levels prazosin AdvReac Severe Syncope Verified 09/02/22 13:40 daptomycin AdvReac Intermediate Rhabdomyoly Verified 09/02/22 13:40 sis mirtazapine AdvReac Intermediate Diffuse Verified 09/02/22 13:40 itching Home Medications Medication Instructions Recorded Confirmed Type nitroglycerin 0.4 mg sublingual 0.4 mg sublingual UD PRN CHEST 10/04/18 10/20/22 History tablet (Nitrostat) PAINS aspirin 81 mg tablet,delayed 81 mg PO HS #0 tabs 08/27/20 10/20/22 Rx release multivitamin (Daily Multi-Vitamin 1 tab PO HS 09/19/20 10/20/22 History tablet) acetaminophen 500 mg tablet 500 - 1,000 mg PO DIRECTED PRN 06/19/21 10/20/22 History (Tylenol Extra Strength) Pain hydroxyzine pamoate 25 mg capsule 25 mg PO HS 08/05/21 10/20/22 History (Vistaril) vitamin B complex 1 tab PO HS 09/08/21 09/02/22 History metformin 500 mg tablet 1,000 mg PO BID 12/24/21 10/20/22 History atorvastatin 20 mg tablet 20 mg PO HS #90 tabs 01/05/22 10/20/22 Rx blood sugar diagnostic (LuisTouch #300 ea 03/30/22 09/02/22 Rx Verio test strips) lancets 30 gauge (Luistouch Delica #300 ea 03/30/22 09/02/22 Rx Safety Lancet) pantoprazole 40 mg tablet,delayed 40 mg PO HS 05/18/22 10/20/22 History release (Protonix) diltiazem HCl 120 mg 120 mg PO DAILY 07/14/22 10/20/22 History capsule,extended release 24 hr lisinopril 10 mg tablet 10 mg PO HS #90 tabs 08/17/22 10/20/22 Rx gabapentin 400 mg capsule 300 mg PO TID 10/18/22 10/20/22 History lorazepam 1 mg tablet 1 mg PO DAILY PRN Unknown 10/18/22 10/20/22 History naltrexone 50 mg tablet 50 mg PO DAILY 10/18/22 10/20/22 History dulaglutide 0.75 mg/0.5 mL 0.75 mg subcut CHILDERS@09 10/20/22 10/20/22 History subcutaneous pen injector (Trulicity) escitalopram oxalate 20 mg tablet 20 mg HS 10/20/22 10/20/22 History lactulose 20 gram/30 mL oral 20 g (30 mL) PO DAILY #900 mL 10/20/22 10/20/22 Rx solution lamotrigine 25 mg tablet 50 mg PO DAILY 10/20/22 10/20/22 History primidone 50 mg tablet 50 mg PO DAILY PRN tremors 10/20/22 10/20/22 History Family History Family History of: Other Mood Disorders Family Mental Health History Comment: Reports family history of alcohol use Alcohol History Hx of Alcohol Use Over the Past 12 Months: Yes (Relapsed for 3 weeks, last drink ~ 2 months ago) AUDIT Total Score: 19 Smoking Use Have You Smoked or Used Tobacco Products in the Last 30 Days: No tobacco type: cigarettes Smoking Status: Former smoker Substance History Hx of Prescription Med Misuse Over the Past 12 Months: Yes (intentional OD on prescribed meds) Hx of Over the Counter Med Misuse Over the Past 12 Months: No Hx of Inhalent Misuse Over the Past 12 Months: No Hx of Organic Substance Use Over the Past 12 Months: No Hx of Illegal Substances/Street Drug Use Over Past 12 Months: No Problems as a Result of Past Substance Use: Life out of Control Problems as a Result of Past Substance Use Comments: Sober from ETOH x 20months prior to relapse 2 months ago Personal History Living Arrangements: Home Highest Grade Completed: College Marital Status: Number Of Children: 1 Beliefs That Will Affect Care: None Current Legal Problems: Yes (PFA) Hx Traumatic Life Events: Yes (hx of childhood trauma) Patient History Medical History Anal irritation Reason for PRN lidocaine ointment Anxiety and depression Arthritis Lumbar/thoracic spine Atrial tachycardia Hx CAD (coronary artery disease) Stents x2 (2017) Mild non-obstructive CAD with widely patent stents per 12/2021 cardiac cath > chest pain suspected noncardiac, medical management recommended. CKD (chronic kidney disease) stage 2, GFR 60-89 ml/min Diabetes mellitus Fatty liver GERD (gastroesophageal reflux disease) controlled H/O esophageal spasm History of anemia History of Chiari malformation s/p decompression surgery (~2000) History of GI bleed History of rhabdomyolysis History of stomach ulcers Remote hx Hx of esophageal varices "Controlled" x years per pt Localized swelling, mass or lump of neck Left s/p head/neck ultrasound noting no sonographic abnormality ("blocked lymph node" per pt) Migraine Occular Myocardial Infarction 2017 x2 RUSSELL (nonalcoholic steatohepatitis) Obesity PTSD (post-traumatic stress disorder) Restless leg syndrome Tremor Essential tremors (R/L hands) Surgical History H/O knee surgery Right Hemorrhoid Hemorrhoid banding History of arthroscopy of left shoulder Left shoulder arthroscopy, RCR (02/13/21): LMA#5, atraumatic attempt x1 + PNB at [facility]. No issues per post-op anesthesia progress note. History of cardiac cath 2018 (stents x2) 2019 > no stents 12/2021 > no stents History of colonoscopy History of esophagogastroduodenoscopy (EGD) History of liver biopsy 2019 History of neurologic surgery Foramen magnum decompression for arnold chiari malformation History of tooth extraction Family History Grandfather Family history of esophageal cancer Mother Diabetes Myocardial infarction Hypertension Family history of diabetes mellitus Father Myocardial infarction Hypertension Grandfather (Maternal) Prostate cancer Family hx of colon cancer Brother Myocardial infarction Grandfather (Paternal) Myocardial infarction Grandmother (Paternal) Myocardial infarction Other Colon cancer No family history of adverse response to anesthesia Denies family history of Ovarian cancer Breast cancer Social History Smoking Status: Former smoker Tobacco Type: Cigarettes Age Started Using Tobacco: 17; Age Quit Using Tobacco: 44; packs per day: 1; Second Hand Exposure: No; Hx Alcohol Use: No Hx Substance Use: No Preferred Language: Icelandic Communication Ability: Effective Visual Impairment: No Limitations 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: Normal Commissions Coordinator Required: No Beliefs That Will Affect Care: None marital status: Current Living Situation: Spouse current occupational status: other current occupation: unemployed x 2 years b/c of "medical conditions" Feels Safe at Home: Yes Childhood Exposure to Second-Hand Smoke: Yes Dental Care, Regularly: Yes Physical Activity Frequency: Does not Exercise Seatbelt Use: always Sunscreen Use: Yes Assistive Devices: Glasses Review of Systems Review of Systems: All systems reviewed & are unremarkable except as noted in HPI & below Physical Exam Psychiatric: Orientation: alert and oriented x 3 Apperance: appropriately dressed and appropriately groomed Eye Contact: good eye contact Motor Behavior: no abnormal motor movements Speech: normal rate/rhythm/volume of speech Affect: + depressed affect Mood: + depressed mood Thought Process: goal directed thought process Thought Content: reality based without delusions Suicidal Thoughts: denies suicidal thoughts Homicidal Thoughts: denies homicidal thoughts Hallucinations: no auditory hallucinations and no visual hallucinations Cognition: attention grossly intact and language grossly intact Estimated Intelligence: consistent with education level Insight: + limited insight Judgement: + limited judgement Vital Signs (Past 24 Hours): Last Vital Signs Temp 36.7 C 10/21/22 06:52 Pulse 80 10/21/22 06:53 Resp 16 10/21/22 06:52 BP 91/60 L 10/21/22 06:53 Pulse Ox 98 10/20/22 18:41 O2 Del Method 10/20/22 18:41 Exam Statement: A physical exam was performed on the medical floor by Dr. Garcia and again by Magda Swann PA-C for the purposes of medical josenoah macario. I accept their physicals as correct and adequate for the purposes of the inpatient physical exam. Results & Data ([facility]) Laboratory Results Laboratory Results - last 24 hr 10/21/22 08:20 POC Glucose 81 see medical admission Current Inpatient Medications Current Inpatient Medications: Current Inpatient Medications Acetaminophen (Acetaminophen 325 Mg Tab) 650 mg PO Q4H PRN PRN Reason: Headache or Minor Fever Stop: 11/19/22 18:11 Al Hydrox/Mg Hydrox/Simethicone (Aluminum/Magnesium Susp 30 Ml Udc) 30 ml PO Q4H PRN PRN Reason: GI Upset Stop: 11/19/22 18:11 Aspirin (Aspirin 81 Mg Ectab) 81 mg PO HS [facility]ARA Stop: 11/19/22 21:59 Last Admin: 10/20/22 20:16 Dose: 81 mg Atorvastatin Calcium (Atorvastatin 20 Mg Tab) 20 mg PO HS SARA Stop: 11/19/22 21:59 Last Admin: 10/20/22 20:16 Dose: 20 mg Bismuth Subsalicylate (Bismuth Subsalicylate Liqd 236 Ml) 15 ml PO PRN PRN PRN Reason: Loose Stool Stop: 11/19/22 18:11 Diltiazem HCl (Diltiazem Hcl 120 Mg Capcr) 120 mg PO HS SARA Stop: 11/20/22 21:59 Escitalopram Oxalate (Escitalopram Oxalate 20 Mg Tab) 20 mg PO HS [facility]ARA Stop: 11/19/22 21:59 Last Admin: 10/20/22 20:16 Dose: 20 mg Gabapentin (Gabapentin 300 Mg Cap) 300 mg PO TID SARA Stop: 11/19/22 20:59 Last Admin: 10/21/22 08:22 Dose: 300 mg Hydroxyzine HCl (Hydroxyzine Hcl 25 Mg Tab) 50 mg PO HSZ PRN PRN Reason: Insomnia Stop: 11/19/22 18:11 Hydroxyzine HCl (Hydroxyzine Hcl 25 Mg Tab) 25 mg PO Q4H PRN PRN Reason: Anxiety Stop: 11/19/22 18:11 Lactulose (Lactulose Syrup 20 Gm/30 Ml Udc) 20 gm PO DAILY SARA Stop: 11/20/22 08:59 Last Admin: 10/21/22 08:23 Dose: 20 gm Lamotrigine (Lamotrigine 25 Mg Tab) 50 mg PO HS [facility] Stop: 11/20/22 21:59 Lisinopril (Lisinopril 10 Mg Tab) 10 mg PO HS SARA Stop: 11/19/22 21:59 Last Admin: 10/20/22 20:15 Dose: 10 mg Magnesium Hydroxide (Magnesium Hydroxide Susp 30 Ml Udc) 30 ml PO DAILY PRN PRN Reason: Constipation Stop: 11/19/22 18:11 Metformin HCl (Metformin Hcl 500 Mg Tab) 1,000 mg PO BIDM [facility] Stop: 11/19/22 20:59 Last Admin: 10/21/22 08:23 Dose: 1,000 mg Miscellaneous (Dulaglutide [Trulicity] 0.75 Mg/0.5 Ml Inj: Order Awaiting Action) 1 each N/A QS [facility] Stop: 11/20/22 00:00 Last Admin: 10/21/22 12:23 Dose: Not Given Multivitamins (Multivitamin Tab) 1 tab PO HS [facility] Stop: 11/19/22 21:59 Last Admin: 10/20/22 20:15 Dose: 1 tab Naltrexone HCl (Naltrexone Hcl 50 Mg Tab) 50 mg PO HS [facility] Stop: 11/19/22 21:59 Last Admin: 10/20/22 20:16 Dose: 50 mg Nitroglycerin (Nitroglycerin Sl 0.4 Mg/Tab Tab) 0.4 mg SL UD PRN PRN Reason: CHEST PAINS Stop: 11/19/22 18:40 Pantoprazole Sodium (Pantoprazole 40 Mg Tab) 40 mg PO HS [facility] Stop: 11/19/22 21:59 Last Admin: 10/20/22 20:15 Dose: 40 mg Sodium Chloride (Sodium Chloride 0.65% Na Soln 45 Ml ([place])) 1 - 2 sprays NA PRN PRN PRN Reason: Nasal Dryness/Congestion Stop: 11/19/22 18:11
[2022-10-21] MEDS: NALTREXONE HCL 50 MG TAB PO SCH (21:07)
[2022-10-21] MEDS: hydrOXYzine HCl 25 MG TAB PO SCH (21:08)
[2022-10-21] MEDS: PANTOprazole 40 MG TAB PO SCH (21:08)
[2022-10-21] MEDS: lamoTRIgine 25 MG TAB PO SCH (21:09)
[2022-10-21] MEDS: ESCITALOPRAM OXALATE 20 MG TAB PO SCH (21:10)
[2022-10-21] MEDS: dilTIAZem HCL 120 MG CAPCR PO SCH (21:10)
[2022-10-21] MEDS: ASPIRIN 81 MG ECTAB PO SCH (21:10)
[2022-10-21] MEDS: ATORVASTATIN 20 MG TAB PO SCH (21:10)
[2022-10-21] MEDS: MULTIVITAMIN TAB PO SCH (21:10)
[2022-10-21] MEDS: lisinopril 10 MG TAB PO SCH (21:10)
[2022-10-22] MEDS: GABAPENTIN 300 MG CAP PO SCH ×3 (08:53→22:00)
[2022-10-22] MEDS: metFORMIN HCL 500 MG TAB PO SCH ×2 (08:53→17:12)
[2022-10-22] MEDS: LACTULOSE SYRUP 20 GM/30 ML UDC PO SCH (08:56)
--- NOTE | 2022-10-22 12:29 | Psychiatric Progress Note ---
Date of Service October 22, 2022 Impression / Recommendations Impression Paddy is a 52 yo male with a history of type II DM, RUSSELL, alcohol misuse, Chiari malformation, recurrent depression with SI presents following an intentional OD as a suicidal gesture following an argument with his who has since sought a PFA. 10/22/22: improving. (1) Depression: (2) Suicide attempt: (3) RUSSELL (nonalcoholic steatohepatitis): (4) T2DM (type 2 diabetes mellitus): Plan 10/22/22: continue current meds and tx plan, family meeting. 10/21/22: The patient was admitted to the [facility] ([facility] mental health unit) on q15 min checks (behavioral with suicide precautions) for safety. The patient will participate in group, recreational, and milieu therapies and will be offered additional individual and family sessions as clinically appropriate. Inventory Assets Strengths: therapy minded, intelligent Needs: improving coping skills, legal representation Suicide Risk Level Suicide Risk Level: Moderate (q15 min suicide checks) Risk Factors Assessment Male: Yes : Yes Do You Have Access To A Gun?: No Health Problems: Yes Mental Health Diagnoses: Yes Substance Use Disorders: Yes Previous Attempt: Yes Previous Psychiatric Hospitalization: Yes Protective Factors Assessment Stable Relationships: Yes (therapist and son) Interval History Identifying Information PADDY OLIVERA is a 52-year-old M who was residing in [place], has a history of 1 prior admission to in 2019, and was admitted on 10/20/22 17:08 on a 201 voluntary commitment s/p suicide attempt. The patient was admitted to the medical floor on 10/18/22 and transferred upon medical clearance. Chief Complaint "I feel so much better taking my medication consistently, especially the stuff for my heart." Review of Systems Sleep Information Total Hours of Sleep: 6 Meal Information Percent Meal Consumed - Breakfast: 100 Percent Meal Consumed - Lunch: 100 Percent Meal Consumed - Dinner: 100 Subjective Subjective Patient was seen & assessed and interval progress reviewed with nursing. rating mood 5-6/anxious. has been communicating with his son. overwhelmed by "everything I have to do, this divorce is so much more complicated." patient re quested his lactulose be discontinued as he hadn't taken it for months prior to his inpatient hospitalization/ammonia normal. Physical Exam Psychiatric Orientation: alert and oriented x 3 Apperance: appropriately dressed and appropriately groomed Eye Contact: good eye contact Motor Behavior: no abnormal motor movements Speech: normal rate/rhythm/volume of speech Affect: euthymic affect Mood: + depressed mood Thought Process: goal directed thought process Thought Content: reality based without delusions Suicidal Thoughts: denies suicidal thoughts Homicidal Thoughts: denies homicidal thoughts Hallucinations: no auditory hallucinations and no visual hallucinations Cognition: attention grossly intact and language grossly intact Estimated Intelligence: consistent with education level Insight: + limited insight Judgement: + limited judgement Vital Signs (Past 24 Hours) Last Vital Signs Temp 36.6 C 10/22/22 06:47 Pulse 73 10/22/22 06:47 Resp 16 10/22/22 06:47 BP 100/66 10/22/22 06:47 Pulse Ox 98 10/21/22 20:11 O2 Del Method 10/21/22 20:11 Results & Data ([facility]) Laboratory Results Laboratory Results - last 24 hr 10/22/22 06:38 POC Glucose 73 Current Inpatient Medications Current Inpatient Medications: Current Inpatient Medications Acetaminophen (Acetaminophen 325 Mg Tab) 650 mg PO Q4H PRN PRN Reason: Headache or Minor Fever Stop: 11/19/22 18:11 Al Hydrox/Mg Hydrox/Simethicone (Aluminum/Magnesium Susp 30 Ml Udc) 30 ml PO Q4H PRN PRN Reason: GI Upset Stop: 11/19/22 18:11 Aspirin (Aspirin 81 Mg Ectab) 81 mg PO HS [facility] Stop: 11/19/22 21:59 Last Admin: 10/21/22 21:10 Dose: 81 mg Atorvastatin Calcium (Atorvastatin 20 Mg Tab) 20 mg PO HS [facility] Stop: 11/19/22 21:59 Last Admin: 10/21/22 21:10 Dose: 20 mg Bismuth Subsalicylate (Bismuth Subsalicylate Liqd 236 Ml) 15 ml PO PRN PRN PRN Reason: Loose Stool Stop: 11/19/22 18:11 Diltiazem HCl (Diltiazem Hcl 120 Mg Capcr) 120 mg PO HS [facility] Stop: 11/20/22 21:59 Last Admin: 10/21/22 21:10 Dose: 120 mg Escitalopram Oxalate (Escitalopram Oxalate 20 Mg Tab) 20 mg PO HS [facility] Stop: 11/19/22 21:59 Last Admin: 10/21/22 21:10 Dose: 20 mg Gabapentin (Gabapentin 300 Mg Cap) 300 mg PO TID [facility] Stop: 11/19/22 20:59 Last Admin: 10/22/22 08:53 Dose: 300 mg Hydroxyzine HCl (Hydroxyzine Hcl 25 Mg Tab) 50 mg PO HSZ PRN PRN Reason: Insomnia Stop: 11/19/22 18:11 Hydroxyzine HCl (Hydroxyzine Hcl 25 Mg Tab) 25 mg PO Q4H PRN PRN Reason: Anxiety Stop: 11/19/22 18:11 Hydroxyzine HCl (Hydroxyzine Hcl 25 Mg Tab) 50 mg PO HS [facility] Stop: 11/20/22 21:59 Last Admin: 10/21/22 21:08 Dose: 50 mg Lamotrigine (Lamotrigine 25 Mg Tab) 50 mg PO HS [facility] Stop: 11/20/22 21:59 Last Admin: 10/21/22 21:09 Dose: 50 mg Lisinopril (Lisinopril 10 Mg Tab) 10 mg PO HS [facility] Stop: 11/19/22 21:59 Last Admin: 10/21/22 21:10 Dose: 10 mg Magnesium Hydroxide (Magnesium Hydroxide Susp 30 Ml Udc) 30 ml PO DAILY PRN PRN Reason: Constipation Stop: 11/19/22 18:11 Metformin HCl (Metformin Hcl 500 Mg Tab) 1,000 mg PO BIDM [facility] Stop: 11/19/22 20:59 Last Admin: 10/22/22 08:53 Dose: 1,000 mg Miscellaneous (Dulaglutide [Trulicity] 0.75 Mg/0.5 Ml Inj: Order Awaiting Action) 1 each N/A QS [facility] Stop: 11/20/22 00:00 Last Admin: 10/21/22 15:01 Dose: Not Given Multivitamins (Multivitamin Tab) 1 tab PO HS [facility] Stop: 11/19/22 21:59 Last Admin: 10/21/22 21:10 Dose: 1 tab Naltrexone HCl (Naltrexone Hcl 50 Mg Tab) 50 mg PO HS [facility] Stop: 11/19/22 21:59 Last Admin: 10/21/22 21:07 Dose: 50 mg Nitroglycerin (Nitroglycerin Sl 0.4 Mg/Tab Tab) 0.4 mg SL UD PRN PRN Reason: CHEST PAINS Stop: 11/19/22 18:40 Pantoprazole Sodium (Pantoprazole 40 Mg Tab) 40 mg PO HS [facility] Stop: 11/19/22 21:59 Last Admin: 10/21/22 21:08 Dose: 40 mg Sodium Chloride (Sodium Chloride 0.65% Na Soln 45 Ml ([place])) 1 - 2 sprays NA PRN PRN PRN Reason: Nasal Dryness/Congestion Stop: 11/19/22 18:11 Mental Health & Subst Abuse Tx Therapist Name of Therapist: Adelita Le Therapist's Date of Therapist Appointment: 11/02/22 Time of Therapist Appointment: 12 PM Therapy Appointment Comment: This appointment is via Zoom. Post Discharge Appointments Primary Care Physician Name Of Family Doctor: Dr. Palomares @ [facility] Provider Appointment Comment: Please follow-up with your PCP as needed. Contact Information Discharge
[2022-10-22] MEDS: ASPIRIN 81 MG ECTAB PO SCH (21:58)
[2022-10-22] MEDS: lisinopril 10 MG TAB PO SCH (21:58)
[2022-10-22] MEDS: PANTOprazole 40 MG TAB PO SCH (21:58)
[2022-10-22] MEDS: NALTREXONE HCL 50 MG TAB PO SCH (21:59)
[2022-10-22] MEDS: dilTIAZem HCL 120 MG CAPCR PO SCH (22:00)
[2022-10-22] MEDS: lamoTRIgine 25 MG TAB PO SCH (22:03)
[2022-10-22] MEDS: ESCITALOPRAM OXALATE 20 MG TAB PO SCH (22:04)
[2022-10-22] MEDS: MULTIVITAMIN TAB PO SCH (22:04)
[2022-10-22] MEDS: ATORVASTATIN 20 MG TAB PO SCH (22:05)
[2022-10-22] MEDS: hydrOXYzine HCl 25 MG TAB PO SCH (22:10)
[2022-10-23] MEDS: metFORMIN HCL 500 MG TAB PO SCH ×2 (09:02→17:26)
[2022-10-23] MEDS: GABAPENTIN 300 MG CAP PO SCH ×3 (09:02→21:32)
--- NOTE | 2022-10-23 14:07 | Psychiatric Progress Note ---
Date of Service October 23, 2022 Impression / Recommendations Impression Paddy is a 52 yo male with a history of type II DM, RUSSELL, alcohol misuse, Chiari malformation, recurrent depression with SI presents following an intentional OD as a suicidal gesture following an argument with his who has since sought a PFA. 10/23/22: mood improving but intermittent hypotension (1) Depression: (2) Suicide attempt: (3) RUSSELL (nonalcoholic steatohepatitis): (4) T2DM (type 2 diabetes mellitus): Plan 10/23/22: hold Vistaril hs scheduled dose pending hospitalist consult. increase frequency of vitals. 10/22/22: continue current meds and tx plan, family meeting. 10/21/22: The patient was admitted to the BHU ([facility] inpatient mental health unit) on q15 min checks (behavioral with suicide precautions) for safety. The patient will participate in group, recreational, and milieu therapies and will be offered additional individual and family sessions as clinically appropriate. Inventory Assets Strengths: therapy minded, intelligent Needs: improving coping skills, legal representation Suicide Risk Level Suicide Risk Level: Moderate (q15 min suicide checks) Risk Factors Assessment Male: Yes : Yes Do You Have Access To A Gun?: No Health Problems: Yes Mental Health Diagnoses: Yes Substance Use Disorders: Yes Previous Attempt: Yes Previous Psychiatric Hospitalization: Yes Protective Factors Assessment Stable Relationships: Yes (therapist and son) Interval History Identifying Information PADDY OLIVERA is a 52-year-old M who was residing in [place], has a history of 1 prior admission to in 2019, and was admitted on 10/20/22 17:08 on a 201 voluntary commitment s/p suicide attempt. The patient was admitted to the medical floor on 10/18/22 and transferred upon medical clearance. Chief Complaint "I feel hopeful but overwhelmed." Review of Systems Sleep Information Total Hours of Sleep: 6.25 Meal Information Percent Meal Consumed - Breakfast: 100 Percent Meal Consumed - Lunch: 100 Percent Meal Consumed - Dinner: 100 Nutrition Comment: declined dinner, ate meal before coming to unit Subjective Subjective Patient was seen & assessed and interval progress reviewed with nursing. Reports he did not sleep very well, nightmares. Reports that feels "syncopal" and had to hold on to his bed earlier to avoid falling. BP this am noted. He does have hold parameters on his cardizem. Physical Exam Psychiatric Orientation: alert and oriented x 3 Apperance: appropriately dressed and appropriately groomed Eye Contact: good eye contact Motor Behavior: no abnormal motor movements Speech: normal rate/rhythm/volume of speech Affect: euthymic affect and + depressed affect Mood: + depressed mood Thought Process: goal directed thought process Thought Content: reality based without delusions Suicidal Thoughts: denies suicidal thoughts Homicidal Thoughts: denies homicidal thoughts Hallucinations: no auditory hallucinations and no visual hallucinations Cognition: attention grossly intact and language grossly intact Estimated Intelligence: consistent with education level Insight: + limited insight Judgement: + limited judgement Vital Signs (Past 24 Hours) Last Vital Signs Temp 36.4 C L 10/23/22 06:44 Pulse 66 10/23/22 06:46 Resp 18 10/23/22 06:46 BP 82/46 L 10/23/22 06:46 Pulse Ox 98 10/21/22 20:11 O2 Del Method 10/21/22 20:11 Results & Data ([facility]) Current Inpatient Medications Current Inpatient Medications: Current Inpatient Medications Acetaminophen (Acetaminophen 325 Mg Tab) 650 mg PO Q4H PRN PRN Reason: Headache or Minor Fever Stop: 11/19/22 18:11 Al Hydrox/Mg Hydrox/Simethicone (Aluminum/Magnesium Susp 30 Ml Udc) 30 ml PO Q4H PRN PRN Reason: GI Upset Stop: 11/19/22 18:11 Aspirin (Aspirin 81 Mg Ectab) 81 mg PO HS SARA Stop: 11/19/22 21:59 Last Admin: 10/22/22 21:58 Dose: 81 mg Atorvastatin Calcium (Atorvastatin 20 Mg Tab) 20 mg PO HS SARA Stop: 11/19/22 21:59 Last Admin: 10/22/22 22:05 Dose: 20 mg Bismuth Subsalicylate (Bismuth Subsalicylate Liqd 236 Ml) 15 ml PO PRN PRN PRN Reason: Loose Stool Stop: 11/19/22 18:11 Diltiazem HCl (Diltiazem Hcl 120 Mg Capcr) 120 mg PO HS SARA Stop: 11/20/22 21:59 Last Admin: 10/22/22 22:00 Dose: 120 mg Escitalopram Oxalate (Escitalopram Oxalate 20 Mg Tab) 20 mg PO HS SARA Stop: 11/19/22 21:59 Last Admin: 10/22/22 22:04 Dose: 20 mg Gabapentin (Gabapentin 300 Mg Cap) 300 mg PO TID SARA Stop: 11/19/22 20:59 Last Admin: 10/23/22 09:02 Dose: 300 mg Hydroxyzine HCl (Hydroxyzine Hcl 25 Mg Tab) 50 mg PO HSZ PRN PRN Reason: Insomnia Stop: 11/19/22 18:11 Hydroxyzine HCl (Hydroxyzine Hcl 25 Mg Tab) 25 mg PO Q4H PRN PRN Reason: Anxiety Stop: 11/19/22 18:11 Last Admin: 10/22/22 14:25 Dose: 25 mg Hydroxyzine HCl (Hydroxyzine Hcl 25 Mg Tab) 50 mg PO HS SARA Stop: 11/20/22 21:59 Last Admin: 10/22/22 22:10 Dose: 50 mg Lamotrigine (Lamotrigine 25 Mg Tab) 50 mg PO HS SARA Stop: 11/20/22 21:59 Last Admin: 10/22/22 22:03 Dose: 50 mg Lisinopril (Lisinopril 10 Mg Tab) 10 mg PO HS SARA Stop: 11/19/22 21:59 Last Admin: 10/22/22 21:58 Dose: 10 mg Magnesium Hydroxide (Magnesium Hydroxide Susp 30 Ml Udc) 30 ml PO DAILY PRN PRN Reason: Constipation Stop: 11/19/22 18:11 Metformin HCl (Metformin Hcl 500 Mg Tab) 1,000 mg PO BIDM SARA Stop: 11/19/22 20:59 Last Admin: 10/23/22 09:02 Dose: 1,000 mg Miscellaneous (Dulaglutide [Trulicity] 0.75 Mg/0.5 Ml Inj: Order Awaiting Action) 1 each N/A QS SARA Stop: 11/20/22 00:00 Last Admin: 10/21/22 15:01 Dose: Not Given Multivitamins (Multivitamin Tab) 1 tab PO HS SARA Stop: 11/19/22 21:59 Last Admin: 10/22/22 22:04 Dose: 1 tab Naltrexone HCl (Naltrexone Hcl 50 Mg Tab) 50 mg PO HS SARA Stop: 11/19/22 21:59 Last Admin: 10/22/22 21:59 Dose: 50 mg Nitroglycerin (Nitroglycerin Sl 0.4 Mg/Tab Tab) 0.4 mg SL UD PRN PRN Reason: CHEST PAINS Stop: 11/19/22 18:40 Pantoprazole Sodium (Pantoprazole 40 Mg Tab) 40 mg PO HS SARA Stop: 11/19/22 21:59 Last Admin: 10/22/22 21:58 Dose: 40 mg Sodium Chloride (Sodium Chloride 0.65% Na Soln 45 Ml ([place])) 1 - 2 sprays NA PRN PRN PRN Reason: Nasal Dryness/Congestion Stop: 11/19/22 18:11 Mental Health & Subst Abuse Tx Therapist Name of Therapist: Adelita Le Therapist's Date of Therapist Appointment: 11/02/22 Time of Therapist Appointment: 12 PM Therapy Appointment Comment: This appointment is via Zoom. Post Discharge Appointments Primary Care Physician Name Of Family Doctor: Dr. Palomares @ [facility] Provider Appointment Comment: Please follow-up with your PCP as needed. Contact Information Discharge
--- NOTE | 2022-10-23 17:39 | Communication Note ---
Date of Service: October 23, [address] Moise. formal hospitalist consult to be held as rec is to hold lisinopril and monitor BP. Nurse updated to update patient. Vistaril has not been particularly effective for sleep, will offer trazodone 100 mg hs or melatonin 6 mg for sleep. Avoid controlleds given hx of OD and liver hx.
[2022-10-23] MEDS: PANTOprazole 40 MG TAB PO SCH (21:30)
[2022-10-23] MEDS: lamoTRIgine 25 MG TAB PO SCH (21:31)
[2022-10-23] MEDS: MULTIVITAMIN TAB PO SCH (21:31)
[2022-10-23] MEDS: NALTREXONE HCL 50 MG TAB PO SCH (21:31)
[2022-10-23] MEDS: dilTIAZem HCL 120 MG CAPCR PO SCH (21:32)
[2022-10-23] MEDS: ESCITALOPRAM OXALATE 20 MG TAB PO SCH (21:32)
[2022-10-23] MEDS: ATORVASTATIN 20 MG TAB PO SCH (21:32)
[2022-10-23] MEDS: ASPIRIN 81 MG ECTAB PO SCH (21:32)
[2022-10-23] MEDS: traZODone HCL 100 MG TAB PO PRN (21:35)
[2022-10-24] MEDS: metFORMIN HCL 500 MG TAB PO SCH ×2 (08:34→17:59)
[2022-10-24] MEDS: GABAPENTIN 300 MG CAP PO SCH ×3 (08:34→22:43)
[2022-10-24] MEDS ORDERED: busPIRone 5 MG TAB PO PRN (12:46)
--- NOTE | 2022-10-24 15:42 | Psychiatric Progress Note ---
Date of Service October 24, 2022 Impression / Recommendations Impression Paddy is a 52 yo male with a history of type II DM, RUSSELL, alcohol misuse, Chiari malformation, recurrent depression with SI presents following an intentional OD as a suicidal gesture following an argument with his who has since sought a PFA. 10/24/22: improving, monitor BP (1) Depression: (2) Suicide attempt: (3) RUSSELL (nonalcoholic steatohepatitis): (4) T2DM (type 2 diabetes mellitus): Plan 10/24/22: continue trazodone in place of Vistaril 10/23/22: hold Vistaril hs scheduled dose pending hospitalist consult. increase frequency of vitals. 10/22/22: continue current meds and tx plan, family meeting. 10/21/22: The patient was admitted to the BHU ([facility] mental health unit) on q15 min checks (behavioral with suicide precautions) for safety. The patient will participate in group, recreational, and milieu therapies and will be offered additional individual and family sessions as clinically appropriate. Inventory Assets Strengths: therapy minded, intelligent Needs: improving coping skills, legal representation Suicide Risk Level Suicide Risk Level: Moderate (q15 min suicide checks) Risk Factors Assessment Male: Yes : Yes Do You Have Access To A Gun?: No Health Problems: Yes Mental Health Diagnoses: Yes Substance Use Disorders: Yes Previous Attempt: Yes Previous Psychiatric Hospitalization: Yes Protective Factors Assessment Stable Relationships: Yes (therapist and son) Interval History Identifying Information PADDY OLIVERA is a 52-year-old M who was residing in [place], has a history of 1 prior admission to in 2019, and was admitted on 10/20/22 17:08 on a 201 voluntary commitment s/p suicide attempt. The patient was admitted to the medical floor on 10/18/22 and transferred upon medical clearance. Chief Complaint "I'm feeling like I can set the worry aside until it's time that I can actually do something with it." Review of Systems Sleep Information Total Hours of Sleep: 6.5 Meal Information Percent Meal Consumed - Breakfast: 90 Percent Meal Consumed - Lunch: 100 Percent Meal Consumed - Dinner: 100 Subjective Subjective Patient was seen & assessed and interval progress reviewed with nursing and social work. out of room more. Sleep significantly improved with trazodone. Understands rationale for d/c lisinopril. rated mood 7/10. Physical Exam Psychiatric Orientation: alert and oriented x 3 Apperance: appropriately dressed and appropriately groomed Eye Contact: good eye contact Motor Behavior: no abnormal motor movements Speech: normal rate/rhythm/volume of speech Affect: euthymic affect Mood: + depressed mood Thought Process: goal directed thought process Thought Content: reality based without delusions Suicidal Thoughts: denies suicidal thoughts Homicidal Thoughts: denies homicidal thoughts Hallucinations: no auditory hallucinations and no visual hallucinations Cognition: attention grossly intact and language grossly intact Estimated Intelligence: consistent with education level Insight: + limited insight Judgement: + limited judgement Vital Signs (Past 24 Hours) Last Vital Signs Temp 37.0 C 10/24/22 09:21 Pulse 70 10/24/22 09:21 Resp 18 10/24/22 09:21 BP 117/77 10/24/22 09:21 Pulse Ox 98 10/24/22 09:21 O2 Del Method 10/24/22 09:21 Results & Data ([facility]) Current Inpatient Medications Current Inpatient Medications: Current Inpatient Medications Acetaminophen (Acetaminophen 325 Mg Tab) 650 mg PO Q4H PRN PRN Reason: Headache or Minor Fever Stop: 11/19/22 18:11 Al Hydrox/Mg Hydrox/Simethicone (Aluminum/Magnesium Susp 30 Ml Udc) 30 ml PO Q4H PRN PRN Reason: GI Upset Stop: 11/19/22 18:11 Aspirin (Aspirin 81 Mg Ectab) 81 mg PO HS SARA Stop: 11/19/22 21:59 Last Admin: 10/23/22 21:32 Dose: 81 mg Atorvastatin Calcium (Atorvastatin 20 Mg Tab) 20 mg PO HS SARA Stop: 11/19/22 21:59 Last Admin: 10/23/22 21:32 Dose: 20 mg Bismuth Subsalicylate (Bismuth Subsalicylate Liqd 236 Ml) 15 ml PO PRN PRN PRN Reason: Loose Stool Stop: 11/19/22 18:11 Buspirone HCl (Buspirone 5 Mg Tab) 5 mg PO DAILY SARA Stop: 11/24/22 08:59 Buspirone HCl (Buspirone 5 Mg Tab) 5 mg PO TID PRN PRN Reason: Anxiety Stop: 11/23/22 13:59 Diltiazem HCl (Diltiazem Hcl 120 Mg Capcr) 120 mg PO HS SARA Stop: 11/20/22 21:59 Last Admin: 10/23/22 21:32 Dose: 120 mg Escitalopram Oxalate (Escitalopram Oxalate 20 Mg Tab) 20 mg PO HS SARA Stop: 11/19/22 21:59 Last Admin: 10/23/22 21:32 Dose: 20 mg Gabapentin (Gabapentin 300 Mg Cap) 300 mg PO TID SARA Stop: 11/19/22 20:59 Last Admin: 10/24/22 14:21 Dose: 300 mg Hydroxyzine HCl (Hydroxyzine Hcl 25 Mg Tab) 50 mg PO HS SARA Stop: 11/20/22 21:59 Last Admin: 10/22/22 22:10 Dose: 50 mg Lamotrigine (Lamotrigine 25 Mg Tab) 50 mg PO HS SARA Stop: 11/20/22 21:59 Last Admin: 10/23/22 21:31 Dose: 50 mg Magnesium Hydroxide (Magnesium Hydroxide Susp 30 Ml Udc) 30 ml PO DAILY PRN PRN Reason: Constipation Stop: 11/19/22 18:11 Metformin HCl (Metformin Hcl 500 Mg Tab) 1,000 mg PO BIDM SARA Stop: 11/19/22 20:59 Last Admin: 10/24/22 08:34 Dose: 1,000 mg Miscellaneous (Dulaglutide [Trulicity] 0.75 Mg/0.5 Ml Inj: Order Awaiting Action) 1 each N/A QS SARA Stop: 11/20/22 00:00 Last Admin: 10/23/22 15:36 Dose: Not Given Multivitamins (Multivitamin Tab) 1 tab PO HS SARA Stop: 11/19/22 21:59 Last Admin: 10/23/22 21:31 Dose: 1 tab Naltrexone HCl (Naltrexone Hcl 50 Mg Tab) 50 mg PO HS SARA Stop: 11/19/22 21:59 Last Admin: 10/23/22 21:31 Dose: 50 mg Nitroglycerin (Nitroglycerin Sl 0.4 Mg/Tab Tab) 0.4 mg SL UD PRN PRN Reason: CHEST PAINS Stop: 11/19/22 18:40 Pantoprazole Sodium (Pantoprazole 40 Mg Tab) 40 mg PO HS SARA Stop: 11/19/22 21:59 Last Admin: 10/23/22 21:30 Dose: 40 mg Sodium Chloride (Sodium Chloride 0.65% Na Soln 45 Ml (Alix)) 1 - 2 sprays NA PRN PRN PRN Reason: Nasal Dryness/Congestion Stop: 11/19/22 18:11 Trazodone HCl (Trazodone Hcl 100 Mg Tab) 100 mg PO HS PRN PRN Reason: Insomnia Stop: 11/22/22 17:41 Last Admin: 10/23/22 21:35 Dose: 100 mg Mental Health & Subst Abuse Tx Therapist Name of Therapist: Adelita Le Therapist's Date of Therapist Appointment: 11/02/22 Time of Therapist Appointment: 12 PM Therapy Appointment Comment: This appointment is via Zoom. Post Discharge Appointments Primary Care Physician Name Of Family Doctor: Dr. Palomares @ [facility] Provider Appointment Comment: Please follow-up with your PCP as needed. Contact Information Discharge
[2022-10-24] MEDS: ASPIRIN 81 MG ECTAB PO SCH (22:43)
[2022-10-24] MEDS: dilTIAZem HCL 120 MG CAPCR PO SCH (22:44)
[2022-10-24] MEDS: ATORVASTATIN 20 MG TAB PO SCH (22:44)
[2022-10-24] MEDS: ESCITALOPRAM OXALATE 20 MG TAB PO SCH (22:45)
[2022-10-24] MEDS: lamoTRIgine 25 MG TAB PO SCH (22:46)
[2022-10-24] MEDS: MULTIVITAMIN TAB PO SCH (22:46)
[2022-10-24] MEDS: NALTREXONE HCL 50 MG TAB PO SCH (22:47)
[2022-10-24] MEDS: PANTOprazole 40 MG TAB PO SCH (22:47)
[2022-10-24] MEDS: traZODone HCL 100 MG TAB PO PRN (23:43)
[2022-10-25] MEDS: GABAPENTIN 300 MG CAP PO SCH ×3 (08:18→22:06)
[2022-10-25] MEDS: metFORMIN HCL 500 MG TAB PO SCH ×2 (08:18→17:30)
[2022-10-25] MEDS: busPIRone 5 MG TAB PO SCH (08:18)
--- NOTE | 2022-10-25 16:00 | Psychiatric Progress Note ---
Date of Service October 25, 2022 Impression / Recommendations Impression Paddy is a 52 yo male with a history of type II DM, RUSSELL, alcohol misuse, Chiari malformation, recurrent depression with SI presents following an intentional OD as a suicidal gesture following an argument with his who has since sought a PFA. 10/25/22: BP improved, no subjective symptoms (1) Depression: (2) Suicide attempt: (3) RUSSELL (nonalcoholic steatohepatitis): (4) T2DM (type 2 diabetes mellitus): Plan 10/25/22: patient was offered a trial of buspar prn yesterday as he is mainly focussed on how to manage anxiety moving forward given issues he has to address outside of the hospital. Took Buspar 5 mg po qam this am scheduled to ensure he tries a few doses prior to discharge, may be increased, frequency is typically 2-3 times a day prn. 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 10/24/22: continue trazodone in place of Vistaril 10/23/22: hold Vistaril hs scheduled dose pending hospitalist consult. increase frequency of vitals. 10/22/22: continue current meds and tx plan, family meeting. 10/21/22: The patient was admitted to the BHU ([facility] inpatient mental health unit) on q15 min checks (behavioral with suicide precautions) for safety. The patient will participate in group, recreational, and milieu therapies and will be offered additional individual and family sessions as clinically appropriate. Inventory Assets Strengths: therapy minded, intelligent Needs: improving coping skills, legal representation Suicide Risk Level Suicide Risk Level: Moderate (q15 min suicide checks) Risk Factors Assessment Male: Yes : Yes Do You Have Access To A Gun?: No Health Problems: Yes Mental Health Diagnoses: Yes Substance Use Disorders: Yes Previous Attempt: Yes Previous Psychiatric Hospitalization: Yes Protective Factors Assessment Stable Relationships: Yes (therapist and son) Interval History Identifying Information PADDY OLIVERA is a 52-year-old M who was residing in [place], has a history of 1 prior admission to in 2019, and was admitted on 10/20/22 17:08 on a 201 voluntary commitment s/p suicide attempt. The patient was admitted to the medical floor on 10/18/22 and transferred upon medical clearance. Chief Complaint "I have much to do tomorrow." Review of Systems Sleep Information Total Hours of Sleep: 6.5 Meal Information Percent Meal Consumed - Breakfast: 100 Percent Meal Consumed - Lunch: 100 Percent Meal Consumed - Dinner: 100 Nutrition Comment: declined dinner, ate meal before coming to unit Subjective Subjective Patient was seen & assessed and interval progress reviewed with nursing and social work. continues to note improved sleep, no med concerns. Received first dose of Buspar trial this am. Will be staying with son. Physical Exam Psychiatric Orientation: alert and oriented x 3 Apperance: appropriately dressed and appropriately groomed Eye Contact: good eye contact Motor Behavior: no abnormal motor movements Speech: normal rate/rhythm/volume of speech Affect: euthymic affect Mood: + depressed mood Thought Process: goal directed thought process Thought Content: reality based without delusions Suicidal Thoughts: denies suicidal thoughts Homicidal Thoughts: denies homicidal thoughts Hallucinations: no auditory hallucinations and no visual hallucinations Cognition: attention grossly intact and language grossly intact Estimated Intelligence: consistent with education level Insight: + limited insight Judgement: + limited judgement Vital Signs (Past 24 Hours) Last Vital Signs Temp 36.6 C 10/25/22 00:00 Pulse 78 10/25/22 07:00 Resp 16 10/25/22 00:00 BP 87/55 L 10/25/22 07:00 Pulse Ox 97 10/25/22 00:00 O2 Del Method 10/25/22 00:00 Results & Data ([facility]) Current Inpatient Medications Current Inpatient Medications: Current Inpatient Medications Acetaminophen (Acetaminophen 325 Mg Tab) 650 mg PO Q4H PRN PRN Reason: Headache or Minor Fever Stop: 11/19/22 18:11 Al Hydrox/Mg Hydrox/Simethicone (Aluminum/Magnesium Susp 30 Ml Udc) 30 ml PO Q4H PRN PRN Reason: GI Upset Stop: 11/19/22 18:11 Aspirin (Aspirin 81 Mg Ectab) 81 mg PO HS SARA Stop: 11/19/22 21:59 Last Admin: 10/24/22 22:43 Dose: 81 mg Atorvastatin Calcium (Atorvastatin 20 Mg Tab) 20 mg PO HS SARA Stop: 11/19/22 21:59 Last Admin: 10/24/22 22:44 Dose: 20 mg Bismuth Subsalicylate (Bismuth Subsalicylate Liqd 236 Ml) 15 ml PO PRN PRN PRN Reason: Loose Stool Stop: 11/19/22 18:11 Buspirone HCl (Buspirone 5 Mg Tab) 5 mg PO DAILY SARA Stop: 11/24/22 08:59 Last Admin: 10/25/22 08:18 Dose: 5 mg Buspirone HCl (Buspirone 5 Mg Tab) 5 mg PO TID PRN PRN Reason: Anxiety Stop: 11/23/22 13:59 Last Admin: 10/25/22 15:07 Dose: 5 mg Diltiazem HCl (Diltiazem Hcl 120 Mg Capcr) 120 mg PO HS SARA Stop: 11/20/22 21:59 Last Admin: 10/24/22 22:44 Dose: 120 mg Escitalopram Oxalate (Escitalopram Oxalate 20 Mg Tab) 20 mg PO HS [facility] Stop: 11/19/22 21:59 Last Admin: 10/24/22 22:45 Dose: 20 mg Gabapentin (Gabapentin 300 Mg Cap) 300 mg PO TID SARA Stop: 11/19/22 20:59 Last Admin: 10/25/22 15:02 Dose: 300 mg Hydroxyzine HCl (Hydroxyzine Hcl 25 Mg Tab) 50 mg PO HS [facility] Stop: 11/20/22 21:59 Last Admin: 10/22/22 22:10 Dose: 50 mg Lamotrigine (Lamotrigine 25 Mg Tab) 50 mg PO HS [facility] Stop: 11/20/22 21:59 Last Admin: 10/24/22 22:46 Dose: 50 mg Magnesium Hydroxide (Magnesium Hydroxide Susp 30 Ml Udc) 30 ml PO DAILY PRN PRN Reason: Constipation Stop: 11/19/22 18:11 Metformin HCl (Metformin Hcl 500 Mg Tab) 1,000 mg PO BIDM SARA Stop: 11/19/22 20:59 Last Admin: 10/25/22 08:18 Dose: 1,000 mg Miscellaneous (Dulaglutide [Trulicity] 0.75 Mg/0.5 Ml Inj: Order Awaiting Action) 1 each N/A QS [facility] Stop: 11/20/22 00:00 Last Admin: 10/25/22 08:23 Dose: Not Given Multivitamins (Multivitamin Tab) 1 tab PO HS [facility] Stop: 11/19/22 21:59 Last Admin: 10/24/22 22:46 Dose: 1 tab Naltrexone HCl (Naltrexone Hcl 50 Mg Tab) 50 mg PO HS SARA Stop: 11/19/22 21:59 Last Admin: 10/24/22 22:47 Dose: 50 mg Nitroglycerin (Nitroglycerin Sl 0.4 Mg/Tab Tab) 0.4 mg SL UD PRN PRN Reason: CHEST PAINS Stop: 11/19/22 18:40 Pantoprazole Sodium (Pantoprazole 40 Mg Tab) 40 mg PO HS SARA Stop: 11/19/22 21:59 Last Admin: 10/24/22 22:47 Dose: 40 mg Sodium Chloride (Sodium Chloride 0.65% Na Soln 45 Ml ([place]enn)) 1 - 2 sprays NA PRN PRN PRN Reason: Nasal Dryness/Congestion Stop: 11/19/22 18:11 Trazodone HCl (Trazodone Hcl 100 Mg Tab) 100 mg PO HS SARA Stop: 11/24/22 21:59 Mental Health & Subst Abuse Tx Therapist Name of Therapist: Adelita Le Therapist's Date of Therapist Appointment: 11/02/22 Time of Therapist Appointment: 12 PM Therapy Appointment Comment: This appointment is via Zoom. Manager Winter Name of Manager Winter: [employer] [facility] ([facility] Management) Phone Number for Manager Winter: [phone] Case Management Appointment Comment: Please call for BCM services if residing in [facility]. Post Discharge Appointments Primary Care Physician Name Of Family Doctor: Dr. Palomares @ [facility] Provider Appointment Comment: Please follow-up with your PCP as needed. Contact Information Discharge
[2022-10-25] MEDS: ATORVASTATIN 20 MG TAB PO SCH (22:05)
[2022-10-25] MEDS: NALTREXONE HCL 50 MG TAB PO SCH (22:05)
[2022-10-25] MEDS: ASPIRIN 81 MG ECTAB PO SCH (22:05)
[2022-10-25] MEDS: MULTIVITAMIN TAB PO SCH (22:05)
[2022-10-25] MEDS: dilTIAZem HCL 120 MG CAPCR PO SCH (22:05)
[2022-10-25] MEDS: PANTOprazole 40 MG TAB PO SCH (22:05)
[2022-10-25] MEDS: lamoTRIgine 25 MG TAB PO SCH (22:05)
[2022-10-25] MEDS: ESCITALOPRAM OXALATE 20 MG TAB PO SCH (22:06)
[2022-10-25] MEDS: traZODone HCL 100 MG TAB PO SCH (22:49)
[2022-10-26] MEDS: busPIRone 5 MG TAB PO SCH ×2 (08:29→22:27)
[2022-10-26] MEDS: GABAPENTIN 300 MG CAP PO SCH ×3 (08:30→22:28)
[2022-10-26] MEDS: metFORMIN HCL 500 MG TAB PO SCH ×2 (08:30→17:24)
--- NOTE | 2022-10-26 10:55 | Psychiatric Progress Note ---
Date of Service October 26, 2022 Impression / Recommendations Impression Paddy is a 52 yo male with a history of type II DM, RUSSELL, alcohol misuse, Chiari malformation, recurrent depression with SI presents following an intentional OD as a suicidal gesture following an argument with his who has since sought a PFA. Diagnostically consistent with depression and anxiety. 10/26/22: Mood improving and tolerating medications without side effects. Agrees to scheduled buspar 5mg BID to help with anxiety. (1) Depression: (2) Suicide attempt: (3) RUSSELL (nonalcoholic steatohepatitis): (4) T2DM (type 2 diabetes mellitus): Plan 10/26/22: Increase buspar to 5mg BID. 10/25/22: patient was offered a trial of buspar prn yesterday as he is mainly focussed on how to manage anxiety moving forward given issues he has to address outside of the hospital. Took Buspar 5 mg po qam this am scheduled to ensure he tries a few doses prior to discharge, may be increased, frequency is typically 2-3 times a day prn. Patient agrees he prefers to defer further changes in his BP med to outpatient basis as good relationship with PCP office and manager wholesale. 10/24/22: continue trazodone in place of Vistaril 10/23/22: hold Vistaril hs scheduled dose pending hospitalist consult. increase frequency of vitals. 10/22/22: continue current meds and tx plan, family meeting. 10/21/22: The patient was admitted to the [facility] ([facility] mental health unit) on q15 min checks (behavioral with suicide precautions) for safety. The patient will participate in group, recreational, and milieu therapies and will be offered additional individual and family sessions as clinically appropriate. Inventory Assets Strengths: therapy minded, intelligent Needs: improving coping skills, legal representation Suicide Risk Level Suicide Risk Level: Moderate (q15 min suicide checks) (suicide gesture prior to admission but mood improving, denies SI and future oriented. Agrees to alert nursing if SI re-emerges or if he feels unable to remain safe/needs more morrell pport.) Risk Factors Assessment Male: Yes : Yes Do You Have Access To A Gun?: No Health Problems: Yes Mental Health Diagnoses: Yes Substance Use Disorders: Yes Previous Attempt: Yes Previous Psychiatric Hospitalization: Yes Protective Factors Assessment Stable Relationships: Yes (therapist and son) Interval History Identifying Information PADDY OLIVERA is a 52-year-old M who was residing in [place], has a history of 1 prior admission to in 2019, and was admitted on 10/20/22 17:08 on a 201 voluntary commitment s/p suicide attempt. The patient was admitted to the medical floor on 10/18/22 and transferred upon medical clearance. Chief Complaint "The buspar or the groups really seem to be helping, I still have a lot of stuff going on to deal with in the next few weeks but I feel comfortable, I'm not as anxious". Review of Systems Sleep Information Total Hours of Sleep: 6 Meal Information Percent Meal Consumed - Breakfast: 100 Percent Meal Consumed - Lunch: 100 Percent Meal Consumed - Dinner: 100 Nutrition Comment: declined dinner, ate meal before coming to unit Subjective Subjective Patient was seen & assessed and interval progress reviewed with treatment team nursing and social work. He endorses improving mood with reduction in anxiety and feels well supported by his PCP, his son and realizing "I have a lot of peop le who care about me and want to help". Continues to have grief about pending divorce and new PFA but also notes he is now "focused on moving forward" and denies SI. In reflecting on the attempt he notes he was not necessarily attempting to noting "I think I did it out of spite and anger, I didn't want to do anything to , I picked my least strong medications to take". Finds his son very helpful and is very proud of him and finds this and therapy helpful in challenging cognitive distortions from childhood trauma. Future-focused. Trazodone helping with sleep maintenance. Really likes buspar and no side effects from this. Physical Exam Psychiatric Orientation: alert and oriented x 3 Apperance: appropriately dressed and appropriately groomed Eye Contact: good eye contact Motor Behavior: no abnormal motor movements Speech: normal rate/rhythm/volume of speech Affect: + anxious affect Mood: + depressed mood and + anxious mood Thought Process: goal directed thought process Thought Content: reality based without delusions Suicidal Thoughts: denies suicidal thoughts Homicidal Thoughts: denies homicidal thoughts Hallucinations: no auditory hallucinations and no visual hallucinations Cognition: attention grossly intact and language grossly intact Estimated Intelligence: consistent with education level Insight: + fair insight Judgement: + fair judgement Vital Signs (Past 24 Hours) Last Vital Signs Temp 36.5 C 10/26/22 06:56 Pulse 70 10/26/22 06:57 Resp 16 10/26/22 06:56 BP 107/66 10/26/22 06:57 Pulse Ox 97 10/25/22 00:00 O2 Del Method 10/25/22 00:00 Results & Data ([facility]) Current Inpatient Medications Current Inpatient Medications: Current Inpatient Medications Acetaminophen (Acetaminophen 325 Mg Tab) 650 mg PO Q4H PRN PRN Reason: Headache or Minor Fever Stop: 11/19/22 18:11 Last Admin: 10/25/22 21:07 Dose: 650 mg Al Hydrox/Mg Hydrox/Simethicone (Aluminum/Magnesium Susp 30 Ml Udc) 30 ml PO Q4H PRN PRN Reason: GI Upset Stop: 11/19/22 18:11 Aspirin (Aspirin 81 Mg Ectab) 81 mg PO HS SARA Stop: 11/19/22 21:59 Last Admin: 10/25/22 22:05 Dose: 81 mg Atorvastatin Calcium (Atorvastatin 20 Mg Tab) 20 mg PO HS SARA Stop: 11/19/22 21:59 Last Admin: 10/25/22 22:05 Dose: 20 mg Bismuth Subsalicylate (Bismuth Subsalicylate Liqd 236 Ml) 15 ml PO PRN PRN PRN Reason: Loose Stool Stop: 11/19/22 18:11 Buspirone HCl (Buspirone 5 Mg Tab) 5 mg PO BID SARA Stop: 11/25/22 20:59 Diltiazem HCl (Diltiazem Hcl 120 Mg Capcr) 120 mg PO HS SARA Stop: 11/20/22 21:59 Last Admin: 10/25/22 22:05 Dose: 120 mg Escitalopram Oxalate (Escitalopram Oxalate 20 Mg Tab) 20 mg PO HS SARA Stop: 11/19/22 21:59 Last Admin: 10/25/22 22:06 Dose: 20 mg Gabapentin (Gabapentin 300 Mg Cap) 300 mg PO TID SARA Stop: 11/19/22 20:59 Last Admin: 10/26/22 08:30 Dose: 300 mg Hydroxyzine HCl (Hydroxyzine Hcl 25 Mg Tab) 50 mg PO HS SARA Stop: 11/20/22 21:59 Last Admin: 10/22/22 22:10 Dose: 50 mg Lamotrigine (Lamotrigine 25 Mg Tab) 50 mg PO HS SARA Stop: 11/20/22 21:59 Last Admin: 10/25/22 22:05 Dose: 50 mg Magnesium Hydroxide (Magnesium Hydroxide Susp 30 Ml Udc) 30 ml PO DAILY PRN PRN Reason: Constipation Stop: 11/19/22 18:11 Metformin HCl (Metformin Hcl 500 Mg Tab) 1,000 mg PO BIDM SARA Stop: 11/19/22 20:59 Last Admin: 10/26/22 08:30 Dose: 1,000 mg Miscellaneous (Dulaglutide [Trulicity] 0.75 Mg/0.5 Ml Inj: Order Awaiting Action) 1 each N/A QS SARA Stop: 11/20/22 00:00 Last Admin: 10/25/22 16:43 Dose: Not Given Multivitamins (Multivitamin Tab) 1 tab PO HS SARA Stop: 11/19/22 21:59 Last Admin: 10/25/22 22:05 Dose: 1 tab Naltrexone HCl (Naltrexone Hcl 50 Mg Tab) 50 mg PO HS SARA Stop: 11/19/22 21:59 Last Admin: 10/25/22 22:05 Dose: 50 mg Nitroglycerin (Nitroglycerin Sl 0.4 Mg/Tab Tab) 0.4 mg SL UD PRN PRN Reason: CHEST PAINS Stop: 11/19/22 18:40 Pantoprazole Sodium (Pantoprazole 40 Mg Tab) 40 mg PO HS SARA Stop: 11/19/22 21:59 Last Admin: 10/25/22 22:05 Dose: 40 mg Sodium Chloride (Sodium Chloride 0.65% Na Soln 45 Ml ([place])) 1 - 2 sprays NA PRN PRN PRN Reason: Nasal Dryness/Congestion Stop: 11/19/22 18:11 Trazodone HCl (Trazodone Hcl 100 Mg Tab) 100 mg PO HS SARA Stop: 11/24/22 21:59 Last Admin: 10/25/22 22:49 Dose: 100 mg Mental Health & Subst Abuse Tx Therapist Name of Therapist: Adelita Le Therapist's Date of Therapist Appointment: 11/02/22 Time of Therapist Appointment: 12 PM Therapy Appointment Comment: This appointment is via Zoom. Registrar Museum Name of Registrar Museum: [facility] ([place] [facility]) Phone Number for Registrar Museum: [phone] Case Management Appointment Comment: Please call for BCM services if residing in [facility]. Post Discharge Appointments Primary Care Physician Name Of Family Doctor: Donald Millre - Dr. Palomares (appt will be with Dr. Harp) Primary Care Date of Appointment with PCP: 11/05/22 Time of Appointment with PCP: 3:05 PM Provider Appointment Comment: [address], [place] [address] Specialist Name of Specialist: [facility] - Dr. Lechuga Phone Number for Specialist: Date of Appointment with Specialist: 11/09/22 Time of Appointment with Specialist: 3:00 PM Specialty Appointment Comment: [address], [place] [address] Contact Information Discharge
[2022-10-26] MEDS ORDERED: hydrOXYzine HCl 25 MG TAB PO PRN (10:56)
[2022-10-26] MEDS: ESCITALOPRAM OXALATE 20 MG TAB PO SCH (22:27)
[2022-10-26] MEDS: lamoTRIgine 25 MG TAB PO SCH (22:27)
[2022-10-26] MEDS: PANTOprazole 40 MG TAB PO SCH (22:27)
[2022-10-26] MEDS: dilTIAZem HCL 120 MG CAPCR PO SCH (22:27)
[2022-10-26] MEDS: ATORVASTATIN 20 MG TAB PO SCH (22:27)
[2022-10-26] MEDS: MULTIVITAMIN TAB PO SCH (22:28)
[2022-10-26] MEDS: traZODone HCL 100 MG TAB PO SCH (22:28)
[2022-10-26] MEDS: ASPIRIN 81 MG ECTAB PO SCH (22:28)
[2022-10-26] MEDS: NALTREXONE HCL 50 MG TAB PO SCH (22:28)
[2022-10-27] MEDS: busPIRone 5 MG TAB PO SCH (08:01)
[2022-10-27] MEDS: GABAPENTIN 300 MG CAP PO SCH (08:01)
[2022-10-27] MEDS: metFORMIN HCL 500 MG TAB PO SCH (08:02)
--- NOTE | 2022-10-27 08:36 | Discharge Summary ---
Date of Service October 27, 2022 History of Present Illness Patient reports that he deals with chronic medical issues and has been stressed but "holding my own with therapy" until 2 months ago. He had taken oxy after a syncopal episode/fall where he fractured ribs and when it ran out "it's easier to knot picker cloth a bottle" to deal with the pain. He admitted to his that he relapsed (having quit alcohol for 18 months "totally on my own.") and she saw this an an opportunity to ask for a divorce. He has been residing in the home but it has been tense and during an argument he ended up sending some texts to his son "that I now regret" and taking an unknown amount of Ativan and primodine on 10/17/22. 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 His sleep has been disrupted and he doesn't feel like "doing much of anything" and is overwhelmed by the PFA he was served with by as can't return home. He does have a son from a previous relationship that lives in [place] as a support. He hasn't been able to work for 2 years due to combination of health issues and change in [employer] business due to COVID. He was noncompliant with many of his medications. Physical Exam Vital Signs (Past 24 Hours) Last Vital Signs Temp 36.8 C 10/27/22 06:52 Pulse 85 10/27/22 06:53 Resp 16 10/27/22 06:52 BP 103/64 10/27/22 06:53 Pulse Ox 97 10/25/22 00:00 O2 Del Method 10/25/22 00:00 See admission H&P and DOD summary. Principal Diagnosis Major Depressive Disorder Psychiatric Data See daily stay summary. In short, patient was engaged with the social/therapeutic milieu of the unit, safety was maintained and the patient was cooperative with care. He was supportive and encouraging of peers and felt that hospitalization was very helpful for learning to re-utilize coping skills and to remind himself of his resiliency. Medication changes included initiation of trazodone 100mg qhs for insomnia, initiation of buspirone 5mg BID for anxiety and discontinuation of hydroxyzine and lorazepam and they tolerated this well. If anxiety worsens in the future buspirone could be further titrated up to 10mg TID. A support session was held and safety plan was completed prior to discharge. He actively and insightfully participated in safety planning and in discussions about ways to seek support and recognizing warning signs and utilizing coping skills. Reviewed mobile apps that could be used for additional ways to have their safety plan and contacts easily available should thoughts of SI re-emerge in the future. Reviewed importance of seeking emergency care should SI intensify, worsen or should they feel unsafe in the future which they agree to do. On the day of discharge he stated his mood was "cautiously optimistic" and remained future-oriented including moving to live with his son in [place] through the holidays, working on finding legal representation and engaging in aftercare appointments for therapy, with his primary care physician and option to begin case management services. Day of Discharge Assessment Today the patient voices readiness for discharge. They note improvement in mood and anxiety. They deny thoughts of harm to self or others. Thoughts are organized and they are clinically improved from admission. There is no evidence of psychosis. They improved in the hospital with support and medication adjustments. They agree to take medications as prescribed and keep follow-up appointments. At the time of the discharge they are deemed to be stable and appropriate for outpatient level of care. They are not deemed to be at imminent risk of harm to self or others. They are aware of emergency and crisis services. Knows to call 911 or go to nearest emergency care center if in a crisis which cannot be handled as an outpatient. Transition of Care Transition Of Care Record: was reviewed with the patient Advance Directives Advance Directives Information Provided: Yes Advance Directives: Yes Mental Health Advance Directive: No Advance Directives on File: No Living Will: Yes Power of Parole Director: Yes Power of Parole Director Name: Advance Directives Reason:: Declines as Mental Health Visit. Suicide Risk Level Suicide Risk Level Comments: Acute risk is low given improvement in mood and denial of SI, lack of access to lethal means, plan to avoid substance use, improvement in sleep, hopefulness and decrease in anxiety. Chronic risk is moderate given some non-modifiable risk factors including psychiatric co-morbid diagnoses, periods of impulsivity, prior attempt, emotional reactivity, chronic illness, prior psychiatric hospitalizations, new legal charge/PFA, pending divorce, childhood trauma but also with protective factors including very supportive son, good rapport with his therapist and medical providers, support from his ex- from prior marriage and resilient. Counseled on ways to reduce acute and chronic risk including engaging with outpatient providers, using safety plan if needed, utilizing supports, taking medication, and using coping skills. Modifiable risk factors of SI, anxiety and depression were addressed during hospitalization through development of new coping skills, safety planning, and medication adjustments. Risk Factors Assessment Male: Yes : Yes Do You Have Access To A Gun?: No Health Problems: Yes Mental Health Diagnoses: Yes Substance Use Disorders: Yes Previous Attempt: Yes Previous Psychiatric Hospitalization: Yes Hopelessness: No Protective Factors Assessment Employed: Yes Stable Relationships: Yes (therapist and son) Supportive Family: Yes (son) Good Rapport with Provider: Yes Opioid Risk Protocol Educated on use ofnaloxone nasal spray. Kit offered to patient. Patient decl keiko naloxone kit today, no history of opioid use disorder, had opioids for pain in past but none currently and plans to avoid any future opioid use and will not be around any opioids at his son's home. Discharge Data Lab Results 10/21/22 10/22/22 08:20 06:38 POC Glucose 81 73 Hospital Course (1) Depression: (2) Suicide attempt: (3) RUSSELL (nonalcoholic steatohepatitis): (4) T2DM (type 2 diabetes mellitus): Plan 10/26/22: Increase buspar to 5mg BID. 10/25/22: patient was offered a trial of buspar prn yesterday as he is mainly focussed on how to manage anxiety moving forward given issues he has to address outside of the hospital. Took Buspar 5 mg po qam this am scheduled to ensure he tries a few doses prior to discharge, may be increased, frequency is typically 2-3 times a day prn. Patient agrees he prefers to defer further changes in his BP med to outpatient basis as good relationship with PCP office and gravity flow irrigator. 10/24/22: continue trazodone in place of Vistaril 10/23/22: hold Vistaril hs scheduled dose pending hospitalist consult. increase frequency of vitals. 10/22/22: continue current meds and tx plan, family meeting. 10/21/22: The patient was admitted to the [facility] (locked inpatient mental health unit) on q15 min checks (behavioral with suicide precautions) for safety. The patient will participate in group, recreational, and milieu therapies and will be offered additional individual and family sessions as clinically appropriate. Mental Health & Subst Abuse Tx Therapist Name of Therapist: Adelita Le Therapist's Date of Therapist Appointment: 11/02/22 Time of Therapist Appointment: 12 PM Therapy Appointment Comment: This appointment is via Zoom. Professor Of Theology Name of Professor Of Theology: [facility] ([facility]) Phone Number for Professor Of Theology: [phone] Case Management Appointment Comment: Please call for BCM services if residing in [facility]. Post Discharge Appointments Primary Care Physician Name Of Family Doctor: Donald Miller - Dr. Palomares (appt will be with Dr. Harp) Primary Care Date of Appointment with PCP: 11/05/22 Time of Appointment with PCP: 3:05 PM Provider Appointment Comment: [address], [place] [address] Specialist Name of Specialist: [facility] - Dr. Lechuga Phone Number for Specialist: Date of Appointment with Specialist: 11/09/22 Time of Appointment with Specialist: 3:00 PM Specialty Appointment Comment: [address], [place] [address] Other #1: Name of Aftercare Appointment: [facility] - [facility] Phone Number of Aftercare Appointment: Time of Aftercare Appointment: Please call for BCM services if residing in [facility] Aftercare Appointment Comment: Visit [email or web address] for additional resources. Contact Information Discharge Discharge Plan Discharge Items Patient Disposition: Home - Self-Care Reason For Visit: MDD Discharge Diagnosis: Major Depressive Disorder Activity: Resume your previous activity Non-emergency contact: Primary Care Provider and Therapist Call non-emergency contact if: you have any medication questions and your symptoms worsen Follow-up/Referrals: Chicho Palomares MD [Primary Care Provider] - Diet: Regular Addtl Attending Provider Instructions: Optional mobile apps: -Suicide safety plan -Virtual Hope Box -Panic electromechanical engineer SPECIAL CARE INSTRUCTIONS: 1. Follow through with your scheduled aftercare appointments. If unable to keep an appointment, please call to reschedule. 2. Take your medication only as prescribed. Medication should not be changed or stopped without the approval of your doctor. In the event of worsening symptoms or concerns about side effects, contact your doctor immediately. 3. Utilize new healthy coping skills, anger management skills, and stress management skills learned during your hospitalization. Journal feelings and process them with a support person. Identify stressors or situations that may result in relapse, deterioration or inappropriate behaviors and develop a plan to deal with those issues. 4. If your coping skills are ineffective and you are in crisis, contact your outpatient providers for direction. If unable to reach your providers, please call the [facility] CRISIS LINE AT , go to the [facility] walk-in center at [address] [place] [address] A, [place], or go to the closest Emergency Room. 5. Avoid alcohol and un-prescribed drugs. 6. You have been provided with the Mental Health Advance Directives Pamphlet for your review. 7. Your condition is stable for discharge to outpatient level of care, but recovery is an ongoing process. Ifthoughts to harm yourself or others return, follow the safety plan developed during your stay. Planning for a safe return home includes securing weapons. Our treatment team recommends weaponsbe removed from the home until your outpatient provider reassesses your progress. In rare cases where the items themselvescannot be removed, guns and ammunitionshould be secured separatelyand keys stored by a reliable personoutside of the home. If you were admitted on an involuntary commitment, the police or other legal authorities may be involved in this process. AFTERCARE APPOINTMENTS: * Please call your insurance company prior to your scheduled appointment to confirm your aftercare providers are covered. Take your insurance information to your appointments. WHO TO CALL AND WHEN: Medical Emergencies: For questions or emergencies related to your hospital stay, please contact the Inpatient Behavioral Health Unit at [phone]. A it security project manager is on-call 21/06 for the Behavioral Health Unit for emergencies At any time you feel your situation is an emergency, you may also call 911 immediately. Pending Studies at Discharge: No Stand-Alone Forms: My [facility] Medications and DC Order Prescriptions: New buspirone 5 mg Tablet 5 mg PO BID 30 Days Qty: 60 0RF trazodone 100 mg Tablet 100 mg PO HS 30 Days Qty: 30 0RF Continued atorvastatin 20 mg tablet 20 mg PO HS Qty: 90 3RF (DME) OneTouch Verio test strips Strip See Rx Instructions .ROUTE .MEDSUPPLY Qty: 300 1RF Rx Instructions: test TID (DME) lancets [Onetouch Delica Safety Lancet] 30 gauge misc See Rx Instructions .Route Qty: 300 1RF Rx Instructions: test BD TID diltiazem HCl 120 mg capsule,extended release 24hr 120 mg PO DAILY metformin 500 mg tablet 1,000 mg PO BID Rx Instructions: take with food. multivitamin [Daily Multi-Vitamin] Tablet 1 tab PO HS aspirin 81 mg Tablet,Delayed Release (Dr/Ec) 81 mg PO HS Qty: 0 0RF vitamin B complex Tablet 1 tab PO HS pantoprazole [Protonix] 40 mg tablet,delayed release (DR/EC) 40 mg PO HS gabapentin 400 mg capsule 300 mg PO TID escitalopram oxalate 20 mg tablet 20 mg HS Trulicity 0.75 mg/0.5 mL Pen Injector 0.75 mg SUBCUT CHILDERS@09 acetaminophen [Tylenol Extra Strength] 500 mg Tablet 500 - 1,000 mg PO DIRECTED PRN (Reason: Pain) Changed naltrexone 50 mg Tablet 50 mg PO HS Qty: 1 0RF lamotrigine 25 mg tablet 50 mg PO HS Qty: 1 0RF Discontinued lisinopril 10 mg tablet 10 mg PO HS Qty: 90 3RF hydroxyzine pamoate [Vistaril] 25 mg capsule 25 mg PO HS lorazepam 1 mg Tablet 1 mg PO DAILY PRN (Reason: Unknown) lactulose 20 gram/30 mL Solution 20 g PO DAILY Qty: 900 0RF primidone 50 mg tablet 50 mg PO DAILY PRN (Reason: tremors ) No Action nitroglycerin [Nitrostat] 0.4 mg tablet, sublingual 0.4 mg Sublingual UD PRN (Reason: CHEST PAINS) Qty: 25 5RF Discharge Orders: Discharge Order (Routine); Ordered 10/27/22 Ordered By: Sahara Purcell Admission Data Admit Date/Time: 10/20/22 17:08 Attending Provider: Sahara Purcell Admit Provider: Abigail Rosario Primary Care Provider: Chicho Palomares Other Interventions: Discharge Summary Assessment (RN) Last Done: 10/27/22 11:09 PSY Interdisciplinary Discharge Planning Last Done: 10/27/22 11:50 Coding Level of Care Code 94493 D/C day mgmt > 30 min Diagnoses Depression F32.A Suicide attempt T14.91XA RUSSELL (nonalcoholic steatohepatitis) K75.81 T2DM (type 2 diabetes mellitus) E11.9 Time Spent (min) 45
== END 2022-10-27 12:12 | disposition home or self-care (01) | DRG 881 ==
LOC: 3S 17:08 → SUATTDRO 17:08